=== PATIENT | male | born 1935 | race Caucasian/White ===

== ENCOUNTER 2023-08-04 13:37 | Outpatient (AMB) | payer OTHER, SELFPAY ==
--- NOTE | 2023-08-04 13:47 | MHC.OFFVIS ---
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: No Accompanied by: Spouse Allergies Penicillins [PENICILLINS] Allergy (Intermediate, Verified 08/04/23 13:54) RASH PENICILLIN Allergy (Unknown, Uncoded 08/04/23 13:54) Rash Medication List - Last Reconciled 08/04/23 by Clayton John MD acetaminophen ER (Tylenol Arthritis Pain) 650 mg PO Q12H ammonium lactate 12% 1 appl topical DAILY aspirin (Adult Aspirin Regimen) 81 mg PO DAILY carboxymethylcellulose sodium 0.5% 1 drp ophthalmic (eye) QID ferrous sulfate (Feosol) 325 mg PO DAILY latanoprost 0.005% 1 drp ophthalmic (eye) DAILY lisinopril 10 mg PO DAILY metoprolol tartrate 50 mg PO BID multivitamin (Multiple Vitamins tablet) 1 tab PO DAILY omeprazole 20 mg PO DAILY rosuvastatin 40 mg PO DAILY tamsulosin 0.4 mg PO BEDTIME HPI HPI Comments History of Present Illness Details Negar is here for consultation regarding coronary disease. History of CAD/PCI around 2001. Unclear anatomy. Any case, it seems that he has generally been stable all this while. No recurrent cardiac issues. [facility] Within limits of his activity, no clear-cut symptoms like angina or shortness of breath. Many comorbidities. [facility] Medical History (Updated 08/04/23 @ 14:20 by Clayton John MD) Right bundle branch block Peptic gastritis COPD (chronic obstructive pulmonary disease) TIA (transient ischemic attack) Benign prostatic hyperplasia Erectile dysfunction Hyperlipidemia, unspecified Essential hypertension BETINA (obstructive sleep apnea) Atherosclerotic cardiovascular disease Surgical History (Updated 08/04/23 @ 13:58 by Heather Mason) Hx of cardiac cath Family History (Updated 08/04/23 @ 13:59 by Heather Mason) Mother Stroke Father Glaucoma Social History (Updated 08/04/23 @ 13:59 by Heather Mason) Alcohol intake: never Patient Tobacco Use Status: Former Tobacco user Quit Date: 2001 Review of Systems Const Denies chills, Denies daytime sleepiness, Denies fatigue, Denies fever(s), Denies frequent falls, Denies night sweats, Denies snoring, Denies weakness, Denies weight gain and Denies weight loss Eyes Denies loss of vision ENT Denies dizziness and Denies hearing loss Card Denies chest pain, Denies chest pain with activity, Denies syncope, Denies rapid heart rate, Denies edema, Denies claudication, Denies leg edema, Denies lightheadedness, Denies palpitations, Denies dyspnea and Denies orthopnea Resp Denies cough, Denies excessive phlegm production, Denies dyspnea, Denies snoring and Denies wheezing GI Denies abdominal pain, Denies hematochezia, Denies change in bowel habits, Denies change in stool character, Denies heartburn, Denies nausea and Denies vomiting Denies hematuria, Denies dysuria and Denies urinary frequency Musc Denies arthralgias, Denies muscle weakness, Denies numbness and Denies tingling Skin/Breast Denies nail changes and Denies rash Neuro Denies Abnormal speech present, Denies dizziness, Denies syncope, Denies frequent falls, Denies loss of vision, Denies memory loss, Denies numbness, Denies tingling and Denies weakness Psych Denies depression and Denies memory loss Endo Denies fatigue and Denies palpitations Aller/Immun Denies wheezing Physical Exam Vital Signs: Last Vital Signs Pulse 64 08/04/23 13:53 BP 122/66 08/04/23 13:53 BMI result Body Mass Index 33.8 Const General: comfortable and no acute distress Orientation/consciousness: patient oriented x3 HEENT Other: Unremarkable Head: Yes normal to inspection Neck Neck: Yes normal visual inspection Chest Chest palpation & inspection: normal inspection of the chest Resp Auscultation: clear to auscultation bilaterally Cardio Palpation: normal PMI Heart sounds: S1 normal heart sound present, S2 normal heart sound present, no gallops, no murmurs and no rubs GI Palpation (GI): Soft to palpation Back/Spine/Pelvis Other: unremarkable Skin General skin exam: no rashes or lesions noted Neuro General: patient oriented x3 Speech: No Abnormal speech present Extrem General: Yes normal to inspection Psych Mental Status: mental status grossly normal Office Procedures EKG Details: EKG with sinus rhythm at 64/Min; right bundle-branch block pattern; PVC. 71499-[id number], Complete Assessment & Plan Assessment & Plan (1) Atherosclerotic cardiovascular disease: Code(s): I25.10 - Atherosclerotic heart disease of [place]choop[place] coronary artery without angina pectoris (2) Right bundle branch block: Code(s): I45.10 - Unspecified right bundle-branch block Plan Stable CAD, chronic right bundle-branch block. He can remain on aspirin and statins. LDL cholesterol is well controlled at 40 mg/dL. With regard to right bundle-branch block, yearly EKGs. We will also get an echocardiogram for cardiac function assessment. Orders: Orders CA echo transthoracic complete Today I25.10 - Atherosclerotic heart disease of [place]choopda coronary artery without angina pectoris Coding Level of Care Code New Pt Level 3 (94973) Diagnoses Atherosclerotic cardiovascular disease I25.10 Right bundle branch block I45.10 CPT Codes EKG - CPT: 22750-[id number], Complete ([id number])
[2023-08-04 13:53] VITALS: BP 122/66; PULSE 64; BMI 33.8
== END 2023-08-04 14:18 | disposition home or self-care (01) ==
PROVIDERS: PCP Physician Assistant; Referring Provider Physician Assistant; Visit Provider Internal Medicine
DX: I25.10 Atherosclerotic heart disease of native coronary artery without angina pectoris (principal); I45.10 Unspecified right bundle-branch block
CPT/HCPCS: 93010; 99203

== ENCOUNTER → 2023-08-04 13:37 | Outpatient (BNVA) | payer OTHER, SELFPAY | PROVIDERS: PCP Physician Assistant; Visit Provider Internal Medicine | DX: I25.10 Atherosclerotic heart disease of native coronary artery without angina pectoris (principal); I45.10 Unspecified right bundle-branch block | CPT/HCPCS: 93005; 99202 ==

== ENCOUNTER → 2023-08-27 09:38 | Outpatient (REF) | payer OTHER, SELFPAY ==
--- NOTE | 2023-08-27 09:43 | CA_ITS ---
Transthoracic Echocardiogram Patient (Last, First, Middle): Negar Knight, Gender: Male Date of : 1935 Age: 88 Procedure Date: 08/27/2023 Procedure Type: Transthoracic Echocardiogram Location: OP Height: 167.64 cm Weight: 92.99 kg BSA: 2.02 m2 Heart Rate: 50 bpm BP: 148 / [address] Judge: PÉREZ Referring MD: Clayton John MD Operating Room Specialist: Ken Saleem MD Symptoms: I25.10 - Atherosclerotic heart disease of yuhaaviatam coronary artery without... Study Quality: Fair w/Contrast ECG Rhythm: Bradycardia with PVCs Conclusions: - 1. Technically limited study despite use of contrast agent 2. Normal LV ejection fraction of 65-70% with impaired relaxation filling pattern 3. Early mild aortic stenosis 4. Upper limits of normal ascending aortic size 5. Normal RV systolic pressure Findings Procedure Information Contrast agent, definity, is being given per protocol without apparent complications. Left Ventricle Normal left ventricular size, thickness, and systolic function. The visually estimated ejection fraction is between 65-70%. Spectral Doppler is indicative of an impaired relaxation filling pattern. E/E prime ratio is between 8 and 15 consistent with indeterminate filling pressures. Right Ventricle The right ventricle was not well visualized. Atria The left atrium was not well visualized. Interatrial shunt cannot be excluded. The right atrium was not well visualized. Aortic Valve The aortic valve was not well visualized. There is mild calcification of the aortic valve. There is mild aortic valve stenosis. The peak aortic velocity is 1.74 m/s with a calculated peak gradient of 12 mmHg. The mean gradient is 6 mmHg. The aortic valve area is 2.11 cm2. There is no aortic valve regurgitation. Mitral Valve The mitral valve was not well visualized. There is no mitral valve regurgitation. There is no mitral valve stenosis. Pulmonic Valve The pulmonic valve was not well visualized. Tricuspid Valve Likely normal tricuspid valve structure and function. There is trace tricuspid valve regurgitation. The right ventricular systolic pressure is normal. Normal right atrial pressure. There is no evidence of pulmonary hypertension. Great Vessels The aorta was not well visualized. The pulmonary artery was not well visualized. Venous The inferior vena cava is normal in size and collapses greater than 50% with inspiration. Pericardium/Pleural The pericardium was not well visualized. Prior Study Comparison no previous study in the last 5 years for comparison Measurements 2D Linear Measurements IVSd: 1.08 0.6-0.9/0.6-1.0 cm LVIDd: 4.50 3.9-5.3/4.2-5.9 cm LVIDd Index: 2.23 2.4-3.2/2.2-3.1 cm/m2 LVIDs: 3.15 2.0-3.6 cm LVPWd: 1.14 0.7-1.1 cm LA Diam: 3.20 2.7-3.8/3.0-4.0 cm LAIDs Index: 1.58 1.5-2.3 cm/m2 LV Mass: 220.83 67-162/88-224 g LV Mass Index: 109.32 43-95/49-115 g/m2 LVOT Diam: 2.10 3.0+(-)1.3 cm 2D Systolic Function EF 4C: 66.30 >55% EF 2C: 74.50 >55% EF BiP: 70.60 >55% Mitral Valve MV Pk E: 0.88 MV PK A: 0.87 MV Decel Time: 255.00 E/A: 1.00 E'Lateral: 8.38 E'Medial: 4.68 E/E' Med: 18.90 E/E' Lat: 10.50 PHT: 75.00 MVA PHT: 2.93 Decel [place]: 3.46 Aortic Valve AoV Pk Neal: 1.74 AoV Mn Neal: 1.18 AoV VTI: 0.38 AoV Pk Grad: 12.00 Aov Mn Grad: 6.00 CULLEN Cont.VTI: 2.11 LVOT LVOT Pk Neal: 1.06 LVOT Mn Neal: 0.72 LVOT VTI: 0.23 LVOT Pk Grad: 4.00 LVOT Mn Grad: 2.00 LVOT Diam: 2.10 LVOT Area: 3.46 Diastolic Function MV Pk E: 0.88 MV Pk A: 0.87 E/A: 1.00 E'Medial: 4.68 E/E' Med: 18.90 E' Laterial: 8.38 E/E' Lat: 10.50 Right Ventricle TAPSE (mm): 22.90 TVS' Neal: 12.10 Tricuspid Valve TR Pk Neal: 1.50 TR Pk Grad: 9.00 RA Press: 15.00 RVSP: 24.00 Great Vessels Aorta Sinus of Valsalva: 4.00 2.0-3.5 cm Ao Asc: 3.50 2.1-3.4 cm Pulmonary Valve PV Pk Neal: 0.77 Peak PV Grad: 2.00 Updated in Other Vendor System with Status of Final Ken Saleem MD electronically signed on 08/27/2023 4:50:48 PM with status of Final
== END ==
LOC: HO.CARD 09:38
PROVIDERS: PCP Physician Assistant; Visit Provider Internal Medicine
DX: I25.10 Atherosclerotic heart disease of native coronary artery without angina pectoris (principal)
CPT/HCPCS: 93306; Q9957

== ENCOUNTER → 2023-08-27 09:43 | Outpatient (BNV) | payer OTHER, SELFPAY | PROVIDERS: PCP Physician Assistant; Visit Provider Internal Medicine Cardiovascular Disease | DX: I35.0 Nonrheumatic aortic (valve) stenosis (principal); I25.10 Atherosclerotic heart disease of native coronary artery without angina pectoris | CPT/HCPCS: 93306 ==

== ENCOUNTER 2024-05-16 13:58 | Outpatient (AMB) | payer OTHER, SELFPAY ==
--- OUTSIDE RECORDS SUMMARY | 2024-05-16 14:03 | XMS_ITS | Encounter Summary ---
Author Name [facility] [place] [facility] [place] Address [address] [place] [address] Care Team Providers Care Line Lead Name Role Phone KIARA ESPARZA Primary Care Provider Unavail able Insurance Providers: All historical and current Section Date Range: From patient's date of to the date document was created. This section includes the names of all active insurance providers for the patient. Insurance Provider Type of Coverage Plan Name Start of Policy Coverage End of Policy Coverage Group Number Member ID Insurance Provider's Telephone Number Policy Colbert's Name Patient's Relationship to Policy Colbert [facility] (WNR) MEDICARE ADVANTAGE [facility] (WNR) Jun 01, 2017 [id number] Krishan TATE PATIENT [facility] (WNR) MEDICARE ADVANTAGE [facility] (WNR) Jun 01, 2017 [id number] [phone] Krishan TATE PATIENT [facility] (WNR) MEDICARE ADVANTAGE [facility] (WNR) Jun 01, 2017 [id number] Krishan TATE PATIENT Selected Encounter This section includes the information on record at [place] for the Encounter. Date/Time Encounter Type Encounter Description Reason Pro vider Source Jun 11, 2023 12:45 PM Outpatient Encounter PM&RS PHYSICIAN IHE Encounter Template Text not used by [place] Plan of Treatment: Future Appointments (+ 6 months) and Future Tests (+/- 45 days) The Plan of Treatment section includes future care activities for the patient from all [place] treatmentfacilities. This section includes future appointments and future orders which are active, pending or scheduled. Future Appointments This section includes appointments that were scheduled to occur 6 months from the date of the Encounter, up to a maximum of 20 appointments. The data comes from all [place] treatment facilities. Appointment Date/Time Appointment Type Appointme nt Facility Name Jun 18, 2023 02:00 PM [facility]UL[facility]INE [facility] [place] [facility] Jul 09, 2023 10:30 AM AMBULATORY - REHAB MEDICIN [facility] [place] [facility] Jul 30, 2023 02:00 PM AMBULATORY - MEDICINE [facility] [place] [facility] Jul 30, 2023 02:15 PM AMBULATORY - MEDICINE [facility] [place] [facility] Jul 30, 2023 02:30 PM AMBULATORY - MEDICINE [facility] [place] [facility] Aug 04, 2023 02:00 PM AMBULATORY - MEDICINE [place] [facility] [place] [facility] Aug 07, 2023 09:30 AM AMBULATORY - MEDICINE [place] [facility] [place] [facility] Aug 17, 2023 11:30 AM AMBULATORY - MEDICINE [facility] [place] [facility] Aug 26, 2023 01:00 PM AMBULATORY - MEDICINE [facility] [place] [facility] Sep 28, 2023 10:30 AM AMBULATORY - MEDICINE [facility] [place] [facility] Nov 02, 2023 11:30 AM AMBULATORY - MEDICINE [place] [facility] [place] [facility] Lab Results: +/- 30 days of the encounter This section includes the Chemistry and Hematology Lab Results on record with [place] for the patient. Radiology Reports and Pathology Reports are provided separately, in subsequent sections. Lab Results This section contains the Chemistry/Hematology Results that were resulted 30 days before or 30 daysafter the date of the Encounter. Date/Time Source Result Type Result - Unit Interpretation Reference Range Comment Jun 02, 2023 03:30 PM [facility] HEMOGLOBIN A1C PANEL Specimen Type: BLOOD Comment: Values obtained from A1C measurements can vary. For atypical A1C assays, a reported value of 7.0 could actually be between 6.72 and 7.28 if measured by a reference method. A reported value of 9.0 could actually be between 8.73 and 9.27. Ref: http://www.ngs p.org/CAPdata. asp Ordering Provider: SOLOMON ESPARZA F Report Released Date/Time: Mar 02, 2023 10:38 AM Reporting Lab: [address] [address] Performing Lab: [address] [address] HEMOGLOBIN A1C 5.2 4.0-5.6 Jun 02, 2023 03:30 PM [facility] LIVER FUNCTION Specimen Type: SERUM No comment entered. Ordering Provider: SOLOMON ESPARZA F Report Released Date/Time: Mar 02, 2023 10:38 AM Reporting Lab: [address] [address] Performing Lab: [address] [address] PROTEIN,TOTAL 6.6 g/dL 6.0-8.3 ALBUMIN 4.0 g/dL 3.5-5.0 ALKALINE PHOSPHATASE 44 U/L 40-150 AST 17 U/L 5-34 ALT 17 U/L BILIRUBIN, TOTAL 0.3 mg/dL 0.2-1.2 Jun 02, 2023 03:30 PM [facility] BASIC METABOLIC PANEL (fasting) Specimen Type: SERUM No comment entered. Ordering Provider: SOLOMON ESPARZA F Report Released Date/Time: Mar 02, 2023 10:38 AM Reporting Lab: [address] [address] Performing Lab: [address] [place] [address] UREA NITROGEN 14 mg/dL 7-25 GLUCOSE 114 mg/dL H 65-100 SODIUM 140 mmol/L 135-145 POTASSIUM 4.3 mmol/L 3.5-5.0 CHLORIDE 109 mmol/L 100-110 CO2 24 meq/L 20-30 CREATININE, Serum 0.81 mg/dL 0.50-1.40 eGFR(CKD-EPI 2020) 85 mL/min >60 Jun 02, 2023 03:30 PM [facility] LIPID PANEL FASTING Specimen Type: SERUM No comment entered. Ordering Provider: SOLOMON ESPARZA Report Released Date/Time: Mar 02, 2023 10:38 AM Reporting Lab: [address] [address] Performing Lab: [address] [address] CHOLESTEROL 120 mg/dL TRIGLYCERIDE 504 mg/dL H 0-150 LDL calculated Reflex to dLD L mg/dL 0-129 CHOL/HDL 4.1 HDL CHOLESTEROL 29 mg/dL L 40-60 LDL DIRECT 48 mg/dL Social History: Smoking Status (Most current) and Tobacco Use (All prior to encounter date) This section includes the most current, and the historical, smoking and tobacco- related health factors from the [place] facility where the Encounter took place. Current Smoking Status This section includes the most current smoking, or tobacco-related health factor, from the [place] facility where the Encounter took place. Date/Time Current Smoking Status Comment [facility] Oct 31, 2022 11:30 AM VA-TOBACCO FORMER USER [facility] Tobacco Use History This section includes a history of the smoking, or tobacco-related health factors, that were collected on or before the date of the Encounter. The data comes from the [place] facility where the Encounter took place. Date/Time Smoking Status/Tobac co Use Comment [facility] Oct 31, 2022 11:30 AM VA-TOBACCO QUIT 15 YRS OR MORE [facility] Sep 17, 2021 03:00 PM VA-TOBACCO FORMER USER [facility] Sep 17, 2021 03:00 PM VA-TOBACCO QUIT 15 YRS OR MORE [facility] [place] [facility] Aug 15, 2020 10:00 AM VA-TOBACCO FORMER USER [place] [facility] [place] [facility] Aug 15, 2020 10:00 AM VA-TOBACCO QUIT 15 YRS OR MORE [place] [facility] [place] [facility] May 12, 2019 03:07 PM VA-TOBACCO FORMER USER [place] [facility] [place] [facility] May 12, 2019 03:07 PM VA-TOBACCO QUIT 15 YRS OR MORE [place] [facility] [place] [facility] May 31, 2018 01:08 PM VA-TOBACCO FORMER USER [place] [facility] [place] [facility] May 31, 2018 01:08 PM VA-TOBACCO QUIT 15 YRS OR MORE [facility] [place] [facility] Feb 16, 2017 01:33 PM QUIT TOBACCO USE > 7 YEARS AGO quit 16 years ago [place] [facility] [place] [facility] Nov 13, 2015 03:48 PM QUIT TOBACCO USE > 7 YEARS AGO . [facility] [place] [facility] May 12, 2013 12:49 PM QUIT TOBACCO USE > 7 YEARS AGO quit 2001 [facility] Advance Directives: All historical and current Section Date Range: From patient's date of to the date document was created. This section includes ALL of a patient's completed or amended [place] Advance and Rescinded Directives. The entries below indicate that a directive exists for the patient, but an actual copy is not included with this document. The data comes from all [place] facilities. Date Advance Directives Provider Source Nov 03, 2022 ADVANCE DIRECTIVE LENORA CARCAMO [facility] [place] [facility] Aug 16, 2020 ADVANCE DIRECTIVE EDMUND MORGAN [facility] Encounter Notes: All associated encounter notes This section contains the clinical notes associated to the Encounter. Date/Time Encounter Note(s) Provider Source Jun 11, 2023 12:51 PM LETTERS: LOCAL TITLE: PATIENT LETTER (B) STANDARD TITLE: LETTERS DATE OF NOTE: JUN 11, 2023@12:51 ENTRY DATE: JUN 11, 2023@12:51:05 AUTHOR: ANA MARIA ESPINO COSIGNER: URGENCY: STATUS: COMPLETED [facility] Toll Free Number [facility] scheduling can be reached at ext. [phone] [facility]- ext. [phone] [facility]- ext. [phone] [facility]- ext. [phone] JUN 11, 2023 CHAR TATE [address] [place], [place] [address] Dear CHAR TATE Thank you for choosing the Department of [facility] ([place]) [facility] as your primary choice for health care. As a partner in your health care, we are contacting you in writing since we have been unsuccessful in our attempts to reach you to date. We want to assure you we are doing everything possible to schedule Veterans for their [place] medical care appointments. Our records indicate you are due for an appointment in MED REHAB . If you would like to be seen, please contact [facility] at ext. [phone] to schedule an appointment. Thank you for your service to our nation, and we look forward to hearing from you soon. Sincerely, [facility] [address] [facility] [address] [place] [address] [place] [address] [facility] [address] [facility] [address] [place] [address] [place] [address] ext. [phone] [facility] [address] [facility] [address] [place] [address] [place] [address] ext. [phone] ANA MARIA ESPINO [place] [facility] [place] [facility] Jun 11, 2023 12:45 PM ADMINISTRATIVE NOT E: LOCAL TITLE: ADMINISTRATIVE RECALL NOTE STANDARD TITLE: ADMINISTRATIVE NOTE DATE OF NOTE: JUN 11, 2023@12:45 ENTRY DATE: JUN 11, 2023@12:49:54 AUTHOR: ANA MARIA ESPINO EXP COSIGNER: URGENCY: STATUS: COMPLETED RTC orders: Unable to contact patient: Attempts to contact: 1st attempt: Left voicemail 2nd attempt: Letter mailed 3rd attempt: 4th attempt: Disposition on Jun PID 06/22/2023 /[email or web address]/ ANA MARIA ESPINO ADVANCED VASCULAR RADIOLOGIST Signed: 06/11/2023 12:51 ANA MARIA ESPINO [facility]
--- OUTSIDE RECORDS SUMMARY | 2024-05-16 14:03 | XMS_ITS | Encounter Summary ---
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 Name Role Phone LUIS F CASH Primary Care Provider Unavail able Insurance Providers: [...] Colbert's Name Patient's Relationship to Policy Colbert BCBS [facility] (WNR) MEDICARE ADVANTAGE [facility] (WNR) Jun 01, 2017 [id number] Krishan TATE PATIENT [employer]BS [facility] (WNR) MEDICARE ADVANTAGE [facility] (WNR) Jun 01, 2017 [id number] [phone] Krishan TATE PATIENT [employer]BS [facility] (WNR) MEDICARE ADVANTAGE [facility] (WNR) Jun 01, 2017 [id number] Krishan TATE PATIENT Selected Encounter This section includes the information on record at [place] for the Encounter. Date/Time Encounter Type Encounter Description Reason Pro vider Source May 17, 2023 05:42 PM Outpatient Encounter ADMIN PAT ACTIVTIES (MASNONCT) I[facility] Encounter Template Text not used by [place] Plan of Treatment: Future Appointments (+ 6 months) and Future Tests (+/- 45 days) The Plan of Treatment section includes future care activities for the patient from all [place] treatmentfacilities. This section includes future appointments and future orders which are active, pending or scheduled. Future Appointments This section includes appointments that were scheduled to occur 6 months from the date of the Encounter, up to a maximum of 20 appointments. The data comes from all [place] treatment facilities. Appointment Date/Time Appointment Type Appointme nt Facility Name Jun 02, 2023 02:30 PM [facility]ULATORY [facility] MEDICINE [facility] [place] [facility] Jun 09, 2023 09:30 AM AMBULATORY - MEDICINE [facility] [place] [facility] Jun 18, 2023 02:00 PM AMBULATORY - MEDICINE [facility] [place] [facility] Jul 09, 2023 10:30 AM AMBULATORY - REHAB MEDICIN E [facility] [place] [facility] Jul 30, 2023 02:00 PM AM[facility]ULATORY [facility] MEDICINE [facility] [place] [facility] Jul 30, 2023 02:15 PM AM[facility]ULATORY - MEDICINE [facility] [place] [facility] Jul 30, 2023 02:30 PM [facility]ULATORY [facility] MEDICINE [facility] [place] [facility] Aug 04, 2023 02:00 PM AMBULATORY - MEDICINE [facility] [place] [facility] Aug 07, 2023 09:30 AM AM[facility]ULATORY - MEDICINE [facility] [place] [facility] Aug 17, 2023 11:30 AM AMBULATORY - MEDICINE [facility] [place] [facility] Aug 26, 2023 01:00 PM AMBULATORY - MEDICINE [facility] [place] [facility] Sep 28, 2023 10:30 AM AMBULATORY - MEDICINE [facility] [place] [facility] Nov 02, 2023 11:30 AM AMBULATORY - MEDICINE [facility] [place] [facility] Lab Results: +/- 30 days of the encounter This section includes the Chemistry and Hematology Lab Results on record with [place] for the patient. Radiology Reports and Pathology Reports are provided separately, in subsequent sections. Lab Results This section contains the Chemistry/Hematology Results that were resulted 30 days before or 30 daysafter the date of the Encounter. Date/Time Source Result Type Result - Unit Interpretation Reference Range Comment Jun 02, 2023 03:30 PM [facility] HEMOGLOBIN A1C PANEL Specimen Type: BLOOD Comment: Values obtained from A1C measurements can vary. For atypical A1C assays, a reported value of 7.0 could actually be between 6.72 and 7.28 if measured by a reference method. A reported value of 9.0 could actually be between 8.73 and 9.27. Ref: http://www.ngs p.org/CAPdata. asp Ordering Provider: SOLOMON CASH Report Released Date/Time: Mar 02, 2023 10:38 AM Reporting Lab: [address] [address] Performing Lab: [address] [address] HEMOGLOBIN A1C 5.2 4.0-5.6 Jun 02, 2023 03:30 PM [facility] LIVER FUNCTION Specimen Type: SERUM No comment entered. Ordering Provider: SOLOMON CASH Report Released Date/Time: Mar 02, 2023 10:38 AM Reporting Lab: [address] [address] Performing Lab: [address] [address] PROTEIN,TOTAL 6.6 g/dL 6.0-8.3 ALBUMIN 4.0 g/dL 3.5-5.0 ALKALINE PHOSPHATASE 44 U/L 40-150 AST 17 U/L 5-34 ALT 17 U/L BILIRUBIN, TOTAL 0.3 mg/dL 0.2-1.2 Jun 02, 2023 03:30 PM [facility] LIPID PANEL FASTING Specimen Type: SERUM No comment entered. Ordering Provider: VANWAGNER,WILL NEREIDA F Report Released Date/Time: Mar 02, 2023 10:38 AM Reporting Lab: [facility] [address] [address] Performing Lab: [address] [address] CHOLESTEROL 120 mg/dL TRIGLYCERIDE 504 mg/dL H 0-150 LDL calculated Reflex to dLD L mg/dL 0-129 CHOL/HDL 4.1 HDL CHOLESTEROL 29 mg/dL L 40-60 LDL DIRECT 48 mg/dL Jun 02, 2023 03:30 PM [facility] BASIC METABOLIC PANEL (fasting) Specimen Type: SERUM No comment entered. Ordering Provider: SOLOMON CASH F Report Released Date/Time: Mar 02, 2023 10:38 AM Reporting Lab: [facility] [address] [address] Performing Lab: [address] [address] UREA NITROGEN 14 mg/dL 7-25 GLUCOSE 114 mg/dL H 65-100 SODIUM 140 mmol/L 135-145 POTASSIUM 4.3 mmol/L 3.5-5.0 CHLORIDE 109 mmol/L 100-110 CO2 24 meq/L 20-30 CREATININE, Serum 0.81 mg/dL 0.50-1.40 eGFR(CKD-EPI 2020) 85 mL/min >60 Social History: Smoking Status (Most current) and Tobacco Use (All prior to encounter date) This section includes the most current, and the historical, smoking and tobacco- related health factors from the [place] facility where the Encounter took place. Current Smoking Status This section includes the most current smoking, or tobacco-related health factor, from the [place] facility where the Encounter took place. Date/Time Current Smoking Status Comment [facility] Oct 31, 2022 11:30 AM VA-TOBACCO FORMER USER [facility] Tobacco Use History This section includes a history of the smoking, or tobacco-related health factors, that were collected on or before the date of the Encounter. The data comes from the [place] facility where the Encounter took place. Date/Time Smoking Status/Tobac co Use Comment [facility] Oct 31, 2022 11:30 AM [place]-TOBACCO QUIT 15 YRS OR MORE [facility] [place] [facility] Sep 17, 2021 03:00 PM VA-TOBACCO FORMER USER [facility] [place] [facility] Sep 17, 2021 03:00 PM VA-TOBACCO QUIT 15 YRS OR MORE [facility] [place] [facility] Aug 15, 2020 10:00 AM VA-TOBACCO FORMER USER [facility] [place] [facility] Aug 15, 2020 10:00 AM VA-TOBACCO QUIT 15 YRS OR MORE [facility] [place] [facility] May 12, 2019 03:07 PM VA-TOBACCO FORMER USER [facility] [place] [facility] May 12, 2019 03:07 PM VA-TOBACCO QUIT 15 YRS OR MORE [facility] [place] [facility] May 31, 2018 01:08 PM VA-TOBACCO FORMER USER [facility] [place] [facility] May 31, 2018 01:08 PM VA-TOBACCO QUIT 15 YRS OR MORE [facility] [place] [facility] Feb 16, 2017 01:33 PM QUIT TOBACCO USE > 7 YEARS AGO quit 16 years ago [facility] [place] [facility] Nov 13, 2015 03:48 PM QUIT TOBACCO USE > 7 YEARS AGO . [facility] [place] [facility] May 12, 2013 12:49 PM QUIT TOBACCO USE > 7 YEARS AGO quit 2002 [facility] Advance Directives: All historical and current Section Date Range: From patient's date of to the date document was created. This section includes ALL of a patient's completed or amended [place] Advance and Rescinded Directives. The entries below indicate that a directive exists for the patient, but an actual copy is not included with this document. The data comes from all [place] facilities. Date Advance Directives Provider Source Nov 03, 2022 ADVANCE DIRECTIVE LENORA CARCAMO [facility] [place] [facility] Aug 16, 2020 ADVANCE DIRECTIVE EDMUND MORGAN [place] [facility] Encounter Notes: All associated encounter notes This section contains the clinical notes associated to the Encounter. Date/Time Encounter Note(s) Provider Source May 17, 2023 05:42 PM PHARMACY NOTE: LOCAL TITLE: V1 PHARMACY CUSTOMER CARE MEDICATION RENEWAL STANDARD TITLE: PHARMACY NOTE DATE OF NOTE: MAY 17, 2023@17:42 ENTRY DATE: MAY 17, 2023@17:42:08 AUTHOR: MARYBETH CHEN EXP COSIGNER: URGENCY: STATUS: COMPLETED Date: May Division: [facility] referred by Pharmacy Call Center for medication renewal: Non-controlled/maintenance medication Medications requested: [id number] CARBOXYMETHYLCELLULOSE NA 0.5% OPH SOLN Defer to primary care provider To be mailed . Please review and renew if appropriate. *This note was generated by [facility] Pharm[facility] Customer Care. If you have any questions or need assistance, do not contact this author. Please refer all questions to your local, on-site pharmacy departments. /elizabeth/ MARYBETH CHEN CPhT Paramedic Rn, [place]Pharm[facility] Customer Care Signed: 05/17/2023 17:42 Receipt Acknowledged By: 05/18/2023 08:40 /es/ JANES DALLAS RN REGISTERED NURSE 05/17/2023 17:54 /elizabeth/ Luis F Cash PA-C STAFF PHYSICIAN CATHODE BUILDER [facility]
--- OUTSIDE RECORDS SUMMARY | 2024-05-16 14:03 | XMS_ITS ---
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 Name Role Phone KIARA CASH Primary Care Provider Unavail able Insurance [...] Colbert's Name Patient's Relationship to Policy Colbert [facility] (WNR) MEDICARE ADVANTAGE [facility] (WNR) Jun 01, 2017 [id number] Krishan TATE PATIENT [facility] (WNR) MEDICARE ADVANTAGE [facility] (WNR) Jun 01, 2017 [id number] Krishan TATE PATIENT [facility] (WNR) MEDICARE ADVANTAGE [facility] (WNR) Jun 01, 2017 [id number] Krishan TATE PATIENT Selected Encounter This section includes the information on record at [place] for the Encounter. Date/Time Encounter Type Encounter Description Reason Provider Source Jun 02, 2023 02:30 PM OFFICE O/P EST LOW 20 MIN PRIMARY CARE/MEDICINE ICD-10-CM I11.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 STEVE CASH IH Encounter Template Text not used by [place] Assessments - Encounter Diagnoses This section includes the primary and secondary diagnoses documented for the Encounter. Date/Time Primary/Secondary Diagnosis Diagnosis Name Provider Source Jun 02, 2023 03:00 PM PRIMARY Hypertensive heart disease without heart failure STEVE CASH [place] [facility] [place] [facility] Jun 02, 2023 03:00 PM SECONDARY Encounter for immunization NATANAEL HOUSTON [place] [facility] [place] [facility] Jun 02, 2023 03:00 PM SECONDARY Primary generalized (osteo)arthritis STEVE CASH [place] [facility] [place] [facility] Jun 02, 2023 03:00 PM SECONDARY Sleep apnea, unspecified [facility]E CASH [facility] [place] [facility] Plan of Treatment: Future Appointments (+ 6 months) and Future Tests (+/- 45 days) The Plan of Treatment section includes future care activities for the patient from all [place] [facility]. This section includes future appointments and future orders which are active, pending or scheduled. Future Appointments This section includes appointments that were scheduled to occur 6 months from the date of the Encounter, up to a maximum of 20 appointments. The data comes from all [place] treatment facilities. Appointment Date/Time Appointment Type Appointme nt Facility Name Jun 09, 2023 09:30 AM AMBULATORY - MEDICINE [place] [facility] [place] [facility] Jun 18, 2023 02:00 PM AMBULATORY - MEDICINE [place] [facility] [place] [facility] Jul 09, 2023 10:30 AM AMBULATORY - REHAB MEDICIN [facility] [place] [facility] Jul 30, 2023 02:00 PM AMBULATORY - MEDICINE [place] [facility] [place] [facility] Jul 30, 2023 02:15 PM AMBULATORY - MEDICINE [place] [facility] [place] [facility] Jul 30, 2023 02:30 PM AMBULATORY - MEDICINE [place] [facility] [place] [facility] Aug 04, 2023 02:00 PM AMBULATORY - MEDICINE [place] [facility] [place] [facility] Aug 07, 2023 09:30 AM AMBULATORY - MEDICINE [place] [facility] [place] [facility] Aug 17, 2023 11:30 AM AMBULATORY - MEDICINE [place] [facility] [place] [facility] Aug 26, 2023 01:00 PM AMBULATORY - MEDICINE [place] [facility] [place] [facility] Sep 28, 2023 10:30 AM AMBULATORY - MEDICINE [place] [facility] [place] [facility] Nov 02, 2023 11:30 AM [facility] Lab Results: +/- 30 days of the encounter This section includes the Chemistry and Hematology Lab Results on record with [place] for the patient. Radiology Reports and Pathology Reports are provided separately, in subsequent sections. Lab Results This section contains the Chemistry/Hematology Results that were resulted 30 days before or 30 daysafter the date of the Encounter. Date/Time Source Result Type Result - Unit Interpretation Reference Range Comment Jun 02, 2023 03:30 PM [facility] HEMOGLOBIN A1C PANEL Specimen Type: BLOOD Comment: [...] Mar 02, 2023 10:38 AM Reporting Lab: [facility] [address] [facility] [address] Performing Lab: [facility] [address] [address] HEMOGLOBIN A1C 5.2 4.0-5.6 Jun 02, 2023 03:30 PM [facility] BASIC METABOLIC PANEL (fasting) Specimen Type: SERUM No comment entered. Ordering Provider: SOLOMON CASH F Report Released Date/Time: Mar 02, 2023 10:38 AM Reporting Lab: [facility] [address] [address] Performing Lab: [address] [address] UREA NITROGEN 14 mg/dL 7-25 GLUCOSE 114 mg/dL H 65-100 SODIUM 140 mmol/L 135-145 POTASSIUM 4.3 mmol/L 3.5-5.0 CHLORIDE 109 mmol/L 100-110 CO2 24 meq/L 20-30 CREATININE, Serum 0.81 mg/dL 0.50-1.40 eGFR(CKD-EPI 2020) 85 mL/min >60 Jun 02, 2023 03:30 PM [facility] LIVER FUNCTION Specimen Type: SERUM No comment entered. Ordering Provider: SOLOMON CASH F Report Released Date/Time: Mar 02, 2023 10:38 AM Reporting Lab: [address] [address] Performing Lab: [address] [address] PROTEIN,TOTAL 6.6 g/dL 6.0-8.3 ALBUMIN 4.0 g/dL 3.5-5.0 ALKALINE PHOSPHATASE 44 U/L 40-150 AST 17 U/L 5-34 ALT 17 U/L BILIRUBIN, TOTAL 0.3 mg/dL 0.2-1.2 Jun 02, 2023 03:30 PM [facility] LIPID PANEL FASTING Specimen Type: SERUM No comment entered. Ordering Provider: SOLOMON CASH F Report Released Date/Time: Mar 02, 2023 10:38 AM Reporting Lab: [address] [address] Performing Lab: [address] [address] CHOLESTEROL 120 mg/dL TRIGLYCERIDE 504 mg/dL H 0-150 LDL calculated Reflex to dLD L mg/dL 0-129 CHOL/HDL 4.1 HDL CHOLESTEROL 29 mg/dL L 40-60 LDL DIRECT 48 mg/dL Vital Signs: All taken on the encounter date This section contains inpatient and outpatient Vital Signs collected on the date of the Encounter. Date/Time Temperature Pulse Blood Pressure Respiratory Rate SP02 Pain Height Weight Body Mass Index Source Jun 02, 2023 02:24 PM 97.6 F 65 /min 140/70 mm[Hg] 16 /min 98 % 0 215 lb 38 [facility] [place] [facility] Immunizations: All administered on the encounter date This section contains immunizations associated to the Encounter. Immunization Series Date Issued Reaction Comments TDAP Jun 02, 2023 Social History: Smoking Status (Most current) and Tobacco Use (All prior to encounter date) This section includes the most current, and the historical, smoking and tobacco- related health factors from the [place] facility where the Encounter took place. Current Smoking Status This section includes the most current smoking, or tobacco-related health factor, from the [place] facility where the Encounter took place. Date/Time Current Smoking Status Comment [facility] Oct 31, 2022 11:30 AM VA-TOBACCO FORMER USER [place] [facility] [place] [facility] Tobacco Use History This section includes a history of the smoking, or tobacco-related health factors, that were collected on or before the date of the Encounter. The data comes from the [place] facility where the Encounter took place. Date/Time Smoking Status/Tobac co Use Comment Facility Oct 31, 2022 11:30 AM VA-TOBACCO QUIT 15 YRS OR MORE [facility] [place] [facility] Sep 17, 2021 03:00 PM VA-TOBACCO FORMER USER [facility] [place] [facility] Sep 17, 2021 03:00 PM VA-TOBACCO QUIT 15 YRS OR MORE [facility] [place] [facility] Aug 15, 2020 10:00 AM VA-TOBACCO FORMER USER [facility] [place] [facility] Aug 15, 2020 10:00 AM VA-TOBACCO QUIT 15 YRS OR MORE [facility] [place] [facility] May 12, 2019 03:07 PM VA-TOBACCO FORMER USER [facility] [place] [facility] May 12, 2019 03:07 PM VA-TOBACCO QUIT 15 YRS OR MORE [facility] [place] [facility] May 31, 2018 01:08 PM VA-TOBACCO FORMER USER [facility] [place] [facility] May 31, 2018 01:08 PM VA-TOBACCO QUIT 15 YRS OR MORE [facility] Feb 16, 2017 01:33 PM QUIT TOBACCO USE > 7 YEARS AGO quit 16 years ago [facility] Nov 13, 2015 03:48 PM QUIT TOBACCO USE > 7 YEARS AGO . [facility] May 12, 2013 12:49 PM QUIT TOBACCO USE > 7 YEARS AGO quit 2001 [facility] Advance Directives: All historical and current Section Date Range: From patient's date of to the date document was created. This section includes ALL of a patient's completed or amended [place] Advance and Rescinded Directives. The entries below indicate that a directive exists for the patient, but an actual copy is not included with this document. The data comes from all [place] facilities. Date Advance Directives Provider Source Nov 03, 2022 ADVANCE DIRECTIVE CARLOS ALBERTOLENORA [facility] Aug 16, 2020 ADVANCE DIRECTIVE EDMUND MORGAN [facility] Encounter Notes: All associated encounter notes This section contains the clinical notes associated to the Encounter. Date/Time Encounter Note(s) Provider Source Jun 04, 2023 04:30 PM ADDENDUM: LOCAL TITLE: Addendum STANDARD TITLE: ADDENDUM DATE OF NOTE: JUN 04, 2023@16:30:52 ENTRY DATE: JUN 04, 2023@16:30:53 AUTHOR: ALFA YOO COSIGNER: URGENCY: STATUS: COMPLETED Spoke with pt about lipid labs and would like to make an apt to discuss with CPP AMSA please schedule the following CWM/NO/PHARM PACT 3 TEL 06/09/23 @4567 X 30 MINS thank you! /shakir YOO PHARMD,BCPS CLINICAL PHARMACY PRACTITIONER Signed: 06/04/2023 16:32 Receipt Acknowledged By: 06/08/2023 10:57 /elizabeth/ SENTHIL BARBA ELIER --- Original Document --- 06/02/23 WILLOW NOTE: CC/HPI/A/P: 87 year old MALE here in follow-up for; With Anaya wearing a mask I have a cold' she reports a negative covid test last week. THey are at [facility] and are sure he got covid there this fall, will send docs. Review of systems: Patient reports no changes from [place] [place] [facility], in meds or any admissions. Active problems - Computerized Problem List is the source for the followin. Hematuria (SCT 36998539) 2. Inflamed Seborrheic Keratosis (SCT 31776607) 3. Glaucoma 4. Chronic gastric ulcer 5. Obesity 6. Primary generalized osteoarthritis 7. Obstructive sleep apnea syndrome 8. Coronary arteriosclerosis 9. Benign essential hypertension (SNOMED CT 4560337) 10. HYPERLIPIDEMIA 11. 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 BPH W/O URINARY OBSTRUCT SERVICE CONNECTED % - NONE FOUND VA and Non VA meds were reconciled with the patient who left with a corrected copy. See medication page for details. Active and Recently Outpatient Medications (excluding Supplies): Active Outpatient Medications Status 1) AMMONIUM LACTATE 12% LOTION APPLY MODERATE AMOUNT ACTIVE TOPICALLY ONCE DAILY FOR DRY IRRITATED SKIN 2) CARBOXYMETHYLCELLULOSE NA 0.5% OPH SOLN INSTILL 1 ACTIVE DROP INTO EACH EYE TWICE DAILY NEEDED FOR DRYNESS 3) DICLOFENAC NA 1% TOP GEL APPLY 2 GRAMS TOPICALLY FOUR ACTIVE TIMES A DAY FOR OSTEOARTHRITIS - USE DOSING CARD PROVIDED IN BOX APPLY TO HANDS 4) FERROUS SULFATE 325MG TAB TAKE ONE TABLET BY MOUTH ACTIVE ONCE DAILY TO SUPPLEMENT IRON 5) FLUTICASONE PROP 50MCG 120D NASAL INHL INSTILL 1 ACTIVE SPRAY INTO EACH NOSTRIL TWICE DAILY FOR NASAL IRRITATION/INFLAMMATION 6) HYLAN G-F20 48MG/6ML INJ SYRINGE 6ML INJECT 48MG/6ML HOLD INTRA-ARTICULAR NEEDED DIRECTED BY PROVIDER 7) LATANOPROST 0.005% OPH SOLN INSTILL 1 DROP INTO EACH ACTIVE EYE AT BEDTIME FOR INCREASED PRESSURE IN THE EYE 8) LISINOPRIL 10MG TAB TAKE ONE TABLET BY MOUTH ONCE ACTIVE DAILY TO CONTROL BLOOD PRESSURE 9) LUBRICATING (PF) OPH OINT APPLY THIN RIBBON INTO EACH ACTIVE EYE AT BEDTIME 10) METOPROLOL TARTRATE 50MG TAB TAKE ONE TABLET BY MOUTH ACTIVE TWICE DAILY FOR BLOOD PRESSURE/HEART 11) OMEPRAZOLE 20MG EC CAP TAKE ONE CAPSULE BY MOUTH ACTIVE EVERY MORNING 30 MINUTES BEFORE BREAKFAST 12) ROSUVASTATIN CA 40MG TAB TAKE ONE TABLET BY MOUTH ACTIVE ONCE DAILY FOR CHOLESTEROL 13) TAMSULOSIN HCL 0.4MG CAP TAKE ONE CAPSULE BY MOUTH ACTIVE ONCE DAILY 14) TIMOLOL MALEATE 0.5% OPH SOLN INSTILL 1 DROP INTO ACTIVE EACH EYE EVERY MORNING Active Non-VA Medications Status 1) Non-VA ACETAMINOPHEN 325MG TAB 650MG BY MOUTH TWICE ACTIVE DAILY 2) Non-VA ASPIRIN 81MG EC TAB 81MG BY MOUTH DAILY ACTIVE 3) Non-VA MULTIVITAMIN/MINERALS CAP/TAB 1 TABLET BY ACTIVE MOUTH EVERY MORNING 17 Total Medications 97.6 F [36.4 C] (06/02/2023 14:24) 65 (06/02/2023 14:24) 16 (06/02/2023 14:24) 140/70 (06/02/2023 14:24) 0 (06/02/2023 14:24) 63 in [160.0 cm] (03/02/2023 10:05) 215 lb [97.52 kg] (06/02/2023 14:24) BMI: 38.2 Neuro: Alert and oriented times three, grossly nonfocal, nasolabial folds intact. /es/ Kiara Cash PA-C STAFF PHYSICIAN AMERICAN STUDIES PROFESSOR Signed: 06/02/2023 15:00 06/04/2023 ADDENDUM STATUS: COMPLETED Please call, review lipids and meds, remind them to bring covid documenation to 1/18 podiatry visit, which may be a good time for F2f with you. I added lab order in 2 months as well. /elizabeth/ Kiara Cash PA-C STAFF PHYSICIAN AMERICAN STUDIES PROFESSOR Signed: 06/04/2023 12:29 Receipt Acknowledged By: 06/04/2023 16:30 /shakir YOO PHARMD, BCPS CLINICAL PHARMACY PRACTITIONER ALFA YOO [place] [facility] [facility] Jun 04, 2023 12:27 PM ADDENDUM: LOCAL TITLE: Addendum STANDARD TITLE: ADDENDUM DATE OF NOTE: JUN 04, 2023@12:27:57 ENTRY DATE: JUN 04, 2023@12:27:58 AUTHOR: KIARA CASH EXP COSIGNER: URGENCY: STATUS: COMPLETED Please call, review lipids and meds, remind them to bring covid documenation to 1/18 podiatry visit, which may be a good time for F2f with you. I added lab order in 2 months as well. /elizabeth/ Kiara Cash PA-C STAFF PHYSICIAN AMERICAN STUDIES PROFESSOR Signed: 06/04/2023 12:29 Receipt Acknowledged By: 06/04/2023 16:30 /elizabeth/ ALFA YOO PHARMD, BCPS CLINICAL PHARMACY PRACTITIONER --- Original Document --- 06/02/23 WILLOW NOTE: CC/HPI/A/P: 87 year old MALE here in follow-up for; With Anaya wearing a mask I have a cold' she reports a negative covid test last week. THey are at [facility] and are sure he got covid there this fall, will send docs. Review of systems: Patient reports no changes from [facility], in meds or any admissions. Active problems - Computerized Problem List is the source for the followin. Hematuria ([facility] [id number]) 2. Inflamed Seborrheic Keratosis ([facility] 34054375) 3. Glaucoma 4. Chronic gastric ulcer 5. Obesity 6. Primary generalized osteoarthritis 7. Obstructive sleep apnea syndrome 8. Coronary arteriosclerosis 9. Benign essential hypertension (SNOMED CT 3041549) 10. HYPERLIPIDEMIA 11. 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 BPH W/O URINARY OBSTRUCT SERVICE CONNECTED % - NONE FOUND VA and Non VA meds were reconciled with the patient who left with a corrected copy. See medication page for details. Active and Recently Outpatient Medications (excluding Supplies): Active Outpatient Medications Status 1) AMMONIUM LACTATE 12% LOTION APPLY MODERATE AMOUNT ACTIVE TOPICALLY ONCE DAILY FOR DRY IRRITATED SKIN 2) CARBOXYMETHYLCELLULOSE NA 0.5% OPH SOLN INSTILL 1 ACTIVE DROP INTO EACH EYE TWICE DAILY NEEDED FOR DRYNESS 3) DICLOFENAC NA 1% TOP GEL APPLY 2 GRAMS TOPICALLY FOUR ACTIVE TIMES A DAY FOR OSTEOARTHRITIS - USE DOSING CARD PROVIDED IN BOX APPLY TO HANDS 4) FERROUS SULFATE 325MG TAB TAKE ONE TABLET BY MOUTH ACTIVE ONCE DAILY TO SUPPLEMENT IRON 5) FLUTICASONE PROP 50MCG 120D NASAL INHL INSTILL 1 ACTIVE SPRAY INTO EACH NOSTRIL TWICE DAILY FOR NASAL IRRITATION/INFLAMMATION 6) HYLAN G-F20 48MG/6ML INJ SYRINGE 6ML INJECT 48MG/6ML HOLD INTRA-ARTICULAR NEEDED DIRECTED BY PROVIDER 7) LATANOPROST 0.005% OPH SOLN INSTILL 1 DROP INTO EACH ACTIVE EYE AT BEDTIME FOR INCREASED PRESSURE IN THE EYE 8) LISINOPRIL 10MG TAB TAKE ONE TABLET BY MOUTH ONCE ACTIVE DAILY TO CONTROL BLOOD PRESSURE 9) LUBRICATING (PF) OPH OINT APPLY THIN RIBBON INTO EACH ACTIVE EYE AT BEDTIME 10) METOPROLOL TARTRATE 50MG TAB TAKE ONE TABLET BY MOUTH ACTIVE TWICE DAILY FOR BLOOD PRESSURE/HEART 11) OMEPRAZOLE 20MG EC CAP TAKE ONE CAPSULE BY MOUTH ACTIVE EVERY MORNING 30 MINUTES BEFORE BREAKFAST 12) ROSUVASTATIN CA 40MG TAB TAKE ONE TABLET BY MOUTH ACTIVE ONCE DAILY FOR CHOLESTEROL 13) TAMSULOSIN HCL 0.4MG CAP TAKE ONE CAPSULE BY MOUTH ACTIVE ONCE DAILY 14) TIMOLOL MALEATE 0.5% OPH SOLN INSTILL 1 DROP INTO ACTIVE EACH EYE EVERY MORNING Active Non-VA Medications Status 1) Non-VA ACETAMINOPHEN 325MG TAB 650MG BY MOUTH TWICE ACTIVE DAILY 2) Non-VA ASPIRIN 81MG EC TAB 81MG BY MOUTH DAILY ACTIVE 3) Non-VA MULTIVITAMIN/MINERALS CAP/TAB 1 TABLET BY ACTIVE MOUTH EVERY MORNING 17 Total Medications 97.6 F [36.4 C] (06/02/2023 14:24) 65 (06/02/2023 14:24) 16 (06/02/2023 14:24) 140/70 (06/02/2023 14:24) 0 (06/02/2023 14:24) 63 in [160.0 cm] (03/02/2023 10:05) 215 lb [97.52 kg] (06/02/2023 14:24) BMI: 38.2 Neuro: Alert and oriented times three, grossly nonfocal, nasolabial folds intact. /elizabeth/ Kiara Cash PA-C STAFF PHYSICIAN AMERICAN STUDIES PROFESSOR Signed: 06/02/2023 15:00 06/04/2023 ADDENDUM STATUS: UNSIGNED You may not VIEW this UNSIGNED Addendum. KIARA CASH [place] [facility] [place] [facility] Jun 02, 2023 03:14 PM PREVENTIVE MEDICINE NURSING NOTE: LOCAL TITLE: CLINICAL REMINDERS/NURSING STANDARD TITLE: PREVENTIVE MEDICINE NURSING NOTE DATE OF NOTE: JUN 02, 2023@15:14 ENTRY DATE: JUN 02, 2023@15:14:38 AUTHOR: GATITO HOUSTON EXP COSIGNER: URGENCY: STATUS: COMPLETED Td / Tdap Immunization: Administered: TDAP Date Administered: Jun 02, 2023 14:30 Series: [employer] Team Leader: Adenyo Lot: [id number] Exp Date: Jun 30, 2025 [facility]: [phone] Admin Route/Site: INTRAMUSCULAR/LEFT DELTOID Dosage: 0.5mL Vaccine Information Statement(s): TDAP (TETANUS, DIPHTHERIA, PERTUSSIS) VACCINE VIS Jan 04, 2021 ([place]AY) Order By: Policy Administered By: Gatito [place] Vaccine Information Sheet (VIS) was given to the patient/caregiver, education regarding adverse reactions was discussed, as well as barriers to learning, if any, were acknowledged. /elizabeth/ GATITO HOUSTON LPN GATITO HOUSTON UNDER BASTER Signed: 06/02/2023 15:16 LEON HOUSTON [place] [facility] [place] [facility] Jun 02, 2023 02:58 PM PHYSICIAN AMERICAN STUDIES PROFESSOR NOTE: LOCAL TITLE: PA NOTE STANDARD TITLE: PHYSICIAN AMERICAN STUDIES PROFESSOR NOTE DATE OF NOTE: JUN 02, 2023@14:58 ENTRY DATE: JUN 02, 2023@14:58:44 AUTHOR: KIARA CASH COSIGNER: URGENCY: STATUS: COMPLETED WILLOW NOTE Has ADDENDA CC/HPI/A/P: 87 year old MALE here in follow-up for; With Anaya wearing a mask I have a cold' she reports a negative covid test last week. THey are at [facility] and are sure he got covid there this fall, will send docs. Review of systems: Patient reports no changes from [facility], in meds or any admissions. Active problems - Computerized Problem List is the source for the followin. Hematuria (SCT [id number]) 2. Inflamed Seborrheic Keratosis (SCT 58868994) 3. Glaucoma 4. Chronic gastric ulcer 5. Obesity 6. Primary generalized osteoarthritis 7. Obstructive sleep apnea syndrome 8. Coronary arteriosclerosis 9. Benign essential hypertension (SNOMED CT 9275264) 10. HYPERLIPIDEMIA 11. 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 BPH W/O URINARY OBSTRUCT SERVICE CONNECTED % - NONE FOUND VA and Non VA meds were reconciled with the patient who left with a corrected copy. See medication page for details. Active and Recently Outpatient Medications (excluding Supplies): Active Outpatient Medications Status 1) AMMONIUM LACTATE 12% LOTION APPLY MODERATE AMOUNT ACTIVE TOPICALLY ONCE DAILY FOR DRY IRRITATED SKIN 2) CARBOXYMETHYLCELLULOSE NA 0.5% OPH SOLN INSTILL 1 ACTIVE DROP INTO EACH EYE TWICE DAILY NEEDED FOR DRYNESS 3) DICLOFENAC NA 1% TOP GEL APPLY 2 GRAMS TOPICALLY FOUR ACTIVE TIMES A DAY FOR OSTEOARTHRITIS - USE DOSING CARD PROVIDED IN BOX APPLY TO HANDS 4) FERROUS SULFATE 325MG TAB TAKE ONE TABLET BY MOUTH ACTIVE ONCE DAILY TO SUPPLEMENT IRON 5) FLUTICASONE PROP 50MCG 120D NASAL INHL INSTILL 1 ACTIVE SPRAY INTO EACH NOSTRIL TWICE DAILY FOR NASAL IRRITATION/INFLAMMATION 6) HYLAN G-F20 48MG/6ML INJ SYRINGE 6ML INJECT 48MG/6ML HOLD INTRA-ARTICULAR NEEDED DIRECTED BY PROVIDER 7) LATANOPROST 0.005% OPH SOLN INSTILL 1 DROP INTO EACH ACTIVE EYE AT BEDTIME FOR INCREASED PRESSURE IN THE EYE 8) LISINOPRIL 10MG TAB TAKE ONE TABLET BY MOUTH ONCE ACTIVE DAILY TO CONTROL BLOOD PRESSURE 9) LUBRICATING (PF) OPH OINT APPLY THIN RIBBON INTO EACH ACTIVE EYE AT BEDTIME 10) METOPROLOL TARTRATE 50MG TAB TAKE ONE TABLET BY MOUTH ACTIVE TWICE DAILY FOR BLOOD PRESSURE/HEART 11) OMEPRAZOLE 20MG EC CAP TAKE ONE CAPSULE BY MOUTH ACTIVE EVERY MORNING 30 MINUTES BEFORE BREAKFAST 12) ROSUVASTATIN CA 40MG TAB TAKE ONE TABLET BY MOUTH ACTIVE ONCE DAILY FOR CHOLESTEROL 13) TAMSULOSIN HCL 0.4MG CAP TAKE ONE CAPSULE BY MOUTH ACTIVE ONCE DAILY 14) TIMOLOL MALEATE 0.5% OPH SOLN INSTILL 1 DROP INTO ACTIVE EACH EYE EVERY MORNING Active Non-VA Medications Status 1) Non-VA ACETAMINOPHEN 325MG TAB 650MG BY MOUTH TWICE ACTIVE DAILY 2) Non-VA ASPIRIN 81MG EC TAB 81MG BY MOUTH DAILY ACTIVE 3) Non-VA MULTIVITAMIN/MINERALS CAP/TAB 1 TABLET BY ACTIVE MOUTH EVERY MORNING 17 Total Medications 97.6 F [36.4 C] (06/02/2023 14:24) 65 (06/02/2023 14:24) 16 (06/02/2023 14:24) 140/70 (06/02/2023 14:24) 0 (06/02/2023 14:24) 63 in [160.0 cm] (03/02/2023 10:05) 215 lb [97.52 kg] (06/02/2023 14:24) BMI: 38.2 Neuro: Alert and oriented times three, grossly nonfocal, nasolabial folds intact. /elizabeth/ Kiara Cash PA-C STAFF PHYSICIAN AMERICAN STUDIES PROFESSOR Signed: 06/02/2023 15:00 06/04/2023 ADDENDUM STATUS: COMPLETED Please call, review lipids and meds, remind them to bring covid documenation to 06/18 podiatry visit, which may be a good time for F2f with you. I added lab order in 2 months as well. /elizabeth/ Kiara Cash PA-C STAFF PHYSICIAN AMERICAN STUDIES PROFESSOR Signed: 06/04/2023 12:29 Receipt Acknowledged By: 06/04/2023 16:30 /shakir YOO PHARMD,JM CLINICAL PHARMACY PRACTITIONER 06/04/2023 ADDENDUM STATUS: COMPLETED Spoke with pt about lipid labs and would like to make an apt to discuss with CPP AMSA please schedule the following CWM/NO/PHARM PACT 3 TEL 06/09/23 @0130 X 30 MINS thank you! /shakir YOO PHARMD,JM CLINICAL PHARMACY PRACTITIONER Signed: 06/04/2023 16:32 Receipt Acknowledged By: * AWAITING SIGNATURE * [facility]
--- OUTSIDE RECORDS SUMMARY | 2024-05-16 14:03 | XMS_ITS | Continuity of Care Document ---
Author Name [facility] Organization [facility] Care Team Providers Care Trade Mark Attorney Name Role Phone [facility] Unavailable Unavailable Problems Combined list of problems from Department of Defense and Veterans Affairs facilities. It does not include entries that were removed or entered in error. 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 Condition [facility] Glaucoma Active Condition [facility] Hematuria (SCT 45310819) Active Condition [facility] HYPERLIPIDEMIA Active Condition [facility] IMPOTENCE, ORGANIC ORIGN Active Condition [facility] Inflamed Seborrheic Keratosis (SCT 21337510) Active Condition [facility] Obesity Active Condition [facility] Obstructive sleep apnea syndrome Active Condition [facility] Primary generalized osteoarthritis Active Condition [facility] Diagnosis: ICD-10-CM I25.10 Athscl heart disease of [place] coronary artery w/o ang pctrs Active Diagnosis [facility] Diagnosis: ICD-10-CM I11.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 Active Diagnosis [facility] Diagnosis: ICD-10-CM G47.30 Sleep apnea, unspecified Active Diagnosis [facility] Diagnosis: ICD-10-CM Z46.0 Encounter for fit/adjst of spectacles and contact lenses Active Diagnosis [facility] Diagnosis: ICD-10-CM M47.816 Spondylosis w/o myelopathy or radiculopathy, lumbar region Active Diagnosis [facility] Diagnosis: ICD-10-CM 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 Diagnosis [facility] Diagnosis: ICD-10-CM K59.00 Constipation, unspecified Active Diagnosis [facility] Diagnosis: ICD-10-CM R19.4 Change in bowel habit Active Diagnosis [facility] Diagnosis: ICD-10-CM 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 Diagnosis [facility] Diagnosis: ICD-10-CM E78.2 Mixed hyperlipidemia Active Diagnosis [facility] Diagnosis: ICD-10-CM M15.0 Primary generalized (osteo)arthritis Active Diagnosis [facility] Diagnosis: ICD-10-CM 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, right eye, severe stage Active Diagnosis [facility] Diagnosis: ICD-10-CM H40.1123 Primary open-angle glaucoma, left eye, severe stage Active Diagnosis [facility] Diagnosis: ICD-10-CM G56.01 Carpal tunnel syndrome, right upper limb Active Diagnosis [facility] Diagnosis: ICD-10-CM E78.5 Hyperlipidemia, unspecified Active Diagnosis [facility] Diagnosis: ICD-10-CM 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 Active Diagnosis [facility] 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 Medication Details Route Status Patient Instructions Prescription Expires Prescription Number Last Dispense Date Ordering Provider Order Date Order Qty Source ACETAMINOPH EN TAB TAKE 1300 BY MOUTH EVERY MORNING AND TAKE 650MG BY MOUTH EVERY EVENING ORAL ACTIVE JESSENIA YOO 2023 [facility] AMMONIUM LACTATE 12% LOTION APPLY MODERATE AMOUNT TOPICALL Y ONCE DAILY FOR DRY IRRITATE D SKIN TOPICA L ACTIVE 01/25/2025 [id number] 4 KIARA ESPARZA 2023 240 [facility] AMMONIUM LACTATE 12% LOTION APPLY MODERATE AMOUNT TOPICALL Y ONCE DAILY FOR DRY IRRITATE D SKIN TOPICA L DISCONT INUED 11/04/2023 [id number] WILLIAN LUNA 2022 240 [facility] ASPIRIN 81MG TAB,EC TAKE ONE TABLET BY MOUTH DAILY ORAL ACTIVE KIARA ESPARZA 2012 [facility] CAPSAICIN 0.025% CREAM,TOP APPLY A THIN LAYER TOPICALL Y TWICE DAILY NEEDED FOR LOCALIZE D PAIN FOR KNEES TOPICA L ACTIVE 01/25/2025 [id number] 4 KIARA ESPARZA 2023 60 [facility] CAPSAICIN 0.025% CREAM,TOP APPLY A THIN LAYER TOPICALL Y TWICE DAILY NEEDED FOR KNEES TOPICA L DISCONT INUED (EDIT) 11/02/2024 [id number] 4 RA LEONILA BERTRAND 2023 60 [facility] CARBOXYMETH YLCELLULOSE NA 0.5% SOLN,OPH INSTILL 1 DROP INTO EACH EYE FOUR TIMES DAILY NEEDED FOR DRYNESS OPHTHA LMIC ACTIVE 06/02/2024 [id number] KIARA ESPARZA 2023 45 [facility] CARBOXYMETH YLCELLULOSE NA 0.5% SOLN,OPH INSTILL 1 DROP INTO EACH EYE TWICE DAILY NEEDED FOR DRYNESS OPHTHA LMIC DISCONT INUED (EDIT) 05/17/2024 [id number] 3 KIARA ESPARZA 2022 15 [facility] DICLOFENAC NA 1% GEL,TOP APPLY 2 GRAMS TOPICALL Y FOUR TIMES A DAY FOR OSTEOART HRITIS - USE DOSING CARD PROVIDED IN BOX APPLY TO HANDS CRISTINE Kerry 01/23/2024 [id number] 4 GAIL HARPER 2022 100 [facility] EYELID CLEANSER,EY E SCRUB PAD USE 1 PAD TOPICALL Y ONCE DAILY BLEPHARI TIS CRISTINE L ACTIVE 02/16/2025 [id number] 4 Davide FREGOSO 2023 90 [facility] FERROUS SO4 325MG TAB TAKE ONE TABLET BY MOUTH ONCE DAILY TO SUPPLEME NT IRON ORAL DISCONT INUED BY PROVIDE R 11/26/2024 [id number] 4 KIARA ESPARZA 2023 100 [facility] FERROUS SO4 325MG TAB TAKE ONE TABLET BY MOUTH ONCE DAILY TO SUPPLEME NT IRON ORAL DISCONT INUED 10/10/2023 [id number] 4 KIARA ESPARZA 2022 100 [facility] FLUTICASONE PROPIONATE 50MCG/SPRAY SOLN,NASAL, 16GM INSTILL 1 SPRAY INTO EACH NOSTRIL TWICE DAILY FOR NASAL IRRITATI ON/INFLA MMATION NASAL DISCONT INUED 03/02/2024 [id number] 3 KIARA ESPARZA 2022 1 [facility] GUAIFENESIN 600MG TAB,SA TAKE ONE TABLET BY MOUTH TWICE DAILY NEEDED FOR COUGH FOLLOW DOSE WITH FULL GLASS OF WATER ORAL DISCONT INUED 03/02/2024 [id number] 3 KIARA ESPARZA 2022 60 [facility] GUAIFENESIN 600MG TAB,SA TAKE ONE TABLET BY MOUTH TWICE DAILY NEEDED FOR COUGH FOLLOW DOSE WITH FULL GLASS OF WATER ORAL 04/25/2023 [id number] PAULETTE CHOWDHURY 2022 60 [facility] HYLAN G-F20 48MG/6ML INJ,SYRINGE ,6ML INJECT 48MG/6ML INTRA-AR TICULAR NEEDED FOR OSTEOART HRITIS OF THE KNEE DIRECTED BY PROVIDER INTRA- ARTICU LAR ACTIVE 02/02/2025 [id number] SEPTEMBERALONDRA P 2023 2 [facility] HYLAN G-F20 48MG/6ML INJ,SYRINGE ,6ML INJECT 48MG/6ML INTRA-AR TICULAR NEEDED DIRECTED BY PROVIDER INTRA- ARTICU LAR 01/16/2024 [id number] 4 SEPTEMBER,ALONDRA VOSS P 2023 2 [facility] HYPROMELLOS E 0.3% GEL,OPH APPLY 1 TO 2 DROPS INTO EACH EYE AT BEDTIME FOR DRY EYE OPHTHA LMIC ACTIVE 02/16/2025 [id number] 4 Davide FREGOSO 2023 40 [facility] LACTULOSE 10GM/15ML SOLN,ORAL TAKE 30 ML (2 TABLESPO ONS) BY MOUTH TWICE DAILY NEEDED FOR CONSTIPA TION ORAL ACTIVE 06/20/2024 [id number] 4 PAULETTE CHOWDHURY 2023 473 [facility] LATANOPROST 0.005% SOLN,OPH INSTILL 1 DROP INTO EACH EYE AT BEDTIME FOR INCREASE D PRESSURE IN THE EYE OPHTHA LMIC ACTIVE 02/16/2025 [id number] 4 Davide FREGOSO 2023 7.5 [facility] LATANOPROST 0.005% SOLN,OPH INSTILL 1 DROP INTO EACH EYE AT BEDTIME FOR INCREASE D PRESSURE IN THE EYE OPHTHA LMIC DISCONT INUED 06/02/2023 [id number] 3 Davide FREGOSO ICHELE 2022 12.5 [facility] LATANOPROST 0.005% SOLN,OPH INSTILL 1 DROP INTO EACH EYE AT BEDTIME FOR INCREASE D PRESSURE IN THE EYE OPHTHA LMIC 10/28/2023 [id number] 4 Davide FREGOSO ICHELE 2023 12.5 [facility] LIDOCAINE 5% PATCH APPLY 1 PATCH TOPICALL Y ONCE DAILY (LEAVE PATCH ON FOR 12 HOURS THEN LEAVE OFF FOR 12 HOURS) CRISTINE L ACTIVE 04/08/2025 [id number] 4 SHAY HARPEREL Kerry 2023 90 [facility] LISINOPRIL 10MG TAB TAKE ONE TABLET BY MOUTH ONCE DAILY TO CONTROL BLOOD PRESSURE ORAL ACTIVE 04/01/2025 [id number] 4 IKARA ESPARZA 2023 90 [facility] LISINOPRIL 10MG TAB TAKE ONE TABLET BY MOUTH ONCE DAILY TO CONTROL BLOOD PRESSURE ORAL DISCONT INUED 03/02/2024 [id number] 4 KIARA ESPARZA 2022 90 [facility] METOPROLOL TARTRATE 50MG TAB TAKE ONE TABLET BY MOUTH TWICE DAILY FOR BLOOD PRESSURE /HEART ORAL ACTIVE 01/25/2025 [id number] 4 KIARA ESPARZA 2023 180 [facility] METOPROLOL TARTRATE 50MG TAB TAKE ONE TABLET BY MOUTH TWICE DAILY FOR BLOOD PRESSURE /HEART ORAL DISCONT INUED 02/01/2024 [id number] 4 KIARA ESPARZA 2022 180 [facility] MINERAL OIL,LIGHT/P ETROLATUM (PF) OINT,OPH APPLY THIN RIBBON INTO EACH EYE AT BEDTIME OPHTHA LMIC 03/04/2024 [id number] 4 KIARA ESPARZA 2022 2 [facility] MULTIVITAMI NS W/MINERALS TAB TAKE ONE TABLET BY MOUTH EVERY MORNING ORAL ACTIVE KIARA ESPARZA 2012 [facility] OMEPRAZOLE 20MG CAP,EC TAKE ONE CAPSULE BY MOUTH EVERY MORNING 30 MINUTES BEFORE BREAKFAS T ORAL ACTIVE 09/28/2024 [id number] 4 KIARA ESPARZA 2023 90 [facility] OMEPRAZOLE 20MG CAP,EC TAKE ONE CAPSULE BY MOUTH EVERY MORNING 30 MINUTES BEFORE BREAKFAS T ORAL DISCONT INUED 10/30/2023 [id number] 4 KIARA ESPARZA 2022 90 [facility] POLYETHYLEN E GLYCOL 3350 PWDR,ORAL TAKE 17 GRAMS(FI LL CAP TO 17GM LINE) BY MOUTH ONCE DAILY FOR CONSTIPA TION [MIX WITH 4 TO 8OZ. OF BEVERAGE ] ORAL ACTIVE 05/10/2025 [id number] 4 KIARA ESPARZA 2023 510 [facility] POLYETHYLEN E GLYCOL 3350 PWDR,ORAL TAKE 17 GRAMS(FI LL CAP TO 17GM LINE) BY MOUTH ONCE DAILY FOR CONSTIPA TION [MIX WITH 4 TO 8OZ. OF BEVERAGE ] ORAL DISCONT INUED 04/21/2024 [id number] PAULETTE CHOWDHURY 2023 510 [facility] ROSUVASTATI N CA 40MG TAB TAKE ONE TABLET BY MOUTH ONCE DAILY FOR CHOLESTE ROL ORAL ACTIVE 09/28/2024 [id number] 4 KIARA ESPARZA 2023 90 [facility] ROSUVASTATI N CA 40MG TAB TAKE ONE TABLET BY MOUTH ONCE DAILY FOR CHOLESTE ROL ORAL DISCONT INUED 10/30/2023 [id number] KIARA ESPARZA 2022 90 [facility] TAMSULOSIN HCL 0.4MG CAP TAKE ONE CAPSULE BY MOUTH ONCE DAILY FOR ENLARGED PROSTATE ORAL ACTIVE 04/22/2025 [id number] 4 KIARA ESPARZA 2023 90 [facility] TAMSULOSIN HCL 0.4MG CAP TAKE ONE CAPSULE BY MOUTH ONCE DAILY FOR ENLARGED PROSTATE ORAL DISCONT INUED 06/02/2024 [id number] 4 KIARA ESPARZA 2023 90 [facility] TAMSULOSIN HCL 0.4MG CAP TAKE ONE CAPSULE BY MOUTH ONCE DAILY ORAL DISCONT INUED (EDIT) 03/05/2024 [id number] 3 KIARA ESPARZA 2022 30 [facility] TIMOLOL MALEATE 0.5% SOLN,OPH INSTILL 1 DROP INTO EACH EYE EVERY MORNING OPHTHA LMIC DISCONT INUED 04/29/2023 [id number] 3 Davide FREGOSO SALLIECLIVE 2021 15 [facility] TIMOLOL MALEATE 0.5% SOLN,OPH INSTILL 1 DROP INTO EACH EYE EVERY MORNING OPHTHA LMIC 03/04/2024 [id number] 4 Davide FREGOSO ICHCLIVE 2022 15 [facility] Allergies, Adverse Reactions, Alerts Combined list of allergies from Department of Defense and Veterans Affairs facilities. It does not include entries that were removed or entered in error. Substance Category Reaction Severity Reaction type Status Date Reported Comments Source CORTISONE Propensity to adverse reactions to drug (finding) Raised intraocular pressure active 9 [facility] NAPROXEN Propensity to adverse reactions to drug (finding) Gastric ulcer active 9 [facility] PENICILLIN Propensity to adverse reactions to drug (finding) Itching active 3 [facility] Immunizations Combined list of available immunizations from the Department of Defense and Veterans Affairs facilities. Immunization Series Date Given Administered By Site Reaction Lot Number CVX Code Drug Graphic Artist Status Comments Source COVID-19 (MODERNA), MRNA, LNP-S, PF, 50 MCG/0.5 ML (AGES 12+ YEARS) 6 [facility]23 [facility] INFLUENZA, UNSPECIFIED FORMULATION 2023 88 complet ed [facility] TDAP 2023 N[place]EL HOUSTON E LEFT DELTO ID [id number] 115 [facility] ed [facility] INFLUENZA, HIGH-DOSE, QUADRIVALENT 2022 EFFIE CHEN ER M LEFT DELTO ID [id number] 197 complet ed [facility] RSV, BIVALENT, PROTEIN SUBUNIT RSVPREF, DILUENT RECONSTITUTED , 0.5 ML, PF 2022 EFFIE CHEN ER M RIGHT DELTO ID [id number] 305 complet ed [id number] [facility] COVID-19 (MODERNA), MRNA, LNP-S, BIVALENT BOOSTER, PF, 50 MCG/0.5 ML OR 25MCG/0.25 ML DOSE 1 2022 ALLEN RUIZ LEFT DELTO ID [id number] 229 complet ed [facility] INFLUENZA, UNSPECIFIED FORMULATION 2021 88 complet ed [facility] COVID-19 (MODERNA), MRNA, LNP-S, PF, 100 MCG/0.5ML DOSE OR 50 MCG/0.25ML DOSE 3 2021 207 complet ed [facility] COVID-19 (MODERNA), MRNA, LNP-S, PF, 100 MCG OR 50 MCG DOSE 3 2020 207 complet ed MOD; [id number]; 2 [facility] INFLUENZA VACCINE, QUADRIVALENT, ADJUVANTED 2020 205 complet ed [facility] COVID-19 (MODERNA), MRNA, LNP-S, PF, 100 MCG/0.5 ML DOSE 2 2020 207 complet ed MOD; [id number]; 1 [facility] COVID-19 (MODERNA), MRNA, LNP-S, PF, 100 MCG/0.5 ML DOSE 1 2020 207 complet ed MOD; [id number]; 1 [facility] INFLUENZA, HIGH-DOSE, QUADRIVALENT 2019 197 complet ed [facility] ZOSTER RECOMBINANT 2 2018 187 complet ed [facility] INFLUENZA, HIGH DOSE SEASONAL 2018 135 complet ed [facility] Administe red by: JOEL PETERSEN (LRY=[phone]). Partner 6 Lot#: [id number] Mfr: Sanofi Pasteur; Dosage: 0.5 [facility] INFLUENZA, SEASONAL, INJECTABLE 2018 141 complet ed [email or web address] ZOSTER RECOMBINANT 2018 187 complet ed Partner: [facility]. Administe red by: JOEL PETERSEN (CCO=[phone]). Partner 6 Lot#: [id number] Mfr: Xeebelline; Dosage: 1 [facility] INFLUENZA, SEASONAL, INJECTABLE 2017 141 complet ed [facility] FLU,3 YRS (HISTORICAL) 2016 88 complet ed Site: Left Deltoid [facility] FLU,3 YRS (HISTORICAL) 2015 88 complet ed [facility] PNEUMOCOCCAL CONJUGATE PCV 13 2014 133 complet ed [facility] DTAP, UNSPECIFIED FORMULATION 2013 107 complet ed Site: Right Deltoid [facility] PNEUMOCOCCAL POLYSACCHARID E [id number] 2013 33 complet ed [facility] PNEUMOCOCCAL, UNSPECIFIED FORMULATION 2013 109 complet ed [facility] FLU,3 YRS (HISTORICAL) 2012 88 complet ed [facility] FLU,3 YRS (HISTORICAL) 2011 88 complet ed Site: Left Deltoid [facility] FLU,3 YRS (HISTORICAL) 2011 88 complet ed Administe red by Gera Arzate RN [facility] ZOSTER (SHINGLES) (HISTORICAL) 2011 121 complet ed [facility] ZOSTER (HISTORICAL) 2011 121 complet ed [facility] Results Combined list of recent chemistry, hematology and other laboratory results from Department of Defense and Veterans Affairs, ranging from 15 months to all on record, depending upon the facility. Order Name Results Value Reference Range Date Interpretation Specimen Comments Source HEMOGLOBI N A1C PANEL HEMOGLOBIN A1C/HEMOGLO BIN.TOTAL IN BLOOD BY HPLC 5.6 4.0 - 5.6 05/02 Specimen Type: BLOOD Comment: Values obtained from A1C measurement s can vary. For atypical A1C assays, a reported value of 7.0 could actually be between 6.72 and 7.28 if measured by a reference method. A reported value of 9.0 could actually be between 8.73 and 9.27. Ref: [email or web address]://[email or web address] ngsp.org/[place] Pdata.asp Ordering Provider: Promise ESPARZA Report Released Date/Time: Apr 27, 2024 11:20 AM Reporting Lab: [facility] [place] [facility] [address] [facility] [address] Performing Lab: [facility] [place] [facility] [address] [facility] [address] [facility] [facility] LIVER FUNCTION PROTEIN [MASS/VOLUM E] IN SERUM OR PLASMA 6.2 g/dL 6.0 - 8.3 05/02 Specimen Type: SERUM Comment: Hemolysis present analysis cannot be performed. Hemolysis present may falsly elevate Potassium Total and Direct Bili, Iron, AST, %Fe. Ordering Provider: Promise ESPARZA Report Released Date/Time: Apr 27, 2024 11:20 AM Reporting Lab: [facility] [address] [facility] [address] Performing Lab: [facility] [address] [facility] LIVER FUNCTION ALBUMIN [MASS/VOLUM E] IN SERUM OR PLASMA 3.8 g/dL 3.5 - 5.0 05/02 Specimen Type: SERUM Comment: Hemolysis present analysis cannot be performed. Hemolysis present may falsly elevate Potassium Total and Direct Bili, Iron, AST, %Fe. Ordering Provider: Promise ESPARZA Report Released Date/Time: Apr 27, 2024 11:20 AM Reporting Lab: [facility]N [address] [address] Performing Lab: [facility]USN [address] [address] [facility] LIVER FUNCTION ALKALINE PHOSPHATASE [ENZYMATIC ACTIVITY/VO LUME] IN SERUM OR PLASMA 35 U/L 40 - 150 05/02 L Specimen Type: SERUM Comment: Hemolysis present analysis cannot be performed. Hemolysis present may falsly elevate Potassium Total and Direct Bili, Iron, AST, %Fe. Ordering Provider: Promise ESPARZA Report Released Date/Time: Apr 27, 2024 11:20 AM Reporting Lab: [facility] [address] Performing Lab: [facility]N [facility] [address] [facility]N [facility] LIVER FUNCTION ASPARTATE AMINOTRANSF ERASE [ENZYMATIC ACTIVITY/VO LUME] IN SERUM OR PLASMA 22 U/L 5 - 34 05/02 Specimen Type: SERUM Comment: Hemolysis present analysis cannot be performed. Hemolysis present may falsly elevate Potassium Total and Direct Bili, Iron, AST, %Fe. Ordering Provider: Promise ESPARZA Report Released Date/Time: Apr 27, 2024 11:20 AM Reporting Lab: [facility] [place] [facility] [address] [facility] [address] Performing Lab: [place] [facility]ITAL[facility]ETS [address] [address] [facility]N [facility] LIVER FUNCTION ALANINE AMINOTRANSF ERASE [ENZYMATIC ACTIVITY/VO LUME] IN SERUM OR PLASMA 12 U/L 05/02 Specimen Type: SERUM Comment: Hemolysis present analysis cannot be performed. Hemolysis present may falsly elevate Potassium Total and Direct Bili, Iron, AST, %Fe. Ordering Provider: Promise ESPARZA Report Released Date/Time: Apr 27, 2024 11:20 AM Reporting Lab: [facility] [address] Performing Lab: [facility]N [facility] [address] [facility]RL [facility] LIVER FUNCTION BILIRUBIN.T OTAL [MASS/VOLUM E] IN SERUM OR PLASMA commen tmg/dL 0.2 - 1.2 05/02 Specimen Type: SERUM Comment: Hemolysis present analysis cannot be performed. Hemolysis present may falsly elevate Potassium Total and Direct Bili, Iron, AST, %Fe. Ordering Provider: Promise ESPARZA Report Released Date/Time: Apr 27, 2024 11:20 AM Reporting Lab: [facility] TRN [address] [address] Performing Lab: [facility] [address] [facility] BASIC METABOLIC PANEL (fasting) UREA NITROGEN [MASS/VOLUM E] IN SERUM OR PLASMA 24 mg/dL 7 - 25 05/02 Specimen Type: SERUM Comment: Hemolysis present analysis cannot be performed. Hemolysis present may falsly elevate Potassium Total and Direct Bili, Iron, AST, %Fe. Ordering Provider: Promise ESPARZA Report Released Date/Time: Apr 27, 2024 11:20 AM Reporting Lab: [facility] [address] Performing Lab: [facility] [address] [facility] [address] [facility] BASIC METABOLIC PANEL (fasting) GLUCOSE [MASS/VOLUM E] IN SERUM OR PLASMA 93 mg/dL 65 - 100 05/02 Specimen Type: SERUM Comment: Hemolysis present analysis cannot be performed. Hemolysis present may falsly elevate Potassium Total and Direct Bili, Iron, AST, %Fe. Ordering Provider: Promise ESPARZA Report Released Date/Time: Apr 27, 2024 11:20 AM Reporting Lab: [facility] [address] [facility] [address] Performing Lab: [facility] [address] [address] [facility] BASIC METABOLIC PANEL (fasting) SODIUM [MOLES/VOLU ME] IN SERUM OR PLASMA 140 mmol/L 135 - 145 05/02 Specimen Type: SERUM Comment: Hemolysis present analysis cannot be performed. Hemolysis present may falsly elevate Potassium Total and Direct Bili, Iron, AST, %Fe. Ordering Provider: Promise ESPARZA Report Released Date/Time: Apr 27, 2024 11:20 AM Reporting Lab: [facility] [address] [facility] [id number] Performing Lab: [facility] [address] [address] [facility] BASIC METABOLIC PANEL (fasting) POTASSIUM [MOLES/VOLU ME] IN SERUM OR PLASMA 5.1 mmol/L 3.5 - 5.0 05/02 H Specimen Type: SERUM Comment: Hemolysis present analysis cannot be performed. Hemolysis present may falsly elevate Potassium Total and Direct Bili, Iron, AST, %Fe. Ordering Provider: Promise ESPARZA Report Released Date/Time: Apr 27, 2024 11:20 AM Reporting Lab: [facility] [address] [facility] [address] Performing Lab: [id number] [address] [facility] BASIC METABOLIC PANEL (fasting) CHLORIDE [MOLES/VOLU ME] IN SERUM OR PLASMA 112 mmol/L 100 - 110 05/02 H Specimen Type: SERUM Comment: Hemolysis present analysis cannot be performed. Hemolysis present may falsly elevate Potassium Total and Direct Bili, Iron, AST, %Fe. Ordering Provider: Promise ESPARZA Report Released Date/Time: Apr 27, 2024 11:20 AM Reporting Lab: [address] [address] Performing Lab: [address] [address] [facility] BASIC METABOLIC PANEL (fasting) CARBON DIOXIDE, TOTAL [MOLES/VOLU ME] IN SERUM OR PLASMA 19 meq/L 20 - 30 05/02 L Specimen Type: SERUM Comment: Hemolysis present analysis cannot be performed. Hemolysis present may falsly elevate Potassium Total and Direct Bili, Iron, AST, %Fe. Ordering Provider: Promise ESPARZA Report Released Date/Time: Apr 27, 2024 11:20 AM Reporting Lab: [address] [address] Performing Lab: [address] [address] [facility] BASIC METABOLIC PANEL (fasting) CREATININE [MASS/VOLUM E] IN SERUM OR PLASMA 0.87 mg/dL 0.50 - 1.40 05/02 Specimen Type: SERUM Comment: Hemolysis present analysis cannot be performed. Hemolysis present may falsly elevate Potassium Total and Direct Bili, Iron, AST, %Fe. Ordering Provider: Promise ESPARZA Report Released Date/Time: Apr 27, 2024 11:20 AM Reporting Lab: [address] [address] Performing Lab: [address] [address] [facility] BASIC METABOLIC PANEL (fasting) GLOMERULAR FILTRATION RATE/1.73 SQ M.PREDICTED [VOLUME RATE/AREA] IN SERUM, PLASMA OR BLOOD BY CREATININE- BASED FORMULA (CKD-EPI 2020) 84 mL/min 60 05/02 Specimen Type: SERUM Comment: Hemolysis present analysis cannot be performed. Hemolysis present may falsly elevate Potassium Total and Direct Bili, Iron, AST, %Fe. Ordering Provider: Promise ESPARZA Report Released Date/Time: Apr 27, 2024 11:20 AM Reporting [facility]: [facility] [address] [facility] [address] Performing [facility]: [facility] [address] [address] [facility] LIPID PANEL FASTING CHOLESTEROL [MASS/VOLUM E] IN SERUM OR PLASMA 85 mg/dL 05/02 Specimen Type: SERUM Comment: Hemolysis present analysis cannot be performed. Hemolysis present may falsly elevate Potassium Total and Direct Bili, Iron, AST, %Fe. Ordering Provider: Promise ESPARZA Report Released Date/Time: Apr 27, 2024 11:20 AM Reporting Lab: [facility] [address] [facility] [address] Performing [facility]: [facility] [address] [address] [facility] LIPID PANEL FASTING TRIGLYCERID E [MASS/VOLUM E] IN SERUM OR PLASMA 130 mg/dL 0 - 150 05/02 Specimen Type: SERUM Comment: Hemolysis present analysis cannot be performed. Hemolysis present may falsly elevate Potassium Total and Direct Bili, Iron, AST, %Fe. Ordering Provider: Promise ESPARZA Report Released Date/Time: Apr 27, 2024 11:20 AM Reporting Lab: [facility] [address] [facility] [address] Performing Lab: [address] [address] [facility] LIPID PANEL FASTING CHOLESTEROL IN LDL [MASS/VOLUM E] IN SERUM OR PLASMA BY CALCULATION 29 mg/dL 0 - 129 05/02 Specimen Type: SERUM Comment: Hemolysis present analysis cannot be performed. Hemolysis present may falsly elevate Potassium Total and Direct Bili, Iron, AST, %Fe. Ordering Provider: Promise ESPARZA Report Released Date/Time: Apr 27, 2024 11:20 AM Reporting Lab: [facility] [address] [facility] [address] Performing Lab: [facility] [address] [facility] [address] [facility] LIPID PANEL FASTING CHOLESTEROL .TOTAL/CHOL ESTEROL IN HDL [MASS RATIO] IN SERUM OR PLASMA 2.8 05/02 Specimen Type: SERUM Comment: Hemolysis present analysis cannot be performed. Hemolysis present may falsly elevate Potassium Total and Direct Bili, Iron, AST, %Fe. Ordering Provider: Promise ESPARZA Report Released Date/Time: Apr 27, 2024 11:20 AM Reporting Lab: [facility] [address] [facility] [address] Performing Lab: [facility] [address] [facility] [address] [facility] LIPID PANEL FASTING CHOLESTEROL IN HDL [MASS/VOLUM E] IN SERUM OR PLASMA 30 mg/dL 40 - 60 05/02 L Specimen Type: SERUM Comment: Hemolysis present analysis cannot be performed. Hemolysis present may falsly elevate Potassium Total and Direct Bili, Iron, AST, %Fe. Ordering Provider: Promise ESPARZA Report Released Date/Time: Apr 27, 2024 11:20 AM Reporting Lab: [facility] [address] [facility] [address] Performing Lab: [facility] [address] [facility] [address] [facility] VITAMIN D (25-OH) 25-HYDROXYV ITAMIN D3 [MASS/VOLUM E] IN SERUM OR PLASMA 40 ng/mL 20 - 50 01/17 Specimen Type: SERUM No comment entered. Ordering Provider: Promise ESPARZA Report Released Date/Time: Sep 28, 2023 11:20 AM Reporting Lab: [facility] [facility] [address] [facility] [address] Performing Lab: [facility] [place] [facility] [address] [facility] [address] [facility] LIPID PANEL FASTING CHOLESTEROL [MASS/VOLUM E] IN SERUM OR PLASMA 107 mg/dL 01/17 Specimen Type: SERUM No comment entered. Ordering Provider: Promise ESPARZA Report Released Date/Time: Sep 28, 2023 11:20 AM Reporting Lab: [facility] [place] [facility] [address] [facility] [address] Performing Lab: [facility] [place] [facility] [address] [facility] [address] [facility] LIPID PANEL FASTING TRIGLYCERID E [MASS/VOLUM E] IN SERUM OR PLASMA 225 mg/dL 0 - 150 01/17 H Specimen Type: SERUM No comment entered. Ordering Provider: Promise ESPARZA Report Released Date/Time: Sep 28, 2023 11:20 AM Reporting Lab: [facility] [place] [facility] [address] [facility] [address] Performing Lab: [facility] [place] [facility] [address] [facility] [address] [facility] LIPID PANEL FASTING CHOLESTEROL IN LDL [MASS/VOLUM E] IN SERUM OR PLASMA BY CALCULATION 33 mg/dL 0 - 129 01/17 Specimen Type: SERUM No comment entered. Ordering Provider: Promise ESPARZA Report Released Date/Time: Sep 28, 2023 11:20 AM Reporting Lab: [facility] [place] [facility] [address] [facility] [address] Performing Lab: [facility] [place] [facility] [address] [facility] [address] [facility] LIPID PANEL FASTING CHOLESTEROL .TOTAL/CHOL ESTEROL IN HDL [MASS RATIO] IN SERUM OR PLASMA 3.7 01/17 Specimen Type: SERUM No comment entered. Ordering Provider: Promise ESPARZA Report Released Date/Time: Sep 28, 2023 11:20 AM Reporting Lab: [facility] [place] [facility] [address] [facility] [address] Performing Lab: [facility] [address] [facility] [address] [facility] [facility] LIPID PANEL FASTING CHOLESTEROL IN HDL [MASS/VOLUM E] IN SERUM OR PLASMA 29 mg/dL 40 - 60 01/17 L Specimen Type: SERUM No comment entered. Ordering Provider: Promise ESPARZA Report Released Date/Time: Sep 28, 2023 11:20 AM Reporting Lab: [facility] [address] Performing Lab: [facility] [place] [facility] [address] [facility] [address] [facility] BASIC METABOLIC PANEL (fasting) UREA NITROGEN [MASS/VOLUM E] IN SERUM OR PLASMA 17 mg/dL 7 - 25 01/17 Specimen Type: SERUM No comment entered. Ordering Provider: Promise ESPARZA Report Released Date/Time: Sep 28, 2023 11:20 AM Reporting Lab: [facility] [place] [facility] [address] [facility] [address] Performing Lab: [facility] [place] [facility] [address] [facility] [address] [facility] [place] [facility] BASIC METABOLIC PANEL (fasting) GLUCOSE [MASS/VOLUM E] IN SERUM OR PLASMA 93 mg/dL 65 - 100 01/17 Specimen Type: SERUM No comment entered. Ordering Provider: Promise ESPAZRA Report Released Date/Time: Sep 28, 2023 11:20 AM Reporting Lab: [facility] [place] [facility] [address] [facility] [address] Performing Lab: [facility] [place] [facility] [address] [facility] [address] [facility] [place] [facility] BASIC METABOLIC PANEL (fasting) SODIUM [MOLES/VOLU ME] IN SERUM OR PLASMA 141 mmol/L 135 - 145 01/17 Specimen Type: SERUM No comment entered. Ordering Provider: Promise ESPARZA Report Released Date/Time: Sep 28, 2023 11:20 AM Reporting Lab: [facility] [place] [facility] [address] [facility] [address] Performing Lab: [facility] [place] [facility] [address] [facility] [address] [facility] [place] [facility] BASIC METABOLIC PANEL (fasting) POTASSIUM [MOLES/VOLU ME] IN SERUM OR PLASMA 4.7 mmol/L 3.5 - 5.0 01/17 Specimen Type: SERUM No comment entered. Ordering Provider: Promise ESPARZA Report Released Date/Time: Sep 28, 2023 11:20 AM Reporting Lab: [facility] [place] [facility] [address] [facility] [address] Performing Lab: [facility] [place] [facility] [address] [facility] [address] [facility] [place] [facility] BASIC METABOLIC PANEL (fasting) CHLORIDE [MOLES/VOLU ME] IN SERUM OR PLASMA 109 mmol/L 100 - 110 01/17 Specimen Type: SERUM No comment entered. Ordering Provider: Promise ESPARZA Report Released Date/Time: Sep 28, 2023 11:20 AM Reporting Lab: [facility] [place] [facility] [address] [facility] [address] Performing Lab: [facility] [place] [facility] [address] [facility] [address] [facility] [place] [facility] BASIC METABOLIC PANEL (fasting) CARBON DIOXIDE, TOTAL [MOLES/VOLU ME] IN SERUM OR PLASMA 25 meq/L 20 - 30 01/17 Specimen Type: SERUM No comment entered. Ordering Provider: Promise ESPARZA Report Released Date/Time: Sep 28, 2023 11:20 AM Reporting Lab: [facility] [place] [facility] [address] [facility] [address] Performing Lab: [facility] [place] [facility] [address] [facility] [address] [facility] [place] [facility] BASIC METABOLIC PANEL (fasting) CREATININE [MASS/VOLUM E] IN SERUM OR PLASMA 0.86 mg/dL 0.50 - 1.40 01/17 Specimen Type: SERUM No comment entered. Ordering Provider: Promise ESPARZA Report Released Date/Time: Sep 28, 2023 11:20 AM Reporting Lab: [facility] [place] [facility] [address] [facility] [address] Performing Lab: [facility] [place] [facility] [address] [facility] [address] [facility] [place] [facility] BASIC METABOLIC PANEL (fasting) GLOMERULAR FILTRATION RATE/1.73 SQ M.PREDICTED [VOLUME RATE/AREA] IN SERUM, PLASMA OR BLOOD BY CREATININE- BASED FORMULA (CKD-EPI 2020) 84 mL/min 60 01/17 Specimen Type: SERUM No comment entered. Ordering Provider: Promise ESPARZA Report Released Date/Time: Sep 28, 2023 11:20 AM Reporting Lab: [facility] [place] [facility] [address] [facility] [address] Performing Lab: [facility] [place] [facility] [address] [facility] [address] [facility] [place] [facility] LIVER FUNCTION PROTEIN [MASS/VOLUM E] IN SERUM OR PLASMA 6.1 g/dL 6.0 - 8.3 01/17 Specimen Type: SERUM No comment entered. Ordering Provider: Promise ESPARZA Report Released Date/Time: Sep 28, 2023 11:20 AM Reporting Lab: [facility] [place] [facility] [address] [facility] [address] Performing Lab: [facility] [place] [facility] [address] [facility] [address] [facility] [place] [facility] LIVER FUNCTION ALBUMIN [MASS/VOLUM E] IN SERUM OR PLASMA 3.9 g/dL 3.5 - 5.0 01/17 Specimen Type: SERUM No comment entered. Ordering Provider: Promise ESPARZA Report Released Date/Time: Sep 28, 2023 11:20 AM Reporting Lab: [facility] [place] [facility] [address] [facility] [address] Performing Lab: [facility] [place] [facility] [address] [facility] [address] [facility] LIVER FUNCTION ALKALINE PHOSPHATASE [ENZYMATIC ACTIVITY/VO LUME] IN SERUM OR PLASMA 44 U/L 40 - 150 01/17 Specimen Type: SERUM No comment entered. Ordering Provider: Promise ESPARZA Report Released Date/Time: Sep 28, 2023 11:20 AM Reporting Lab: [facility] [place] [address] [address] Performing Lab: [facility] [place] [facility] [address] [facility] [address] [facility] [facility] LIVER FUNCTION ASPARTATE AMINOTRANSF ERASE [ENZYMATIC ACTIVITY/VO LUME] IN SERUM OR PLASMA 14 U/L 5 - 34 01/17 Specimen Type: SERUM No comment entered. Ordering Provider: Promise ESPARZA Report Released Date/Time: Sep 28, 2023 11:20 AM Reporting Lab: [facility] [place] [facility] [address] [facility] [address] Performing Lab: [facility] [place] [facility] [address] [facility] [address] [facility] [facility] LIVER FUNCTION ALANINE AMINOTRANSF ERASE [ENZYMATIC ACTIVITY/VO LUME] IN SERUM OR PLASMA 14 U/L 01/17 Specimen Type: SERUM No comment entered. Ordering Provider: Promise ESPARZA Report Released Date/Time: Sep 28, 2023 11:20 AM Reporting Lab: [facility] [place] [facility] [address] [facility] [address] Performing Lab: [facility] [place] [facility] [address] [facility] [address] [facility] [place] [facility] LIVER FUNCTION BILIRUBIN.T OTAL [MASS/VOLUM E] IN SERUM OR PLASMA 0.4 mg/dL 0.2 - 1.2 01/17 Specimen Type: SERUM No comment entered. Ordering Provider: Promise ESPARZA Report Released Date/Time: Sep 28, 2023 11:20 AM Reporting Lab: [facility] [place] [facility] [address] [facility] [address] Performing Lab: [facility] [place] [address] [address] [facility] [place] [facility] HEMOGLOBI N A1C PANEL HEMOGLOBIN A1C/HEMOGLO BIN.TOTAL IN BLOOD BY HPLC 5.5 4.0 - 5.6 09/20 Specimen Type: BLOOD Comment: Values obtained from A1C measurement s can vary. For atypical A1C assays, a reported value of 7.0 could actually be between 6.72 and 7.28 if measured by a reference method. A reported value of 9.0 could actually be between 8.73 and 9.27. Ref: [email or web address]://[email or web address] ngsp.org/[place] Pdata.asp Ordering Provider: Promise ESPARZA Report Released Date/Time: Jun 02, 2023 02:59 PM Reporting Lab: [facility] [place] [address] [address] Performing Lab: [facility] [place] [address] [address] [facility] LIPID PANEL FASTING CHOLESTEROL [MASS/VOLUM E] IN SERUM OR PLASMA 109 mg/dL 09/20 Specimen Type: SERUM No comment entered. Ordering Provider: Promise ESPARZA Report Released Date/Time: Jun 02, 2023 02:59 PM Reporting Lab: [facility] [place] [facility] [address] [facility] [address] Performing Lab: [facility] [place] [address] [address] [facility] LIPID PANEL FASTING TRIGLYCERID E [MASS/VOLUM E] IN SERUM OR PLASMA 202 mg/dL 0 - 150 09/20 H Specimen Type: SERUM No comment entered. Ordering Provider: Promise ESPARZA Report Released Date/Time: Jun 02, 2023 02:59 PM Reporting Lab: [facility] [address] [facility] [address] Performing Lab: [facility] [address] [facility] [address] [facility] LIPID PANEL FASTING CHOLESTEROL IN LDL [MASS/VOLUM E] IN SERUM OR PLASMA BY CALCULATION 36 mg/dL 0 - 129 09/20 Specimen Type: SERUM No comment entered. Ordering Provider: Promise ESPARZA Report Released Date/Time: Jun 02, 2023 02:59 PM Reporting Lab: [facility] [address] Performing Lab: [facility] [address] [facility] LIPID PANEL FASTING CHOLESTEROL .TOTAL/CHOL ESTEROL IN HDL [MASS RATIO] IN SERUM OR PLASMA 3.3 09/20 Specimen Type: SERUM No comment entered. Ordering Provider: Promise ESPARZA Report Released Date/Time: Jun 02, 2023 02:59 PM Reporting Lab: [facility] [place] [address] [address] Performing Lab: [place] [facility] [address] [address] [facility] LIPID PANEL FASTING CHOLESTEROL IN HDL [MASS/VOLUM E] IN SERUM OR PLASMA 33 mg/dL 40 - 60 09/20 L Specimen Type: SERUM No comment entered. Ordering Provider: Promise ESPARZA Report Released Date/Time: Jun 02, 2023 02:59 PM Reporting Lab: [facility] [address] Performing Lab: [facility] [address] [facility] [address] [facility] Vital Signs Combined list of inpatient and outpatient Vital Signs from Department of Defense and Veterans Affairs, ranging from 12 months to all on record, depending upon the facility. Vital Sign Value Date Comments Source SYSTOLIC BLOOD PRESSURE 128 05/09/20 24 10:20:19 [facility] DIASTOLIC BLOOD PRESSURE 62 024 10:20:19 [facility] PULSE OXIMETRY 98 05/09/2024 10:20:19 [facility] WEIGHT 204.9 05/09/2024 10:20:19 [facility] BMI 33kg/m2 05/09/2024 10:20:19 [facility] PAIN 5 05/09/2024 10:20:19 [facility] HEIGHT 66 05/09/2024 10:20:19 [facility] PULSE 56 05/09/2024 10:20:19 [facility] RESPIRATION 16 05/09/2024 10:20:19 [facility] SYSTOLIC BLOOD PRESSURE 130 04/07/20 24 08:06:33 [facility] DIASTOLIC BLOOD PRESSURE 60 024 08:06:33 [facility] PULSE OXIMETRY 95 04/07/2024 08:06:33 [facility] PAIN 3 04/07/2024 08:06:33 [facility] PULSE 60 04/07/2024 08:06:33 [facility] RESPIRATION 18 04/07/2024 08:06:33 [facility] SYSTOLIC BLOOD PRESSURE 159 03/22/20 24 10:28:33 [facility] DIASTOLIC BLOOD PRESSURE 66 024 10:28:33 [facility] PULSE OXIMETRY 94 03/22/2024 10:28:33 [facility] PAIN 1 03/22/2024 10:28:33 [facility] TEMPERATURE 97.6 03/22/2024 10:28:33 [facility] PULSE 58 03/22/2024 10:28:33 [facility] RESPIRATION 18 03/22/2024 10:28:33 [facility] SYSTOLIC BLOOD PRESSURE 132 02/05/20 10:51:24 [facility] DIASTOLIC BLOOD PRESSURE 78 024 10:51:24 [facility] PULSE OXIMETRY 95 02/05/2024 10:51:24 [facility] WEIGHT 212.2 02/05/2024 10:51:24 [facility] BMI 38kg/m2 02/05/2024 10:51:24 [facility] PAIN 5 02/05/2024 10:51:24 [facility] TEMPERATURE 97 02/05/2024 10:51:24 [facility] PULSE 68 02/05/2024 10:51:24 [facility] RESPIRATION 18 02/05/2024 10:51:24 [facility] SYSTOLIC BLOOD PRESSURE 146 01/25/20 24 10:28:06 [facility] DIASTOLIC BLOOD PRESSURE 70 024 10:28:06 [facility] PULSE OXIMETRY 93 01/25/2024 10:28:06 [facility] WEIGHT 219 01/25/2024 10:28:06 [facility] BMI 39kg/m2 01/25/2024 10:28:06 [facility] PAIN 6 01/25/2024 10:28:06 [facility] TEMPERATURE 97.7 01/25/2024 10:28:06 [facility] PULSE 57 01/25/2024 10:28:06 [facility] RESPIRATION 16 01/25/2024 10:28:06 [facility] Encounters Combined list of: 1) Encounters from Department of Veterans Affairs facilities going back up to thelast 18 months. 2) Encounters from the Department of Defense facilities going back up to 280 months. 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, bilater al upper limbs<b r/> LEELEE STEINBERG LIE E 11/21 [facility] En[facility] [id number] 11/21 [facility] En[facility] [id number] 11/21 [facility] [id number] 11/27 [facility] En[facility] [id number] 11/28 [facility] OFFICE O/P NEW LOW 30-44 MIN [id number] Diagnos is: ICD-10- CM 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 , 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<br/ > GALLITOAUSTENKIARA TEE 12/03 [facility] En[facility] [id number] 12/03 [facility] [id number] 12/03 [facility] [id number] 12/18 [facility] EYE EXAM ESTABLISH PATIENT [id number] Diagnos is: ICD-10- CM 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<br/ > ABIMBOLA FREGOSO 12/18 [facility] En[facility] [id number] 12/19 [facility] FIT SPECTACLES MULTIFOCAL [id number] Diagnos is: ICD-10- CM Z46.0 Encount er for fit/adj st of spectac les and contact lenses< br/> MOLLY CAMACHO A 12/19 [facility] En[facility] [id number] 12/24 [facility] OFFICE O/P EST SF 10-19 MIN [id number] Diagnos is: ICD-10- CM 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
ZAID FLORES 02/04 [facility] Outpatient Encounter [id number] 02/06 [facility] OFFICE O/P EST MOD 30-39 MIN [id number] Diagnos is: ICD-10- CM M15.0 Primary general ized (osteo) arthrit is
AFTAB TEMPLE P 02/06 [facility] REPAIR & ADJUST SPECTACLES [id number] Diagnos is: ICD-10- CM Z46.0 Encount er for fit/adj st of spectac les and contact lenses< br/> ISELA DELEON 02/23 [facility] Out[facility] Encounter [id number] 02/27 [facility] Out[facility] Encounter [id number] 02/27 [facility] OFFICE O/P EST LOW 20-29 MIN [id number] Diagnos is: ICD-10- CM I11.9 Hyperte nsive heart disease without heart failure
KIARA ESPARZA 03/02 [facility] Out[facility] Encounter [id number] 03/03 [facility] Out[facility] Encounter [id number] 03/03 [facility] Out[facility] Encounter [id number] 03/04 [facility] Out[facility] Encounter [id number] 03/06 [facility] Out[facility] Encounter [id number] 03/16 [facility] COLLJ & INTERPJ DATA EA 30 D [id number] Diagnos is: ICD-10- CM G47.30 Sleep apnea, unspeci fied
TAJ ROBBINS 03/16 [facility] Out[facility] Encounter [id number] 03/26 [facility] Out[facility] Encounter [id number] 03/26 [facility] DEBRIDE NAIL 6 OR MORE [id number] Diagnos is: ICD-10- CM L60.3 Nail dystrop hy
ZAID FLORES YAEL 04/09 [facility] Out[facility] Encounter [id number] 05/11 [facility] Outpatient Encounter [id number] 05/17 [facility] OFFICE O/P EST LOW 20 MIN [id number] Diagnos is: ICD-10- CM I11.9 Hyperte nsive heart disease without heart failure
KIARA ESPARZA 06/02 [facility] HC PRO PHONE CALL 21-30 MIN [id number] Diagnos is: ICD-10- CM E78.5 Hyperli pidemia , unspeci fied
ALFA YOO A 06/09 [facility] Outpatient Encounter [id number] 06/11 [facility] DEBRIDE NAIL 6 OR MORE [id number] Diagnos is: ICD-10- CM L60.3 Nail dystrop hy
ZAID FLORES YAEL 06/18 [facility] OFFICE O/P EST LOW 20 MIN [id number] Diagnos is: ICD-10- CM G56.01 Carpal tunnel syndrom e, right upper limb
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, left eye, severe stage<b r/> [place] JAZMYNE [facility] INTRM OPH EXAM EST PATIENT [id number] Diagnos is: ICD-10- CM H40.111 3 Primary open-an gle glaucom a, right eye, severe stage<b r/> [place] JAZMYNE [facility] Outpatient Encounter [id number] [facility] Outpatient Encounter [id number] 08/03 [facility] Outpatient [facility]counter [id number] 08/06 [facility] OFFICE O/P EST MOD 30 MIN [id number] Diagnos is: ICD-10- CM M15.0 Primary general ized (osteo) arthrit is
AFTAB TEMPLE LY P 08/06 [facility] MTMS BY PHARM EST 15 MIN [id number] Diagnos is: ICD-10- CM E78.2 Mixed hyperli pidemia
GDSTASKENNETHALFA A 08/16 [facility] TRIM NAIL(S) [id number] Diagnos is: ICD-10- CM L60.3 Nail dystrop hy
ZAID FLORES YAEL 08/25 [facility] OFFICE O/P EST LOW 20 MIN [id number] Diagnos is: ICD-10- CM I11.9 Hyperte nsive heart disease without heart failure
KIARA ESPARZA 09/27 [facility] Out[facility] Encounter [id number] Kerry DALLAS 09/28 [facility] Outpatient Encounter [id number] 10/06 [facility] Outpatient Encounter [id number] 10/22 [facility] TRIM NAIL(S) [id number] [id number] Diagnos is: ICD-10- CM L60.3 Nail dystrop hy
ZAID FLORES YAEL 11/01 [facility] Outpatient Encounter [id number] 11/25 [facility] Outpatient Encounter [id number] 12/09 [facility] Outpatient [facility]counter [id number] 12/09 [facility] Outpatient [facility]counter [id number] 12/09 [facility] Outpatient Encounter [id number] 12/20 [facility] Outpatient Encounter [id number] 12/21 [facility] Outpatient Encounter [id number] 01/05 [facility] TRIM NAIL(S) [id number] Diagnos is: ICD-10- CM L60.3 Nail dystrop hy
ZAID FLORES YAEL 01/11 [facility] OFFICE O/P EST LOW 20 MIN [id number] Diagnos is: ICD-10- CM G47.30 Sleep apnea, unspeci fied
KIARA ESPARZA 01/24 [facility] Outpatient Encounter [id number] 02/04 [facility] Outpatient Encounter [id number] 02/04 [facility] INTRM OPH EXAM EST PATIENT [id number] Diagnos is: ICD-10- CM L71.8 Other rosacea
ABIMBOLA FREGOSO 02/15 [facility] Out[facility] Encounter [id number] 02/15 [facility] Outpatient Encounter [id number] 02/24 [facility] Outpatient Encounter [id number] 02/24 [facility] Outpatient Encounter [id number] 03/07 [facility] Outpatient Encounter [id number]/21 [facility] NURSING ASSESSMENT /EVALUATN [id number] Diagnos is: ICD-10- CM R19.4 Change in bowel habit<b r/> Kerry DALLAS 03/22 [facility] OFFICE O/P EST LOW 20 MIN [id number] Diagnos is: ICD-10- CM K59.00 Constip ation, unspeci fied
JIE CHOWDHURY 03/22 [facility] TRIM NAIL(S) [id number] Diagnos is: ICD-10- CM L60.3 Nail dystrop hy
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, lumbar region< br/> Krishan HARPER 04/07 [facility] Outpatient Encounter [id number] 04/07 [facility] RPR&REFITG SPECT XCP APHAKIA [id number] Diagnos is: ICD-10- CM Z46.0 Encount er for fit/adj st of spectac les and contact lenses< br/> Charlie JOSÉ 04/20 [facility] Outpatient Encounter [id number] 04/20 [facility] Outpatient Encounter [id number] 04/21 [facility] Outpatient Encounter [id number] 05/06 [facility] COLLJ & INTERPJ DATA EA 30 D [id number] Diagnos is: ICD-10- CM G47.30 Sleep apnea, unspeci fied
TAJ ROBBINS 05/06 [facility] HC PRO PHONE CALL 11-20 MIN [id number] Diagnos is: ICD-10- CM I25.10 Athscl heart disease of [place] coronar y artery w/o ang pctrs<b r/> KATHIE LONG 05/09 [facility] OFFICE O/P EST LOW 20 MIN [id number] Diagnos is: ICD-10- CM I11.9 Hyperte nsive heart disease without heart failure
KIARA ESPARZA 05/09 [facility] Social History Combined list of available smoking, tobacco, and other social history from Department of Defense and Veterans Affairs facilities. Social History Type Response Date Comment Source Tobacco smoking status GAIS VA-[facility]BACCO FORMER USER 12/21/2023 [facility] History of tobacco use VA-TOBACCO QUIT 15 YRS OR MORE 12/21/2023 [facility] History of tobacco use VA-TOBACCO FORMER USER 10/31/2022 [facility] History of tobacco use VA-TOBACCO FORMER USER 09/17/2021 [facility] History of tobacco use [place] FOR[facility] History of tobacco use [place]-[facility]ACCO FORMER USER 05/12/2019 [facility] History of tobacco use [place] FORMER USER 05/31/2018 [facility] History of tobacco use QUIT TOBACCO USE > 7 YEARS AGO 02/16/2017 quit 16 years [facility] History of tobacco use QUIT TOBACCO USE > 7 YEARS AGO 11/13/2015 . [facility] History of tobacco use QUIT TOBACCO USE > 7 YEARS AGO 05/12/2013 quit 2002 [facility] Plan of Care List of future care activities from [facility] facilities. Additional future care activities may be listed in the Assessment and Plan section. Date/Time Care Activity Care Activity Detail Facili ty 05/16/2024 AMBULATORY - MEDIC[facility] [place] [facility] 06/03/2024 AMBULATORY - MEDICINE AMBULATORY - [facility]IC[facility] [place] [facility] 06/16/2024 AMBULATORY - MEDICINE AMBULATORY - MEDIC[facility] [place] [facility] 06/22/2024 AMBULATORY - MEDICINE AM[facility] [place] [facility] [place] [facility] 08[facility]05/2024 AMBULATORY - MED[facility] [place] [facility] 08[facility]19/2024 AMBULATORY - MEDICINE AMBULATORY - [facility]IC[facility] [place] [facility] 09[facility]13/2024 AMBULATORY - MEDIC[facility] [place] [facility] 09[facility]13/2024 AMBULATORY - MEDICINE AMBULATORY - MEDICI [facility] [place] [facility] 05/09/2024 Consult Order [facility] ARDIOLOGY Cons Bilingual Teacher Assistant's Choice [facility] Advance Directives List of completed, amended, or rescinded Advance Directives on record at [facility] facilities. An actual copy of the Directive is not included. Date Advance Directive Provider Source 11/03/2022 ADVANCE DIRECTIVE [facility] 08/16/2020 ADVANCE DIRECT[facility]D [facility]
--- OUTSIDE RECORDS SUMMARY | 2024-05-16 14:03 | XMS_ITS | Encounter Summary ---
Author Name [facility] Organization [facility] Address [address] [place] [address] Care Team Providers Care Communications Administrator Name Role Phone KIARA ESPARZA Primary Care [...] Colbert's Name Patient's Relationship to Policy Colbert KYLIE [facility] (WNR) MEDICARE ADVANTAGE [facility] (WNR) Jun 01, 2017 [id number] [phone] Krishan TATE PATIENT [facility] (WNR) MEDICARE ADVANTAGE [facility] (WNR) Jun 01, 2017 [id number] Krishan TATE PATIENT [facility] (WNR) MEDICARE ADVANTAGE [facility] (WNR) Jun 01, 2017 [id number] Krishan TATE PATIENT Selected Encounter This section includes the information on record at ID for the Encounter. Date/Time Encounter Type Encounter Description Reason Provider Source Jun 09, 2023 09:30 AM PRO PHONE CALL 21-30 MIN TELEPHONE PRIMARY CARE ICD-10-CM E78.5 Hyperlipidemia, unspecified GDULA,ALFA A IHE Encounter Template Text not used by ID Assessments - Encounter Diagnoses This section includes the primary and secondary diagnoses documented for the Encounter. Date/Time Primary/Secondary Diagnosis Diagnosis Name Provider Source Jun 09, 2023 09:30 AM PRIMARY Hyperlipidemia, unspecified GDULA,ALFA A [facility] [place] [facility] Plan of Treatment: Future Appointments (+ 6 months) and Future Tests (+/- 45 days) The Plan of Treatment section includes future care activities for the patient from all ID treatmentfacilities. This section includes future appointments and future orders which are active, pending or scheduled. Future Appointments This section includes appointments that were scheduled to occur 6 months from the date of the Encounter, up to a maximum of 20 appointments. The data comes from all ID treatment facilities. Appointment Date/Time Appointment Type Appointme nt Facility Name Jun 18, 2023 02:00 PM AMBULATORY - MEDICINE ID [facility] [place] [facility] Jul 09, 2023 10:30 AM AMBULATORY - REHAB MEDICIN E [facility] [place] [facility] Jul 30, 2023 02:00 PM AMBULATORY - MEDICINE ID [facility] [place] [facility] Jul 30, 2023 02:15 PM AMBULATORY - MEDICINE ID [facility] [place] [facility] Jul 30, 2023 02:30 PM AMBULATORY - MEDICINE ID [facility] [place] [facility] Aug 04, 2023 02:00 PM AMBULATORY - MEDICINE ID [facility] [place] [facility] Aug 07, 2023 09:30 AM AMBULATORY - MEDICINE ID [facility] [place] [facility] Aug 17, 2023 11:30 AM AMBULATORY - MEDICINE ID [facility] [place] [facility] Aug 26, 2023 01:00 PM AMBULATORY - MEDICINE ID [facility] [place] [facility] Sep 28, 2023 10:30 AM AMBULATORY - MEDICINE ID [facility] [place] [facility] Nov 02, 2023 11:30 AM AMBULATORY - MEDICINE [facility] Lab Results: +/- 30 days of the encounter This section includes the Chemistry and Hematology Lab Results on record with ID for the patient. Radiology Reports and Pathology Reports are provided separately, in subsequent sections. Lab Results This section contains the Chemistry/Hematology Results that were resulted 30 days before or 30 daysafter the date of the Encounter. Date/Time Source Result Type Result - Unit Interpretation Reference Range Comment Jun 02, 2023 03:30 PM [facility] HEMOGLOBIN A1C PANEL Specimen Type: BLOOD Comment: Values obtained from A1C measurements can vary. For atypical A1C assays, a reported value of 7.0 could actually be between 6.72 and 7.28 if measured by a reference method. A reported value of 9.0 could actually be between 8.73 and 9.27. Ref: http://www.ngs p.org/CAPdata. asp Ordering Provider: SOLOMON ESPARZA Report Released Date/Time: Mar 02, 2023 10:38 AM Reporting Lab: [facility] [address] [address] Performing Lab: [address] [address] HEMOGLOBIN A1C 5.2 4.0-5.6 Jun 02, 2023 03:30 PM [facility] BASIC METABOLIC PANEL (fasting) Specimen Type: SERUM No comment entered. Ordering Provider: SOLOMON ESPARZA Report Released Date/Time: Mar 02, 2023 10:38 AM Reporting Lab: [facility] [address] [facility] [address] Performing Lab: [address] [address] UREA NITROGEN 14 mg/dL 7-25 GLUCOSE 114 mg/dL H 65-100 SODIUM 140 mmol/L 135-145 POTASSIUM 4.3 mmol/L 3.5-5.0 CHLORIDE 109 mmol/L 100-110 CO2 24 meq/L 20-30 CREATININE, Serum 0.81 mg/dL 0.50-1.40 eGFR(CKD-EPI 2020) 85 mL/min >60 Jun 02, 2023 03:30 PM [facility] LIVER FUNCTION Specimen Type: SERUM No comment entered. Ordering Provider: SOLOMON ESPARZA F Report Released Date/Time: Mar 02, 2023 10:38 AM Reporting Lab: [address] [address] Performing Lab: [address] [address] PROTEIN,TOTAL 6.6 g/dL 6.0-8.3 ALBUMIN 4.0 g/dL 3.5-5.0 ALKALINE PHOSPHATASE 44 U/L 40-150 AST 17 U/L 5-34 ALT 17 U/L BILIRUBIN, TOTAL 0.3 mg/dL 0.2-1.2 Jun 02, 2023 03:30 PM [facility] LIPID PANEL FASTING Specimen Type: SERUM No comment entered. Ordering Provider: SOLOMON ESPARZA F Report Released Date/Time: Mar 02, 2023 10:38 AM Reporting Lab: [address] [address] Performing Lab: [address] [address] CHOLESTEROL 120 mg/dL TRIGLYCERIDE 504 mg/dL H 0-150 LDL calculated Reflex to dLD L mg/dL 0-129 CHOL/HDL 4.1 HDL CHOLESTEROL 29 mg/dL L 40-60 LDL DIRECT 48 mg/dL Social History: Smoking Status (Most current) and Tobacco Use (All prior to encounter date) This section includes the most current, and the historical, smoking and tobacco- related health factors from the ID facility where the Encounter took place. Current Smoking Status This section includes the most current smoking, or tobacco-related health factor, from the ID facility where the Encounter took place. Date/Time Current Smoking Status Comment Facil ity Oct 31, 2022 11:30 AM VA-TOBACCO FORMER USER [facility] Tobacco Use History This section includes a history of the smoking, or tobacco-related health factors, that were collected on or before the date of the Encounter. The data comes from the ID facility where the Encounter took place. Date/Time Smoking Status/Tobac co Use Comment Facility Oct 31, 2022 11:30 AM VA-TOBACCO QUIT 15 YRS OR MORE [facility] [place] [facility] Sep 17, 2021 03:00 PM VA-TOBACCO FORMER USER [facility] [place] [facility] Sep 17, 2021 03:00 PM VA-TOBACCO QUIT 15 YRS OR MORE [facility] [place] [facility] Aug 15, 2020 10:00 AM VA-TOBACCO FORMER USER [facility] [place] [facility] Aug 15, 2020 10:00 AM VA-TOBACCO QUIT 15 YRS OR MORE [facility] [place] [facility] May 12, 2019 03:07 PM VA-TOBACCO FORMER USER [facility] [place] [facility] May 12, 2019 03:07 PM VA-TOBACCO QUIT 15 YRS OR MORE [facility] [place] [facility] May 31, 2018 01:08 PM VA-TOBACCO FORMER USER [facility] [place] [facility] May 31, 2018 01:08 PM VA-TOBACCO QUIT 15 YRS OR MORE [facility] [place] [facility] Feb 16, 2017 01:33 PM QUIT TOBACCO USE > 7 YEARS AGO quit 16 years ago [facility] [place] [facility] Nov 13, 2015 03:48 PM QUIT TOBACCO USE > 7 YEARS AGO . [facility] [place] [facility] May 12, 2013 12:49 PM QUIT TOBACCO USE > 7 YEARS AGO quit 2001 [facility] [place] [facility] Advance Directives: All historical and current Section Date Range: From patient's date of to the date document was created. This section includes ALL of a patient's completed or amended ID Advance and Rescinded Directives. The entries below indicate that a directive exists for the patient, but an actual copy is not included with this document. The data comes from all [facility]. Date Advance Directives Provider Source Nov 03, 2022 ADVANCE DIRECTIVE LENORA CARCAMO ID [facility] [place] [facility] Aug 16, 2020 ADVANCE DIRECTIVE EDMUND MORGAN [facility] [place] [facility] Encounter Notes: All associated encounter notes This section contains the clinical notes associated to the Encounter. Date/Time Encounter Note(s) Provider Source Jun 10, 2023 10:15 AM ADDENDUM: LOCAL TITLE: Addendum STANDARD TITLE: ADDENDUM DATE OF NOTE: JUN 10, 2023@10:15:05 ENTRY DATE: JUN 10, 2023@10:15:06 AUTHOR: ALFA YOO COSIGNER: URGENCY: STATUS: COMPLETED Will ask AMSA to please schedule patient for: [x ] CWM/NO/PHARM/PACT 3 TEL RTC order placed. Appointment Length: _30__ minutes. 08/11/23 @0930 tele Thank you! /elizabeth/ ALFA YOO PHARMD,BCPS CLINICAL PHARMACY PRACTITIONER Signed: 06/10/2023 10:15 Receipt Acknowledged By: 06/11/2023 09:20 /elizabeth/ SENTHIL BARBA ELIER --- Original Document --- 06/09/23 TELEPHONE NOTE/PHARMACY: CHAR TATE, 87 yo WHITE MALE, presents for telephone initial visit for hyperlipidemia management. Today, pt and present for telephone visit. Pt reports took 20 yrs to get it below 300 in regards to his triglyceride level. shares that pts mother had glaucoma and mini strokes, and father had glaucoma. Pt does not know if they had high triglycerides. Pt notes that we was losing weight in the summer time but once fall hit his weight went in the other direction. He notes that he eats differently in the summer vs fall and winter. He notes that he has been eating ice cream prior to labs being drawn and wonders if that could be attributing to increased tg level. Pt also notes he likes sweets and that his holiday season goes from after Day until after New Years. Current hyperlipidemia medications: - Rosuvastatin 40 mg daily Medication Adherence: - very consistent Diet Patterns: patient eats on avg. 2x/day: B: 1 toast, coffee L: sandwich with, lettuce, tomato, amezcua with canola oil , deli ham, tuna D: salads 2x/week, meat/veg/starch Snacks: ice cream, candy Drinks: coffee (2 cups), Alcohol: 1/2 beer every 2-3 weeks Tobacco: none Exercise: goes to pool, walks Allergies/ADR: PENICILLIN, NAPROXEN, CORTISONE Active and Recently Outpatient Medications (including Supplies): Active Outpatient Medications Status ========= 1) AMMONIUM LACTATE 12% LOTION APPLY MODERATE AMOUNT ACTIVE X TOPICALLY ONCE DAILY FOR DRY IRRITATED SKIN 2) CARBOXYMETHYLCELLULOSE NA 0.5% OPH SOLN INSTILL 1 ACTIVE X DROP INTO EACH EYE FOUR TIMES DAILY NEEDED FOR DRYNESS 3) DICLOFENAC NA 1% TOP GEL APPLY 2 GRAMS TOPICALLY FOUR ACTIVE TIMES A DAY FOR OSTEOARTHRITIS - USE DOSING CARD PROVIDED IN BOX APPLY TO HANDS 4) FERROUS SULFATE 325MG TAB TAKE ONE TABLET BY MOUTH ACTIVE X ONCE DAILY TO SUPPLEMENT IRON 5) HYLAN G-F20 48MG/6ML INJ SYRINGE 6ML INJECT 48MG/6ML HOLD INTRA-ARTICULAR NEEDED DIRECTED BY PROVIDER 6) LISINOPRIL 10MG TAB TAKE ONE TABLET BY MOUTH ONCE ACTIVE X DAILY TO CONTROL BLOOD PRESSURE 7) LUBRICATING (PF) OPH OINT APPLY THIN RIBBON INTO EACH ACTIVE X EYE AT BEDTIME 8) METOPROLOL TARTRATE 50MG TAB TAKE ONE TABLET BY MOUTH ACTIVE X TWICE DAILY FOR BLOOD PRESSURE/HEART 9) OMEPRAZOLE 20MG EC CAP TAKE ONE CAPSULE BY MOUTH ACTIVE X EVERY MORNING 30 MINUTES BEFORE BREAKFAST 10) ROSUVASTATIN CA 40MG TAB TAKE ONE TABLET BY MOUTH ACTIVE X ONCE DAILY FOR CHOLESTEROL 11) TAMSULOSIN HCL 0.4MG CAP TAKE ONE CAPSULE BY MOUTH ACTIVE X ONCE DAILY FOR ENLARGED PROSTATE 12) TIMOLOL MALEATE 0.5% OPH SOLN INSTILL 1 DROP INTO ACTIVE X EACH EYE EVERY MORNING Inactive Outpatient Medications Status ========= 1) CARBOXYMETHYLCELLULOSE NA 0.5% OPH SOLN INSTILL 1 DISCONTINUED DROP INTO EACH EYE TWICE DAILY NEEDED FOR (EDIT) DRYNESS 2) CARBOXYMETHYLCELLULOSE NA 0.5% OPH SOLN INSTILL 1 DROP INTO EACH EYE TWICE DAILY NEEDED FOR DRYNESS 3) FLUTICASONE PROP 50MCG 120D NASAL INHL INSTILL 1 DISCONTINUED SPRAY INTO EACH NOSTRIL TWICE DAILY FOR NASAL IRRITATION/INFLAMMATION 4) GUAIFENESIN 600MG SA TAB TAKE ONE TABLET BY MOUTH TWICE DAILY NEEDED FOR COUGH FOLLOW DOSE WITH FULL GLASS OF WATER 5) GUAIFENESIN 600MG SA TAB TAKE ONE TABLET BY MOUTH DISCONTINUED TWICE DAILY NEEDED FOR COUGH FOLLOW DOSE WITH FULL GLASS OF WATER 6) HYDROCHLOROTHIAZIDE 25MG TAB TAKE ONE TABLET BY MOUTH DISCONTINUED EVERY MORNING TO PREVENT FLUID/CONTROL BLOOD PRESSURE 7) LATANOPROST 0.005% OPH SOLN INSTILL 1 DROP INTO EACH X EYE AT BEDTIME FOR INCREASED PRESSURE IN THE EYE 8) LATANOPROST 0.005% OPH SOLN INSTILL 1 DROP INTO EACH DISCONTINUED EYE AT BEDTIME FOR INCREASED PRESSURE IN THE EYE 9) LISINOPRIL 10MG TAB TAKE ONE TABLET BY MOUTH ONCE DISCONTINUED DAILY TO CONTROL BLOOD PRESSURE 10) TAMSULOSIN HCL 0.4MG CAP TAKE ONE CAPSULE BY MOUTH DISCONTINUED ONCE DAILY (EDIT) 11) TAMSULOSIN HCL 0.4MG CAP TAKE ONE CAPSULE BY MOUTH DISCONTINUED ONCE DAILY 12) TIMOLOL MALEATE 0.5% OPH SOLN INSTILL 1 DROP INTO DISCONTINUED EACH EYE EVERY MORNING Active Non-VA Medications Status ========= 1) Non-VA ACETAMINOPHEN 325MG TAB 650MG BY MOUTH TWICE ACTIVE DAILY 2) Non-VA ASPIRIN 81MG EC TAB 81MG BY MOUTH DAILY ACTIVE X 3) Non-VA MULTIVITAMIN/MINERALS CAP/TAB 1 TABLET BY ACTIVE X MOUTH EVERY MORNING 27 Total Medications Labs: CHEM 7 TREND LAB CUMULATIVE SELECTED Collection DT Spec GLUCOSE BUN CREATIN Sodium K+/Pot CL CO2 06/02/2023 15:30 SERUM 114 H 14 0.81 140 4.3 109 24 03/02/2023 09:38 SERUM 98 14 0.81 140 4.7 107 25 10/23/2022 08:11 SERUM 101 H 13 0.80 142 4.8 108 23 06/27/2022 09:07 SERUM 104 H 17 0.83 139 4.6 105 27 06/19/2022 08:59 SERUM 103 H 17 0.83 140 4.6 107 26 LAB CUMULATIVE SELECTED 2 No selection items chosen for this component. CHEM 7 Results Collection DT Spec Sodium K+/Pot CL CO2 GLUCOSE BUN 06/02/2023 15:30 SERUM 140 4.3 109 24 114 H 14 03/02/2023 09:38 SERUM 140 4.7 107 25 98 14 10/23/2022 08:11 SERUM 142 4.8 108 23 101 H 13 06/27/2022 09:07 SERUM 139 4.6 105 27 104 H 17 06/19/2022 08:59 SERUM 140 4.6 107 26 103 H 17 02/07/2022 10:28 SERUM 140 4.7 107 24 92 18 06/27/2021 09:45 SERUM 139 4.5 105 23 99 18 03/18/2021 09:31 SERUM 142 4.7 107 26 94 13 12/17/2020 13:46 SERUM 140 4.5 106 26 94 19 08/03/2020 09:48 SERUM 141 4.6 107 25 99 19 02/02/2020 08:46 SERUM 141 4.9 106 25 101 H 16 11/04/2019 08:51 SERUM 140 4.7 107 24 95 15 08/05/2019 08:46 SERUM 141 4.5 107 26 108 H 19 04/15/2019 08:51 SERUM 141 4.7 111 H 23 101 H 17 02/17/2019 10:03 SERUM 143 4.8 109 25 71 16 08/31/2018 10:24 SERUM 143 4.7 110 25 122 H 25 eGFR CKD-EPI 202006/02/23 15:30 85 SERUM LIVER PANEL TREND Collection DT Spec AST ALT T BILI ALK JEANINE T. PROT ALBUMIN 06/02/2023 15:30 SERUM 17 17 0.3 44 6.6 4.0 03/02/2023 09:38 SERUM 15 18 0.3 55 6.6 3.9 10/23/2022 08:11 SERUM 16 16 0.3 56 6.7 3.9 06/27/2022 09:08 SERUM 17 20 0.5 50 6.6 4.2 06/19/2022 08:59 SERUM 19 20 0.4 50 6.7 4.1 HEMOGLOBIN A1C TREND Collection DT Spec HGBA1c 06/02/2023 15:30 BLOOD 5.2 03/02/2023 09:38 BLOOD 5.4 03/18/2021 09:31 BLOOD 5.3 12/24/2018 09:17 BLOOD 5.6 LIPID PANEL TREND Collection DT Spec CHOL HDL CHO/HDL LDL-d LDL-c TRIG 06/02/2023 15:30 SERUM 120 29 L 4.1 48 Reflex to dLDL 504 H 03/02/2023 09:38 SERUM 96 29 L 3.3 29 192 H 10/23/2022 08:11 SERUM 102 25 L 4.1 20 287 H 06/19/2022 08:59 SERUM 129 33 L 3.9 44 259 H 02/07/2022 10:28 SERUM 127 31 L 4.1 46 251 H Vitals: Ht: 63 in [160.0 cm] (03/02/2023 10:05) Wt: 215 lb [97.52 kg] (06/02/2023 14:24) BMI: BMI: 38.2 BP: 140/70 (06/02/2023 14:24) HR: 65 (06/02/2023 14:24) Assessment: CARDIOVASCULAR: Goal BP = <130/80 mmHg or <140/90 -Current BP is140/70 (06/02/2023 14:24) -Lipids: TG elevated 05/2023 -ASA:81 mg daily Plan: - Medication management - CONTINUE: Rosuvastatin 40 mg daily - Fish oil was a consideration, but in reviewing potential adr of bleeding pt and seemed more inclined to work on diet/lifestyle. - Pt and reported pt had hematuria in the past and he bleeds quite a bit when he cuts himself shaving. - Pt will do a FASTING lipid panel in 2 months to see if any improvement has occurred. - If no improvement occurs, can consider adding fibrate or at the very least e ezetimibe. - Healthy dietary and lifestyle modifications encouraged - Reviewed dietary choices in great length - Repeat lipid panel: 2 months EDUCATION -A shared decision-making approach was used in the development of this plan, involving the [place], clinician, and any caregivers present. The was provided the opportunity express questions or concerns, and the plan was adjusted as needed to address these concerns. -Reviewed with [place] any new medications, changes to the medication list, education, and plan from today's visit. Patient (and/or caregiver) verbalized understanding of the plan, including possible known risks and benefits, and had no additional questions. RTC:08/11/23 @0930 tele Time Spent:45 mins PBM PharmKrishan Pharmacotherapy Rem V12: PHARMACIST INTERVENTIONS: LIPID MANAGEMENT Medication monitoring, no dosage change required, continue to monitor and assess Medication reconciliation (changes to active VA and non-VA medication lists to reconcile differences) Changes to medication lists made Update dose, frequency, duration and/or dosage form of medication /elizabeth/ ALFA YOO PHARMD,BCPS CLINICAL PHARMACY PRACTITIONER Signed: 06/10/2023 10:15 ALFA YOO [facility] [place] [facility] Jun 09, 2023 09:30 AM PHARMACY TELEPHONE ENCOUNTER NOTE: LOCAL TITLE: TELEPHONE NOTE/PHARMACY STANDARD TITLE: PHARMACY TELEPHONE ENCOUNTER NOTE DATE OF NOTE: JUN 09, 2023@09:30 ENTRY DATE: JUN 09, 2023@09:30:53 AUTHOR: ALFA YOO EXP COSIGNER: URGENCY: STATUS: COMPLETED TELEPHONE NOTE/PHARMACY Has ADDENDA CHAR TATE, 87 yo WHITE MALE, presents for telephone initial visit for hyperlipidemia management. Today, pt and present for telephone visit. Pt reports took 20 yrs to get it below 300 in regards to his triglyceride level. shares that pts mother had glaucoma and mini strokes, and father had glaucoma. Pt does not know if they had high triglycerides. Pt notes that we was losing weight in the summer time but once fall hit his weight went in the other direction. He notes that he eats differently in the summer vs fall and winter. He notes that he has been eating ice cream prior to labs being drawn and wonders if that could be attributing to increased tg level. Pt also notes he likes sweets and that his holiday season goes from after Day until after New Years. Current hyperlipidemia medications: - Rosuvastatin 40 mg daily Medication Adherence: - very consistent Diet Patterns: patient eats on avg. 2x/day: B: 1 toast, coffee L: sandwich with, lettuce, tomato, amezcua with canola oil , deli ham, tuna D: salads 2x/week, meat/veg/starch Snacks: ice cream, candy Drinks: coffee (2 cups), Alcohol: 1/2 beer every 2-3 weeks Tobacco: none Exercise: goes to pool, walks Allergies/ADR: PENICILLIN, NAPROXEN, CORTISONE Active and Recently Outpatient Medications (including Supplies): Active Outpatient Medications Status ========= 1) AMMONIUM LACTATE 12% LOTION APPLY MODERATE AMOUNT ACTIVE X TOPICALLY ONCE DAILY FOR DRY IRRITATED SKIN 2) CARBOXYMETHYLCELLULOSE NA 0.5% OPH SOLN INSTILL 1 ACTIVE X DROP INTO EACH EYE FOUR TIMES DAILY NEEDED FOR DRYNESS 3) DICLOFENAC NA 1% TOP GEL APPLY 2 GRAMS TOPICALLY FOUR ACTIVE TIMES A DAY FOR OSTEOARTHRITIS - USE DOSING CARD PROVIDED IN BOX APPLY TO HANDS 4) FERROUS SULFATE 325MG TAB TAKE ONE TABLET BY MOUTH ACTIVE X ONCE DAILY TO SUPPLEMENT IRON 5) HYLAN G-F20 48MG/6ML INJ SYRINGE 6ML INJECT 48MG/6ML HOLD INTRA-ARTICULAR NEEDED DIRECTED BY PROVIDER 6) LISINOPRIL 10MG TAB TAKE ONE TABLET BY MOUTH ONCE ACTIVE X DAILY TO CONTROL BLOOD PRESSURE 7) LUBRICATING (PF) OPH OINT APPLY THIN RIBBON INTO EACH ACTIVE X EYE AT BEDTIME 8) METOPROLOL TARTRATE 50MG TAB TAKE ONE TABLET BY MOUTH ACTIVE X TWICE DAILY FOR BLOOD PRESSURE/HEART 9) OMEPRAZOLE 20MG EC CAP TAKE ONE CAPSULE BY MOUTH ACTIVE X EVERY MORNING 30 MINUTES BEFORE BREAKFAST 10) ROSUVASTATIN CA 40MG TAB TAKE ONE TABLET BY MOUTH ACTIVE X ONCE DAILY FOR CHOLESTEROL 11) TAMSULOSIN HCL 0.4MG CAP TAKE ONE CAPSULE BY MOUTH ACTIVE X ONCE DAILY FOR ENLARGED PROSTATE 12) TIMOLOL MALEATE 0.5% OPH SOLN INSTILL 1 DROP INTO ACTIVE X EACH EYE EVERY MORNING Inactive Outpatient Medications Status ========= 1) CARBOXYMETHYLCELLULOSE NA 0.5% OPH SOLN INSTILL 1 DISCONTINUED DROP INTO EACH EYE TWICE DAILY NEEDED FOR (EDIT) DRYNESS 2) CARBOXYMETHYLCELLULOSE NA 0.5% OPH SOLN INSTILL 1 DROP INTO EACH EYE TWICE DAILY NEEDED FOR DRYNESS 3) FLUTICASONE PROP 50MCG 120D NASAL INHL INSTILL 1 DISCONTINUED SPRAY INTO EACH NOSTRIL TWICE DAILY FOR NASAL IRRITATION/INFLAMMATION 4) GUAIFENESIN 600MG SA TAB TAKE ONE TABLET BY MOUTH TWICE DAILY NEEDED FOR COUGH FOLLOW DOSE WITH FULL GLASS OF WATER 5) GUAIFENESIN 600MG SA TAB TAKE ONE TABLET BY MOUTH DISCONTINUED TWICE DAILY NEEDED FOR COUGH FOLLOW DOSE WITH FULL GLASS OF WATER 6) HYDROCHLOROTHIAZIDE 25MG TAB TAKE ONE TABLET BY MOUTH DISCONTINUED EVERY MORNING TO PREVENT FLUID/CONTROL BLOOD PRESSURE 7) LATANOPROST 0.005% OPH SOLN INSTILL 1 DROP INTO EACH X EYE AT BEDTIME FOR INCREASED PRESSURE IN THE EYE 8) LATANOPROST 0.005% OPH SOLN INSTILL 1 DROP INTO EACH DISCONTINUED EYE AT BEDTIME FOR INCREASED PRESSURE IN THE EYE 9) LISINOPRIL 10MG TAB TAKE ONE TABLET BY MOUTH ONCE DISCONTINUED DAILY TO CONTROL BLOOD PRESSURE 10) TAMSULOSIN HCL 0.4MG CAP TAKE ONE CAPSULE BY MOUTH DISCONTINUED ONCE DAILY (EDIT) 11) TAMSULOSIN HCL 0.4MG CAP TAKE ONE CAPSULE BY MOUTH DISCONTINUED ONCE DAILY 12) TIMOLOL MALEATE 0.5% OPH SOLN INSTILL 1 DROP INTO DISCONTINUED EACH EYE EVERY MORNING Active Non-VA Medications Status ========= 1) Non-VA ACETAMINOPHEN 325MG TAB 650MG BY MOUTH TWICE ACTIVE DAILY 2) Non-VA ASPIRIN 81MG EC TAB 81MG BY MOUTH DAILY ACTIVE X 3) Non-VA MULTIVITAMIN/MINERALS CAP/TAB 1 TABLET BY ACTIVE X MOUTH EVERY MORNING 27 Total Medications Labs: CHEM 7 TREND LAB CUMULATIVE SELECTED Collection DT Spec GLUCOSE BUN CREATIN Sodium K+/Pot CL CO2 06/02/2023 15:30 SERUM 114 H 14 0.81 140 4.3 109 24 03/02/2023 09:38 SERUM 98 14 0.81 140 4.7 107 25 10/23/2022 08:11 SERUM 101 H 13 0.80 142 4.8 108 23 06/27/2022 09:07 SERUM 104 H 17 0.83 139 4.6 105 27 06/19/2022 08:59 SERUM 103 H 17 0.83 140 4.6 107 26 LAB CUMULATIVE SELECTED 2 No selection items chosen for this component. CHEM 7 Results Collection DT Spec Sodium K+/Pot CL CO2 GLUCOSE BUN 06/02/2023 15:30 SERUM 140 4.3 109 24 114 H 14 03/02/2023 09:38 SERUM 140 4.7 107 25 98 14 10/23/2022 08:11 SERUM 142 4.8 108 23 101 H 13 06/27/2022 09:07 SERUM 139 4.6 105 27 104 H 17 06/19/2022 08:59 SERUM 140 4.6 107 26 103 H 17 02/07/2022 10:28 SERUM 140 4.7 107 24 92 18 06/27/2021 09:45 SERUM 139 4.5 105 23 99 18 03/18/2021 09:31 SERUM 142 4.7 107 26 94 13 12/17/2020 13:46 SERUM 140 4.5 106 26 94 19 08/03/2020 09:48 SERUM 141 4.6 107 25 99 19 02/02/2020 08:46 SERUM 141 4.9 106 25 101 H 16 11/04/2019 08:51 SERUM 140 4.7 107 24 95 15 08/05/2019 08:46 SERUM 141 4.5 107 26 108 H 19 04/15/2019 08:51 SERUM 141 4.7 111 H 23 101 H 17 02/17/2019 10:03 SERUM 143 4.8 109 25 71 16 08/31/2018 10:24 SERUM 143 4.7 110 25 122 H 25 eGFR CKD-EPI 202006/02/23 15:30 85 SERUM LIVER PANEL TREND Collection DT Spec AST ALT T BILI ALK JEANINE T. PROT ALBUMIN 06/02/2023 15:30 SERUM 17 17 0.3 44 6.6 4.0 03/02/2023 09:38 SERUM 15 18 0.3 55 6.6 3.9 10/23/2022 08:11 SERUM 16 16 0.3 56 6.7 3.9 06/27/2022 09:08 SERUM 17 20 0.5 50 6.6 4.2 06/19/2022 08:59 SERUM 19 20 0.4 50 6.7 4.1 HEMOGLOBIN A1C TREND Collection DT Spec HGBA1c 06/02/2023 15:30 BLOOD 5.2 03/02/2023 09:38 BLOOD 5.4 03/18/2021 09:31 BLOOD 5.3 12/24/2018 09:17 BLOOD 5.6 LIPID PANEL TREND Collection DT Spec CHOL HDL CHO/HDL LDL-d LDL-c TRIG 06/02/2023 15:30 SERUM 120 29 L 4.1 48 Reflex to dLDL 504 H 03/02/2023 09:38 SERUM 96 29 L 3.3 29 192 H 10/23/2022 08:11 SERUM 102 25 L 4.1 20 287 H 06/19/2022 08:59 SERUM 129 33 L 3.9 44 259 H 02/07/2022 10:28 SERUM 127 31 L 4.1 46 251 H Vitals: Ht: 63 in [160.0 cm] (03/02/2023 10:05) Wt: 215 lb [97.52 kg] (06/02/2023 14:24) BMI: BMI: 38.2 BP: 140/70 (06/02/2023 14:24) HR: 65 (06/02/2023 14:24) Assessment: CARDIOVASCULAR: Goal BP = <130/80 mmHg or <140/90 -Current BP is140/70 (06/02/2023 14:24) -Lipids: TG elevated 05/2023 -ASA:81 mg daily Plan: - Medication management - CONTINUE: Rosuvastatin 40 mg daily - Fish oil was a consideration, but in reviewing potential adr of bleeding pt and seemed more inclined to work on diet/lifestyle. - Pt and reported pt had hematuria in the past and he bleeds quite a bit when he cuts himself shaving. - Pt will do a FASTING lipid panel in 2 months to see if any improvement has occurred. - If no improvement occurs, can consider adding fibrate or at the very least e ezetimibe. - Healthy dietary and lifestyle modifications encouraged - Reviewed dietary choices in great length - Repeat lipid panel: 2 months EDUCATION -A shared decision-making approach was used in the development of this plan, involving the [place], clinician, and any caregivers present. The was provided the opportunity express questions or concerns, and the plan was adjusted as needed to address these concerns. -Reviewed with any new medications, changes to the medication list, education, and plan from today's visit. Patient (and/or caregiver) verbalized understanding of the plan, including possible known risks and benefits, and had no additional questions. RTC:08/11/23 @0930 tele Time Spent:45 mins PBM PharmD Pharmacotherapy Rem V12: PHARMACIST INTERVENTIONS: LIPID MANAGEMENT Medication monitoring, no dosage change required, continue to monitor and assess Medication reconciliation (changes to active VA and non-VA medication lists to reconcile differences) Changes to medication lists made Update dose, frequency, duration and/or dosage form of medication /elizabeth/ ALFA YOO PHARMD, BCPS CLINICAL PHARMACY PRACTITIONER Signed: 06/10/2023 10:15 06/10/2023 ADDENDUM STATUS: COMPLETED Will ask [facility] to please schedule patient for: [x ] CWM/NO/PHARM/PACT 3 TEL RTC order placed. Appointment Length: _30__ minutes. 08/11/23 @0930 tele Thank you! /shakir YOO PHARMD,JM CLINICAL PHARMACY PRACTITIONER Signed: 06/10/2023 10:15 Receipt Acknowledged By: * AWAITING SIGNATURE * SENTHIL BARBA JODI A [facility]
--- OUTSIDE RECORDS SUMMARY | 2024-05-16 14:04 | XMS_ITS | Encounter Summary ---
Author Name [facility] [place] [facility] [place] [facility] [place] Address [address] [place] [address] Care Team Providers Care Fundraising Consultant Name Role Phone KIARA ESPARZA Primary Care [...] Colbert's Name Patient's Relationship to Policy Colbert [facility] (WNR) MEDICARE ADVANTAGE [facility] (WNR) Jun 01, 2017 [id number] Krishan TATE PATIENT [facility] (WNR) MEDICARE ADVANTAGE [facility] (WNR) Jun 01, 2017 [id number] [phone] Krishan TATE PATIENT [facility] (WNR) MEDICARE ADVANTAGE [facility] (WNR) Jun 01, 2017 [id number] Krishan TATE PATIENT Selected Encounter This section includes the information on record at [place] for the Encounter. Date/Time Encounter Type Encounter Description Reason Provider Source Jun 18, 2023 02:00 PM [facility]BR[facility] NAIL 6 OR MORE PODIATRY ICD-10-CM L60.3 Nail dystrophy DONAVAN FLORES Avis Encounter Template Text not used by [place] Assessments - Encounter Diagnoses This section includes the primary and secondary diagnoses documented for the Encounter. Date/Time Primary/Secondary Diagnosis Diagnosis Name Provider Source Jun 18, 2023 02:38 PM PRIMARY Nail dystrophy DONAVAN FLORES [place] [facility] [place] [facility] Plan of Treatment: Future Appointments (+ 6 months) and Future Tests (+/- 45 days) The Plan of Treatment section includes future care activities for the patient from all [place] treatmentfacilities. This section includes future appointments and future orders which are active, pending or scheduled. Future Appointments This section includes appointments that were scheduled to occur 6 months from the date of the Encounter, up to a maximum of 20 appointments. The data comes from all [place] treatment facilities. Appointment Date/Time Appointment Type Appointme nt Facility Name Jul 09, 2023 10:30 AM AMBULATORY - REHAB MEDICIN E [facility] [place] [facility] Jul 30, 2023 02:00 PM AMBULATORY - MEDICINE [place] [facility] [place] [facility] Jul 30, 2023 02:15 PM AMBULATORY - MEDICINE [place] [facility] [place] [facility] Jul 30, 2023 02:30 PM AM[place]ULATORY - MEDICINE [place] [facility] [place] [facility] Aug 04, 2023 02:00 PM AMBULATORY - MEDICINE [place] [facility] [place] [facility] Aug 07, 2023 09:30 AM AMBULATORY - MEDICINE [place] [facility] [place] [facility] Aug 17, 2023 11:30 AM AMBULATORY - MEDICINE [place] [facility] [place] [facility] Aug 26, 2023 01:00 PM AMBULATORY - MEDICINE [place] [facility] [place] [facility] Sep 28, 2023 10:30 AM AMBULATORY - MEDICINE [place] [facility] [place] [facility] Nov 02, 2023 11:30 AM AMBULATORY - MEDICINE [place] [facility] [place] [facility] Lab Results: +/- 30 days of the encounter This section includes the Chemistry and Hematology Lab Results on record with [place] for the patient. Radiology Reports and Pathology Reports are provided separately, in subsequent sections. Lab Results This section contains the Chemistry/Hematology Results that were resulted 30 days before or 30 daysafter the date of the Encounter. Date/Time Source Result Type Result - Unit Interpretation Reference Range Comment Jun 02, 2023 03:30 PM [facility] HEMOGLOBIN A1C PANEL Specimen Type: BLOOD [...] Mar 02, 2023 10:38 AM Reporting Lab: [address] [id number] Performing Lab: [address] [address] HEMOGLOBIN A1C 5.2 4.0-5.6 Jun 02, 2023 03:30 PM [facility] BASIC METABOLIC PANEL (fasting) Specimen Type: SERUM No comment entered. Ordering Provider: SOLOMON ESPARZA F Report Released Date/Time: Mar 02, 2023 10:38 AM Reporting Lab: [address] [address] Performing Lab: [address] [address] UREA NITROGEN 14 mg/dL 7-25 GLUCOSE 114 mg/dL H 65-100 SODIUM 140 mmol/L 135-145 POTASSIUM 4.3 mmol/L 3.5-5.0 CHLORIDE 109 mmol/L 100-110 CO2 24 meq/L 20-30 CREATININE, Serum 0.81 mg/dL 0.50-1.40 eGFR(CKD-EPI 2020) 85 mL/min >60 Jun 02, 2023 03:30 PM [facility] LIVER FUNCTION Specimen Type: SERUM No comment entered. Ordering Provider: SOLOMON ESPARZA F Report Released Date/Time: Mar 02, 2023 10:38 AM Reporting Lab: [facility] [address] [facility] [address] Performing Lab: [address] [address] PROTEIN,TOTAL 6.6 g/dL 6.0-8.3 ALBUMIN 4.0 g/dL 3.5-5.0 ALKALINE PHOSPHATASE 44 U/L 40-150 AST 17 U/L 5-34 ALT 17 U/L BILIRUBIN, TOTAL 0.3 mg/dL 0.2-1.2 Jun 02, 2023 03:30 PM [facility] LIPID PANEL FASTING Specimen Type: SERUM No comment entered. Ordering Provider: SOLOMON ESPARZA F Report Released Date/Time: Mar 02, 2023 10:38 AM Reporting Lab: [address] [phone] Performing Lab: [address] [address] CHOLESTEROL 120 mg/dL TRIGLYCERIDE 504 mg/dL H 0-150 LDL calculated Reflex to dLD L mg/dL 0-129 CHOL/HDL 4.1 HDL CHOLESTEROL 29 mg/dL L 40-60 LDL DIRECT 48 mg/dL Social History: Smoking Status (Most current) and Tobacco Use (All prior to encounter date) This section includes the most current, and the historical, smoking and tobacco- related health factors from the [place] facility where the Encounter took place. Current Smoking Status This section includes the most current smoking, or tobacco-related health factor, from the [place] facility where the Encounter took place. Date/Time Current Smoking Status Comment [facility] Oct 31, 2022 11:30 AM VA-TOBACCO FORMER USER [facility] Tobacco Use History This section includes a history of the smoking, or tobacco-related health factors, that were collected on or before the date of the Encounter. The data comes from the [place] facility where the Encounter took place. Date/Time Smoking Status/Tobac co Use Comment [facility] Oct 31, 2022 11:30 AM VA-TOBACCO QUIT 15 YRS OR MORE [facility] [place] [facility] Sep 17, 2021 03:00 PM VA-TOBACCO FORMER USER [place] [facility] [place] [facility] Sep 17, 2021 03:00 PM VA-TOBACCO QUIT 15 YRS OR MORE [facility] [place] [facility] Aug 15, 2020 10:00 AM VA-TOBACCO FORMER USER [facility] [place] [facility] Aug 15, 2020 10:00 AM VA-TOBACCO QUIT 15 YRS OR MORE [place] [facility] [place] [facility] May 12, 2019 03:07 PM VA-TOBACCO FORMER USER [place] [facility] [place] [facility] May 12, 2019 03:07 PM VA-TOBACCO QUIT 15 YRS OR MORE [place] [facility] [place] [facility] May 31, 2018 01:08 PM VA-TOBACCO FORMER USER [place] [facility] [place] [facility] May 31, 2018 01:08 PM VA-TOBACCO QUIT 15 YRS OR MORE [place] [facility] [place] [facility] Feb 16, 2017 01:33 PM QUIT TOBACCO USE > 7 YEARS AGO quit 16 years ago [place] [facility] [place] [facility] Nov 13, 2015 03:48 PM QUIT TOBACCO USE > 7 YEARS AGO . [place] [facility] [place] [facility] May 12, 2013 12:49 PM QUIT TOBACCO USE > 7 YEARS AGO quit 2002 [place] [facility] Advance Directives: All historical and current Section Date Range: From patient's date of to the date document was created. This section includes ALL of a patient's completed or amended [place] Advance and Rescinded Directives. The entries below indicate that a directive exists for the patient, but an actual copy is not included with this document. The data comes from all [place] facilities. Date Advance Directives Provider Source Nov 03, 2022 ADVANCE DIRECTIVE LENORA CARCAMO [place] [facility] [place] [facility] Aug 16, 2020 ADVANCE DIRECTIVE EDMUND MORGAN [place] [facility] [place] [facility] Encounter Notes: All associated encounter notes This section contains the clinical notes associated to the Encounter. Date/Time Encounter Note(s) Provider Source Jun 18, 2023 02:35 PM NURSING OUTPATIENT NOTE: LOCAL TITLE: NURSING/SPECIALTY CLINIC NOTE STANDARD TITLE: NURSING OUTPATIENT NOTE DATE OF NOTE: JUN 18, 2023@14:35 ENTRY DATE: JUN 18, 2023@14:35:29 AUTHOR: DONAVAN FLORES COSIGNER: URGENCY: STATUS: COMPLETED Mobile [facility] for [facility] care. has a history of Thick nails and is unable to trim his/her own nails. Ambulates: [X]self [ ]wheelchair can transfer [ ]wheelchair cannot transfer [x ]without assistance [ ]with assistance of Bilateral: Pedal pulses: Right Foot: Dorsalis Pedis - palpable [x ] non-palpable[ ] Posterior Tibial - palpable[x ] non-palpable[ ] Left Foot: Dorsalis Pedis - palpable [x ] non-palpable [ ] Posterior Tibial - palpable [x ] non-palpable[ ] Pedal sensation: Right Foot: [x ] Intact [ ] Absent out of 10 sites Left Foot: [x ] Intact [ ] Absent out of 10 sites Skin Temperature: [x ] Warm to warm, proximal to distal [ ] Warm to cool/cold, proximal to distal Pedal skin: [x ] Intact [ x] Dry [ ] Cracked [ ] Discolored Webspaces: [x ] Intact [x ] Clean [ ] Soiled [ ] Macerated [x ] Dry Nails: [x ] Thickened [x ] Elongated [x ] Dystrophic [ ] Discolored [ ] Fungal [ ] Incurvated [ ] Subungual debri Hyperkeratosis [ ] Yes, Locations: [x ] No Open lesions/wounds: [ ] Yes, Locations: [x ] No Amputations: [ ] Yes, Locations: [x ] No Edema present: ( ) Yes ( x ) NO Podiatric Problem List: [ ] Diabetes mellitus [ ] Peripheral vascular disease [ ] Neuropathy [ ] Onychomycosis [x ] Dystrophic toenails [ ] Hyperkeratosis/calluses [x ] Xerosis/dry skin [ ] Other: Treatment: [x ] Nails x 10 debrided in length and thickness without incident [ ] Hyperkeratotic lesions were grinded down with eletric burr grinder and debrided without incidence. [x ]Patient education educated about proper foot and encouraged to check feet daily for injuries and wounds [ ] Instructed to moisturize feet daily but not in-between toes . Patient is to RTC in 2 months. /elizabeth/ DONAVAN FLORES LPN LICENSED PRACTICAL NURSE Signed: 06/18/2023 14:39 Receipt Acknowledged By: 06/18/2023 17:28 /elizabeth/ KAREN HOUSE DPM PODIATRY ATTENDING DONAVAN FLORES [facility]
--- OUTSIDE RECORDS SUMMARY | 2024-05-16 14:04 | XMS_ITS | Encounter Summary ---
Author Name [facility] [place] [facility] [place] [facility] [facility] [place] Address [address] [place] [address] Care Team Providers Care Silk Printer Name Role Phone KIARA ESPARZA Primary Care [...] Name Patient's Relationship to Policy Colbert KYLIE [facility] (WNR) MEDICARE ADVANTAGE [facility] (WNR) Jun 01, 2017 [id number] Krishan TATE PATIENT [facility] (WNR) MEDICARE ADVANTAGE [facility] (WNR) Jun 01, 2017 [id number] Krishan TATE PATIENT [facility] (WNR) MEDICARE ADVANTAGE [facility] (WNR) Jun 01, 2017 [id number] Krishan TATE PATIENT Selected Encounter This section includes the information on record at [place] for the Encounter. Date/Time Encounter Type Encounter Description Reason Provider Source Jul 30, 2023 02:30 PM INTRM OPH EXAM EST PATIENT OPTOMETRY ICD-10-CM 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, right eye, severe stage RICARDO FREGOSO Avis E Encounter Template Text not used by [facility] Assessments - Encounter Diagnoses This section includes the primary and secondary diagnoses documented for the Encounter. Date/Time Primary/Secondary Diagnosis Diagnosis Name Provider Source Jul 31, 2023 04:13 PM PRIMARY Primary open-angle glaucoma, right eye, severe stage RICARDO FREGOSO [facility] [place] [facility] Jul 31, 2023 04:13 PM SECONDARY Dry eye syndrome of bilateral lacrimal glands ZENOBIARICARDO [facility] [place] Jul 31, 2023 04:13 PM SECONDARY Other rosacea RICARDO FREGOSO [facility] Jul 31, 2023 04:13 PM SECONDARY Presence of intraocular lens ZENOBIARICARDO [facility] [place] Jul 31, 2023 04:13 PM SECONDARY Primary open-angle glaucoma, left eye, severe stage RICARDO FREGOSO [facility] [place] Jul 31, 2023 04:13 PM SECONDARY Rosacea conjunctivitis, bilateral RICARDO FREGOSO Avis [place] [facility] [place] [facility] Plan of Treatment: Future Appointments (+ 6 months) and Future Tests (+/- 45 days) The Plan of Treatment section includes future care activities for the patient from [facility] [place] [facility] This section includes future appointments and future orders which are active, pending or scheduled. Future Appointments This section includes appointments that were scheduled to occur 6 months from the date of the Encounter, up to a maximum of 20 appointments. The data comes from all [place] treatment facilities. Appointment Date/Time Appointment Type Appointme nt Facility Name Aug 04, 2023 02:00 PM AMBULATORY - MEDICINE [facility] [place] [facility] Aug 07, 2023 09:30 AM AMBULATORY - MEDICINE [facility] [place] Aug 17, 2023 11:30 AM AMBULATORY - MEDICINE [facility] [place] Aug 26, 2023 01:00 PM AMBULATORY - MEDICINE [facility] [place] Sep 28, 2023 10:30 AM AMBULATORY - MEDICINE [facility] [place] Nov 02, 2023 11:30 AM AMBULATORY - MEDICINE [facility] [place] [facility] Dec 22, 2023 11:10 AM AMBULATORY - MEDICINE [facility] [place] Jan 06, 2024 10:40 AM AMBULATORY - MEDICINE [facility] [place] Jan 12, 2024 02:30 PM AMBULATORY - MEDICINE [facility] [place] Jan 25, 2024 10:30 AM AMBULATORY - MEDICINE [facility] Lab Results: +/- 30 days of the encounter This section includes the Chemistry and Hematology Lab Results on record with VA for the patient. Radiology Reports and Pathology Reports are provided separately, in subsequent sections. Lab Results This section contains the Chemistry/Hematology Results that were resulted 30 days before or 30 daysafter the date of the Encounter. Date/Time Source Result Type Result - Unit Interpretation Reference Range Comment Aug 07, 2023 08:13 AM [facility] VITAMIN D (25-OH) Specimen Type: SERUM No comment entered. Ordering Provider: BRITTNEY ESPARZA Report Released Date/Time: Jul 30, 2023 03:58 PM Reporting Lab: [facility] [address] Performing Lab: [facility]TRN [facility]USETS [address] [address] VITAMIN D (25-OH) 44 ng/mL 20-50 Aug 07, 2023 08:12 AM [facility] LIPID PANEL FASTING Specimen Type: SERUM No comment entered. Ordering Provider: BRITTNEY ESPARZA Report Released Date/Time: Jun 04, 2023 12:30 PM Reporting Lab: [facility]TRN [facility] [address] [facility] [address] Performing Lab: [facility]ENTERUSE[address] [address] CHOLESTEROL 120 mg/dL TRIGLYCERIDE 189 mg/dL H 0-150 LDL calculated 45 mg/dL 0-129 CHOL/HDL 3.2 HDL CHOLESTEROL 37 mg/dL L 40-60 Aug 07, 2023 08:12 AM [facility] LIVER FUNCTION Specimen Type: SERUM No comment entered. Ordering Provider: BRITTNEY ESPARZA Report Released Date/Time: Jun 04, 2023 12:30 PM Reporting Lab: [address] [address] Performing Lab: [address] [address] PROTEIN,TOTAL 6.5 g/dL 6.0-8.3 ALBUMIN 4.0 g/dL 3.5-5.0 ALKALINE PHOSPHATASE 49 U/L 40-150 AST 16 U/L 5-34 ALT 20 U/L BILIRUBIN, TOTAL 0.4 mg/dL 0.2-1.2 Aug 07, 2023 08:12 AM [facility] BASIC METABOLIC PANEL (fasting) Specimen Type: SERUM No comment entered. Ordering Provider: BRITTNEY ESPARZA Report Released Date/Time: Jun 04, 2023 12:30 PM Reporting Lab: [address] [address] Performing Lab: [address] [address] UREA NITROGEN 15 mg/dL 7-25 GLUCOSE 106 mg/dL H 65-100 SODIUM 140 mmol/L 135-145 POTASSIUM 4.5 mmol/L 3.5-5.0 CHLORIDE 107 mmol/L 100-110 CO2 26 meq/L 20-30 CREATININE, Serum 0.82 mg/dL 0.50-1.40 eGFR(CKD-EPI 2020) 85 mL/min >60 Aug 07, 2023 08:12 AM [facility] VITAMIN B-1 (THIAMINE)-(QU) Specimen Type: PLASMA Comment: Vitamin supplementation within 24 hours prior to blood draw may affect the accuracy of the results. This test was developed and its analytical performance characteristics have been determined by [facility] [place] [place]. It has not been cleared or approved by the U.S. Food and Drug Administration. This assay has been validated pursuant to the CLIA regulations and is used for clinical purposes. Test Performed by [facility], [facility], [address] [place] [address] Dami Potts M.D., Ph.D., Director of Laboratories , CLIA [id number] TEST PERFORMED AT: , Ordering Provider: BRITTNEY ESPARZA Report Released Date/Time: Jul 30, 2023 03:58 PM Reporting Lab: [address] [address] Performing Lab: [facility] [address] [address] VITAMIN B-1 (THIAMINE)-(Q U) 29 nmol/L 8-30 Aug 07, 2023 08:12 AM [facility] FOLATE Specimen Type: SERUM No comment entered. Ordering Provider: BRITTNEY ESPARZA Report Released Date/Time: Jul 30, 2023 03:58 PM Reporting Lab: [facility] [address] [facility] [address] Performing Lab: [facility] [address] [facility] [address] FOLATE 14.70 ng/mL >5.2 Aug 07, 2023 08:12 AM [facility] TSH Specimen Type: SERUM No comment entered. Ordering Provider: BRITTNEY ESPARZA Report Released Date/Time: Jul 30, 2023 03:58 PM Reporting Lab: [facility] [address] [facility] [address] Performing Lab: [facility] [address] [facility] [address] TSH 2.25 u[IU]/mL 0.35-5.00 Aug 07, 2023 08:12 AM [facility] VITAMIN B12 Specimen Type: SERUM No comment entered. Ordering Provider: BRITTNEY ESPARZA Report Released Date/Time: Jul 30, 2023 03:58 PM Reporting Lab: [facility] [address] [facility] [address] Performing Lab: [address] [address] VITAMIN B12 552 pg/mL 200-900 Aug 07, 2023 08:12 AM [facility] IRON & TIBC PANEL Specimen Type: SERUM No comment entered. Ordering Provider: BRITTNEY ESPARZA Report Released Date/Time: Jul 30, 2023 03:58 PM Reporting Lab: [address] [address] Performing Lab: [address] [address] TIBC 408 ug/dL 204-475 IRON 59 ug/dL 40-160 Transferrin Saturation 14.5 L 20.0-50.0 Aug 07, 2023 08:12 AM [facility] CBC AND DIFF (AUTO) Specimen Type: BLOOD No comment entered. Ordering Provider: BRITTNEY ESPARZA Report Released Date/Time: Jul 30, 2023 03:58 PM Reporting Lab: [facility] [address] [facility] [address] Performing Lab: [address] [address] WBC 5.36 10*3/uL 4.50-11.00 RBC 4.97 10*6/uL 4.23-5.66 HGB 14.7 g/dL 12.8-17 HCT 44.9 39.2-50.4 MCV 90.3 fL 82-99 MCHC 32.7 g/dL 30.8-35.1 PLT 273 10*3/uL 140-360 RDW-CV 13.0 12.0-16.0 Divide, Abs 0.59 10*3/uL 0.30-1.10 MCH 29.6 pg 26.2-32.6 Neut % 70.0 43.7-75.8 Lymph % 14.9 14.0-42.3 Divide % 11.0 5.1-13.7 Eos % 3.2 0.4-6.8 Baso % 0.7 0.1-2.0 Neut, Abs 3.75 10*3/uL 2.20-7.60 Lymph, Abs 0.80 10*3/uL L 1.00-3.20 Eos, Abs 0.17 10*3/uL 0.03-0.44 Baso, Abs 0.04 10*3/uL 0.01-0.13 Immature Gran % 0.2 0.0-0.7 Immature Gran, Abs 0.01 10*3/uL 0.00-0.06 Social History: Smoking Status (Most current) and Tobacco Use (All prior to encounter date) This section includes the most current, and the historical, smoking and tobacco- related health factors from the [place] facility where the Encounter took place. Current Smoking Status This section includes the most current smoking, or tobacco-related health factor, from the [place] facility where the Encounter took place. Date/Time Current Smoking Status Comment [facility] Oct 31, 2022 11:30 AM VA-TOBACCO FORMER USER [place] [facility] [place] [facility] Tobacco Use History This section includes a history of the smoking, or tobacco-related health factors, that were collected on or before the date of the Encounter. The data comes from the [place] facility where the Encounter took place. Date/Time Smoking Status/Tobac co Use Comment [facility] Oct 31, 2022 11:30 AM VA-TOBACCO QUIT 15 YRS OR MORE [place] [facility] [place] [facility] Sep 17, 2021 03:00 PM VA-TOBACCO FORMER USER [facility] [place] [facility] Sep 17, 2021 03:00 PM VA-TOBACCO QUIT 15 YRS OR MORE [facility] [place] [facility] Aug 15, 2020 10:00 AM VA-TOBACCO FORMER USER [facility] [place] [facility] Aug 15, 2020 10:00 AM VA-TOBACCO QUIT 15 YRS OR MORE [facility] [place] [facility] May 12, 2019 03:07 PM VA-TOBACCO FORMER USER [place] [facility] [place] [facility] May 12, 2019 03:07 PM VA-TOBACCO QUIT 15 YRS OR MORE [facility] May 31, 2018 01:08 PM VA-TOBACCO FORMER USER [place] [facility] May 31, 2018 01:08 PM VA-TOBACCO QUIT 15 YRS OR MORE [place] CNT [facility] Feb 16, 2017 01:33 PM QUIT TOBACCO USE > 7 YEARS AGO [facility] [address] [facility] Nov 13, 2015 03:48 PM QUIT TOBACCO USE > 7 YEARS AGO . [facility] May 12, 2013 12:49 PM QUIT TOBACCO USE > 7 YEARS AGO quit 2001 [facility] Advance Directives: All historical and current Section Date Range: From patient's date of to the date document was created. This section includes ALL of a patient's completed or amended [place] Advance and Rescinded Directives. The entries below indicate that a directive exists for the patient, but an actual copy is not included with this document. The data comes from all [place] facilities. Date Advance Directives Provider Source Nov 03, 2022 ADVANCE DIRECTIVE [facility]EN[facility]A CARCAMO [facility] Aug 16, [address] [facility] [facility] Encounter Notes: All associated encounter notes This section contains the clinical notes associated to the Encounter. Date/Time Encounter Note(s) Provider Source Jul 30, 2023 08:13 AM OPTOMETRY NOTE: LOCAL TITLE: OPTOMETRY NOTE STANDARD TITLE: OPTOMETRY NOTE DATE OF NOTE: JUL 30, 2023@08:13 ENTRY DATE: JUL 30, 2023@08:13:29 AUTHOR: MELODY KING CHR EXP COSIGNER: URGENCY: STATUS: COMPLETED OPTOMETRY NOTE Has ADDENDA Active problems - Computerized Problem List is the source for the followin. Hematuria (SCT 20181154) 2. Inflamed Seborrheic Keratosis (SCT 19876819) 3. Glaucoma 4. Chronic gastric ulcer 5. Obesity 6. Primary generalized osteoarthritis 7. Obstructive sleep apnea syndrome 8. Coronary arteriosclerosis 9. Benign essential hypertension (SNOMED CT 9122981) 10. HYPERLIPIDEMIA 11. 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 BPH W/O URINARY OBSTRUCT Active Outpatient Medications (including Supplies): Active Outpatient Medications Status 1) AMMONIUM LACTATE 12% LOTION APPLY MODERATE AMOUNT ACTIVE TOPICALLY ONCE DAILY FOR DRY IRRITATED SKIN 2) CARBOXYMETHYLCELLULOSE NA 0.5% OPH SOLN INSTILL 1 ACTIVE DROP INTO EACH EYE FOUR TIMES DAILY NEEDED FOR DRYNESS 3) DICLOFENAC NA 1% TOP GEL APPLY 2 GRAMS TOPICALLY FOUR ACTIVE TIMES A DAY FOR OSTEOARTHRITIS - USE DOSING CARD PROVIDED IN BOX APPLY TO HANDS 4) FERROUS SULFATE 325MG TAB TAKE ONE TABLET BY MOUTH ACTIVE ONCE DAILY TO SUPPLEMENT IRON 5) HYLAN G-F20 48MG/6ML INJ SYRINGE 6ML INJECT 48MG/6ML ACTIVE INTRA-ARTICULAR NEEDED DIRECTED BY PROVIDER 6) LISINOPRIL 10MG TAB TAKE ONE TABLET BY MOUTH ONCE ACTIVE DAILY TO CONTROL BLOOD PRESSURE 7) LUBRICATING (PF) OPH OINT APPLY THIN RIBBON INTO EACH ACTIVE EYE AT BEDTIME 8) METOPROLOL TARTRATE 50MG TAB TAKE ONE TABLET BY MOUTH ACTIVE TWICE DAILY FOR BLOOD PRESSURE/HEART 9) OMEPRAZOLE 20MG EC CAP TAKE ONE CAPSULE BY MOUTH ACTIVE EVERY MORNING 30 MINUTES BEFORE BREAKFAST 10) ROSUVASTATIN CA 40MG TAB TAKE ONE TABLET BY MOUTH ACTIVE ONCE DAILY FOR CHOLESTEROL 11) TAMSULOSIN HCL 0.4MG CAP TAKE ONE CAPSULE BY MOUTH ACTIVE ONCE DAILY FOR ENLARGED PROSTATE 12) TIMOLOL MALEATE 0.5% OPH SOLN INSTILL 1 DROP INTO ACTIVE EACH EYE EVERY MORNING Active Non-VA Medications Status 1) Non-VA ACETAMINOPHEN TAB 1300 BY MOUTH EVERY MORNING ACTIVE AND 650MG BY MOUTH EVERY EVENING 2) Non-VA ASPIRIN 81MG EC TAB 81MG BY MOUTH DAILY ACTIVE 3) Non-VA MULTIVITAMIN/MINERALS CAP/TAB 1 TABLET BY ACTIVE MOUTH EVERY MORNING 15 Total Medications Allergies: PENICILLIN, NAPROXEN, CORTISONE All medications including those prescribed by outside VA's, community providers, and all OTC meds were reviewed and reconciled with patient to the best of their abilities. This 88 year old MALE is seen today for IOP check, [employer] Attending Provider Note: Date of Last Exam: November 2022 Location: [facility] Chief Complaint: Patient states vision is doing well, stable. Reports good compliance with glaucoma medication and using as directed. Also continues lubricating gtts and ointment as well. Using Gómez mask 3-4x week which makes the eyes feel good. HISTORY AND REVIEW OF SYSTEMS: -Facial and ocular rosacea -Bilateral severe stage open-angle glaucoma -Scant macular drusen right eye -Bilateral pseudophakia (-) Pain: (-) ELIZALDE: (-) Diplopia: (-) Flashes: (-) Floaters: (-) Amaurosis Fugax/Tia's: (-) Eye Injury: (+) Eye Surgery: PC IOL OU w/ trabeculectomy, bilateral upper lid blepharoplasties (-) TBI (-) FOHx: (-) Smoker/Length of Time: DIABEIC: No NEW ALLERGIES TO REPORT: No EYE MEDICATION(S): Latanoprost 1 GTT OU QHS Timoptic 0.5% 1 GTT OU daily Lubricating ointment QHS OU Lubricating drops TID-QID OU Gómez Mask 3-4x week CURRENT RX WITH BCVA: OD:+1.25-1.25 x010 20/25 OS:+3.00-1.50 x105 20/30 Add:+2.50 20/25- DVA: ( )SC (x)CC ( )Phoropter ( )CL OD: 20/20-2 OS: 20/30-2 MANIFEST REFRACTION(MRx): Defer PUPILS: Appear ERRL(-)APD EOMS: Appear Full OU CVF: Appear FTFC OU INTRAOCULAR PRESSURE (IOP) METHOD: Goldmann Time: 2:33PM OD: 09 OS: 09 ANTERIOR CHAMBER (AC): Penlight or slit lamp (if available) exam appears unremarkable. Pupils are dilated. Dilation and driving precautions reviewed with patient and patient expresses understanding. Medication: 1% Tropicamide, 2.5% Phenylephrine OU Time: 2:38PM Visual Imaging Performed Today: Yes Additional Comments: /elizabeth/ Melody [facility] [employer] Signed: 07/30/2023 14:40 07/30/2023 ADDENDUM STATUS: COMPLETED Active problems - Computerized Problem List is the source for the followin. Hematuria (SCT 84081420) 2. Inflamed Seborrheic Keratosis (SCT 89483913) 3. Glaucoma 4. Chronic gastric ulcer 5. Obesity 6. Primary generalized osteoarthritis 7. Obstructive sleep apnea syndrome 8. Coronary arteriosclerosis 9. Benign essential hypertension (SNOMED CT 3565936) 10. HYPERLIPIDEMIA 11. 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 BPH W/O URINARY OBSTRUCT Active Outpatient Medications (including Supplies): Active Outpatient Medications Status 1) AMMONIUM LACTATE 12% LOTION APPLY MODERATE AMOUNT ACTIVE TOPICALLY ONCE DAILY FOR DRY IRRITATED SKIN 2) CARBOXYMETHYLCELLULOSE NA 0.5% OPH SOLN INSTILL 1 ACTIVE DROP INTO EACH EYE FOUR TIMES DAILY NEEDED FOR DRYNESS 3) DICLOFENAC NA 1% TOP GEL APPLY 2 GRAMS TOPICALLY FOUR ACTIVE TIMES A DAY FOR OSTEOARTHRITIS - USE DOSING CARD PROVIDED IN BOX APPLY TO HANDS 4) FERROUS SULFATE 325MG TAB TAKE ONE TABLET BY MOUTH ACTIVE ONCE DAILY TO SUPPLEMENT IRON 5) HYLAN G-F20 48MG/6ML INJ SYRINGE 6ML INJECT 48MG/6ML ACTIVE INTRA-ARTICULAR NEEDED DIRECTED BY PROVIDER 6) LISINOPRIL 10MG TAB TAKE ONE TABLET BY MOUTH ONCE ACTIVE DAILY TO CONTROL BLOOD PRESSURE 7) LUBRICATING (PF) OPH OINT APPLY THIN RIBBON INTO EACH ACTIVE EYE AT BEDTIME 8) METOPROLOL TARTRATE 50MG TAB TAKE ONE TABLET BY MOUTH ACTIVE TWICE DAILY FOR BLOOD PRESSURE/HEART 9) OMEPRAZOLE 20MG EC CAP TAKE ONE CAPSULE BY MOUTH ACTIVE EVERY MORNING 30 MINUTES BEFORE BREAKFAST 10) ROSUVASTATIN CA 40MG TAB TAKE ONE TABLET BY MOUTH ACTIVE ONCE DAILY FOR CHOLESTEROL 11) TAMSULOSIN HCL 0.4MG CAP TAKE ONE CAPSULE BY MOUTH ACTIVE ONCE DAILY FOR ENLARGED PROSTATE 12) TIMOLOL MALEATE 0.5% OPH SOLN INSTILL 1 DROP INTO ACTIVE EACH EYE EVERY MORNING Pending Outpatient Medications Status 1) LATANOPROST 0.005% OPH SOLN INSTILL 1 DROP INTO EACH PENDING EYE AT BEDTIME Active Non-VA Medications Status 1) Non-VA ACETAMINOPHEN TAB 1300 BY MOUTH EVERY MORNING ACTIVE AND 650MG BY MOUTH EVERY EVENING 2) Non-VA ASPIRIN 81MG EC TAB 81MG BY MOUTH DAILY ACTIVE 3) Non-VA MULTIVITAMIN/MINERALS CAP/TAB 1 TABLET BY ACTIVE MOUTH EVERY MORNING 16 Total Medications Allergies: PENICILLIN, NAPROXEN, CORTISONE All medications including those prescribed by outside VA's, community providers, and all OTC meds were reviewed and reconciled with patient to the best of their abilities. This 88 year old MALE is seen today for follow-up care. Medical, eye, personal, and social history are all reviewed and is contributory to today's visit for bilateral severe stage open-angle glaucoma left greater than right eye as well as bilateral pseudophakia. His last eye examination was here on December 18, 2022. He reports good compliance and persistency with use of his glaucoma medications which consists of latanoprost at bedtime and Timoptic 0.5% daily. He also utilizes warm compresses with a Gómez mask and lid scrubs daily as well as use of lubricating drops during the day and gel ointment at bedtime. (-) Pain: (-) ELIZALDE: (-) Diplopia: (-) Flashes: (-) Floaters: (-) Amaurosis Fugax/Tia's: (-) Eye Injury: (+) Eye Surgery: Bilateral pseudophakia and trabeculectomy Bilateral upper lid blepharoplasty (-) TBI: Chief Complaint: He presents today for follow-up not voicing any interval visual or ocular changes since his last exam. +++++++++++++++++++++++++++++++ +++++++++++++++++++++++++++++++ ++++++++++++++++++ +++++++++++++++++++++++++++++++ +++++++++++++++++++++++++++++++ +++++++++++++ Patient history, chief complaint, visual acuity, entrance testing and tonometry all performed by area intelligence technician and reviewed now by attending provider. Dilation drops instilled by area intelligence technician after angle assessment with dilation warning given and verbal consent obtained. +++++++++++++++++++++++++++++++ +++++++++++++++++++++++++++++++ ++++++++++++++++++ +++++++++++++++++++++++++++++++ +++++++++++++++++++++++++++++++ ++++++++++++++++++ Pachymetry: Previously measured 563 ??m right eye 579 ??m left eye Pretreatment IOP and T-max unknown each eye Rosacea facies Anterior segment: Lids: Dermatochalasis With ptosis with meibomian gland dysfunction all 4 lids as well as 2+ lower lid bags Conj: Trace chronic injection each eye flat Superior bleb with pigment right eye cystic avascular bleb left eye Cornea: Trace SPK with instantaneous tear break-up time each eye AC: 3+ quiet each eye Iris: Normal each eye Lens: PCIOL each eye Vit: Clear each eye Fundus exam: Dilated:xxx Non dilated: C/D: Glaucomatous cupping with disc pallor with superior greater than inferior rim loss each eye Macula: Normal right eye trace RPE mottling with scant fine drusen left eye but no evidence of subretinal fluid, subretinal blood, exudate or thickening either eye A/V: 1/3 each eye Vessels: Somewhat attenuated each eye Periphery: No holes, tears, detachments each eye Impression: Bilateral severe stage open-angle glaucoma status post combined cataract surgery with trabeculectomy and stable intraocular pressure at target of 10 mm or less on latanoprost at bedtime and Timoptic 0.5% daily each eye. Visual field testing repeated today with questionable mild progression right eye and stable field left eye. Bilateral pseudophakia looks perfect. No change in glasses indicated at present. Facial and ocular rosacea exacerbating dry eye disease but under good control with use of warm compresses and lid scrubs as well as lubricating drops and lubricating ointment. Continue Gómez mask daily with lid scrubs with frequent use of lubricating drops during the day and gel drops at bedtime. Plan: Patient education as noted above reviewed exam findings now. Continue latanoprost at bedtime each eye which is renewed now for mail out and Timoptic 0.5% daily each eye. He understands his eye pressures under excellent control and overall visual malik look relatively stable with questionable mild early progression right eye but stable field left eye. Even with well- controlled eye pressure with advanced disease patient still can experience progressive field loss. He indicates he understands. Glaucoma: Patient was educated regarding glaucoma/glaucoma suspect as well as the natural history of this diagnosis including prognosis. Stress importance of compliance and persistency with glaucoma medication when prescribed, timely follow up as well as the role of ancillary testing. Exclusion criteria for ancillary testing include significantly reduced acuity, mental status changes affecting the patient's ability to attend to the test or other physical limitations that would prohibit the patient's ability to participate in testing. Education: Glaucoma: Patient was educated regarding glaucoma/glaucoma suspect as well as the natural history of this diagnosis including prognosis. Stress importance of compliance and persistency with glaucoma medication when prescribed, timely follow up as well as the role of ancillary testing. Exclusion criteria for ancillary testing include significantly reduced acuity, mental status changes affecting the patient's ability to attend to the test or other physical limitations that would prohibit the patient's ability to participate in testing. Return to Clinic: 6 months for comprehensive exam with dilation or sooner if need be. Ophthalmic medication reconciliation: Latanoprost at bedtime each eye Timoptic 0.5% daily each eye Lubricating drops every 3 hours while awake Lubricating gel ointment at bedtime Medication Reconciliation: Outpatient: Has the patient been taking medications as documented in the EMLR? YES: The patient has been taking medications as documented in the EMLR. Essential Medication List for Review used to complete this medication reconciliation. INCLUDED IN THIS LIST: Alphabetical list of active outpatient prescriptions dispensed from this [place] (local) and dispensed from another [place] or [facility] facility (remote) as well as inpatient orders (local, pending and active), local clinic medications, locally documented non-VA medications, and local prescriptions that have or been discontinued in the past 90 days. - All changes in medications, including all non-VA/Herbal/OTC medications were entered into CPRS. - If there were any medications the patient should no longer take, they were discontinued. - The patient/caregiver was instructed to update this list, discard old lists, and take this list to the next appointment, whether with a VA or non-VA provider. Medication List: JLV Link Data on this list may not be complete. Please check JLV. Allergies/ADRs (Tool #5) FACILITY ALLERGY/ADR -------- No Remote Allergy/ADR Data available for this patient [place] [facility] [place] [facility] [place] [facility] [place] [facility] Med. Reconciliation (Tool #1) INCLUDED IN THIS LIST: Alphabetical list of active outpatient prescriptions dispensed from this MA (local) and dispensed from another MA or [facility] facility (remote) as well as inpatient orders (local pending and active), local clinic medications, locally documented non-VA medications, and local prescriptions that have or been discontinued in the past 90 days. Non-VA Meds Last Documented On: Jun 10, 2023 NOTE The display of VA prescriptions dispensed from another MA or [facility] facility (remote) is limited to active outpatient prescription entries matched to National Drug File at the originating site and may not include some items such as investigational drugs, compounds, etc. NOT INCLUDED IN THIS LIST: Medications self-entered by the patient into personal health records (i.e. [facility]) are NOT included in this list. Non-VA medications documented outside this MA, remote inpatient orders (regardless of status) and remote clinic medications are NOT included in this list. The patient and provider must always discuss medications the patient is taking, regardless of where the medication was dispensed or obtained. Non-VA ACETAMINOPHEN TAB TAKE 1300 BY MOUTH EVERY MORNING AND TAKE 650MG BY MOUTH EVERY EVENING Non-VA medication recommended by VA provider. OUTPT AMMONIUM LACTATE 12% LOTION (Status = Active) APPLY MODERATE AMOUNT TOPICALLY ONCE DAILY FOR DRY IRRITATED SKIN Rx# [id number] Last Released: 07/24/23 Qty/Days Supply: Rx Expiration Date: 11/04/23 Refills Remainin Indication: FOR DRY SKIN Non-VA ASPIRIN 81MG EC TAB TAKE ONE TABLET BY MOUTH DAILY OUTPT CARBOXYMETHYLCELLULOSE NA 0.5% OPH SOLN (Status = Discontinued) INSTILL 1 DROP INTO EACH EYE TWICE DAILY NEEDED FOR DRYNESS Rx# [id number] Last Released: 05/20/23 Qty/Days Supply: Rx Expiration Date: 05/17/24 Refills Remainin OUTPT CARBOXYMETHYLCELLULOSE NA 0.5% OPH SOLN (Status = Active) INSTILL 1 DROP INTO EACH EYE FOUR TIMES DAILY NEEDED FOR DRYNESS Rx# [id number] Last Released: 06/09/23 Qty/Days Supply: Rx Expiration Date: 06/02/24 Refills Remainin Indication: FOR DRY EYE OUTPT DICLOFENAC NA 1% TOP GEL (Status = Active) APPLY 2 GRAMS TOPICALLY FOUR TIMES A DAY FOR OSTEOARTHRITIS - USE DOSING CARD PROVIDED IN BOX APPLY TO HANDS Rx# [id number] Last Released: 01/27/23 Qty/Days Supply: Rx Expiration Date: 01/23/24 Refills Remainin Indication: FOR OSTEOARTHRITIS OUTPT FERROUS SULFATE 325MG TAB (Status = Active) TAKE ONE TABLET BY MOUTH ONCE DAILY TO SUPPLEMENT IRON Rx# [id number] Last Released: 07/13/23 Qty/Days Supply: Rx Expiration Date: 10/10/23 Refills Remainin OUTPT FLUTICASONE PROP 50MCG 120D NASAL INHL (Status = Discontinued) INSTILL 1 SPRAY INTO EACH NOSTRIL TWICE DAILY FOR NASAL IRRITATION/INFLAMMATION Rx# [id number] Last Released: 03/02/23 Qty/Days Supply: 06/30 Rx Expiration Date: 03/02/24 Refills Remainin OUTPT HYLAN G-F20 48MG/6ML INJ SYRINGE 6ML (Status = Active) INJECT 48MG/6ML INTRA-ARTICULAR NEEDED DIRECTED BY PROVIDER Rx# [id number] Last Released: 07/23/23 Qty/Days Supply: Rx Expiration Date: 01/16/24 Refills Remainin OUTPT LATANOPROST 0.005% OPH SOLN (Status = Discontinued) INSTILL 1 DROP INTO EACH EYE AT BEDTIME FOR INCREASED PRESSURE IN THE EYE Rx# [id number] Last Released: 03/09/23 Qty/Days Supply: Rx Expiration Date: 06/02/23 Refills Remainin Indication: FOR INCREASED PRESSURE IN THE EYE OUTPT LATANOPROST 0.005% OPH SOLN (Status = Active/Suspended) INSTILL 1 DROP INTO EACH EYE AT BEDTIME FOR INCREASED PRESSURE IN THE EYE Rx# [id number] Last Released: Qt/Days Supply: Rx Expiration Date: 10/28/23 Refills Remainin Indication: FOR INCREASED PRESSURE IN THE EYE OUTPT LISINOPRIL 10MG TAB (Status = Active) TAKE ONE TABLET BY MOUTH ONCE DAILY TO CONTROL BLOOD PRESSURE Rx# [id number] Last Released: 06/23/23 Qty/Days Supply: Rx Expiration Date: 03/02/24 Refills Remainin OUTPT LUBRICATING (PF) OPH OINT (Status = Active) APPLY THIN RIBBON INTO EACH EYE AT BEDTIME Rx# [id number] Last Released: 07/21/23 Qty/Days Supply: Rx Expiration Date: 03/04/24 Refills Remainin OUTPT METOPROLOL TARTRATE 50MG TAB (Status = Active/Suspended) TAKE ONE TABLET BY MOUTH TWICE DAILY FOR BLOOD PRESSURE/HEART Rx# [id number] Last Released: 05/05/23 Qty/Days Supply: Rx Expiration Date: 02/01/24 Refills Remainin Non-VA MULTIVITAMIN/MINERALS CAP/TAB TAKE ONE TABLET BY MOUTH EVERY MORNING OUTPT OMEPRAZOLE 20MG EC CAP (Status = Active/Suspended) TAKE ONE CAPSULE BY MOUTH EVERY MORNING 30 MINUTES BEFORE BREAKFAST Rx# [id number] Last Released: 05/05/23 Qty/Days Supply: Rx Expiration Date: 10/30/23 Refills Remainin OUTPT ROSUVASTATIN CA 40MG TAB (Status = Active) TAKE ONE TABLET BY MOUTH ONCE DAILY FOR CHOLESTEROL Rx# [id number] Last Released: 07/13/23 Qty/Days Supply: Rx Expiration Date: 10/30/23 Refills Remainin Indication: FOR HIGH CHOLESTEROL OUTPT TAMSULOSIN HCL 0.4MG CAP (Status = Discontinued) TAKE ONE CAPSULE BY MOUTH ONCE DAILY Rx# [id number] Last Released: 05/14/23 Qty/Days Supply: Rx Expiration Date: 03/05/24 Refills Remainin OUTPT TAMSULOSIN HCL 0.4MG CAP (Status = Active) TAKE ONE CAPSULE BY MOUTH ONCE DAILY FOR ENLARGED PROSTATE Rx# [id number] Last Released: 06/09/23 Qty/Days Supply: Rx Expiration Date: 06/02/24 Refills Remainin Indication: FOR ENLARGED PROSTATE OUTPT TIMOLOL MALEATE 0.5% OPH SOLN (Status = Active) INSTILL 1 DROP INTO EACH EYE EVERY MORNING Rx# [id number] Last Released: 05/14/23 Qty/Days Supply: Rx Expiration Date: 03/04/24 Refills Remainin SUPPLIES PHARMACY TERMS AND POSSIBLE PATIENT ACTIONS INPT = MA inpatient order IV = MA intravenous medication OUTPT = [place] outpatient prescription PHARMACY POSSIBLE PATIENT TERMS EXPLANATION ACTIONS -------- - ACTIVE A prescription that can be If you have refills, filled at the local [place] pharmacy. you may request a refill of this prescription from your [place] pharmacy. CLINIC A medication you received during If you have questions a visit to a [place] clinic or about this medication emergency department. contact your [place] healthcare team. DISCONTINUED A prescription your provider has Contact your [place] stopped. It is no longer healthcare team if you available to be sent to you or need more of this picked up at the [place] pharmacy medication. window. A prescription which is too old Contact your VA to fill. This does not refer to healthcare team if you the expiration date of the need more of this medication in the container. medication. NON-VA A medication that came from If this medication someplace other than a VA information is pharmacy. This may be a incorrect or out of prescription from either the VA date, please tell your or non VA providers that was VA healthcare team. filled outside the VA. Or, it may be an jmle-wed-wcisnwj (OTC), herbal, dietary supplements or sample medication. ON HOLD An active prescription that will Contact your VA not be filled until pharmacy pharmacy when you need resolves the issue. more of this medication. PARKED An active prescription that will Contact your VA not be filled until the patient pharmacy when you need requests it. this medication. PENDING This prescription order has been If you have been sent to the pharmacy for review instructed to start and is not ready yet. this medication now, contact your VA pharmacy. SUSPENDED An active prescription that is Contact your VA not scheduled to be filled yet. pharmacy if you need You should receive it before this medication now. you run out. ==== Declines printed copy of medication list now. /elizabeth/ Gerard Fregoso OD CHIEF OF OPTOMETRY Signed: 07/31/2023 16:14 MELODY KING [place] [facility]
--- OUTSIDE RECORDS SUMMARY | 2024-05-16 14:04 | XMS_ITS | Encounter Summary ---
Author Name [facility] [place] [facility] [facility] [place] Address [address] [place] [address] Care Team Providers Care Director Occupational Name Role Phone KIARA ESPARZA Primary Care [...] Colbert's Name Patient's Relationship to Policy Colbert [facility] (WNR) MEDICARE [facility] (WNR) Jun 01, 2017 [id number] [phone] Krishan TATE PATIENT [facility] (WNR) [facility]ICARE [facility] (WNR) Jun 01, 2017 [id number] [phone] Krishan TATE PATIENT [facility] (WNR) [facility] (WNR) Jun 01, 2017 [id number] Krishan TATE PATIENT Selected Encounter This section includes the information on record at [place] for the Encounter. Date/Time Encounter Type Encounter Description Reason Pro vider Source Jul 09, 2023 10:46 AM Outpatient Encounter EVENT (HISTORICAL) IHE Encounter Template Text not used by [place] Plan of Treatment: Future Appointments (+ 6 months) and Future Tests (+/- 45 days) The Plan of Treatment section includes future care activities for the patient from all [place] treatmentfacilities. This section includes future appointments and future orders which are active, pending or scheduled. Future Appointments This section includes appointments that were scheduled to occur 6 months from the date of the Encounter, up to a maximum of 20 appointments. The data comes from all [place] treatment facilities. Appointment Date/Time Appointment Type Appointme nt Facility Name Jul 30, 2023 02:00 PM AMBULATORY - MEDICINE [place] [facility] [place] [facility] Jul 30, 2023 02:15 PM AMBULATORY - MEDICINE [place] [facility] [place] [facility] Jul 30, 2023 02:30 PM AMBULATORY - MEDICINE [place] [facility] [place] [facility] Aug 04, 2023 02:00 PM AMBULATORY - MEDICINE [place] [facility] [place] [facility] Aug 07, 2023 09:30 AM AMBULATORY - MEDICINE [place] [facility] [place] [facility] Aug 17, 2023 11:30 AM AMBULATORY - MEDICINE [place] [facility] [place] [facility] Aug 26, 2023 01:00 PM AMBULATORY - MEDICINE [place] [facility] [place] [facility] Sep 28, 2023 10:30 AM AMBULATORY - MEDICINE [place] [facility] [place] [facility] Nov 02, 2023 11:30 AM AMBULATORY - MEDICINE [place] [facility] [place] [facility] Dec 22, 2023 11:10 AM AMBULATORY - MEDICINE [place] [facility] [place] [facility] Jan 06, 2024 10:40 AM AMBULATORY - MEDICINE [place] [facility] [place] [facility] Lab Results: +/- 30 days of the encounter This section includes the Chemistry and Hematology Lab Results on record with [place] for the patient. Radiology Reports and Pathology Reports are provided separately, in subsequent sections. Lab Results This section contains the Chemistry/Hematology Results that were resulted 30 days before or 30 daysafter the date of the Encounter. Date/Time Source Result Type Result - Unit Interpretation Reference Range Comment Aug 07, 2023 08:13 AM [facility] VITAMIN D (25-OH) Specimen Type: SERUM No comment entered. Ordering Provider: BRITTNEY ESPARZA Report Released Date/Time: Jul 30, 2023 03:58 PM Reporting Lab: [address] [address] Performing Lab: [facility] [address] VITAMIN D (25-OH) 44 ng/mL 20-50 Aug 07, 2023 08:12 AM [facility] LIPID PANEL FASTING Specimen Type: SERUM No comment entered. Ordering Provider: BRITTNEY ESPARZA Report Released Date/Time: Jun 04, 2023 12:30 PM Reporting Lab: [facility] [address] Performing Lab: [facility] [address] CHOLESTEROL 120 mg/dL TRIGLYCERIDE 189 mg/dL H 0-150 LDL calculated 45 mg/dL 0-129 CHOL/HDL 3.2 HDL CHOLESTEROL 37 mg/dL L 40-60 Aug 07, 2023 08:12 AM [facility] LIVER FUNCTION Specimen Type: SERUM No comment entered. Ordering Provider: BRITTNEY ESPARZA Report Released Date/Time: Jun 04, 2023 12:30 PM Reporting Lab: [facility] [address] [address] Performing Lab: [address] [address] PROTEIN,TOTAL 6.5 g/dL 6.0-8.3 ALBUMIN 4.0 g/dL 3.5-5.0 ALKALINE PHOSPHATASE 49 U/L 40-150 AST 16 U/L 5-34 ALT 20 U/L BILIRUBIN, TOTAL 0.4 mg/dL 0.2-1.2 Aug 07, 2023 08:12 AM [facility] BASIC METABOLIC PANEL (fasting) Specimen Type: SERUM No comment entered. Ordering Provider: BRITTNEY ESPARZA Report Released Date/Time: Jun 04, 2023 12:30 PM Reporting Lab: [facility] [address] [address] Performing Lab: [facility] [address] [address] UREA NITROGEN 15 mg/dL 7-25 GLUCOSE 106 mg/dL H 65-100 SODIUM 140 mmol/L 135-145 POTASSIUM 4.5 mmol/L 3.5-5.0 CHLORIDE 107 mmol/L 100-110 CO2 26 meq/L 20-30 CREATININE, Serum 0.82 mg/dL 0.50-1.40 eGFR(CKD-EPI 2020) 85 mL/min >60 Aug 07, 2023 08:12 AM [facility] VITAMIN B-1 (THIAMINE)-(QU) Specimen Type: PLASMA Comment: Vitamin supplementation within 24 hours prior to blood draw may affect the accuracy of the results. This test was developed and its analytical performance characteristics have been determined by [facility] [place], [place]. It has not been cleared or approved by the U.S. Food and Drug Administration. This assay has been validated pursuant to the CLIA regulations and is used for clinical purposes. Test Performed by [facility], [facility], [address] [place] [address] Dami Potts M.D., Ph.D., Director of Laboratories , CLIA [id number] TEST PERFORMED AT: , Ordering Provider: BRITTNEY ESPARZA Report Released Date/Time: Jul 30, 2023 03:58 PM Reporting Lab: [address] [address] Performing Lab: [place] [id number] [address] VITAMIN B-1 (THIAMINE)-(Q U) 29 nmol/L 8-30 Aug 07, 2023 08:12 AM [facility] FOLATE Specimen Type: SERUM No comment entered. Ordering Provider: BRITTNEY ESPARZA Report Released Date/Time: Jul 30, 2023 03:58 PM Reporting Lab: [facility]ITALRTAN[facility] AL[facility]AMATRN [facility]ITAL[facility] [address] [address] Performing Lab: [place] [facility] [place] [facility] [address] [address] FOLATE 14.70 ng/mL >5.2 Aug 07, 2023 08:12 AM [facility]ITALRL [facility] TSH Specimen Type: SERUM No comment entered. Ordering Provider: BRITTNEY ESPARZA Report Released Date/Time: Jul 30, 2023 03:58 PM Reporting Lab: [facility]OSPITALRHARTSELLE MEDICAL CENTERN [facility]USE[address] [address] Performing Lab: [facility]ITALRHARTSELLE [facility] CENTERN [facility] [address] TSH 2.25 u[IU]/mL 0.35-5.00 Aug 07, 2023 08:12 AM [facility] VITAMIN B12 Specimen Type: SERUM No comment entered. Ordering Provider: BRITTNEY ESPARZA Report Released Date/Time: Jul 30, 2023 03:58 PM Reporting Lab: [facility]ITALRTAN[facility] AL[facility]AMATRN [facility]ITALUSETS [address] [address] Performing Lab: [facility]OSPITALRHARTSELLE MEDICAL CENTERN [facility]USE[address] [address] VITAMIN B12 552 pg/mL 200-900 Aug 07, 2023 08:12 AM [facility] IRON & TIBC PANEL Specimen Type: SERUM No comment entered. Ordering Provider: BRITTNEY ESPARZA Report Released Date/Time: Jul 30, 2023 03:58 PM Reporting Lab: [facility]ITALRTAN[facility] AL[facility]AMATRN [facility]PITALUSETS [address] [address] Performing Lab: [facility]ITALRTANNER [facility] AL[facility]AMATRN [facility]ITALUSETS [address] [address] TIBC 408 ug/dL 204-475 IRON 59 ug/dL 40-160 Transferrin Saturation 14.5 L 20.0-50.0 Aug 07, 2023 08:12 AM [facility] CBC AND DIFF (AUTO) Specimen Type: BLOOD No comment entered. Ordering Provider: BRITTNEY ESPARZA Report Released Date/Time: Jul 30, 2023 03:58 PM Reporting Lab: [facility] [address] [address] Performing Lab: [facility] [address] [address] WBC 5.36 10*3/uL 4.50-11.00 RBC 4.97 10*6/uL 4.23-5.66 HGB 14.7 g/dL 12.8-17 HCT 44.9 39.2-50.4 MCV 90.3 fL 82-99 MCHC 32.7 g/dL 30.8-35.1 PLT 273 10*3/uL 140-360 RDW-CV 13.0 12.0-16.0 Henderson, Abs 0.59 10*3/uL 0.30-1.10 MCH 29.6 pg 26.2-32.6 Neut % 70.0 43.7-75.8 Lymph % 14.9 14.0-42.3 Henderson % 11.0 5.1-13.7 Eos % 3.2 0.4-6.8 Baso % 0.7 0.1-2.0 Neut, Abs 3.75 10*3/uL 2.20-7.60 Lymph, Abs 0.80 10*3/uL L 1.00-3.20 Eos, Abs 0.17 10*3/uL 0.03-0.44 Baso, Abs 0.04 10*3/uL 0.01-0.13 Immature Gran % 0.2 0.0-0.7 Immature Gran, Abs 0.01 10*3/uL 0.00-0.06 Vital Signs: All taken on the encounter date This section contains inpatient and outpatient Vital Signs collected on the date of the Encounter. Date/Time Temperature Pulse Blood Pressure Respiratory Rate SP02 Pain Height Weight Body Mass Index Source Jul 09, 2023 10:33 AM 150/90 2 [facility] Social History: Smoking Status (Most current) and Tobacco Use (All prior to encounter date) This section includes the most current, and the historical, smoking and tobacco- related health factors from the [place] facility where the Encounter took place. Current Smoking Status This section includes the most current smoking, or tobacco-related health factor, from the [place] facility where the Encounter took place. Date/Time Current Smoking Status Comment Jagruti it Oct 31, 2022 11:30 AM VA-TOBACCO FORMER USER [place] [facility] [place] [facility] Tobacco Use History This section includes a history of the smoking, or tobacco-related health factors, that were collected on or before the date of the Encounter. The data comes from the [place] facility where the Encounter took place. Date/Time Smoking Status/Tobac co Use Comment Facility Oct 31, 2022 11:30 AM VA-TOBACCO QUIT 15 YRS OR MORE [place] [facility] [place] [facility] Sep 17, 2021 03:00 PM VA-TOBACCO FORMER USER [place] [facility] [place] [facility] Sep 17, 2021 03:00 PM VA-TOBACCO QUIT 15 YRS OR MORE [facility] [place] [facility] Aug 15, 2020 10:00 AM VA-TOBACCO FORMER USER [place] [facility] [place] [facility] Aug 15, 2020 10:00 AM VA-TOBACCO QUIT 15 YRS OR MORE [place] [facility] [place] [facility] May 12, 2019 03:07 PM VA-TOBACCO FORMER USER [place] [facility] [place] [facility] May 12, 2019 03:07 PM VA-TOBACCO QUIT 15 YRS OR MORE [place] [facility] [place] [facility] May 31, 2018 01:08 PM VA-TOBACCO FORMER USER [facility] [place] [facility] May 31, 2018 01:08 PM VA-TOBACCO QUIT 15 YRS OR MORE [facility] [place] [facility] Feb 16, 2017 01:33 PM QUIT TOBACCO USE > 7 YEARS AGO quit 16 years ago [facility] [place] [facility] Nov 13, 2015 03:48 PM QUIT TOBACCO USE > 7 YEARS AGO . [facility] [place] [facility] May 12, 2013 12:49 PM QUIT TOBACCO USE > 7 YEARS AGO quit 2001 [place] [facility] [place] [facility] Advance Directives: All historical and current Section Date Range: From patient's date of to the date document was created. This section includes ALL of a patient's completed or amended [place] Advance and Rescinded Directives. The entries below indicate that a directive exists for the patient, but an actual copy is not included with this document. The data comes from all [place] facilities. Date Advance Directives Provider Source Nov 03, 2022 ADVANCE DIRECTIVE LENORA CARCAM[facility] Aug 16, 2020 ADVANCE DIRECTIVE EDMUND MORGAN [facility]
--- OUTSIDE RECORDS SUMMARY | 2024-05-16 14:04 | XMS_ITS | Encounter Summary ---
Author Name [facility] [place] [facility] [place] Address [address] [place] [address] Care Team Providers Care Machine Feeder Raw Stock Name Role Phone KIARA ESPARZA Primary Care [...] [facility] (WNR) MEDICARE ADVANTAGE [facility] (WNR) Jun 01, 2017 [id number] Krishan TATE PATIENT [facility] (WNR) MEDICARE ADVANTAGE [facility] (WNR) Jun 01, 2017 [id number] Krishan TATE PATIENT [facility] (WNR) MEDICARE ADVANTAGE [facility] (WNR) Jun 01, 2017 [id number] Krishan TATE PATIENT Selected Encounter This section includes the information on record at [place] for the Encounter. Date/Time Encounter Type Encounter Description Reason Provider Source Aug 07, 2023 09:30 AM OFFICE O/P EST MOD 30 MIN RHEUMATOLOGY/ARTH RITIS ICD-10-CM M15.0 Primary generalized (osteo)arthritis IHE Encounter Template Text not used by [place] Assessments - Encounter Diagnoses This section includes the primary and secondary diagnoses documented for the Encounter. Date/Time Primary/Secondary Diagnosis Diagnosis Name Provider Source Aug 21, 2023 07:15 AM PRIMARY Primary generalized (osteo)arthritis JOSE LUIS Tesfaye [facility] [place] [facility] Aug 21, 2023 07:15 AM SECONDARY Morbid (severe) obesity due to excess calories LY P [facility] [place] [facility] Plan of Treatment: Future Appointments (+ 6 months) and Future Tests (+/- 45 days) The Plan of Treatment section includes future care activities for the patient from all [place] [facility]. This section includes future appointments and future orders which are active, pending or scheduled. Future Appointments This section includes appointments that were scheduled to occur 6 months from the date of the Encounter, up to a maximum of 20 appointments. The data comes from all [place] treatment facilities. Appointment Date/Time Appointment Type Appointme nt Facility Name Aug 17, 2023 11:30 AM AMBULATORY - MEDICINE [place] [facility] [place] [facility] Aug 26, 2023 01:00 PM AMBULATORY - MEDICINE [facility] [place] [facility] Sep 28, 2023 10:30 AM AMBULATORY - MEDICINE [facility] [place] [facility] Nov 02, 2023 11:30 AM AMBULATORY - MEDICINE [facility] [place] [facility] Dec 22, 2023 11:10 AM AMBULATORY - MEDICINE [facility] [place] [facility] Jan 06, 2024 10:40 AM AMBULATORY - MEDICINE [facility] [place] [facility] Jan 12, 2024 02:30 PM AMBULATORY - MEDICINE [facility] [place] [facility] Jan 25, 2024 10:30 AM AMBULATORY - MEDICINE [facility] [place] [facility] Feb 05, 2024 11:00 AM [facility] Lab Results: +/- 30 days of the encounter This section includes the Chemistry and Hematology Lab Results on record with [place] for the patient. Radiology Reports and Pathology Reports are provided separately, in subsequent sections. Lab Results This section contains the Chemistry/Hematology Results that were resulted 30 days before or 30 daysafter the date of the Encounter. Date/Time Source Result Type Result - Unit Interpretation Reference Range Comment Aug 07, 2023 08:13 AM [facility] VITAMIN D (25-OH) Specimen Type: SERUM No comment entered. Ordering Provider: BRITTNEY ESPARZA Report Released Date/Time: Jul 30, 2023 03:58 PM Reporting Lab: [address] [address] Performing Lab: [address] [address] VITAMIN D (25-OH) 44 ng/mL 20-50 Aug 07, 2023 08:12 AM [facility] LIPID PANEL FASTING Specimen Type: SERUM No comment entered. Ordering Provider: BRITTNEY ESPARZA Report Released Date/Time: Jun 04, 2023 12:30 PM Reporting Lab: [facility] [address] Performing Lab: [facility] [address] CHOLESTEROL 120 mg/dL TRIGLYCERIDE 189 mg/dL H 0-150 LDL calculated 45 mg/dL 0-129 CHOL/HDL 3.2 HDL CHOLESTEROL 37 mg/dL L 40-60 Aug 07, 2023 08:12 AM [facility] LIVER FUNCTION Specimen Type: SERUM No comment entered. Ordering Provider: BRITTNEY ESPARZA Report Released Date/Time: Jun 04, 2023 12:30 PM Reporting Lab: [facility] [address] Performing Lab: [address] [address] PROTEIN,TOTAL 6.5 g/dL 6.0-8.3 ALBUMIN 4.0 g/dL 3.5-5.0 ALKALINE PHOSPHATASE 49 U/L 40-150 AST 16 U/L 5-34 ALT 20 U/L BILIRUBIN, TOTAL 0.4 mg/dL 0.2-1.2 Aug 07, 2023 08:12 AM [facility] BASIC METABOLIC PANEL (fasting) Specimen Type: SERUM No comment entered. Ordering Provider: BRITTNEY ESPARZA Report Released Date/Time: Jun 04, 2023 12:30 PM Reporting Lab: [address] [address] Performing Lab: [address] [address] UREA NITROGEN 15 mg/dL 7-25 GLUCOSE 106 mg/dL H 65-100 SODIUM 140 mmol/L 135-145 POTASSIUM 4.5 mmol/L 3.5-5.0 CHLORIDE 107 mmol/L 100-110 CO2 26 meq/L 20-30 CREATININE, Serum 0.82 mg/dL 0.50-1.40 eGFR(CKD-EPI 2020) 85 mL/min >60 Aug 07, 2023 08:12 AM [facility] VITAMIN B-1 (THIAMINE)-(QU) Specimen Type: PLASMA Comment: Vitamin supplementation within 24 hours prior to blood draw may affect the accuracy of the results. This test was developed and its analytical performance characteristics have been determined by [employer] ([facility], [place]. It has not been cleared or approved by the U.S. Food and Drug Administration. This assay has been validated pursuant to the CLIA regulations and is used for clinical purposes. Test Performed by [facility], [employer] [facility], [address] [place] [address] Dami Potts M.D., Ph.D., Director of Laboratories , CLIA [id number] TEST PERFORMED AT: , Ordering Provider: BRITTNEY ESPARZA Report Released Date/Time: Jul 30, 2023 03:58 PM Reporting Lab: [address] [address] Performing Lab: [facility] [place] [facility] [address] [address] VITAMIN B-1 (THIAMINE)-(Q U) 29 nmol/L 8-30 Aug 07, 2023 08:12 AM [facility] FOLATE Specimen Type: SERUM No comment entered. Ordering Provider: BRITTNEY ESPARZA Report Released Date/Time: Jul 30, 2023 03:58 PM Reporting Lab: [facility] [place] [facility] [address] [facility] [address] Performing Lab: [facility] [address] [facility] [address] FOLATE 14.70 ng/mL >5.2 Aug 07, 2023 08:12 AM [facility] TSH Specimen Type: SERUM No comment entered. Ordering Provider: BRITTNEY ESPARZA Report Released Date/Time: Jul 30, 2023 03:58 PM Reporting Lab: [facility] [place] [facility] [address] [facility] [address] Performing Lab: [facility] [place] [facility] [address] [facility] [address] TSH 2.25 u[IU]/mL 0.35-5.00 Aug 07, 2023 08:12 AM [facility] VITAMIN B12 Specimen Type: SERUM No comment entered. Ordering Provider: BRITTNEY ESPARZA Report Released Date/Time: Jul 30, 2023 03:58 PM Reporting Lab: [facility] [place] [facility] [address] [facility] [address] Performing Lab: [facility] [address] [facility] [address] VITAMIN B12 552 pg/mL 200-900 Aug 07, 2023 08:12 AM [facility] IRON & TIBC PANEL Specimen Type: SERUM No comment entered. Ordering Provider: BRITTNEY ESPARZA Report Released Date/Time: Jul 30, 2023 03:58 PM Reporting Lab: [facility] [place] [facility] [address] [facility] [address] Performing Lab: [facility] [address] [facility] [address] TIBC 408 ug/dL 204-475 IRON 59 ug/dL 40-160 Transferrin Saturation 14.5 L 20.0-50.0 Aug 07, 2023 08:12 AM [facility] CBC AND DIFF (AUTO) Specimen Type: BLOOD No comment entered. Ordering Provider: BRITTNEY ESPARZA Report Released Date/Time: Jul 30, 2023 03:58 PM Reporting Lab: [facility] [address] [facility] [address] Performing Lab: [facility] [address] [facility] [address] WBC 5.36 10*3/uL 4.50-11.00 RBC 4.97 10*6/uL 4.23-5.66 HGB 14.7 g/dL 12.8-17 HCT 44.9 39.2-50.4 MCV 90.3 fL 82-99 MCHC 32.7 g/dL 30.8-35.1 PLT 273 10*3/uL 140-360 RDW-CV 13.0 12.0-16.0 [place], Abs 0.59 10*3/uL 0.30-1.10 MCH 29.6 pg 26.2-32.6 Neut % 70.0 43.7-75.8 Lymph % 14.9 14.0-42.3 [place] % 11.0 5.1-13.7 Eos % 3.2 0.4-6.8 [...] Pain Height Weight Body Mass Index Source Aug 07, 2023 09:43 AM 142/76 [facility] [place] [facility] Aug 07, 2023 08:54 AM 97.2 54 181/74 16 95 4 210 37 [facility] [place] [facility] Social History: Smoking Status (Most current) and Tobacco Use (All prior to encounter date) This section includes the most current, and the historical, smoking and tobacco- related health factors from the [place] facility where the Encounter took place. Current Smoking Status This section includes the most current smoking, or tobacco-related health factor, from the [place] facility where the Encounter took place. Date/Time Current Smoking Status Comment [facility] Oct 31, 2022 11:30 AM VA-TOBACCO FORMER USER [facility] [place] [facility] Tobacco Use History This section includes a history of the smoking, or tobacco-related health factors, that were collected on or before the date of the Encounter. The data comes from the [place] facility where the Encounter took place. Date/Time Smoking Status/Tobac co Use Comment [facility] Oct 31, 2022 11:30 AM VA-TOBACCO QUIT 15 YRS OR MORE [facility] [place] [facility] Sep 17, 2021 03:00 PM VA-TOBACCO FORMER USER [facility] [place] [facility] Sep 17, 2021 03:00 PM VA-TOBACCO QUIT 15 YRS OR MORE [facility] [place] [facility] Aug 15, 2020 10:00 AM VA-TOBACCO FORMER USER [facility] [place] [facility] Aug 15, 2020 10:00 AM VA-TOBACCO QUIT 15 YRS OR MORE [facility] [place] [facility] May 12, 2019 03:07 PM VA-TOBACCO FORMER USER [facility] [place] [facility] May 12, 2019 03:07 PM VA-TOBACCO QUIT 15 YRS OR MORE [facility] [place] [facility] May 31, 2018 01:08 PM VA-TOBACCO FORMER USER [facility] [place] [facility] May 31, 2018 01:08 PM VA-TOBACCO QUIT 15 YRS OR MORE [facility] [place] [facility] Feb 16, 2017 01:33 PM QUIT TOBACCO USE > 7 YEARS AGO quit 16 years ago [facility] Nov 13, 2015 03:48 PM QUIT TOBACCO USE > 7 YEARS AGO . [facility] May 12, 2013 12:49 PM QUIT TOBACCO USE > 7 YEARS AGO quit 2001 [facility] Advance Directives: All historical and current Section Date Range: From patient's date of to the date document was created. This section includes ALL of a patient's completed or amended [place] Advance and Rescinded Directives. The entries below indicate that a directive exists for the patient, but an actual copy is not included with this document. The data comes from all [place] facilities. Date Advance Directives Provider Source Nov 03, 2022 ADVANCE DIRECTIVE LENORA CARCAMO [facility] Aug 16, 2020 ADVANCE DIRECTIVE EDMUND MORGAN [facility] Encounter Notes: All associated encounter notes This section contains the clinical notes associated to the Encounter. Date/Time Encounter Note(s) Provider Source Aug 07, 2023 07:06 AM RHEUMATOLOGY NOTE: LOCAL TITLE: RHEUMATOLOGY PROGRESS NOTE STANDARD TITLE: RHEUMATOLOGY NOTE DATE OF NOTE: AUG 07, 2023@07:06 ENTRY DATE: AUG 07, 2023@07:06:36 AUTHOR: [facility] EXP COSIGNER: URGENCY: STATUS: COMPLETED Rheumatology Follow-Up CC: follow up OA knees HPI: Mcdermitt with OA of the knees here to repeat bilateral knee viscosupplementation. s/p conservative therapy and CSI bilateral knees 03/16, 03/03/17 (very helpful) and 03/09/18 (not helpful after 1-2 days). s/p trial of synvisc bilateral knees 09/14/18 (very helpful). He has continued to receive this every 6 months with improvement in knee pain and function. Here to repeat. +knee pain for several years, no specific trauma. +knee pain with activity-- especially up stairs or downhill, He does do the PT exercises, and walks once weekly. Aspercreme helps; acetaminophen arthritis strength 1 at bedtime, and one naproxen in the am--these help. He was unable to take fish oil due to GI side effects. Had upper and lower GIs to assess anemia--found to have UGI ulcers, likely due to naprosyn--now on omeprazole and iron, and feeling well. 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 Hematuria ([facility] 04853156) 2. Inflamed Seborrheic Keratosis ([facility] [id number]) 3. Glaucoma 4. Chronic gastric ulcer 5. Obesity 6. Primary generalized osteoarthritis 7. Obstructive sleep apnea syndrome 8. Coronary arteriosclerosis 9. Benign essential hypertension (SNOMED CT 2774015) 10. HYPERLIPIDEMIA 11. 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 BPH W/O URINARY OBSTRUCT Meds:Active Outpatient Medications (including Supplies): AMMONIUM LACTATE 12% LOTION APPLY MODERATE AMOUNT ACTIVE TOPICALLY ONCE DAILY FOR DRY IRRITATED SKIN CARBOXYMETHYLCELLULOSE NA 0.5% OPH SOLN INSTILL 1 DROP ACTIVE INTO EACH EYE FOUR TIMES DAILY NEEDED FOR DRYNESS DICLOFENAC NA 1% TOP GEL APPLY 2 GRAMS TOPICALLY FOUR ACTIVE TIMES A DAY FOR OSTEOARTHRITIS - USE DOSING CARD PROVIDED IN BOX APPLY TO HANDS FERROUS SULFATE 325MG TAB TAKE ONE TABLET BY MOUTH ONCE ACTIVE DAILY TO SUPPLEMENT IRON HYLAN G-F20 48MG/6ML INJ SYRINGE 6ML INJECT 48MG/6ML ACTIVE INTRA-ARTICULAR NEEDED DIRECTED BY PROVIDER LATANOPROST 0.005% OPH SOLN INSTILL 1 DROP INTO EACH EYE ACTIVE AT BEDTIME FOR INCREASED PRESSURE IN THE EYE LISINOPRIL 10MG TAB TAKE ONE TABLET BY MOUTH ONCE DAILY TO ACTIVE CONTROL BLOOD PRESSURE LUBRICATING (PF) OPH OINT APPLY THIN RIBBON INTO EACH EYE ACTIVE AT BEDTIME METOPROLOL TARTRATE 50MG TAB TAKE ONE TABLET BY MOUTH ACTIVE TWICE DAILY FOR BLOOD PRESSURE/HEART OMEPRAZOLE 20MG EC CAP TAKE ONE CAPSULE BY MOUTH EVERY ACTIVE MORNING 30 MINUTES BEFORE BREAKFAST ROSUVASTATIN CA 40MG TAB TAKE ONE TABLET BY MOUTH ONCE ACTIVE DAILY FOR CHOLESTEROL TAMSULOSIN HCL 0.4MG CAP TAKE ONE CAPSULE BY MOUTH ONCE ACTIVE DAILY FOR ENLARGED PROSTATE TIMOLOL MALEATE 0.5% OPH SOLN INSTILL 1 DROP INTO EACH EYE ACTIVE EVERY MORNING Non-VA ACETAMINOPHEN TAB 1300 BY MOUTH EVERY MORNING AND ACTIVE 650MG BY MOUTH EVERY EVENING Non-VA ASPIRIN 81MG EC TAB 81MG BY MOUTH DAILY ACTIVE Non-VA MULTIVITAMIN/MINERALS CAP/TAB 1 TABLET BY MOUTH ACTIVE EVERY MORNING PEx:97.6 F [36.4 C] (06/02/2023 14:24)150/90 (07/09/2023 10:33)65 (06/02/2023 14:24) Blood Pressure: 142/76 (08/07/2023 09:43) Pain: 4 (08/07/2023 08:54) Patient Height: 63 in [160.0 cm] (03/02/2023 10:05) Patient Weight: 210 lb [95.25 kg] (08/07/2023 08:54) Pulse: 54 (08/07/2023 08:54) Respiration: 16 (08/07/2023 08:54) Temperature: 97.2 F [36.2 C] (08/07/2023 08:54) is pleasant and appropriate; gait is broad-based due to body habitus, and there is a varus deformity of the knees bilaterally; there is nontender bony enlargement of the knees, without effusion or synovitis. forefeet are nontender to squeeze Data: All available test results were reviewed with the A/P: All instructions were explained for the , who expressed understanding and agreement. 1. Osteoarthritis causing knee pain--rec: weight loss and regular low impact exercise, PT exercises, acetaminophen sustained release (arthritis strength) daily, alternating with naproxen)), and aspercreme or other topicals to the local area CSI bilateral knees 03/16, 03/17 was very helpful; 03/09/18 only helped for a day or two--s/p a trial of synvisc one for bilateral knees 09/14/18 and subsequently q 6 months with good effect. Here for repeat synvisc one PROCEDURE NOTE: JOINT INJECTIONS RHEUMATOLOGY PROCEDURE PREFORMED: bilateral knee synvisc one DIAGNOSIS: OA bilateral knees 1) MEDICATION RECONCILIATION REMINDER DONE Yes (to include medications being used during invasive procedure) 2) INFORMED CONSENT: Obtained verbally, and through IMED.Yes The patient voiced an understanding and desire to proceed with the procedure. 3) VITAL SIGNS DOCUMENTED PRE-PROCEDURE, PAIN ASSESSMENT Yes: Temperature:97.2 F [36.2 C] (08/07/2023 08:54) Blood Pressure:142/76 (08/07/2023 09:43) Pulse:54 (08/07/2023 08:54) Respiration:16 (08/07/2023 08:54) Pain:4 (08/07/2023 08:54) PRE-PROCEDURE PAIN ASSESSMENT: Location: bilat knees Pain is acute No Pain is chronic Yes Check all that apply, the pain is: Comes and Goes, Dull Ache Alleviating factors include:Prior Tx 4) Time-Out and Mcdermitt Identification: TIME:Jul@08:55 PROVIDER NAME:september STAFF NAME:hurst IDENTIFICATION CONFIRMED BY ASSISTING STAFF MEMBER (X) stating full name CHAR TATE (X) Mcdermitt stating full SS# [id number] Mcdermitt stating Jul The risks (including pain, bleeding and infection, as well as occasional inefficacy) and the benefits (including improved pain and function) were discussed, and the requests the injection. Bilateral medial knee areas were prepped with chlorhexidine gluconate, and anesthetized with topical ethyl chloride and lidocaine 2% plain, 2 cc each side. Bilateral medial knee joints were injected with synvisc one 48 mg/6 ml (right Lot No [id number], exp. date 2025-12-29; left Lot No [id number], exp. date 2025-12-29) The tolerated the procedure well, and had good initial pain relief Aftercare explained: The Mcdermitt knows the area may still hurt for the next few days, and that is treated with ice and acetaminophen prn. The bandaid may be removed this afternoon. For worsened warmth, pain or erythema of the injected area, or for fevers, call clinic or seek urgent care for assistance. POST-PROCEDURE PAIN ASSEMENT COMPLETED Yes: Pain 1-10:2 Other: DISCHARGE INSTRUCTIONS OUTPATIENT NOTE PRINTED Yes Return to clinic: 24 week(s) for follow-up. 2. Other medical problems are per the PCM 3. FOllow up in 6 months or as needed Medication Reconciliation: Outpatient: Has the patient been taking medications as documented in the EMLR? YES: The patient has been taking medications as documented in the EMLR. Essential Medication List for Review used to complete this medication reconciliation. INCLUDED IN THIS LIST: Alphabetical list of active outpatient prescriptions dispensed from this [place] (local) and dispensed from another [place] or DoD facility (remote) as well as inpatient orders [...] whether with a VA or non-VA provider. Sexual Orientation: The patient thinks of their sexual orientation as: Straight or Heterosexual /elizabeth/ Mercy Temple MD INTERNAL MEDICINE and RHEUMATOLOGY Signed: 08/21/2023 07:15 [facility]
--- OUTSIDE RECORDS SUMMARY | 2024-05-16 14:04 | XMS_ITS ---
Author Name [facility] [place] [facility] [place] Address [address] [place] [address] Care Team Providers Care Well Blower Name Role Phone KIARA ESPARZA Primary Care [...] Name Patient's Relationship to Policy Colbert [facility] (WNR) MEDICARE ADVANTAGE [facility] (WNR) Jun 01, 2017 [id number] [phone] Krishan TATE PATIENT [facility] (WNR) MEDICARE ADVANTAGE [facility] (WNR) Jun 01, 2017 [id number] Krishan TATE PATIENT [facility] (WNR) MEDICARE ADVANTAGE [facility] (WNR) Jun 01, 2017 [id number] [phone] Krishan TATE PATIENT Selected Encounter This section includes the information on record at [place] for the Encounter. Date/Time Encounter Type Encounter Description Reason Provider Source Jul 30, 2023 02:15 PM FUNDUS PHOTOGRAPHY W/I&R OPTOMETRY ICD-10-CM H40.1123 Primary open-angle glaucoma, left eye, severe stage ZENOBIARICARDO E E Encounter Template Text not used by [facility] Assessments - Encounter Diagnoses This section includes the primary and secondary diagnoses documented for the Encounter. Date/Time Primary/Secondary Diagnosis Diagnosis Name Provider Source Jul 31, 2023 04:22 PM PRIMARY Primary open-angle glaucoma, left eye, severe stage RICARDO FREGOSO E [place] [facility] [place] [facility] Jul 31, 2023 04:22 PM SECONDARY Primary open-angle glaucoma, right eye, severe stage ZENOBIA,RICARDO E [place] [facility] [place] [facility] Plan of Treatment: Future Appointments (+ 6 months) and Future Tests (+/- 45 days) The Plan of Treatment section includes future care activities for the [facility] [place] [facility] This section includes future appointments and future orders which are active, pending or scheduled. Future Appointments This section includes appointments that were scheduled to occur 6 months from the date of the Encounter, up to a maximum of 20 appointments. The data comes from all [place] treatment facilities. Appointment Date/Time Appointment Type Appointme nt Facility Name Aug 04, 2023 02:00 PM AMBULATORY - MEDICINE [place] [facility] [place] [facility] Aug 07, 2023 09:30 AM AMBULATORY - MEDICINE [place] [facility] [place] [facility] Aug 17, 2023 11:30 AM AMBULATORY - MEDICINE [place] [facility] Aug 26, 2023 01:00 PM AMBULATORY - MEDICINE [place] [facility] Sep 28, 2023 10:30 AM AMBULATORY - MEDICINE [place] [facility] Nov 02, 2023 11:30 AM AMBULATORY - MEDICINE [place] [facility] [place] [facility] Dec 22, 2023 11:10 AM AMBULATORY - MEDICINE [place] [facility] Jan 06, 2024 10:40 AM AMBULATORY - MEDICINE [place] [facility] Jan 12, 2024 02:30 PM [facility] Jan 25, 2024 10:30 AM AMBULATORY - [facility]IC[facility] Lab Results: +/- 30 days [...] Range Comment Aug 07, 2023 08:13 [facility] VITAMIN D (25-[place]) Specimen Type: SERUM No comment entered. Ordering Provider: BRITTNEY ESPARZA Report Released Date/Time: Jul 30, 2023 03:58 PM Reporting [facility] [address] [address] Performing Lab: [facility] [address] VITAMIN D (25-OH) 44 ng/mL 20-50 Aug 07, 2023 08:12 AM [facility] LIPID PANEL FASTING Specimen Type: SERUM No comment entered. Ordering Provider: BRITTNEY ESPARZA Report Released Date/Time: Jun 04, 2023 12:30 PM Reporting Lab: [facility] [address] [address] Performing Lab: [facility] [address] CHOLESTEROL 120 mg/dL TRIGLYCERIDE 189 mg/dL H 0-150 LDL calculated 45 mg/dL 0-129 CHOL/HDL 3.2 HDL CHOLESTEROL 37 mg/dL L 40-60 Aug 07, 2023 08:12 AM [facility] LIVER FUNCTION Specimen Type: SERUM No comment entered. Ordering Provider: BRITTNEY ESPARZA Report Released Date/Time: Jun 04, 2023 12:30 PM Reporting Lab: [facility] [address] [address] Performing Lab: [facility] [address] [facility] [address] PROTEIN,TOTAL 6.5 g/dL 6.0-8.3 ALBUMIN 4.0 g/dL 3.5-5.0 ALKALINE PHOSPHATASE 49 U/L 40-150 AST 16 U/L 5-34 ALT 20 U/L BILIRUBIN, TOTAL 0.4 mg/dL 0.2-1.2 Aug 07, 2023 08:12 AM [facility] BASIC METABOLIC PANEL (fasting) Specimen Type: SERUM No comment entered. Ordering Provider: BRITTNEY ESPARZA Report Released Date/Time: Jun 04, 2023 12:30 PM Reporting Lab: [facility] [address] [facility] [address] Performing Lab: [address] [address] UREA NITROGEN 15 mg/dL 7-25 GLUCOSE 106 mg/dL H 65-100 SODIUM 140 mmol/L 135-145 POTASSIUM 4.5 mmol/L 3.5-5.0 CHLORIDE 107 mmol/L 100-110 CO2 26 meq/L 20-30 CREATININE, Serum 0.82 mg/dL 0.50-1.40 eGFR(CKD-EPI 2020) 85 mL/min >60 Aug 07, 2023 08:12 AM [facility] VITAMIN B-1 (THIAMINE)-(QU) Specimen Type: PLASMA Comment: Vitamin supplementation within 24 hours prior to blood draw may affect the accuracy of the results. This test was developed and its analytical performance characteristics have been determined by [employer] [place], [place]. It has not been cleared or approved by the U.S. Food and Drug Administration. This assay has been validated pursuant to the CLIA regulations and is used for clinical purposes. Test Performed by [employer], [employer] [place], [address] [place] [address] Dami Potts M.D., Ph.D., Director of Laboratories , CLIA [id number] TEST PERFORMED AT: , Ordering Provider: BRITTNEY ESPARZA Report Released Date/Time: Jul 30, 2023 03:58 PM Reporting Lab: [facility] [place] [facility] [address] [facility] [address] Performing Lab: [facility] [place] [facility] [address] [address] VITAMIN B-1 (THIAMINE)-(Q U) 29 nmol/L 8-30 Aug 07, 2023 08:12 AM [facility] FOLATE Specimen Type: SERUM No comment entered. Ordering Provider: BRITTNEY ESPARZA Report Released Date/Time: Jul 30, 2023 03:58 PM Reporting Lab: [facility] [address] [facility] [address] Performing Lab: [facility] [address] [facility] [address] FOLATE 14.70 ng/mL >5.2 Aug 07, 2023 08:12 AM [facility] TSH Specimen Type: SERUM No comment entered. Ordering Provider: BRITTNEY ESPARZA Report Released Date/Time: Jul 30, 2023 03:58 PM Reporting Lab: [facility]TRN [facility] [address] [facility] [address] Performing Lab: [facility]N [facility] [address] [facility] [address] TSH 2.25 u[IU]/mL 0.35-5.00 Aug 07, 2023 08:12 AM [facility] VITAMIN B12 Specimen Type: SERUM No comment entered. Ordering Provider: BRITTNEY ESPARZA Report Released Date/Time: Jul 30, 2023 03:58 PM Reporting Lab: [facility]TR[facility] [address] [facility] [address] Performing Lab: [facility]N [facility] [address] [facility] [address] VITAMIN B12 552 pg/mL 200-900 Aug 07, 2023 08:12 AM [facility] IRON & TIBC PANEL Specimen Type: SERUM No comment entered. Ordering Provider: BRITTNEY ESPAZRA Report Released Date/Time: Jul 30, 2023 03:58 PM Reporting Lab: [facility] [address] [facility] [address] Performing Lab: [address] [address] TIBC 408 ug/dL 204-475 IRON 59 ug/dL 40-160 Transferrin Saturation 14.5 L 20.0-50.0 Aug 07, 2023 08:12 AM [facility] CBC AND DIFF (AUTO) Specimen Type: BLOOD No comment entered. Ordering Provider: BRITTNEY ESPARZA Report Released Date/Time: Jul 30, 2023 03:58 PM Reporting Lab: [address] [address] Performing Lab: [address] [address] WBC 5.36 10*3/uL 4.50-11.00 RBC 4.97 10*6/uL 4.23-5.66 HGB 14.7 g/dL 12.8-17 HCT 44.9 39.2-50.4 MCV 90.3 fL 82-99 MCHC 32.7 g/dL 30.8-35.1 PLT 273 10*3/uL 140-360 RDW-CV 13.0 12.0-16.0 [place], Abs 0.59 10*3/uL 0.30-1.10 MCH 29.6 pg 26.2-32.6 Neut % 70.0 43.7-75.8 Lymph % 14.9 14.0-42.3 [place] % 11.0 5.1-13.7 Eos % 3.2 0.4-6.8 [...] and tobacco- related health factors from the [place] facility where the Encounter took place. Current Smoking Status This section includes the most current smoking, or tobacco-related health factor, from the [place] facility where the Encounter took place. Date/Time Current Smoking Status Comment [facility] it Oct 31, 2022 11:30 AM VA-TOBACCO FORMER USER [place] [facility] [facility] Tobacco Use History This section includes a history of the smoking, or tobacco-related health factors, that were collected on or before the date of the Encounter. The data comes from the [place] facility where the Encounter took place. Date/Time Smoking Status/Tobac co Use Comment [facility] Oct 31, 2022 11:30 AM VA-TOBACCO QUIT 15 YRS OR MORE [place] [facility] Sep 17, 2021 03:00 PM VA-TOBACCO FORMER USER [facility] [place] [facility] Sep 17, 2021 03:00 PM VA-TOBACCO QUIT 15 YRS OR MORE [facility] [facility] Aug 15, 2020 10:00 AM VA-TOBACCO FORMER USER [place] [facility] Aug 15, 2020 10:00 AM VA-TOBACCO QUIT 15 YRS OR MORE [place] [facility] May 12, 2019 03:07 PM VA-TOBACCO FORMER USER [facility] [place] [facility] May 12, 2019 03:07 PM VA-TOBACCO QUIT 15 YRS OR MORE [facility] [place] [facility] May 31, 2018 01:08 PM VA-TOBACCO FORMER USER [facility] [place] [facility] May 31, 2018 01:08 PM VA-TOBACCO QUIT 15 YRS OR MORE [facility] [facility] Feb 16, 2017 01:33 PM QUIT TOBACCO USE > 7 YEARS AGO quit 16 years ago [facility] [place] [facility] Nov 13, 2015 03:48 PM QUIT TOBACCO USE > 7 YEARS AGO . [facility] [place] [facility] May 12, 2013 12:49 PM QUIT TOBACCO USE > 7 YEARS AGO quit 2001 [facility] Advance Directives: All historical and current Section Date Range: From patient's date of to the date document was created. This section includes ALL of a patient's completed or amended [place] Advance and Rescinded Directives. The entries below indicate that a directive exists for the patient, but an actual copy is not included with this document. The data comes from all [place] facilities. Date Advance Directives Provider Source Nov 03, 2022 ADVANCE DIRECTIVE CHARLIEArmandoLENORA BRAVO [facility] Aug 16, 2020 ADVANCE DIRECTIVE EDMUND MORGAN [facility] Encounter Notes: All associated encounter notes This section contains the clinical notes associated to the Encounter. Date/Time Encounter Note(s) Provider Source Jul 02, 2023 02:25 PM OPTOMETRY CONSULT: LOCAL TITLE: CONSULT REPORT/OPTOMETRY FUNDUS PHOTO STANDARD TITLE: OPTOMETRY CONSULT DATE OF NOTE: JUL 02, 2023@14:25 ENTRY DATE: JUL 31, 2023@16:19:47 AUTHOR: GERARD FREGOSO EXP COSIGNER: URGENCY: STATUS: COMPLETED Review fundus photos taken of patient with bilateral severe stage open-angle glaucoma Fundus photo left eye shows pallor with marked glaucomatous cupping and superior rim loss consistent with inferior field defect. Fundus photo right eye shows pallor with superior greater than inferior notching consistent with visual field testing., Glaucomatous disc damage with marked cupping and pallor left greater than right eye consistent with physical exam and visual field testing.. Continue current treatment and keep scheduled follow-up as indicated /elizabeth/ Gerard Fregoso OD CHIEF OF OPTOMETRY Signed: 07/31/2023 16:22 GERARD FREGOSO [facility]
--- OUTSIDE RECORDS SUMMARY | 2024-05-16 14:04 | XMS_ITS | Encounter Summary ---
Author Name [facility] Organization [facility] Address [address] [place] [address] Care Team Providers Care Third Mate Name Role Phone KIARA ESPARZA Primary Care [...] Colbert's Name Patient's Relationship to Policy Colbert [facility] (WNR) MEDICARE ADVANTAGE [facility] (WNR) Jun 01, 2017 [id number] Krishan TATE PATIENT [facility] (WNR) MEDICARE ADVANTAGE [facility] (WNR) Jun 01, 2017 [id number] [phone] Krishan TATE PATIENT [facility] (WNR) MEDICARE ADVANTAGE [facility] (WNR) Jun 01, 2017 [id number] Krishan TATE PATIENT Selected Encounter This section includes the information on record at ID for the Encounter. Date/Time Encounter Type Encounter Description Reason Provider Source Jul 30, 2023 02:00 PM EXTENDED VISUAL FIELD XM OPTOMETRY ICD-10-CM H40.1123 Primary open-angle glaucoma, left eye, severe stage ZENOBIARICARDO IHE Encounter Template Text not used by [facility] Assessments - Encounter Diagnoses This section includes the primary and secondary diagnoses documented for the Encounter. Date/Time Primary/Secondary Diagnosis Diagnosis Name Provider Source Jul 31, 2023 04:18 PM PRIMARY Primary open-angle glaucoma, left eye, severe stage RICARDO FREGOSO [facility] [place] [facility] Jul 31, 2023 04:18 PM SECONDARY Primary open-angle glaucoma, right eye, severe stage RICARDO FREGOSO [facility] [place] [facility] Plan of Treatment: Future Appointments [...] - MEDICINE ID C [facility] [place] [facility] Aug 07, 2023 09:30 AM AMBULATORY - MEDICINE ID C [facility] [facility] Aug 17, 2023 11:30 AM AMBULATORY - MEDICINE ID C [facility] [facility] Aug 26, 2023 01:00 PM AMBULATORY - MEDICINE ID C [facility] [place] [facility] Sep 28, 2023 10:30 AM AMBULATORY - MEDICINE ID C [facility] [place] [facility] Nov 02, 2023 11:30 AM AMBULATORY - MEDICINE ID C [facility] [facility] Dec 22, 2023 11:10 AM AMBULATORY - MEDICINE ID C [facility] [place] [facility] Jan 06, 2024 10:40 AM AMBULATORY - MEDICINE ID C [facility] [place] [facility] Jan 12, 2024 02:30 PM AMBULATORY - MEDICINE ID C [facility] [place] [facility] Jan 25, 2024 10:30 AM AMBULATORY - MEDICINE ID [facility] Lab Results: +/- 30 days [...] Range Comment Aug 07, 2023 08:13 AM [facility] VITAMIN D (25-OH) Specimen Type: SERUM No comment entered. Ordering Provider: BRITTNEY ESPARZA Report Released Date/Time: Jul 30, 2023 03:58 PM Reporting Lab: [facility] [address] Performing Lab: [facility] [address] VITAMIN D (25-OH) 44 ng/mL 20-50 Aug 07, 2023 08:12 AM [facility] LIPID PANEL FASTING Specimen Type: SERUM No comment entered. Ordering Provider: BRITTNEY ESPARZA Report Released Date/Time: Jun 04, 2023 12:30 PM Reporting Lab: [facility] [address] Performing Lab: [facility] [address] [address] CHOLESTEROL 120 mg/dL TRIGLYCERIDE 189 mg/dL H 0-150 LDL calculated 45 mg/dL 0-129 CHOL/HDL 3.2 HDL CHOLESTEROL 37 mg/dL L 40-60 Aug 07, 2023 08:12 AM [facility] LIVER FUNCTION Specimen Type: SERUM No comment entered. Ordering Provider: BRITTNEY ESPARZA Report Released Date/Time: Jun 04, 2023 12:30 PM Reporting Lab: [facility] [address] [address] Performing Lab: [facility] [address] [facility] [address] PROTEIN,TOTAL 6.5 g/dL 6.0-8.3 ALBUMIN 4.0 g/dL 3.5-5.0 ALKALINE PHOSPHATASE 49 U/L 40-150 AST 16 U/L 5-34 ALT 20 U/L BILIRUBIN, TOTAL 0.4 mg/dL 0.2-1.2 Aug 07, 2023 08:12 AM [facility] BASIC METABOLIC PANEL (fasting) Specimen Type: SERUM No comment entered. Ordering Provider: BRITTNEY ESPARZA Report Released Date/Time: Jun 04, 2023 12:30 PM Reporting Lab: [address] [address] Performing Lab: [address] [address] UREA NITROGEN 15 mg/dL 7-25 GLUCOSE 106 mg/dL H 65-100 SODIUM 140 mmol/L 135-145 POTASSIUM 4.5 mmol/L 3.5-5.0 CHLORIDE 107 mmol/L 100-110 CO2 26 meq/L 20-30 CREATININE, Serum 0.82 mg/dL 0.50-1.40 eGFR(CKD-EPI 2020) 85 mL/min >60 Aug 07, 2023 08:12 AM [facility] VITAMIN B-1 (THIAMINE)-(QU) Specimen Type: PLASMA Comment: Vitamin supplementation within 24 hours prior to blood draw may affect the accuracy of the results. This test was developed and its analytical performance characteristics have been determined by [employer] It has not been cleared or approved by the U.S. Food and Drug Administration. This assay has been validated pursuant to the CLIA regulations and is used for clinical purposes. Test Performed by [facility], [employer] [facility], [address] [place] [address] Dami Potts M.D., Ph.D., Director of Laboratories , CLIA [id number] TEST PERFORMED AT: , Ordering Provider: BRITTNEY ESPARZA Report Released Date/Time: Jul 30, 2023 03:58 PM Reporting Lab: [facility] [place] [facility] [address] [facility] [address] Performing Lab: ID [facility] [place] [facility] [address] [address] VITAMIN B-1 (THIAMINE)-(Q U) 29 nmol/L 8-30 Aug 07, 2023 08:12 AM [facility] FOLATE Specimen Type: SERUM No comment entered. Ordering Provider: BRITTNEY ESPARZA Report Released Date/Time: Jul 30, 2023 03:58 PM Reporting Lab: [facility] [place] [facility] [address] [facility] [address] Performing Lab: [facility] [place] [place] [facility] [address] [facility] [address] FOLATE 14.70 ng/mL >5.2 Aug 07, 2023 08:12 AM [facility] TSH Specimen Type: SERUM No comment entered. Ordering Provider: BRITTNEY ESPARZA Report Released Date/Time: Jul 30, 2023 03:58 PM Reporting Lab: [facility] [place] [place] [facility] [address] [facility] [address] Performing Lab: [facility] [place] [facility] [address] [facility] [address] TSH 2.25 u[IU]/mL 0.35-5.00 Aug 07, 2023 08:12 AM [facility] VITAMIN B12 Specimen Type: SERUM No comment entered. Ordering Provider: BRITTNEY ESPARZA Report Released Date/Time: Jul 30, 2023 03:58 PM Reporting Lab: [facility] [place] [place] [facility] [address] [facility] [address] Performing Lab: [place] [facility] [place] [facility] [address] [facility] [address] VITAMIN B12 552 pg/mL 200-900 Aug 07, 2023 08:12 AM [facility] IRON & TIBC PANEL Specimen Type: SERUM No comment entered. Ordering Provider: BRITTNEY ESPARZA Report Released Date/Time: Jul 30, 2023 03:58 PM Reporting Lab: [facility] [address] [facility] [address] Performing Lab: [facility] [address] [facility] [address] TIBC 408 ug/dL 204-475 IRON 59 ug/dL 40-160 Transferrin Saturation 14.5 L 20.0-50.0 Aug 07, 2023 08:12 AM [facility] CBC AND DIFF (AUTO) Specimen Type: BLOOD No comment entered. Ordering Provider: BRITTNEY ESPARZA Report Released Date/Time: Jul 30, 2023 03:58 PM Reporting Lab: [facility] [address] [facility] [facility] [address] Performing Lab: [address] [address] WBC 5.36 10*3/uL 4.50-11.00 RBC 4.97 10*6/uL 4.23-5.66 HGB 14.7 g/dL 12.8-17 HCT 44.9 39.2-50.4 MCV 90.3 fL 82-99 MCHC 32.7 g/dL 30.8-35.1 PLT 273 10*3/uL 140-360 RDW-CV 13.0 12.0-16.0 Barbour, Abs 0.59 10*3/uL 0.30-1.10 MCH 29.6 pg 26.2-32.6 Neut % 70.0 43.7-75.8 Lymph % 14.9 14.0-42.3 Barbour % 11.0 5.1-13.7 Eos % 3.2 0.4-6.8 [...] took place. Date/Time Current Smoking Status Comment [facility] Oct 31, 2022 11:30 AM VA-TOBACCO FORMER USER ID [facility] [facility] Tobacco Use History This section includes a history of the smoking, or tobacco-related health factors, that were collected on or before the date of the Encounter. The data comes from the ID facility where the Encounter took place. Date/Time Smoking Status/Tobac co Use Comment [facility] Oct 31, 2022 11:30 AM VA-TOBACCO QUIT 15 YRS OR MORE ID [facility] [facility] Sep 17, 2021 03:00 PM VA-TOBACCO FORMER USER ID [facility] [facility] Sep 17, 2021 03:00 PM VA-TOBACCO QUIT 15 YRS OR MORE ID [facility] [place] [facility] Aug 15, 2020 10:00 AM VA-TOBACCO FORMER USER ID [facility] [facility] Aug 15, 2020 10:00 AM VA-TOBACCO QUIT 15 YRS OR MORE ID [facility] [place] [facility] May 12, 2019 03:07 PM VA-TOBACCO FORMER USER ID [facility] [facility] May 12, 2019 03:07 PM VA-TOBACCO QUIT 15 YRS OR MORE ID [facility] [facility] May 31, 2018 01:08 PM VA-TOBACCO FORMER USER ID [facility] [facility] May 31, 2018 01:08 PM VA-TOBACCO QUIT 15 YRS OR MORE ID [facility] [facility] Feb 16, 2017 01:33 PM QUIT TOBACCO USE > 7 YEARS AGO quit 16 years ago ID [facility] [place] [facility] Nov 13, 2015 03:48 PM QUIT TOBACCO USE > 7 YEARS AGO . ID [facility] [facility] May 12, 2013 12:49 PM QUIT TOBACCO USE > 7 YEARS AGO quit 2001 [facility] Advance Directives: All historical and current Section Date Range: From patient's date of to the date document was created. This section includes ALL of a patient's completed or amended ID Advance and Rescinded Directives. The entries below indicate that a directive exists for the patient, but an actual copy is not included with this document. The data comes from all ID facilities. Date Advance Directives Provider Source Nov 03, 2022 ADVANCE DIRECTIVE LENORA CARCAMO [facility] Aug 16, 2020 ADVANCE DIRECTIVE EDMUND MORGAN [facility] Encounter Notes: All associated encounter notes This section contains the clinical notes associated to the Encounter. Date/Time Encounter Note(s) Provider Source Jul 30, 2023 02:15 PM OPTOMETRY CONSULT: LOCAL TITLE: CONSULT REPORT/OPTOMETRY VISUAL FIELD STANDARD TITLE: OPTOMETRY CONSULT DATE OF NOTE: JUL 30, 2023@14:15 ENTRY DATE: JUL 31, 2023@16:15:21 AUTHOR: FRANCISCO FREGOSO EXP COSIGNER: URGENCY: STATUS: COMPLETED Subjective: Review visual field testing of patient with bilateral severe stage open-angle glaucoma status post combined cataract surgery with trabeculectomy each eye. Objective: 102 visual field right eye shows high fixation losses as well as false negative errors with marginal reliability indices. Global reduction in sensitivity with dense inferior nasal step to fixation with early superior nasal depression as well. Visual field left eye shows high fixation losses with high false negative greater than false positive errors for marginal reliability. Global reduction in sensitivity with dense to absolute inferior nasal step to fixation with breakthrough to a dense inferior arcuate defect. Assessment: Marginal reliability each eye with glaucomatous loss left greater than right eye as previously noted. Plan: Continue current treatment and keep scheduled follow-up. /elizabeth/ Francisco Fregoso OD CHIEF OF OPTOMETRY Signed: 07/31/2023 16:18 FRANCISCO FREGOSO [facility]
--- OUTSIDE RECORDS SUMMARY | 2024-05-16 14:04 | XMS_ITS ---
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 Name Role Phone LUIS F CASH [...] Name Patient's Relationship to Policy Colbert KYLIE [facility] (WNR) MEDICARE ADVANTAGE [facility] (WNR) Jun 01, 2017 [id number] [phone] Kirshan TATE PATIENT [facility] (WNR) MEDICARE ADVANTAGE [facility] (WNR) Jun 01, 2017 [id number] Krishan TATE PATIENT [facility] (WNR) MEDICARE ADVANTAGE [facility] (WNR) Jun 01, 2017 [id number] Krishan TATE PATIENT Selected Encounter This section includes the information on record at NE for the Encounter. Date/Time Encounter Type Encounter Description Reason Pro vider Source Jul 30, 2023 03:17 PM Outpatient Encounter PRIMARY CARE/MEDICINE IHE Encounter Template Text not used by NE Plan of Treatment: Future Appointments (+ 6 months) and Future Tests (+/- 45 days) The Plan of Treatment section includes future care activities for the patient from all [place] treatmentfacilities. This section includes future appointments and future orders which are active, pending or scheduled. Future Appointments This section includes appointments that were scheduled to occur 6 months from the date of the Encounter, up to a maximum of 20 appointments. The data comes from all [place] treatment facilities. Appointment Date/Time Appointment Type Appointme nt Facility Name Aug 04, 2023 02:00 PM AMBULATORY - MEDICINE [place] [facility] [place] [facility] Aug 07, 2023 09:30 AM AMBULATORY - MEDICINE [place] [facility] [place] [facility] Aug 17, 2023 11:30 AM AMBULATORY - MEDICINE [place] [facility] [place] [facility] Aug 26, 2023 01:00 PM AMBULATORY - MEDICINE [place] [facility] [place] [facility] Sep 28, 2023 10:30 AM AMBULATORY - MEDICINE [place] [facility] [place] [facility] Nov 02, 2023 11:30 AM AMBULATORY - MEDICINE [place] [facility] [place] [facility] Dec 22, 2023 11:10 AM AMBULATORY - MEDICINE [place] [facility] [place] [facility] Jan 06, 2024 10:40 AM AMBULATORY - MEDICINE [place] [facility] [place] [facility] Jan 12, 2024 02:30 PM AMBULATORY - MEDICINE [place] [facility] [place] [facility] Jan 25, 2024 10:30 AM AMBULATORY - MEDICINE [place] [facility] [place] [facility] Lab Results: +/- 30 days of the encounter This section includes the Chemistry and Hematology Lab Results on record with NE for the patient. Radiology Reports and Pathology Reports are provided separately, in subsequent sections. Lab Results This section contains the Chemistry/Hematology Results that were resulted 30 days before or 30 daysafter the date of the Encounter. Date/Time Source Result Type Result - Unit Interpretation Reference Range Comment Aug 07, 2023 08:13 AM [facility] VITAMIN D (25-OH) Specimen Type: SERUM No comment entered. Ordering Provider: BRITTNEY CASH Report Released Date/Time: Jul 30, 2023 03:58 PM Reporting Lab: [address] [address] Performing Lab: [address] [address] VITAMIN D (25-OH) 44 ng/mL 20-50 Aug 07, 2023 08:12 AM [facility] LIPID PANEL FASTING Specimen Type: SERUM No comment entered. Ordering Provider: BRITTNEY CASH Report Released Date/Time: Jun 04, 2023 12:30 PM Reporting Lab: [address] [address] Performing Lab: [address] [address] CHOLESTEROL 120 mg/dL TRIGLYCERIDE 189 mg/dL H 0-150 LDL calculated 45 mg/dL 0-129 CHOL/HDL 3.2 HDL CHOLESTEROL 37 mg/dL L 40-60 Aug 07, 2023 08:12 AM [facility] LIVER FUNCTION Specimen Type: SERUM No comment entered. Ordering Provider: BRITTNEY CASH Report Released Date/Time: Jun 04, 2023 12:30 PM Reporting Lab: [address] [address] Performing Lab: [address] [address] PROTEIN,TOTAL 6.5 g/dL 6.0-8.3 ALBUMIN 4.0 g/dL 3.5-5.0 ALKALINE PHOSPHATASE 49 U/L 40-150 AST 16 U/L 5-34 ALT 20 U/L BILIRUBIN, TOTAL 0.4 mg/dL 0.2-1.2 Aug 07, 2023 08:12 AM [facility] BASIC METABOLIC PANEL (fasting) Specimen Type: SERUM No comment entered. Ordering Provider: BRITTNEY CASH Report Released Date/Time: Jun 04, 2023 12:30 PM Reporting Lab: [facility] [address] [facility] [address] Performing Lab: [facility] [address] [facility] [address] UREA NITROGEN 15 mg/dL 7-25 GLUCOSE 106 mg/dL H 65-100 SODIUM 140 mmol/L 135-145 POTASSIUM 4.5 mmol/L 3.5-5.0 CHLORIDE 107 mmol/L 100-110 CO2 26 meq/L 20-30 CREATININE, Serum 0.82 mg/dL 0.50-1.40 eGFR(CKD-EPI 2020) 85 mL/min >60 Aug 07, 2023 08:12 AM [facility] VITAMIN B-1 (THIAMINE)-(QU) Specimen Type: PLASMA Comment: Vitamin supplementation within 24 hours prior to blood draw may affect the accuracy of the results. This test was developed and its analytical performance characteristics have been determined by [email or web address] [place], [place]. It has not been cleared or approved by the U.S. Food and Drug Administration. This assay has been validated pursuant to the CLIA regulations and is used for clinical purposes. Test Performed by [facility], [email or web address], [address] [place] [address] Dami Potts M.D., Ph.D., Director of Laboratories , CLIA [id number] TEST PERFORMED AT: , Ordering Provider: BRITTNEY CASH Report Released Date/Time: Jul 30, 2023 03:58 PM Reporting Lab: [facility] [address] [facility] [address] Performing Lab: [place] [id number] [address] VITAMIN B-1 (THIAMINE)-(Q U) 29 nmol/L 8-30 Aug 07, 2023 08:12 AM [facility] FOLATE Specimen Type: SERUM No comment entered. Ordering Provider: BRITTNEY CASH Report Released Date/Time: Jul 30, 2023 03:58 PM Reporting Lab: [facility] [place] [facility] [address] [facility] [address] Performing Lab: [facility] [place] [facility] [address] [facility] [address] FOLATE 14.70 ng/mL >5.2 Aug 07, 2023 08:12 AM [facility] [place] [facility] TSH Specimen Type: SERUM No comment entered. Ordering Provider: BRITTNEY CASH Report Released Date/Time: Jul 30, 2023 03:58 PM Reporting Lab: [place] [facility] [place] [facility] [address] [facility] [address] Performing Lab: [place] [facility] [place] [facility] [address] [facility] [address] TSH 2.25 u[IU]/mL 0.35-5.00 Aug 07, 2023 08:12 [facility] VITAMIN B12 Specimen Type: SERUM No comment entered. Ordering Provider: BRITTNEY CASH Report Released Date/Time: Jul 30, 2023 03:58 PM Reporting Lab: [facility] [place] [facility] [address] [facility] [address] Performing Lab: [place] [facility] [place] [facility] [address] [facility] [address] VITAMIN B12 552 pg/mL 200-900 Aug 07, 2023 08:12 [facility] IRON & TIBC PANEL Specimen Type: SERUM No comment entered. Ordering Provider: BRITTNEY CASH Report Released Date/Time: Jul 30, 2023 03:58 PM Reporting Lab: [place] [facility] [place] [facility] [address] [facility] [address] Performing Lab: [place] [facility] [place] [facility] [address] [facility] [address] TIBC 408 ug/dL 204-475 IRON 59 ug/dL 40-160 Transferrin Saturation 14.5 L 20.0-50.0 Aug 07, 2023 08:12 AM [facility] CBC AND DIFF (AUTO) Specimen Type: BLOOD No comment entered. Ordering Provider: BRITTNEY CASH Report Released Date/Time: Jul 30, 2023 03:58 PM Reporting Lab: [facility] [address] [facility] [address] Performing Lab: [facility] [address] [facility] [address] WBC 5.36 10*3/uL 4.50-11.00 RBC 4.97 10*6/uL 4.23-5.66 HGB 14.7 g/dL 12.8-17 HCT 44.9 39.2-50.4 MCV 90.3 fL 82-99 MCHC 32.7 g/dL 30.8-35.1 PLT 273 10*3/uL 140-360 RDW-CV 13.0 12.0-16.0 [place], Abs 0.59 10*3/uL 0.30-1.10 MCH 29.6 pg 26.2-32.6 Neut % 70.0 43.7-75.8 Lymph % 14.9 14.0-42.3 [place] % 11.0 5.1-13.7 Eos % 3.2 0.4-6.8 [...] and tobacco- related health factors from the NE facility where the Encounter took place. Current Smoking Status This section includes the most current smoking, or tobacco-related health factor, from the NE facility where the Encounter took place. Date/Time Current Smoking Status Comment Facil ity Oct 31, 2022 11:30 AM VA-TOBACCO FORMER USER [facility] Tobacco Use History This section includes a history of the smoking, or tobacco-related health factors, that were collected on or before the date of the Encounter. The data comes from the NE facility where the Encounter took place. Date/Time Smoking Status/Tobac co Use Comment Facility Oct 31, 2022 11:30 AM VA-TOBACCO QUIT 15 YRS OR MORE [place] [facility] [place] [facility] Sep 17, 2021 03:00 PM VA-TOBACCO FORMER USER [place] [facility] [place] [facility] Sep 17, 2021 03:00 PM VA-TOBACCO QUIT 15 YRS OR MORE [place] [facility] [place] [facility] Aug 15, 2020 10:00 AM VA-TOBACCO FORMER USER [place] [facility] [place] [facility] Aug 15, 2020 10:00 AM VA-TOBACCO QUIT 15 YRS OR MORE [place] [facility] [place] [facility] May 12, 2019 03:07 PM VA-TOBACCO FORMER USER [place] [facility] [place] [facility] May 12, 2019 03:07 PM VA-TOBACCO QUIT 15 YRS OR MORE [place] [facility] [place] [facility] May 31, 2018 01:08 PM VA-TOBACCO FORMER USER [place] [facility] [place] [facility] May 31, 2018 01:08 PM VA-TOBACCO QUIT 15 YRS OR MORE [place] [facility] [place] [facility] Feb 16, 2017 01:33 PM QUIT TOBACCO USE > 7 YEARS AGO quit 16 years ago [facility] [place] [facility] Nov 13, 2015 03:48 PM QUIT TOBACCO USE > 7 YEARS AGO . [facility] [place] [facility] May 12, 2013 12:49 PM QUIT TOBACCO USE > 7 YEARS AGO quit 2001 [facility] Advance Directives: All historical and current Section Date Range: From patient's date of to the date document was created. This section includes ALL of a patient's completed or amended NE Advance and Rescinded Directives. The entries below indicate that a directive exists for the patient, but an actual copy is not included with this document. The data comes from all [place] facilities. Date Advance Directives Provider Source Nov 03, 2022 ADVANCE DIRECTIVE LENORA CARCAMO [facility] [place] [facility] Aug 16, 2020 ADVANCE DIRECTIVE EDMUND MORGAN [facility] Encounter Notes: All associated encounter notes This section contains the clinical notes associated to the Encounter. Date/Time Encounter Note(s) Provider Source Jul 30, 2023 03:17 PM NURSING NOTE: LOCAL TITLE: NURSING NOTE STANDARD TITLE: NURSING NOTE DATE OF NOTE: JUL 30, 2023@15:17 ENTRY DATE: JUL 30, 2023@15:18:22 AUTHOR: JANES DALLAS EXP COSIGNER: URGENCY: STATUS: COMPLETED patient stopped by to asked who prescribed his Vit D and Multi Vitamin. is unsure of proper doses. Advised him that his PCP likely asked him to buy OTC for cost savings d/t copay here. Last Vit D within reference range in March. PCP appt with labs September 27. Would like to add Vit D level to this and any other micronutrients that may be helpful to determine if he is taking supplements at correct dosages. Will discuss more with PCP at appt. Understood and agreed to plan. /elizabeth/ JANES DALLAS RN REGISTERED NURSE Signed: 07/30/2023 15:35 Receipt Acknowledged By: 07/30/2023 15:58 /elizabeth/ Luis F Cash PA-C STAFF PHYSICIAN SINGLE PASS SOIL STABILIZER OPERATOR JANES DALLAS [facility]
--- OUTSIDE RECORDS SUMMARY | 2024-05-16 14:04 | XMS_ITS ---
Author Name [facility] [place] [facility] [place] Address [address] [place] [address] Care Team Providers Care Supplier Quality Name Role Phone KIARA ESPARZA Primary Care [...] Name Patient's Relationship to Policy Colbert [facility] (WNR) MEDICARE ADVANTAGE [facility] (WNR) Jun 01, 2017 [id number] Krishan TATE PATIENT [facility] [place]) MEDICARE ADVANTAGE [facility] (WNR) Jun 01, 2017 [id number] Krishan TATE PATIENT [facility] ([place]NR) MEDICARE ADVANTAGE [facility] (WNR) Jun 01, 2017 [id number] Krishan TATE PATIENT Selected Encounter This section includes the information on record at [place] for the Encounter. Date/Time Encounter Type Encounter Description Reason Provider Source Jul 09, 2023 10:30 AM OFFICE O/P EST LOW 20 MIN PM&RS PHYSICIAN ICD-10-CM G56.01 Carpal tunnel syndrome, right upper limb KARLOS HARPER Avis Encounter Template Text not used by [place] Assessments - Encounter Diagnoses This section includes the primary and secondary diagnoses documented for the Encounter. Date/Time Primary/Secondary Diagnosis Diagnosis Name Provider Source Jul 09, 2023 11:01 AM PRIMARY Carpal tunnel syndrome, right upper limb JOHNNIE HARPER [place] [facility] [place] [facility] Jul 09, 2023 11:01 AM SECONDARY Other specified arthritis, left wrist JOHNNIE HARPER [place] [facility] [place] [facility] Jul 09, 2023 11:01 AM SECONDARY Other specified arthritis, right wrist JOHNNIE HARPER [place] [facility] [place] [facility] Plan of Treatment: Future Appointments (+ 6 months) and Future Tests (+/- 45 days) The Plan of Treatment section includes future care activities for the patient [facility] [place] [facility] This section includes future appointments and future orders which are active, pending or scheduled. Future Appointments This section includes appointments that were scheduled to occur 6 months from the date of the Encounter, up to a maximum of 20 appointments. The data comes from all [place] treatment facilities. Appointment Date/Time Appointment Type Appointme nt Facility Name Jul 30, 2023 02:00 PM AM[place]ULATORY [place]ICINE [place] [facility] [place] [facility] Jul 30, 2023 02:15 PM AM[place]ULATORY [place] [facility] [place] [facility] Jul 30, 2023 02:30 PM AM[place]ULATORY [place]ICINE [place] [facility] [place] [facility] Aug 04, 2023 02:00 PM AM[place]ULATORY [place] [facility] [facility] Aug 07, 2023 09:30 AM AMBULATORY [place]ICINE [place] [facility] [place] [facility] Aug 17, 2023 11:30 AM AMBULATORY [place]ICINE [place] [facility] [place] [facility] Aug 26, 2023 01:00 PM AMBULATORY [place]ICINE [place] [facility] [place] [facility] Sep 28, 2023 10:30 AM AMBULATORY [place]ICINE [place] [facility] [place] [facility] Nov 02, 2023 11:30 AM AMBULATORY [place]ICINE [place] [facility] [place] [facility] Dec 22, 2023 11:10 AM AMBULATORY [place]ICINE [place] [facility] [facility] Jan 06, 2024 10:40 AM AMBULATORY [place]ICINE [place] [facility] [place] [facility] Lab Results: +/- 30 days of the encounter This section includes the Chemistry and Hematology Lab Results on record with [place] for the patient. Radiology Reports and Pathology Reports are provided separately, in subsequent sections. Lab Results This section contains the Chemistry/Hematology Results that were resulted 30 days before or 30 daysafter the date of the Encounter. Date/Time Source Result Type Result - Unit Interpretation Reference Range Comment Aug 07, 2023 08:13 AM [facility] VITAMIN D (25-OH) Specimen Type: SERUM No comment entered. Ordering Provider: BRITTNEY ESPARZA Report Released Date/Time: Jul 30, 2023 03:58 PM Reporting Lab: [facility] [place] [facility] [address] [facility] [phone] Performing Lab: [facility] [address] [facility] [address] VITAMIN D (25-OH) 44 ng/mL 20-50 Aug 07, 2023 08:12 AM [facility] LIPID PANEL FASTING Specimen Type: SERUM No comment entered. Ordering Provider: BRITTNEY ESPARZA Report Released Date/Time: Jun 04, 2023 12:30 PM Reporting Lab: [facility] [place] [facility] [address] [facility] [address] Performing Lab: [facility] [address] [facility] [address] CHOLESTEROL 120 mg/dL TRIGLYCERIDE 189 mg/dL H 0-150 LDL calculated 45 mg/dL 0-129 CHOL/HDL 3.2 HDL CHOLESTEROL 37 mg/dL L 40-60 Aug 07, 2023 08:12 AM [facility] LIVER FUNCTION Specimen Type: SERUM No comment entered. Ordering Provider: BRITTNEY ESPARZA Report Released Date/Time: Jun 04, 2023 12:30 PM Reporting Lab: [facility] [address] [facility] [address] Performing Lab: [address] [address] PROTEIN,TOTAL 6.5 g/dL 6.0-8.3 ALBUMIN 4.0 g/dL 3.5-5.0 ALKALINE PHOSPHATASE 49 U/L 40-150 AST 16 U/L 5-34 ALT 20 U/L BILIRUBIN, TOTAL 0.4 mg/dL 0.2-1.2 Aug 07, 2023 08:12 AM [facility] BASIC METABOLIC PANEL (fasting) Specimen Type: SERUM No comment entered. Ordering Provider: BRITTNEY ESPARZA Report Released Date/Time: Jun 04, 2023 12:30 PM Reporting Lab: [address] [address] Performing Lab: [address] [address] UREA NITROGEN 15 mg/dL 7-25 GLUCOSE 106 mg/dL H 65-100 SODIUM 140 mmol/L 135-145 POTASSIUM 4.5 mmol/L 3.5-5.0 CHLORIDE 107 mmol/L 100-110 CO2 26 meq/L 20-30 CREATININE, Serum 0.82 mg/dL 0.50-1.40 eGFR(CKD-EPI 2020) 85 mL/min >60 Aug 07, 2023 08:12 AM [facility] VITAMIN B-1 (THIAMINE)-(QU) Specimen Type: PLASMA Comment: Vitamin supplementation within 24 hours prior to blood draw may affect the accuracy of the results. This test was developed and its analytical performance characteristics have been determined by [place]. It has not been cleared or approved by the U.S. Food and Drug Administration. This assay has been validated pursuant to the CLIA regulations and is used for clinical purposes. Test Performed by [facility], [employer] [facility], [address] [place] [address] Dami Potts M.D., Ph.D., Director of Laboratories , [place] [id number] TEST PERFORMED AT: , Ordering Provider: BRITTNEY ESPARZA Report Released Date/Time: Jul 30, 2023 03:58 PM Reporting Lab: [facility] [place] [facility] [address] [facility] [address] Performing Lab: [facility] [address] [address] VITAMIN B-1 (THIAMINE)-(Q U) 29 nmol/L 8-30 Aug 07, 2023 08:12 AM [facility] FOLATE Specimen Type: SERUM No comment entered. Ordering Provider: BRITTNEY ESPARZA Report Released Date/Time: Jul 30, 2023 03:58 PM Reporting Lab: [facility] [address] [facility] [address] Performing Lab: [facility] [address] [address] FOLATE 14.70 ng/mL >5.2 Aug 07, 2023 08:12 AM [facility] TSH Specimen Type: SERUM No comment entered. Ordering Provider: BRITTNEY ESPARZA Report Released Date/Time: Jul 30, 2023 03:58 PM Reporting Lab: [facility] [address] [facility] [address] Performing Lab: [facility] [address] [facility] [facility] [address] TSH 2.25 u[IU]/mL 0.35-5.00 Aug 07, 2023 08:12 AM [facility] IRON & TIBC PANEL Specimen Type: SERUM No comment entered. Ordering Provider: BRITTNEY ESPARZA Report Released Date/Time: Jul 30, 2023 03:58 PM Reporting Lab: [facility] [address] [facility] [address] Performing Lab: [facility]TR[facility] [address] [facility] [address] TIBC 408 ug/dL 204-475 IRON 59 ug/dL 40-160 Transferrin Saturation 14.5 L 20.0-50.0 Aug 07, 2023 08:12 AM [facility] VITAMIN B12 Specimen Type: SERUM No comment entered. Ordering Provider: BRITTNEY ESPARZA Report Released Date/Time: Jul 30, 2023 03:58 PM Reporting Lab: [address] [address] Performing Lab: [address] [address] VITAMIN B12 552 pg/mL 200-900 Aug 07, 2023 08:12 AM [facility] CBC AND DIFF (AUTO) Specimen Type: BLOOD No comment entered. Ordering Provider: BRITTNEY ESPARZA Report Released Date/Time: Jul 30, 2023 03:58 PM Reporting Lab: [address] [address] Performing Lab: [address] [address] WBC 5.36 10*3/uL 4.50-11.00 RBC 4.97 10*6/uL 4.23-5.66 HGB 14.7 g/dL 12.8-17 HCT 44.9 39.2-50.4 MCV 90.3 fL 82-99 MCHC 32.7 g/dL 30.8-35.1 PLT 273 10*3/uL 140-360 RDW-CV 13.0 12.0-16.0 Kidder, Abs 0.59 10*3/uL 0.30-1.10 MCH 29.6 pg 26.2-32.6 Neut % 70.0 43.7-75.8 Lymph % 14.9 14.0-42.3 Kidder % 11.0 5.1-13.7 Eos % 3.2 0.4-6.8 [...] Jul 09, 2023 10:33 AM 150/90 2 [place] [facility] Social History: Smoking Status (Most current) and Tobacco Use (All prior to encounter date) This section includes the most current, and the historical, smoking and tobacco- related health factors from the [place] facility where the Encounter took place. Current Smoking Status This section includes the most current smoking, or tobacco-related health factor, from the [place] facility where the Encounter took place. Date/Time Current Smoking Status Comment [facility] Oct 31, 2022 11:30 AM VA-TOBACCO FORMER USER [place] [facility] [facility] Tobacco Use History This section includes a history of the smoking, or tobacco-related health factors, that were collected on or before the date of the Encounter. The data comes from the [place] facility where the Encounter took place. Date/Time Smoking Status/Tobac co Use Comment [facility] Oct 31, 2022 11:30 AM VA-TOBACCO QUIT 15 YRS OR MORE [place] [facility] [facility] Sep 17, 2021 03:00 PM VA-TOBACCO FORMER USER [place] [facility] [place] [facility] Sep 17, 2021 03:00 PM VA-TOBACCO QUIT 15 YRS OR MORE [facility] [place] [facility] Aug 15, 2020 10:00 AM VA-TOBACCO FORMER USER [place] [facility] [place] [facility] Aug 15, 2020 10:00 AM VA-TOBACCO QUIT 15 YRS OR MORE [facility] [place] [facility] May 12, 2019 03:07 PM VA-TOBACCO FORMER USER [place] [facility] [facility] May 12, 2019 03:07 PM VA-TOBACCO QUIT 15 YRS OR MORE [place] [facility] [place] [facility] May 31, 2018 01:08 PM VA-TOBACCO FOR[facility]ER [facility] May 31, 2018 01:08 PM VA-TOBACCO QUIT 15 YRS OR MORE [facility] Feb 16, 2017 01:33 PM QUIT TOBACCO USE > 7 YEARS AGO quit 16 years ago [facility] Nov 13, 2015 03:48 PM QUIT TOBACCO USE > 7 YEARS AGO . [facility] May 12, 2013 12:49 PM QUIT TOBACCO USE > 7 YEARS AGO quit 2001 [facility] Advance Directives: All historical and current Section Date Range: From patient's date of to the date document was created. This section includes ALL of a patient's completed or amended [place] Advance and Rescinded Directives. The entries below indicate that a directive exists for the patient, but an actual copy is not included with this document. The data comes from all [place] facilities. Date Advance Directives Provider Source Nov 03, 2022 ADVANCE DIRECTIVE LENORA CARCAMO [facility] Aug 16, 2020 ADVANCE DIRECTIVE EDMUND MORGAN [facility] Encounter Notes: All associated encounter notes This section contains the clinical notes associated to the Encounter. Date/Time Encounter Note(s) Provider Source Jul 09, 2023 10:51 AM PHYSICAL MEDICINE REHAB NOTE: LOCAL TITLE: PM&R BACK/JOINT PROCEDURE NOTE STANDARD TITLE: PHYSICAL MEDICINE REHAB NOTE DATE OF NOTE: JUL 09, 2023@10:51 ENTRY DATE: JUL 09, 2023@10:51:22 AUTHOR: KARLOS HARPER EXP COSIGNER: URGENCY: STATUS: COMPLETED PROCEDURE: Right carpal tunnel injection with cortisone. INDICATION: Carpal tunnel syndrome. INFORMED CONSENT: Obtained verbally, and through IMED. Ramseur presents today for assessment of right hand. The thumbs continue to feel better after the CMC injection. He is not experiencing a great deal of pain with hand gripping. He does have some aching periodically in the thenar region and the fingers feel stiff to him. He gets some discomfort in the palmar surface of the second and third flexor tendon sheath. His exam shows no tenderness in the snuffbox. He has some mild thickening flexor tendon of the third but not a distinct nodule. He has no demonstrable triggering. He has a positive Tinel's over the right wrist. There is some restriction in flexion extension of the right wrist. Range of motion is 10 degrees of extension with 20 degrees of flexion. Some mild thickening of the DIP joints noted without contracture. The procedure as well as potential risks and benefits of a carpal tunnel injection were discussed with patient, including potential for infection, soreness at the site of injection, nerve damage, hematoma, adverse reaction to cortisone, temporary increase in blood sugar (if applicable), and failure for the medication to be effective. Patient agreed to proceed. TIME OUT NOTE TIME:Jul@10:35 Ramseur correctly stated: [x ]Full name: CHAR TATE [x]Last 4 of #: [id number] [x ]: Jul PROVIDER NAME: Karlos Harper PA-c STAFF NAME: Clemencia Rosenberg RN Lot #:[id number] Exp:Mar 2025 Patient was seated with the right wrist in supination and slight hyperextension. Appropriate landmarks (palmaris longus and distal palmar crease) were palpated and marked. After cleaning the area with ChloroPrep x 3, the carpal tunnel space was accessed by entering the skin at 1cm proximal and 1cm ulnar to the intersection of the palmaris longus and distal palmar crease, using a 25G 5/8 needle with attached syringe. The needle tip was angled at 30 degrees distally and radially, advancing to 1cm. After negative aspiration for heme, a solution consisting of 1.5mL total of 1% lidocaine and 40mg of methylprednisolone was injected without any difficulties or resistance. The needle was withdrawn and light compression was applied with a 2x2 gauze. A band-aid was applied. No complications. No blood loss. Patient reported increased numnbess of the middle and ring fingers 5 minutes post injection. The patient tolerated the procedure well without any immediate adverse side effects. Patient was instructed on the use of ice prn post injection pain/swelling. The patient was discharged home with instructions to monitor for any adverse reactions/side effects, including increase in blood sugar, and to contact me with any issues/questions regarding the injection. Pre-procedure pain level: 10 Post-procedure pain level: 06/10 Assessment and plan: 87-year-old with mild stiffness and dysesthetic symptoms in the volar surface of the right hand due to carpal tunnel syndrome. 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 No injection necessary for the CMC at this point. Carpal tunnel injection provided today. We will follow-up in 4 months to determine need for further treatment options. Medication Reconciliation: Outpatient: Has the patient been taking medications as documented in the EMLR? YES: The patient has been taking medications as documented in the EMLR. Essential Medication List for Review used to complete this medication reconciliation. INCLUDED IN THIS LIST: Alphabetical list of active outpatient prescriptions dispensed from this [place] (local) and dispensed from another [place] or [place] facility (remote) as well as [...] whether with a VA or non-VA provider. /elizabeth/ KARLOS CAINMera Signed: 07/09/2023 11:03 KARLOS HARPER [place] [facility] [facility]
--- OUTSIDE RECORDS SUMMARY | 2024-05-16 14:04 | XMS_ITS | Encounter Summary ---
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 (WNR) MEDICARE ADVANTAGE [facility] (WNR) Jun 01, 2017 [id number] [phone] Krishan TATE PATIENT [facility] (WNR) MEDICARE ADVANTAGE [facility] (WNR) Jun 01, 2017 [id number] Krishan TATE PATIENT [facility] (WNR) MEDICARE ADVANTAGE [facility] (WNR) Jun 01, 2017 [id number] Krishan TATE PATIENT Selected Encounter This section includes the information on record at ID for the Encounter. Date/Time Encounter Type Encounter Description Reason Pro vider Source Aug 07, 2023 09:21 AM Outpatient Encounter EVENT (HISTORICAL) IHE Encounter Template Text not used by ID Plan of Treatment: Future Appointments (+ 6 [...] - MEDICINE [place] [facility] [place] [facility] Aug 26, 2023 01:00 PM AMBULATORY - MEDICINE ID [facility] [place] [facility] Sep 28, 2023 10:30 AM AMBULATORY - MEDICINE ID [facility] [place] [facility] Nov 02, 2023 11:30 AM AMBULATORY - MEDICINE ID [facility] [place] [facility] Dec 22, 2023 11:10 AM AMBULATORY - MEDICINE [place] [facility] [place] [facility] Jan 06, 2024 10:40 AM AMBULATORY - MEDICINE ID [facility] [place] [facility] Jan 12, 2024 02:30 PM AMBULATORY - MEDICINE ID [facility] [place] [facility] Jan 25, 2024 10:30 AM AMBULATORY - MEDICINE ID [facility] [place] [facility] Feb 05, 2024 11:00 AM AMBULATORY - MEDICINE ID [facility] [place] [facility] Lab Results: +/- 30 days [...] Range Comment Aug 07, 2023 08:13 AM ID [facility] [place] [facility] VITAMIN D (25-OH) Specimen Type: SERUM No comment entered. Ordering Provider: BRITTNEY ESPARZA Report Released Date/Time: Jul 30, 2023 03:58 PM Reporting Lab: [address] [address] Performing Lab: [address] [address] VITAMIN D (25-OH) 44 ng/mL 20-50 Aug 07, 2023 08:12 AM [facility] LIPID PANEL FASTING Specimen Type: SERUM No comment entered. Ordering Provider: BRITTNEY ESPARZA Report Released Date/Time: Jun 04, 2023 12:30 PM Reporting Lab: [address] [address] Performing Lab: [address] [address] CHOLESTEROL 120 mg/dL TRIGLYCERIDE 189 mg/dL H 0-150 LDL calculated 45 mg/dL 0-129 CHOL/HDL 3.2 HDL CHOLESTEROL 37 mg/dL L 40-60 Aug 07, 2023 08:12 AM [facility] LIVER FUNCTION Specimen Type: SERUM No comment entered. Ordering Provider: BRITTNEY ESPARZA Report Released Date/Time: Jun 04, 2023 12:30 PM Reporting Lab: [address] [address] Performing Lab: [address] [address] PROTEIN,TOTAL 6.5 g/dL 6.0-8.3 ALBUMIN 4.0 g/dL 3.5-5.0 ALKALINE PHOSPHATASE 49 U/L 40-150 AST 16 U/L 5-34 ALT 20 U/L BILIRUBIN, TOTAL 0.4 mg/dL 0.2-1.2 Aug 07, 2023 08:12 AM [facility] BASIC METABOLIC PANEL (fasting) Specimen Type: SERUM No comment entered. Ordering Provider: BRITTNEY ESPARZA Report Released Date/Time: Jun 04, 2023 12:30 PM Reporting Lab: [address] [place] [address] Performing Lab: [facility] [address] [facility] [address] UREA NITROGEN 15 mg/dL 7-25 GLUCOSE 106 mg/dL H 65-100 SODIUM 140 mmol/L 135-145 POTASSIUM 4.5 mmol/L 3.5-5.0 CHLORIDE 107 mmol/L 100-110 CO2 26 meq/L 20-30 CREATININE, Serum 0.82 mg/dL 0.50-1.40 eGFR(CKD-EPI 2020) 85 mL/min >60 Aug 07, 2023 08:12 AM [facility] VITAMIN B-1 (THIAMINE)-(QU) Specimen Type: PLASMA Comment: Vitamin supplementation within 24 hours prior to blood draw may affect the accuracy of the results. This test was developed and its analytical performance characteristics have been determined by [employer] [place], [place]. It has not been cleared or approved by the U.S. Food and Drug Administration. This assay has been validated pursuant to the CLIA regulations and is used for clinical purposes. Test Performed by [facility], [employer], [address] [place] [address] Dami Potts M.D., Ph.D., Director of Laboratories , CLIA [id number] TEST PERFORMED AT: , Ordering Provider: BRITTNEY ESPARZA Report Released Date/Time: Jul 30, 2023 03:58 PM Reporting Lab: [address] [address] Performing Lab: [facility] [address] [address] VITAMIN B-1 (THIAMINE)-(Q U) 29 nmol/L 8-Aug 07, 2023 08:12 AM [facility] FOLATE Specimen Type: SERUM No comment entered. Ordering Provider: BRITTNEY ESPARZA Report Released Date/Time: Jul 30, 2023 03:58 PM Reporting Lab: [address] [address] Performing Lab: [facility] [address] [facility] [address] FOLATE 14.70 ng/mL >5.2 Aug 07, 2023 08:12 AM [facility] TSH Specimen Type: SERUM No comment entered. Ordering Provider: BRITTNEY ESPARZA Report Released Date/Time: Jul 30, 2023 03:58 PM Reporting Lab: [facility] [place] [facility] [address] [facility] [address] Performing Lab: [facility]N [facility] [address] [facility] [address] TSH 2.25 u[IU]/mL 0.35-5.00 Aug 07, 2023 08:12 AM [facility] VITAMIN B12 Specimen Type: SERUM No comment entered. Ordering Provider: BRITTNEY ESPARZA Report Released Date/Time: Jul 30, 2023 03:58 PM Reporting Lab: [facility] [address] [facility] [address] Performing Lab: [facility] [address] [facility] [address] VITAMIN B12 552 pg/mL 200-900 Aug 07, 2023 08:12 AM [facility]N [facility] IRON & TIBC PANEL Specimen Type: SERUM No comment entered. Ordering Provider: BRITTNEY ESPARZA Report Released Date/Time: Jul 30, 2023 03:58 PM Reporting Lab: [facility] [address] [facility] [address] Performing Lab: [facility]ITALRGREENE [facility] HOSPITALTRN [facility]PITALUSETS [address] [address] TIBC 408 ug/dL 204-475 IRON 59 ug/dL 40-160 Transferrin Saturation 14.5 L 20.0-50.0 Aug 07, 2023 08:12 AM [facility]ITAL[facility] CBC AND DIFF (AUTO) Specimen Type: BLOOD No comment entered. Ordering Provider: BRITTNEY ESPARZA Report Released Date/Time: Jul 30, 2023 03:58 PM Reporting Lab: [facility] [address] [facility] [address] Performing Lab: [facility] HOSPITALArmando [facility]DS[facility] [address] [facility] [address] WBC 5.36 10*3/uL 4.50-11.00 RBC 4.97 10*6/uL 4.23-5.66 HGB 14.7 g/dL 12.8-17 HCT 44.9 39.2-50.4 MCV 90.3 fL 82-99 MCHC 32.7 g/dL 30.8-35.1 PLT 273 10*3/uL 140-360 RDW-CV 13.0 12.0-16.0 Sac, Abs 0.59 10*3/uL 0.30-1.10 MCH 29.6 pg 26.2-32.6 Neut % 70.0 43.7-75.8 Lymph % 14.9 14.0-42.3 Sac % 11.0 5.1-13.7 Eos % 3.2 0.4-6.8 [...] Source Aug 07, 2023 09:43 AM 142/76 [facility]N [facility] Aug 07, 2023 08:54 AM 97.2 54 181/74 16 95 4 210 37 [facility] Social History: Smoking Status (Most current) [...] took place. Date/Time Current Smoking Status Comment [facility] it Oct 31, 2022 11:30 AM VA-TOBACCO FORMER USER [place] [facility] [place] [facility] Tobacco Use History This section includes a history of the smoking, or tobacco-related health factors, that were collected on or before the date of the Encounter. The data comes from the ID facility where the Encounter took place. Date/Time Smoking Status/Tobac co Use Comment Facility Oct 31, 2022 11:30 AM VA-TOBACCO QUIT 15 YRS OR MORE ID [facility] [place] [facility] Sep 17, 2021 03:00 PM VA-TOBACCO FORMER USER ID [facility] [place] [facility] Sep 17, 2021 03:00 PM VA-TOBACCO QUIT 15 YRS OR MORE ID [facility] [place] [facility] Aug 15, 2020 10:00 AM VA-TOBACCO FORMER USER ID [facility] [place] [facility] Aug 15, 2020 10:00 AM VA-TOBACCO QUIT 15 YRS OR MORE ID [facility] [place] [facility] May 12, 2019 03:07 PM VA-TOBACCO FORMER USER ID [facility] [place] [facility] May 12, 2019 03:07 PM VA-TOBACCO QUIT 15 YRS OR MORE ID [facility] [place] [facility] May 31, 2018 01:08 PM VA-TOBACCO FORMER USER ID [facility] [place] [facility] May 31, 2018 01:08 PM VA-TOBACCO QUIT 15 YRS OR MORE ID [facility] [place] [facility] Feb 16, 2017 01:33 PM QUIT TOBACCO USE > 7 YEARS AGO quit 16 years ago ID [facility] [place] [facility] Nov 13, 2015 03:48 PM QUIT TOBACCO USE > 7 YEARS AGO . ID [facility] [place] [facility] May 12, 2013 12:49 PM QUIT TOBACCO USE > 7 YEARS AGO quit 2001 [place] [facility] [place] [facility] Advance Directives: All historical and current Section Date Range: From patient's date of to the date document was created. This section includes ALL of a patient's completed or amended [place] Advance and Rescinded Directives. The entries below indicate that a directive exists for the patient, but an actual copy is not included with this document. The data comes from all ID facilities. Date Advance Directives Provider Source Nov 03, 2022 ADVANCE DIRECTIVE LENORA CARCAMO [facility] Aug 16, 2020 ADVANCE DIRECTIVE EDMUND MORGAN [facility]
--- OUTSIDE RECORDS SUMMARY | 2024-05-16 14:05 | XMS_ITS ---
Author Name [facility] [place] Organization [facility] [place] Address [address] [place] [address] Care Team Providers Care Clinical Documentation Developer Name Role Phone KIARA ESPARZA Primary Care [...] Colbert's Name Patient's Relationship to Policy Colbert [facility] (WNR) MEDICARE ADVANTAGE [facility] (WNR) Jun 01, 2017 [id number] [phone] Krishan TATE PATIENT [facility] (WNR) MEDICARE ADVANTAGE [facility] (WNR) Jun 01, 2017 [id number] [phone] Krishan TATE PATIENT [facility] (WNR) MEDICARE ADVANTAGE [facility] (WNR) Jun 01, 2017 [id number] Krishan TATE PATIENT Selected Encounter This section includes the information on record at [place] for the Encounter. Date/Time Encounter Type Encounter Description Reason Pro vider Source October 07, 2023 12:00 AM Outpatient Encounter EVENT (HISTORICAL) IHE Encounter Template Text not used by [place] Plan of Treatment: Future Appointments (+ 6 months) and Future Tests (+/- 45 days) The Plan of Treatment section includes future care activities for the patient from all [place] treatmentfacilities. This section includes future appointments and future orders which are active, pending or scheduled. Future Appointments This section includes appointments that were scheduled to occur 6 months from the date of the Encounter, up to a maximum of 20 appointments. The data comes from all [place] treatment facilities. Appointment Date/Time Appointment Type Appointme nt Facility Name Nov 02, 2023 11:30 AM AMBULATORY - MEDICINE [place] [place] [facility] Dec 22, 2023 11:10 AM AMBULATORY - MEDICINE [place] [place] [facility] Jan 06, 2024 10:40 AM AMBULATORY - MEDICINE [place] [place] [facility] Jan 12, 2024 02:30 PM AMBULATORY - MEDICINE [place] [place] [facility] Jan 25, 2024 10:30 AM AMBULATORY - MEDICINE [place] [facility] [place] [facility] Feb 05, 2024 11:00 AM AMBULATORY - MEDICINE [place] [facility] Feb 16, 2024 11:30 AM AMBULATORY - MEDICINE [place] [place] [facility] Mar 22, 2024 10:30 AM AMBULATORY - MEDICINE [place] [facility] [place] [facility] Mar 22, 2024 10:31 AM AMBULATORY - MEDICINE [place] [facility] [place] [facility] Mar 24, 2024 02:30 PM AMBULATORY - MEDICINE [place] [facility] [place] [facility] Mar 29, 2024 10:30 AM AMBULATORY - NONE [place] [facility] [place] [facility] Apr 07, 2024 08:00 AM AMBULATORY - MEDICINE [place] [facility] [place] [facility] Active, Pending, and Scheduled Orders This section includes a listing of several types of active, pending, and scheduled orders, including clinic medications orders, diagnostic test orders, procedure orders and consult orders; where the start date of the order is 45 days before the date of the Encounter or 45 days after the date of theEncounter. The data comes from all [place] treatment facilities. Test Date/Time Test Type Test Details Facility Name October 28, 2023 12:00 AM Laboratory - Chemi stry Order VITAMIN D (25-OH) BLOOD (SST-SERUM) SP [facility] Lab Results: +/- 30 days of the encounter This section includes the Chemistry and Hematology Lab Results on record with [place] for the patient. Radiology Reports and Pathology Reports are provided separately, in subsequent sections. Lab Results This section contains the Chemistry/Hematology Results that were resulted 30 days before or 30 daysafter the date of the Encounter. Date/Time Source Result Type Result - Unit Interpretation Reference Range Comment Sep 21, 2023 08:48 AM [facility] HEMOGLOBIN A1C PANEL Specimen Type: BLOOD Comment: Values obtained from A1C measurements can vary. For atypical A1C assays, a reported value of 7.0 could actually be between 6.72 and 7.28 if measured by a reference method. A reported value of 9.0 could actually be between 8.73 and 9.27. Ref: http://www.ngs p.org/CAPdata. asp Ordering Provider: SOLOMON ESPARZA Report Released Date/Time: Jun 02, 2023 02:59 PM Reporting Lab: [facility] [address] [facility] [address] Performing Lab: [address] [address] HEMOGLOBIN A1C 5.5 4.0-5.6 Sep 21, 2023 08:48 AM [facility] BASIC METABOLIC PANEL (fasting) Specimen Type: SERUM No comment entered. Ordering Provider: SOLOMON ESPARZA Report Released Date/Time: Jun 02, 2023 02:59 PM Reporting Lab: [address] [address] Performing Lab: [address] [address] UREA NITROGEN 14 mg/dL 7-25 GLUCOSE 105 mg/dL H 65-100 SODIUM 139 mmol/L 135-145 POTASSIUM 4.6 mmol/L 3.5-5.0 CHLORIDE 105 mmol/L 100-110 CO2 26 meq/L 20-30 CREATININE, Serum 0.91 mg/dL 0.50-1.40 eGFR(CKD-EPI 2020) 82 mL/min >60 Sep 21, 2023 08:48 AM [facility] LIVER FUNCTION Specimen Type: SERUM No comment entered. Ordering Provider: SOLOMON ESPARZA F Report Released Date/Time: Jun 02, 2023 02:59 PM Reporting Lab: [facility] [address] [facility] [address] Performing Lab: [address] [address] PROTEIN,TOTAL 6.7 g/dL 6.0-8.3 ALBUMIN 4.1 g/dL 3.5-5.0 ALKALINE PHOSPHATASE 47 U/L 40-150 AST 16 U/L 5-34 ALT 20 U/L BILIRUBIN, TOTAL 0.5 mg/dL 0.2-1.2 Sep 21, 2023 08:48 AM [facility] LIPID PANEL FASTING Specimen Type: SERUM No comment entered. Ordering Provider: SOLOMON ESPARZA Report Released Date/Time: Jun 02, 2023 02:59 PM Reporting Lab: [facility] [address] [facility] [address] Performing Lab: [address] [address] CHOLESTEROL 109 mg/dL TRIGLYCERIDE 202 mg/dL H 0-150 LDL calculated 36 mg/dL 0-129 CHOL/HDL 3.3 HDL CHOLESTEROL 33 mg/dL L 40-60 Social History: Smoking Status (Most current) and Tobacco Use (All prior to encounter date) This section includes the most current, and the historical, smoking and tobacco- related health factors from the [place] facility where the Encounter took place. Current Smoking Status This section includes the most current smoking, or tobacco-related health factor, from the [place] facility where the Encounter took place. Date/Time Current Smoking Status Comment Facil nilda Oct 31, 2022 11:30 AM [facility] Tobacco Use History This section includes a history of the smoking, or tobacco-related health factors, that were collected on or before the date of the Encounter. The data comes from the [place] facility where the Encounter took place. Date/Time Smoking Status/Tobac co Use Comment Facility Oct 31, 2022 11:30 AM VA-TOBACCO QUIT 15 YRS OR MORE [place] [facility] [place] [facility] Sep 17, 2021 03:00 PM VA-TOBACCO FORMER USER [place] [facility] [facility] Sep 17, 2021 03:00 PM VA-TOBACCO QUIT 15 YRS OR MORE [place] [facility] [place] [facility] Aug 15, 2020 10:00 AM VA-TOBACCO FORMER USER [place] [facility] [facility] Aug 15, 2020 10:00 AM VA-TOBACCO QUIT 15 YRS OR MORE [place] [facility] [facility] May 12, 2019 03:07 PM VA-TOBACCO FORMER USER [place] [facility] [place] [facility] May 12, 2019 03:07 PM VA-TOBACCO QUIT 15 YRS OR MORE [place] [facility] [facility] May 31, 2018 01:08 PM VA-TOBACCO FORMER USER [place] [facility] [facility] May 31, 2018 01:08 PM VA-TOBACCO QUIT 15 YRS OR MORE [place] [facility] [facility] Feb 16, 2017 01:33 PM QUIT TOBACCO USE > 7 YEARS AGO quit 16 years ago [place] [facility] [place] [facility] Nov 13, 2015 03:48 PM QUIT TOBACCO USE > 7 YEARS AGO . [place] [facility] [place] [facility] May 12, 2013 12:49 PM QUIT TOBACCO USE > 7 YEARS AGO quit 2001 [place] [facility] [place] [facility] Advance Directives: All historical and current Section Date Range: From patient's date of to the date document was created. This section includes ALL of a patient's completed or amended [place] Advance and Rescinded Directives. The entries below indicate that a directive exists for the patient, but an actual copy is not included with this document. The data comes from all [place] facilities. Date Advance Directives Provider Source Nov 03, 2022 ADVANCE DIRECTIVE LENORA CARCAMO [facility] Aug 16, 2020 ADVANCE DIRECTIVE ROBERTEDMUND BRASHER [facility] Encounter Notes: All associated encounter notes This section contains the clinical notes associated to the Encounter. Date/Time Encounter Note(s) Provider Source October 07, 2023 12:00 AM NONVA NOTE: LOCAL TITLE: NON-VA OUTPATIENT NOTES STANDARD TITLE: NONVA NOTE DATE OF NOTE: OCTOBER 07, 2023 ENTRY DATE: OCTOBER 07, 2023@10:49:49 AUTHOR: RL LAINEZ EXP COSIGNER: URGENCY: STATUS: COMPLETED VistA Imaging - Scanned Document SCANNED DOCUMENT SIGNATURE NOT REQUIRED Electronically Filed: 10/07/2023 by: RL JULIO [facility]
--- OUTSIDE RECORDS SUMMARY | 2024-05-16 14:05 | XMS_ITS | Encounter Summary ---
Author Name [facility] [facility] [place] Address [address] [place] [address] Care Team Providers Care Solar Sales Representative Name Role Phone KIARA ESPARZA Primary Care [...] Colbert's Name Patient's Relationship to Policy Colbert [facility] (WNR) MEDICARE ADVANTAGE [facility] (WNR) Jun 01, 2017 [id number] [phone] [facility] (WNR) MEDICARE ADVANTAGE [facility] (WNR) Jun 01, 2017 [id number] Krishan TATE PATIENT [facility] (WNR) MEDICARE ADVANTAGE [facility] (WNR) Jun 01, 2017 [id number] Krishan TATE PATIENT Selected Encounter This section includes the information on record at [place] for the Encounter. Date/Time Encounter Type Encounter Description Reason Provider Source Aug 26, 2023 01:00 PM TRIM NAIL(S) PODIATRY ICD-10-CM L60.3 Nail dystrophy DONAVAN FLORES [facility] Encounter Template Text not used by [place] Assessments - Encounter Diagnoses This section includes the primary and secondary diagnoses documented for the Encounter. Date/Time Primary/Secondary Diagnosis Diagnosis Name Provider Source Aug 26, 2023 01:25 PM PRIMARY Nail dystrophy [facility] [place] [facility] Plan of Treatment: Future Appointments (+ 6 months) and Future Tests (+/- 45 days) The Plan of Treatment section includes future care activities for the patient from all [place] treatmentfacilities. This section includes future appointments and future orders which are active, pending or scheduled. Future Appointments This section includes appointments that were scheduled to occur 6 months from the date of the Encounter, up to a maximum of 20 appointments. The data comes from all [place] treatment facilities. Appointment Date/Time Appointment Type Appointme nt Facility Name Sep 28, 2023 10:30 AM AMBULATORY - MEDICINE [place] [facility] [place] [facility] Nov 02, 2023 11:30 AM AMBULATORY - MEDICINE [place] [facility] [place] [facility] Dec 22, 2023 11:10 AM AMBULATORY - MEDICINE [place] [facility] [place] [facility] Jan 06, 2024 10:40 AM AMBULATORY - MEDICINE [place] [facility] [place] [facility] Jan 12, 2024 02:30 PM AMBULATORY - MEDICINE [place] [facility] [place] [facility] Jan 25, 2024 10:30 AM AMBULATORY - MEDICINE [place] [facility] [place] [facility] Feb 05, 2024 11:00 AM AMBULATORY - MEDICINE [place] [facility] [place] [facility] Feb 16, 2024 11:30 AM AMBULATORY - MEDICINE [place] [facility] [place] [facility] Lab Results: +/- 30 days of the encounter This section includes the Chemistry and Hematology Lab Results on record with [place] for the patient. Radiology Reports and Pathology Reports are provided separately, in subsequent sections. Lab Results This section contains the Chemistry/Hematology Results that were resulted 30 days before or 30 daysafter the date of the Encounter. Date/Time Source Result Type Result - Unit Interpretation Reference Range Comment Sep 21, 2023 08:48 AM [facility] HEMOGLOBIN A1C PANEL Specimen Type: BLOOD Comment: Values obtained from A1C measurements can vary. For atypical A1C assays, a reported value of 7.0 could actually be between 6.72 and 7.28 if measured by a reference method. A reported value of 9.0 could actually be between 8.73 and 9.27. Ref: [email or web address] [email or web address] Ordering Provider: BRITTNEY ESPARZA Report Released Date/Time: Jun 02, 2023 02:59 PM Reporting Lab: [address] [address] Performing Lab: [address] [address] HEMOGLOBIN A1C 5.5 4.0-5.6 Sep 21, 2023 08:48 AM [facility] LIPID PANEL FASTING Specimen Type: SERUM No comment entered. Ordering Provider: BRITTNEY ESPARZA Report Released Date/Time: Jun 02, 2023 02:59 PM Reporting Lab: [address] [address] Performing Lab: [address] [address] CHOLESTEROL 109 mg/dL TRIGLYCERIDE 202 mg/dL H 0-150 LDL calculated 36 mg/dL 0-129 CHOL/HDL 3.3 HDL CHOLESTEROL 33 mg/dL L 40-60 Sep 21, 2023 08:48 AM [facility] LIVER FUNCTION Specimen Type: SERUM No comment entered. Ordering Provider: BRITTNEY ESPARZA Report Released Date/Time: Jun 02, 2023 02:59 PM Reporting Lab: [address] [address] Performing Lab: [address] [address] PROTEIN,TOTAL 6.7 g/dL 6.0-8.3 ALBUMIN 4.1 g/dL 3.5-5.0 ALKALINE PHOSPHATASE 47 U/L 40-150 AST 16 U/L 5-34 ALT 20 U/L BILIRUBIN, TOTAL 0.5 mg/dL 0.2-1.2 Sep 21, 2023 08:48 AM [facility] BASIC METABOLIC PANEL (fasting) Specimen Type: SERUM No comment entered. Ordering Provider: BRITTNEY ESPARZA Report Released Date/Time: Jun 02, 2023 02:59 PM Reporting Lab: [facility] [address] [facility] [address] Performing Lab: [address] [address] UREA NITROGEN 14 mg/dL 7-25 GLUCOSE 105 mg/dL H 65-100 SODIUM 139 mmol/L 135-145 POTASSIUM 4.6 mmol/L 3.5-5.0 CHLORIDE 105 mmol/L 100-110 CO2 26 meq/L 20-30 CREATININE, Serum 0.91 mg/dL 0.50-1.40 eGFR(CKD-EPI 2020) 82 mL/min >60 Aug 07, 2023 08:13 AM [facility] VITAMIN D (25-OH) Specimen Type: SERUM No comment entered. Ordering Provider: BRITTNEY ESPARZA Report Released Date/Time: Jul 30, 2023 03:58 PM Reporting Lab: [address] [address] Performing Lab: [address] [address] VITAMIN D (25-OH) 44 ng/mL 20-50 Aug 07, 2023 08:12 AM [facility] LIPID PANEL FASTING Specimen Type: SERUM No comment entered. Ordering Provider: BRITTNEY ESPARZA Report Released Date/Time: Jun 04, 2023 12:30 PM Reporting Lab: [facility] [address] [facility] [address] Performing Lab: [address] [address] CHOLESTEROL 120 mg/dL TRIGLYCERIDE 189 mg/dL H 0-150 LDL calculated 45 mg/dL 0-129 CHOL/HDL 3.2 HDL CHOLESTEROL 37 mg/dL L 40-60 Aug 07, 2023 08:12 AM [facility] LIVER FUNCTION Specimen Type: SERUM No comment entered. Ordering Provider: BRITTNEY ESPARZA Report Released Date/Time: Jun 04, 2023 12:30 PM Reporting Lab: [address] [address] Performing Lab: [address] [address] PROTEIN,TOTAL 6.5 g/dL 6.0-8.3 ALBUMIN 4.0 g/dL 3.5-5.0 ALKALINE PHOSPHATASE 49 U/L 40-150 AST 16 U/L 5-34 ALT 20 U/L BILIRUBIN, TOTAL 0.4 mg/dL 0.2-1.2 Aug 07, 2023 08:12 AM [facility] BASIC METABOLIC PANEL (fasting) Specimen Type: SERUM No comment entered. Ordering Provider: BRITTNEY ESPARZA Report Released Date/Time: Jun 04, 2023 12:30 PM Reporting Lab: [address] [address] Performing Lab: [address] [address] UREA NITROGEN 15 mg/dL 7-25 GLUCOSE 106 mg/dL H 65-100 SODIUM 140 mmol/L 135-145 POTASSIUM 4.5 mmol/L 3.5-5.0 CHLORIDE 107 mmol/L 100-110 CO2 26 meq/L 20-30 CREATININE, Serum 0.82 mg/dL 0.50-1.40 eGFR(CKD-EPI 2020) 85 mL/min >60 Aug 07, 2023 08:12 AM [facility] VITAMIN B-1 (THIAMINE)-(QU) Specimen Type: PLASMA Comment: Vitamin supplementation within 24 hours prior to blood draw may affect the accuracy of the results. This test was developed and its analytical performance characteristics have been determined by [employer] [place], [place]. It has not been cleared or approved by the U.S. Food and Drug Administration. This assay has been validated pursuant to the CLIA regulations and is used for clinical purposes. Test Performed by [facility], [facility], [address] [place] [address] Dami Potts M.D., Ph.D., Director of Laboratories , CLIA [id number] TEST PERFORMED AT: , Ordering Provider: BRITTNEY ESPARZA Report Released Date/Time: Jul 30, 2023 03:58 PM Reporting Lab: [facility] [address] Performing Lab: [facility] [address] [address] VITAMIN B-1 (THIAMINE)-(Q U) 29 nmol/L 8-30 Aug 07, 2023 08:12 AM [facility] FOLATE Specimen Type: SERUM No comment entered. Ordering Provider: BRITTNEY ESPARZA Report Released Date/Time: Jul 30, 2023 03:58 PM Reporting Lab: [facility] [address] [facility] [address] Performing Lab: [facility] [address] [facility] [address] FOLATE 14.70 ng/mL >5.2 Aug 07, 2023 08:12 AM [facility] TSH Specimen Type: SERUM No comment entered. Ordering Provider: BRITTNEY ESPARZA Report Released Date/Time: Jul 30, 2023 03:58 PM Reporting Lab: [facility] [address] [facility] [address] Performing Lab: [facility] [address] [facility] [address] TSH 2.25 u[IU]/mL 0.35-5.00 Aug 07, 2023 08:12 AM [facility] VITAMIN B12 Specimen Type: SERUM No comment entered. Ordering Provider: BRITTNEY ESPARZA Report Released Date/Time: Jul 30, 2023 03:58 PM Reporting Lab: [address] [address] Performing Lab: [address] [address] VITAMIN B12 552 pg/mL 200-900 Aug 07, 2023 08:12 AM [facility] IRON & TIBC PANEL Specimen Type: SERUM No comment entered. Ordering Provider: BRITTNEY ESPARZA Report Released Date/Time: Jul 30, 2023 03:58 PM Reporting Lab: [address] [address] Performing Lab: [address] [address] TIBC 408 ug/dL 204-475 IRON 59 ug/dL 40-160 Transferrin Saturation 14.5 L 20.0-50.0 Aug 07, 2023 08:12 AM [facility] CBC AND DIFF (AUTO) Specimen Type: BLOOD No comment entered. Ordering Provider: BRITTNEY ESPARZA Report Released Date/Time: Jul 30, 2023 03:58 PM Reporting Lab: [address] [address] Performing Lab: [address] [address] WBC 5.36 10*3/uL 4.50-11.00 RBC 4.97 10*6/uL 4.23-5.66 HGB 14.7 g/dL 12.8-17 HCT 44.9 39.2-50.4 MCV 90.3 fL 82-99 MCHC 32.7 g/dL 30.8-35.1 PLT 273 10*3/uL 140-360 RDW-CV 13.0 12.0-16.0 [place], Abs 0.59 10*3/uL 0.30-1.10 MCH 29.6 pg 26.2-32.6 Neut % 70.0 43.7-75.8 Lymph % 14.9 14.0-42.3 [place] % 11.0 5.1-13.7 Eos % 3.2 0.4-6.8 [...] and tobacco- related health factors from the [place] facility where the Encounter took place. Current Smoking Status This section includes the most current smoking, or tobacco-related health factor, from the [place] facility where the Encounter took place. Date/Time Current Smoking Status Comment [facility] Oct 31, 2022 11:30 AM VA-TOBACCO FORMER USER [place] [facility] [place] [facility] Tobacco Use History This section includes a history of the smoking, or tobacco-related health factors, that were collected on or before the date of the Encounter. The data comes from the [place] facility where the Encounter took place. Date/Time Smoking Status/Tobac co Use Comment [facility] Oct 31, 2022 11:30 AM VA-TOBACCO QUIT 15 YRS OR MORE DE [facility] [place] [facility] Sep 17, 2021 03:00 PM VA-TOBACCO FORMER USER [place] [facility] [place] [facility] Sep 17, 2021 03:00 PM VA-TOBACCO QUIT 15 YRS OR MORE [facility] [place] [facility] Aug 15, 2020 10:00 AM VA-TOBACCO FORMER USER [facility] [place] [facility] Aug 15, 2020 10:00 AM VA-TOBACCO QUIT 15 YRS OR MORE [facility] [place] [facility] May 12, 2019 03:07 PM VA-TOBACCO FORMER USER [facility] [place] [facility] May 12, 2019 03:07 PM VA-TOBACCO QUIT 15 YRS OR MORE [place] [facility] [place] [facility] May 31, 2018 01:08 PM VA-TOBACCO FORMER USER [facility] May 31, 2018 01:08 PM VA-TOBACCO QUIT 15 YRS OR MORE [facility] Feb 16, 2017 01:33 PM QUIT TOBACCO USE > 7 YEARS AGO quit 16 years ago [facility] Nov 13, 2015 03:48 PM QUIT TOBACCO USE > 7 YEARS AGO . [facility] May 12, 2013 12:49 PM QUIT TOBACCO USE > 7 YEARS AGO quit 2001 [facility] Advance Directives: All historical and current Section Date Range: From patient's date of to the date document was created. This section includes ALL of a patient's completed or amended [place] Advance and Rescinded Directives. The entries below indicate that a directive exists for the patient, but an actual copy is not included with this document. The data comes from all [place] facilities. Date Advance Directives Provider Source Nov 03, 2022 ADVANCE DIRECTIVE LENORA CARCAMO [facility] Aug 16, 2020 ADVANCE DIRECTIVE EDMUND MORGAN [facility] Encounter Notes: All associated encounter notes This section contains the clinical notes associated to the Encounter. Date/Time Encounter Note(s) Provider Source Aug 26, 2023 01:22 PM NURSING OUTPATIENT NOTE: LOCAL TITLE: NURSING/SPECIALTY CLINIC NOTE STANDARD TITLE: NURSING OUTPATIENT NOTE DATE OF NOTE: AUG 26, 2023@13:22 ENTRY DATE: AUG 26, 2023@13:22:59 AUTHOR: DONAVAN FLORES EXP COSIGNER: URGENCY: STATUS: COMPLETED [place] [facility] continued [...] to distal Pedal skin: [x ] Intact [x ] Dry [ ] Cracked [ ] Discolored [...] ] Peripheral vascular disease [ ] Neuropathy [x ] Onychomycosis [x ] Dystrophic toenails [ ] Hyperkeratosis/calluses [x ] Xerosis/dry skin [ ] Other: Treatment: [x ] Nails x 10 debrided in length and thickness without incident [ ] Hyperkeratotic lesions were grinded down with eletric pulp grinder and debrided without incidence. [x ]Patient education educated about proper foot and encouraged to check feet daily for injuries and wounds [x ] Instructed to moisturize feet daily but not in-between toes Patient is to RTC in 2 months. /elizabeth/ DONAVAN FLORES LPN LICENSED PRACTICAL NURSE Signed: 08/26/2023 13:26 Receipt Acknowledged By: 08/26/2023 17:54 /elizabeth/ KAREN HOUSE DPM PODIATRY ATTENDING [facility] FL[facility]ES [facility]
--- OUTSIDE RECORDS SUMMARY | 2024-05-16 14:05 | XMS_ITS | Encounter Summary ---
Author Name [place] Address [address] [place] [address] Care Team Providers Care Global Sales Manager Name Role Phone LUIS F CASH Primary [...] Name Patient's Relationship to Policy Colbert BCBS [facility] (WNR) MEDICARE ADVANTAGE [facility] (WNR) Jun 01, 2017 [id number] [phone] Krishan TATE PATIENT BCBS [facility] (WNR) MEDICARE ADVANTAGE [facility] (WNR) Jun 01, 2017 [id number] Krishan TATE PATIENT BCBS [facility] (WNR) MEDICARE ADVANTAGE [facility] (WNR) Jun 01, 2017 [id number] [phone] Krishan TATE PATIENT Selected Encounter This section includes the information on record at CT for the Encounter. Date/Time Encounter Type Encounter Description Reason Pro vider Source Nov 26, 2023 08:45 AM Outpatient Encounter ADMIN PAT ACTIVTIES (MASNONCT) IHE Encounter Template Text not used by CT Plan of Treatment: Future Appointments (+ 6 months) and Future Tests (+/- 45 days) The Plan of Treatment section includes future care activities for the patient from all CT treatmentfacilities. This section includes future appointments and future orders which are active, pending or scheduled. Future Appointments This section includes appointments that were scheduled to occur 6 months from the date of the Encounter, up to a maximum of 20 appointments. The data comes from all CT treatment facilities. Appointment Date/Time Appointment Type Appointme nt Facility Name Dec 22, 2023 11:10 AM AMBULATORY - MEDICINE [place] [facility] [place] [facility] Jan 06, 2024 10:40 AM AMBULATORY - MEDICINE [place] [facility] [place] [facility] Jan 12, 2024 02:30 PM AMBULATORY - MEDICINE [place] [facility] [place] [facility] Jan 25, 2024 10:30 AM AMBULATORY - MEDICINE [place] [facility] [place] [facility] Feb 05, 2024 11:00 AM AMBULATORY - MEDICINE [place] [facility] [place] [facility] Feb 16, 2024 11:30 AM AMBULATORY - MEDICINE [place] [facility] [place] [facility] Mar 22, 2024 10:30 AM AMBULATORY - MEDICINE [place] [facility] [place] [facility] Mar 22, 2024 10:31 AM AMBULATORY - MEDICINE [place] [facility] [place] [facility] Mar 24, 2024 02:30 PM AMBULATORY - MEDICINE [place] [facility] [place] [facility] Mar 29, 2024 10:30 AM AMBULATORY - NONE [facility] [place] [facility] Apr 07, 2024 08:00 AM AMBULATORY - MEDICINE [place] [facility] [place] [facility] Apr 20, 2024 10:40 AM AMBULATORY - MEDICINE [place] [facility] [place] [facility] May 09, 2024 10:30 AM AMBULATORY - MEDICINE [place] [facility] [place] [facility] May 16, 2024 02:15 PM AMBULATORY - MEDICINE [place] [facility] [place] [facility] Active, Pending, and Scheduled Orders This section includes a listing of several types of active, pending, and scheduled orders, including clinic medications orders, diagnostic test orders, procedure orders and consult orders; where the start date of the order is 45 days before the date of the Encounter or 45 days after the date of theEncounter. The data comes from all CT treatment facilities. Test Date/Time Test Type Test Details Facility Name October 28, 2023 12:00 AM Laboratory - Chemi stry Order VITAMIN D (25-OH) BLOOD (SST-SERUM) SP [facility] Social History: Smoking Status (Most current) and Tobacco Use (All prior to encounter date) This section includes the most current, and the historical, smoking and tobacco- related health factors from the CT facility where the Encounter took place. Current Smoking Status This section includes the most current smoking, or tobacco-related health factor, from the [place] facility where the Encounter took place. Date/Time Current Smoking Status Comment [facility] it Oct 31, 2022 11:30 AM VA-TOBACCO FORMER USER [facility] Tobacco Use History This section includes a history of the smoking, or tobacco-related health factors, that were collected on or before the date of the Encounter. The data comes from the [place] facility where the Encounter took place. Date/Time Smoking Status/Tobac co Use Comment Facility Oct 31, 2022 11:30 AM VA-TOBACCO QUIT [address] [facility] [place] [facility] Sep 17, 2021 03:00 PM VA-TOBACCO FORMER USER CT [facility] [place] [facility] Sep 17, 2021 03:00 PM VA-TOBACCO QUIT [address] [facility] [place] [facility] Aug 15, 2020 10:00 AM VA-TOBACCO FORMER USER CT [facility] [place] [facility] Aug 15, 2020 10:00 AM VA-TOBACCO QUIT [address] [facility] [place] [facility] May 12, 2019 03:07 PM VA-TOBACCO FORMER USER CT [facility] [place] [facility] May 12, 2019 03:07 PM VA-TOBACCO QUIT [address] [facility] [place] [facility] May 31, 2018 01:08 PM [facility]ACCO [facility] May 31, 2018 01:08 PM VA-TOBACCO QUIT 15 YRS OR MORE [facility] Feb 16, 2017 01:33 PM QUIT TOBACCO USE > 7 YEARS AGO quit 16 years ago [facility] Nov 13, 2015 03:48 PM QUIT TOBACCO USE > 7 YEARS AGO . [facility] May 12, 2013 12:49 PM QUIT TOBACCO USE > 7 YEARS AGO quit 2001 [facility] Advance Directives: All historical and current Section Date Range: From patient's date of to the date document was created. This section includes ALL of a patient's completed or amended CT Advance and Rescinded Directives. The entries below indicate that a directive exists for the patient, but an actual copy is not included with this document. The data comes from all CT facilities. Date Advance Directives Provider Source Nov 03, 2022 ADVANCE DIRECTIVE LENORA CARCAMO [facility] Aug 16, 2020 ADVANCE DIRECTIVE EDMUND MORGAN [facility] Encounter Notes: All associated encounter notes This section contains the clinical notes associated to the Encounter. Date/Time Encounter Note(s) Provider Source Nov 26, 2023 08:45 AM PHARMACY NOTE: LOCAL TITLE: PHARMACY CUSTOMER CARE MEDICATION RENEWAL STANDARD TITLE: PHARMACY NOTE DATE OF NOTE: NOV 26, 2023@08:45 ENTRY DATE: NOV 26, 2023@08:45:54 AUTHOR: WINTER JESSICA EXP COSIGNER: URGENCY: STATUS: COMPLETED Date: Oct Division: [facility] Pt referred by Pharmacy Call Center for medication renewal: Non-controlled/maintenan ce medication Medications requested: [id number] FERROUS SULFATE 325MG TAB Defer to primary care provider To be mailed . Please review and renew if appropriate. *This note was generated by [facility] Pharmacy Customer Care. If you have any questions or need assistance, do not contact this author. Please refer all questions to your local, on-site pharmacy departments. /elizabeth/ WINTER JESSICA Cpht [employer] Can Collector, [place]/Pharmacy Customer Care Signed: 11/26/2023 08:46 Receipt Acknowledged By: 11/26/2023 11:29 /es/ JANES DALLAS, KIAH REGISTERED NURSE 11/26/2023 11:28 /es/ Luis F Cash PA-C STAFF PHYSICIAN DRUMS TEACHER WINTER JESSICA CNTL [facility]
--- OUTSIDE RECORDS SUMMARY | 2024-05-16 14:05 | XMS_ITS | Encounter Summary ---
Author Name [facility] [place] Address [address] [place] [address] Care Team Providers Care Compound Filler Name Role Phone KIARA ESPARZA Primary Care [...] Colbert's Name Patient's Relationship to Policy Colbert [facility] (WNR) MEDICARE ADVANTAGE [facility] (WNR) Jun 01, 2017 [id number] [phone] Krishan TATE PATIENT [facility] (WNR) MEDICARE ADVANTAGE [facility] (WNR) Jun 01, 2017 [id number] Krishan TATE PATIENT [facility] (WNR) MEDICARE ADVANTAGE [facility] (WNR) Jun 01, 2017 [id number] [phone] Krishan TATE PATIENT Selected Encounter This section includes the information on record at [place] for the Encounter. Date/Time Encounter Type Encounter Description Reason Pro vider Source Dec 10, 2023 10:30 AM Outpatient Encounter PM&RS PHYSICIAN IHE Encounter Template Text not used by [place] Plan of Treatment: Future Appointments (+ 6 months) and Future Tests (+/- 45 days) The Plan of Treatment section includes future care activities for the patient from all [place] treatmentfacilities. This section includes future appointments and future orders which are active, pending or scheduled. Future Appointments This section includes appointments that were scheduled to occur 6 months from the date of the Encounter, up to a maximum of 20 appointments. The data comes from all [place] treatment facilities. Appointment Date/Time Appointment Type Appointme nt Facility Name Dec 22, 2023 11:10 AM AMBULATORY - MEDICINE [facility] [place] [facility] Jan 06, 2024 10:40 AM AMBULATORY - MEDICINE [facility] [place] [facility] Jan 12, 2024 02:30 PM AMBULATORY - MEDICINE [facility] [place] [facility] Jan 25, 2024 10:30 AM AMBULATORY - MEDICINE [facility] [place] [facility] Feb 05, 2024 11:00 AM AMBULATORY - MEDICINE [facility] [place] [facility] Feb 16, 2024 11:30 AM AMBULATORY - MEDICINE [facility] [place] [facility] Mar 22, 2024 10:30 AM AMBULATORY - MEDICINE [facility] [place] [facility] Mar 22, 2024 10:31 AM AMBULATORY - MEDICINE [facility] [place] [facility] Mar 24, 2024 02:30 PM AMBULATORY - MEDICINE [facility] [place] [facility] Mar 29, 2024 10:30 AM AMBULATORY - NONE [facility] [place] [facility] Apr 07, 2024 08:00 AM AMBULATORY - MEDICINE [facility] [place] [facility] Apr 20, 2024 10:40 AM AMBULATORY - MEDICINE [facility] [place] [facility] May 09, 2024 10:30 AM AMBULATORY - MEDICINE [facility] [place] [facility] May 16, 2024 02:15 PM AMBULATORY - MEDICINE [facility] [place] [facility] Jun 03, 2024 03:00 PM AMBULATORY - MEDICINE [facility] Active, Pending, and Scheduled Orders This section includes a listing of several types of active, pending, and scheduled orders, including clinic medications orders, diagnostic test orders, procedure orders and consult orders; where the start date of the order is 45 days before the date of the Encounter or 45 days after the date of theEncounter. The data comes from all [place] treatment facilities. Test Date/Time Test Type Test Details Facility Name October 28, 2023 12:00 AM Laboratory - Chemi stry Order VITAMIN D (25-OH) BLOOD (SST-SERUM) [facility] Social History: Smoking Status (Most current) and Tobacco Use (All prior to encounter date) This section includes the most current, and the historical, smoking and tobacco- related health factors from the [place] facility where the Encounter took place. Current Smoking Status This section includes the most current smoking, or tobacco-related health factor, from the [place] facility where the Encounter took place. Date/Time Current Smoking Status Comment Facil it Oct 31, 2022 11:30 AM VA-TOBACCO [facility] Tobacco Use History This section includes a history of the smoking, or tobacco-related health factors, that were collected on or before the date of the Encounter. The data comes from the [place] facility where the Encounter took place. Date/Time Smoking Status/Tobac co Use Comment Facility Oct 31, 2022 11:30 AM VA-TOBACCO QUIT 15 YRS OR MORE [place] [facility] [place] [facility] Sep 17, 2021 03:00 PM VA-TOBACCO FORMER USER [place] [facility] [place] [facility] Sep 17, 2021 03:00 PM VA-TOBACCO QUIT 15 YRS OR MORE [place] [facility] [place] [facility] Aug 15, 2020 10:00 AM VA-TOBACCO FORMER USER [place] [facility] [place] [facility] Aug 15, 2020 10:00 AM VA-TOBACCO QUIT 15 YRS OR MORE [place] [facility] [place] [facility] May 12, 2019 03:07 PM VA-TOBACCO FORMER USER [place] [facility] [place] [facility] May 12, 2019 03:07 PM VA-TOBACCO QUIT 15 YRS OR MORE [facility] May 31, 2018 01:08 PM VA-TOBACCO FORMER USER [place] [facility] May 31, 2018 01:08 PM VA-TOBACCO QUIT 15 YRS OR MORE [place] [facility] Feb 16, 2017 01:33 PM QUIT TOBACCO USE > 7 YEARS AGO quit [facility] ago [facility] Nov 13, 2015 03:48 PM QUIT TOBACCO USE > 7 YEARS AGO . [place] [facility] May 12, 2013 12:49 PM QUIT TOBACCO USE > 7 YEARS AGO quit 2001 [facility] Advance Directives: All historical and current Section Date Range: From patient's date of to the date document was created. This section includes ALL of a patient's completed or amended [place] Advance and Rescinded Directives. The entries below indicate that a directive exists for the patient, but an actual copy is not included with this document. The data comes from all [place] facilities. Date Advance Directives Provider Source Nov 03, 2022 ADVANCE DIRECTIVE LENORA CARCAMO [facility] Aug 16, 2020 ADVANCE DIRECTIVE EDMUND MORGAN [facility] Encounter Notes: All associated encounter notes This section contains the clinical notes associated to the Encounter. Date/Time Encounter Note(s) Provider Source Dec 09, 2023 09:23 AM TELEPHONE ENCOUNTE R NOTE: LOCAL TITLE: TELEPHONE NOTE/SPECIALTY CLINIC STANDARD TITLE: TELEPHONE ENCOUNTER NOTE DATE OF NOTE: DEC 09, 2023@09:23 ENTRY DATE: DEC 09, 2023@09:24:01 AUTHOR: LEELEE OLIVERA EXP COSIGNER: URGENCY: STATUS: COMPLETED TELEPHONE NOTE/SPECIALTY CLINIC Has ADDENDA called to cancel appointment for hand injection. is questioning whether he needs this or not, since he has not been experiencing any issues. Please call Amonate to discuss. Ok to leave detailed message. /elizabeth/ LEELEE OLIVERA LEAD SWAGE TENDER Signed: 12/09/2023 09:25 Receipt Acknowledged By: 12/09/2023 10:02 /elizabeth/ Clemencia Rosenberg RN Med Rehab 12/26/2023 07:33 /es/ GAIL HARPER [facility] 12/09/2023 ADDENDUM STATUS: COMPLETED Vet informed appt not needed if he is not having issues or pain, he was intructed to call if needed in the future. /elizabeth/ Clemencia oRsenberg RN Med Rehab Signed: 12/09/2023 10:02 LEELEE OLIVERA [facility]
--- OUTSIDE RECORDS SUMMARY | 2024-05-16 14:05 | XMS_ITS | Encounter Summary ---
Author Name [facility] [place] [facility] [place] Address [address] [place] [address] Care Team Providers Care Control Systems Developer Name Role Phone KIARA ESPARZA Primary [...] Name Patient's Relationship to Policy Colbert [facility] (WNR) MEDICARE ADVANTAGE [facility] (WNR) Jun 01, 2017 [id number] Krishan TATE PATIENT [employer] [facility] (WNR) MEDICARE ADVANTAGE [facility] (WNR) Jun 01, 2017 [id number] Krishan TATE PATIENT [employer] [facility] (WNR) MEDICARE ADVANTAGE [facility] (WNR) Jun 01, 2017 [id number] Krishan TATE PATIENT Selected Encounter This section includes the information on record at [place] for the Encounter. Date/Time Encounter Type Encounter Description Reason Pro vider Source October 23, 2023 10:05 AM Outpatient Encounter ADMIN PAT ACTIVTIES (MASNONCT) IHE Encounter Template Text not used by [place] Plan of Treatment: Future Appointments (+ 6 months) and Future Tests (+/- 45 days) The Plan of Treatment section includes future care activities for the patient from all [place] treatmentfacilities. This section includes future appointments and future orders which are active, pending or scheduled. Future Appointments This section includes appointments that were scheduled to occur 6 months from the date of the Encounter, up to a maximum of 20 appointments. The data comes from all [place] treatment facilities. Appointment Date/Time Appointment Type Appointme nt Facility Name Nov 02, 2023 11:30 AM AMBULATORY - MEDICINE [facility] [place] [facility] Dec 22, 2023 11:10 AM AMBULATORY - MEDICINE [facility] [place] [facility] Jan 06, 2024 10:40 AM AMBULATORY - MEDICINE [facility] [place] [facility] Jan 12, 2024 02:30 PM AMBULATORY - MEDICINE [facility] [place] [facility] Jan 25, 2024 10:30 AM AMBULATORY - MEDICINE [facility] [place] [facility] Feb 05, 2024 11:00 AM AMBULATORY - MEDICINE [facility] [place] [facility] Feb 16, 2024 11:30 AM AMBULATORY - MEDICINE [facility] [place] [facility] Mar 22, 2024 10:30 AM AMBULATORY - MEDICINE [facility] [place] [facility] Mar 22, 2024 10:31 AM AMBULATORY - MEDICINE [facility] [place] [facility] Mar 24, 2024 02:30 PM AMBULATORY - MEDICINE [facility] [place] [facility] Mar 29, 2024 10:30 AM AMBULATORY - NONE [facility] [place] [facility] Apr 07, 2024 08:00 AM AMBULATORY - MEDICINE [facility] [place] [facility] Apr 20, 2024 10:40 AM AMBULATORY - MEDICINE [facility] [place] [facility] Active, Pending, and Scheduled Orders This section includes a listing of several types of active, pending, and scheduled orders, including clinic medications orders, diagnostic test orders, procedure orders and consult orders; where the start date of the order is 45 days before the date of the Encounter or 45 days after the date of theEncounter. The data comes from all [place] treatment facilities. Test Date/Time Test Type Test Details Facility Name October 28, 2023 12:00 AM Laboratory - Chemi stry Order VITAMIN D (25-OH) BLOOD (SST-SERUM) [facility] Social History: Smoking Status (Most current) and Tobacco Use (All prior to encounter date) This section includes the most current, and the historical, smoking and tobacco- related health factors from the [place] facility where the Encounter took place. Current Smoking Status This section includes the most current smoking, or tobacco-related health factor, from the [place] facility where the Encounter took place. Date/Time Current Smoking Status Comment [facility] Oct 31, 2022 11:30 AM VA-TOBACCO [facility] Tobacco Use History This section includes a history of the smoking, or tobacco-related health factors, that were collected on or before the date of the Encounter. The data comes from the [place] facility where the Encounter took place. Date/Time Smoking Status/Tobac co Use Comment [facility] Oct 31, 2022 11:30 AM VA-TOBACCO QUIT 15 YRS OR MORE [place] [facility] [place] [facility] Sep 17, 2021 03:00 PM VA-TOBACCO FORMER USER [place] [facility] [place] [place] [facility] Sep 17, 2021 03:00 PM VA-TOBACCO QUIT 15 YRS OR MORE [place] [facility] [place] [facility] Aug 15, 2020 10:00 AM VA-TOBACCO FORMER USER [place] [facility] [place] [facility] Aug 15, 2020 10:00 AM VA-TOBACCO QUIT 15 YRS OR MORE [place] [facility] [place] [facility] May 12, 2019 03:07 PM VA-TOBACCO FORMER USER [place] [facility] [place] [facility] May 12, 2019 03:07 PM VA-TOBACCO QUIT 15 YRS OR MORE [place] [facility] [place] [facility] May 31, 2018 01:08 PM VA-TOBACCO FORMER USER [place] [facility] [place] [facility] May 31, 2018 01:08 PM VA-TOBACCO QUIT 15 YRS OR MORE [facility] Feb 16, 2017 01:33 PM QUIT TOBACCO USE > 7 YEARS AGO quit 16 years ago [facility] Nov 13, 2015 03:48 PM QUIT TOBACCO USE > 7 YEARS AGO . [facility] May 12, 2013 12:49 PM QUIT TOBACCO USE > 7 YEARS AGO quit 2001 [facility] Advance Directives: All historical and current Section Date Range: From patient's date of to the date document was created. This section includes ALL of a patient's completed or amended [place] Advance and Rescinded Directives. The entries below indicate that a directive exists for the patient, but an actual copy is not included with this document. The data comes from all [place] facilities. Date Advance Directives Provider Source Nov 03, 2022 ADVANCE DIRECTIVE LENORA CARCAMO [facility] Aug 16, 2020 ADVANCE DIRECTIVE EDMUND MORGAN [facility] Encounter Notes: All associated encounter notes This section contains the clinical notes associated to the Encounter. Date/Time Encounter Note(s) Provider Source October 27, 2023 10:27 AM ADDENDUM: LOCAL TITLE: Addendum STANDARD TITLE: ADDENDUM DATE OF NOTE: OCTOBER 27, 2023@10:27:56 ENTRY DATE: OCTOBER 27, 2023@10:27:57 AUTHOR: JANES DALLAS EXP COSIGNER: URGENCY: STATUS: COMPLETED stated the lidocaines patches are for his knees when he is traveling mostly. Uses one on each knee once a day PRN. Requesting renewal. /elizabeth/ JANES DALLAS RN REGISTERED NURSE Signed: 10/27/2023 10:29 Receipt Acknowledged By: 11/02/2023 13:20 /elizabeth/ PALLAVI BERTRAND NP NURSE PRACTITIONER for KIARA COLENAY === --- Original Document --- 10/23/23 CCC: SCHEDULING ADMINISTRATION: Patient Demographics Patient Name: CHAR TATE Patient Primary Phone: [phone] Patient Primary Address: [place] [address] Patient : 1935 Patient Age: 88 Caller/Recipient Relation to Patient: Self Administrative Administrative Note Reason: Other Administrative Note Comments: PT is requesting Rx Lidocaine patches 5%. Please call PT /es/ BROOKS nova Signed: 10/23/2023 10:05 Receipt Acknowledged By: 10/27/2023 07:57 /elizabeth/ JANES DALLAS RN REGISTERED NURSE 10/28/2023 12:30 /elizabeth/ GATITO HOUSTON LPN 10/26/2023 13:28 /elizabeth/ PALLAVI BERTRAND NP NURSE PRACTITIONER for KIARA ESPARZA 10/26/2023 ADDENDUM STATUS: COMPLETED Vet had Lidocaine patches 5% in 2019 and 2022, please find out site of pain and if pain is new or chronic/has used lidoacaine for this pain in the past. Thanks /elizabeth/ PALLAVI BERTRAND NP NURSE PRACTITIONER Signed: 10/26/2023 13:29 Receipt Acknowledged By: 10/27/2023 10:27 /elizabeth/ JANES DALLAS RN REGISTERED NURSE 10/27/2023 ADDENDUM STATUS: COMPLETED Unable to reach [place], called listed number x3. Left message to call back. /elizabeth/ JANES DALLAS RN REGISTERED NURSE Signed: 10/27/2023 09:11 11/02/2023 ADDENDUM STATUS: UNSIGNED You may not VIEW this UNSIGNED Addendum. JANES DALLAS [facility] [place] [facility] October 26, 2023 01:28 PM ADDENDUM: LOCAL TITLE: Addendum STANDARD TITLE: ADDENDUM DATE OF NOTE: OCTOBER 26, 2023@13:28:34 ENTRY DATE: OCTOBER 26, 2023@13:28:35 AUTHOR: PALLAVI BERTRAND COSIGNER: URGENCY: STATUS: COMPLETED Vet had Lidocaine patches 5% in 2019 and 2022, please find out site of pain and if pain is new or chronic/has used lidoacaine for this pain in the past. Thanks /elizabeth/ PALLAVI BERTRAND NP NURSE PRACTITIONER Signed: 10/26/2023 13:29 Receipt Acknowledged By: 10/27/2023 10:27 /shakir DALLAS RN REGISTERED NURSE === --- Original Document --- 10/23/23 CCC: SCHEDULING ADMINISTRATION: Patient Demographics Patient Name: CHAR TAET Patient Primary Phone: [phone] Patient Primary Address: [address] [place] [id number] Patient : 1935 Patient Age: 88 Caller/Recipient Relation to Patient: Self Administrative Administrative Note Reason: Other Administrative Note Comments: PT is requesting Rx Lidocaine patches 5%. Please call PT /elizabeth/ BROOKS nova Signed: 10/23/2023 10:05 Receipt Acknowledged By: 10/27/2023 07:57 /elizabeth/ JANES DALLAS RN REGISTERED NURSE * AWAITING SIGNATURE * GATITO HOUSTON 10/26/2023 13:28 /shakir BERTRAND NP NURSE PRACTITIONER for KIARA ESPARZA 10/27/2023 ADDENDUM STATUS: COMPLETED Unable to reach , called listed number [phone]. Left message to call back. /shakir DALLAS RN REGISTERED NURSE Signed: 10/27/2023 09:11 10/27/2023 ADDENDUM STATUS: UNSIGNED You may not VIEW this UNSIGNED Addendum. PALLAVI BERTRAND [facility] [place] [facility] October 23, 2023 10:05 AM ADMINISTRATIVE NOTE: LOCAL TITLE: CCC: SCHEDULING ADMINISTRATION STANDARD TITLE: ADMINISTRATIVE NOTE DATE OF NOTE: OCTOBER 23, 2023@10:05:11 ENTRY DATE: OCTOBER 23, 2023@10:05:12 AUTHOR: BROOKS CAMACHO EXP COSIGNER: URGENCY: STATUS: COMPLETED CCC: SCHEDULING ADMINISTRATION Has ADDENDA Patient Demographics Patient Name: CHAR TATE Patient Primary Phone: [phone] Patient Primary Address: [address] [place] [address] Patient : 1935 Patient Age: 88 Caller/Recipient Relation to Patient: Self Administrative Administrative Note Reason: Other Administrative Note Comments: PT is requesting Rx Lidocaine patches 5%. Please call PT /es/ BROOKS CAMACHO amsa Signed: 10/23/2023 10:05 Receipt Acknowledged By: 10/27/2023 07:57 /elizabeth/ JANES DALLAS RN REGISTERED NURSE 10/28/2023 12:30 /elizabeth/ GATITO HOUSTON LPN 10/26/2023 13:28 /elizabeth/ PALLAVI BERTRAND NP NURSE PRACTITIONER for KIARA Chapman ISAIAS 10/26/2023 ADDENDUM STATUS: COMPLETED Vet had Lidocaine patches 5% in 2019 and 2022, please find out site of pain and if pain is new or chronic/has used lidoacaine for this pain in the past. Thanks /elizabeth/ PALLAVI BERTRAND NP NURSE PRACTITIONER Signed: 10/26/2023 13:29 Receipt Acknowledged By: 10/27/2023 10:27 /elizabeth/ JANES DALLAS RN REGISTERED NURSE 10/27/2023 ADDENDUM STATUS: COMPLETED Unable to reach , called listed number x3. Left message to call back. /shakir DALLAS RN REGISTERED NURSE Signed: 10/27/2023 09:11 10/27/2023 ADDENDUM STATUS: COMPLETED stated the lidocaines patches are for his knees when he is traveling mostly. Uses one on each knee once a day PRN. Requesting renewal. /shakir DALLAS RN REGISTERED NURSE Signed: 10/27/2023 10:29 Receipt Acknowledged By: 11/02/2023 13:20 /shakir BERTRAND NP NURSE PRACTITIONER for KIARA Chapman ISAIAS 11/02/2023 ADDENDUM STATUS: COMPLETED Called [place], adv discussed with CPP, given age and cardiac history, better to trail capascin cream. Vet is in agreement. /elizabeth/ PALLAVI BERTRAND NP NURSE PRACTITIONER Signed: 11/02/2023 13:27 BROOKS CAMACHO [facility]
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
--- OUTSIDE RECORDS SUMMARY | 2024-05-16 14:05 | XMS_ITS | Encounter Summary ---
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 Name Role Phone KIARA ESPARZA Primary Care [...] Colbert's Name Patient's Relationship to Policy Colbert [facility] (WNR) MEDICARE ADVANTAGE [facility] (WNR) Jun 01, 2017 [id number] [phone] Krishan TATE PATIENT [facility] (WNR) MEDICARE ADVANTAGE [facility] (WNR) Jun 01, 2017 [id number] Krishan TATE PATIENT [facility] (WNR) MEDICARE ADVANTAGE [facility] (WNR) Jun 01, 2017 [id number] [phone] Krishan TATE PATIENT Selected Encounter This section includes the information on record at [place] for the Encounter. Date/Time Encounter Type Encounter Description Reason Pro vider Source Dec 10, 2023 08:30 AM Outpatient Encounter PM&RS PHYSICIAN IHE Encounter [...] - MEDICINE [facility] [place] [facility] Jan 06, 2024 10:40 AM AMBULATORY - MEDICINE [facility] [place] [facility] Jan 12, 2024 02:30 PM AMBULATORY - MEDICINE [facility] [place] [facility] Jan 25, 2024 10:30 AM AMBULATORY - MEDICINE [facility] [place] [facility] Feb 05, 2024 11:00 AM AMBULATORY - MEDICINE [facility] [place] [facility] Feb 16, 2024 11:30 AM AMBULATORY - MEDICINE [facility] [place] [facility] Mar 22, 2024 10:30 AM AMBULATORY - MEDICINE [facility] [place] [facility] Mar 22, 2024 10:31 AM AMBULATORY - MEDICINE [facility] [place] [facility] Mar 24, 2024 02:30 PM AMBULATORY - MEDICINE [facility] [place] [facility] Mar 29, 2024 10:30 AM AMBULATORY - NONE [facility] [place] [facility] Apr 07, 2024 08:00 AM AMBULATORY - MEDICINE [facility] [place] [facility] Apr 20, 2024 10:40 AM AMBULATORY - MEDICINE [facility] [place] [facility] May 09, 2024 10:30 AM AMBULATORY - MEDICINE [facility] [place] [facility] May 16, 2024 02:15 PM AMBULATORY - MEDICINE [facility] [place] [facility] Jun 03, 2024 03:00 PM AMBULATORY - MEDICINE [facility] Active, Pending, and Scheduled Orders This [...] Order VITAMIN D (25-OH) BLOOD (SST-SERUM) [facility] Social History: Smoking Status (Most current) [...] 31, 2022 11:30 AM [facility]AC[facility] Tobacco Use History This section includes a history of the smoking, or tobacco-related health factors, that were collected on or before the date of the Encounter. The data comes from the [place] facility where the Encounter took place. Date/Time Smoking Status/Tobac co Use Comment Facility Oct 31, 2022 11:30 AM VA-TOBACCO QUIT [address] [facility] [place] [facility] Sep 17, 2021 03:00 PM VA-TOBACCO FORMER USER CT [facility] [place] [facility] Sep 17, 2021 03:00 PM VA-TOBACCO QUIT [address] [facility] [place] [facility] Aug 15, 2020 10:00 AM VA-TOBACCO FORMER USER CT [facility] [place] [facility] Aug 15, 2020 10:00 AM VA-TOBACCO QUIT [address] [facility] [place] [facility] May 12, 2019 03:07 PM VA-TOBACCO FORMER USER CT [facility] [place] [facility] May 12, 2019 03:07 PM VA-TOBACCO QUIT [address] [facility] [place] [facility] May 31, 2018 01:08 PM VA-TOBACCO FORMER USER CT [facility] [place] [facility] May 31, 2018 01:08 PM VA-TOBACCO QUIT [address] [facility] [place] [facility] Feb 16, 2017 01:33 PM QUIT TOBACCO USE > 7 YEARS AGO quit [address] [facility] [place] [facility] Nov 13, 2015 03:48 PM QUIT TOBACCO USE > 7 [address] [facility] [place] [facility] May 12, 2013 12:49 PM QUIT TOBACCO USE > 7 YEARS AGO quit [facility] Advance Directives: All historical and current Section [...] ADVANCE DIRECTIVE LENORA CARCAMO [facility] Aug 16, [address] [facility] Encounter Notes: All associated encounter notes This section contains the clinical notes associated to the Encounter. Date/Time Encounter Note(s) Provider Source Dec 10, 2023 08:30 AM ADMINISTRATIVE NOT E: LOCAL TITLE: ADMINISTRATIVE NOTE STANDARD TITLE: ADMINISTRATIVE NOTE DATE OF NOTE: DEC 10, 2023@08:30 ENTRY DATE: DEC 10, 2023@08:30:14 AUTHOR: ANA MARIA ESPINO EXP COSIGNER: URGENCY: STATUS: COMPLETED RTC 11/07/2023 dispositioned cx by pt. No longer necessary. 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
--- OUTSIDE RECORDS SUMMARY | 2024-05-16 14:05 | XMS_ITS | Encounter Summary ---
Author Name Department of Vetera ns Affairs (MD) Organization Department of Vetera Affairs (MD) Address [address] [place] [address] Care Team Providers Care Pt Sitter Name Role Phone KIARA ESPARZA Primary Care [...] Colbert's Name Patient's Relationship to Policy Colbert [facility] (WNR) MEDICARE ADVANTAGE [facility] (WNR) Jun 01, 2017 [id number] [phone] Krishan TATE PATIENT [facility] (WNR) MEDICARE ADVANTAGE [facility] (WNR) Jun 01, 2017 [id number] [phone] Krishan TATE PATIENT [facility] (WNR) MEDICARE ADVANTAGE [facility] (WNR) Jun 01, 2017 [id number] Krishan TATE PATIENT Selected Encounter This section includes the information on record at MD for the Encounter. Date/Time Encounter Type Encounter Description Reason Provider Source Sep 29, 2023 08:57 AM Outpatient Encounter PRIMARY CARE/MEDICINE JANES DALLAS Avis Encounter Template Text not used by MD Plan of Treatment: Future Appointments (+ 6 months) and Future Tests (+/- 45 days) The Plan of Treatment section includes future care activities for the patient from all MD treatmentfacilities. This section includes future appointments and future orders which are active, pending or scheduled. Future Appointments This section includes appointments that were scheduled to occur 6 months from the date of the Encounter, up to a maximum of 20 appointments. The data comes from all MD treatment facilities. Appointment Date/Time Appointment Type Appointme nt Facility Name Nov 02, 2023 11:30 AM AMBULATORY - MEDICINE [facility] [facility] Dec 22, 2023 11:10 AM AMBULATORY - MEDICINE [facility] [place] [facility] Jan 06, 2024 10:40 AM AMBULATORY - MEDICINE [facility] [place] [facility] Jan 12, 2024 02:30 PM AMBULATORY - MEDICINE [facility] [place] [facility] Jan 25, 2024 10:30 AM AMBULATORY - MEDICINE [facility] [place] [facility] Feb 05, 2024 11:00 AM AMBULATORY - MEDICINE [facility] [place] [facility] Feb 16, 2024 11:30 AM AMBULATORY - MEDICINE [facility] [place] [facility] Mar 22, 2024 10:30 AM AMBULATORY - MEDICINE [facility] [place] [facility] Mar 22, 2024 10:31 AM AMBULATORY - MEDICINE [facility] [place] [facility] Mar 24, 2024 02:30 PM AMBULATORY - MEDICINE [facility] [place] [facility] Mar 29, 2024 10:30 AM AMBULATORY - NONE [facility] [facility] Active, Pending, and Scheduled Orders This section includes a listing of several types of active, pending, and scheduled orders, including clinic medications orders, diagnostic test orders, procedure orders and consult orders; where the start date of the order is 45 days before the date of the Encounter or 45 days after the date of theEncounter. The data comes from all MD treatment facilities. Test Date/Time Test Type Test Details Facility Name October 28, 2023 12:00 AM Laboratory - Chemi roxi Order VITAMIN D (25-OH) BLOOD (SST-SERUM) [facility] Lab Results: +/- 30 days of the encounter This section includes the Chemistry and Hematology Lab Results on record with MD for the patient. Radiology Reports and Pathology Reports are provided separately, in subsequent sections. Lab Results This section contains the Chemistry/Hematology Results that were resulted 30 days before or 30 daysafter the date of the Encounter. Date/Time Source Result Type Result - Unit Interpretation Reference Range Comment Sep 21, 2023 08:48 AM [facility] HEMOGLOBIN A1C PANEL Specimen Type: BLOOD [...] Jun 02, 2023 02:59 PM Reporting Lab: [address] [address] Performing Lab: [address] [address] HEMOGLOBIN A1C 5.5 4.0-5.6 Sep 21, 2023 08:48 AM [facility] BASIC METABOLIC PANEL (fasting) Specimen Type: SERUM No comment entered. Ordering Provider: SOLOMON ESPARZA F Report Released Date/Time: Jun 02, 2023 02:59 PM Reporting Lab: [address] [address] Performing Lab: [address] [address] UREA NITROGEN 14 mg/dL 7-25 GLUCOSE 105 mg/dL H 65-100 SODIUM 139 mmol/L 135-145 POTASSIUM 4.6 mmol/L 3.5-5.0 CHLORIDE 105 mmol/L 100-110 CO2 26 meq/L 20-30 CREATININE, Serum 0.91 mg/dL 0.50-1.40 eGFR(CKD-EPI 2020) 82 mL/min >60 Sep 21, 2023 08:48 AM [facility] LIPID PANEL FASTING Specimen Type: SERUM No comment entered. Ordering Provider: SOLOMON ESPARZA F Report Released Date/Time: Jun 02, 2023 02:59 PM Reporting Lab: [facility] [address] [facility] [address] Performing Lab: [address] [address] CHOLESTEROL 109 mg/dL TRIGLYCERIDE 202 mg/dL H 0-150 LDL calculated 36 mg/dL 0-129 CHOL/HDL 3.3 HDL CHOLESTEROL 33 mg/dL L 40-60 Sep 21, 2023 08:48 AM [facility] LIVER FUNCTION Specimen Type: SERUM No comment entered. Ordering Provider: SOLOMON ESPARZA F Report Released Date/Time: Jun 02, 2023 02:59 PM Reporting Lab: [facility] [address] [facility] [address] Performing Lab: [address] [address] PROTEIN,TOTAL 6.7 g/dL 6.0-8.3 ALBUMIN 4.1 g/dL 3.5-5.0 ALKALINE PHOSPHATASE 47 U/L 40-150 AST 16 U/L 5-34 ALT 20 U/L BILIRUBIN, TOTAL 0.5 mg/dL 0.2-1.2 Social History: Smoking Status (Most current) and Tobacco Use (All prior to encounter date) This section includes the most current, and the historical, smoking and tobacco- related health factors from the MD facility where the Encounter took place. Current Smoking Status This section includes the most current smoking, or tobacco-related health factor, from the MD facility where the Encounter took place. Date/Time Current Smoking Status Comment Facil nilda Oct 31, 2022 11:30 AM VA-TOBACCO QUIT 15 YRS OR MORE [facility] Tobacco Use History This section includes a history of the smoking, or tobacco-related health factors, that were collected on or before the date of the Encounter. The data comes from the MD facility where the Encounter took place. Date/Time Smoking Status/Tobac co Use Comment Facility Oct 31, 2022 11:30 AM VA-TOBACCO QUIT 15 YRS OR MORE [place] [facility] [place] [facility] Sep 17, 2021 03:00 PM VA-TOBACCO FORMER USER MD [facility] [place] [facility] Sep 17, 2021 03:00 PM VA-TOBACCO QUIT 15 YRS OR MORE [place] [facility] [place] [facility] Aug 15, 2020 10:00 AM VA-TOBACCO FORMER USER MD [facility] [place] [facility] Aug 15, 2020 10:00 AM VA-TOBACCO QUIT 15 YRS OR MORE [place] [facility] [place] [facility] May 12, 2019 03:07 PM VA-TOBACCO FORMER USER MD [facility] [place] [facility] May 12, 2019 03:07 PM VA-TOBACCO QUIT 15 YRS OR MORE [place] [facility] [place] [facility] May 31, 2018 01:08 PM VA-TOBACCO FORMER USER MD [facility] [place] [facility] May 31, 2018 01:08 PM VA-TOBACCO QUIT 15 YRS OR MORE [place] [facility] [place] [facility] Feb 16, 2017 01:33 PM QUIT TOBACCO USE > 7 YEARS AGO quit 16 years ago MD [facility] [place] [facility] Nov 13, 2015 03:48 PM QUIT TOBACCO USE > 7 YEARS AGO . [place] [facility] [place] [facility] May 12, 2013 12:49 PM QUIT TOBACCO USE > 7 YEARS AGO quit 2001 [facility] Advance Directives: All historical and current Section Date Range: From patient's date of to the date document was created. This section includes ALL of a patient's completed or amended MD Advance and Rescinded Directives. The entries below indicate that a directive exists for the patient, but an actual copy is not included with this document. The data comes from all [facility]. Date Advance Directives Provider Source Nov 03, 2022 ADVANCE DIRECTIVE LENORA CARCAMO [facility] Aug 16, 2020 ADVANCE DIRECTIVE [facility]D [facility] Encounter Notes: All associated encounter notes This section contains the clinical notes associated to the Encounter. Date/Time Encounter Note(s) Provider Source Sep 29, 2023 08:57 AM PRIMARY CARE [facility] E MESSAGING: LOCAL TITLE: PRIMARY CARE SECURE MESSAGING STANDARD TITLE: PRIMARY CARE SECURE MESSAGING DATE OF NOTE: SEP 29, 2023@08:57 ENTRY DATE: SEP 29, 2023@09:57:31 AUTHOR: JANES DALLAS EXP COSIGNER: URGENCY: STATUS: COMPLETED ------Original Message --------- Sent: 09/28/2023 05:22 PM ET From: CHAR TATE To: Promise ESPARZA_PRIMARY CARE_[facility] Subject: General:NO NEED TO MAIL HANDICAP FORM When we came back home right after seeing you today, it was in the mail. We are all set thank you. /elizabeth/ JANES DALLAS, RN REGISTERED NURSE Signed: 09/29/2023 09:57 JANES DALLAS [facility]
--- OUTSIDE RECORDS SUMMARY | 2024-05-16 14:05 | XMS_ITS ---
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 Role Phone KIARA ESPARZA Primary Care [...] Patient's Relationship to Policy Colbert KYLIE [facility] (WNR) MEDICARE ADVANTAGE [facility] (WNR) Jun 01, 2017 [id number] Krishan TATE PATIENT [facility] (WNR) MEDICARE ADVANTAGE [facility] (WNR) Jun 01, 2017 [id number] Krishan TATE PATIENT [facility] (WNR) MEDICARE ADVANTAGE [facility] (WNR) Jun 01, 2017 [id number] Krishan TATE PATIENT Selected Encounter This section includes the information on record at OR for the Encounter. Date/Time Encounter Type Encounter Description Reason Pro vider Source Aug 04, 2023 12:00 PM Outpatient Encounter COMMUNITY CARE CONSULT IHE Encounter Template Text not used by OR Plan of Treatment: Future Appointments (+ 6 months) and Future Tests (+/- 45 days) The Plan of Treatment section includes future care activities for the patient from all OR treatmentfacilities. This section includes future appointments and future orders which are active, pending or scheduled. Future Appointments This section includes appointments that were scheduled to occur 6 months from the date of the Encounter, up to a maximum of 20 appointments. The data comes from all OR treatment facilities. Appointment Date/Time Appointment Type Appointme nt Facility Name Aug 07, 2023 09:30 AM AMBULATORY - MEDICINE [place] [facility] [place] [facility] Aug 17, 2023 11:30 AM AMBULATORY - MEDICINE [place] [facility] [place] [facility] Aug 26, 2023 01:00 PM AMBULATORY - MEDICINE [place] [facility] [place] [facility] Sep 28, 2023 10:30 AM AMBULATORY - MEDICINE [place] [facility] [place] [facility] Nov 02, 2023 11:30 AM AMBULATORY - MEDICINE [place] [facility] [place] [facility] Dec 22, 2023 11:10 AM AMBULATORY - MEDICINE [place] [facility] [place] [facility] Jan 06, 2024 10:40 AM AMBULATORY - MEDICINE [place] [facility] [place] [facility] Jan 12, 2024 02:30 PM AMBULATORY - MEDICINE [place] [facility] [place] [facility] Jan 25, 2024 10:30 AM AMBULATORY - MEDICINE [place] [facility] [place] [facility] Lab Results: +/- 30 days of the encounter This section includes the Chemistry and Hematology Lab Results on record with OR for the patient. Radiology Reports and Pathology Reports are provided separately, in subsequent sections. Lab Results This section contains the Chemistry/Hematology Results that were resulted 30 days before or 30 daysafter the date of the Encounter. Date/Time Source Result Type Result - Unit Interpretation Reference Range Comment Aug 07, 2023 08:13 AM [place] [facility] [place] [facility] VITAMIN D (25-OH) Specimen Type: SERUM No comment entered. Ordering Provider: BRITTNEY ESPARZA Report Released Date/Time: Jul 30, 2023 03:58 PM Reporting Lab: [address] [address] Performing Lab: [address] [address] VITAMIN D (25-OH) 44 ng/mL 20-50 Aug 07, 2023 08:12 AM [facility] LIVER FUNCTION Specimen Type: SERUM No comment entered. Ordering Provider: BRITTNEY ESPARZA Report Released Date/Time: Jun 04, 2023 12:30 PM Reporting Lab: [address] [address] Performing Lab: [address] [address] PROTEIN,TOTAL 6.5 g/dL 6.0-8.3 ALBUMIN 4.0 g/dL 3.5-5.0 ALKALINE PHOSPHATASE 49 U/L 40-150 AST 16 U/L 5-34 ALT 20 U/L BILIRUBIN, TOTAL 0.4 mg/dL 0.2-1.2 Aug 07, 2023 08:12 AM [facility] LIPID PANEL FASTING Specimen Type: SERUM No comment entered. Ordering Provider: BRITTNEY ESPARZA Report Released Date/Time: Jun 04, 2023 12:30 PM Reporting Lab: [address] [address] Performing Lab: [address] [address] CHOLESTEROL 120 mg/dL TRIGLYCERIDE 189 mg/dL H 0-150 LDL calculated 45 mg/dL 0-129 CHOL/HDL 3.2 HDL CHOLESTEROL 37 mg/dL L 40-60 Aug 07, 2023 08:12 AM [facility] BASIC METABOLIC PANEL (fasting) Specimen Type: SERUM No comment entered. Ordering Provider: BRITTNEY ESPARZA Report Released Date/Time: Jun 04, 2023 12:30 PM Reporting Lab: [address] [place] [address] Performing Lab: [facility] [address] [facility] [address] UREA NITROGEN 15 mg/dL 7-25 GLUCOSE 106 mg/dL H 65-100 SODIUM 140 mmol/L 135-145 POTASSIUM 4.5 mmol/L 3.5-5.0 CHLORIDE 107 mmol/L 100-110 CO2 26 meq/L 20-30 CREATININE, Serum 0.82 mg/dL 0.50-1.40 eGFR(CKD-EPI 2020) 85 mL/min >60 Aug 07, 2023 08:12 AM [facility] VITAMIN B-1 (THIAMINE)-(QU) Specimen Type: PLASMA Comment: Vitamin supplementation within 24 hours prior to blood draw may affect the accuracy of the results. This test was developed and its analytical performance characteristics have been determined by [employer] [place], [place]. It has not been cleared or approved by the U.S. Food and Drug Administration. This assay has been validated pursuant to the CLIA regulations and is used for clinical purposes. Test Performed by [facility], [facility] [place] [place], [address] [place] [address] Dami Potts M.D., Ph.D., Director of Laboratories , CLIA [id number] TEST PERFORMED AT: , Ordering Provider: BRITTNEY ESPARZA Report Released Date/Time: Jul 30, 2023 03:58 PM Reporting Lab: [address] [address] Performing Lab: [facility] [address] [address] VITAMIN B-1 (THIAMINE)-(Q U) 29 nmol/L 8-30 Aug 07, 2023 08:12 AM [facility] FOLATE Specimen Type: SERUM No comment entered. Ordering Provider: BRITTNEY ESPARZA Report Released Date/Time: Jul 30, 2023 03:58 PM Reporting Lab: [address] [address] Performing Lab: [facility] [place] [facility] [address] [facility] [address] FOLATE 14.70 ng/mL >5.2 Aug 07, 2023 08:12 AM [facility] TSH Specimen Type: SERUM No comment entered. Ordering Provider: BRITTNEY ESPARZA Report Released Date/Time: Jul 30, 2023 03:58 PM Reporting Lab: [facility] [place] [address] [address] Performing Lab: [facility] [address] [address] TSH 2.25 u[IU]/mL 0.35-5.00 Aug 07, 2023 08:12 AM [facility] VITAMIN B12 Specimen Type: SERUM No comment entered. Ordering Provider: BRITTNEY ESPARZA Report Released Date/Time: Jul 30, 2023 03:58 PM Reporting Lab: [facility] [address] [address] Performing Lab: [facility] [address] [address] VITAMIN B12 552 pg/mL 200-900 Aug 07, 2023 08:12 AM [facility] IRON & TIBC PANEL Specimen Type: SERUM No comment entered. Ordering Provider: BRITTNEY ESPARZA Report Released Date/Time: Jul 30, 2023 03:58 PM Reporting Lab: [facility] [address] [address] Performing Lab: [facility] [address] [address] TIBC 408 ug/dL 204-475 IRON 59 ug/dL 40-160 Transferrin Saturation 14.5 L 20.0-50.0 Aug 07, 2023 08:12 AM [facility] CBC AND DIFF (AUTO) Specimen Type: BLOOD No comment entered. Ordering Provider: BRITTNEY ESPARZA Report Released Date/Time: Jul 30, 2023 03:58 PM Reporting Lab: [facility] [address] [facility] [address] Performing Lab: [facility] [address] [facility] [address] WBC 5.36 10*3/uL 4.50-11.00 RBC 4.97 10*6/uL 4.23-5.66 HGB 14.7 g/dL 12.8-17 HCT 44.9 39.2-50.4 MCV 90.3 fL 82-99 MCHC 32.7 g/dL 30.8-35.1 PLT 273 10*3/uL 140-360 RDW-CV 13.0 12.0-16.0 Hayes, Abs 0.59 10*3/uL 0.30-1.10 MCH 29.6 pg 26.2-32.6 Neut % 70.0 43.7-75.8 Lymph % 14.9 14.0-42.3 Hayes % 11.0 5.1-13.7 Eos % 3.2 0.4-6.8 [...] and tobacco- related health factors from the OR facility where the Encounter took place. Current Smoking Status This section includes the most current smoking, or tobacco-related health factor, from the OR facility where the Encounter took place. Date/Time Current Smoking Status Comment Facil ity Oct 31, 2022 11:30 AM VA-TOBACCO FORMER USER [facility] Tobacco Use History This section includes a history of the smoking, or tobacco-related health factors, that were collected on or before the date of the Encounter. The data comes from the OR facility where the Encounter took place. Date/Time Smoking Status/Tobac co Use Comment Facility Oct 31, 2022 11:30 AM VA-TOBACCO QUIT 15 YRS OR MORE [place] [facility] [place] [facility] Sep 17, 2021 03:00 PM VA-TOBACCO FORMER USER [place] [facility] [place] [facility] Sep 17, 2021 03:00 PM VA-TOBACCO QUIT 15 YRS OR MORE [place] [facility] [place] [facility] Aug 15, 2020 10:00 AM VA-TOBACCO FORMER USER [place] [facility] [place] [facility] Aug 15, 2020 10:00 AM VA-TOBACCO QUIT 15 YRS OR MORE [place] [facility] [place] [facility] May 12, 2019 03:07 PM VA-TOBACCO FORMER USER [place] [facility] [place] [facility] May 12, 2019 03:07 PM VA-TOBACCO QUIT 15 YRS OR MORE [place] [facility] [place] [facility] May 31, 2018 01:08 PM VA-TOBACCO FORMER USER [place] [facility] [place] [facility] May 31, 2018 01:08 PM VA-TOBACCO QUIT 15 YRS OR MORE [place] [facility] [place] [facility] Feb 16, 2017 01:33 PM QUIT TOBACCO USE > 7 YEARS AGO quit 16 years ago [place] [facility] [place] [facility] Nov 13, 2015 03:48 PM QUIT TOBACCO USE > 7 YEARS AGO . [place] [facility] [place] [facility] May 12, 2013 12:49 PM QUIT TOBACCO USE > 7 YEARS AGO quit 2001 [place] [facility] [place] [facility] Advance Directives: All historical and current Section Date Range: From patient's date of to the date document was created. This section includes ALL of a patient's completed or amended [place] Advance and Rescinded Directives. The entries below indicate that a directive exists for the patient, but an actual copy is not included with this document. The data comes from all [place] facilities. Date Advance Directives Provider Source Nov 03, 2022 ADVANCE DIRECTIVE LENORA CARCAMO [facility] [place] [facility] Aug 16, 2020 ADVANCE DIRECTIVE EDMUND MORGAN [place] [facility] [place] [facility] Encounter Notes: All associated encounter notes This section contains the clinical notes associated to the Encounter. Date/Time Encounter Note(s) Provider Source Aug 04, 2023 12:00 PM NONVA CONSULT: LOCAL TITLE: COMMUNITY CARE-CONSULT RESULT NOTE STANDARD TITLE: NONVA CONSULT DATE OF NOTE: AUG 04, 2023@12:00 ENTRY DATE: SEPTEMBER 30, 2023@06:53:37 AUTHOR: LEELEE YOUSIF EXP COSIGNER: URGENCY: STATUS: COMPLETED VistA Imaging - Scanned Document SCANNED DOCUMENT SIGNATURE NOT REQUIRED Electronically Filed: 09/30/2023 by: LEELEE STILES [facility]
--- OUTSIDE RECORDS SUMMARY | 2024-05-16 14:05 | XMS_ITS | Encounter Summary ---
Author Name [facility] [facility] Address [address] [place] [address] Care Team Providers Care Primary Care Coordinator Name Role Phone KIARA ESPARZA Primary Care [...] Colbert's Name Patient's Relationship to Policy Colbert [facility] (WNR) MEDICARE ADVANTAGE [facility] (WNR) Jun 01, 2017 [id number] [phone] Krishan TATE PATIENT [facility] (WNR) MEDICARE ADVANTAGE [facility] (WNR) Jun 01, 2017 [id number] Krishan TATE PATIENT [facility] (WNR) MEDICARE ADVANTAGE [facility] (WNR) Jun 01, 2017 [id number] [phone] Krishan TATE PATIENT Selected Encounter This section includes the information on record at [place] for the Encounter. Date/Time Encounter Type Encounter Description Reason Provider Source Nov 02, 2023 11:30 AM TRIM NAIL(S) PODIATRY ICD-10-CM L60.3 Nail dystrophy DONAVAN FLORES Avis Encounter Template Text not used by [place] Assessments - Encounter Diagnoses This section includes the primary and secondary diagnoses documented for the Encounter. Date/Time Primary/Secondary Diagnosis Diagnosis Name Provider Source Nov 02, 2023 12:45 PM PRIMARY Nail dystrophy DONAVAN FLORES [place] [facility] [place] [facility] Plan of Treatment: Future Appointments (+ 6 months) and Future Tests (+/- 45 days) The Plan of Treatment section includes future care activities for the patient from all [place] treatmentfacilities. This section includes future appointments and future orders which are active, pending or scheduled. Future Appointments This section includes appointments that were scheduled to occur 6 months from the date of the Encounter, up to a maximum of 20 appointments. The data comes from all [place] treatment facilities. Appointment Date/Time Appointment Type Appointme nt Facility Name Dec 22, 2023 11:10 AM [facility]UL[facility]ICINE [facility] [place] [facility] Jan 06, 2024 10:40 AM [facility] [place] [facility] Jan 12, 2024 02:30 PM [facility] MEDICINE [facility] [place] [facility] Jan 25, 2024 10:30 AM [facility]ORY [facility] MEDICINE [facility] [place] [facility] Feb 05, 2024 11:00 AM AM[facility]ULATORY [facility] MEDICINE [facility] [place] [facility] Feb 16, 2024 11:30 AM [facility]ICINE [facility] [place] [facility] Mar 22, 2024 10:30 AM AM[facility]ICINE [facility] [place] [facility] Mar 22, 2024 10:31 AM AM[facility]UL[facility]ORY [facility] MEDICINE [facility] [place] [facility] Mar 24, 2024 02:30 PM [facility]ORY [facility]ICINE [facility] [place] [facility] Mar 29, 2024 10:30 AM AMBUL[place]ORY - NONE [place] [facility] [place] [facility] Apr 07, 2024 08:00 AM [facility]ICINE [facility] [place] [facility] Apr 20, 2024 10:40 AM [facility] [place] [facility] Active, Pending, and Scheduled Orders This section includes a listing of several types of active, pending, and scheduled orders, including clinic medications orders, diagnostic test orders, procedure orders and consult orders; where the start date of the order is 45 days before the date of the Encounter or 45 days after the date of theEncounter. The data comes from all [place] treatment facilities. Test Date/Time Test Type Test Details Facility Name October 28, 2023 12:00 AM Laboratory - Chemi stry Order VITAMIN D (25-OH) BLOOD (SST-SERUM) [facility] Social History: Smoking Status (Most current) and Tobacco Use (All prior to encounter date) This section includes the most current, and the historical, smoking and tobacco- related health factors from the [place] facility where the Encounter took place. Current Smoking Status This section includes the most current smoking, or tobacco-related health factor, from the [place] facility where the Encounter took place. Date/Time Current Smoking Status Comment [facility] it Oct 31, 2022 11:30 AM VA-TOBACCO FOR[facility]ER [facility] Tobacco Use History This section includes a history of the smoking, or tobacco-related health factors, that were collected on or before the date of the Encounter. The data comes from the [place] facility where the Encounter took place. Date/Time Smoking Status/Tobac co Use Comment Facility Oct 31, 2022 11:30 AM VA-TOBACCO QUIT 15 YRS OR MORE [place] [facility] [place] [facility] Sep 17, 2021 03:00 PM VA-TOBACCO FORMER USER [place] [facility] [place] [facility] Sep 17, 2021 03:00 PM VA-TOBACCO QUIT 15 YRS OR MORE [place] [facility] [place] [facility] Aug 15, 2020 10:00 AM VA-TOBACCO FORMER USER [place] [facility] [place] [facility] Aug 15, 2020 10:00 AM VA-TOBACCO QUIT 15 YRS OR MORE [place] [facility] [place] [facility] May 12, 2019 03:07 PM VA-TOBACCO FORMER USER [place] [facility] [place] [facility] May 12, 2019 03:07 PM VA-TOBACCO QUIT 15 YRS OR MORE [facility] May 31, 2018 01:08 PM VA-TOBACCO [facility]ER [facility] May 31, 2018 01:08 PM VA-TOBACCO QUIT 15 YRS OR MORE [facility] Feb 16, 2017 01:33 PM QUIT TOBACCO USE > 7 YEARS AGO quit 16 years ago [facility] Nov 13, 2015 03:48 PM QUIT TOBACCO USE > 7 YEARS AGO . [facility] May 12, 2013 12:49 PM QUIT TOBACCO USE > 7 YEARS AGO quit 2001 [facility] Advance Directives: All historical and current Section Date Range: From patient's date of to the date document was created. This section includes ALL of a patient's completed or amended [place] Advance and Rescinded Directives. The entries below indicate that a directive exists for the patient, but an actual copy is not included with this document. The data comes from all [place] facilities. Date Advance Directives Provider Source Nov 03, 2022 ADVANCE DIRECTIVE CARLOS AL[facility]ORA [facility] Aug 16, 2020 ADVANCE DIRECTIVE EDMUND MORGAN [facility] Encounter Notes: All associated encounter notes This section contains the clinical notes associated to the Encounter. Date/Time Encounter Note(s) Provider Source Nov 02, 2023 12:58 PM PREVENTIVE MEDICIN E NURSING NOTE: LOCAL TITLE: CLINICAL REMINDERS/NURSING STANDARD TITLE: PREVENTIVE MEDICINE NURSING NOTE DATE OF NOTE: NOV 02, 2023@12:58 ENTRY DATE: NOV 02, 2023@12:58:26 AUTHOR: DONAVAN FLORES EXP COSIGNER: URGENCY: STATUS: COMPLETED Suicide Screen: C-SSRS Screening [place] Suicide Severity Rating Scale (C-SSRS) screener 1. Over the past month, have you wished you were or wished you could go to sleep and not wake up? No 2. Over the past month, have you had any actual thoughts of killing yourself? No 3. Over the past month, have you been thinking about how you might do this? Response not required due to responses to other questions. 4. Over the past month, have you had these thoughts and had some intention of acting on them? Response not required due to responses to other questions. 5. Over the past month, have you started to work out or worked out the details of how to kill yourself? Response not required due to responses to other questions. 6. If yes, at any time in the past month did you intend to carry out this plan? Response not required due to responses to other questions. 7. In your lifetime, have you ever done anything, started to do anything, or prepared to do anything to end your life (for example, collected pills, obtained a gun, gave away valuables, went to the roof but didn't jump)? No 8. If YES, was this within the past 3 months? Response not required due to responses to other questions. /elizabeth/ DONAVAN FLORES LPN LICENSED PRACTICAL NURSE Signed: 11/02/2023 12:59 DONAVAN FLORES [place] [facility] [place] [facility] Nov 02, 2023 12:01 PM NURSING OUTPATIENT NOTE: LOCAL TITLE: NURSING/SPECIALTY CLINIC NOTE STANDARD TITLE: NURSING OUTPATIENT NOTE DATE OF NOTE: NOV 02, 2023@12:01 ENTRY DATE: NOV 02, 2023@12:01:25 AUTHOR: DONAVAN FLORES EXP COSIGNER: URGENCY: STATUS: COMPLETED seen [facility] for continued foot care. [place] has a history of Thick nails and is unable to trim his/her own nails. Ambulates: [X]self [ ]wheelchair can transfer [ ]wheelchair cannot transfer [ x]without assistance [ ]with assistance of Bilateral: Pedal pulses: Right Foot: Dorsalis Pedis - palpable [ x] non-palpable[ ] Posterior Tibial - palpable[ x] non-palpable[ ] Left Foot: Dorsalis Pedis - [...] Clean [ ] Soiled [ ] Macerated [ x] Dry Nails: [ x] Thickened [x ] Elongated [x ] Dystrophic [ ] Discolored [ ] Fungal [ ] Incurvated [ ] Subungual debri Hyperkeratosis [ ] Yes, Locations: [x ] No Open lesions/wounds: [ ] Yes, Locations: [x ] No Amputations: [ ] Yes, Locations: [ x] No Edema present: ( x ) Yes ( ) NO Podiatric Problem List: [ ] Diabetes mellitus [ ] Peripheral vascular disease [ ] Neuropathy [ ] Onychomycosis [x ] Dystrophic toenails [ ] Hyperkeratosis/calluses [x ] Xerosis/dry skin [ ] Other: Treatment: [x ] Nails x 10 debrided in length and thickness without incident [ ] Hyperkeratotic lesions were grinded down with eletric thread grinder tool and debrided without incidence. [x ]Patient education educated about proper foot and encouraged to check feet daily for injuries and wounds [ ] Instructed to moisturize feet daily but not in-between toes x Patient is to RTC in 2 months. /elizabeth/ DONAVAN FLORES LPN LICENSED PRACTICAL NURSE Signed: 11/02/2023 12:45 Receipt Acknowledged By: 11/03/2023 15:20 /elizabeth/ KAREN HOUSE DPM PODIATRY ATTENDING DONAVAN FLORES [facility]
--- OUTSIDE RECORDS SUMMARY | 2024-05-16 14:05 | XMS_ITS ---
Author Name [facility] [place] [facility] [place] Address [address] [place] [address] Care Team Providers Care Cut To Length Operator Name Role Phone LUIS F CASH Primary [...] Colbert's Name Patient's Relationship to Policy Colbert BS [facility] (WNR) MEDICARE ADVANTAGE [facility] (WNR) Jun 01, 2017 [id number] Krishan TATE PATIENT [facility] (WNR) MEDICARE ADVANTAGE [facility] (WNR) Jun 01, 2017 [id number] Krishan TATE PATIENT [facility] (WNR) MEDICARE ADVANTAGE [facility] (WNR) Jun 01, 2017 [id number] Krishan TATE PATIENT Selected Encounter This section includes the information on record at [place] for the Encounter. Date/Time Encounter Type Encounter Description Reason Provider Source Aug 17, 2023 11:30 AM MTMS BY DEVYN LOVING 15 MIN TELEPHONE PRIMARY CARE ICD-10-CM E78.2 Mixed hyperlipidemia ALFA YOO E Encounter Template Text not used by [place] Assessments - Encounter Diagnoses This section includes the primary and secondary diagnoses documented for the Encounter. Date/Time Primary/Secondary Diagnosis Diagnosis Name Provider Source Aug 17, 2023 11:30 AM PRIMARY Mixed hyperlipidemia ALFA YOO [place] [facility] [place] [facility] Plan of Treatment: Future Appointments (+ 6 months) and Future Tests (+/- 45 days) The Plan of Treatment section includes future care activities for the patient [facility] [place] [facility] This section includes future appointments and future orders which are active, pending or scheduled. Future Appointments This section includes appointments that were scheduled to occur 6 months from the date of the Encounter, up to a maximum of 20 appointments. The data comes from all [place] treatment facilities. Appointment Date/Time Appointment Type Appointme nt Facility Name Aug 26, 2023 01:00 PM [place]UL[place]ORY [place]ICINE [place] [facility] [place] [facility] Sep 28, 2023 10:30 AM [place] [facility] [place] [facility] Nov 02, 2023 11:30 AM [place] [facility] [place] [facility] Dec 22, 2023 11:10 AM [place] [facility] [place] [facility] Jan 06, 2024 10:40 AM [place] [facility] [place] [facility] Jan 12, 2024 02:30 PM [place] [facility] [place] [facility] Jan 25, 2024 10:30 AM [place] [facility] [place] [facility] Feb 05, 2024 11:00 AM [place] [facility] [place] [facility] Feb 16, 2024 11:30 AM [place] [facility] [place] [facility] Lab Results: +/- 30 days of the encounter This section includes the Chemistry and Hematology Lab Results on record with [place] for the patient. Radiology Reports and Pathology Reports are provided separately, in subsequent sections. Lab Results This section contains the Chemistry/Hematology Results that were resulted 30 days before or 30 daysafter the date of the Encounter. Date/Time Source Result Type Result - Unit Interpretation Reference Range Comment Aug 07, 2023 08:13 AM [facility] VITAMIN D (25-OH) Specimen Type: SERUM No comment entered. Ordering Provider: BRITTNEY CASH Report Released Date/Time: Jul 30, 2023 03:58 PM Reporting Lab: [address] [address] Performing Lab: [address] [address] VITAMIN D (25-OH) 44 ng/mL 20-50 Aug 07, 2023 08:12 AM [facility] LIPID PANEL FASTING Specimen Type: SERUM No comment entered. Ordering Provider: BRITTNEY CASH Report Released Date/Time: Jun 04, 2023 12:30 PM Reporting Lab: [address] [address] Performing Lab: [address] [address] CHOLESTEROL 120 mg/dL TRIGLYCERIDE 189 mg/dL H 0-150 LDL calculated 45 mg/dL 0-129 CHOL/HDL 3.2 HDL CHOLESTEROL 37 mg/dL L 40-60 Aug 07, 2023 08:12 AM [facility] LIVER FUNCTION Specimen Type: SERUM No comment entered. Ordering Provider: BRITTNEY CASH Report Released Date/Time: Jun 04, 2023 12:30 PM Reporting Lab: [facility] [address] [facility] [address] Performing Lab: [address] [address] PROTEIN,TOTAL 6.5 g/dL 6.0-8.3 ALBUMIN 4.0 g/dL 3.5-5.0 ALKALINE PHOSPHATASE 49 U/L 40-150 AST 16 U/L 5-34 ALT 20 U/L BILIRUBIN, TOTAL 0.4 mg/dL 0.2-1.2 Aug 07, 2023 08:12 AM [facility] BASIC METABOLIC PANEL (fasting) Specimen Type: SERUM No comment entered. Ordering Provider: BRITTNEY CASH Report Released Date/Time: Jun 04, 2023 12:30 PM Reporting Lab: [facility] [address] [facility] [address] Performing Lab: [facility] [address] [facility] [address] UREA NITROGEN 15 mg/dL 7-25 GLUCOSE 106 mg/dL H 65-100 SODIUM 140 mmol/L 135-145 POTASSIUM 4.5 mmol/L 3.5-5.0 CHLORIDE 107 mmol/L 100-110 CO2 26 meq/L 20-30 CREATININE, Serum 0.82 mg/dL 0.50-1.40 eGFR(CKD-EPI 2020) 85 mL/min >60 Aug 07, 2023 08:12 AM [facility] VITAMIN B-1 (THIAMINE)-(QU) Specimen Type: PLASMA Comment: Vitamin supplementation within 24 hours prior to blood draw may affect the accuracy of the results. This test was developed and its analytical performance characteristics have been determined by [facility] [place] [place]. It has not been cleared or approved by the U.S. Food and Drug Administration. This assay has been validated pursuant to the CLIA regulations and is used for clinical purposes. Test Performed by [facility], [facility], [address] [place] [address] Dami Potts M.D., Ph.D., Director of Laboratories , CLIA [id number] TEST PERFORMED AT: , Ordering Provider: BRITTNEY CASH Report Released Date/Time: Jul 30, 2023 03:58 PM Reporting Lab: [facility] [address] [facility] [address] Performing Lab: [address] [address] VITAMIN B-1 (THIAMINE)-(Q U) 29 nmol/L 8-30 Aug 07, 2023 08:12 AM [facility] FOLATE Specimen Type: SERUM No comment entered. Ordering Provider: BRITTNEY CASH Report Released Date/Time: Jul 30, 2023 03:58 PM Reporting Lab: [facility] [place] [facility] [address] [facility] [address] Performing Lab: [place] [facility] [facility] [place] [facility] [address] [facility] [address] FOLATE 14.70 ng/mL >5.2 Aug 07, 2023 08:12 AM [facility] TSH Specimen Type: SERUM No comment entered. Ordering Provider: BRITTNEY CASH Report Released Date/Time: Jul 30, 2023 03:58 PM Reporting [facility] [address] [facility] [address] Performing Lab: [facility] [address] [address] TSH 2.25 u[IU]/mL 0.35-5.00 Aug 07, 2023 08:12 AM [facility] VITAMIN B12 Specimen Type: SERUM No comment entered. Ordering Provider: BRITTNEY CASH Report Released Date/Time: Jul 30, 2023 03:58 PM Reporting Lab[facility] [address] [facility] [address] Performing Lab: [place] [facility] [address] [address] VITAMIN B12 552 pg/mL 200-900 Aug 07, 2023 08:12 AM [facility] IRON & TIBC PANEL Specimen Type: SERUM No comment entered. Ordering Provider: BRITTNEY CASH Report Released Date/Time: Jul 30, 2023 03:58 PM Reporting Lab: [place] [facility] [facility] [address] [facility] [address] Performing Lab: [place] [address] [address] TIBC 408 ug/dL 204-475 IRON 59 ug/dL 40-160 Transferrin Saturation 14.5 L 20.0-50.0 Aug 07, 2023 08:12 AM [facility] CBC AND DIFF (AUTO) Specimen Type: BLOOD No comment entered. Ordering Provider: BRITTNEY CASH Report Released Date/Time: Jul 30, 2023 03:58 PM Reporting Lab: [facility] [address] [facility] [address] Performing Lab: [facility] [address] [facility] [address] WBC 5.36 10*3/uL 4.50-11.00 RBC 4.97 10*6/uL 4.23-5.66 HGB 14.7 g/dL 12.8-17 HCT 44.9 39.2-50.4 MCV 90.3 fL 82-99 MCHC 32.7 g/dL 30.8-35.1 PLT 273 10*3/uL 140-360 RDW-CV 13.0 12.0-16.0 [place], Abs 0.59 10*3/uL 0.30-1.10 MCH 29.6 pg 26.2-32.6 Neut % 70.0 43.7-75.8 Lymph % 14.9 14.0-42.3 [place] % 11.0 5.1-13.7 Eos % 3.2 0.4-6.8 [...] and tobacco- related health factors from the [place] facility where the Encounter took place. Current Smoking Status This section includes the most current smoking, or tobacco-related health factor, from the [place] facility where the Encounter took place. Date/Time Current Smoking Status Comment [facility] it Oct 31, 2022 11:30 AM VA-TOBACCO FORMER USER [place] [facility] [place] [facility] Tobacco Use History This section includes a history of the smoking, or tobacco-related health factors, that were collected on or before the date of the Encounter. The data comes from the [place] facility where the Encounter took place. Date/Time Smoking Status/Tobac co Use Comment Facility Oct 31, 2022 11:30 AM VA-TOBACCO QUIT 15 YRS OR MORE [place] [facility] [place] [facility] Sep 17, 2021 03:00 PM VA-TOBACCO FORMER USER [place] [facility] [place] [facility] Sep 17, 2021 03:00 PM VA-TOBACCO QUIT 15 YRS OR MORE [place] [facility] [place] [facility] Aug 15, 2020 10:00 AM VA-TOBACCO FORMER USER [place] [facility] [place] [facility] Aug 15, 2020 10:00 AM VA-TOBACCO QUIT 15 YRS OR MORE [place] [facility] [place] [facility] May 12, 2019 03:07 PM VA-TOBACCO FORMER USER [place] [facility] [place] [facility] May 12, 2019 03:07 PM VA-TOBACCO QUIT 15 YRS OR MORE [place] [facility] [place] [facility] May 31, 2018 01:08 PM VA-TOBACCO FORMER USER [place] [facility] [place] [facility] May 31, 2018 01:08 PM VA-TOBACCO QUIT 15 YRS OR MORE [place] [facility] [place] [facility] Feb 16, 2017 01:33 PM QUIT TOBACCO USE > 7 YEARS AGO quit 16 years ago [place] [facility] [place] [facility] Nov 13, 2015 03:48 PM QUIT TOBACCO USE > 7 YEARS AGO . [place] [facility] [place] [facility] May 12, 2013 12:49 PM QUIT TOBACCO USE > 7 YEARS AGO quit 2001 [place] [facility] [place] [facility] Advance Directives: All historical and current Section Date Range: From patient's date of to the date document was created. This section includes ALL of a patient's completed or amended [place] Advance and Rescinded Directives. The entries below indicate that a directive exists for the patient, but an actual copy is not included with this document. The data comes from all [place] facilities. Date Advance Directives Provider Source Nov 03, 2022 ADVANCE DIRECTIVE LENORA CARCAMO [place] [facility] Aug 16, 2020 ADVANCE DIRECTIVE EDMUND MORGAN [place] [facility] Encounter Notes: All associated encounter notes This section contains the clinical notes associated to the Encounter. Date/Time Encounter Note(s) Provider Source Aug 17, 2023 04:12 PM ADDENDUM: LOCAL TITLE: Addendum STANDARD TITLE: ADDENDUM DATE OF NOTE: AUG 17, 2023@16:12:03 ENTRY DATE: AUG 17, 2023@16:12:04 AUTHOR: ALFA YOO EXP COSIGNER: URGENCY: STATUS: COMPLETED ---- LIPID PANEL ---- SERUM Aug 06 Jun 02 Mar 02 Reference 2023 2023 2022 08:12 15:30 09:38 Units Ranges CHOL 120 120 96 mg/dL <7 - 199 TRIG 189 H 504 H 192 H mg/dL 0 - 150 HDL 37 L 29 L 29 L mg/dL 40 - 60 LDL-d 48 mg/dL <10 - 120 LDL 45 Reflex to dLDL 29 mg/dL 0 - 129 TG improved with diet/moderate weightloss. Pt to see PCP 08/2023. Lab drawn on 08/07/23 seems complete. CPP told him primary office would call if other labs are needed prior to visit. Please check BP x 2- seems he may have white coat syndrome? may also need a BP med adjustment /elizabeth/ ALFA YOO, PHARMD,BCPS CLINICAL PHARMACY PRACTITIONER Signed: 08/17/2023 16:15 Receipt Acknowledged By: 08/19/2023 09:35 /es/ GATITO HOUSTON LPN 08/18/2023 16:32 /es/ Luis F Cash PA-C STAFF PHYSICIAN HELICOPTER SPECIALIST --- Original Document --- 08/17/23 TELEPHONE NOTE/PHARMACY: CHAR TATE, 88 yo WHITE MALE, presents for telephone follow visit for hyperlipidemia management. Pt was last spoken with on 06/09/23 in which no medication changes were made, pt to work on LSMs. Today, pt reports he is doing well. He states he has tried losing some weight in the past few months- lost a few lbs. He has cut back on ice cream and treats. He states his social life revolves around food which makes dieting challenging. He had fasting labs this time around vs non fasting previously. He notes his SBP at home is in 120's, sometimes higher. May have white coat syndrome? Current hyperlipidemia medications: - Rosuvastatin 40 mg [...] DROP INTO ACTIVE EACH EYE EVERY MORNING Inactive Outpatient Medications [...] DOSE WITH FULL GLASS OF WATER 6) LATANOPROST 0.005% OPH SOLN INSTILL 1 DROP INTO EACH DISCONTINUED EYE AT BEDTIME FOR INCREASED PRESSURE IN THE EYE 7) TAMSULOSIN HCL 0.4MG CAP TAKE ONE CAPSULE BY MOUTH DISCONTINUED ONCE DAILY (EDIT) 8) TAMSULOSIN HCL 0.4MG CAP TAKE ONE CAPSULE BY MOUTH DISCONTINUED ONCE DAILY 9) TIMOLOL MALEATE 0.5% OPH SOLN INSTILL 1 DROP INTO DISCONTINUED EACH EYE EVERY MORNING Active Non-VA Medications Status ========= 1) Non-VA ACETAMINOPHEN TAB 1300 BY MOUTH EVERY MORNING ACTIVE AND 650MG BY MOUTH EVERY EVENING 2) Non-VA ASPIRIN 81MG EC TAB 81MG BY MOUTH DAILY ACTIVE 3) Non-VA MULTIVITAMIN/MINERALS CAP/TAB 1 TABLET BY ACTIVE MOUTH EVERY MORNING 25 Total Medications Labs: CHEM 7 TREND LAB CUMULATIVE SELECTED Collection DT Spec GLUCOSE BUN CREATIN Sodium K+/Pot CL CO2 08/07/2023 08:12 SERUM 106 H 15 0.82 140 4.5 107 26 06/02/2023 15:30 SERUM 114 H 14 0.81 140 4.3 109 24 03/02/2023 09:38 SERUM 98 14 0.81 140 4.7 107 25 10/23/2022 08:11 SERUM 101 H 13 0.80 142 4.8 108 23 06/27/2022 09:07 SERUM 104 H 17 0.83 139 4.6 105 27 LAB CUMULATIVE SELECTED 2 No selection items chosen for this component. CHEM 7 Results Collection DT Spec Sodium K+/Pot CL CO2 GLUCOSE BUN 08/07/2023 08:12 SERUM 140 4.5 107 26 106 H 15 06/02/2023 15:30 SERUM 140 4.3 109 24 [...] 110 25 122 H 25 eGFR CKD-EPI 202008/07/23 08:12 85 SERUM LIVER PANEL TREND Collection DT Spec AST ALT T BILI ALK JEANINE T. PROT ALBUMIN 08/07/2023 08:12 SERUM 16 20 0.4 49 6.5 4.0 06/02/2023 15:30 SERUM 17 17 0.3 44 6.6 4.0 03/02/2023 09:38 SERUM 15 18 0.3 55 6.6 3.9 10/23/2022 08:11 SERUM 16 16 0.3 56 6.7 3.9 06/27/2022 09:08 SERUM 17 20 0.5 50 6.6 4.2 HEMOGLOBIN A1C TREND Collection DT Spec HGBA1c 06/02/2023 15:30 BLOOD 5.2 03/02/2023 09:38 BLOOD 5.4 03/18/2021 09:31 BLOOD 5.3 12/24/2018 09:17 BLOOD 5.6 LIPID PANEL TREND Collection DT Spec CHOL HDL CHO/HDL LDL-d LDL-c TRIG 08/07/2023 08:12 SERUM 120 37 L 3.2 45 189 H 06/02/2023 15:30 SERUM 120 29 L 4.1 48 Reflex to dLDL 504 H 03/02/2023 09:38 SERUM 96 29 L 3.3 29 192 H 10/23/2022 08:11 SERUM 102 25 L 4.1 20 287 H 06/19/2022 08:59 SERUM 129 33 L 3.9 44 259 H Vitals: Ht: 63 in [160.0 cm] (03/02/2023 10:05) Wt: 210 lb [95.25 kg] (08/07/2023 08:54) BMI: BMI: 37.3 BP: 142/76 (08/07/2023 09:43) HR: 54 (08/07/2023 08:54) Assessment: CARDIOVASCULAR: Goal BP = <130/80 mmHg -Current BP is140/70 (06/02/2023 14:24) -Lipids: TG elevated 05/2023 -ASA:81 mg daily Plan: - Medication management - CONTINUE: Rosuvastatin 40 mg daily - Recommend pt to do fasting labs in future as his TG otherwise are falsely elevated. - Congratualted pt on reducing tg - Healthy dietary and lifestyle modifications encouraged - Reviewed dietary choices in great length - Repeat lipid panel: tbd by PCP EDUCATION -A shared decision-making approach was used in the development of this plan, involving the [place], clinician, and any caregivers present. The [place] was provided the opportunity express questions or concerns, and the plan was adjusted as needed to address these concerns. -Reviewed with any new medications, changes to the medication list, education, and plan from today's visit. Patient (and/or caregiver) verbalized understanding of the plan, including possible known risks and benefits, and had no additional questions. RTC:prn Time Spent:17 mins PBM PharmD Pharmacotherapy Rem V12: PHARMACIST INTERVENTIONS: LIPID MANAGEMENT Medication monitoring, no dosage change required, continue to monitor and assess /elizabeth/ ALFA YOO PHARMD,BCPS CLINICAL PHARMACY PRACTITIONER Signed: 08/17/2023 16:11 ALFA YOO [place] [facility] [place] [facility] Aug 17, 2023 10:51 AM PHARMACY TELEPHONE ENCOUNTER NOTE: LOCAL TITLE: TELEPHONE NOTE/PHARMACY STANDARD TITLE: PHARMACY TELEPHONE ENCOUNTER NOTE DATE OF NOTE: AUG 17, 2023@10:51 ENTRY DATE: AUG 17, 2023@10:51:20 AUTHOR: ALFA YOO EXP COSIGNER: URGENCY: STATUS: COMPLETED TELEPHONE NOTE/PHARMACY Has ADDENDA CHAR TATE, 88 yo WHITE MALE, presents for telephone follow visit for hyperlipidemia management. Pt was last spoken with on 06/09/23 in which no medication changes were made, pt to work on LSMs. Today, pt reports he is doing well. He states he has tried losing some weight in the past few months- lost a few lbs. He has cut back on ice cream and treats. He states his social life revolves around food which makes dieting challenging. He had fasting labs this time around vs non fasting previously. He notes his SBP at home is in 120's, sometimes higher. May have white coat syndrome? Current hyperlipidemia medications: - Rosuvastatin 40 mg [...] DROP INTO ACTIVE EACH EYE EVERY MORNING Inactive Outpatient Medications [...] DOSE WITH FULL GLASS OF WATER 6) LATANOPROST 0.005% OPH SOLN INSTILL 1 DROP INTO EACH DISCONTINUED EYE AT BEDTIME FOR INCREASED PRESSURE IN THE EYE 7) TAMSULOSIN HCL 0.4MG CAP TAKE ONE CAPSULE BY MOUTH DISCONTINUED ONCE DAILY (EDIT) 8) TAMSULOSIN HCL 0.4MG CAP TAKE ONE CAPSULE BY MOUTH DISCONTINUED ONCE DAILY 9) TIMOLOL MALEATE 0.5% OPH SOLN INSTILL 1 DROP INTO DISCONTINUED EACH EYE EVERY MORNING Active Non-VA Medications Status ========= 1) Non-VA ACETAMINOPHEN TAB 1300 BY MOUTH EVERY MORNING ACTIVE AND 650MG BY MOUTH EVERY EVENING 2) Non-VA ASPIRIN 81MG EC TAB 81MG BY MOUTH DAILY ACTIVE 3) Non-VA MULTIVITAMIN/MINERALS CAP/TAB 1 TABLET BY ACTIVE MOUTH EVERY MORNING 25 Total Medications Labs: CHEM 7 TREND LAB CUMULATIVE SELECTED Collection DT Spec GLUCOSE BUN CREATIN Sodium K+/Pot CL CO2 08/07/2023 08:12 SERUM 106 H 15 0.82 140 4.5 107 26 06/02/2023 15:30 SERUM 114 H 14 0.81 140 4.3 109 24 03/02/2023 09:38 SERUM 98 14 0.81 140 4.7 107 25 10/23/2022 08:11 SERUM 101 H 13 0.80 142 4.8 108 23 06/27/2022 09:07 SERUM 104 H 17 0.83 139 4.6 105 27 LAB CUMULATIVE SELECTED 2 No selection items chosen for this component. CHEM 7 Results Collection DT Spec Sodium K+/Pot CL CO2 GLUCOSE BUN 08/07/2023 08:12 SERUM 140 4.5 107 26 106 H 15 06/02/2023 15:30 SERUM 140 4.3 109 24 [...] 110 25 122 H 25 eGFR CKD-EPI 202008/07/23 08:12 85 SERUM LIVER PANEL TREND Collection DT Spec AST ALT T BILI ALK JEANINE T. PROT ALBUMIN 08/07/2023 08:12 SERUM 16 20 0.4 49 6.5 4.0 06/02/2023 15:30 SERUM 17 17 0.3 44 6.6 4.0 03/02/2023 09:38 SERUM 15 18 0.3 55 6.6 3.9 10/23/2022 08:11 SERUM 16 16 0.3 56 6.7 3.9 06/27/2022 09:08 SERUM 17 20 0.5 50 6.6 4.2 HEMOGLOBIN A1C TREND Collection DT Spec HGBA1c 06/02/2023 15:30 BLOOD 5.2 03/02/2023 09:38 BLOOD 5.4 03/18/2021 09:31 BLOOD 5.3 12/24/2018 09:17 BLOOD 5.6 LIPID PANEL TREND Collection DT Spec CHOL HDL CHO/HDL LDL-d LDL-c TRIG 08/07/2023 08:12 SERUM 120 37 L 3.2 45 189 H 06/02/2023 15:30 SERUM 120 29 L 4.1 48 Reflex to dLDL 504 H 03/02/2023 09:38 SERUM 96 29 L 3.3 29 192 H 10/23/2022 08:11 SERUM 102 25 L 4.1 20 287 H 06/19/2022 08:59 SERUM 129 33 L 3.9 44 259 H Vitals: Ht: 63 in [160.0 cm] (03/02/2023 10:05) Wt: 210 lb [95.25 kg] (08/07/2023 08:54) BMI: BMI: 37.3 BP: 142/76 (08/07/2023 09:43) HR: 54 (08/07/2023 08:54) Assessment: CARDIOVASCULAR: Goal BP = <130/80 mmHg -Current BP is140/70 (06/02/2023 14:24) -Lipids: TG elevated 05/2023 -ASA:81 mg daily Plan: - Medication management - CONTINUE: Rosuvastatin 40 mg daily - Recommend pt to do fasting labs in future as his TG otherwise are falsely elevated. - Congratualted pt on reducing tg - Healthy dietary and lifestyle modifications encouraged - Reviewed dietary choices in great length - Repeat lipid panel: tbd by PCP EDUCATION -A shared decision-making approach was used in the development of this plan, involving the [place], clinician, and any caregivers present. The was provided the opportunity express questions or concerns, and the plan was adjusted as needed to address these concerns. -Reviewed with any new medications, changes to the medication list, education, and plan from today's visit. Patient (and/or caregiver) verbalized understanding of the plan, including possible known risks and benefits, and had no additional questions. RTC:prn Time Spent:17 mins PBM PharmD Pharmacotherapy Rem V12: PHARMACIST INTERVENTIONS: LIPID MANAGEMENT Medication monitoring, no dosage change required, continue to monitor and assess /elizabeth/ ALFA YOO PHARMD,BCPS CLINICAL PHARMACY PRACTITIONER Signed: 08/17/2023 16:11 08/17/2023 ADDENDUM STATUS: COMPLETED ---- LIPID PANEL ---- SERUM Aug 06 Jun 02 Mar 02 Reference 2023 2023 2022 08:12 15:30 09:38 Units Ranges CHOL 120 120 96 mg/dL <7 - 199 TRIG 189 H 504 H 192 H mg/dL 0 - 150 HDL 37 L 29 L 29 L mg/dL 40 - 60 LDL-d 48 mg/dL <10 - 120 LDL 45 Reflex to dLDL 29 mg/dL 0 - 129 TG improved with diet/moderate weightloss. Pt to see PCP 08/2023. Lab drawn on 08/07/23 seems complete. CPP told him primary office would call if other labs are needed prior to visit. Please check BP x 2- seems he may have white coat syndrome? may also need a BP med adjustment /es/ ALFA YOO, PHARMD,[facility] CLINICAL PHARMACY PRACTITIONER Signed: 08/17/2023 16:15 Receipt Acknowledged By: * AWAITING SIGNATURE * GATITO HOUSTON * AWAITING SIGNATURE * LUIS F CASH JODI A [facility]
--- OUTSIDE RECORDS SUMMARY | 2024-05-16 14:06 | XMS_ITS | Encounter Summary ---
Author Name [facility] [facility] [place] Organization [facility] [place] Address [address] [place] [address] Care Team Providers Care Accounting Advisory Services Manager Name Role Phone KIARA ESPARZA Primary Care [...] Name Patient's Relationship to Policy Colbert KYLIE [facility] (WNR) MEDICARE ADVANTAGE [facility] (WNR) Jun 01, 2017 [id number] [phone] Krishan TATE PATIENT [facility] (WNR) MEDICARE ADVANTAGE [facility] (WNR) Jun 01, 2017 [id number] Krishan TATE PATIENT [facility] (WNR) MEDICARE ADVANTAGE [facility] (WNR) Jun 01, 2017 [id number] Krishan TATE PATIENT Selected Encounter This section includes the information on record at NH for the Encounter. Date/Time Encounter Type Encounter Description Reason Pro vider Source Jan 06, 2024 12:00 AM Outpatient Encounter COMMUNITY CARE CONSULT IHE Encounter Template Text not used by NH Plan of Treatment: Future Appointments (+ 6 months) and Future Tests (+/- 45 days) The Plan of Treatment section includes future care activities for the patient from all NH treatmentfacilities. This section includes future appointments and future orders which are active, pending or scheduled. Future Appointments This section includes appointments that were scheduled to occur 6 months from the date of the Encounter, up to a maximum of 20 appointments. The data comes from all NH treatment facilities. Appointment Date/Time Appointment Type Appointme nt Facility Name Jan 12, 2024 02:30 PM AMBULATORY - [...] [facility] [place] [facility] Apr 07, 2024 08:00 AM AMBULATORY - MEDICINE [facility] [place] [facility] Apr 20, 2024 10:40 AM AMBULATORY - MEDICINE [facility] [place] [facility] May 09, 2024 10:30 AM AMBULATORY - MEDICINE [facility] [place] [facility] May 16, 2024 02:15 PM AMBULATORY - MEDICINE [facility] [place] [facility] Jun 03, 2024 03:00 PM AMBULATORY - MEDICINE [facility] [place] [facility] Jun 16, 2024 02:30 PM AMBULATORY - MEDICINE [facility] [place] [facility] Jun 22, 2024 10:50 AM [facility] Lab Results: +/- 30 days of the encounter This section includes the Chemistry and Hematology Lab Results on record with NH for the patient. Radiology Reports and Pathology Reports are provided separately, in subsequent sections. Lab Results This section contains the Chemistry/Hematology Results that were resulted 30 days before or 30 daysafter the date of the Encounter. Date/Time Source Result Type Result - Unit Interpretation Reference Range Comment Jan 18, 2024 09:04 AM [facility] VITAMIN D (25-OH) Specimen Type: SERUM No comment entered. Ordering Provider: STEVE ESPARZA Report Released Date/Time: Sep 28, 2023 11:20 AM Reporting Lab: [address] [address] Performing Lab: [address] [address] VITAMIN D (25-OH) 40 ng/mL 20-50 Jan 18, 2024 09:04 AM [facility] LIPID PANEL FASTING Specimen Type: SERUM No comment entered. Ordering Provider: STEVE ESPARZA Report Released Date/Time: Sep 28, 2023 11:20 AM Reporting Lab: [facility] [address] [facility] [address] Performing Lab: [address] [address] CHOLESTEROL 107 mg/dL TRIGLYCERIDE 225 mg/dL H 0-150 LDL calculated 33 mg/dL 0-129 CHOL/HDL 3.7 HDL CHOLESTEROL 29 mg/dL L 40-60 Jan 18, 2024 09:04 AM [facility] BASIC METABOLIC PANEL (fasting) Specimen Type: SERUM No comment entered. Ordering Provider: STEVE ESPARZA Report Released Date/Time: Sep 28, 2023 11:20 AM Reporting Lab: [address] [address] Performing Lab: [address] [address] UREA NITROGEN 17 mg/dL 7-25 GLUCOSE 93 mg/dL 65-100 SODIUM 141 mmol/L 135-145 POTASSIUM 4.7 mmol/L 3.5-5.0 CHLORIDE 109 mmol/L 100-110 CO2 25 meq/L 20-30 CREATININE, Serum 0.86 mg/dL 0.50-1.40 eGFR(CKD-EPI 2020) 84 mL/min >60 Jan 18, 2024 09:04 AM [facility] LIVER FUNCTION Specimen Type: SERUM No comment entered. Ordering Provider: STEVE ESPARZA Report Released Date/Time: Sep 28, 2023 11:20 AM Reporting Lab: [address] [address] Performing Lab: [address] [address] PROTEIN,TOTAL 6.1 g/dL 6.0-8.3 ALBUMIN 3.9 g/dL 3.5-5.0 ALKALINE PHOSPHATASE 44 U/L 40-150 AST 14 U/L 5-34 ALT 14 U/L BILIRUBIN, TOTAL 0.4 mg/dL 0.2-1.2 Social History: Smoking Status (Most current) and Tobacco Use (All prior to encounter date) This section includes the most current, and the historical, smoking and tobacco- related health factors from the NH facility where the Encounter took place. Current Smoking Status This section includes the most current smoking, or tobacco-related health factor, from the NH facility where the Encounter took place. Date/Time Current Smoking Status Comment [facility] Dec 21, 2023 11:40 AM NH-TOBACCO QUIT 15 YRS OR MORE [facility] Tobacco Use History This section includes a history of the smoking, or tobacco-related health factors, that were collected on or before the date of the Encounter. The data comes from the NH facility where the Encounter took place. Date/Time Smoking Status/Tobac co Use Comment Facility Dec 21, 2023 11:40 AM NH-TOBACCO QUIT 15 YRS OR MORE [facility] Oct 31, 2022 11:30 AM VA-TOBACCO FORMER USER [facility] Oct 31, 2022 11:30 AM VA-TOBACCO QUIT 15 YRS OR MORE [facility] [place] [facility] Sep 17, 2021 03:00 PM VA-TOBACCO FORMER USER [facility] [place] [facility] Sep 17, 2021 03:00 PM VA-TOBACCO QUIT 15 YRS OR MORE [facility] [place] [facility] Aug 15, 2020 10:00 AM VA-TOBACCO FORMER USER [facility] [place] [facility] Aug 15, 2020 10:00 AM VA-TOBACCO QUIT 15 YRS OR MORE [facility] [place] [facility] May 12, 2019 03:07 PM VA-TOBACCO FORMER USER [facility] [place] [facility] May 12, 2019 03:07 PM VA-TOBACCO QUIT 15 YRS OR MORE [facility] [place] [facility] May 31, 2018 01:08 PM VA-TOBACCO FORMER USER [facility] [place] [facility] May 31, 2018 01:08 PM VA-TOBACCO QUIT 15 YRS OR MORE [facility] [place] [facility] Feb 16, 2017 01:33 PM QUIT TOBACCO USE > 7 YEARS AGO quit 16 years ago [facility] [place] [facility] Nov 13, 2015 03:48 PM QUIT TOBACCO USE > 7 YEARS AGO . [facility] [place] [facility] May 12, 2013 12:49 PM QUIT TOBACCO USE > 7 YEARS AGO quit 2002 [facility] [place] [facility] Advance Directives: All historical and current Section Date Range: From patient's date of to the date document was created. This section includes ALL of a patient's completed or amended NH Advance and Rescinded Directives. The entries below indicate that a directive exists for the patient, but an actual copy is not included with this document. The data comes from all NH facilities. Date Advance Directives Provider Source Nov 03, 2022 ADVANCE DIRECTIVE LENORA CARCAMO [facility] [place] [facility] Aug 16, 2020 ADVANCE DIRECTIVE EDMUND MORGAN [place] [facility] [place] [facility] Encounter Notes: All associated encounter notes This section contains the clinical notes associated to the Encounter. Date/Time Encounter Note(s) Provider Source Jan 06, 2024 12:00 AM NONVA CONSULT: LOCAL TITLE: COMMUNITY CARE-CONSULT RESULT NOTE STANDARD TITLE: NONVA CONSULT DATE OF NOTE: JAN 06, 2024 ENTRY DATE: JAN 22, 2024@14:09:45 AUTHOR: VERNA LARRY MA EXP COSIGNER: URGENCY: STATUS: COMPLETED VistA Imaging - Scanned Document SCANNED DOCUMENT SIGNATURE NOT REQUIRED Electronically Filed: 01/22/2024 by: VERNA LARRY DEMONSTRATOR KNITTING VERNA LARRY [facility]
--- OUTSIDE RECORDS SUMMARY | 2024-05-16 14:06 | XMS_ITS | Encounter Summary ---
Author Name [place] Address [address] [place] [address] Care Team Providers Care Blast Furnace Operator Name Role Phone KIARA CASH Primary Care [...] Name Patient's Relationship to Policy Colbert BCKYLIE [facility] (WNR) MEDICARE ADVANTAGE [facility] (WNR) Jun 01, 2017 [id number] [phone] Krishan TATE PATIENT [facility] (WNR) MEDICARE ADVANTAGE [facility] (WNR) Jun 01, 2017 [id number] Krishan TATE PATIENT [facility] (WNR) MEDICARE ADVANTAGE [facility] (WNR) Jun 01, 2017 [id number] [phone] Krishan TATE PATIENT Selected Encounter This section includes the information on record at [place] for the Encounter. Date/Time Encounter Type Encounter Description Reason Provider Source Jan 25, 2024 10:30 AM OFFICE O/P EST LOW 20 MIN PRIMARY CARE/MEDICINE ICD-10-CM G47.30 Sleep apnea, unspecified GALLITOWAGNER,WILL NEREIDA F IHE Encounter Template Text not used by [place] Assessments - Encounter Diagnoses This section includes the primary and secondary diagnoses documented for the Encounter. 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 This section includes future appointments and future orders which are active, pending or scheduled. Future Appointments This section includes appointments that were scheduled to occur 6 months from the date of the Encounter, up to a maximum of 20 appointments. The data comes from all [place] treatment facilities. Appointment Date/Time Appointment Type Appointme nt Facility Name Feb 05, 2024 11:00 AM AMBULATORY - MEDICINE [place] [facility] [place] [facility] Feb 16, 2024 11:30 AM AMBULATORY - MEDICINE [place] [facility] [place] [facility] Mar 22, 2024 10:30 AM AMBULATORY - MEDICINE [facility] [place] [facility] Mar 22, 2024 10:31 AM AMBULATORY - MEDICINE [facility] [place] [facility] Mar 24, 2024 02:30 PM AMBULATORY - MEDICINE [facility] [place] [facility] Mar 29, 2024 10:30 AM AMBULATORY - NONE [facility] [place] [facility] Apr 07, 2024 08:00 AM AMBULATORY - MEDICINE [place] [facility] [place] [facility] Apr 20, 2024 10:40 AM AMBULATORY - MEDICINE [facility] [place] [facility] May 09, 2024 10:30 AM AMBULATORY - MEDICINE [place] [facility] [place] [facility] May 16, 2024 02:15 PM AMBULATORY - MEDICINE [place] [facility] [place] [facility] Jun 03, 2024 03:00 PM [facility] Jun 16, 2024 02:30 PM [facility] Jun 22, 2024 10:50 AM [facility] Lab Results: +/- 30 days of the encounter This section includes the Chemistry and Hematology Lab Results on record with [place] for the patient. Radiology Reports and Pathology Reports are provided separately, in subsequent sections. Lab Results This section contains the Chemistry/Hematology Results that were resulted 30 days before or 30 daysafter the date of the Encounter. Date/Time Source Result Type Result - Unit Interpretation Reference Range Comment Jan 18, 2024 09:04 AM [facility] VITAMIN D (25-OH) Specimen Type: SERUM No comment entered. Ordering Provider: STEVE CASH Report Released Date/Time: Sep 28, 2023 11:20 AM Reporting Lab: [facility] [address] [facility] [address] Performing Lab: [address] [address] VITAMIN D (25-OH) 40 ng/mL 20-50 Jan 18, 2024 09:04 AM [facility] BASIC METABOLIC PANEL (fasting) Specimen Type: SERUM No comment entered. Ordering Provider: STEVE CASH Report Released Date/Time: Sep 28, 2023 11:20 AM Reporting Lab: [facility] [address] [facility] [address] Performing Lab: [address] [address] UREA NITROGEN 17 mg/dL 7-25 GLUCOSE 93 mg/dL 65-100 SODIUM 141 mmol/L 135-145 POTASSIUM 4.7 mmol/L 3.5-5.0 CHLORIDE 109 mmol/L 100-110 CO2 25 meq/L 20-30 CREATININE, Serum 0.86 mg/dL 0.50-1.40 eGFR(CKD-EPI 2020) 84 mL/min >60 Jan 18, 2024 09:04 AM [facility] LIPID PANEL FASTING Specimen Type: SERUM No comment entered. Ordering Provider: STEVE CASH Report Released Date/Time: Sep 28, 2023 11:20 AM Reporting Lab: [address] [address] Performing Lab: [address] [address] CHOLESTEROL 107 mg/dL TRIGLYCERIDE 225 mg/dL H 0-150 LDL calculated 33 mg/dL 0-129 CHOL/HDL 3.7 HDL CHOLESTEROL 29 mg/dL L 40-60 Jan 18, 2024 09:04 AM [facility] LIVER FUNCTION Specimen Type: SERUM No comment entered. Ordering Provider: STEVE CASH Report Released Date/Time: Sep 28, 2023 11:20 AM Reporting Lab: [facility] [address] [facility] [address] Performing Lab: [address] [address] PROTEIN,TOTAL 6.1 g/dL 6.0-8.3 ALBUMIN 3.9 g/dL 3.5-5.0 ALKALINE PHOSPHATASE 44 U/L 40-150 AST 14 U/L 5-34 ALT 14 U/L BILIRUBIN, TOTAL 0.4 mg/dL 0.2-1.2 Vital Signs: All taken on the encounter date This section contains inpatient and outpatient Vital Signs collected on the date of the Encounter. Date/Time Temperature Pulse Blood Pressure Respiratory Rate SP02 Pain Height Weight Body Mass Index Source Jan 25, 2024 10:28 AM 97.7 57 146/70 16 93 6 219 39 [facility] Social History: Smoking Status (Most [...] took place. Date/Time Current Smoking Status Comment [facility] Dec 21, 2023 11:40 AM VA-TOBACCO QUIT 15 YRS OR MORE [place] [facility] [place] [facility] Tobacco Use History This section includes a history of the smoking, or tobacco-related health factors, that were collected on or before the date of the Encounter. The data comes from the [place] facility where the Encounter took place. Date/Time Smoking Status/Tobac co Use Comment [facility] Dec 21, 2023 11:40 AM VA-TOBACCO QUIT 15 YRS OR MORE [facility] [place] [facility] Oct 31, 2022 11:30 AM VA-TOBACCO FORMER USER [facility] [place] [facility] Oct 31, 2022 11:30 AM VA-TOBACCO QUIT 15 YRS OR MORE [place] [facility] [place] [facility] Sep 17, 2021 03:00 PM VA-TOBACCO FORMER USER [facility] [place] [facility] Sep 17, 2021 03:00 PM VA-TOBACCO QUIT 15 YRS OR MORE [place] [facility] [place] [facility] Aug 15, 2020 10:00 AM VA-TOBACCO FORMER USER [place] [facility] [place] [facility] Aug 15, 2020 10:00 AM VA-TOBACCO QUIT 15 YRS OR MORE [place] [facility] [place] [facility] May 12, 2019 03:07 PM VA-TOBACCO FORMER USER [facility] [place] [facility] May 12, 2019 03:07 PM VA-TOBACCO QUIT 15 YRS OR MORE [place] [facility] [place] [facility] May 31, 2018 01:08 PM VA-TOBACCO FORMER USER [facility] [place] [facility] May 31, 2018 01:08 PM VA-TOBACCO QUIT 15 YRS OR MORE [facility] [place] [facility] Feb 16, 2017 01:33 PM QUIT TOBACCO USE > 7 YEARS AGO quit 16 years ago [facility] [place] [facility] Nov 13, 2015 03:48 PM QUIT TOBACCO USE > 7 YEARS AGO . [facility] [place] [facility] May 12, 2013 12:49 PM QUIT TOBACCO USE > 7 YEARS AGO quit 2001 [place] [facility] [place] [facility] Advance Directives: All historical and current [...] Nov 03, 2022 ADVANCE DIRECTIVE LENORA CARCAMO [place] [facility] Aug 16, 2020 ADVANCE DIRECTIVE EDMUND MORGAN [place] [facility] Encounter Notes: All associated encounter notes This section contains the clinical notes associated to the Encounter. Date/Time Encounter Note(s) Provider Source Jan 25, 2024 11:03 AM PHYSICIAN TAXONOMIST NOTE: LOCAL TITLE: PA NOTE STANDARD TITLE: PHYSICIAN TAXONOMIST NOTE DATE OF NOTE: JAN 25, 2024@11:03 ENTRY DATE: JAN 25, 2024@11:03:43 AUTHOR: KIARA CASH COSIGNER: URGENCY: STATUS: COMPLETED PA NOTE Has ADDENDA CC/HPI/A/P: 88 year old MALE here in follow-up for; hematuria, pending urology f/u 01/05/2025. htn, near goal, we revisit cough, I ask him to hold ACEI, monitor BP and report on cough. damien, using cpap. Review of systems: Patient reports no changes from [facility], in meds or any admissions. Active problems - Computerized Problem List is the source for the followin. Hematuria (SCT 59970259) 2. Inflamed Seborrheic Keratosis (SCT 88479953) 3. Glaucoma 4. Chronic gastric ulcer 5. Obesity 6. Primary generalized osteoarthritis 7. Obstructive sleep apnea syndrome 8. Coronary arteriosclerosis 9. Benign essential hypertension (SNOMED CT 1626441) 10. 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 BPH W/O URINARY OBSTRUCT SERVICE CONNECTED % - NONE FOUND VA and Non VA meds were reconciled with the patient who left with a corrected copy. See medication page for details. Active and Recently Outpatient Medications (excluding Supplies): Active Outpatient Medications Status 1) CAPSAICIN 0.025% CREAM APPLY A THIN LAYER TOPICALLY ACTIVE TWICE DAILY NEEDED FOR KNEES 2) CARBOXYMETHYLCELLULOSE NA 0.5% OPH SOLN INSTILL 1 ACTIVE DROP INTO EACH EYE FOUR TIMES DAILY NEEDED FOR DRYNESS 3) FERROUS SULFATE 325MG TAB TAKE ONE TABLET BY MOUTH ACTIVE ONCE DAILY TO SUPPLEMENT IRON 4) LISINOPRIL 10MG TAB TAKE ONE TABLET BY MOUTH ONCE ACTIVE DAILY TO CONTROL BLOOD PRESSURE 5) LUBRICATING (PF) OPH OINT APPLY THIN RIBBON INTO EACH ACTIVE EYE AT BEDTIME 6) METOPROLOL TARTRATE 50MG TAB TAKE ONE TABLET BY MOUTH ACTIVE TWICE DAILY FOR BLOOD PRESSURE/HEART 7) OMEPRAZOLE 20MG EC CAP TAKE ONE CAPSULE BY MOUTH ACTIVE (S) EVERY MORNING 30 MINUTES BEFORE BREAKFAST 8) ROSUVASTATIN CA 40MG TAB TAKE ONE TABLET BY MOUTH ACTIVE ONCE DAILY FOR CHOLESTEROL 9) TAMSULOSIN HCL 0.4MG CAP TAKE ONE CAPSULE BY MOUTH ACTIVE ONCE DAILY FOR ENLARGED PROSTATE 10) TIMOLOL MALEATE 0.5% OPH SOLN INSTILL 1 DROP INTO ACTIVE EACH EYE EVERY MORNING Inactive Outpatient Medications Status 1) DICLOFENAC NA 1% TOP GEL APPLY 2 GRAMS TOPICALLY FOUR TIMES A DAY FOR OSTEOARTHRITIS - USE DOSING CARD PROVIDED IN BOX APPLY TO HANDS 2) HYLAN G-F20 48MG/6ML INJ SYRINGE 6ML INJECT 48MG/6ML INTRA-ARTICULAR NEEDED DIRECTED BY PROVIDER Active Non-VA Medications Status 1) Non-VA ACETAMINOPHEN TAB 1300 BY MOUTH EVERY MORNING ACTIVE 2) Non-VA ASPIRIN 81MG EC TAB 81MG BY MOUTH DAILY ACTIVE 3) Non-VA MULTIVITAMIN/MINERALS CAP/TAB 1 TABLET BY ACTIVE MOUTH EVERY MORNING 15 Total Medications 97.7 F [36.5 C] (01/25/2024 10:28) 57 (01/25/2024 10:28) 16 (01/25/2024 10:28) 146/70 (01/25/2024 10:28) 6 (01/25/2024 10:28) 63 in [160.0 cm] (03/02/2023 10:05) 219 lb [99.34 kg] (01/25/2024 10:28) BMI: 38.9 Neuro: Alert and oriented times three, grossly nonfocal, nasolabial folds intact. Recent labs reviewed with patient today:yes Advance Directive Screen AD: Patient has an Advance Directive on file at this [facility]. No updates are needed at this time. The patient received education about Advance Directives and written notification of his/her rights. /shakir Cash PA-C STAFF PHYSICIAN TAXONOMIST Signed: 01/25/2024 11:22 01/25/2024 ADDENDUM STATUS: COMPLETED cva and plmdo f/u neurology note frm 12/22/2023 is reviewed, no sig changes, they plan f/u 06/22/2024. /shakir Cash PA-C STAFF PHYSICIAN TAXONOMIST Signed: 01/25/2024 16:16 KIARA CASH [place] [facility]
--- OUTSIDE RECORDS SUMMARY | 2024-05-16 14:06 | XMS_ITS | Encounter Summary ---
Author Name [facility] [place] [facility] [place] Organization [facility] [place] Address [address] [place] [address] Care Team Providers Care Tannery Gummer Name Role Phone KIARA ESPARZA Primary Care [...] Colbert's Name Patient's Relationship to Policy Colbert [facility] (WNR) MEDICARE [facility] (WNR) Jun 01, 2017 [id number] [phone] Krishan TATE PATIENT [facility] (WNR) MEDICARE [facility] (WNR) Jun 01, 2017 [id number] [phone] Krishan TATE PATIENT [facility] (WNR) MEDICARE ADVANTAGE [facility] (WNR) Jun 01, 2017 [id number] Krishan TATE PATIENT Selected Encounter This section includes the information on record at [place] for the Encounter. Date/Time Encounter Type Encounter Description Reason Pro vider Source Dec 10, 2023 03:14 PM Outpatient Encounter OPTOMETRY IHE Encounter Template Text not used by [place] Plan of Treatment: Future Appointments (+ 6 [...] - MEDICINE [place] [facility] [facility] Jan 06, 2024 10:40 AM AMBULATORY - MEDICINE [place] [facility] [place] [facility] Jan 12, 2024 02:30 PM AMBULATORY - MEDICINE [place] [facility] [place] [facility] Jan 25, 2024 10:30 AM AMBULATORY - MEDICINE [place] [facility] [place] [facility] Feb 05, 2024 11:00 AM AMBULATORY - MEDICINE [place] [facility] [place] [facility] Feb 16, 2024 11:30 AM AMBULATORY - MEDICINE [facility] [place] [facility] Mar 22, 2024 10:30 AM AMBULATORY - MEDICINE [place] [facility] [place] [facility] Mar 22, 2024 10:31 AM AMBULATORY - MEDICINE [facility] [place] [facility] Mar 24, 2024 02:30 PM AMBULATORY - MEDICINE [facility] [place] [facility] Mar 29, 2024 10:30 AM AMBULATORY - NONE [facility] [place] [facility] Apr 07, 2024 08:00 AM AMBULATORY - MEDICINE [facility] [place] [facility] Apr 20, 2024 10:40 AM AMBULATORY - MEDICINE [facility] [place] [facility] May 09, 2024 10:30 AM AMBULATORY - MEDICINE [facility] [place] [facility] May 16, 2024 02:15 PM AMBULATORY - MEDICINE [facility] [place] [facility] Jun 03, 2024 03:00 PM [facility] [place] [facility] Active, Pending, and Scheduled Orders This section includes a listing of several types of active, pending, and scheduled orders, including clinic medications orders, diagnostic test orders, procedure orders and consult orders; where the start date of the order is 45 days before the date of the Encounter or 45 days after the date of theEncounter. The data comes from all [place] treatment facilities. Test Date/Time Test Type Test Details Facility Name October 28, 2023 12:00 AM Laboratory - Chemi stry Order VITAMIN D (25-[place]) BLOOD (SST-SERUM) SP [facility] Social History: Smoking Status (Most current) [...] 31, 2022 11:30 AM VA-TOBACCO FOR[facility] USER [place] [facility] Tobacco Use History This section includes a history of the smoking, or tobacco-related health factors, that were collected on or before the date of the Encounter. The data comes from the [place] facility where the Encounter took place. Date/Time Smoking Status/Tobac co Use Comment Facility Oct 31, 2022 11:30 AM VA-TOBACCO QUIT 15 YRS OR MORE [place] [facility] [place] [facility] Sep 17, 2021 03:00 PM VA-TOBACCO FORMER USER [place] [facility] [place] [facility] Sep 17, 2021 03:00 PM VA-TOBACCO QUIT 15 YRS OR MORE [place] [facility] [place] [facility] Aug 15, 2020 10:00 AM VA-TOBACCO FORMER USER [place] [facility] [place] [facility] Aug 15, 2020 10:00 AM VA-TOBACCO QUIT 15 YRS OR MORE [place] [facility] [facility] May 12, 2019 03:07 PM VA-TOBACCO FORMER USER [place] [facility] [place] [facility] May 12, 2019 03:07 PM VA-TOBACCO QUIT 15 YRS OR MORE [facility] May 31, 2018 01:08 PM VA-TOBACCO FORMER USER [place] [facility] [facility] May 31, 2018 01:08 PM VA-TOBACCO QUIT 15 YRS OR MORE [place] [facility] Feb 16, 2017 01:33 PM QUIT TOBACCO USE > 7 YEARS AGO quit 16 years ago [facility] Nov 13, 2015 03:48 PM QUIT TOBACCO USE > 7 YEARS AGO . [place] [facility] May 12, 2013 12:49 PM QUIT TOBACCO USE > 7 YEARS AGO quit 2001 [facility] Advance Directives: All historical and current [...] ADVANCE DIRECTIVE LENORA CARCAMO [facility] Aug 16, 2020 ADVANCE DIRECTIVE EDMUND MORGAN [facility] Encounter Notes: All associated encounter notes This section contains the clinical notes associated to the Encounter. Date/Time Encounter Note(s) Provider Source Dec 10, 2023 03:14 PM TELEPHONE ENCOUNTE R NOTE: LOCAL TITLE: TELEPHONE NOTE/SPECIALTY CLINIC STANDARD TITLE: TELEPHONE ENCOUNTER NOTE DATE OF NOTE: DEC 10, 2023@15:14 ENTRY DATE: DEC 10, 2023@15:14:48 AUTHOR: ADE BALBUENA EXP COSIGNER: URGENCY: STATUS: COMPLETED Called and left message on voicemail. Patients appointment with optometry on 02/18/2024 Needs to be rescheduled with a PID of 02/14/2024 Letter mailed [phone] Ext: [phone] /elizabeth/ ADE BALBUENA ADVANCED PCB DESIGN ENGINEER Signed: 12/10/2023 15:15 ADE BALBUENA [facility]
--- OUTSIDE RECORDS SUMMARY | 2024-05-16 14:06 | XMS_ITS | Encounter Summary ---
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 Role Phone KIARA ESPARZA Primary Care [...] Colbert's Name Patient's Relationship to Policy Colbert [facility] (WNR) MEDICARE ADVANTAGE [facility] (WNR) Jun 01, 2017 [id number] Krishan TATE PATIENT [facility] (WNR) MEDICARE ADVANTAGE [facility] (WNR) Jun 01, 2017 [id number] [phone] Krishan TATE PATIENT [facility] (WNR) MEDICARE ADVANTAGE [facility] (WNR) Jun 01, 2017 [id number] [phone] Krishan TATE PATIENT Selected Encounter This section includes the information on record at [place] for the Encounter. Date/Time Encounter Type Encounter Description Reason Pro vider Source Feb 05, 2024 10:57 AM Outpatient Encounter EVENT (HISTORICAL) IHE Encounter Template Text not used by [place] Plan of Treatment: Future Appointments (+ 6 months) and Future Tests (+/- 45 days) The Plan of Treatment section includes future care activities for the patient from all [place] treatmentfacilities. This section includes future appointments and future orders which are active, pending or scheduled. Future Appointments This section includes appointments that were scheduled to occur 6 months from the date of the Encounter, up to a maximum of 20 appointments. The data comes from all [place] treatment facilities. Appointment Date/Time Appointment Type Appointme nt Facility Name Feb 16, 2024 11:30 AM AMBULATORY - MEDICINE [facility] [place] [facility] Mar 22, 2024 10:30 AM AMBULATORY - MEDICINE [facility] [place] [facility] Mar 22, 2024 10:31 AM AMBULATORY - MEDICINE [place] [facility] [place] [facility] Mar 24, 2024 02:30 PM AMBULATORY - MEDICINE [facility] [place] [facility] Mar 29, 2024 10:30 AM AMBULATORY - NONE [place] [facility] [place] [facility] Apr 07, 2024 08:00 AM AMBULATORY - MEDICINE [facility] [place] [facility] Apr 20, 2024 10:40 AM AMBULATORY - MEDICINE [place] [facility] [place] [facility] May 09, 2024 10:30 AM AMBULATORY - MEDICINE [place] [facility] [place] [facility] May 16, 2024 02:15 PM AMBULATORY - MEDICINE [place] [facility] [place] [facility] Jun 03, 2024 03:00 PM AMBULATORY - MEDICINE [place] [facility] [place] [facility] Jun 16, 2024 02:30 PM AMBULATORY - MEDICINE [place] [facility] [place] [facility] Jun 22, 2024 10:50 AM AMBULATORY - MEDICINE [place] [facility] [place] [facility] Lab Results: +/- 30 days of the encounter This section includes the Chemistry and Hematology Lab Results on record with [place] for the patient. Radiology Reports and Pathology Reports are provided separately, in subsequent sections. Lab Results This section contains the Chemistry/Hematology Results that were resulted 30 days before or 30 daysafter the date of the Encounter. Date/Time Source Result Type Result - Unit Interpretation Reference Range Comment Jan 18, 2024 09:04 AM [facility] VITAMIN D (25-[place]) Specimen Type: SERUM No comment entered. Ordering Provider: STEVE ESPARZA Report Released Date/Time: Sep 28, 2023 11:20 AM Reporting Lab: [facility] [address] [facility] [address] Performing Lab: [facility] [address] VITAMIN D (25-[place]) 40 ng/mL 20-50 Jan 18, 2024 09:04 AM [facility] LIPID PANEL FASTING Specimen Type: SERUM No comment entered. Ordering Provider: STEVE ESPARZA Report Released Date/Time: Sep 28, 2023 11:20 AM Reporting Lab: [address] [address] Performing Lab: [address] [address] CHOLESTEROL 107 mg/dL TRIGLYCERIDE 225 mg/dL H 0-150 LDL calculated 33 mg/dL 0-129 CHOL/HDL 3.7 HDL CHOLESTEROL 29 mg/dL L 40-60 Jan 18, 2024 09:04 AM [facility] BASIC METABOLIC PANEL (fasting) Specimen Type: SERUM No comment entered. Ordering Provider: STEVE ESPARZA Report Released Date/Time: Sep 28, 2023 11:20 AM Reporting Lab: [address] [address] [facility]forming [facility]: [facility] [address] UREA NITROGEN 17 mg/dL 7-25 GLUCOSE 93 mg/dL 65-100 SODIUM 141 mmol/L 135-145 POTASSIUM 4.7 mmol/L 3.5-5.0 CHLORIDE 109 mmol/L 100-110 CO2 25 meq/L 20-30 CREATININE, Serum 0.86 mg/dL 0.50-1.40 eGFR(CKD-EPI 2020) 84 mL/min >60 Jan 18, 2024 09:04 AM [facility] LIVER FUNCTION Specimen Type: SERUM No comment entered. Ordering Provider: STEVE ESPARZA Report Released Date/Time: Sep 28, 2023 11:20 AM Reporting Lab: [facility] [address] [facility] [address] Performing Lab: [facility] [address] [facility] [address] PROTEIN,TOTAL 6.1 g/dL 6.0-8.3 ALBUMIN 3.9 g/dL 3.5-5.0 ALKALINE PHOSPHATASE 44 U/L 40-150 AST 14 U/L 5-34 ALT 14 U/L BILIRUBIN, TOTAL 0.4 mg/dL 0.2-1.2 Vital Signs: All taken on the encounter date This section contains inpatient and outpatient Vital Signs collected on the date of the Encounter. Date/Time Temperature Pulse Blood Pressure Respiratory Rate SP02 Pain Height Weight Body Mass Index Source Feb 05, 2024 10:51 AM 97 68 132/78 18 95 5 212.2 38 [facility] Social History: Smoking Status (Most current) and Tobacco Use (All prior to encounter date) This section includes the most current, and the historical, smoking and tobacco- related health factors from the [place] facility where the Encounter took place. Current Smoking Status This section includes the most current smoking, or tobacco-related health factor, from the [place] facility where the Encounter took place. Date/Time Current Smoking Status Comment [facility] Dec 21, 2023 11:40 AM VA-TOBACCO FORMER USER [facility] Tobacco Use History This section includes a history of the smoking, or tobacco-related health factors, that were collected on or before the date of the Encounter. The data comes from the [place] facility where the Encounter took place. Date/Time Smoking Status/Tobac co Use Comment Facility Dec 21, 2023 11:40 AM VA-TOBACCO QUIT 15 YRS OR MORE [facility] Oct 31, 2022 11:30 AM VA-TOBACCO FORMER USER [facility] Oct 31, 2022 11:30 AM VA-TOBACCO QUIT 15 YRS OR MORE [place] [facility] [place] [facility] Sep 17, 2021 03:00 PM VA-TOBACCO FORMER USER [place] [facility] [facility] Sep 17, 2021 03:00 PM VA-TOBACCO QUIT 15 YRS OR MORE [place] [facility] [place] [facility] Aug 15, 2020 10:00 AM VA-TOBACCO FORMER USER [place] [facility] [facility] Aug 15, 2020 10:00 AM VA-TOBACCO QUIT 15 YRS OR MORE [place] [facility] [place] [facility] May 12, 2019 03:07 PM VA-TOBACCO FORMER USER [place] [facility] [facility] May 12, 2019 03:07 PM VA-TOBACCO QUIT 15 YRS OR MORE [place] [facility] [facility] May 31, 2018 01:08 PM VA-TOBACCO FORMER USER [place] [facility] [place] [facility] May 31, 2018 01:08 PM VA-TOBACCO QUIT 15 YRS OR MORE [place] [facility] [place] [facility] Feb 16, 2017 01:33 PM QUIT TOBACCO USE > 7 YEARS AGO quit 16 years ago [place] [facility] [place] [facility] Nov 13, 2015 03:48 PM QUIT TOBACCO USE > 7 YEARS AGO . [place] [facility] [place] [facility] May 12, 2013 12:49 PM QUIT TOBACCO USE > 7 YEARS AGO quit 2002 [place] [facility] [place] [facility] Advance Directives: All historical and current Section Date Range: From patient's date of to the date document was created. This section includes ALL of a patient's completed or amended [place] Advance and Rescinded Directives. The entries below indicate that a directive exists for the patient, but an actual copy is not included with this document. The data comes from all [place] facilities. Date Advance Directives Provider Source Nov 03, 2022 ADVANCE DIRECTIVE LENORA CARCAMO [place] [facility] [place] [facility] Aug 16, 2020 ADVANCE DIRECTIVE EDMUND MORGAN [place] [facility]
--- OUTSIDE RECORDS SUMMARY | 2024-05-16 14:06 | XMS_ITS ---
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 Role Phone KIARA ESPARZA Primary [...] Colbert's Name Patient's Relationship to Policy Colbert [facility] (WNR) MEDICARE ADVANTAGE [facility] (WNR) Jun 01, 2017 [id number] [phone] Krishan TATE PATIENT [facility] (WNR) MEDICARE ADVANTAGE [facility] (WNR) Jun 01, 2017 [id number] [phone] Krishan TATE PATIENT [facility] (WNR) MEDICARE ADVANTAGE [facility] (WNR) Jun 01, 2017 [id number] Krishan TATE PATIENT Selected Encounter This section includes the information on record at [place] for the Encounter. Date/Time Encounter Type Encounter Description Reason Pro vider Source Dec 21, 2023 11:40 AM Outpatient Encounter PRIMARY CARE/MEDICINE IHE Encounter Template Text not used by [place] Plan of Treatment: Future Appointments (+ 6 months) and Future Tests (+/- 45 days) The Plan of Treatment section includes future care activities for the patient from all [place] treatmentfacilities. This section includes future appointments and future orders which are active, pending or scheduled. Future Appointments This section includes appointments that were scheduled to occur 6 months from the date of the Encounter, up to a maximum of 20 appointments. The data comes from all [place] treatment facilities. Appointment Date/Time Appointment Type Appointme nt Facility Name Dec 22, 2023 11:10 AM AM[facility]ULATORY [facility] MEDICINE [facility] [place] [facility] Jan 06, 2024 10:40 AM AMBULATORY - MEDICINE [facility] [place] [facility] [place] Jan 12, 2024 02:30 PM AMBULATORY - MEDICINE [facility] [place] [facility] [place] Jan 25, 2024 10:30 AM AMBULATORY - MEDICINE [facility] [place] [facility] [place] Feb 05, 2024 11:00 AM AMBULATORY - MEDICINE [facility] [place] [facility] [place] Feb 16, 2024 11:30 AM AMBULATORY - MEDICINE [facility] [place] [facility] [place] Mar 22, 2024 10:30 AM AMBULATORY - MEDICINE [facility] [place] [facility] [place] Mar 22, 2024 10:31 AM AMBULATORY - MEDICINE [facility] [place] [facility] [place] Mar 24, 2024 02:30 PM AMBULATORY - MEDICINE [facility] [place] [facility] [place] Mar 29, 2024 10:30 AM AMBULATORY - NONE [facility] [place] [facility] [place] Apr 07, 2024 08:00 AM AMBULATORY - MEDICINE [facility] [place] [facility] [place] Apr 20, 2024 10:40 AM AMBULATORY - MEDICINE [facility] [place] [facility] [place] May 09, 2024 10:30 AM AMBULATORY - MEDICINE [facility] [place] [facility] [place] May 16, 2024 02:15 PM AMBULATORY - MEDICINE [facility] [place] [facility] [place] Jun 03, 2024 03:00 PM AMBULATORY - MEDICINE [place] [facility] [place] [facility] [place] Jun 16, 2024 02:30 PM AMBULATORY - MEDICINE [place] [facility] [place] [facility] [place] Jun 22, 2024 10:50 AM [facility] [place] [facility] [place] [facility] [place] Lab Results: +/- 30 days of the encounter This section includes the Chemistry and Hematology Lab Results on record with [place] for the patient. Radiology Reports and Pathology Reports are provided separately, in subsequent sections. Lab Results This section contains the Chemistry/Hematology Results that were resulted 30 days before or 30 daysafter the date of the Encounter. Date/Time Source Result Type Result - Unit Interpretation Reference Range Comment Jan 18, 2024 09:04 AM [facility] LIPID PANEL FASTING Specimen Type: SERUM No comment entered. Ordering Provider: STEVE ESPARZA Report Released Date/Time: Sep 28, 2023 11:20 AM Reporting [facility] [address] [facility] [address] Performing Lab: [facility] [address] [facility] [address] CHOLESTEROL 107 mg/dL TRIGLYCERIDE 225 mg/dL H 0-150 LDL calculated 33 mg/dL 0-129 CHOL/HDL 3.7 HDL CHOLESTEROL 29 mg/dL L 40-60 Jan 18, 2024 09:04 AM [facility] VITAMIN D (25-OH) Specimen Type: SERUM No comment entered. Ordering Provider: STEVE ESPARZA Report Released Date/Time: Sep 28, 2023 11:20 AM Reporting Lab: [facility] [place] [facility] [address] [facility] [address] Performing [facility]: [facility] [address] [address] VITAMIN D (25-OH) 40 ng/mL 20-50 Jan 18, 2024 09:04 AM [facility] BASIC METABOLIC PANEL (fasting) Specimen Type: SERUM No comment entered. Ordering Provider: STEVE ESPARZA Report Released Date/Time: Sep 28, 2023 11:20 AM Reporting Lab: [facility] [address] [facility] [address] Performing Lab: [address] [address] UREA NITROGEN 17 mg/dL 7-25 GLUCOSE 93 mg/dL 65-100 SODIUM 141 mmol/L 135-145 POTASSIUM 4.7 mmol/L 3.5-5.0 CHLORIDE 109 mmol/L 100-110 CO2 25 meq/L 20-30 CREATININE, Serum 0.86 mg/dL 0.50-1.40 eGFR(CKD-EPI 2020) 84 mL/min >60 Jan 18, 2024 09:04 AM [facility] LIVER FUNCTION Specimen Type: SERUM No comment entered. Ordering Provider: STEVE ESPARZA Report Released Date/Time: Sep 28, 2023 11:20 AM Reporting Lab: [address] [address] Performing Lab: [address] [address] PROTEIN,TOTAL 6.1 g/dL 6.0-8.3 ALBUMIN 3.9 g/dL 3.5-5.0 ALKALINE PHOSPHATASE 44 U/L 40-150 AST 14 U/L 5-34 ALT 14 U/L BILIRUBIN, TOTAL 0.4 mg/dL 0.2-1.2 Social History: Smoking Status (Most current) and Tobacco Use (All prior to encounter date) This section includes the most current, and the historical, smoking and tobacco- related health factors from the [place] facility where the Encounter took place. Current Smoking Status This section includes the most current smoking, or tobacco-related health factor, from the [place] facility where the Encounter took place. Date/Time Current Smoking Status Comment [facility] it Dec 21, 2023 11:40 AM [place]-TOBACCO QUIT 15 YRS OR MORE [facility] Tobacco Use History This section includes a history of the smoking, or tobacco-related health factors, that were collected on or before the date of the Encounter. The data comes from the [place] facility where the Encounter took place. Date/Time Smoking Status/Tobac co Use Comment Facility Dec 21, 2023 11:40 AM VA-TOBACCO QUIT 15 YRS OR MORE [place] [facility] [place] [place] [facility] [place] Oct 31, 2022 11:30 AM VA-TOBACCO FORMER USER [place] [facility] [facility] [place] Oct 31, 2022 11:30 AM VA-TOBACCO QUIT 15 YRS OR MORE [place] [facility] [place] [facility] [place] Sep 17, 2021 03:00 PM VA-TOBACCO FORMER USER [place] [facility] [place] [facility] Sep 17, 2021 03:00 PM VA-TOBACCO QUIT 15 YRS OR MORE [place] [facility] [place] [facility] [place] Aug 15, 2020 10:00 AM VA-TOBACCO FORMER USER [place] [facility] [facility] [place] Aug 15, 2020 10:00 AM VA-TOBACCO QUIT 15 YRS OR MORE [place] [facility] [place] [facility] [place] May 12, 2019 03:07 PM VA-TOBACCO FORMER USER [place] [facility] [place] [facility] May 12, 2019 03:07 PM VA-TOBACCO QUIT 15 YRS OR MORE [place] [facility] [place] [facility] May 31, 2018 01:08 PM VA-TOBACCO FORMER USER [place] [facility] [place] [facility] May 31, 2018 01:08 PM VA-TOBACCO QUIT 15 YRS OR MORE [place] [facility] [place] [facility] Feb 16, 2017 01:33 PM QUIT TOBACCO USE > 7 YEARS AGO quit 16 years ago [place] [facility] [place] [facility] Nov 13, 2015 03:48 PM QUIT TOBACCO USE > 7 YEARS AGO . [place] [facility] [place] [facility] May 12, 2013 12:49 PM QUIT TOBACCO USE > 7 YEARS AGO quit 2001 [place] [facility] [place] [facility] Advance Directives: All historical and current Section Date Range: From patient's date of to the date document was created. This section includes ALL of a patient's completed or amended [place] Advance and Rescinded Directives. The entries below indicate that a directive exists for the patient, but an actual copy is not included with this document. The data comes from all [place] facilities. Date Advance Directives Provider Source Nov 03, 2022 ADVANCE DIRECTIVE LENORA CARCAMO [facility] [place] [facility] Aug 16, 2020 ADVANCE DIRECTIVE EDMUND MORGAN [place] [facility] [place] [facility] Encounter Notes: All associated encounter notes This section contains the clinical notes associated to the Encounter. Date/Time Encounter Note(s) Provider Source Dec 21, 2023 11:40 AM PREVENTIVE MEDICIN E NURSING NOTE: LOCAL TITLE: CLINICAL REMINDERS/NURSING STANDARD TITLE: PREVENTIVE MEDICINE NURSING NOTE DATE OF NOTE: DEC 21, 2023@11:40 ENTRY DATE: DEC 21, 2023@11:40:57 AUTHOR: GATITO HOUSTON: URGENCY: STATUS: COMPLETED Homelessness/Food Insecurity Screen: In the past 2 months, have you been living in stable housing that you own, rent, or stay in as part of a household? Yes - Living in stable housing. Are you worried or concerned that in the next 2 months you may NOT have stable housing that you own, rent, or stay in as part of a household? No - Not worried about housing near future [facility] reports the following: Within the past 12 months, you worried whether your food would run out before you got money to buy more. Never true Within the past 12 months, the food you bought just didn't last and you didn't have money to get more. Never true Depression Screening: Perform PHQ-2 A PHQ-2 screen was performed. The score was 0 which is a negative screen for depression. Over the past two weeks, how often have you been bothered by the following problems? 1. Little interest or pleasure in doing things Not at all 2. Feeling down, depressed, or hopeless Not at all Tobacco Use Screening: The patient is a former tobacco user. The patient quit fifteen or more years ago. Alcohol Use Screen (AUDIT-C): Alcohol Screen: SCREEN FOR ALCOHOL (AUDIT-C) An alcohol screening test (AUDIT-C) was negative (score=1). 1. How often did you have a drink containing alcohol in the past year? Consider a drink to be a 12 ounce can or bottle of regular beer, 8 ounces of malt liquor, a 5 ounce glass of table wine, or a 1.5 ounce shot of liquor (like scotch, gin, or vodka). Monthly or less 2. How many drinks containing alcohol did you have on a typical day when you were drinking in the past year? Zero drinks 3. How often did you have six or more drinks on one occasion in the past year? Never /es/ GATITO HOUSTON LPN Signed: 12/21/2023 11:42 GATITO HOUSTON [facility]
--- OUTSIDE RECORDS SUMMARY | 2024-05-16 14:06 | XMS_ITS ---
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 Role Phone KIARA ESPARZA Primary Care [...] Name Patient's Relationship to Policy Colbert KYLIE [facility] (WNR) MEDICARE [facility] (WNR) Jun 01, 2017 [id number] [phone] Krishan TATE PATIENT [facility] (WNR) MEDICARE [facility] (WNR) Jun 01, 2017 [id number] Krishan TATE PATIENT [facility] (WNR) MEDICARE ADVANTAGE [facility] (WNR) Jun 01, 2017 [id number] Krishan TATE PATIENT Selected Encounter This section includes the information on record at [place] for the Encounter. Date/Time Encounter Type Encounter Description Reason Pro vider Source Feb 05, 2024 11:00 AM Outpatient Encounter RHEUMATOLOGY/ARTHRITI S IHE Encounter Template Text not used by [...] - MEDICINE [facility] [place] [facility] Mar 22, 2024 10:30 AM AMBULATORY - MEDICINE [place] [facility] [place] [facility] Mar 22, 2024 10:31 AM AMBULATORY - MEDICINE [place] [facility] [place] [facility] Mar 24, 2024 02:30 PM AMBULATORY - MEDICINE [place] [facility] [place] [facility] Mar 29, 2024 10:30 AM AMBULATORY - NONE [place] [facility] [place] [place] [facility] Apr 07, 2024 08:00 AM AMBULATORY - MEDICINE [place] [facility] [place] [facility] Apr 20, 2024 10:40 AM AMBULATORY - MEDICINE [place] [facility] [place] [facility] May 09, 2024 10:30 AM AMBULATORY - MEDICINE [place] [facility] [place] [facility] May 16, 2024 02:15 PM AMBULATORY - MEDICINE [place] [facility] [place] [facility] Jun 03, 2024 03:00 PM AMBULATORY - MEDICINE [place] [facility] [place] [facility] Jun 16, 2024 02:30 PM AMBULATORY - MEDICINE [place] [facility] [place] [facility] Jun 22, 2024 10:50 AM AMBULATORY - MEDICINE [place] [facility] [place] [facility] Lab Results: +/- 30 days of [...] Range Comment Jan 18, 2024 09:04 AM [facility] VITAMIN D (25-OH) Specimen Type: SERUM No comment entered. Ordering Provider: STEVE ESPARZA Report Released Date/Time: Sep 28, 2023 11:20 AM Reporting Lab: [address] [address] Performing Lab: [address] [address] VITAMIN D (25-OH) 40 ng/mL 20-50 Jan 18, 2024 09:04 AM [facility] LIPID PANEL FASTING Specimen Type: SERUM No comment entered. Ordering Provider: STEVE ESPARZA Report Released Date/Time: Sep 28, 2023 11:20 AM Reporting Lab: [address] [address] Performing Lab: [address] [address] CHOLESTEROL 107 mg/dL TRIGLYCERIDE 225 mg/dL H 0-150 LDL calculated 33 mg/dL 0-129 CHOL/HDL 3.7 HDL CHOLESTEROL 29 mg/dL L 40-60 Jan 18, 2024 09:04 AM [facility] BASIC METABOLIC PANEL (fasting) Specimen Type: SERUM No comment entered. Ordering Provider: STEVE ESPARZA Report Released Date/Time: Sep 28, 2023 11:20 AM Reporting Lab: [address] [address] Performing Lab: [address] [address] UREA NITROGEN 17 mg/dL 7-25 GLUCOSE 93 mg/dL 65-100 SODIUM 141 mmol/L 135-145 POTASSIUM 4.7 mmol/L 3.5-5.0 CHLORIDE 109 mmol/L 100-110 CO2 25 meq/L 20-30 CREATININE, Serum 0.86 mg/dL 0.50-1.40 eGFR(CKD-EPI 2020) 84 mL/min >60 Jan 18, 2024 09:04 AM [facility] LIVER FUNCTION Specimen Type: SERUM No comment entered. Ordering Provider: STEVE ESPARZA Report Released Date/Time: Sep 28, 2023 11:20 AM Reporting Lab: [facility] [address] [facility] [address] Performing Lab: [facility] [address] [facility] [address] PROTEIN,TOTAL 6.1 g/dL 6.0-8.3 ALBUMIN 3.9 g/dL [...] 68 132/78 18 95 5 212.2 38 [facility] Social History: Smoking Status (Most current) [...] took place. Date/Time Current Smoking Status Comment [facility] Dec 21, 2023 11:40 AM VA-TOBACCO FORMER USER [facility] Tobacco Use History This section includes a history of the smoking, or tobacco-related health factors, that were collected on or before the date of the Encounter. The data comes from the [place] facility where the Encounter took place. Date/Time Smoking Status/Tobac co Use Comment Facility Dec 21, 2023 11:40 AM VA-TOBACCO QUIT 15 YRS OR MORE [facility] Oct 31, 2022 11:30 AM VA-TOBACCO FORMER USER [facility] Oct 31, 2022 11:30 AM VA-TOBACCO QUIT 15 YRS OR MORE [place] [facility] [place] [facility] Sep 17, 2021 03:00 PM VA-TOBACCO FORMER USER [place] [facility] [place] [facility] Sep 17, 2021 03:00 PM VA-TOBACCO QUIT 15 YRS OR MORE [place] [facility] [place] [facility] Aug 15, 2020 10:00 AM VA-TOBACCO FORMER USER [place] [facility] [place] [facility] Aug 15, 2020 10:00 AM VA-TOBACCO QUIT 15 YRS OR MORE [place] [facility] [facility] May 12, 2019 03:07 PM VA-TOBACCO FORMER USER [place] [facility] [facility] May 12, 2019 03:07 PM VA-TOBACCO QUIT 15 YRS OR MORE [place] [facility] [facility] May 31, 2018 01:08 PM VA-TOBACCO FORMER USER [place] [facility] [facility] May 31, 2018 01:08 PM VA-TOBACCO QUIT 15 YRS OR MORE [place] [facility] [place] [facility] Feb 16, 2017 01:33 PM QUIT TOBACCO USE > 7 YEARS AGO quit 16 years ago [place] [facility] [place] [facility] Nov 13, 2015 03:48 PM QUIT TOBACCO USE > 7 YEARS AGO . [place] [facility] [facility] May 12, 2013 12:49 PM QUIT TOBACCO USE > 7 YEARS AGO quit 2002 [place] [facility] [place] [facility] Advance Directives: All historical and [...] LENORA CARCAMO [place] [facility] Aug 16[facility] 2020 ADVANCE DIRECTIVE EDMUND MORGAN [place] [facility]
--- OUTSIDE RECORDS SUMMARY | 2024-05-16 14:06 | XMS_ITS | Encounter Summary ---
Author Name [facility] [place] Address [address] [place] [address] Care Team Providers Care Firer [employer]el [employer]ocomotive Name Role Phone KIARA ESPARZA Primary Care [...] Colbert [facility] (WNR) MEDICARE ADVANTAGE [facility] (WNR) Jun 01, 2017 [id number] [phone] Krishan TATE PATIENT [facility] (WNR) MEDICARE ADVANTAGE [facility] (WNR) Jun 01, 2017 [id number] Krishan TATE PATIENT [facility] (WNR) MEDICARE ADVANTAGE [facility] (WNR) Jun 01, 2017 [id number] [phone] Krishan TATE PATIENT Selected Encounter This section includes the information on record at [place] for the Encounter. Date/Time Encounter Type Encounter Description Reason Provider Source Jan 12, 2024 02:30 PM TRIM NAIL(S) PODIATRY ICD-10-CM L60.3 Nail dystrophy DONAVAN FLORES Avis Encounter Template Text not used by [place] Assessments - Encounter Diagnoses This section includes the primary and secondary diagnoses documented for the Encounter. Date/Time Primary/Secondary Diagnosis Diagnosis Name Provider Source Jan 12, 2024 02:54 PM PRIMARY Nail dystrophy DONAVAN FLORES [facility] [place] [facility] Plan of Treatment: Future Appointments (+ 6 months) and Future Tests (+/- 45 days) The Plan of Treatment section includes future care activities for the patient from all [place] treatmentfacilities. This section includes future appointments and future orders which are active, pending or scheduled. Future Appointments This section includes appointments that were scheduled to occur 6 months from the date of the Encounter, up to a maximum of 20 appointments. The data comes from all [place] treatment facilities. Appointment Date/Time Appointment Type Appointme nt Facility Name Jan 25, 2024 10:30 AM AMBULATORY - MEDICINE [facility] [place] [facility] Feb 05, 2024 11:00 AM AMBULATORY - MEDICINE [facility] [place] [facility] Feb 16, 2024 11:30 AM AMBULATORY - MEDICINE [facility] [place] [facility] Mar 22, 2024 10:30 AM AMBULATORY - MEDICINE [facility] [place] [facility] Mar 22, 2024 10:31 AM AMBULATORY - MEDICINE [facility] [place] [facility] Mar 24, 2024 02:30 PM AMBULATORY - MEDICINE [facility] [place] [facility] Mar 29, 2024 10:30 AM AMBULATORY - NONE [facility] [place] [facility] Apr 07, 2024 08:00 AM AMBULATORY - MEDICINE [facility] [place] [facility] Apr 20, 2024 10:40 AM AMBULATORY - MEDICINE [facility] [place] [facility] May 09, 2024 10:30 AM AMBULATORY - MEDICINE [facility] [place] [facility] May 16, 2024 02:15 PM AMBULATORY - MEDICINE [facility] [place] [facility] Jun 03, 2024 03:00 PM AMBULATORY - MEDICINE [facility] [place] [facility] Jun 16, 2024 02:30 PM AMBULATORY - MEDICINE [facility] [place] [facility] Jun 22, 2024 10:50 AM [facility] Lab Results: +/- 30 days of the encounter This section includes the Chemistry and Hematology Lab Results on record with [place] for the patient. Radiology Reports and Pathology Reports are provided separately, in subsequent sections. Lab Results This section contains the Chemistry/Hematology Results that were resulted 30 days before or 30 daysafter the date of the Encounter. Date/Time Source Result Type Result - Unit Interpretation Reference Range Comment Jan 18, 2024 09:04 AM [facility] VITAMIN D (25-OH) Specimen Type: SERUM No comment entered. Ordering Provider: STEVE ESPARZA Report Released Date/Time: Sep 28, 2023 11:20 AM Reporting Lab: [facility] [address] [address] Performing Lab: [facility] [address] [id number] VITAMIN D (25-OH) 40 ng/mL 20-50 Jan 18, 2024 09:04 AM [facility] LIPID PANEL FASTING Specimen Type: SERUM No comment entered. Ordering Provider: STEVE ESPARZA Report Released Date/Time: Sep 28, 2023 11:20 AM Reporting Lab[facility] [address] [id number] Performing [facility] [address] [address] CHOLESTEROL 107 mg/dL TRIGLYCERIDE 225 mg/dL H 0-150 LDL calculated 33 mg/dL 0-129 CHOL/HDL 3.7 HDL CHOLESTEROL 29 mg/dL L 40-60 Jan 18, 2024 09:04 AM [facility] BASIC METABOLIC PANEL (fasting) Specimen Type: SERUM No comment entered. Ordering Provider: STEVE ESPARZA Report Released Date/Time: Sep 28, 2023 11:20 AM Reporting Lab: [address] [address] Performing Lab: [address] [address] UREA NITROGEN 17 mg/dL 7-25 GLUCOSE 93 mg/dL 65-100 SODIUM 141 mmol/L 135-145 POTASSIUM 4.7 mmol/L 3.5-5.0 CHLORIDE 109 mmol/L 100-110 CO2 25 meq/L 20-30 CREATININE, Serum 0.86 mg/dL 0.50-1.40 eGFR(CKD-EPI 2020) 84 mL/min >60 Jan 18, 2024 09:04 AM [facility] LIVER FUNCTION Specimen Type: SERUM No comment entered. Ordering Provider: STEVE ESPARZA Report Released Date/Time: Sep 28, 2023 11:20 AM Reporting Lab: [address] [address] Performing Lab: [address] [address] PROTEIN,TOTAL 6.1 g/dL 6.0-8.3 ALBUMIN 3.9 g/dL 3.5-5.0 ALKALINE PHOSPHATASE 44 U/L 40-150 AST 14 U/L 5-34 ALT 14 U/L BILIRUBIN, TOTAL 0.4 mg/dL 0.2-1.2 Social History: Smoking Status (Most current) and Tobacco Use (All prior to encounter date) This section includes the most current, and the historical, smoking and tobacco- related health factors from the [place] facility where the Encounter took place. Current Smoking Status This section includes the most current smoking, or tobacco-related health factor, from the [place] facility where the Encounter took place. Date/Time Current Smoking Status Comment [facility] it Dec 21, 2023 11:40 AM AR-TOBACCO QUIT 15 YRS OR MORE [facility] Tobacco Use History This section includes a history of the smoking, or tobacco-related health factors, that were collected on or before the date of the Encounter. The data comes from the [place] facility where the Encounter took place. Date/Time Smoking Status/Tobac co Use Comment Facility Dec 21, 2023 11:40 AM VA-TOBACCO QUIT 15 YRS OR MORE [facility] [place] [facility] Oct 31, 2022 11:30 AM VA-TOBACCO FORMER USER [facility] [place] [facility] Oct 31, 2022 11:30 AM VA-TOBACCO QUIT 15 YRS OR MORE [facility] [place] [facility] Sep 17, 2021 03:00 PM VA-TOBACCO FORMER USER [facility] [place] [facility] Sep 17, 2021 03:00 PM VA-TOBACCO QUIT 15 YRS OR MORE [facility] [place] [facility] Aug 15, 2020 10:00 AM VA-TOBACCO FORMER USER [facility] [place] [facility] Aug 15, 2020 10:00 AM VA-TOBACCO QUIT 15 YRS OR MORE [facility] [place] [facility] May 12, 2019 03:07 PM VA-TOBACCO FORMER USER [facility] [place] [facility] May 12, 2019 03:07 PM VA-TOBACCO QUIT 15 YRS OR MORE [facility] [place] [facility] May 31, 2018 01:08 PM VA-TOBACCO FORMER USER [facility] [place] [facility] May 31, 2018 01:08 PM VA-TOBACCO QUIT 15 YRS OR MORE [facility] [place] [facility] Feb 16, 2017 01:33 PM QUIT TOBACCO USE > 7 YEARS AGO quit 16 years ago [facility] [place] [facility] Nov 13, 2015 03:48 PM QUIT TOBACCO USE > 7 YEARS AGO . [facility] [place] [facility] May 12, 2013 12:49 PM QUIT TOBACCO USE > 7 YEARS AGO quit 2001 [facility] [place] [facility] Advance Directives: All historical and current Section Date Range: From patient's date of to the date document was created. This section includes ALL of a patient's completed or amended [place] Advance and Rescinded Directives. The entries below indicate that a directive exists for the patient, but an actual copy is not included with this document. The data comes from all [place] facilities. Date Advance Directives Provider Source Nov 03, 2022 ADVANCE DIRECTIVE LENORA CARCAMO [facility] [place] [facility] Aug 16, 2020 ADVANCE DIRECTIVE EDDIEEDMUND L [facility] Encounter Notes: All associated encounter notes This section contains the clinical notes associated to the Encounter. Date/Time Encounter Note(s) Provider Source Jan 12, 2024 02:52 PM NURSING OUTPATIENT NOTE: LOCAL TITLE: NURSING/SPECIALTY CLINIC NOTE STANDARD TITLE: NURSING OUTPATIENT NOTE DATE OF NOTE: JAN 12, 2024@14:52 ENTRY DATE: JAN 12, 2024@14:52:51 AUTHOR: DONAVAN FLORES COSIGNER: URGENCY: STATUS: COMPLETED seen [facility] for continued foot care. [facility] has a history of Thick nails and [...] Absent out of 10 sites Left Foot: [ ] Intact [ ] Absent out of [...] Subungual debri Hyperkeratosis [ ] Yes, Locations: [ x] No Open lesions/wounds: [ ] Yes, Locations: [ x] No Amputations: [ ] Yes, Locations: [x [...] Hyperkeratotic lesions were grinded down with eletric cork grinder and debrided without incidence. [x ]Patient education educated about proper foot care and encouraged to check feet daily for injuries and wounds [x ] Instructed to moisturize feet daily but not in-between toes Patient is to RTC in 2 months. /elizabeth/ DONAVAN FLORES LPN LICENSED PRACTICAL NURSE Signed: 01/12/2024 14:55 Receipt Acknowledged By: 01/12/2024 16:58 /es/ [facility] DPM PODIATRY ATTENDING DONAVAN FLORES [facility]
--- OUTSIDE RECORDS SUMMARY | 2024-05-16 14:07 | XMS_ITS | Encounter Summary ---
Author Name [facility] [facility] [place] [facility] [place] Address [address] [place] [address] Care Team Providers Care Lubrication Equipment Servicer Name Role Phone KIARA ESPARZA Primary Care [...] Policy Colbert's Name Patient's Relationship to Policy Oclbert KYLIE [facility] ([place]) MEDICARE ADVANTAGE [facility] ([place]NR) Jun 01, 2017 [id number] [phone] Krishan TATE PATIENT [facility] ([place]NR) MEDICARE ADVANTAGE [facility] ([place]NR) Jun 01, 2017 [id number] Krishan TATE PATIENT [facility] ([place]) MEDICARE ADVANTAGE [facility] ([place]) Jun 01, 2017 [id number] Krishan TATE PATIENT Selected Encounter This section includes the information on record at [place] for the Encounter. Date/Time Encounter Type Encounter Description Reason Provider Source Feb 16, 2024 11:30 AM INTRM OPH EXAM EST PATIENT OPTOMETRY ICD-10-CM L71.8 Other rosacea RICARDO FREGOSO Avis Encounter Template Text not used by [place] Assessments - Encounter Diagnoses This section includes the primary and secondary diagnoses documented for the Encounter. Date/Time Primary/Secondary Diagnosis Diagnosis Name Provider Source Feb 17, 2024 10:38 AM PRIMARY Other rosacea RICARDO FREGOSO Avis [facility] [place] [facility] Feb 17, 2024 10:38 AM SECONDARY Dry eye syndrome of bilateral lacrimal glands ZENOBIARICARDO [facility] [place] [facility] Feb 17, 2024 10:38 AM SECONDARY Presence of intraocular lens ZENOBIARICARDO [facility] [place] [facility] Feb 17, 2024 10:38 AM SECONDARY Primary open-angle glaucoma, left eye, severe stage ZENOBIARICARDO BOWSER [facility] [place] [facility] Feb 17, 2024 10:38 AM SECONDARY Primary open-angle glaucoma, right eye, severe stage ZENOBIARICARDO [facility] [place] [facility] Feb 17, 2024 10:38 AM SECONDARY Rhinophyma ZENOBAIRICARDO E [facility] [place] [facility] Plan of Treatment: Future Appointments (+ 6 months) and Future Tests (+/- 45 days) The Plan of Treatment section includes future care activities for the patient from all [place] treatmentfacilities. This section includes future appointments and future orders which are active, pending or scheduled. Future Appointments This section includes appointments that were scheduled to occur 6 months from the date of the Encounter, up to a maximum of 20 appointments. The data comes from all [place] treatment facilities. Appointment Date/Time Appointment Type Appointme nt Facility Name Mar 22, 2024 10:30 AM AMBULATORY - MEDICINE [facility] [place] [facility] Mar 22, 2024 10:31 AM AMBULATORY - [facility]ICINE [facility] [place] [facility] Mar 24, 2024 02:30 PM AMBULATORY - MEDICINE [facility] [place] [facility] Mar 29, 2024 10:30 AM AMBULATORY - NONE [facility] [place] [facility] Apr 07, 2024 08:00 AM AMBULATORY - [facility]ICINE [facility] [place] [facility] Apr 20, 2024 10:40 AM AMBULATORY - [facility]ICINE [facility] [place] [facility] May 09, 2024 10:30 AM AMBULATORY - MEDICINE [facility] [place] [facility] May 16, 2024 02:15 PM AMBULATORY - MEDICINE [facility] [place] [facility] Jun 03, 2024 03:00 PM AMBULATORY - [facility]ICINE [facility] [place] [facility] Jun 16, 2024 02:30 PM AMBULATORY [place] [facility]ICINE [facility] [place] [facility] Jun 22, 2024 10:50 AM AMBULATORY - [facility]ICINE [facility] [place] [facility] Aug 05, 2024 11:00 AM [facility] - [facility] Active, Pending, and Scheduled Orders This section includes a listing of several types of active, pending, and scheduled orders, including clinic medications orders, diagnostic test orders, procedure orders and consult orders; where the start date of the order is 45 days before the date of the Encounter or 45 days after the date of theEncounter. The data comes from all [place] treatment facilities. Test Date/Time Test Type Test Details Facility Name Mar 31, 2024 08:02 AM Consult Order COMMUNITY CARE-NEUROLOGY Cons Decorative Cutting Machine Tender's Choice [facility] Lab Results: +/- 30 days of the encounter This section includes the Chemistry and Hematology Lab Results on record with [place] for the patient. Radiology Reports and Pathology Reports are provided separately, in subsequent sections. Lab Results This section contains the Chemistry/Hematology Results that were resulted 30 days before or 30 daysafter the date of the Encounter. Date/Time Source Result Type Result - Unit Interpretation Reference Range Comment Jan 18, 2024 09:04 AM [facility] VITAMIN D (25-OH) Specimen Type: SERUM No comment entered. Ordering Provider: STEVE ESPARZA Report Released Date/Time: Sep 28, 2023 11:20 AM Reporting [facility] [address] [address] Performing Lab: [facility] [address] [facility] [address] VITAMIN D (25-OH) 40 ng/mL 20-50 Jan 18, 2024 09:04 AM [facility] LIPID PANEL FASTING Specimen Type: SERUM No comment entered. Ordering Provider: STEVE ESPARZA Report Released Date/Time: Sep 28, 2023 11:20 AM Reporting [facility] [address] [facility] [address] Performing [facility]: [facility] [address] [facility] [address] CHOLESTEROL 107 mg/dL TRIGLYCERIDE 225 mg/dL H 0-150 LDL calculated 33 mg/dL 0-129 CHOL/HDL 3.7 HDL CHOLESTEROL 29 mg/dL L 40-60 Jan 18, 2024 09:04 AM [facility] BASIC METABOLIC PANEL (fasting) Specimen Type: SERUM No comment entered. Ordering Provider: STEVE ESPARZA Report Released Date/Time: Sep 28, 2023 11:20 AM Reporting Lab: [facility] [address] [facility] [address] Performing Lab: [facility] [address] [facility] [address] UREA NITROGEN 17 mg/dL 7-25 GLUCOSE 93 mg/dL 65-100 SODIUM 141 mmol/L 135-145 POTASSIUM 4.7 mmol/L 3.5-5.0 CHLORIDE 109 mmol/L 100-110 CO2 25 meq/L 20-30 CREATININE, Serum 0.86 mg/dL 0.50-1.40 eGFR(CKD-EPI 2020) 84 mL/min >60 Jan 18, 2024 09:04 AM [facility] LIVER FUNCTION Specimen Type: SERUM No comment entered. Ordering Provider: STEVE ESPARZA Report Released Date/Time: Sep 28, 2023 11:20 AM Reporting Lab: [address] [address] Performing Lab: [facility] [address] [address] PROTEIN,TOTAL 6.1 g/dL 6.0-8.3 ALBUMIN 3.9 g/dL 3.5-5.0 ALKALINE PHOSPHATASE 44 U/L 40-150 AST 14 U/L 5-34 ALT 14 U/L BILIRUBIN, TOTAL 0.4 mg/dL 0.2-1.2 Social History: Smoking Status (Most current) and Tobacco Use (All prior to encounter date) This section includes the most current, and the historical, smoking and tobacco- related health factors from the [place] facility where the Encounter took place. Current Smoking Status This section includes the most current smoking, or tobacco-related health factor, from the [place] facility where the Encounter took place. Date/Time Current Smoking Status Comment [facility] Dec 21, 2023 11:40 AM VA-TOBACCO QUIT 15 YRS OR MORE [facility] [place] [facility] Tobacco Use History This section includes a history of the smoking, or tobacco-related health factors, that were collected on or before the date of the Encounter. The data comes from the [place] facility where the Encounter took place. Date/Time Smoking Status/Tobac co Use Comment [facility] Dec 21, 2023 11:40 AM VA-TOBACCO QUIT 15 YRS OR MORE [facility] [place] [facility] Oct 31, 2022 11:30 AM VA-TOBACCO FORMER USER [facility] [place] [facility] Oct 31, 2022 11:30 AM VA-TOBACCO QUIT 15 YRS OR MORE [facility] [place] [facility] Sep 17, 2021 03:00 PM VA-TOBACCO FORMER USER [facility] [place] [facility] Sep 17, 2021 03:00 PM VA-TOBACCO QUIT 15 YRS OR MORE [facility] [place] [facility] Aug 15, 2020 10:00 AM VA-TOBACCO FORMER USER [facility] [place] [facility] Aug 15, 2020 10:00 AM VA-TOBACCO QUIT 15 YRS OR MORE [facility] [place] [facility] May 12, 2019 03:07 PM VA-TOBACCO FORMER USER [facility] [place] [facility] May 12, 2019 03:07 PM VA-TOBACCO QUIT 15 YRS OR MORE [facility] [place] [facility] May 31, 2018 01:08 PM [facility]-TOBACCO [facility] May 31, 2018 01:08 PM VA-TOBACCO QUIT 15 YRS OR MORE [facility] Feb 16, 2017 01:33 PM QUIT TOBACCO USE > 7 YEARS AGO quit 16 [facility] ago [facility] Nov 13, 2015 03:48 PM QUIT TOBACCO USE > 7 YEARS AGO . [facility] May 12, 2013 12:49 PM QUIT TOBACCO USE > 7 YEARS AGO quit 2001 [facility] Advance Directives: All historical and current Section Date Range: From patient's date of to the date document was created. This section includes ALL of a patient's completed or amended [place] Advance and Rescinded Directives. The entries below indicate that a directive exists for the patient, but an actual copy is not included with this document. The data comes from all [place] facilities. Date Advance Directives Provider Source Nov 03, 2022 ADVANCE DIRECTIVE LENORA CARCAMO [facility] Aug 16, 2020 ADVANCE DIRECTIVE EDMUND MORGAN [facility] Encounter Notes: All associated encounter notes This section contains the clinical notes associated to the Encounter. Date/Time Encounter Note(s) Provider Source Feb 16, 2024 11:31 AM OPTOMETRY NOTE: LOCAL TITLE: OPTOMETRY NOTE STANDARD TITLE: OPTOMETRY NOTE DATE OF NOTE: FEB 16, 2024@11:31 ENTRY DATE: FEB 16, 2024@11:31:45 AUTHOR: GERARD FREGOSO EXP COSIGNER: URGENCY: STATUS: COMPLETED Active problems - Computerized Problem List is the source for the followin. Hematuria (SCT 08926797) 2. Inflamed Seborrheic Keratosis (SCT 93905111) 3. Glaucoma 4. Chronic gastric ulcer 5. Obesity 6. Primary generalized osteoarthritis 7. Obstructive sleep apnea syndrome 8. Coronary arteriosclerosis 9. Benign essential hypertension (SNOMED CT 6548871) 10. 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 BPH W/O URINARY OBSTRUCT Active Outpatient Medications (including Supplies): Active Outpatient Medications Status 1) AMMONIUM LACTATE 12% LOTION APPLY MODERATE AMOUNT ACTIVE TOPICALLY ONCE DAILY FOR DRY IRRITATED SKIN 2) CAPSAICIN 0.025% CREAM APPLY A THIN LAYER TOPICALLY ACTIVE TWICE DAILY NEEDED FOR LOCALIZED PAIN FOR KNEES 3) CARBOXYMETHYLCELLULOSE NA 0.5% OPH SOLN INSTILL 1 ACTIVE DROP INTO EACH EYE FOUR TIMES DAILY NEEDED FOR DRYNESS 4) FERROUS SULFATE 325MG TAB TAKE ONE TABLET BY MOUTH ACTIVE ONCE DAILY TO SUPPLEMENT IRON 5) HYLAN G-F20 48MG/6ML INJ SYRINGE 6ML INJECT 48MG/6ML ACTIVE INTRA-ARTICULAR NEEDED FOR OSTEOARTHRITIS OF THE KNEE DIRECTED BY PROVIDER 6) LISINOPRIL 10MG TAB [...] (S) EVERY MORNING 30 MINUTES BEFORE BREAKFAST 10) ROSUVASTATIN CA 40MG TAB TAKE ONE TABLET BY MOUTH ACTIVE (S) ONCE DAILY FOR CHOLESTEROL 11) TAMSULOSIN HCL [...] old MALE is seen today for follow-up care Medical, eye, personal, and social history are all reviewed and is contributory to today's visit for 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 In addition to bilateral cataract surgery is also undergone bilateral trabeculectomy's in the past. His last exam here with visual imaging was on July 30, 2023. His current ocular regimen consists of latanoprost at bedtime and timolol daily each eye as well as lubricating drops during the day and lubricating ointment at bedtime. Chief Complaint: May need refills on lubricating drops and timolol Vision: With 20/40+ right eye with eccentric view 20/30+/-5 left eye Without Correction Pupils, EOMS, confrontation malik are all done and show round somewhat miotic minimally reactive pupils with full extraocular motility. 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 Conj: Mild chronic injection each eye elevated, avascular blebs superior each eye Cornea: Clear centrally with reduced TBUT and trace SPK each eye AC: Deep and quiet each eye Iris: Normal each eye Lens: PCIOL each eye Vit: Clear each eye Fundus exam: Dilated: Non dilated:xxx C/D: Marked cupping and disc pallor each eye no splinter hemorrhage superior rim loss each eye consistent with an inferior field defects Macula: Limited view but grossly normal each eye A/V: 1/3 each eye Vessels: Normal each eye Periphery: Not assessed each eye Impression: 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 Renew lubricating drops now for mail out. Stressed importance of consistency with use of frequent lubrication along with lid wipes daily and Gómez mask for facial and ocular rosacea with bilateral dry eye disease. Bilateral pseudophakia looks perfect. Bilateral severe stage open-angle glaucoma with stable intraocular pressure at low teens on current glaucoma regimen of latanoprost at bedtime and timolol daily each eye after bilateral trabeculectomy's. Continue glaucoma medications as indicated and plan for follow-up in 6 months for comprehensive exam with dilation with repeat field testing and disc photos done. Return sooner if need be. Plan: Patient education as noted above reviewed exam findings now. Renew lubricating drops and timolol for mail out. Stressed importance of consistency with use of lubricating drops during the day, lubricating ointment at bedtime, lid wipes daily as well as Gómez mask daily. Return in 6 months for comprehensive examination with dilation as well as visual field testing and disc photos then. Return sooner if need be. Education: Glaucoma: Patient was educated regarding glaucoma/glaucoma [...] ability to participate in testing. Return to Clinic 6 months for exam with imaging. Ophthalmic medication reconciliation: Latanoprost at bedtime each eye Timolol 0.5% daily each eye Lubricating drops 3-4 times a day each eye Lubricating gel at bedtime each eye Medication Reconciliation: Outpatient: Has the patient been taking medications as documented in the EMLR? YES: The patient has been taking medications as documented in the EMLR. Essential Medication List for Review used to complete this medication reconciliation. INCLUDED IN THIS LIST: Alphabetical list of active outpatient prescriptions [facility] from this [facility] (local) and dispensed from another [place] or [facility] facility (remote) as well as inpatient orders [...] whether with a VA or non-VA provider. JLV Link Data on this list may not be complete. Please check JLV. Allergies/ADRs (Tool #5) FACILITY ALLERGY/ADR -------- No Remote Allergy/ADR Data available for this patient [facility] [facility] [place] [facility] [place] [facility] [place] [facility] PENICILLIN Med Recon NoGlossary (Tool #1) INCLUDED IN THIS LIST: Alphabetical list of active outpatient prescriptions dispensed from this [facility] (local) and dispensed from another [place] or [facility] facility (remote) as well as inpatient orders (local pending and active), local clinic medications, locally documented non-VA medications, and local prescriptions that have or been discontinued in the past 90 days. Non-VA Meds Last Documented On: Jun 10, 2023 NOTE The display of VA prescriptions dispensed from another [place] or [facility] facility (remote) is limited to active outpatient prescription entries matched to National Drug File at the originating site and may not include some items such as investigational drugs, compounds, etc. NOT INCLUDED IN THIS LIST: Medications self-entered by the patient into personal health records (i.e. [employer] vascular solution) are NOT included in this list. Non-VA medications documented outside this [place], remote inpatient orders (regardless of status) and [...] ONCE DAILY FOR DRY IRRITATED SKIN Rx# [id number] Last Released: 01/28/24 Qty/Days Supply: 240/ Rx Expiration Date: 01/25/25 Refills Remainin Indication: FOR DRY SKIN Non-VA ASPIRIN 81MG EC TAB TAKE ONE TABLET BY MOUTH DAILY OUTPT CAPSAICIN 0.025% CREAM (Status = Discontinued) APPLY A THIN LAYER TOPICALLY TWICE DAILY NEEDED FOR KNEES Rx# [id number] Last Released: 01/25/24 Qty/Days Supply: 60/30 Rx Expiration Date: 11/02/24 Refills Remainin Indication: FOR LOCALIZED PAIN OUTPT CAPSAICIN 0.025% CREAM (Status = Active) APPLY A THIN LAYER TOPICALLY TWICE DAILY NEEDED FOR LOCALIZED PAIN FOR KNEES Rx# [id number] Last Released: 02/16/24 Qty/Days Supply: 6030 Rx Expiration Date: 01/25/25 Refills Remainin Indication: FOR LOCALIZED PAIN OUTPT CARBOXYMETHYLCELLULOSE NA 0.5% OPH SOLN (Status = Active) INSTILL 1 DROP INTO EACH EYE FOUR TIMES DAILY NEEDED FOR DRYNESS Rx# [id number] Last Released: 12/07/23 Qty/Days Supply: 45 Rx Expiration Date: 06/02/24 Refills Remainin Indication: FOR DRY EYE OUTPT DICLOFENAC NA 1% TOP GEL (Status = ) APPLY 2 GRAMS TOPICALLY FOUR TIMES A DAY FOR OSTEOARTHRITIS - USE DOSING CARD PROVIDED IN BOX APPLY TO HANDS Rx# [id number] Last Released: 01/21/24 Qty/Days Supply: 100/30 Rx Expiration Date: 01/23/24 Refills Remainin Indication: FOR OSTEOARTHRITIS OUTPT EYELID CLEANSER,EYE SCRUB PAD (Status = Active) USE 1 PAD TOPICALLY ONCE DAILY BLEPHARITIS Rx# [id number] Last Released: Qty/Days Supply: 90 Rx Expiration Date: 02/16/25 Refills Remainin Indication: BLEPHARITIS OUTPT FERROUS SULFATE 325MG TAB (Status = Active) TAKE ONE TABLET BY MOUTH ONCE DAILY TO SUPPLEMENT IRON Rx# [id number] Last Released: 11/28/23 Qty/Days Supply: 100/ Rx Expiration Date: 11/26/24 Refills Remainin OUTPT HYLAN G-F20 48MG/6ML INJ SYRINGE 6ML (Status = ) INJECT 48MG/6ML INTRA-ARTICULAR NEEDED DIRECTED BY PROVIDER Rx# [id number] Last Released: 07/17/23 Qty/Days Supply: Rx Expiration Date: 01/16/24 Refills Remainin OUTPT HYLAN G-F20 48MG/6ML INJ SYRINGE 6ML (Status = Active) INJECT 48MG/6ML INTRA-ARTICULAR NEEDED FOR OSTEOARTHRITIS OF THE KNEE DIRECTED BY PROVIDER Rx# [id number] Last Released: 02/02/24 Qty/Days Supply: Rx Expiration Date: 02/02/25 Refills Remainin Indication: FOR OSTEOARTHRITIS OF THE KNEE OUTPT HYPROMELLOSE 0.3% OPH GEL (Status = Active) APPLY 1 TO 2 DROPS INTO EACH EYE AT BEDTIME FOR DRY EYE Rx# [id number] Last Released: Qt/Days Supply: 40 Rx Expiration Date: 02/16/25 Refills Remainin Indication: FOR DRY EYE OUTPT LATANOPROST 0.005% OPH SOLN (Status = Active) INSTILL 1 DROP INTO EACH EYE AT BEDTIME FOR INCREASED PRESSURE IN THE EYE Rx# [id number] Last Released: Qt/Days Supply: 7. Rx Expiration Date: 02/16/25 Refills Remainin Indication: FOR INCREASED PRESSURE IN THE EYE OUTPT LISINOPRIL 10MG TAB (Status = Active) TAKE ONE TABLET BY MOUTH ONCE DAILY TO CONTROL BLOOD PRESSURE Rx# [id number] Last Released: 01/01/24 Qty/Days Supply: Rx Expiration Date: 03/02/24 Refills Remainin OUTPT LUBRICATING (PF) OPH OINT (Status = Active) APPLY THIN RIBBON INTO EACH EYE AT BEDTIME Rx# [id number] Last Released: 12/31/23 Qty/Days Supply: Rx Expiration Date: 03/04/24 Refills Remainin OUTPT METOPROLOL TARTRATE 50MG TAB (Status = Discontinued) TAKE ONE TABLET BY MOUTH TWICE DAILY FOR BLOOD PRESSURE/HEART Rx# [id number] Last Released: 11/10/23 Qty/Days Supply: Rx Expiration Date: 02/01/24 Refills Remainin OUTPT METOPROLOL TARTRATE 50MG TAB (Status = Active) TAKE ONE TABLET BY MOUTH TWICE DAILY FOR BLOOD PRESSURE/HEART Rx# [id number] Last Released: 01/27/24 Qty/Days Supply: Rx Expiration Date: 01/25/25 Refills Remainin Non-VA MULTIVITAMIN/MINERALS CAP/TAB TAKE ONE TABLET BY MOUTH EVERY MORNING OUTPT OMEPRAZOLE 20MG EC CAP (Status = Active/Suspended) TAKE ONE CAPSULE BY MOUTH EVERY MORNING 30 MINUTES BEFORE BREAKFAST Rx# [id number] Last Released: 01/27/24 Qty/Days Supply: Rx Expiration Date: 09/28/24 Refills Remainin OUTPT ROSUVASTATIN CA 40MG TAB (Status = Active/Suspended) TAKE ONE TABLET BY MOUTH ONCE DAILY FOR CHOLESTEROL Rx# [id number] Last Released: 01/25/24 Qty/Days Supply: Rx Expiration Date: 09/28/24 Refills Remainin Indication: FOR HIGH CHOLESTEROL OUTPT TAMSULOSIN HCL 0.4MG CAP (Status = Active) TAKE ONE CAPSULE BY MOUTH ONCE DAILY FOR ENLARGED PROSTATE Rx# [id number] Last Released: 12/07/23 Qty/Days Supply: Rx Expiration Date: 06/02/24 Refills Remainin Indication: FOR ENLARGED PROSTATE OUTPT TIMOLOL MALEATE 0.5% OPH SOLN (Status = Active) INSTILL 1 DROP INTO EACH EYE EVERY MORNING Rx# [id number] Last Released: 02/09/24 Qty/Days Supply: Rx Expiration Date: 03/04/24 Refills Remainin SUPPLIES Declines printed copy of medication list now. /elizabeth/ Gerard Fregoso OD CHIEF OF OPTOMETRY Signed: 02/17/2024 10:38 GERARD FREGOSO [facility] [place] [facility]
--- OUTSIDE RECORDS SUMMARY | 2024-05-16 14:07 | XMS_ITS ---
Author Name [facility] [place] [facility] [place] Address [address] [place] [address] Care Team Providers Care Sales Operations Lead Name Role Phone KIARA CASH Primary Care [...] Name Patient's Relationship to Policy Colbert [facility] (WNR) MEDICARE ADVANTAGE [facility] (WNR) Jun 01, 2017 [id number] Krishan TATE PATIENT [facility] (WNR) MEDICARE ADVANTAGE [facility] (WNR) Jun 01, 2017 [id number] [phone] Krishan TATE PATIENT [facility] (WNR) MEDICARE ADVANTAGE [facility] (WNR) Jun 01, 2017 [id number] Krishan TATE PATIENT Selected Encounter This section includes the information on record at [place] for the Encounter. Date/Time Encounter Type Encounter Description Reason Provider Source Mar 22, 2024 10:31 AM OFFICE O/P EST LOW 20 MIN PRIMARY CARE/MEDICINE ICD-10-CM K59.00 Constipation, unspecified LILIYA CHOWDHURY [facility] Encounter Template Text not used by [place] Assessments - Encounter Diagnoses This section includes the primary and secondary diagnoses documented for the Encounter. Date/Time Primary/Secondary Diagnosis Diagnosis Name Provider Source Mar 22, 2024 11:49 AM PRIMARY Constipation, unspecified LILIYA CHOWDHURY [place] [facility] [place] [facility] Plan of Treatment: Future Appointments (+ 6 months) and Future Tests (+/- 45 days) The Plan of Treatment section includes future care activities for the patient from all [place] treatmentfacilities. This section includes future appointments and future orders which are active, pending or scheduled. Future Appointments This section includes appointments that were scheduled to occur 6 months from the date of the Encounter, up to a maximum of 20 appointments. The data comes from all [place] treatment facilities. Appointment Date/Time Appointment Type Appointme nt Facility Name Mar 24, 2024 02:30 PM AMBULATORY - MEDICINE [place] [facility] [place] [facility] Mar 29, 2024 10:30 AM AMBULATORY - NONE [place] [facility] [place] [facility] Apr 07, 2024 08:00 AM AMBULATORY - MEDICINE [facility] [place] [facility] Apr 20, 2024 10:40 AM AMBULATORY - MEDICINE [place] [facility] [place] [facility] May 09, 2024 10:30 AM AMBULATORY - MEDICINE [facility] [place] [facility] May 16, 2024 02:15 PM AMBULATORY - MEDICINE [facility] [place] [facility] Jun 03, 2024 03:00 PM AMBULATORY - MEDICINE [facility] [place] [facility] Jun 16, 2024 02:30 PM AMBULATORY - MEDICINE [facility] [place] [facility] Jun 22, 2024 10:50 AM AMBULATORY - MEDICINE [facility] [place] [facility] Aug 05, 2024 11:00 AM AMBULATORY - MEDICINE [facility] [place] [facility] Aug 19, 2024 11:00 AM AMBULATORY - MEDICINE [facility] [place] [facility] Sep 13, 2024 11:00 AM AMBULATORY - MEDICINE [facility] [place] [facility] Sep 13, 2024 11:30 AM AMBULATORY - MEDICINE [facility] NTRL TRN [facility] Active, Pending, and Scheduled Orders This section includes a listing of several types of active, pending, and scheduled orders, including clinic medications orders, diagnostic test orders, procedure orders and consult orders; where the start date of the order is 45 days before the date of the Encounter or 45 days after the date of theEncounter. The data comes from all [place] treatment facilities. Test Date/Time Test Type Test Details Facility Name Mar 31, 2024 08:02 AM Consult Order COMMUNITY CARE-NEUROLOGY Cons Drain Technician's Choice [facility] Vital Signs: All taken on the encounter date This section contains inpatient and outpatient Vital Signs collected on the date of the Encounter. Date/Time Temperature Pulse Blood Pressure Respiratory Rate SP02 Pain Height Weight Body Mass Index Source Mar 22, 2024 10:28 AM 97.6 58 159/66 18 94 1 [facility] [place] Social History: Smoking Status (Most current) and Tobacco Use (All prior to encounter date) This section includes the most current, and the historical, smoking and tobacco- related health factors from the [place] facility where the Encounter took place. Current Smoking Status This section includes the most current smoking, or tobacco-related health factor, from the [place] facility where the Encounter took place. Date/Time Current Smoking Status Comment [facility] sohan Dec 21, 2023 11:40 AM VA-TOBACCO FORMER USER [facility] Tobacco Use History This section includes a history of the smoking, or tobacco-related health factors, that were collected on or before the date of the Encounter. The data comes from the [place] facility where the Encounter took place. Date/Time Smoking Status/Tobac co Use Comment Facility Dec 21, 2023 11:40 AM [place]-TOBACCO QUIT 15 YRS OR MORE [place] [facility] [place] [facility] Oct 31, 2022 11:30 AM VA-TOBACCO FORMER USER [facility] Oct 31, 2022 11:30 AM VA-TOBACCO QUIT 15 YRS OR MORE [facility] [place] [facility] Sep 17, 2021 03:00 PM VA-TOBACCO FORMER USER [place] [facility] [place] [facility] Sep 17, 2021 03:00 PM VA-TOBACCO QUIT 15 YRS OR MORE [place] [facility] [place] [facility] Aug 15, 2020 10:00 AM VA-TOBACCO FORMER USER [place] [facility] [place] [facility] Aug 15, 2020 10:00 AM VA-TOBACCO QUIT 15 YRS OR MORE [place] [facility] [place] [facility] May 12, 2019 03:07 PM VA-TOBACCO FORMER USER [place] [facility] [place] [facility] May 12, 2019 03:07 PM VA-TOBACCO QUIT 15 YRS OR MORE [place] [facility] [place] [facility] May 31, 2018 01:08 PM VA-TOBACCO FORMER USER [place] [facility] [place] [facility] May 31, 2018 01:08 PM VA-TOBACCO QUIT 15 YRS OR MORE [place] [facility] [place] [facility] Feb 16, 2017 01:33 PM QUIT TOBACCO USE > 7 YEARS AGO quit 16 years ago [place] [facility] [place] [facility] Nov 13, 2015 03:48 PM QUIT TOBACCO USE > 7 YEARS AGO . [place] [facility] [place] [facility] May 12, 2013 12:49 PM QUIT TOBACCO USE > 7 YEARS AGO quit 2001 [place] [facility] Advance Directives: All historical and current Section Date Range: From patient's date of to the date document was created. This section includes ALL of a patient's completed or amended [place] Advance and Rescinded Directives. The entries below indicate that a directive exists for the patient, but an actual copy is not included with this document. The data comes from all [place] facilities. Date Advance Directives Provider Source Nov 03, 2022 ADVANCE DIRECTIVE LENORA CARCAMO [facility] [place] [facility] Aug 16, 2020 ADVANCE DIRECTIVE EDMUND MORGAN [place] [facility] Radiology Reports: +/- 30 days of the encounter Radiology Reports For cases when an order for radiology services may have been completed prior to the date of the Encounter, the report list includes the Radiology Reports that were completed up to 30 days before dateof the Encounter. For cases when an order for radiology services may have been completed after the date of the Encounter, the report list also includes the Radiology Reports that were completed up to30 days after date of the Encounter. The data comes from all [place] treatment facilities. Date/Time Radiology Report Provider Source Mar 29, 2024 10:17 AM ABDOMINAL ULTRASOUND: CHAR TATE EDWAR [id number] -[id number] M Exm Date: MAR 29, 2024@10:17 Req Phys: KIARA CASH Loc: CWM/NO/SICK CALL PA (Req'g Loc Img Loc: ULTRASOUND Service: Unknown [place] [facility] [place] [address] (Case [id number] COMPLETE) ULTRASOUND ABDOMEN LIMITED (US Detailed) CPT:55385 Reason for Study: Liver Clinical History: There is some prominence of the hepatic shadow with a suggested hepatic granuloma on plain film today. Report Status: Verified Date Reported: MAR 29, 2024 Date Verified: MAR 29, 2024 General Operations Manager E-Sig: Report: ULTRASOUND ABDOMEN LIMITED [PRINTSET] HISTORY: Liver COMPARISON: 03/22/2024 abdomen x-ray TECHNIQUE: Ultrasound of the right upper abdomen was performed at the local [place] facility. 34 images were received by the [place] [facility] ([facility]P) for interpretation. FINDINGS: Liver: The suggested calcified granuloma on recent chest x-ray is not apparent on sonographic assessment. Size: Borderline enlarged. Length (right hepatic lobe): 18 cm. Echogenicity: Normal. Echotexture: Normal. Surface: Smooth. Lesions: 1 cm simple cyst right hepatic lobe along the gallbladder fossa. Main Portal Vein: Patent. Gallbladder: Distention: Normal/physiologic. Calculi: Present. Sludge: Absent. Wall Thickness: Normal. Pericholecystic Fluid: Absent. Sonographic Greco Sign: Negative. Bile Ducts: Intrahepatic: Normal caliber. Extrahepatic: Normal caliber. Common Bile Duct: 3.2 mm diameter. Pancreas: No ductal dilation in the visualized pancreatic head and body. The pancreatic tail is obscured by overlying bowel gas. Ascites: Absent. Impression: 1. The liver is borderline enlarged measuring up to approximately 18 cm. The suggested calcified granuloma on recent chest x-ray is not apparent on sonographic assessment. However, note that report from 03/24/2023 CT thorax describes calcified hepatic granuloma. 2. Cholelithiasis without findings to suggest acute cholecystitis. READING PHYSICIAN: Cintia Campbell M.D. -[id number] 03/29/2024 14:38 EDT [facility] [phone] (For Medical Practitioner Use Only) Attention Patients / Veterans: If you have questions or concerns about these test results, please contact your ordering provider or primary care team. Primary Diagnostic Code: NO ALERT REQUIRED Primary Interpreting Staff: RADIOLOGY,OUTSIDE SERVICE, Staff Physician / RADIOLOGY,OUTSIDE SERVICE [facility] Mar 22, 2024 10:50 AM ABDOMEN (2 VIEWS): CHAR TATE [facility] [id number] -[id number] M Ex Date: MAR 22, 2024@10:50 Req Phys: LILIYA CHOWDHURY Loc: CWM/NO/SICK CALL PA (Req'g Loc Img Loc: [facility]/BUILDING 1 Service: [place] [address] (Case [id number] COMPLETE) ABDOMEN (2 VIEWS) (RAD Detailed) CPT:26071 Reason for Study: constipation x 10 days Clinical History: Report Status: Verified Date Reported: MAR 22, 2024 Date Verified: MAR 22, 2024 General Operations Manager E-Sig: Report: ABDOMEN (2 VIEWS) Clinical History: Constipation x10 days Comparison: None. Findings: Multiple frontal views of the abdomen shows scattered gas within portions of the stomach, small and large bowel. Small bowel loops are nondilated. There is a scattered fecal material within a redundant colon. No discrete bowel wall thickening or pneumatosis is present. There is some prominence of the hepatic shadow with a suggested hepatic granuloma. There is a scoliotic deformity and degenerative changes within the spine. Multiple pelvic phleboliths are additionally noted. Impression: Nonobstructive bowel gas pattern with mildly prominent fecal burden. READING PHYSICIAN: Adrien Rod M.D. -[id number] 03/22/2024 11:23 EDT [facility] [phone] (For Medical Practitioner Use Only) Attention Patients / Veterans: If you have questions or concerns about these test results, please contact your ordering provider or primary care team. Primary Diagnostic Code: NO ALERT REQUIRED Primary Interpreting Staff: RADIOLOGY,OUTSIDE SERVICE, Staff Physician / RADIOLOGY,OUTSIDE SERVICE [facility] Encounter Notes: All associated encounter notes This section contains the clinical notes associated to the Encounter. Date/Time Encounter Note(s) Provider Source Mar 29, 2024 02:43 PM LETTERS: LOCAL TITLE: PATIENT LETTER (B) STANDARD TITLE: LETTERS DATE OF NOTE: MAR 29, 2024@14:43 ENTRY DATE: MAR 29, 2024@14:43:49 AUTHOR: KIARA CASH EXP COSIGNER: URGENCY: STATUS: COMPLETED The following letter was mailed to CHAR TATE on MAR 29, [address] [place], [place] [address] MAR 29, 2024 Dear Mr TATEBASHIRLACIE JESSI, : Jul Your recent ultrasound for liver was fine. See impression below: Impression: 1. The liver is borderline enlarged measuring up to approximately 18 cm. The suggested calcified granuloma on recent chest x-ray is not apparent on sonographic assessment. However, note that report from 03/24/2023 CT thorax describes calcified hepatic granuloma. 2. Cholelithiasis without findings to suggest acute cholecystitis. Below are your pending appointments at the [facility]: 04/29/2024 09:30 CWM/NO/MED REHAB 1 PA 05/09/2024 10:30 CWM/NO/PACT 3 06/16/2024 14:30 CWM/NO/PODIATRY/NAIL 08/19/2024 11:00 CWM/NO/RHEUMATOLOGY 09/13/2024 11:00 NHM/OPT/VISUAL IMAGING 09/13/2024 11:30 CWM/NO/OPTOMETRY/ZENOBIA If you have questions, please contact me through our Telephone Advice Program at: [phone] extension [phone] or [phone] extension [phone] (toll free in this region only). Sincerely, Kiara Cash PA-C [facility] [address] [place] [address] Ex KIARA CASH [facility] Mar 22, 2024 04:37 PM ADDENDUM: LOCAL TITLE: Addendum STANDARD TITLE: ADDENDUM DATE OF NOTE: MAR 22, 2024@16:37:49 ENTRY DATE: MAR 22, 2024@16:37:50 AUTHOR: KIARA CASH EXP COSIGNER: URGENCY: STATUS: COMPLETED Please inform him that i am ordering a liver US to f/u on 'shadow' seen on plain film. /elizabeth/ Kiara Cash PA-C STAFF PHYSICIAN MILL TENDER WASHING Signed: 03/22/2024 16:38 Receipt Acknowledged By: 03/24/2024 13:38 /elizabeth/ JANES DALLAS RN REGISTERED NURSE --- Original Document --- 03/22/24 WILLOW NOTE: SICK CALL VISIT HPI: 88-year-old male with below noted past medical history presents today for 10 days of constipation without relief using Colace. States that he stopped taking his iron tablets begin using the Colace but has had very little effect with very hard constipated small output for bowel movements. [place] does have gas and has been able to pass flatus. There is been no abdominal pain. No nausea or vomiting. No diarrhea or stooling around any mass effect of the constipated stool. He feels uncomfortable and is looking for assistance for improving his bowel movements. REVIEW OF SYSTEMS: A 12 point review of systems is negative except as noted in the HPI. Active Medical Problems: Active Problem Hematuria (SCT [id number]) R31.9 04/26/2021 KIARA CASH Inflamed Seborrheic Keratosis (SCT 05/13/2019 KIARA CASH Glaucoma R69. 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 KIARA CASH BPH W/O URINARY OBSTRUCT 600.00 05/12/2013 KIARA CASH Meds: Active Outpatient Medications (including Supplies): AMMONIUM LACTATE 12% LOTION APPLY MODERATE AMOUNT ACTIVE TOPICALLY ONCE DAILY FOR DRY IRRITATED SKIN CAPSAICIN 0.025% CREAM APPLY A THIN LAYER TOPICALLY TWICE ACTIVE DAILY NEEDED FOR LOCALIZED PAIN FOR KNEES CARBOXYMETHYLCELLULOSE NA 0.5% OPH SOLN INSTILL 1 DROP ACTIVE INTO EACH EYE FOUR TIMES DAILY NEEDED FOR DRYNESS EYELID CLEANSER,EYE SCRUB PAD USE 1 PAD TOPICALLY ONCE ACTIVE DAILY BLEPHARITIS FERROUS SULFATE 325MG TAB TAKE ONE TABLET BY MOUTH ONCE ACTIVE DAILY TO SUPPLEMENT IRON HYLAN G-F20 48MG/6ML INJ SYRINGE 6ML INJECT 48MG/6ML ACTIVE INTRA-ARTICULAR NEEDED FOR OSTEOARTHRITIS OF THE KNEE DIRECTED BY PROVIDER HYPROMELLOSE 0.3% OPH GEL APPLY 1 TO 2 DROPS INTO EACH EYE ACTIVE AT BEDTIME FOR DRY EYE LATANOPROST 0.005% OPH SOLN INSTILL 1 DROP INTO EACH EYE ACTIVE AT BEDTIME FOR INCREASED PRESSURE IN THE EYE METOPROLOL TARTRATE 50MG TAB TAKE ONE TABLET BY MOUTH ACTIVE TWICE DAILY FOR BLOOD PRESSURE/HEART OMEPRAZOLE 20MG EC CAP TAKE ONE CAPSULE BY MOUTH EVERY ACTIVE (S) MORNING 30 MINUTES BEFORE BREAKFAST ROSUVASTATIN CA 40MG TAB TAKE ONE TABLET BY MOUTH ONCE ACTIVE (S) DAILY FOR CHOLESTEROL TAMSULOSIN HCL 0.4MG CAP TAKE ONE CAPSULE BY MOUTH ONCE ACTIVE DAILY FOR ENLARGED PROSTATE Non-VA ACETAMINOPHEN TAB 1300 BY MOUTH EVERY MORNING AND ACTIVE 650MG BY MOUTH EVERY EVENING Non-VA ASPIRIN 81MG EC TAB 81MG BY MOUTH DAILY ACTIVE Non-VA MULTIVITAMIN/MINERALS CAP/TAB 1 TABLET BY MOUTH ACTIVE EVERY MORNING Allergies: PENICILLIN, NAPROXEN, CORTISONE Date Vital Measurement Qualifiers 03/22/2024 10:28 Temp F (C) 97.6 (36.4) Pulse 58 Respir 18 BP 159/66 Pain 1 POx (L/Min)(%) 94 At Rest FOCUSED EXAMINATION GEN: WD, NON-TOXIC, obese HEENT: NC/AT ABD: Soft, round, NTTP, no masses, no G/R/R Imaging: Findings: Multiple frontal views of the abdomen shows scattered gas within portions of the stomach, small and large bowel. Small bowel loops are nondilated. There is a scattered fecal material within a redundant colon. No discrete bowel wall thickening or pneumatosis is present. There is some prominence of the hepatic shadow with a suggested hepatic granuloma. There is a scoliotic deformity and degenerative changes within the spine. Multiple pelvic phleboliths are additionally noted. Impression: Nonobstructive bowel gas pattern with mildly prominent fecal burden. MDM: No clinical evidence of intra-abdominal pathology. Will alert PCP to hepatic shadow for follow-up. Will initiate lactulose 30 mL twice daily as needed. Once has had an adequate bowel movement he may discontinue the lactulose and begin MiraLAX daily. If he finds he needs to he may increase the MiraLAX to twice daily. [place] given list of foods such as spinach and prune juice to assist with improved fiber and motility. Red flags for ED evaluation discussed. Follow-up PCP as directed. RTC as needed. ASSESSMENT/PLAN Constipation As above [place] able to verbalize understanding of plan of care and agrees. >> MEDICATIONS Reviewed and reconciled with [place] /es/ LILIYA GONZALEZ MS,PAFredisC PHYSICIAN MILL TENDER WASHING Signed: 03/22/2024 11:50 Receipt Acknowledged By: 03/22/2024 12:57 /es/ JANES DALLAS, KIAH REGISTERED NURSE 03/22/2024 16:54 /elizabeth/ Kiara Cash PA-C STAFF PHYSICIAN MILL TENDER WASHING KIARA CASH [place] [facility] Mar 22, 2024 10:37 AM PHYSICIAN MILL TENDER WASHING NOTE: LOCAL TITLE: WILLOW NOTE STANDARD TITLE: PHYSICIAN MILL TENDER WASHING NOTE DATE OF NOTE: MAR 22, 2024@10:37 ENTRY DATE: MAR 22, 2024@10:37:06 AUTHOR: LILIYA CHOWDHURY EXP COSIGNER: URGENCY: STATUS: COMPLETED WILLOW NOTE Has ADDENDA SICK CALL VISIT HPI: 88-year-old male with below noted past medical history presents today for 10 days of constipation without relief using Colace. States that he stopped taking his iron tablets begin using the Colace but has had very little effect with very hard constipated small output for bowel movements. [place] does have gas and has been able to pass flatus. There is been no abdominal pain. No nausea or vomiting. No diarrhea or stooling around any mass effect of the constipated stool. He feels uncomfortable and is looking for assistance for improving his bowel movements. REVIEW OF SYSTEMS: A 12 point review of systems is negative except as noted in the HPI. Active Medical Problems: Active Problem Hematuria ([facility] [id number]) R31.9 04/26/2021 KIARA CASH Inflamed Seborrheic Keratosis (SCT 05/13/2019 KIARA CASH Glaucoma R69. 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 05/12/2013 KIARA CASH BPH W/O URINARY OBSTRUCT 600.00 05/12/2013 KIARA CASH Meds: Active Outpatient Medications (including Supplies): AMMONIUM LACTATE 12% LOTION APPLY MODERATE AMOUNT ACTIVE TOPICALLY ONCE DAILY FOR DRY IRRITATED SKIN CAPSAICIN 0.025% CREAM APPLY A THIN LAYER TOPICALLY TWICE ACTIVE DAILY NEEDED FOR LOCALIZED PAIN FOR KNEES CARBOXYMETHYLCELLULOSE NA 0.5% OPH SOLN INSTILL 1 DROP ACTIVE INTO EACH EYE FOUR TIMES DAILY NEEDED FOR DRYNESS EYELID CLEANSER,EYE SCRUB PAD USE 1 PAD TOPICALLY ONCE ACTIVE DAILY BLEPHARITIS FERROUS SULFATE 325MG TAB TAKE ONE TABLET BY MOUTH ONCE ACTIVE DAILY TO SUPPLEMENT IRON HYLAN G-F20 48MG/6ML INJ SYRINGE 6ML INJECT 48MG/6ML ACTIVE INTRA-ARTICULAR NEEDED FOR OSTEOARTHRITIS OF THE KNEE DIRECTED BY PROVIDER HYPROMELLOSE 0.3% OPH GEL APPLY 1 TO 2 DROPS INTO EACH EYE ACTIVE AT BEDTIME FOR DRY EYE LATANOPROST 0.005% OPH SOLN INSTILL 1 DROP INTO EACH EYE ACTIVE AT BEDTIME FOR INCREASED PRESSURE IN THE EYE METOPROLOL TARTRATE 50MG TAB TAKE ONE TABLET BY MOUTH ACTIVE TWICE DAILY FOR BLOOD PRESSURE/HEART OMEPRAZOLE 20MG EC CAP TAKE ONE CAPSULE BY MOUTH EVERY ACTIVE (S) MORNING 30 MINUTES BEFORE BREAKFAST ROSUVASTATIN CA 40MG TAB TAKE ONE TABLET BY MOUTH ONCE ACTIVE (S) DAILY FOR CHOLESTEROL TAMSULOSIN HCL 0.4MG CAP TAKE ONE CAPSULE BY MOUTH ONCE ACTIVE DAILY FOR ENLARGED PROSTATE Non-VA ACETAMINOPHEN TAB 1300 BY MOUTH EVERY MORNING AND ACTIVE 650MG BY MOUTH EVERY EVENING Non-VA ASPIRIN 81MG EC TAB 81MG BY MOUTH DAILY ACTIVE Non-VA MULTIVITAMIN/MINERALS CAP/TAB 1 TABLET BY MOUTH ACTIVE EVERY MORNING Allergies: PENICILLIN, NAPROXEN, CORTISONE Date Vital Measurement Qualifiers 03/22/2024 10:28 Temp F (C) 97.6 (36.4) Pulse 58 Respir 18 BP 159/66 Pain 1 POx (L/Min)(%) 94 At Rest FOCUSED EXAMINATION GEN: WD, NON-TOXIC, obese HEENT: NC/AT ABD: Soft, round, NTTP, no masses, no G/R/R Imaging: Findings: Multiple frontal views of the abdomen shows scattered gas within portions of the stomach, small and large bowel. Small bowel loops are nondilated. There is a scattered fecal material within a redundant colon. No discrete bowel wall thickening or pneumatosis is present. There is some prominence of the hepatic shadow with a suggested hepatic granuloma. There is a scoliotic deformity and degenerative changes within the spine. Multiple pelvic phleboliths are additionally noted. Impression: Nonobstructive bowel gas pattern with mildly prominent fecal burden. MDM: No clinical evidence of intra-abdominal pathology. Will alert PCP to hepatic shadow for follow-up. Will initiate lactulose 30 mL twice daily as needed. Once has had an adequate bowel movement he may discontinue the lactulose and begin MiraLAX daily. If he finds he needs to he may increase the MiraLAX to twice daily. given list of foods such as spinach and prune juice to assist with improved fiber and motility. Red flags for ED evaluation discussed. Follow-up PCP as directed. RTC as needed. ASSESSMENT/PLAN Constipation As above able to verbalize understanding of plan of care and agrees. >> MEDICATIONS Reviewed and reconciled with [place] /elizabeth/ LILIYA GONZALEZ MS,PAFredisC PHYSICIAN MILL TENDER WASHING Signed: 03/22/2024 11:50 Receipt Acknowledged By: 03/22/2024 12:57 /elizabeth/ JANES DALLAS RN REGISTERED NURSE 03/22/2024 16:54 /elizabeth/ Kiaar Cash PA-C STAFF PHYSICIAN MILL TENDER WASHING 03/22/2024 ADDENDUM STATUS: COMPLETED Please inform him that i am ordering a liver US to f/u on 'shadow' seen on plain film. /elizabeth/ Kiara Cash PA-C STAFF PHYSICIAN MILL TENDER WASHING Signed: 03/22/2024 16:38 Receipt Acknowledged By: 03/24/2024 13:38 /elizabeth/ JANES DALLAS RN REGISTERED NURSE 03/24/2024 ADDENDUM STATUS: COMPLETED Spoke to [place] and relayed message per provider. [place] understood and agreed to plan. /elizabeth/ JANES DALLAS RN REGISTERED NURSE Signed: 03/24/2024 13:40 LILIYA CHOWDHURY [facility]
--- OUTSIDE RECORDS SUMMARY | 2024-05-16 14:07 | XMS_ITS | Encounter Summary ---
Author Name [facility] [place] [facility] [place] Address [address] [place] [address] Care Team Providers Care Logistics Support Name Role Phone KIARA ESPARZA Primary Care [...] Colbert's Name Patient's Relationship to Policy Colbert [facility] (WNR) MEDICARE ADVANTAGE [facility] (WNR) Jun 01, 2017 [id number] Krishan TATE PATIENT [facility] (WNR) MEDICARE ADVANTAGE [facility] (WNR) Jun 01, 2017 [id number] Krishan TATE PATIENT [facility] (WNR) MEDICARE ADVANTAGE [facility] (WNR) Jun 01, 2017 [id number] Krishan TATE PATIENT Selected Encounter This section includes the information on record at [place] for the Encounter. Date/Time Encounter Type Encounter Description Reason Pro vider Source Dec 22, 2023 12:00 AM Outpatient Encounter EVENT (HISTORICAL) [...] Appointment Type Appointme nt Facility Name Jan 06, 2024 10:40 AM AMBULATORY [place] MEDICINE [facility] [place] [facility] Jan 12, 2024 02:30 PM AMBULATORY - MEDICINE [facility] [place] [facility] Jan 25, 2024 10:30 AM AMBULATORY - MEDICINE [facility] [place] [facility] Feb 05, 2024 11:00 AM AMBULATORY - MEDICINE [facility] [place] [facility] Feb 16, 2024 11:30 AM AMBULATORY - MEDICINE [facility] [place] [facility] Mar 22, 2024 10:30 AM AMBULATORY - MEDICINE [facility] [place] [facility] Mar 22, 2024 10:31 AM AMBULATORY - MEDICINE [facility] [place] [facility] Mar 24, 2024 02:30 PM AMBULATORY - MEDICINE [facility] [place] [facility] Mar 29, 2024 10:30 AM AMBULATORY - NONE [facility] [place] [facility] Apr 07, 2024 08:00 AM AMBULATORY - MEDICINE [facility] [place] [facility] Apr 20, 2024 10:40 AM AMBULATORY - MEDICINE [facility] [place] [facility] May 09, 2024 10:30 AM AMBULATORY - MEDICINE [facility] [place] [facility] May 16, 2024 02:15 PM AMBULATORY - MEDICINE [facility] [place] [facility] Jun 03, 2024 03:00 PM AMBULATORY - MEDICINE [facility] [place] [facility] Jun 16, 2024 02:30 PM [facility]UL[facility] [place] [facility] Jun 22, 2024 10:50 AM AMBULATORY - [facility] Lab Results: +/- 30 days of [...] Range Comment Jan 18, 2024 09:04 AM [facility] LIPID PANEL FASTING Specimen Type: SERUM No comment entered. Ordering Provider: STEVE ESPARZA Report Released Date/Time: Sep 28, 2023 11:20 AM Reporting Lab: [facility] [address] [address] Performing Lab: [facility] [address] CHOLESTEROL 107 mg/dL TRIGLYCERIDE 225 mg/dL H 0-150 LDL calculated 33 mg/dL 0-129 CHOL/HDL 3.7 HDL CHOLESTEROL 29 mg/dL L 40-60 Jan 18, 2024 09:04 AM [facility] VITAMIN D (25-OH) Specimen Type: SERUM No comment entered. Ordering Provider: STEVE ESPARZA Report Released Date/Time: Sep 28, 2023 11:20 AM Reporting Lab: [facility] [address] [facility] [address] Performing Lab: [facility] [address] [address] VITAMIN D (25-OH) 40 ng/mL 20-50 Jan 18, 2024 09:04 AM [facility] BASIC METABOLIC PANEL (fasting) Specimen Type: SERUM No comment entered. Ordering Provider: STEVE ESPARZA Report Released Date/Time: Sep 28, 2023 11:20 AM Reporting Lab: [facility] [address] Performing Lab: [facility] [address] [facility] [facility] [address] UREA NITROGEN 17 mg/dL 7-25 GLUCOSE 93 mg/dL 65-100 SODIUM 141 mmol/L 135-145 POTASSIUM 4.7 mmol/L 3.5-5.0 CHLORIDE 109 mmol/L 100-110 CO2 25 meq/L 20-30 CREATININE, Serum 0.86 mg/dL 0.50-1.40 eGFR(CKD-EPI 2020) 84 mL/min >60 Jan 18, 2024 09:04 AM [facility] LIVER FUNCTION Specimen Type: SERUM No comment entered. Ordering Provider: STEVE ESPARZA Report Released Date/Time: Sep 28, 2023 11:20 AM Reporting Lab: [facility] [address] [facility] [address] Performing Lab: [address] [address] PROTEIN,TOTAL 6.1 g/dL 6.0-8.3 ALBUMIN 3.9 g/dL [...] took place. Date/Time Current Smoking Status Comment [facility] it Dec 21, 2023 11:40 AM [place]-TOBACCO QUIT 15 YRS OR MORE [facility] Tobacco Use History This section includes a history of the smoking, or tobacco-related health factors, that were collected on or before the date of the Encounter. The data comes from the [place] facility where the Encounter took place. Date/Time Smoking Status/Tobac co Use Comment Facility Dec 21, 2023 11:40 AM [place]-TOBACCO QUIT 15 YRS OR MORE [facility] Oct 31, 2022 11:30 AM VA-TOBACCO FORMER USER [facility] [place] [facility] Oct 31, 2022 11:30 AM VA-TOBACCO QUIT 15 YRS OR MORE [facility] [place] [facility] Sep 17, 2021 03:00 PM VA-TOBACCO FORMER USER [facility] [place] [facility] Sep 17, 2021 03:00 PM VA-TOBACCO QUIT 15 YRS OR MORE [facility] [place] [facility] Aug 15, 2020 10:00 AM VA-TOBACCO FORMER USER [facility] [place] [facility] Aug 15, 2020 10:00 AM VA-TOBACCO QUIT 15 YRS OR MORE [facility] [place] [facility] May 12, 2019 03:07 PM VA-TOBACCO FORMER USER [facility] [place] [facility] May 12, 2019 03:07 PM VA-TOBACCO QUIT 15 YRS OR MORE [place] [facility] [place] [facility] May 31, 2018 01:08 PM VA-TOBACCO FORMER USER [place] [facility] [place] [facility] May 31, 2018 01:08 PM VA-TOBACCO QUIT 15 YRS OR MORE [place] [facility] [place] [facility] Feb 16, 2017 01:33 PM QUIT TOBACCO USE > 7 YEARS AGO quit 16 years ago [place] [facility] [place] [facility] Nov 13, 2015 03:48 PM QUIT TOBACCO USE > 7 YEARS AGO . [place] [facility] [place] [facility] May 12, 2013 12:49 PM QUIT TOBACCO USE > 7 YEARS AGO quit 2001 [place] [facility] [place] [facility] Advance Directives: All historical and [...] LENORA CARCAMO [place] [facility] [facility] [place] [facility] Aug 16, 2020 ADVANCE DIRECTIVE EDMUND MORGAN [place] [facility] [place] [facility] Encounter Notes: All associated encounter notes This section contains the clinical notes associated to the Encounter. Date/Time Encounter Note(s) Provider Source Dec 22, 2023 12:00 AM NONVA CONSULT: LOCAL TITLE: COMMUNITY CARE-CONSULT RESULT NOTE STANDARD TITLE: NONVA CONSULT DATE OF NOTE: DEC 22, 2023 ENTRY DATE: FEB 16, 2024@05:49:43 AUTHOR: LEELEE YOUSIF EXP COSIGNER: URGENCY: STATUS: COMPLETED VistA Imaging - Scanned Document SCANNED DOCUMENT SIGNATURE NOT REQUIRED Electronically Filed: 02/16/2024 by: LEELEE STILES [place] [facility]
--- OUTSIDE RECORDS SUMMARY | 2024-05-16 14:07 | XMS_ITS | Encounter Summary ---
Author Name [facility] [place] Address [address] [place] [address] Care Team Providers Care Personal Clothing Laundry Aide Name Role Phone KIARA ESPARZA Primary Care [...] Colbert's Name Patient's Relationship to Policy Colbert [facility] (WNR) MEDICARE [facility] (WNR) Jun 01, 2017 [id number] Krishan TATE PATIENT [facility] (WNR) MEDICARE [facility] (WNR) Jun 01, 2017 [id number] Krishan TATE PATIENT [facility] (WNR) MEDICARE ADVANTAGE [facility] (WNR) Jun 01, 2017 [id number] [phone] Krsihan TATE PATIENT Selected Encounter This section includes the information on record at [place] for the Encounter. Date/Time Encounter Type Encounter Description Reason Pro vider Source Feb 25, 2024 09:21 AM Outpatient Encounter OPTOMETRY IHE Encounter Template Text not used by [place] Plan of Treatment: Future Appointments (+ 6 months) and Future Tests (+/- 45 days) The Plan of Treatment section includes future care activities for the patient from all [place] treatmentfacilities. This section includes future appointments and [...] - MEDICINE [facility] [place] [facility] Mar 22, 2024 10:31 AM AMBULATORY - MEDICINE [facility] [place] [facility] Mar 24, 2024 02:30 PM AMBULATORY - MEDICINE [facility] [place] [facility] Mar 29, 2024 10:30 AM AMBULATORY - NONE [facility] [place] [facility] Apr 07, 2024 08:00 AM AMBULATORY - MEDICINE [facility] [place] [facility] Apr 20, 2024 10:40 AM AMBULATORY - MEDICINE [facility] [place] [facility] May 09, 2024 10:30 AM AMBULATORY - MEDICINE [facility] [place] [facility] May 16, 2024 02:15 PM AMBULATORY - MEDICINE [facility] [place] [facility] Jun 03, 2024 03:00 PM AMBULATORY - MEDICINE [facility] [place] [facility] Jun 16, 2024 02:30 PM AMBULATORY - MEDICINE [facility] [place] [facility] Jun 22, 2024 10:50 AM AMBULATORY - MEDICINE [facility] [place] [facility] Aug 05, 2024 11:00 AM AMBULATORY - MEDICINE [facility] [place] [facility] Aug 19, 2024 11:00 AM AMBULATORY - MEDICINE [place] [facility] [place] [facility] Active, Pending, and Scheduled Orders This section includes a listing of several types of active, pending, and scheduled orders, including clinic medications orders, diagnostic test orders, procedure orders and consult orders; where the start date of the order is 45 days before the date of the Encounter or 45 days after the date of theEncounter. The data comes from all [place] treatment facilities. Test Date/Time Test Type Test Details Facility Name Mar 31, 2024 08:02 AM Consult Order [facility] Cons Director Security Management's Choice [place] [facility] [facility] Social History: Smoking Status (Most current) and [...] took place. Date/Time Current Smoking Status Comment [facility] Dec 21, 2023 11:40 AM [facility]TO[facility]ACCO [facility] [place] [facility] Tobacco Use History This section includes a history of the smoking, or tobacco-related health factors, that were collected on or before the date of the Encounter. The data comes from the [place] facility where the Encounter took place. Date/Time Smoking Status/Tobac co Use Comment [facility] Dec 21, 2023 11:40 AM VA-TOBACCO QUIT 15 YRS OR MORE [place] [facility] [place] [facility] Oct 31, 2022 11:30 AM VA-TOBACCO FORMER USER [place] [facility] [place] [facility] Oct 31, 2022 11:30 AM VA-TOBACCO QUIT 15 YRS OR MORE [place] [facility] [place] [facility] Sep 17, 2021 03:00 PM VA-TOBACCO FORMER USER [place] [facility] [place] [facility] Sep 17, 2021 03:00 PM VA-TOBACCO QUIT 15 YRS OR MORE [place] [facility] [place] [facility] Aug 15, 2020 10:00 AM VA-TOBACCO FORMER USER [place] [facility] [place] [facility] Aug 15, 2020 10:00 AM VA-TOBACCO QUIT 15 YRS OR MORE [place] [facility] [place] [facility] May 12, 2019 03:07 PM VA-TOBACCO FORMER USER [place] [facility] [place] [facility] May 12, 2019 03:07 PM VA-TOBACCO QUIT 15 YRS OR MORE [facility] [place] [facility] May 31, 2018 01:08 PM [place] [facility]ER [place] [facility] May 31, 2018 01:08 PM [place]-TOBACCO QUIT 15 YRS OR MORE [place] [facility] Feb 16, 2017 01:33 PM QUIT TOBACCO USE > 7 YEARS AGO quit 16 years ago [facility] Nov 13, 2015 03:48 PM QUIT TOBACCO USE > 7 YEARS AGO . [place] [facility] May 12, 2013 12:49 PM QUIT TOBACCO USE > 7 YEARS AGO quit 2001 [facility] Advance Directives: All historical and [...] Nov 03, 2022 ADVANCE DIRECTIVE LENORA CARCAMO [facility] Aug 16, 2020 ADVANCE DIRECTIVE EDMUND MORGAN [facility] Radiology Reports: +/- 30 days of the [...] the Encounter. The data comes from all [place] treatment facilities. Date/Time Radiology Report Provider Source Mar 22, 2024 10:50 AM ABDOMEN (2 VIEWS): CHAR TATE [id number] -1935 M Exm Date: MAR 22, 2024@10:50 Req Phys: LILIYA CHOWDHURY Loc: CWM/NO/SICK CALL PA (Req'g Loc Img Loc: NHM/BUILDING 1 Service: Unknown [facility] [place] [address] (Case 98 COMPLETE) ABDOMEN (2 VIEWS) (RAD Detailed) CPT:42888 Reason for Study: constipation x 10 days Clinical History: Report Status: Verified Date Reported: MAR 22, 2024 Date Verified: MAR 22, 2024 Mint Machine Operator E-Sig: Report: ABDOMEN (2 VIEWS) Clinical History: [...] fecal burden. READING PHYSICIAN: Adrien Rod M.D. -[id number] 03/22/2024 11:23 EDT [facility] National Teleradiology Program [phone] (For Medical Practitioner Use Only) Attention Patients / Veterans: If you have questions or concerns about these test results, please contact your ordering provider or primary care team. Primary Diagnostic Code: NO ALERT REQUIRED Primary Interpreting Staff: RADIOLOGY,OUTSIDE SERVICE, Staff Physician / RADIOLOGY,OUTSIDE SERVICE [facility] Encounter Notes: All associated encounter notes This section contains the clinical notes associated to the Encounter. Date/Time Encounter Note(s) Provider Source Feb 25, 2024 08:19 PM ADDENDUM: LOCAL TITLE: Addendum STANDARD TITLE: ADDENDUM DATE OF NOTE: FEB 25, 2024@20:19:53 ENTRY DATE: FEB 25, 2024@20:19:55 AUTHOR: GERARD FREGOSO EXP COSIGNER: URGENCY: STATUS: COMPLETED Please let him know he can try the gel which I thought might be better and if he doesnot like it I can order the ointment instead. /elizabeth/ Gerard Fregoso OD CHIEF OF OPTOMETRY Signed: 02/25/2024 20:20 Receipt Acknowledged By: 02/26/2024 10:05 /es/ STEPHANIE JOSÉ OPTOMETRY TECH 02/29/2024 07:51 /elizabeth/ Melody King Optometry Health Hog Tender ====== --- Original Document --- 02/25/24 TELEPHONE NOTE/SPECIALTY CLINIC: [place] called stating he got his new eye medications. He called because he used to be using an ointment and this new one is a gel. [place] wants to know if he is supposed to finish the ointment he has and then change to the gel. Veterans phone number has been confirmed. /elizabeth/ KATIE STANTON TOWER HOIST OPERATOR Signed: 02/25/2024 09:23 Receipt Acknowledged By: 02/25/2024 20:19 /elizabeth/ Gerard Fregoso OD CHIEF OF OPTOMETRY 02/26/2024 ADDENDUM STATUS: COMPLETED I called and left a voicemail saying that the provider, Dr Fregoso, thought the gel may be better, and the patient can try it. If he doesnt like it, we can order the ungent. /es/ STEPHANIE JOSÉ OPTOMETRY TECH Signed: 02/26/2024 10:04 GERARD FREGOSO [facility] [place] [facility] Feb 25, 2024 09:21 AM TELEPHONE ENCOUNTE R NOTE: LOCAL TITLE: TELEPHONE NOTE/SPECIALTY CLINIC STANDARD TITLE: TELEPHONE ENCOUNTER NOTE DATE OF NOTE: FEB 25, 2024@09:21 ENTRY DATE: FEB 25, 2024@09:21:54 AUTHOR: KATIE STANTON EXP COSIGNER: URGENCY: STATUS: COMPLETED TELEPHONE NOTE/SPECIALTY CLINIC Has ADDENDA [place] called stating he got his new eye medications. He called because he used to be using an ointment and this new one is a gel. [place] wants to know if he is supposed to finish the ointment he has and then change to the gel. Veterans phone number has been confirmed. /elizabeth/ KATIE STANTON TOWER HOIST OPERATOR Signed: 02/25/2024 09:23 Receipt Acknowledged By: 02/25/2024 20:19 /elizabeth/ Gerard R Mayelin OD CHIEF OF OPTOMETRY 02/25/2024 ADDENDUM STATUS: COMPLETED Please let him know he can try the gel which I thought might be better and if he doesnot like it I can order the ointment instead. /elizabeth/ Gerard Fregoso OD CHIEF OF OPTOMETRY Signed: 02/25/2024 20:20 Receipt Acknowledged By: 02/26/2024 10:05 /elizabeth/ STEPHANIE JOSÉ OPTOMETRY TECH * AWAITING SIGNATURE * MELODY KING 02/26/2024 ADDENDUM STATUS: COMPLETED I called and left a voicemail saying that the provider, Dr Fregoso, thought the gel may be better, and the patient can try it. If he doesnt like it, we can order the ungent. /elizabeth/ STEPHANIE JOSÉ OPTOMETRY TECH Signed: 02/26/2024 10:04 KATIE STANTON [facility]
--- OUTSIDE RECORDS SUMMARY | 2024-05-16 14:07 | XMS_ITS | Encounter Summary ---
Author Name [facility] [place] Address [address] [place] [address] Care Team Providers Care Stock Associate Name Role Phone KIARA ESPARZA Primary Care [...] Name Patient's Relationship to Policy Colbert KYLIE [facility] (WNR) MEDICARE ADVANTAGE [facility] (WNR) Jun 01, 2017 [id number] Krishan TATE PATIENT [facility] (WNR) MEDICARE [facility] (WNR) Jun 01, 2017 [id number] Krishan TATE PATIENT [facility] (WNR) MEDICARE ADVANTAGE [facility] (WNR) Jun 01, 2017 [id number] Krishan TATE PATIENT Selected Encounter This section includes the information on record at [place] for the Encounter. Date/Time Encounter Type Encounter Description Reason Pro vider Source Mar 07, 2024 09:25 AM Outpatient Encounter TELEPHONE PRIMARY CARE IHE Encounter Template Text not used by [place] Plan of Treatment: Future Appointments (+ 6 months) and Future Tests (+/- 45 days) The Plan of Treatment section includes future care activities for the patient from all [place] treatmentfacilities. This section includes future appointments and future orders which are active, pending or scheduled. Future Appointments This section includes appointments that were scheduled to occur 6 months from the date of the Encounter, up to a maximum of 20 appointments. The data comes from all [place] treatment facilities. Appointment Date/Time Appointment Type Appointme nt Facility Name Mar 22, 2024 10:30 AM AMBULATORY - MEDICINE [facility] [place] [facility] Mar 22, 2024 10:31 AM AMBULATORY - MEDICINE [facility] [place] [facility] Mar 24, 2024 02:30 PM AMBULATORY - MEDICINE [facility] [place] [facility] Mar 29, 2024 10:30 AM AMBULATORY - NONE [facility] [place] [facility] Apr 07, 2024 08:00 AM AMBULATORY - MEDICINE [facility] [place] [facility] Apr 20, 2024 10:40 AM AMBULATORY - MEDICINE [facility] [place] [facility] May 09, 2024 10:30 AM AMBULATORY - MEDICINE [facility] [place] [facility] May 16, 2024 02:15 PM AMBULATORY - MEDICINE [facility] [place] [facility] Jun 03, 2024 03:00 PM AMBULATORY - MEDICINE [facility] [place] [facility] Jun 16, 2024 02:30 PM AMBULATORY - MEDICINE [facility] [place] [facility] Jun 22, 2024 10:50 AM AMBULATORY - MEDICINE [facility] [place] [facility] Aug 05, 2024 11:00 AM AMBULATORY - MEDICINE [facility] [place] [facility] Aug 19, 2024 11:00 AM AMBULATORY - MEDICINE [facility] [place] [facility] Active, Pending, and Scheduled Orders This section includes a listing of several types of active, pending, and scheduled orders, including clinic medications orders, diagnostic test orders, procedure orders and consult orders; where the start date of the order is 45 days before the date of the Encounter or 45 days after the date of theEncounter. The data comes from all [place] treatment facilities. Test Date/Time Test Type Test Details Facility Name Mar 31, 2024 08:02 AM Consult Order COMMUNITY CARE-NEUROLOGY Cons Power Systems Engineer's Choice [place] [facility] [place] [facility] Social History: Smoking Status (Most current) and Tobacco Use (All prior to encounter date) This section includes the most current, and the historical, smoking and tobacco- related health factors from the [place] facility where the Encounter took place. Current Smoking Status This section includes the most current smoking, or tobacco-related health factor, from the [place] facility where the Encounter took place. Date/Time Current Smoking Status Comment [facility] Dec 21, 2023 11:40 AM [facility] [place] [facility] Tobacco Use History This section includes a history of the smoking, or tobacco-related health factors, that were collected on or before the date of the Encounter. The data comes from the [place] facility where the Encounter took place. Date/Time Smoking Status/Tobac co Use Comment [facility] Dec 21, 2023 11:40 AM VA-TOBACCO QUIT 15 YRS OR MORE [place] [facility] [place] [facility] Oct 31, 2022 11:30 AM VA-TOBACCO FORMER USER [place] [facility] [place] [facility] Oct 31, 2022 11:30 AM VA-TOBACCO QUIT 15 YRS OR MORE [place] [facility] [place] [facility] Sep 17, 2021 03:00 PM VA-TOBACCO FORMER USER [place] [facility] [place] [facility] Sep 17, 2021 03:00 PM VA-TOBACCO QUIT 15 YRS OR MORE [place] [facility] [place] [facility] Aug 15, 2020 10:00 AM VA-TOBACCO FORMER USER [place] [facility] [place] [facility] Aug 15, 2020 10:00 AM VA-TOBACCO QUIT 15 YRS OR MORE [place] [facility] [place] [facility] May 12, 2019 03:07 PM VA-TOBACCO FORMER USER [place] [facility] [place] [facility] May 12, 2019 03:07 PM VA-TOBACCO QUIT 15 YRS OR MORE [facility] May 31, 2018 01:08 PM [facility] May 31, 2018 01:08 PM VA-TOBACCO QUIT 15 YRS OR MORE [facility] Feb 16, 2017 01:33 PM QUIT TOBACCO USE > 7 YEARS AGO quit 16 years ago [facility] Nov 13, 2015 03:48 PM QUIT TOBACCO USE > 7 YEARS AGO . [facility] May 12, 2013 12:49 PM QUIT TOBACCO USE > 7 YEARS AGO quit 2001 [facility] Advance Directives: All historical and current Section Date Range: From patient's date of to the date document was created. This section includes ALL of a patient's completed or amended [place] Advance and Rescinded Directives. The entries below indicate that a directive exists for the patient, but an actual copy is not included with this document. The data comes from all [place] facilities. Date Advance Directives Provider Source Nov 03, 2022 ADVANCE DIRECTIVE LENORA CARCAMO [facility] Aug 16, 2020 ADVANCE DIRECTIVE EDMUND MORGAN [facility] Radiology Reports: +/- 30 days of [...] the Encounter. The data comes from all [place] treatment facilities. Date/Time Radiology Report Provider Source Mar 29, 2024 10:17 AM ABDOMINAL ULTRASOUND: CHAR TATE [id number] -[id number] M Ex Date: MAR 29, 2024@10:17 Req Phys: KIARA ESPARZA Loc: CWM/NO/SICK CALL PA (Req'g Loc Img Loc: ULTRASOUND Service: Unknown [facility] [place] [address] (Case [id number] COMPLETE) ULTRASOUND ABDOMEN LIMITED (US Detailed) CPT:98574 Reason for Study: Liver Clinical History: There is some prominence of the hepatic shadow with a suggested hepatic granuloma on plain film today. Report Status: Verified Date Reported: MAR 29, 2024 Date Verified: MAR 29, 2024 Beet Topper E-Sig: Report: ULTRASOUND ABDOMEN LIMITED [PRINTSET] HISTORY: Liver COMPARISON: 03/22/2024 abdomen x-ray TECHNIQUE: Ultrasound of the right upper abdomen was performed at the local [place] facility. 34 images were received by the [place] National Teleradiology Program (NTP) for interpretation. FINDINGS: [...] acute cholecystitis. READING PHYSICIAN: Cintia Campbell M.D. -[phone] 03/29/2024 14:38 EDT [facility] [employer] Network[employer] Program [phone] (For Medical Practitioner Use Only) Attention Patients / Veterans: If you have questions or concerns about these test results, please contact your ordering provider or primary care team. Primary Diagnostic Code: NO ALERT REQUIRED Primary Interpreting Staff: RADIOLOGY,OUTSIDE SERVICE, Staff Physician / RADIOLOGY,OUTSIDE SERVICE [place] [facility] [place] [facility] Mar 22, 2024 10:50 AM ABDOMEN (2 VIEWS): CHAR TATE [id number] -[id number] M Exm Date: MAR 22, 2024@10:50 Req Phys: LILYIA CHOWDHURY Pat Loc: CWM/NO/SICK CALL PA (Req'g Loc Img Loc: NHM/BUILDING 1 Service: Unknown [facility] [place] [address] (Case [id number] COMPLETE) ABDOMEN (2 VIEWS) (RAD Detailed) CPT:53924 Reason for Study: constipation x 10 days Clinical History: Report Status: Verified Date Reported: MAR 22, 2024 Date Verified: MAR 22, 2024 Beet Topper E-Sig: Report: ABDOMEN (2 VIEWS) Clinical History: [...] fecal burden. READING PHYSICIAN: Adrien Rod M.D. -[id number] 03/22/2024 11:23 EDT [facility] National Teleradiology Program [phone] (For Medical Practitioner Use Only) Attention Patients / Veterans: If you have questions or concerns about these test results, please contact your ordering provider or primary care team. Primary Diagnostic Code: NO ALERT REQUIRED Primary Interpreting Staff: RADIOLOGY,OUTSIDE SERVICE, Staff Physician / RADIOLOGY,OUTSIDE SERVICE [facility] Encounter Notes: All associated encounter notes This section contains the clinical notes associated to the Encounter. Date/Time Encounter Note(s) Provider Source Mar 07, 2024 09:25 AM TELEPHONE ENCOUNTE R NOTE: LOCAL TITLE: TELEPHONE NOTE/SPECIALTY CLINIC STANDARD TITLE: TELEPHONE ENCOUNTER NOTE DATE OF NOTE: MAR 07, 2024@09:25 ENTRY DATE: MAR 07, 2024@09:25:08 AUTHOR: ADE [place] EXP COSIGNER: URGENCY: STATUS: COMPLETED needs air filters.Address correct /elizabeth/ ADE [facility] Signed: 03/07/2024 09:26 ADE [place] [facility]
--- OUTSIDE RECORDS SUMMARY | 2024-05-16 14:07 | XMS_ITS | Encounter Summary ---
Author Name [facility] [place] Address [address] [place] [address] Care Team Providers Care Health Educator Name Role Phone KIARA ESPARZA Primary Care [...] Colbert's Name Patient's Relationship to Policy Colbert [facility] (WNR) MEDICARE ADVANTAGE [facility] (WNR) Jun 01, 2017 [id number] Krishan TATE PATIENT [facility] (WNR) MEDICARE ADVANTAGE [facility] (WNR) Jun 01, 2017 [id number] Krishan TATE PATIENT [facility] (WNR) MEDICARE ADVANTAGE [facility] (WNR) Jun 01, 2017 [id number] [phone] Krishan TATE PATIENT Selected Encounter This section includes the information on record at [place] for the Encounter. Date/Time Encounter Type Encounter Description Reason Provider Source Mar 24, 2024 02:30 PM TRIM NAIL(S) PODIATRY ICD-10-CM L60.3 Nail dystrophy DONAVAN FLORES Avis Encounter Template Text not used by [place] Assessments - Encounter Diagnoses This section includes the primary and secondary diagnoses documented for the Encounter. Date/Time Primary/Secondary Diagnosis Diagnosis Name Provider Source Mar 24, 2024 03:07 PM PRIMARY Nail dystrophy DONAVAN FLORES [place] [facility] [place] [facility] Plan of Treatment: Future Appointments (+ 6 months) and Future Tests (+/- 45 days) The Plan of Treatment section includes future care activities for the patient from all [place] treatmentfacilities. This section includes future appointments and future orders which are active, pending or scheduled. Future Appointments This section includes appointments that were scheduled to occur 6 months from the date of the Encounter, up to a maximum of 20 appointments. The data comes from all [place] treatment facilities. Appointment Date/Time Appointment Type Appointme nt Facility Name Mar 29, 2024 10:30 AM AMBULATORY - NONE [place] [facility] [place] [facility] Apr 07, 2024 08:00 AM AMBULATORY - MEDICINE [facility] [place] [facility] Apr 20, 2024 10:40 AM AMBULATORY - MEDICINE [facility] [place] [facility] May 09, 2024 10:30 AM AMBULATORY - MEDICINE [place] [facility] [place] [facility] May 16, 2024 02:15 PM AMBULATORY - MEDICINE [facility] [place] [facility] Jun 03, 2024 03:00 PM AMBULATORY - MEDICINE [facility] [place] [facility] Jun 16, 2024 02:30 PM AMBULATORY - MEDICINE [facility] [place] [facility] Jun 22, 2024 10:50 AM AMBULATORY - MEDICINE [facility] [place] [facility] Aug 05, 2024 11:00 AM AMBULATORY - MEDICINE [facility] [place] [facility] Aug 19, 2024 11:00 AM AMBULATORY - MEDICINE [facility] [place] [facility] Sep 13, 2024 11:00 AM AMBULATORY - MEDICINE [facility] [place] [facility] Sep 13, 2024 11:30 AM AMBULATORY - [facility]ICINE [place] [facility] Active, Pending, and Scheduled Orders This section includes a listing of several types of active, pending, and scheduled orders, including clinic medications orders, diagnostic test orders, procedure orders and consult orders; where the start date of the order is 45 days before the date of the Encounter or 45 days after the date of theEncounter. The data comes from all [place] treatment facilities. Test Date/Time Test Type Test Details Facility Name Mar 31, 2024 08:02 AM Consult Order COMMUNITY CARE-NEUROLOGY Cons Associate Director Of Development's Choice [facility] Social History: Smoking Status (Most current) and Tobacco Use (All prior to encounter date) This section includes the most current, and the historical, smoking and tobacco- related health factors from the [place] facility where the Encounter took place. Current Smoking Status This section includes the most current smoking, or tobacco-related health factor, from the [place] facility where the Encounter took place. Date/Time Current Smoking Status Comment [facility] Dec 21, 2023 11:40 AM VA-TOBACCO QUIT 15 YRS OR MORE [facility] Tobacco Use History This section includes a history of the smoking, or tobacco-related health factors, that were collected on or before the date of the Encounter. The data comes from the [place] facility where the Encounter took place. Date/Time Smoking Status/Tobac co Use Comment Facility Dec 21, 2023 11:40 AM VA-TOBACCO QUIT 15 YRS OR MORE [place] [facility] [place] [facility] Oct 31, 2022 11:30 AM VA-TOBACCO FORMER USER [place] [facility] [place] [facility] Oct 31, 2022 11:30 AM VA-TOBACCO QUIT 15 YRS OR MORE [place] [facility] [place] [facility] Sep 17, 2021 03:00 PM VA-TOBACCO FORMER USER [place] [facility] [place] [facility] Sep 17, 2021 03:00 PM VA-TOBACCO QUIT 15 YRS OR MORE [place] [facility] [place] [facility] Aug 15, 2020 10:00 AM VA-TOBACCO FORMER USER [place] [facility] [place] [facility] Aug 15, 2020 10:00 AM VA-TOBACCO QUIT 15 YRS OR MORE [facility] [place] [facility] May 12, 2019 03:07 PM VA-TOBACCO FORMER USER [place] [facility] [place] [facility] May 12, 2019 03:07 PM VA-TOBACCO QUIT 15 YRS OR MORE [facility] May 31, 2018 01:08 PM VA-TOBACCO FORMER USER [place] [facility] May 31, 2018 01:08 PM VA-TOBACCO QUIT 15 YRS OR MORE [place] [facility] Feb 16, 2017 01:33 PM QUIT TOBACCO USE > 7 YEARS AGO quit 16 years ago [facility] Nov 13, 2015 03:48 PM QUIT TOBACCO USE > 7 YEARS AGO . [facility] May 12, 2013 12:49 PM QUIT TOBACCO USE > 7 YEARS AGO quit 2001 [facility] Advance Directives: All historical and current Section Date Range: From patient's date of to the date document was created. This section includes ALL of a patient's completed or amended [place] Advance and Rescinded Directives. The entries below indicate that a directive exists for the patient, but an actual copy is not included with this document. The data comes from all [place] facilities. Date Advance Directives Provider Source Nov 03, [address] [facility] Aug 16, 2020 ADVANCE DIRECTIVE EDMUND MORGAN [facility] Radiology Reports: +/- 30 days of [...] the Encounter. The data comes from all [place] treatment facilities. Date/Time Radiology Report Provider Source Mar 29, 2024 10:17 AM ABDOMINAL ULTRASOUND: CHAR TATE [id number] -1935 M Exm Date: MAR 29, 2024@10:17 Req Phys: KIARA ESPARZA Loc: CWM/NO/SICK CALL PA (Req'g Loc Img Loc: ULTRASOUND Service: [facility] [place] [facility] [place] [address] (Case 109 COMPLETE) ULTRASOUND ABDOMEN LIMITED (US Detailed) CPT:14630 Reason for Study: Liver Clinical History: There is some prominence of the hepatic shadow with a suggested hepatic granuloma on plain film today. Report Status: Verified Date Reported: MAR 29, 2024 Date Verified: MAR 29, 2024 Metal Smelter E-Sig: Report: ULTRASOUND ABDOMEN LIMITED [PRINTSET] HISTORY: Liver COMPARISON: 03/22/2024 abdomen x-ray TECHNIQUE: Ultrasound of the right upper abdomen was performed at the local [place] facility. 34 images were received by the [place] National Teleradiology Program (NTP) for interpretation. FINDINGS: [...] acute cholecystitis. READING PHYSICIAN: Cintia Campbell M.D. -[id number] 03/29/2024 14:38 EDT [facility] Cordiumradiology Program [phone] (For Medical Practitioner Use Only) Attention Patients / Veterans: If you have questions or concerns about these test results, please contact your ordering provider or primary care team. Primary Diagnostic Code: NO ALERT REQUIRED Primary Interpreting Staff: RADIOLOGY,OUTSIDE SERVICE, Staff Physician / RADIOLOGY,OUTSIDE SERVICE [facility] Mar 22, 2024 10:50 AM ABDOMEN (2 VIEWS): CHAR TATE [id number] -1935 M Exm Date: MAR 22, 2024@10:50 Req Phys: TRENTONLILIYA HILTON Pat Loc: CWM/NO/SICK CALL PA (Req'g Loc Img Loc: NHM/BUILDING 1 Service: [place] [address] (Case 98 COMPLETE) ABDOMEN (2 VIEWS) (RAD Detailed) CPT:44434 Reason for Study: constipation x 10 days Clinical History: Report Status: Verified Date Reported: MAR 22, 2024 Date Verified: MAR 22, 2024 Metal Smelter E-Sig: Report: ABDOMEN (2 VIEWS) Clinical History: [...] fecal burden. READING PHYSICIAN: Adrien Rod M.D. -[id number] 03/22/2024 11:23 EDT [facility] National Teleradiology Program [phone] (For Medical Practitioner Use Only) Attention Patients / Veterans: If you have questions or concerns about these test results, please contact your ordering provider or primary care team. Primary Diagnostic Code: NO ALERT REQUIRED Primary Interpreting Staff: RADIOLOGY,OUTSIDE SERVICE, Staff Physician / RADIOLOGY,OUTSIDE SERVICE [facility] Encounter Notes: All associated encounter notes This section contains the clinical notes associated to the Encounter. Date/Time Encounter Note(s) Provider Source Mar 24, 2024 03:05 PM NURSING OUTPATIENT NOTE: LOCAL TITLE: NURSING/SPECIALTY CLINIC NOTE STANDARD TITLE: NURSING OUTPATIENT NOTE DATE OF NOTE: MAR 24, 2024@15:05 ENTRY DATE: MAR 24, 2024@15:05:47 AUTHOR: DONAVAN FLORES EXP COSIGNER: URGENCY: STATUS: COMPLETED seen [facility] for continued foot care. [place] has a history of Thick nails and [...] distal Pedal skin: [x ] Intact [ ] Dry [ ] Cracked [ ] Discolored Webspaces: [x ] Intact [x ] Clean [ ] Soiled [ ] Macerated [ ] Dry Nails: [x ] Thickened [x ] Elongated [x ] Dystrophic [ ] Discolored [ ] Fungal [ ] Incurvated [ ] Subungual debri Hyperkeratosis [ ] Yes, Locations: [x ] No Open lesions/wounds: [ ] Yes, Locations: [x ] No Amputations: [ ] Yes, Locations: [x ] No Edema present: ( x ) Yes Trace edema bilatera ankles ( ) NO Podiatric Problem List: [ ] Diabetes mellitus [ ] Peripheral vascular disease [ ] Neuropathy [ ] Onychomycosis [x ] Dystrophic toenails [ ] Hyperkeratosis/calluses [ ] Xerosis/dry skin [ ] Other: Treatment: [x ] Nails x 10 debrided in length and thickness without incident [ ] Hyperkeratotic lesions were grinded down with eletric wood grinder operator and debrided without incidence. [x ]Patient education educated about proper foot care and encouraged to check feet daily for injuries and wounds [x ] Instructed to moisturize feet daily but not in-between toes Patient is to RTC in 2 months. /elizabeth/ DONAVAN MARK VICTIM WITNESS ADMINISTRATOR LICENSED PRACTICAL NURSE Signed: 03/24/2024 15:08 Receipt Acknowledged By: 03/24/2024 15:44 /es/ KAREN HOUSE DPM PODIATRY ATTENDING DONAVAN FLORESRKerry COATS [facility]
--- OUTSIDE RECORDS SUMMARY | 2024-05-16 14:07 | XMS_ITS ---
Author Name [facility] [place] Address [address] [place] [address] Care Team Providers Care Chemistry Physics Teacher Name Role Phone KIARA ESPARZA Primary Care [...] Name Patient's Relationship to Policy Colbert [facility] (WNR) MEDICARE ADVANTAGE [facility] (WNR) Jun 01, 2017 [id number] [phone] Krishan TATE PATIENT [facility] (WNR) MEDICARE ADVANTAGE [facility] (WNR) Jun 01, 2017 [id number] Krishan TATE PATIENT [facility]IC[facility] ADVANTAGE [facility] (WNR) Jun 01, 2017 [id number] [phone] Krishan TATE PATIENT Selected Encounter This section includes the information on record at [place] for the Encounter. Date/Time Encounter Type Encounter Description Reason Provider Source Mar 22, 2024 10:30 AM NURSING ASSESSMENT/EVALU ATN PRIMARY CARE/MEDICINE ICD-10-CM R19.4 Change in bowel habit JANES DALLAS [facility] Encounter Template Text not used by [place] Assessments - Encounter Diagnoses This section includes the primary and secondary diagnoses documented for the Encounter. Date/Time Primary/Secondary Diagnosis Diagnosis Name Provider Source Mar 22, 2024 10:36 AM PRIMARY Change in bowel habit TEDDY DALLAS [facility] [place] [facility] Mar 22, 2024 10:36 AM SECONDARY Constipation, unspecified TEDDY DALLAS [facility] [place] [facility] Plan of Treatment: Future Appointments (+ 6 months) and Future Tests (+/- 45 days) The Plan of Treatment section includes future care activities for the patient from all [place] treatmentfaselect specialty hospitalities. This section includes future appointments and future orders which are active, pending or scheduled. Future Appointments This section includes appointments that were scheduled to occur 6 months from the date of the Encounter, up to a maximum of 20 appointments. The data comes from all [place] treatment facilities. Appointment Date/Time Appointment Type Appointme nt Facility Name Mar 24, 2024 02:30 PM AMBULATORY - MEDICINE [facility] [place] [facility] Mar 29, 2024 10:30 AM AMBULATORY - NONE [facility] [place] [facility] Apr 07, 2024 08:00 AM AMBULATORY - MEDICINE [facility] [place] [facility] Apr 20, 2024 10:40 AM AMBULATORY - MEDICINE [facility] [place] [facility] May 09, 2024 10:30 AM AMBULATORY - MEDICINE [facility] [place] [facility] May 16, 2024 02:15 PM AMBULATORY - MEDICINE [facility] [place] [facility] Jun 03, 2024 03:00 PM AMBULATORY - MEDICINE [facility] [place] [facility] Jun 16, 2024 02:30 PM AMBULATORY - MEDICINE [facility] [place] [facility] Jun 22, 2024 10:50 AM AMBULATORY - MEDICINE [facility] [place] [facility] Aug 05, 2024 11:00 AM AMBULATORY - MEDICINE [facility] Aug 19, 2024 11:00 AM AMBULATORY - MEDICINE [facility] Sep 13, 2024 11:00 AM AMBULATORY - MEDICINE [facility] Sep 13, 2024 11:30 AM AMBULATORY - MEDICINE [facility] Active, Pending, and Scheduled Orders This section includes a listing of several types of active, pending, and scheduled orders, including clinic medications orders, diagnostic test orders, procedure orders and consult orders; where the start date of the order is 45 days before the date of the Encounter or 45 days after the date of theEncounter. The data comes from all [place] treatment facilities. Test Date/Time Test Type Test Details Facility Name Mar 31, 2024 08:02 AM Consult Order [facility]Y Cons Liquid Waste Treatment Plant Operator's Choice [facility] Vital Signs: All taken on the encounter date This section contains inpatient and outpatient Vital Signs collected on the date of the Encounter. Date/Time Temperature Pulse Blood Pressure Respiratory Rate SP02 Pain Height Weight Body Mass Index Source Mar 22, 2024 10:28 AM 97.6 58 159/66 18 94 1 [facility] Social History: Smoking Status (Most current) and Tobacco Use (All prior to encounter date) This section includes the most current, and the historical, smoking and tobacco- related health factors from the [place] facility where the Encounter took place. Current Smoking Status This section includes the most current smoking, or tobacco-related health factor, from the [place] facility where the Encounter took place. Date/Time Current Smoking Status Comment Facil it Dec 21, 2023 11:40 AM UT-TOBACCO QUIT 15 YRS OR MORE [facility] Tobacco Use History This section includes a history of the smoking, or tobacco-related health factors, that were collected on or before the date of the Encounter. The data comes from the [place] facility where the Encounter took place. Date/Time Smoking Status/Tobac co Use Comment Facility Dec 21, 2023 11:40 AM UT-TOBACCO QUIT 15 YRS OR MORE [facility] Oct 31, 2022 11:30 AM VA-TOBACCO FORMER USER [facility] [place] [facility] Oct 31, 2022 11:30 AM VA-TOBACCO QUIT 15 YRS OR MORE [facility] [place] [facility] Sep 17, 2021 03:00 PM VA-TOBACCO FORMER USER [facility] [place] [facility] Sep 17, 2021 03:00 PM VA-TOBACCO QUIT 15 YRS OR MORE [facility] [place] [facility] Aug 15, 2020 10:00 AM VA-TOBACCO FORMER USER [facility] [place] [facility] Aug 15, 2020 10:00 AM VA-TOBACCO QUIT 15 YRS OR MORE [facility] [place] [facility] May 12, 2019 03:07 PM VA-TOBACCO FORMER USER [facility] [place] [facility] May 12, 2019 03:07 PM VA-TOBACCO QUIT 15 YRS OR MORE [facility] [place] [facility] May 31, 2018 01:08 PM VA-TOBACCO FORMER USER [facility] [place] [facility] May 31, 2018 01:08 PM VA-TOBACCO QUIT 15 YRS OR MORE [facility] [place] [facility] Feb 16, 2017 01:33 PM QUIT TOBACCO USE > 7 YEARS AGO quit 16 years ago [facility] [place] [facility] Nov 13, 2015 03:48 PM QUIT TOBACCO USE > 7 YEARS AGO . [facility] [place] [facility] May 12, 2013 12:49 PM QUIT TOBACCO USE > 7 YEARS AGO quit 2001 [facility] [place] [facility] Advance Directives: All historical and current Section Date Range: From patient's date of to the date document was created. This section includes ALL of a patient's completed or amended [place] Advance and Rescinded Directives. The entries below indicate that a directive exists for the patient, but an actual copy is not included with this document. The data comes from all [place] facilities. Date Advance Directives Provider Source Nov 03, 2022 ADVANCE DIRECTIVE LENORA CARCAMO [facility] [place] [facility] Aug 16, 2020 ADVANCE DIRECTIVE EDMUND MORGAN [facility] Radiology Reports: +/- 30 days of the [...] the Encounter. The data comes from all [place] treatment facilities. Date/Time Radiology Report Provider Source Mar 29, 2024 10:17 AM ABDOMINAL ULTRASOUND: CHAR TATE EDWAR [id number] -[id number] M Exm Date: MAR 29, 2024@10:17 Req Phys: KIARA ESPARZA Loc: CWM/NO/SICK CALL PA (Req'g Loc Img Loc: ULTRASOUND Service: [place] [address] (Case [id number] COMPLETE) ULTRASOUND ABDOMEN LIMITED (US Detailed) CPT:65135 Reason for Study: Liver Clinical History: There is some prominence of the hepatic shadow with a suggested hepatic granuloma on plain film today. Report Status: Verified Date Reported: MAR 29, 2024 Date Verified: MAR 29, 2024 Drug Inspector E-Sig: Report: ULTRASOUND ABDOMEN LIMITED [PRINTSET] HISTORY: Liver COMPARISON: 03/22/2024 abdomen x-ray TECHNIQUE: Ultrasound of the right upper abdomen was [facility] the local [facility]. 34 images were received by the [facility] (NTP) for interpretation. FINDINGS: [...] acute cholecystitis. READING PHYSICIAN: Cintia Campbell M.D. -[id number] 03/29/2024 14:38 EDT [facility] NeuroSigmaradiology Program [phone] (For Medical Practitioner Use Only) Attention Patients / Veterans: If you have questions or concerns about these test results, please contact your ordering provider or primary care team. Primary Diagnostic Code: NO ALERT REQUIRED Primary Interpreting Staff: RADIOLOGY,OUTSIDE SERVICE, Staff Physician / RADIOLOGY,OUTSIDE SERVICE [facility] Mar 22, 2024 10:50 AM ABDOMEN (2 VIEWS): LEACHAR [facility] [id number] -[id number] M [facility] Date: MAR 22, 2024@10:50 Req Phys: LILIYA CHOWDHURY Pat Loc: CWM/NO/SICK CALL PA (Req'g Loc Img Loc: [facility]/BUILDING 1 Service: [place] [address] (Case [id number] COMPLETE) ABDOMEN (2 VIEWS) (RAD Detailed) CPT:71062 Reason for Study: constipation x 10 days Clinical History: Report Status: Verified Date Reported: MAR 22, 2024 Date Verified: MAR 22, 2024 Drug Inspector E-Sig: Report: ABDOMEN (2 VIEWS) Clinical History: [...] fecal burden. READING PHYSICIAN: Adrien Rod M.D. -[id number] 03/22/2024 11:23 EDT [facility] NeuroSigmaradiology Program [phone] (For Medical Practitioner Use Only) Attention Patients / Veterans: If you have questions or concerns about these test results, please contact your ordering provider or primary care team. Primary Diagnostic Code: NO ALERT REQUIRED Primary Interpreting Staff: RADIOLOGY,OUTSIDE SERVICE, Staff Physician / RADIOLOGY,OUTSIDE SERVICE [facility] Encounter Notes: All associated encounter notes This section contains the clinical notes associated to the Encounter. Date/Time Encounter Note(s) Provider Source Mar 22, 2024 10:31 AM PRIMARY CARE NOTE: LOCAL TITLE: WALK-IN NOTE PRIMARY CARE (T) STANDARD TITLE: PRIMARY CARE NOTE DATE OF NOTE: MAR 22, 2024@10:31 ENTRY DATE: MAR 22, 2024@10:31:34 AUTHOR: JANES DALLAS COSIGNER: URGENCY: STATUS: COMPLETED <====Click to Start Nurse Data: 88year old MALE reports to Primary Care clinic for Walk-In visit. Today Vet walks in to clinic with complaint of constipation for 10 days. [place] stopped his iron 7 days ago and started taking Colace/Dulcolax after no BM. I have been like clockwork every morning for 87 years . Reports some small results on Thursday and Thursday, 3 in soft BM and/or small round hard. No pain but uncomfortable. BP high in clinic which he says it always is when he comes here, BP at home last night 121/56. Last recorded Vital Signs are: Temperature:97.6 F [36.4 C] (03/22/2024 10:28) Pulse:58 (03/22/2024 10:28) Blood Pressure:159/66 (03/22/2024 10:28) Respiration:18 (03/22/2024 10:28) Pain:1 (03/22/2024 10:28) Vet reports current allergies are: Remote Allergy Data No Remote Allergy/ADR Data available for this patient Current Medications from Active Med list include: Active Outpatient Medications (including Supplies): Active Outpatient Medications Status 1) AMMONIUM LACTATE 12% LOTION APPLY MODERATE AMOUNT ACTIVE TOPICALLY ONCE DAILY FOR DRY IRRITATED SKIN 2) CAPSAICIN 0.025% CREAM APPLY A THIN LAYER TOPICALLY ACTIVE TWICE DAILY NEEDED FOR LOCALIZED PAIN FOR KNEES 3) CARBOXYMETHYLCELLULOSE NA 0.5% OPH SOLN INSTILL 1 ACTIVE DROP INTO EACH EYE FOUR TIMES DAILY NEEDED FOR DRYNESS 4) EYELID CLEANSER,EYE SCRUB PAD USE 1 PAD TOPICALLY ACTIVE ONCE DAILY BLEPHARITIS 5) FERROUS SULFATE 325MG TAB TAKE ONE TABLET BY MOUTH ACTIVE ONCE DAILY TO SUPPLEMENT IRON 6) HYLAN G-F20 48MG/6ML INJ SYRINGE 6ML INJECT 48MG/6ML ACTIVE INTRA-ARTICULAR NEEDED FOR OSTEOARTHRITIS OF THE KNEE DIRECTED BY PROVIDER 7) HYPROMELLOSE 0.3% OPH GEL APPLY 1 TO 2 DROPS INTO ACTIVE EACH EYE AT BEDTIME FOR DRY EYE 8) LATANOPROST 0.005% OPH SOLN INSTILL 1 DROP INTO EACH ACTIVE EYE AT BEDTIME FOR INCREASED PRESSURE IN THE EYE 9) METOPROLOL TARTRATE 50MG TAB TAKE ONE TABLET BY MOUTH ACTIVE TWICE DAILY FOR BLOOD PRESSURE/HEART 10) OMEPRAZOLE 20MG EC CAP TAKE ONE CAPSULE BY MOUTH ACTIVE (S) EVERY MORNING 30 MINUTES BEFORE BREAKFAST 11) ROSUVASTATIN CA 40MG TAB TAKE ONE TABLET BY MOUTH ACTIVE (S) ONCE DAILY FOR CHOLESTEROL 12) TAMSULOSIN HCL 0.4MG CAP TAKE ONE CAPSULE BY MOUTH ACTIVE ONCE DAILY FOR ENLARGED PROSTATE Active Non-VA Medications Status 1) Non-VA ACETAMINOPHEN TAB 1300 BY MOUTH EVERY MORNING ACTIVE AND 650MG BY MOUTH EVERY EVENING 2) Non-VA ASPIRIN 81MG EC TAB 81MG BY MOUTH DAILY ACTIVE 3) Non-VA MULTIVITAMIN/MINERALS CAP/TAB 1 TABLET BY ACTIVE MOUTH EVERY MORNING 15 Total Medications Action: Recommended sick call provider visit for evaluation. Reminders Influenza Immunization DUE NOW Medication Reconciliation DUE NOW COVID-19 Immunization DUE NOW RHS Screen DUE NOW (Optional) Whole Health Documentation DUE NOW Response: Understood and agreed to plan. /es/ JANES M FREEDMAN, RN REGISTERED NURSE Signed: 03/22/2024 10:36 JANES DALLAS [facility]
--- OUTSIDE RECORDS SUMMARY | 2024-05-16 14:07 | XMS_ITS | Encounter Summary ---
Author Name [facility] [place] Organization [place] Address [address] [place] [address] Care Team Providers Care Av[employer] Engineer Name Role Phone KIARA ESPARZA Primary Care [...] Colbert's Name Patient's Relationship to Policy Colbert [facility] (WNR) MEDICARE [facility] (WNR) Jun 01, 2017 [id number] [phone] 23 Krishan TATE PATIENT [facility] (WNR) MEDICARE [facility] (WNR) Jun 01, 2017 [id number] [phone] 23 Krishan TATE PATIENT [facility] (WNR) MEDICARE ADVANTAGE [facility] (WNR) Jun 01, 2017 [id number] [phone] 23 Krishan TATE PATIENT Selected Encounter This section includes the information on record at [place] for the Encounter. Date/Time Encounter Type Encounter Description Reason Pro vider Source Feb 16, 2024 12:35 PM Outpatient Encounter OPTOMETRY IHE Encounter Template Text not used by [place] Plan of Treatment: Future Appointments (+ 6 [...] - MEDICINE [facility] [place] [facility] Mar 22, 2024 10:31 AM AMBULATORY - MEDICINE [facility] [place] [facility] Mar 24, 2024 02:30 PM AMBULATORY - MEDICINE [facility] [place] [facility] Mar 29, 2024 10:30 AM AMBULATORY - NONE [facility] [place] [facility] Apr 07, 2024 08:00 AM AMBULATORY - MEDICINE [facility] [place] [facility] Apr 20, 2024 10:40 AM AMBULATORY - MEDICINE [facility] [place] [facility] May 09, 2024 10:30 AM AMBULATORY - MEDICINE [facility] [place] [facility] May 16, 2024 02:15 PM AMBULATORY - MEDICINE [facility] [place] [facility] Jun 03, 2024 03:00 PM AMBULATORY - MEDICINE [facility] [place] [facility] Jun 16, 2024 02:30 PM AMBULATORY - MEDICINE [facility] [place] [facility] Jun 22, 2024 10:50 AM AMBULATORY - MEDICINE [facility] [place] [facility] Aug 05, 2024 11:00 AM AMBULATORY - MEDICINE [facility] [facility] Active, Pending, and Scheduled Orders This section includes a listing of several types of active, pending, and scheduled orders, including clinic medications orders, diagnostic test orders, procedure orders and consult orders; where the start date of the order is 45 days before the date of the Encounter or 45 days after the date of theEncounter. The data comes from all [place] treatment facilities. Test Date/Time Test Type Test Details Facility Name Mar 31, 2024 08:02 AM Consult Order [facility]-NEUROLOGY Cons Cook Mayonnaise's Choice [facility] Lab Results: +/- 30 days of [...] AM Reporting Lab: [facility] [address] [address] Performing Lab: [facility] [address] [address] VITAMIN D (25-OH) 40 ng/mL 20-50 Jan 18, 2024 09:04 AM [facility] LIPID PANEL FASTING Specimen Type: SERUM No comment entered. Ordering Provider: STEVE ESPARZA Report Released Date/Time: Sep 28, 2023 11:20 AM Reporting Lab: [facility] [address] [address] Performing Lab: [facility] [address] [address] CHOLESTEROL 107 mg/dL TRIGLYCERIDE 225 mg/dL H 0-150 LDL calculated 33 mg/dL 0-129 CHOL/HDL 3.7 HDL CHOLESTEROL 29 mg/dL L 40-60 Jan 18, 2024 09:04 AM [facility] BASIC METABOLIC PANEL (fasting) Specimen Type: SERUM No comment entered. Ordering Provider: STEVE ESPARZA Report Released Date/Time: Sep 28, 2023 11:20 AM Reporting Lab: [facility] [address] [address] Performing Lab: [address] [address] UREA NITROGEN 17 mg/dL 7-25 GLUCOSE 93 mg/dL 65-100 SODIUM 141 mmol/L 135-145 POTASSIUM 4.7 mmol/L 3.5-5.0 CHLORIDE 109 mmol/L 100-110 CO2 25 meq/L 20-30 CREATININE, Serum 0.86 mg/dL 0.50-1.40 eGFR(CKD-EPI 2020) 84 mL/min >60 Jan 18, 2024 09:04 AM [facility] LIVER FUNCTION Specimen Type: SERUM No comment entered. Ordering Provider: STEVE ESPARAZ Report Released Date/Time: Sep 28, 2023 11:20 AM Reporting Lab: [address] [address] Performing Lab: [address] [address] PROTEIN,TOTAL 6.1 g/dL 6.0-8.3 ALBUMIN 3.9 g/dL [...] took place. Date/Time Current Smoking Status Comment [facility] Dec 21, 2023 11:40 [...] AM VA-TOBACCO QUIT 15 YRS OR MORE [facility] [place] [facility] Oct 31, 2022 11:30 AM VA-TOBACCO FORMER USER [facility] [place] [facility] Oct 31, 2022 11:30 AM VA-TOBACCO QUIT 15 YRS OR MORE [facility] [place] [facility] Sep 17, 2021 03:00 PM VA-TOBACCO FORMER USER [facility] [place] [facility] Sep 17, 2021 03:00 PM VA-TOBACCO QUIT 15 YRS OR MORE [facility] [place] [facility] Aug 15, 2020 10:00 AM VA-TOBACCO FORMER USER [facility] [place] [facility] Aug 15, 2020 10:00 AM VA-TOBACCO QUIT 15 YRS OR MORE [facility] [place] [facility] May 12, 2019 03:07 PM VA-TOBACCO FORMER USER [facility] [place] [facility] May 12, 2019 03:07 PM VA-TOBACCO QUIT 15 YRS OR MORE [facility] [place] [facility] May 31, 2018 01:08 PM VA-TOBACCO FORMER USER [facility] [place] [facility] May 31, 2018 01:08 PM VA-TOBACCO QUIT 15 YRS OR MORE [facility] [place] [facility] Feb 16, 2017 01:33 PM QUIT TOBACCO USE > 7 YEARS AGO quit 16 years ago [facility] [place] [facility] Nov 13, 2015 03:48 PM QUIT TOBACCO USE > 7 YEARS AGO . [facility] [place] [facility] May 12, 2013 12:49 PM QUIT TOBACCO USE > 7 YEARS AGO quit 2001 [facility] [place] [facility] Advance Directives: All historical and [...] Nov 03, 2022 ADVANCE DIRECTIVE LENORA CARCAMO [facility] [place] [facility] Aug 16, 2020 ADVANCE DIRECTIVE EDMUND MORGAN [facility] Encounter Notes: All associated encounter notes This section contains the clinical notes associated to the Encounter. Date/Time Encounter Note(s) Provider Source Feb 16, 2024 12:35 PM OPTOMETRY NOTE: LOCAL TITLE: OPTOMETRY NOTE STANDARD TITLE: OPTOMETRY NOTE DATE OF NOTE: FEB 16, 2024@12:35 ENTRY DATE: FEB 16, 2024@12:35:47 AUTHOR: SIDDHARTH GUO EXP COSIGNER: URGENCY: STATUS: COMPLETED Adjusted one pair today. /elizabeth/ SIDDHARTH GUO LINING VAMPER Signed: 02/16/2024 12:35 Receipt Acknowledged By: 02/16/2024 12:44 /elizabeth/ Lauren Albrecht LPN Licensed Practical Nurse SIDDHARTH GUO [facility]
--- OUTSIDE RECORDS SUMMARY | 2024-05-16 14:07 | XMS_ITS ---
Author Name [facility] [place] [facility] [place] Address [address] [place] [address] Care Team Providers Care Counter Supply Worker Name Role Phone KIARA ESPARZA Primary Care [...] Colbert's Name Patient's Relationship to Policy Colbert [facility] (WNR) MEDICARE ADVANTAGE [facility] (WNR) Jun 01, 2017 [id number] [phone] Krishan TATE PATIENT [facility] (WNR) MEDICARE ADVANTAGE [facility] (WNR) Jun 01, 2017 [id number] Krishan TATE PATIENT [facility] (WNR) MEDICARE ADVANTAGE [facility] (WNR) Jun 01, 2017 [id number] [phone] Krishan TATE PATIENT Selected Encounter This section includes the information on record at [place] for the Encounter. Date/Time Encounter Type Encounter Description Reason Pro vider Source Mar 21, 2024 10:10 AM Outpatient Encounter PM&RS PHYSICIAN IHE Encounter [...] - MEDICINE [place] [facility] [facility] Mar 22, 2024 10:31 AM AMBULATORY - MEDICINE [place] [facility] [place] [facility] Mar 24, 2024 02:30 PM AMBULATORY - MEDICINE [place] [facility] [place] [facility] Mar 29, 2024 10:30 AM AMBULATORY - NONE [place] [facility] [facility] Apr 07, 2024 08:00 AM AMBULATORY - MEDICINE [place] [facility] [place] [facility] Apr 20, 2024 10:40 AM AMBULATORY - MEDICINE [place] [facility] [place] [facility] May 09, 2024 10:30 AM AMBULATORY - MEDICINE [place] [facility] [place] [facility] May 16, 2024 02:15 PM AMBULATORY - MEDICINE [place] [facility] [place] [facility] Jun 03, 2024 03:00 PM AMBULATORY - MEDICINE [place] [facility] [place] [facility] Jun 16, 2024 02:30 PM AMBULATORY - MEDICINE [place] [facility] [place] [facility] Jun 22, 2024 10:50 AM AMBULATORY - MEDICINE [place] [facility] [place] [facility] Aug 05, 2024 11:00 AM AMBULATORY - MEDICINE [place] [facility] [place] [facility] Aug 19, 2024 11:00 AM AMBULATORY - MEDICINE [place] [facility] [place] [facility] Sep 13, 2024 11:00 AM AMBULATORY - MEDICINE [place] [facility] [place] [facility] Sep 13, 2024 11:30 AM [facility] [place] [facility] Active, Pending, and Scheduled Orders This section [...] 08:02 AM Consult Order COMMUNITY CARE-NEUROLOGY Cons [employer] [place] [facility] [facility] Social History: Smoking Status (Most current) and [...] took place. Date/Time Current Smoking Status Comment [facility] Dec 21, 2023 11:40 AM VA-TOBACCO QUIT 15 YRS OR MORE [place] [facility] Tobacco Use History This section includes a history of the smoking, or tobacco-related health factors, that were collected on or before the date of the Encounter. The data comes from the [place] facility where the Encounter took place. Date/Time Smoking Status/Tobac co Use Comment Facility Dec 21, 2023 11:40 AM VA-TOBACCO QUIT 15 YRS OR MORE [place] [facility] [facility] Oct 31, 2022 11:30 AM VA-TOBACCO FORMER USER [place] [facility] [place] [facility] Oct 31, 2022 11:30 AM VA-TOBACCO QUIT 15 YRS OR MORE [place] [facility] [facility] Sep 17, 2021 03:00 PM VA-TOBACCO FORMER USER [place] [facility] [facility] Sep 17, 2021 03:00 PM VA-TOBACCO QUIT 15 YRS OR MORE [place] [facility] [facility] Aug 15, 2020 10:00 AM VA-TOBACCO FORMER USER [place] [facility] [facility] Aug 15, 2020 10:00 AM VA-TOBACCO QUIT 15 YRS OR MORE [place] [facility] [facility] May 12, 2019 03:07 PM VA-TOBACCO FORMER USER [place] [facility] [facility] May 12, 2019 03:07 PM VA-TOBACCO QUIT 15 YRS OR [facility] May 31, 2018 01:08 PM VA-TOBACCO FORMER USER [place] [facility] May 31, 2018 01:08 PM VA-TOBACCO QUIT 15 YRS OR MORE [place] [facility] Feb 16, 2017 01:33 PM QUIT TOBACCO USE > 7 YEARS AGO quit 16 years ago [facility] Nov 13, 2015 03:48 PM QUIT TOBACCO USE > 7 YEARS AGO . [facility] May 12, 2013 12:49 PM QUIT TOBACCO USE > 7 YEARS AGO quit [facility] Advance Directives: All historical and current [...] Provider Source Nov 03, 2022 ADVANCE DIRECTIVE CARLSO ALBERTOLENORA [facility] Aug 16, 2020 ADVANCE DIRECTIVE EDMUND M[facility]GAN [facility] Radiology Reports: +/- 30 days of [...] 2024 10:17 AM ABDOMINAL ULTRASOUND: CHAR TATE [id number] -[id number] M Exm Date: MAR 29, 2024@10:17 Req Phys: KIARA ESPARZA Ari Anne Loc: CWM/NO/SICK CALL PA (Req'g Loc Img Loc: ULTRASOUND Service: Unknown [facility] SUZANNE [facility] [place] [address] (Case [id number] COMPLETE) ULTRASOUND ABDOMEN LIMITED (US Detailed) CPT:09043 Reason for Study: Liver Clinical History: There is some prominence of the hepatic shadow with a suggested hepatic granuloma on plain film today. Report Status: Verified Date Reported: MAR 29, 2024 Date Verified: MAR 29, 2024 Carrier Blower E-Sig: Report: ULTRASOUND ABDOMEN LIMITED [PRINTSET] HISTORY: [...] acute cholecystitis. READING PHYSICIAN: Cintia Campbell M.D. -[id number] 03/29/2024 14:38 EDT [facility] Electronic Compliance Solutionsradiology Program [phone] (For Medical Practitioner Use Only) Attention Patients / Veterans: If you have questions or concerns about these test results, please contact your ordering provider or primary care team. Primary Diagnostic Code: NO ALERT REQUIRED Primary Interpreting Staff: RADIOLOGY,OUTSIDE SERVICE, Staff Physician / RADIOLOGY,OUTSIDE SERVICE [facility] Mar 22, 2024 10:50 AM ABDOMEN (2 VIEWS): CHAR TATE [id number] -[id number] M Exm Date: MAR 22, 2024@10:50 Req Phys: LILIYA CHOWDHURY Pat Loc: CWM/NO/SICK CALL PA (Req'g Loc Img Loc: NHM/BUILDING 1 Service: [place] [address] (Case [id number] COMPLETE) ABDOMEN (2 VIEWS) (RAD Detailed) CPT:55260 Reason for Study: constipation x 10 days Clinical History: Report Status: Verified Date Reported: MAR 22, 2024 Date Verified: MAR 22, 2024 Carrier Blower E-Sig: Report: ABDOMEN (2 VIEWS) Clinical History: [...] fecal burden. READING PHYSICIAN: Adrien Rod M.D. -[id number] 03/22/2024 11:23 EDT [facility] National Teleradiology Program [phone] (For Medical Practitioner Use Only) Attention Patients / Veterans: If you have questions or concerns about these test results, please contact your ordering provider or primary care team. Primary Diagnostic Code: NO ALERT REQUIRED Primary Interpreting Staff: RADIOLOGY,OUTSIDE SERVICE, Staff Physician / RADIOLOGY,OUTSIDE SERVICE [facility] Encounter Notes: All associated encounter notes This section contains the clinical notes associated to the Encounter. Date/Time Encounter Note(s) Provider Source Mar 21, 2024 10:11 AM NURSING TELEPHONE ENCOUNTER NOTE: LOCAL TITLE: NURSING/OUTPATIENT TELEPHONE FOLLOW UP STANDARD TITLE: NURSING TELEPHONE ENCOUNTER NOTE DATE OF NOTE: MAR 21, 2024@10:11 ENTRY DATE: MAR 21, 2024@10:11:22 AUTHOR: CHLOÉ ROSENBERG EXP COSIGNER: URGENCY: STATUS: COMPLETED NURSING/OUTPATIENT TELEPHONE FOLLOW UP Has ADDENDA [place] left a message that he would like to see Karols for carpal tunnel injection again, can you please assist in scheduling, RTC entered. /shakir Rosenberg RN Med Rehab Signed: 03/21/2024 10:12 Receipt Acknowledged By: 03/21/2024 11:52 /shakir ESPINO ADVANCED PAINT POURER 03/21/2024 ADDENDUM STATUS: COMPLETED Called and scheduled for 04/29/2024 at 930am. /shakir ESPINO ADVANCED PAINT POURER Signed: 03/21/2024 11:54 CHLOÉ ROSENBERG [place] [facility]
--- OUTSIDE RECORDS SUMMARY | 2024-05-16 14:08 | XMS_ITS | Encounter Summary ---
Author Name [facility] [facility] [place] [facility] [place] Address [address] [place] [address] Care Team Providers Care News Video Editor Name Role Phone KIARA ESPARZA Primary Care [...] Colbert's Name Patient's Relationship to Policy Colbert [facility] (WNR) MEDICARE ADVANTAGE [facility] (WNR) Jun 01, 2017 [id number] Krishan TATE PATIENT [facility] (WNR) MEDICARE ADVANTAGE [facility] (WNR) Jun 01, 2017 [id number] Krishan TATE PATIENT [facility] (WNR) MEDICARE ADVANTAGE [facility] (WNR) Jun 01, 2017 [id number] [phone] Krishan TATE PATIENT Selected Encounter This section includes the information on record at [place] for the Encounter. Date/Time Encounter Type Encounter Description Reason Pro vider Source Mar 30, 2024 10:36 AM Outpatient Encounter PM&RS PHYSICIAN IHE Encounter Template Text not used by [place] Plan of Treatment: Future Appointments (+ 6 months) and Future Tests (+/- 45 days) The Plan of Treatment section includes future care activities for the patient from all [place] [facility] This section includes future appointments and future orders which are active, pending or scheduled. Future Appointments This section includes appointments that were scheduled to occur 6 months from the date of the Encounter, up to a maximum of 20 appointments. The data comes from all [place] treatment facilities. Appointment Date/Time Appointment Type Appointme nt Facility Name Apr 07, 2024 08:00 AM AMBULATORY - MEDICINE [place] [facility] Apr 20, 2024 10:40 AM AMBULATORY - MEDICINE [place] [facility] May 09, 2024 10:30 AM AMBULATORY - MEDICINE [place] [facility] May 16, 2024 02:15 PM AMBULATORY - MEDICINE [place] [facility] Jun 03, 2024 03:00 PM AMBULATORY - MEDICINE [place] [facility] Jun 16, 2024 02:30 PM AMBULATORY - MEDICINE [place] [facility] Jun 22, 2024 10:50 AM AMBULATORY - MEDICINE [place] [facility] Aug 05, 2024 11:00 AM AMBULATORY - MEDICINE [place] [facility] Aug 19, 2024 11:00 AM AMBULATORY - MEDICINE [place] [facility] Sep 13, 2024 11:00 AM AMBULATORY - MEDICINE [place] [facility] [facility] Sep 13, 2024 11:30 AM AMBULATORY - MEDICINE [place] [facility] [place] [facility] Active, Pending, and Scheduled Orders This section includes a listing of several types of active, pending, and scheduled orders, including clinic medications orders, diagnostic test orders, procedure orders and consult orders; where the start date of the order is 45 days before the date of the Encounter or 45 days after the date of theEncounter. The data comes from all [place] treatment facilities. Test Date/Time Test Type Test Details Facility Name Mar 31, 2024 08:02 AM Consult Order COMMUNITY CARE-NEUROLOGY Cons Mining Detail [employer] [place] [facility] [facility] May 09, 2024 11:19 AM Consult Order COMMUNITY CARE-CARDIOLOGY Cons Mining Detail [employer] [place] [facility] [facility] Social History: Smoking Status (Most current) and Tobacco Use (All prior to encounter date) This section includes the most current, and the historical, smoking and tobacco- related health factors from the [place] facility where the Encounter took place. Current Smoking Status This section includes the most current smoking, or tobacco-related health factor, from the [place] facility where the Encounter took place. Date/Time Current Smoking Status Comment [facility] Dec 21, 2023 11:40 AM VA-TOBACCO QUIT 15 YRS OR MORE [place] [facility] [facility] Tobacco Use History This section includes a history of the smoking, or tobacco-related health factors, that were collected on or before the date of the Encounter. The data comes from the [place] facility where the Encounter took place. Date/Time Smoking Status/Tobac co Use Comment [facility] Dec 21, 2023 11:40 AM VA-TOBACCO QUIT 15 YRS OR MORE [place] [facility] [place] [place] [facility] Oct 31, 2022 11:30 AM VA-TOBACCO FORMER USER [place] [facility] [place] [facility] Oct 31, 2022 11:30 AM VA-TOBACCO QUIT 15 YRS OR MORE [place] [facility] [place] [facility] Sep 17, 2021 03:00 PM VA-TOBACCO FORMER USER [place] [facility] [place] [facility] Sep 17, 2021 03:00 PM VA-TOBACCO QUIT 15 YRS OR MORE [place] [facility] [place] [facility] Aug 15, 2020 10:00 AM VA-TOBACCO FORMER USER [place] [facility] [place] [facility] Aug 15, 2020 10:00 AM VA-TOBACCO QUIT 15 YRS OR MORE [place] [facility] [place] [facility] May 12, 2019 03:07 PM VA-TOBACCO FORMER USER [place] [facility] [place] [facility] May 12, 2019 03:07 PM VA-TOBACCO QUIT 15 YRS OR MORE [place] [facility] [place] [facility] May 31, 2018 01:08 PM VA-TOBACCO FORMER USER [facility] May 31, 2018 01:08 PM VA-TOBACCO QUIT 15 YRS OR MORE [facility] Feb 16, 2017 01:33 PM QUIT TOBACCO USE > 7 YEARS AGO quit 16 years ago [facility] Nov 13, 2015 03:48 PM QUIT TOBACCO USE > 7 YEARS AGO . [facility] May 12, 2013 12:49 PM QUIT TOBACCO USE > 7 YEARS AGO quit 2001 [facility] Advance Directives: All historical and current Section Date Range: From patient's date of to the date document was created. This section includes ALL of a patient's completed or amended [place] Advance and Rescinded Directives. The entries below indicate that a directive exists for the patient, but an actual copy is not included with this document. The data comes from all [place] facilities. Date Advance Directives Provider Source Nov 03, 2022 ADVANCE DIRECTIVE LENORA CARCAMO [facility] Aug 16, 2020 ADVANCE DIRECTIVE EDMUND MORGAN [facility] Radiology Reports: +/- 30 days of the [...] the Encounter. The data comes from all [place] treatment facilities. Date/Time Radiology Report Provider Source Mar 29, 2024 10:17 AM ABDOMINAL ULTRASOUND: CHAR TATE [id number] -[id number] M Ex Date: MAR 29, 2024@10:17 Req Phys: KIARA ESPARZA Loc: CWM/NO/SICK CALL PA (Req'g Loc Img Loc: ULTRASOUND Service: [place] [address] (Case [id number] COMPLETE) ULTRASOUND ABDOMEN LIMITED (US Detailed) CPT:22279 Reason for Study: Liver Clinical History: There is some prominence of the hepatic shadow with a suggested hepatic granuloma on plain film today. Report Status: Verified Date Reported: MAR 29, 2024 Date Verified: MAR 29, 2024 Endodontics Dentist E-Sig: Report: ULTRASOUND ABDOMEN LIMITED [PRINTSET] HISTORY: Liver COMPARISON: 03/22/2024 abdomen x-ray TECHNIQUE: Ultrasound of the right upper abdomen was performed at the local [place] facility. 34 images were received by the [place] National Teleradiology Program (NTP) for interpretation. FINDINGS: [...] acute cholecystitis. READING PHYSICIAN: Cintia Campbell M.D. -[id number] 03/29/2024 14:38 EDT [facility] National Teleradiology Program [phone] (For Medical Practitioner Use Only) Attention Patients / Veterans: If you have questions or concerns about these test results, please contact your ordering provider or primary care team. Primary Diagnostic Code: NO ALERT REQUIRED Primary Interpreting Staff: RADIOLOGY,OUTSIDE SERVICE, Staff Physician / RADIOLOGY,OUTSIDE SERVICE [place] [facility] [place] [facility] Mar 22, 2024 10:50 AM ABDOMEN (2 VIEWS): CHAR TATE [facility] [id number] -[id number] M Exm Date: MAR 22, 2024@10:50 Req Phys: LILIYA CHOWDHURY Pat Loc: CWM/NO/SICK CALL PA (Req'g Loc Img Loc: NHM/BUILDING 1 Service: [place] [address] (Case 98 COMPLETE) ABDOMEN (2 VIEWS) (RAD Detailed) CPT:34420 Reason for Study: constipation x 10 days Clinical History: Report Status: Verified Date Reported: MAR 22, 2024 Date Verified: MAR 22, 2024 Endodontics Dentist E-Sig: Report: ABDOMEN (2 VIEWS) Clinical History: [...] fecal burden. READING PHYSICIAN: Adrien Rod M.D. -[id number] 03/22/2024 11:23 EDT [facility] National Teleradiology Program [phone] (For Medical Practitioner Use Only) Attention Patients / Veterans: If you have questions or concerns about these test results, please contact your ordering provider or primary care team. Primary Diagnostic Code: NO ALERT REQUIRED Primary Interpreting Staff: RADIOLOGY,OUTSIDE SERVICE, Staff Physician / RADIOLOGY,OUTSIDE SERVICE [facility] Encounter Notes: All associated encounter notes This section contains the clinical notes associated to the Encounter. Date/Time Encounter Note(s) Provider Source Mar 30, 2024 10:36 AM NURSING TELEPHONE ENCOUNTER NOTE: LOCAL TITLE: NURSING/OUTPATIENT TELEPHONE FOLLOW UP STANDARD TITLE: NURSING TELEPHONE ENCOUNTER NOTE DATE OF NOTE: MAR 30, 2024@10:36 ENTRY DATE: MAR 30, 2024@10:36:20 AUTHOR: CHLOÉ ROSENBERG EXP COSIGNER: URGENCY: STATUS: COMPLETED NURSING/OUTPATIENT TELEPHONE FOLLOW UP Has ADDENDA Received a message from that vet wants sooner appt. It looks like there may be a couple openings prior to his scheduled date of 04/27, for bilateral wrist pain, can you please call and offer him sooner appt if still open, thank you. /elizabeth/ Chloé Rosenberg RN Med Rehab Signed: 03/30/2024 10:37 Receipt Acknowledged By: 03/30/2024 11:22 /shakir ESPINO ADVANCED WARP CHANGER 03/30/2024 ADDENDUM STATUS: COMPLETED Called 04/29 - rs to 04/07 at 8am. All set. /shakir ESPINO ADVANCED WARP CHANGER Signed: 03/30/2024 11:23 CHLOÉ ROSENBERG [place] [facility]
--- OUTSIDE RECORDS SUMMARY | 2024-05-16 14:08 | XMS_ITS | Encounter Summary ---
Author Name [facility] [place] Organization [place] Address [address] [place] [address] Care Team Providers Care Library Customer Service Clerk Name Role Phone KIARA CASH Primary Care [...] Name Patient's Relationship to Policy Colbert [facility] (WNR) MEDICARE ADVANTAGE [facility] (WNR) Jun 01, 2017 [id number] [phone] Krishan TATE PATIENT [employer] [facility] (WNR) MEDICARE ADVANTAGE [facility] (WNR) Jun 01, 2017 [id number] Krishan TATE PATIENT [employer] [facility] (WNR) MEDICARE ADVANTAGE [facility] (WNR) Jun 01, 2017 [id number] Krishan TATE PATIENT Selected Encounter This section includes the information on record at [place] for the Encounter. Date/Time Encounter Type Encounter Description Reason Pro vider Source Mar 31, 2024 08:29 AM Outpatient Encounter ADMIN PAT ACTIVTIES (MASNONCT) [...] 07, 2024 08:00 AM AM[place]ULATORY [place]ICINE [place] [facility] [place] [facility] Apr 20, 2024 10:40 AM AMBULATORY [place]ICINE [place] [facility] [place] [facility] May 09, 2024 10:30 AM AMBULATORY [place]ICINE [place] [facility] [place] [facility] May 16, 2024 02:15 PM AMBULATORY - MEDICINE [place] [facility] [place] [facility] Jun 03, 2024 03:00 PM AMBULATORY - MEDICINE [place] [facility] [place] [facility] Jun 16, 2024 02:30 PM AMBULATORY [place] MEDICINE [place] [facility] [place] [facility] Jun 22, 2024 10:50 AM AMBULATORY [place] MEDICINE [place] [facility] [place] [facility] Aug 05, 2024 11:00 AM AMBULATORY - MEDICINE [place] [facility] [place] [facility] Aug 19, 2024 11:00 AM AMBULATORY - MEDICINE [place] [facility] [place] [facility] Sep 13, 2024 11:00 AM AMBULATORY - MEDICINE [place] [facility] [place] [facility] Sep 13, 2024 11:30 AM AM[place]ULATORY [place]ICINE [place] [facility] [place] [facility] Active, Pending, and Scheduled Orders This section includes a listing of several types of active, pending, and scheduled orders, including clinic medications orders, diagnostic test orders, procedure orders and consult orders; where the start date of the order is 45 days before the date of the Encounter or 45 days after the date of theEncounter. The data comes from all [place] treatment facilities. Test Date/Time Test Type Test Details Facility Name Mar 31, 2024 08:02 AM Consult Order COMMUNITY CARE-NEUROLOGY Cons Study Abroad Advisor's Choice [place] [facility] [place] [facility] May 09, 2024 11:19 AM Consult Order COMMUNITY CARE-CARDIOLOGY Cons Study Abroad Advisor's Choice [place] [facility] [place] [facility] Social History: Smoking Status (Most current) [...] took place. Date/Time Current Smoking Status Comment [facility] Dec 21, 2023 11:40 AM VA-TOBACCO QUIT 15 YRS OR MORE [place] [facility] [place] [facility] Tobacco Use History This section includes a history of the smoking, or tobacco-related health factors, that were collected on or before the date of the Encounter. The data comes from the [place] facility where the Encounter took place. Date/Time Smoking Status/Tobac co Use Comment [facility] Dec 21, 2023 11:40 AM VA-TOBACCO QUIT 15 YRS OR MORE [place] [facility] [place] [facility] Oct 31, 2022 11:30 AM VA-TOBACCO FORMER USER [facility] [place] [facility] Oct 31, 2022 11:30 AM VA-TOBACCO QUIT 15 YRS OR MORE [facility] [place] [facility] Sep 17, 2021 03:00 PM VA-TOBACCO FORMER USER [facility] [place] [facility] Sep 17, 2021 03:00 PM VA-TOBACCO QUIT 15 YRS OR MORE [facility] [place] [facility] Aug 15, 2020 10:00 AM VA-TOBACCO FORMER USER [facility] [place] [facility] Aug 15, 2020 10:00 AM VA-TOBACCO QUIT 15 YRS OR MORE [facility] [place] [facility] May 12, 2019 03:07 PM VA-TOBACCO FORMER USER [facility] [place] [facility] May 12, 2019 03:07 PM VA-TOBACCO QUIT 15 YRS OR MORE [facility] [place] [facility] May 31, 2018 01:08 PM [facility]ACCO [facility] May 31, 2018 01:08 PM VA-TOBACCO QUIT 15 YRS OR [facility] Feb 16, 2017 01:33 PM QUIT TOBACCO USE > 7 YEARS AGO [facility] Nov 13, 2015 03:48 PM QUIT TOBACCO USE > 7 YEARS AGO . [facility] May 12, 2013 12:49 PM QUIT [...] Nov 03, 2022 ADVANCE DIRECTIVE LENORA CARCAMO [facility] Aug 16, 2020 ADVANCE DIRECTIVE [...] the Encounter. The data comes from all [place] treatment facilities. Date/Time Radiology Report Provider Source Mar 29, 2024 10:17 AM ABDOMINAL ULTRASOUND: CHAR TATE [id number] -[id number] M Ex Date: MAR 29, 2024@10:17 Req Phys: KIARA CASH Loc: CWM/NO/SICK CALL PA (Req'g Loc Img Loc: ULTRASOUND [facility]: [facility] [place] [address] (Case [id number] COMPLETE) ULTRASOUND ABDOMEN LIMITED (US Detailed) CPT:80869 Reason for Study: Liver Clinical History: There is some prominence of the hepatic shadow with a suggested hepatic granuloma on plain film today. Report Status: Verified Date Reported: MAR 29, 2024 Date Verified: MAR 29, 2024 Patient Scheduler E-Sig: Report: ULTRASOUND ABDOMEN LIMITED [PRINTSET] HISTORY: Liver COMPARISON: 03/22/2024 abdomen x-ray TECHNIQUE: Ultrasound of the right upper abdomen was performed at the local [place] facility. 34 images were received by the [place] National Teleradiology Program (NTP) for interpretation. FINDINGS: [...] acute cholecystitis. READING PHYSICIAN: Cintia Campbell M.D. -[id number] 03/29/2024 14:38 EDT [facility] National RF Arraysradiology Program [phone] (For Medical Practitioner Use Only) Attention Patients / Veterans: If you have questions or concerns about these test results, please contact your ordering provider or primary care team. Primary Diagnostic Code: NO ALERT REQUIRED Primary Interpreting Staff: RADIOLOGY,OUTSIDE SERVICE, Staff Physician / RADIOLOGY,OUTSIDE SERVICE [place] [facility] [place] [facility] Mar 22, 2024 10:50 AM ABDOMEN (2 VIEWS): CHAR TATE EDWAR [id number] -1935 M Exm Date: MAR 22, 2024@10:50 Req Phys: LILIYA CHOWDHURY Pat Loc: CWM/NO/SICK CALL PA (Req'g Loc Img Loc: NHM/BUILDING 1 Service: Unknown [facility] [place] [address] (Case [id number] COMPLETE) ABDOMEN (2 VIEWS) (RAD Detailed) CPT:79832 Reason for Study: constipation x 10 days Clinical History: Report Status: Verified Date Reported: MAR 22, 2024 Date Verified: MAR 22, 2024 Patient Scheduler E-Sig: Report: ABDOMEN (2 VIEWS) Clinical History: [...] fecal burden. READING PHYSICIAN: Adrien Rod M.D. -[id number] 03/22/2024 11:23 EDT [facility] National Teleradiology Program [phone] (For Medical Practitioner Use Only) Attention Patients [...] Encounter. Date/Time Encounter Note(s) Provider Source Mar 31, 2024 08:29 AM PHARMACY NOTE: LOCAL TITLE: V1 PHARMACY CUSTOMER CARE MEDICATION RENEWAL STANDARD TITLE: PHARMACY NOTE DATE OF NOTE: MAR 31, 2024@08:29 ENTRY DATE: MAR 31, 2024@08:29:34 AUTHOR: WINTER JESSICA COSIGNER: URGENCY: STATUS: COMPLETED Date: Mar Division: [facility] referred by Pharmacy Call Center for medication renewal: Non-controlled/maintenan ce medication Medications requested: [id number] LISINOPRIL 10MG TAB Defer to primary care provider To be mailed . Please review and renew if appropriate. *This note was generated by [facility]/[place] Pharmacy Customer Care. If you have any questions or need assistance, do not contact this author. Please refer all questions to your local, on-site pharmacy departments. /elizabeth/ WINTER JESSICA [employer] Teacher, [place]/Pharmacy Customer Care Signed: 03/31/2024 08:29 Receipt Acknowledged By: 03/31/2024 12:54 /es/ JANES DALLAS, KIAH REGISTERED NURSE 03/31/2024 12:39 /elizabeth/ Kiara Cash PA-C STAFF PHYSICIAN FLATWORK WASHER WINTER JESSICA [place] [facility]
--- OUTSIDE RECORDS SUMMARY | 2024-05-16 14:08 | XMS_ITS | Encounter Summary ---
Author Name [facility] [place] Address [address] [place] [address] Care Team Providers Care Powerhouse Tender Name Role Phone KIARA CASH Primary Care [...] Name Patient's Relationship to Policy Colbert KYLIE [facility] (WNR) MEDICARE ADVANTAGE [facility] (WNR) Jun 01, 2017 [id number] Krishan TATE PATIENT [facility] (WNR) MEDICARE ADVANTAGE [facility] (WNR) Jun 01, 2017 [id number] [phone] Krishan TATE PATIENT [facility] (WNR) MEDICARE ADVANTAGE [facility] (WNR) Jun 01, 2017 [id number] Krishan TATE PATIENT Selected Encounter This section includes the information on record at [place] for the Encounter. Date/Time Encounter Type Encounter Description Reason Pro vider Source Mar 31, 2024 07:53 AM Outpatient Encounter COMMUNITY CARE CONSULT IHE Encounter Template Text not used by [place] Plan of Treatment: Future Appointments (+ 6 months) and Future Tests (+/- 45 days) The Plan of Treatment section includes future care activities for the [facility] [place] [facility] This section includes future appointments and future orders which are active, pending or scheduled. Future Appointments This section includes appointments that were scheduled to occur 6 months from the date of the Encounter, up to a maximum of 20 appointments. The data comes from all [facility]. Appointment Date/Time Appointment Type Appointme nt Facility Name Apr 07, 2024 08:00 AM AMBULATORY - MEDICINE [place] [facility] [place] [place] [facility] Apr 20, 2024 10:40 AM AMBULATORY - MEDICINE [place] [facility] [place] [facility] May 09, 2024 10:30 AM AMBULATORY - MEDICINE [place] [facility] [place] [facility] May 16, 2024 02:15 PM AMBULATORY - MEDICINE [place] [facility] [place] [facility] Jun 03, 2024 03:00 PM AMBULATORY - MEDICINE [place] [facility] [place] [facility] Jun 16, 2024 02:30 PM AMBULATORY - MEDICINE [place] [facility] [place] [facility] Jun 22, 2024 10:50 AM AMBULATORY - MEDICINE [place] [facility] [place] [facility] Aug 05, 2024 11:00 AM AMBULATORY - MEDICINE [place] [facility] [place] [facility] Aug 19, 2024 11:00 AM AMBULATORY - MEDICINE [place] [facility] [place] [facility] Sep 13, 2024 11:00 AM AMBULATORY - MEDICINE [place] [facility] [place] [facility] Sep 13, 2024 11:30 AM AMBULATORY - MEDICINE [place] [facility] [place] [facility] Active, Pending, [...] 08:02 AM Consult Order COMMUNITY CARE-NEUROLOGY Cons Hr Recruiter's Choice [place] [facility] [place] [facility] May 09, 2024 11:19 AM Consult Order COMMUNITY CARE-CARDIOLOGY Cons Hr Recruiter's Choice [place] [facility] [place] [facility] Social History: Smoking Status (Most current) [...] took place. Date/Time Current Smoking Status Comment [facility] Dec 21, 2023 11:40 AM VA-TOBACCO QUIT 15 YRS OR MORE [place] [facility] [place] [facility] Tobacco Use History This section includes a history of the smoking, or tobacco-related health factors, that were collected on or before the date of the Encounter. The data comes from the [place] facility where the Encounter took place. Date/Time Smoking Status/Tobac co Use Comment [facility] Dec 21, 2023 11:40 AM VA-TOBACCO QUIT 15 YRS OR MORE [facility] [place] [facility] Oct 31, 2022 11:30 AM VA-TOBACCO FORMER USER [facility] [place] [facility] Oct 31, 2022 11:30 AM VA-TOBACCO [...] [facility] [place] [facility] May 12, 2019 03:07 PM VA-TOBACCO FORMER USER [facility] [place] [facility] May 12, 2019 03:07 PM VA-TOBACCO QUIT 15 YRS OR MORE [facility] [place] [facility] May 31, 2018 01:08 PM VA-TOBACCO [facility] May 31, 2018 01:08 PM VA-TOBACCO QUIT 15 YRS OR MORE [facility] Feb 16, 2017 01:33 PM QUIT TOBACCO USE > 7 YEARS AGO quit 16 years ago [facility] Nov 13, 2015 03:48 PM QUIT TOBACCO USE > 7 YEARS AGO . [facility] May 12, 2013 12:49 PM QUIT TOBACCO USE > 7 YEARS AGO quit 2001 [facility] Advance Directives: All historical [...] Nov 03, 2022 ADVANCE DIRECTIVE LENORA CARCAMO [facility] Aug 16, 2020 ADVANCE DIRECTIVE EDMUND MORGAN [facility] Radiology Reports: +/- 30 days of [...] the Encounter. The data comes from all [place] treatment facilities. Date/Time Radiology Report Provider Source Mar 29, 2024 10:17 AM ABDOMINAL ULTRASOUND: CHAR TATE EDWAR [id number] -1935 M Ex Date: MAR 29, 2024@10:17 Req Phys: KIARA CASH Loc: CWM/NO/SICK CALL PA (Req'g Loc Img Loc: ULTRASOUND Service: [place] [address] (Case 109 COMPLETE) ULTRASOUND ABDOMEN LIMITED (US Detailed) CPT:49116 Reason for Study: Liver Clinical History: There is some prominence of the hepatic shadow with a suggested hepatic granuloma on plain film today. Report Status: Verified Date Reported: MAR 29, 2024 Date Verified: MAR 29, 2024 [employer] E-Sig: Report: ULTRASOUND ABDOMEN LIMITED [PRINTSET] HISTORY: Liver COMPARISON: 03/22/2024 abdomen x-ray TECHNIQUE: Ultrasound of the right upper abdomen was performed at the local [place] facility. 34 images were received by the [place] National Teleradiology Program (NTP) for interpretation. FINDINGS: [...] acute cholecystitis. READING PHYSICIAN: Cintia Campbell M.D. -[id number] 03/29/2024 14:38 EDT [facility] National Teleradiology Program [phone] (For Medical Practitioner Use Only) Attention Patients / Veterans: If you have questions or concerns about these test results, please contact your ordering provider or primary care team. Primary Diagnostic Code: NO ALERT REQUIRED Primary Interpreting Staff: RADIOLOGY,OUTSIDE SERVICE, Staff Physician / RADIOLOGY,OUTSIDE SERVICE [place] [facility] [place] [facility] Mar 22, 2024 10:50 AM ABDOMEN (2 VIEWS): CHAR TATE EDWAR [id number] -1935 M Exm Date: MAR 22, 2024@10:50 Req Phys: LILIYA CHOWDHURY Pat Loc: CWM/NO/SICK CALL PA (Req'g Loc Img Loc: [place]/BUILDING 1 Service: [place] [address] (Case 98 COMPLETE) ABDOMEN (2 VIEWS) (RAD Detailed) CPT:55568 Reason for Study: constipation x 10 days Clinical History: Report Status: Verified Date Reported: MAR 22, 2024 Date Verified: MAR 22, 2024 Vp Business Development E-Sig: Report: ABDOMEN (2 VIEWS) Clinical History: [...] fecal burden. READING PHYSICIAN: Adrien Rod M.D. -[id number] 03/22/2024 11:23 EDT [facility] National Teleradiology Program [phone] (For Medical Practitioner Use Only) Attention Patients / Veterans: If you have questions or concerns about these test results, please contact your ordering provider or primary care team. Primary Diagnostic Code: NO ALERT REQUIRED Primary Interpreting Staff: RADIOLOGY,OUTSIDE SERVICE, Staff Physician / RADIOLOGY,OUTSIDE SERVICE [facility] Encounter Notes: All associated encounter notes This section contains the clinical notes associated to the Encounter. Date/Time Encounter Note(s) Provider Source Mar 31, 2024 07:54 AM ADMINISTRATIVE NOTE: LOCAL TITLE: ADMINISTRATIVE NOTE STANDARD TITLE: ADMINISTRATIVE NOTE DATE OF NOTE: MAR 31, 2024@07:54 ENTRY DATE: MAR 31, 2024@07:54:13 AUTHOR: MAO FARAH COSIGNER: URGENCY: STATUS: COMPLETED [place] is seeking Continuation of Care for Neurology. [facility] - Neurology Dr. Yung [facility] [address] , [address] [place] [address] Group Last referral ends on 06/19/23 has appt on 06/22/23 @ 10:50am /elizabeth/ MAO FARAH CARE IN THE COMMUNITY RELATIONS Signed: 03/31/2024 07:55 Receipt Acknowledged By: 03/31/2024 08:19 /es/ JANES DALLAS, KIAH REGISTERED NURSE 03/31/2024 08:02 /es/ Kiara Cash PA-C STAFF PHYSICIAN PSYCHOLOGY TECH MAO FARAH [place] [facility]
--- OUTSIDE RECORDS SUMMARY | 2024-05-16 14:08 | XMS_ITS | Encounter Summary ---
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 Name Role Phone KIARA ESPARZA Primary [...] Name Patient's Relationship to Policy Colbert BCKYLIE [facility] (WNR) MEDICARE ADVANTAGE [facility] (WNR) Jun 01, 2017 [id number] Krishan TATE PATIENT [facility] (WNR) MEDICARE ADVANTAGE [facility] (WNR) Jun 01, 2017 [id number] [phone] Krishan TATE PATIENT [facility] (WNR) MEDICARE ADVANTAGE [facility] (WNR) Jun 01, 2017 [id number] Krishan TATE PATIENT Selected Encounter This section includes the information on record at [place] for the Encounter. Date/Time Encounter Type Encounter Description Reason Provider Source Apr 07, 2024 08:00 AM OFFICE O/P EST HI 40 MIN PM&RS PHYSICIAN ICD-10-CM M47.816 Spondylosis w/o myelopathy or radiculopathy, lumbar region JOHNNIE HARPER IHE Encounter Template Text not used by [place] Assessments - Encounter Diagnoses This section includes the primary and secondary diagnoses documented for the Encounter. Date/Time Primary/Secondary Diagnosis Diagnosis Name Provider Source Apr 07, 2024 09:02 AM PRIMARY Spondylosis w/o myelopathy or radiculopathy, lumbar region JOHNNIE HARPER [place] [facility] [place] [facility] Apr 07, 2024 09:02 AM SECONDARY Carpal tunnel syndrome, bilateral upper limbs JOHNNIE HARPER [place] [facility] [place] [facility] Plan of Treatment: Future Appointments (+ 6 months) and Future Tests (+/- 45 days) The Plan of Treatment section includes future care activities for the patient from all [place] treatmentfamar[facility] hospital. This section includes future appointments and future orders which are active, pending or scheduled. Future Appointments This section includes appointments that were scheduled to occur 6 months from the date of the Encounter, up to a maximum of 20 appointments. The data comes from all [place] treatment facilities. Appointment Date/Time Appointment Type Appointme nt Facility Name Apr 20, 2024 10:40 AM AM[place]UL[place]ORY [place] [facility] [place] [facility] May 09, 2024 10:30 AM [place] [facility] [facility] May 16, 2024 02:15 PM [place] [facility] [facility] Jun 03, 2024 03:00 PM [place] [facility] [facility] Jun 16, 2024 02:30 PM [place] [facility] [facility] Jun 22, 2024 10:50 AM [place] [facility] [facility] Aug 05, 2024 11:00 AM [place] [facility] [facility] Aug 19, 2024 11:00 AM [place] [facility] [facility] Sep 13, 2024 11:00 AM [place] [facility] Sep 13, 2024 11:30 AM AM[facility]ULATORY - MEDICINE [facility] Active, Pending, and Scheduled Orders This section includes a listing of several types of active, pending, and scheduled orders, including clinic medications orders, diagnostic test orders, procedure orders and consult orders; where the start date of the order is 45 days before the date of the Encounter or 45 days after the date of theEncounter. The data comes from all [place] treatment facilities. Test Date/Time Test Type Test Details Facility Name Mar 31, 2024 08:02 AM Consult Order [facility] Cons [facility] Reporter's Choice [facility] May 09, 2024 11:19 AM Consult Order [facility]-CARDIOLOGY [facility] Marine Reporter's Choice [facility] Lab Results: +/- 30 days [...] Result - Unit Interpretation Reference Range Comment May 02, 2024 09:24 AM [facility] HEMOGLOBIN A1C PANEL Specimen Type: BLOOD Comment: Values obtained from A1C measurements can vary. For atypical A1C assays, a reported value of 7.0 could actually be between 6.72 and 7.28 if measured by a reference method. A reported value of 9.0 could actually be between 8.73 and 9.27. Ref: http://www.ngs p.org/CAPdata. asp Ordering Provider: SOLOMON ESPARZA Report Released Date/Time: Apr 27, 2024 11:20 AM Reporting Lab: [facility] [address] [facility] [id number] Performing Lab: [address] [address] HEMOGLOBIN A1C 5.6 4.0-5.6 May 02, 2024 09:24 AM [facility] LIPID PANEL FASTING Specimen Type: SERUM Comment: Hemolysis present analysis cannot be performed. Hemolysis present may falsly elevate Potassium Total and Direct Bili, Iron, AST, %Fe. Ordering Provider: SOLOMON ESPARZA Report Released Date/Time: Apr 27, 2024 11:20 AM Reporting Lab: [facility] [address] [facility] [address] Performing Lab: [facility] [address] [facility] [address] CHOLESTEROL 85 mg/dL TRIGLYCERIDE 130 mg/dL 0-150 LDL calculated 29 mg/dL 0-129 CHOL/HDL 2.8 HDL CHOLESTEROL 30 mg/dL L 40-60 May 02, 2024 09:24 AM [facility] LIVER FUNCTION Specimen Type: SERUM Comment: Hemolysis present analysis cannot be performed. Hemolysis present may falsly elevate Potassium Total and Direct Bili, Iron, AST, %Fe. Ordering Provider: SOLOMON ESPARZA F Report Released Date/Time: Apr 27, 2024 11:20 AM Reporting Lab: [facility] [address] [address] Performing Lab: [address] [address] PROTEIN,TOTAL 6.2 g/dL 6.0-8.3 ALBUMIN 3.8 g/dL 3.5-5.0 ALKALINE PHOSPHATASE 35 U/L L 40-150 AST 22 U/L 5-34 ALT 12 U/L BILIRUBIN, TOTAL comment mg/dL 0.2-1.2 May 02, 2024 09:24 AM [facility] BASIC METABOLIC PANEL (fasting) Specimen Type: SERUM Comment: Hemolysis present analysis cannot be performed. Hemolysis present may falsly elevate Potassium Total and Direct Bili, Iron, AST, %Fe. Ordering Provider: SOLOMON ESPARZA Report Released Date/Time: Apr 27, 2024 11:20 AM Reporting Lab: [address] [address] Performing Lab: [address] [address] UREA NITROGEN 24 mg/dL 7-25 GLUCOSE 93 mg/dL 65-100 SODIUM 140 mmol/L 135-145 POTASSIUM 5.1 mmol/L H 3.5-5.0 CHLORIDE 112 mmol/L H 100-110 CO2 19 meq/L L 20-30 CREATININE, Serum 0.87 mg/dL 0.50-1.40 eGFR(CKD-EPI 2020) 84 mL/min >60 Vital Signs: All taken on the encounter date This section contains inpatient and outpatient Vital Signs collected on the date of the Encounter. Date/Time Temperature Pulse Blood Pressure Respiratory Rate SP02 Pain Height Weight Body Mass Index Source Apr 07, 2024 08:06 AM 60 130/60 18 95 3 [place] [facility] [facility] Social History: Smoking Status (Most current) and [...] Comment [facility] Dec 21, 2023 11:40 AM VA-TOBACCO FORMER USER [place] [facility] [place] [facility] Tobacco Use History This section includes a history of the smoking, or tobacco-related health factors, that were collected on or before the date of the Encounter. The data comes from the [place] facility where the Encounter took place. Date/Time Smoking Status/Tobac co Use Comment Facility Dec 21, 2023 11:40 AM VA-TOBACCO QUIT 15 YRS OR MORE [place] [facility] [place] [facility] Oct 31, 2022 11:30 AM VA-TOBACCO FORMER USER [place] [facility] [place] [facility] Oct 31, 2022 11:30 AM VA-TOBACCO QUIT 15 YRS OR MORE [place] [facility] [place] [facility] Sep 17, 2021 03:00 PM VA-TOBACCO FORMER USER [place] [facility] [facility] Sep 17, 2021 03:00 PM VA-TOBACCO QUIT 15 YRS OR MORE [place] [facility] [facility] Aug 15, 2020 10:00 AM VA-TOBACCO FORMER USER [place] [facility] [place] [facility] Aug 15, 2020 10:00 AM VA-TOBACCO QUIT 15 YRS OR MORE [place] [facility] [facility] May 12, 2019 03:07 PM VA-TOBACCO FORMER USER [place] [facility] [facility] May 12, 2019 03:07 PM VA-TOBACCO QUIT 15 YRS OR MORE [place] [facility] May 31, 2018 01:08 PM VA-TOBACCO FOR[place] USER [place] [facility] May 31, 2018 01:08 PM VA-TOBACCO QUIT 15 YRS OR MORE [place] [facility] [facility] Feb 16, 2017 01:33 PM QUIT TOBACCO USE > 7 YEARS AGO quit 16 years ago [place] [facility] Nov 13, 2015 03:48 PM QUIT TOBACCO USE > 7 YEARS AGO . [place] [facility] May 12, 2013 12:49 PM QUIT TOBACCO USE > 7 YEARS AGO quit 2001 [facility] Advance Directives: All historical and current Section [...] Nov 03, 2022 ADVANCE DIRECTIVE [facility] Aug 16, 2020 ADVANCE DIRECTIVE EDMUND MORGAN [facility] Radiology Reports: +/- 30 days of [...] the Encounter. The data comes from all [place] treatment facilities. Date/Time Radiology Report Provider Source Mar 29, 2024 10:17 AM ABDOMINAL ULTRASOUND: CHAR TATE EDWAR [id number] -1935 M Exm Date: MAR 29, 2024@10:17 Req Phys: KIARA ESPARZA Loc: CWM/NO/SICK CALL WILLOW Ramos'gwen Loc Img Loc: ULTRASOUND Service: Unknown [place] [facility] [facility] [place] [address] (Case [id number] COMPLETE) ULTRASOUND ABDOMEN LIMITED (US Detailed) CPT:47364 Reason for Study: Liver Clinical History: There is some prominence of the hepatic shadow with a suggested hepatic granuloma on plain film today. Report Status: Verified Date Reported: MAR 29, 2024 Date Verified: MAR 29, 2024 Director Of Acquisitions E-Sig: Report: ULTRASOUND ABDOMEN LIMITED [PRINTSET] HISTORY: Liver COMPARISON: 03/22/2024 abdomen x-ray TECHNIQUE: Ultrasound of the right upper abdomen was performed at the local [place] facility. 34 images were received by the [place] National Neulradiology Program (NTP) for interpretation. FINDINGS: Liver: The [...] acute cholecystitis. READING PHYSICIAN: Cintia Campbell M.D. -[phone] 03/29/2024 14:38 EDT [facility] [employer].comradiology Program [phone] (For Medical Practitioner Use Only) Attention Patients / Veterans: If you have questions or concerns about these test results, please contact your ordering provider or primary care team. Primary Diagnostic Code: NO ALERT REQUIRED Primary Interpreting Staff: RADIOLOGY,OUTSIDE SERVICE, Staff Physician / RADIOLOGY,OUTSIDE SERVICE [facility] Mar 22, 2024 10:50 AM ABDOMEN (2 VIEWS): CHAR TATE [id number] -[id number] M Exm Date: MAR 22, 2024@10:50 Req Phys: LILIYA CHOWDHURY Pat Loc: CWM/NO/SICK CALL PA (Req'g Loc Img Loc: NHM/BUILDING 1 Service: Unknown [facility] [place] [address] (Case 98 COMPLETE) ABDOMEN (2 VIEWS) (RAD Detailed) CPT:77704 Reason for Study: constipation x 10 days Clinical History: Report Status: Verified Date Reported: MAR 22, 2024 Date Verified: MAR 22, 2024 Director Of Acquisitions E-Sig: Report: ABDOMEN (2 VIEWS) Clinical History: [...] fecal burden. READING PHYSICIAN: Adrien Rod M.D. -[id number] 03/22/2024 11:23 EDT [facility] National Teleradiology Program [phone] (For Medical Practitioner Use Only) Attention Patients / Veterans: If you have questions or concerns about these test results, please contact your ordering provider or primary care team. Primary Diagnostic Code: NO ALERT REQUIRED Primary Interpreting Staff: RADIOLOGY,OUTSIDE SERVICE, Staff Physician / RADIOLOGY,OUTSIDE SERVICE [facility] Encounter Notes: All associated encounter notes This section contains the clinical notes associated to the Encounter. Date/Time Encounter Note(s) Provider Source Apr 07, 2024 08:53 AM PHYSICAL MEDICINE REHAB NOTE: LOCAL TITLE: PM&R BACK/JOINT PROCEDURE NOTE STANDARD TITLE: PHYSICAL MEDICINE REHAB NOTE DATE OF NOTE: APR 07, 2024@08:53 ENTRY DATE: APR 07, 2024@08:53:14 AUTHOR: KARLOS HARPER COSIGNER: URGENCY: STATUS: COMPLETED PROCEDURE: Bilateral carpal tunnel injection with cortisone. INDICATION: Carpal tunnel syndrome. INFORMED CONSENT: Obtained verbally, and through IMED. had excellent resolution of pain in the right wrist after carpal tunnel injection in July 2023. He has not had any recurrence until just recently. 3 weeks ago he began having numbness and tingling in the hands that was waking up at nighttime. He did not go back to his cock-up wrist splints although he has them at home. Historically occupational therapy has not proven to be terribly helpful for him. 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 He is not experiencing any problems with the de Quervain's currently. Numbness and tingling is in the median nerve innervated digits bilaterally. He has additional complaint today regarding the low back. 1 week ago they were entertaining spend more time being sedentary. Usually goes to the salt water pool and finds this to be therapeutic. He does have a history of back pain and sciatica but it has not been terribly active. 1 week ago he began to experience pain in the left low back region. He has a difficult time standing first thing in the morning. No pains radiating distally into the lower extremities. No problems with bowel or bladder function and no changes. No incontinence. No constipation currently. He did try applying heat and finds this to be helpful. He has also used the lidocaine patch but this was and he is not certain that this was helpful. Examination of the wrist demonstrates positive Tinel's positive median nerve compression test. There is some atrophy in the thenar region bilaterally. Some bossing of the CMC joint. He has no tenderness over the first dorsal compartment. Low back demonstrates tenderness in the left paralumbar facet region. Worsened with lateral flexion to the left and in extension. Negative Lasegue's maneuver. Reflexes symmetrical. He walks his with a slow reciprocal gait and somewhat of a shuffled gait but this is not new to him. The procedure as well as potential risks and benefits of a carpal tunnel injection were discussed with patient, including potential for infection, soreness at the site of injection, nerve damage, hematoma, adverse reaction to cortisone, temporary increase in blood sugar (if applicable), and failure for the medication to be effective. Patient agreed to proceed. TIME OUT NOTE TIME:Apr@08:30 correctly stated: [X]Full name: CHAR TATE [X]Last 4 of #: [id number] [X]: Jul PROVIDER NAME: Karlos Harper PA-c STAFF NAME: Clemencia Rosenberg RN Lot #: [id number] Exp: Jun 2025 Patient was seated with the left and then right wrist in supination and slight hyperextension. [...] of 1.5mL total of 1% lidocaine and 30mg of methylprednisolone was injected without any difficulties or resistance. The needle was withdrawn and light compression was applied with a 2x2 gauze. A band-aid was applied. Attention was then paid to the left paralumbar region. The skin was cleansed thoroughly with chlorhexidine x 3. Utilizing a 25-gauge 1-1/2 inch needle quadratus lumborum was injected in 3 separate locations with 2 cc of lidocaine and 2 cc of bupivacaine. Moderate anesthetic relief was appreciated. No complications. No blood loss. Patient reported [...] issues/questions regarding the injection. Pre-procedure pain level: 6/10 Post-procedure pain level: 3/10 Assessment and plan: #1 carpal tunnel bilateral. Bucklin was given injection today. He will contact us when symptoms should recur. 2. Spondylosis with muscular spasm. Trigger point injection provided today. Lidocaine patches refilled. Recommended restarting his exercise program in the pool. Consideration to Salonpas or capsaicin would be reasonable. We discussed physical therapy and he would like to see whether time in conjunction with returning to his exercise program is adequately helpful. Consideration to facet injections could be given in the future if symptoms do not improve. Medication Reconciliation: Outpatient: Has the patient been taking medications as documented in the EMLR? YES: The patient has been taking medications as documented in the EMLR. Essential Medication List for Review used to complete this medication reconciliation. INCLUDED IN THIS LIST: Alphabetical list of active outpatient prescriptions dispensed from this [place] (local) and dispensed from another [place] or [facility] facility (remote) as well as inpatient orders [...] list may not be complete. Please check [place] [employer] Allergies/ADRs (Tool #5) FACILITY ALLERGY/ADR -------- No Remote Allergy/ADR Data available for this patient [place] [facility] [place] [facility] CORTISONE [facility] [place] [facility] [place] [facility] PENICILLIN Med Recon NoGlossary (Tool #1) INCLUDED IN THIS LIST: Alphabetical list of active outpatient prescriptions dispensed from this [place] (local) and dispensed from another [place] or [facility] facility (remote) as well as inpatient orders (local pending and active), local clinic medications, locally documented non-VA medications, and local prescriptions that have or been discontinued in the past 90 days. Non-VA Meds Last Documented On: Jun 10, 2023 NOTE The display of VA prescriptions dispensed from another [place] or [facility] facility (remote) is limited to active outpatient prescription entries matched to National Drug File at the originating site and may not include some items such as investigational drugs, compounds, etc. NOT INCLUDED IN THIS LIST: Medications self-entered by the patient into personal health records (i.e. WikiYou) are NOT included in this list. Non-VA medications documented outside this [place], remote inpatient orders (regardless of status) and [...] ONCE DAILY FOR DRY IRRITATED SKIN Rx# [id number] Last Released: 01/28/24 Qty/Days Supply: 240/90 Rx Expiration Date: 01/25/25 Refills Remainin Indication: FOR DRY SKIN Non-VA ASPIRIN 81MG EC TAB TAKE ONE TABLET BY MOUTH DAILY OUTPT CAPSAICIN 0.025% CREAM (Status = Discontinued) APPLY A THIN LAYER TOPICALLY TWICE DAILY NEEDED FOR KNEES Rx# [id number] Last Released: 01/25/24 Qty/Days Supply: 60/30 Rx Expiration Date: 11/02/24 Refills Remainin Indication: FOR LOCALIZED PAIN OUTPT CAPSAICIN 0.025% CREAM (Status = Active) APPLY A THIN LAYER TOPICALLY TWICE DAILY NEEDED FOR LOCALIZED PAIN FOR KNEES Rx# [id number] Last Released: 02/16/24 Qty/Days Supply: 60/30 Rx Expiration Date: 01/25/25 Refills Remainin Indication: FOR LOCALIZED PAIN OUTPT CARBOXYMETHYLCELLULOSE NA 0.5% OPH SOLN (Status = Active) INSTILL 1 DROP INTO EACH EYE FOUR TIMES DAILY NEEDED FOR DRYNESS Rx# [id number] Last Released: 12/07/23 Qty/Days Supply: 45 Rx Expiration Date: 06/02/24 Refills Remainin Indication: FOR DRY EYE OUTPT DICLOFENAC NA 1% TOP GEL (Status = ) APPLY 2 GRAMS TOPICALLY FOUR TIMES A DAY FOR OSTEOARTHRITIS - USE DOSING CARD PROVIDED IN BOX APPLY TO HANDS Rx# [id number] Last Released: 01/21/24 Qty/Days Supply: 100/30 Rx Expiration Date: 01/23/24 Refills Remainin Indication: FOR OSTEOARTHRITIS OUTPT EYELID CLEANSER,EYE SCRUB PAD (Status = Active) USE 1 PAD TOPICALLY ONCE DAILY BLEPHARITIS Rx# [id number] Last Released: 02/19/24 Qty/Days Supply: Rx Expiration Date: 02/16/25 Refills Remainin Indication: BLEPHARITIS OUTPT FERROUS SULFATE 325MG TAB (Status = Active) TAKE ONE TABLET BY MOUTH ONCE DAILY TO SUPPLEMENT IRON Rx# [id number] Last Released: 11/28/23 Qty/Days Supply: 100 Rx Expiration Date: 11/26/24 Refills Remainin OUTPT HYLAN G-F20 48MG/6ML INJ SYRINGE 6ML (Status = ) INJECT 48MG/6ML INTRA-ARTICULAR NEEDED DIRECTED BY PROVIDER Rx# [id number] Last Released: 07/17/23 Qty/Days Supply: Rx Expiration Date: 01/16/24 Refills Remainin OUTPT HYLAN G-F20 48MG/6ML INJ SYRINGE 6ML (Status = Active) INJECT 48MG/6ML INTRA-ARTICULAR NEEDED FOR OSTEOARTHRITIS OF THE KNEE DIRECTED BY PROVIDER Rx# [id number] Last Released: 02/02/24 Qty/Days Supply: Rx Expiration Date: 02/02/25 Refills Remainin Indication: FOR OSTEOARTHRITIS OF THE KNEE OUTPT HYPROMELLOSE 0.3% OPH GEL (Status = Active) APPLY 1 TO 2 DROPS INTO EACH EYE AT BEDTIME FOR DRY EYE Rx# [id number] Last Released: 02/22/24 Qty/Days Supply: 40 Rx Expiration Date: 02/16/25 Refills Remainin Indication: FOR DRY EYE OUTPT LACTULOSE 10GM/15ML ORAL SOLN (Status = Active) TAKE 30 ML (2 TABLESPOONS) BY MOUTH TWICE DAILY NEEDED FOR CONSTIPATION Rx# [id number] Last Released: 03/22/24 Qty/Days Supply: Rx Expiration Date: 06/20/24 Refills Remainin Indication: FOR CONSTIPATION OUTPT LATANOPROST 0.005% OPH SOLN (Status = Active) INSTILL 1 DROP INTO EACH EYE AT BEDTIME FOR INCREASED PRESSURE IN THE EYE Rx# [id number] Last Released: 02/17/24 Qty/Days Supply: 7. Rx Expiration Date: 02/16/25 Refills Remainin Indication: FOR INCREASED PRESSURE IN THE EYE OUTPT LIDOCAINE 5% PATCH (Status = Pending) APPLY 1 PATCH TOPICALLY ONCE DAILY (LEAVE PATCH ON FOR 12 HOURS, THEN REMOVE PATCH) 12 hours on and leave off for 12 hours Login Date: 04/07/24 Qty/Days Supply: Refills Ordered: 3 OUTPT LISINOPRIL 10MG TAB (Status = Discontinued) TAKE ONE TABLET BY MOUTH ONCE DAILY TO CONTROL BLOOD PRESSURE Rx# [id number] Last Released: 01/01/24 Qty/Days Supply: Rx Expiration Date: 03/02/24 Refills Remainin OUTPT LISINOPRIL 10MG TAB (Status = Active) TAKE ONE TABLET BY MOUTH ONCE DAILY TO CONTROL BLOOD PRESSURE Rx# [id number] Last Released: 04/04/24 Qty/Days Supply: Rx Expiration Date: 04/01/25 Refills Remainin OUTPT LUBRICATING (PF) OPH OINT (Status = ) APPLY THIN RIBBON INTO EACH EYE AT BEDTIME Rx# [id number] Last Released: 12/31/23 Qty/Days Supply: Rx Expiration Date: 03/04/24 Refills Remainin OUTPT METOPROLOL TARTRATE 50MG TAB (Status = Discontinued) TAKE ONE TABLET BY MOUTH TWICE DAILY FOR BLOOD PRESSURE/HEART Rx# [id number] Last Released: 11/10/23 Qty/Days Supply: Rx Expiration Date: 02/01/24 Refills Remainin OUTPT METOPROLOL TARTRATE 50MG TAB (Status = Active) TAKE ONE TABLET BY MOUTH TWICE DAILY FOR BLOOD PRESSURE/HEART Rx# [id number] Last Released: 01/27/24 Qty/Days Supply: 180 Rx Expiration Date: 01/25/25 Refills Remainin Non-VA MULTIVITAMIN/MINERALS CAP/TAB TAKE ONE TABLET BY MOUTH EVERY MORNING OUTPT OMEPRAZOLE 20MG EC CAP (Status = Active) TAKE ONE CAPSULE BY MOUTH EVERY MORNING 30 MINUTES BEFORE BREAKFAST Rx# [id number] Last Released: 04/04/24 Qty/Days Supply: 90 Rx Expiration Date: 09/28/24 Refills Remainin OUTPT POLYETHYLENE GLYCOL 3350 ORAL PWDR (Status = Active) TAKE 17 GRAMS(FILL CAP TO 17GM LINE) BY MOUTH ONCE DAILY FOR CONSTIPATION [MIX WITH 4 TO 8OZ. OF BEVERAGE] Rx# [id number] Last Released: 03/22/24 Qty/Days Supply: Rx Expiration Date: 04/21/24 Refills Remainin Indication: FOR CONSTIPATION OUTPT ROSUVASTATIN CA 40MG TAB (Status = Active) TAKE ONE TABLET BY MOUTH ONCE DAILY FOR CHOLESTEROL Rx# [id number] Last Released: 04/04/24 Qty/Days Supply: Rx Expiration Date: 09/28/24 Refills Remainin Indication: FOR HIGH CHOLESTEROL OUTPT TAMSULOSIN HCL 0.4MG CAP (Status = Active) TAKE ONE CAPSULE BY MOUTH ONCE DAILY FOR ENLARGED PROSTATE Rx# [id number] Last Released: 02/29/24 Qty/Days Supply: Rx Expiration Date: 06/02/24 Refills Remainin Indication: FOR ENLARGED PROSTATE OUTPT TIMOLOL MALEATE 0.5% OPH SOLN (Status = ) INSTILL 1 DROP INTO EACH EYE EVERY MORNING Rx# [id number] Last Released: 02/09/24 Qty/Days Supply: Rx Expiration Date: 03/04/24 Refills Remainin SUPPLIES /elizabeth/ KARLOS HARPER [facility] Signed: 04/07/2024 09:03 KARLOS HARPER [facility]
--- OUTSIDE RECORDS SUMMARY | 2024-05-16 14:08 | XMS_ITS | Encounter Summary ---
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 Name Role Phone KIARA CASH Primary [...] Name Patient's Relationship to Policy Colbert BCBS [facility] (WNR) MEDICARE ADVANTAGE [facility] (WNR) Jun 01, 2017 [id number] Krishan TATE PATIENT BCBS [facility] (WNR) MEDICARE ADVANTAGE [facility] (WNR) Jun 01, 2017 [id number] Krishan TATE PATIENT BCBS [facility] (WNR) MEDICARE ADVANTAGE [facility] (WNR) Jun 01, 2017 [id number] Krishan TATE PATIENT Selected Encounter This section includes the information on record at [place] for the Encounter. Date/Time Encounter Type Encounter Description Reason Pro vider Source Apr 21, 2024 01:47 PM Outpatient Encounter ADMIN PAT ACTIVTIES (MASNONCT) [...] The data comes from all [place] treatment [facility]. Appointment Date/Time Appointment Type Appointme nt Facility Name May 09, 2024 10:30 AM AMBULATORY [place] MEDICINE [place] [facility] [place] [facility] May 16, 2024 02:15 PM AMBULATORY [place] MEDICINE [place] [facility] [place] [facility] Jun 03, 2024 03:00 PM AMBULATORY - MEDICINE [place] [facility] [place] [facility] Jun 16, 2024 02:30 PM AMBULATORY - MEDICINE [place] [facility] [place] [facility] Jun 22, 2024 10:50 AM AMBULATORY - MEDICINE [place] [facility] [place] [facility] Aug 05, 2024 11:00 AM AMBULATORY - MEDICINE [place] [facility] [place] [facility] Aug 19, 2024 11:00 AM AMBULATORY - MEDICINE [place] [facility] [place] [facility] Sep 13, 2024 11:00 AM AMBULATORY - MEDICINE [place] [facility] [place] [facility] Sep 13, 2024 11:30 AM AMBULATORY - MEDICINE [place] [facility] [place] [facility] Active, Pending, and Scheduled Orders This section includes a listing of several types of active, pending, and scheduled orders, including clinic medications orders, diagnostic test orders, procedure orders and consult orders; where the start date of the order is 45 days before the date of the Encounter or 45 days after the date of theEncounter. The data comes from all [facility]. Test Date/Time Test Type Test Details Facility Name Mar 31, 2024 08:02 AM Consult Order COMM[facility]ITY [facility]-NEUROLOGY Cons Edge St[facility] Choice [facility] May 09, 2024 11:19 AM Consult Order COMMUNITY [facility]ARD[facility]OLOG[facility] Cons Edge [facility] Lab Results: +/- 30 days of [...] Range Comment May 02, 2024 09:24 AM [facility] HEMOGLOBIN A1C PANEL Specimen Type: BLOOD Comment: Values obtained from A1C measurements can vary. For atypical A1C assays, a reported value of 7.0 could actually be between 6.72 and 7.28 if measured by a reference method. A reported value of 9.0 could actually be between 8.73 and 9.27. Ref: http://www.ngs p.org/CAPdata. asp Ordering Provider: SOLOMON CASH F Report Released Date/Time: Apr 27, 2024 11:20 AM Reporting Lab: [facility] [address] [address] Performing Lab: [address] [address] HEMOGLOBIN A1C 5.6 4.0-5.6 May 02, 2024 09:24 AM [facility] LIPID PANEL FASTING Specimen Type: SERUM Comment: Hemolysis present analysis cannot be performed. Hemolysis present may falsly elevate Potassium Total and Direct Bili, Iron, AST, %Fe. Ordering Provider: SOLOMON CASH F Report Released Date/Time: Apr 27, 2024 11:20 AM Reporting Lab: [facility] [address] [facility] [address] Performing Lab: [address] [address] CHOLESTEROL 85 mg/dL TRIGLYCERIDE 130 mg/dL 0-150 LDL calculated 29 mg/dL 0-129 CHOL/HDL 2.8 HDL CHOLESTEROL 30 mg/dL L 40-60 May 02, 2024 09:24 AM [facility] LIVER FUNCTION Specimen Type: SERUM Comment: Hemolysis present analysis cannot be performed. Hemolysis present may falsly elevate Potassium Total and Direct Bili, Iron, AST, %Fe. Ordering Provider: SOLOMON CASH Report Released Date/Time: Apr 27, 2024 11:20 AM Reporting Lab: [address] [address] Performing Lab: [address] [address] PROTEIN,TOTAL 6.2 g/dL 6.0-8.3 ALBUMIN 3.8 g/dL 3.5-5.0 ALKALINE PHOSPHATASE 35 U/L L 40-150 AST 22 U/L 5-34 ALT 12 U/L BILIRUBIN, TOTAL comment mg/dL 0.2-1.2 May 02, 2024 09:24 AM [facility] BASIC METABOLIC PANEL (fasting) Specimen Type: SERUM Comment: Hemolysis present analysis cannot be performed. Hemolysis present may falsly elevate Potassium Total and Direct Bili, Iron, AST, %Fe. Ordering Provider: SOLOMON CASH Report Released Date/Time: Apr 27, 2024 11:20 AM Reporting Lab: [address] [address] Performing Lab: [address] [address] UREA NITROGEN 24 mg/dL 7-25 GLUCOSE 93 mg/dL 65-100 SODIUM 140 mmol/L 135-145 POTASSIUM 5.1 mmol/L H 3.5-5.0 CHLORIDE 112 mmol/L H 100-110 CO2 19 meq/L L 20-30 CREATININE, Serum 0.87 mg/dL 0.50-1.40 eGFR(CKD-EPI 2020) 84 mL/min >60 Social History: Smoking Status (Most current) and Tobacco Use (All prior to encounter date) This section includes the most current, and the historical, smoking and tobacco- related health factors from the [facility] where the Encounter took place. Current Smoking Status This section includes the most current smoking, or tobacco-related health factor, from the [place] facility where the Encounter took place. Date/Time Current Smoking Status Comment [facility] Dec 21, 2023 11:40 AM VA-TOBACCO QUIT 15 YRS OR MORE [place] [facility] [place] [facility] Tobacco Use History This section includes a history of the smoking, or tobacco-related health factors, that were collected on or before the date of the Encounter. The data comes from the [place] facility where the Encounter took place. Date/Time Smoking Status/Tobac co Use Comment Facility Dec 21, 2023 11:40 AM VA-TOBACCO QUIT 15 YRS OR MORE [place] [facility] [place] [facility] Oct 31, 2022 11:30 AM VA-TOBACCO FORMER USER [facility] [place] [facility] Oct 31, 2022 11:30 AM VA-TOBACCO QUIT 15 YRS OR MORE [place] [facility] [place] [facility] Sep 17, 2021 03:00 PM VA-TOBACCO FORMER USER [place] [facility] [place] [facility] Sep 17, 2021 03:00 PM VA-TOBACCO QUIT 15 YRS OR MORE [place] [facility] [place] [facility] Aug 15, 2020 10:00 AM VA-TOBACCO FORMER USER [place] [facility] [place] [facility] Aug 15, 2020 10:00 AM VA-TOBACCO QUIT 15 YRS OR MORE [place] [facility] [place] [facility] May 12, 2019 03:07 PM VA-TOBACCO FORMER USER [place] [facility] [place] [facility] May 12, 2019 03:07 PM VA-TOBACCO QUIT 15 YRS OR MORE [place] [facility] [place] [facility] May 31, 2018 01:08 PM VA-TOBACCO FORMER USER [facility] [place] [facility] May 31, 2018 01:08 PM VA-TOBACCO QUIT 15 YRS OR MORE [facility] [place] [facility] Feb 16, 2017 01:33 PM QUIT TOBACCO USE > 7 YEARS AGO quit 16 years ago [place] [facility] [place] [facility] Nov 13, 2015 03:48 PM QUIT TOBACCO USE > 7 YEARS AGO . [facility] [place] [facility] May 12, 2013 12:49 PM QUIT TOBACCO USE > 7 YEARS AGO quit 2001 [place] [facility] [place] [facility] Advance Directives: All historical and current Section [...] Nov 03, 2022 ADVANCE DIRECTIVE LENORA CARCAMO [facility] Aug 16, 2020 ADVANCE DIRECTIVE EDMUND MORGAN [facility] Radiology Reports: +/- 30 days of [...] 2024 10:17 AM ABDOMINAL ULTRASOUND: CHAR TATE [id number] -1935 M Exm Date: MAR 29, 2024@10:17 Req Phys: KIARA CASH Loc: CWM/NO/SICK CALL PA (Req'g Loc Img Loc: ULTRASOUND Service: [place] [facility] [place] [facility] [address] (Case [id number] COMPLETE) ULTRASOUND ABDOMEN LIMITED (US Detailed) CPT:36402 Reason for Study: Liver Clinical History: There is some prominence of the hepatic shadow with a suggested hepatic granuloma on plain film today. Report Status: Verified Date Reported: MAR 29, 2024 Date Verified: MAR 29, 2024 Field Pipelines Supervisor E-Sig: Report: ULTRASOUND ABDOMEN LIMITED [PRINTSET] HISTORY: [...] acute cholecystitis. READING PHYSICIAN: Cintia Campbell M.D. -[id number] 03/29/2024 14:38 EDT [facility] [phone] (For Medical Practitioner Use Only) Attention Patients / Veterans: If you have questions or concerns about these test results, please contact your ordering provider or primary care team. Primary Diagnostic Code: NO ALERT REQUIRED Primary Interpreting Staff: RADIOLOGY,OUTSIDE SERVICE, Staff Physician / RADIOLOGY,OUTSIDE SERVICE [facility] Mar 22, 2024 10:50 AM ABDOMEN (2 VIEWS): [facility] [id number] -[address] [facility] Date: MAR 22, 2024@10:50 Req Phys: LILIYA CHOWDHURY Loc: CWM/NO/SICK CALL PA (Req'g Loc Img Loc: [facility]/BUILDING 1 Service: Unknown [facility] [place] [address] (Case [id number] COMPLETE) ABDOMEN (2 VIEWS) (RAD Detailed) CPT:79330 Reason for Study: constipation x 10 days Clinical History: Report Status: Verified Date Reported: MAR 22, 2024 Date Verified: MAR 22, 2024 Field Pipelines Supervisor E-Sig: Report: ABDOMEN (2 VIEWS) Clinical History: [...] fecal burden. READING PHYSICIAN: Adrien Rod M.D. -[id number] 03/22/2024 11:23 EDT [facility] [phone] (For Medical Practitioner Use Only) Attention Patients / Veterans: If you have questions or concerns about these test results, please contact your ordering provider or primary care team. Primary Diagnostic Code: NO ALERT REQUIRED Primary Interpreting Staff: RADIOLOGY,OUTSIDE SERVICE, Staff Physician / RADIOLOGY,OUTSIDE SERVICE [facility] Encounter Notes: All associated encounter notes This section contains the clinical notes associated to the Encounter. Date/Time Encounter Note(s) Provider Source Apr 21, 2024 02:14 PM ADDENDUM: LOCAL TITLE: Addendum STANDARD TITLE: ADDENDUM DATE OF NOTE: APR 21, 2024@14:14:27 ENTRY DATE: APR 21, 2024@14:14:28 AUTHOR: SABRINA RAY EXP COSIGNER: URGENCY: STATUS: COMPLETED CANCEL MESSAGE PT FOUND MED. /elizabeth/ SABRINA RAY Medical Physician Support Coordinator Signed: 04/21/2024 14:15 Receipt Acknowledged By: 04/21/2024 14:22 /es/ JANES DALLAS RN REGISTERED NURSE 04/21/2024 15:08 /es/ GATITO HOUSTON LPN --- Original Document --- 04/21/24 CCC: SCHEDULING ADMINISTRATION: Patient Demographics Patient Name: CHAR TATE Patient Primary Phone: [phone] Patient Primary Address: [place] [address] Patient : 1935 Patient Age: 88 Caller/Recipient Relation to Patient: Self Caller Name: CHAR TATE Administrative Administrative Note Reason: Medication Renewal [facility] Medications Refill/Renewal Request: Anaya , significant other with patient states, He is out of med Tamsulosin, wants to pick it up at the [facility] for tomorrow-Thursday04/22/2024, and to call the cell phone # on file to confirm med is at the window, (last fill of this medication was 02/28/2024 for 90 days, so not due until end of 05/2024), they are not sure why they don't have any more. IMPORTANT: This note was created by [facility] Clinical Contact Center staff. Please do not alert the staff member by adding them as a signer for future communications. Alerts are not monitored by this user. /elizabeth/ LIGIA MARINO [facility] Signed: 04/21/2024 13:47 Receipt Acknowledged By: 04/21/2024 14:22 /es/ JANES DALLAS, KIAH REGISTERED NURSE 04/21/2024 14:25 /eliazbeth/ Kiara Cash PA-C STAFF PHYSICIAN COMPOSING ROOM MACHINIST APPRENTICE SABRINA RAY [facility] [place] [facility] Apr 21, 2024 01:47 PM ADMINISTRATIVE NOT E: LOCAL TITLE: CCC: SCHEDULING ADMINISTRATION STANDARD TITLE: ADMINISTRATIVE NOTE DATE OF NOTE: APR 21, 2024@13:47:46 ENTRY DATE: APR 21, 2024@13:47:46 AUTHOR: LIGIA MARINO EXP COSIGNER: URGENCY: STATUS: COMPLETED CCC: SCHEDULING ADMINISTRATION Has ADDENDA Patient Demographics Patient Name: CHAR TATE Patient Primary Phone: [phone] Patient Primary Address: [place] [address] Patient : 1935 Patient Age: 88 Caller/Recipient Relation to Patient: Self Caller Name: CHAR TATE Administrative Administrative Note Reason: Medication Renewal [facility] Medications Refill/Renewal Request: Anaya , significant other with patient states, He is out of med Tamsulosin, wants to pick it up at the [facility] for tomorrow-Thursday04/22/2024, and to call the cell phone # on file to confirm med is at the window, (last fill of this medication was 02/28/2024 for 90 days, so not due until end of 05/2024), they are not sure why they don't have any more. IMPORTANT: This note was created by [facility] Clinical Contact Center staff. Please do not alert the staff member by adding them as a signer for future communications. Alerts are not monitored by this user. /elizabeth/ LIGIA MARINO [facility] Signed: 04/21/2024 13:47 Receipt Acknowledged By: 04/21/2024 14:22 /es/ JANES DALLAS, RN REGISTERED NURSE 04/21/2024 14:25 /es/ Kiara Cash PA-C STAFF PHYSICIAN COMPOSING ROOM MACHINIST APPRENTICE 04/21/2024 ADDENDUM STATUS: COMPLETED CANCEL MESSAGE PT FOUND MED. /es/ SABRINA RAY Medical Physician Support Coordinator Signed: 04/21/2024 14:15 Receipt Acknowledged By: 04/21/2024 14:22 /es/ JANES DALLAS, RN REGISTERED NURSE * AWAITING SIGNATURE * GATITO HOUSTON [facility]
--- OUTSIDE RECORDS SUMMARY | 2024-05-16 14:08 | XMS_ITS | Encounter Summary ---
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 (WNR) Jun 01, 2017 [id number] Krishan TATE PATIENT BCBS [facility] (WNR) MEDICARE ADVANTAGE [facility] (WNR) Jun 01, 2017 [id number] Krishan TATE PATIENT BCBS [facility] (WNR) MEDICARE ADVANTAGE [facility] (WNR) Jun 01, 2017 [id number] Krishan TATE PATIENT Selected Encounter This section includes the information on record at [place] for the Encounter. Date/Time Encounter Type Encounter Description Reason Provider Source May 06, 2024 11:58 AM COLLJ & INTERPJ DATA EA 30 D TELEPHONE/MEDICIN E ICD-10-CM G47.30 Sleep apnea, unspecified MEGHNA ROBBINS [facility] Encounter Template Text not used by [place] Assessments - Encounter Diagnoses This section includes the primary and secondary diagnoses documented for the Encounter. Date/Time Primary/Secondary Diagnosis Diagnosis Name Provider Source May 06, 2024 11:58 AM PRIMARY Sleep apnea, unspecified MEGHNA ROBBINS [facility] [place] [facility] Plan of Treatment: Future Appointments (+ 6 months) and Future Tests (+/- 45 days) The Plan of Treatment section includes future care activities for the patient from all [place] treatmentfacilities. This section includes future appointments and future orders which are active, pending or scheduled. Future Appointments This section includes appointments that were scheduled to occur 6 months from the date of the Encounter, up to a maximum of 20 appointments. The data comes from all [place] treatment facilities. Appointment Date/Time Appointment Type Appointme nt Facility Name May 09, 2024 10:30 AM AMBULATORY - MEDICINE [place] [facility] [place] [facility] May 16, 2024 02:15 PM AMBULATORY - MEDICINE [place] [facility] [place] [facility] Jun 03, 2024 03:00 PM AMBULATORY - MEDICINE [place] [facility] [place] [facility] Jun 16, 2024 02:30 PM AMBULATORY - MEDICINE [place] [facility] [place] [facility] Jun 22, 2024 10:50 AM AMBULATORY - MEDICINE [place] [facility] [place] [facility] Aug 05, 2024 11:00 AM AMBULATORY - MEDICINE [place] [facility] [place] [facility] Aug 19, 2024 11:00 AM AMBULATORY - MEDICINE [place] [facility] [place] [facility] Sep 13, 2024 11:00 AM AMBULATORY - MEDICINE [place] [facility] [place] [facility] Sep 13, 2024 11:30 AM AMBULATORY - MEDICINE [place] [facility] [place] [facility] Active, Pending, and Scheduled Orders This section includes a listing of several types of active, pending, and scheduled orders, including clinic medications orders, diagnostic test orders, procedure orders and consult orders; where the start date of the order is 45 days before the date of the Encounter or 45 days after the date of theEncounter. The data comes from all [place] treatment facilities. Test Date/Time Test Type Test Details Facility Name Mar 31, 2024 08:02 AM Consult [facility] Custodian Supervisor's Choice [facility] May 09, 2024 11:19 AM Consult [facility] Custodian Supervisor's Choice [facility] Lab Results: +/- 30 days of the encounter This section includes the Chemistry and Hematology Lab Results on record with [place] for the patient. Radiology Reports and Pathology Reports are provided separately, in subsequent sections. Lab Results This section contains the Chemistry/Hematology Results that were resulted 30 days before or 30 daysafter the date of the Encounter. Date/Time Source Result Type Result - Unit Interpretation Reference Range Comment May 02, 2024 09:24 AM [facility] HEMOGLOBIN A1C PANEL Specimen Type: BLOOD [...] Apr 27, 2024 11:20 AM Reporting Lab: [address] [address] Performing Lab: [address] [address] HEMOGLOBIN A1C 5.6 4.0-5.6 May 02, 2024 09:24 AM [facility] LIPID PANEL FASTING Specimen Type: SERUM Comment: Hemolysis present analysis cannot be performed. Hemolysis present may falsly elevate Potassium Total and Direct Bili, Iron, AST, %Fe. Ordering Provider: SOLOMON ESPARZA Report Released Date/Time: Apr 27, 2024 11:20 AM Reporting Lab: [address] [address] Performing Lab: [address] [address] CHOLESTEROL 85 mg/dL TRIGLYCERIDE 130 mg/dL 0-150 LDL calculated 29 mg/dL 0-129 CHOL/HDL 2.8 HDL CHOLESTEROL 30 mg/dL L 40-60 May 02, 2024 09:24 AM [facility] LIVER FUNCTION Specimen Type: SERUM Comment: Hemolysis present analysis cannot be performed. Hemolysis present may falsly elevate Potassium Total and Direct Bili, Iron, AST, %Fe. Ordering Provider: SOLOMON ESPARZA F Report Released Date/Time: Apr 27, 2024 11:20 AM Reporting Lab: [address] [address] Performing Lab: [address] [address] PROTEIN,TOTAL 6.2 g/dL 6.0-8.3 ALBUMIN 3.8 g/dL 3.5-5.0 ALKALINE PHOSPHATASE 35 U/L L 40-150 AST 22 U/L 5-34 ALT 12 U/L BILIRUBIN, TOTAL comment mg/dL 0.2-1.2 May 02, 2024 09:24 AM [facility] BASIC METABOLIC PANEL (fasting) Specimen Type: SERUM Comment: Hemolysis present analysis cannot be performed. Hemolysis present may falsly elevate Potassium Total and Direct Bili, Iron, AST, %Fe. Ordering Provider: SOLOMON ESPARZA F Report Released Date/Time: Apr 27, 2024 11:20 AM Reporting Lab: [address] [address] Performing Lab: [address] [address] UREA NITROGEN 24 mg/dL 7-25 GLUCOSE 93 [...] and tobacco- related health factors from the [place] facility where the Encounter took place. Current Smoking Status This section includes the most current smoking, or tobacco-related health factor, from the [place] facility where the Encounter took place. Date/Time Current Smoking Status Comment Facil it Dec 21, 2023 11:40 AM VA-TOBACCO QUIT 15 YRS OR MORE [place] [facility] [place] [facility] Tobacco Use History This section includes a history of the smoking, or tobacco-related health factors, that were collected on or before the date of the Encounter. The data comes from the [place] facility where the Encounter took place. Date/Time Smoking Status/Tobac co Use Comment [facility] Dec 21, 2023 11:40 AM VA-TOBACCO QUIT 15 YRS OR MORE [facility] [place] [facility] Oct 31, 2022 11:30 AM VA-TOBACCO FORMER USER [facility] [place] [facility] Oct 31, 2022 11:30 AM VA-TOBACCO QUIT 15 YRS OR MORE [facility] [place] [facility] Sep 17, 2021 03:00 PM VA-TOBACCO FORMER USER [facility] [place] [facility] Sep 17, 2021 03:00 PM VA-TOBACCO QUIT 15 YRS OR MORE [facility] [place] [facility] Aug 15, 2020 10:00 AM VA-TOBACCO FORMER USER [facility] [place] [facility] Aug 15, 2020 10:00 AM VA-TOBACCO QUIT 15 YRS OR MORE [facility] [place] [facility] May 12, 2019 03:07 PM VA-TOBACCO FORMER USER [facility] [place] [facility] May 12, 2019 03:07 PM VA-TOBACCO QUIT 15 YRS OR MORE [facility] [place] [facility] May 31, 2018 01:08 PM VA-TOBACCO FORMER USER [facility] [place] [facility] May 31, 2018 01:08 PM VA-TOBACCO QUIT 15 YRS OR MORE [facility] [place] [facility] Feb 16, 2017 01:33 PM QUIT TOBACCO USE > 7 YEARS AGO quit 16 years ago [facility] Nov 13, 2015 03:48 PM QUIT TOBACCO USE > 7 YEARS AGO . [facility] May 12, 2013 12:49 PM QUIT TOBACCO USE > 7 YEARS AGO quit 2001 [facility] Advance Directives: All historical and current Section Date Range: From patient's date of to the date document was created. This section includes ALL of a patient's completed or amended [place] Advance and Rescinded Directives. The entries below indicate that a directive exists for the patient, but an actual copy is not included with this document. The data comes from all [place] facilities. Date Advance Directives Provider Source Nov 03, 2022 ADVANCE DIRECTIVE LENORA CARCAMO [facility] Aug 16, 2020 ADVANCE DIRECTIVE ROBERTANSHUEDMUND L [facility] Encounter Notes: All associated encounter notes This section contains the clinical notes associated to the Encounter. Date/Time Encounter Note(s) Provider Source May 06, 2024 11:58 AM SLEEP MEDICINE NOT E: LOCAL TITLE: CPAP CLINIC NOTE STANDARD TITLE: SLEEP MEDICINE NOTE DATE OF NOTE: MAY 06, 2024@11:58 ENTRY DATE: MAY 06, 2024@11:59 AUTHOR: MEGHNA ROBBINS COSIGNER: URGENCY: STATUS: COMPLETED Patient diagnosed with sleep apnea data reviewed for Cpap renewal and supplies ordered from [facility]. He is using the Young FX with medium cushions. [facility] is out of hoses and tubs so will be ordered from [place]. [facility] called and is requesting the following CPAP supplies: filter, mask, tube, water tank [employer]PL[employer] Patient APAP compliance data reviewed via the [employer] program for the last 90 days. SETTINGS: Apap 11 - [id number] TOTAL DAYS USED 90 DAYS USED > 4hrs 88 AVG USAGE 7 hours AVG PRESSURE [id number] LEAK 22 AHI: 2 Central 0 These results indicate is compliant. Coleman's APAP Prescription will be renewed for 1 year. If pt has any questions or concerns regarding Apap, he/she can contact Respiratory at [phone] extension [phone]. /es/ MEGHNA ROBBINS CRT RESPIRATORY THERAPIST Signed: 05/06/2024 12:05 MEGHNA ROBBINS
--- OUTSIDE RECORDS SUMMARY | 2024-05-16 14:08 | XMS_ITS | Encounter Summary ---
Author Name [facility] [place] Organization [facility] [place] Address [address] [place] [address] Care Team Providers Care Bias Machine Operator Helper Name Role Phone KIARA ESPARZA Primary Care [...] Colbert's Name Patient's Relationship to Policy Colbert [facility] (WNR) MEDICARE [facility] (WNR) Jun 01, 2017 [id number] Krishan TATE PATIENT [facility] (WNR) MEDICARE [facility] (WNR) Jun 01, 2017 [id number] Krishan TATE PATIENT [facility] (WNR) MEDICARE [facility] (WNR) Jun 01, 2017 [id number] Krishan TATE PATIENT Selected Encounter This section includes the information on record at [place] for the Encounter. Date/Time Encounter Type Encounter Description Reason Pro vider Source May 06, 2024 11:09 AM Outpatient Encounter RESPIRATORY THERAPY IHE Encounter Template Text not used by ND Plan of Treatment: Future Appointments (+ 6 months) and Future Tests (+/- 45 days) The Plan of Treatment section includes future care activities for the patient from all [place] treatmentfacilities. This section includes future appointments and future orders which are active, pending or scheduled. Future Appointments This section includes appointments that were scheduled to occur 6 months from the date of the Encounter, up to a maximum of 20 appointments. The data comes from all [place] treatment [facility]. Appointment Date/Time Appointment Type Appointme nt Facility Name May 09, 2024 10:30 AM AMBULATORY - MEDICINE ND C [facility] [place] [facility] May 16, 2024 02:15 PM AMBULATORY - MEDICINE ND C [facility] [place] [facility] Jun 03, 2024 03:00 PM AMBULATORY - MEDICINE ND C [facility] [place] [facility] Jun 16, 2024 02:30 PM AMBULATORY - MEDICINE ND C N[facility] [place] [facility] Jun 22, 2024 10:50 AM AMBULATORY - MEDICINE ND C N[facility] [place] [facility] Aug 05, 2024 11:00 AM AMBULATORY - MEDICINE ND C N[facility]L [facility] [place] [facility] Aug 19, 2024 11:00 AM AMBULATORY - MEDICINE ND C [facility] [place] [facility] Sep 13, 2024 11:00 AM AMBULATORY - MEDICINE ND C N[facility] [place] [facility] Sep 13, 2024 11:30 AM AMBULATORY - MEDICINE ND C N[facility] [place] [facility] Active, Pending, and Scheduled Orders This section includes a listing of several types of active, pending, and scheduled orders, including clinic medications orders, diagnostic test orders, procedure orders and consult orders; where the start date of the order is 45 days before the date of the Encounter or 45 days after the date of theEncounter. The data comes from all [facility]. Test Date/Time Test Type Test Details Facility Name Mar 31, 2024 08:02 AM Consult Order [facility]ARE-NEUROLOGY Cons Senior Gamemaster's Choice ND [facility] [place] [facility] May 09, 2024 11:19 AM Consult Order [facility] Cons Senior Gamemaster's Choice [facility] Lab Results: +/- 30 days of the encounter This section includes the Chemistry and Hematology Lab Results on record with ND for the patient. Radiology Reports and Pathology Reports are provided separately, in subsequent sections. Lab Results This section contains the Chemistry/Hematology Results that were resulted 30 days before or 30 daysafter the date of the Encounter. Date/Time Source Result Type Result - Unit Interpretation Reference Range Comment May 02, 2024 09:24 AM [facility] HEMOGLOBIN A1C PANEL Specimen Type: BLOOD [...] Apr 27, 2024 11:20 AM Reporting Lab: [address] [address] Performing Lab: [address] [address] HEMOGLOBIN A1C 5.6 4.0-5.6 May 02, 2024 09:24 AM [facility] LIPID PANEL FASTING Specimen Type: SERUM Comment: Hemolysis present analysis cannot be performed. Hemolysis present may falsly elevate Potassium Total and Direct Bili, Iron, AST, %Fe. Ordering Provider: SOLOMON ESPARZA F Report Released Date/Time: Apr 27, 2024 11:20 AM Reporting Lab: [address] [address] Performing Lab: [address] [address] CHOLESTEROL 85 mg/dL TRIGLYCERIDE 130 mg/dL 0-150 LDL calculated 29 mg/dL 0-129 CHOL/HDL 2.8 HDL CHOLESTEROL 30 mg/dL L 40-60 May 02, 2024 09:24 AM [facility] LIVER FUNCTION Specimen Type: SERUM Comment: Hemolysis present analysis cannot be performed. Hemolysis present may falsly elevate Potassium Total and Direct Bili, Iron, AST, %Fe. Ordering Provider: SOLOMON ESPARZA F Report Released Date/Time: Apr 27, 2024 11:20 AM Reporting Lab: [facility] [address] [address] Performing Lab: [address] [address] PROTEIN,TOTAL 6.2 g/dL 6.0-8.3 ALBUMIN 3.8 g/dL 3.5-5.0 ALKALINE PHOSPHATASE 35 U/L L 40-150 AST 22 U/L 5-34 ALT 12 U/L BILIRUBIN, TOTAL comment mg/dL 0.2-1.2 May 02, 2024 09:24 AM [facility] BASIC METABOLIC PANEL (fasting) Specimen Type: SERUM Comment: Hemolysis present analysis cannot be performed. Hemolysis present may falsly elevate Potassium Total and Direct Bili, Iron, AST, %Fe. Ordering Provider: SOLOMON ESPARZA F Report Released Date/Time: Apr 27, 2024 11:20 AM Reporting Lab: [address] [address] Performing Lab: [address] [address] UREA NITROGEN 24 mg/dL 7-25 GLUCOSE 93 [...] and tobacco- related health factors from the [place] facility where the Encounter took place. Current Smoking Status This section includes the most current smoking, or tobacco-related health factor, from the ND facility where the Encounter took place. Date/Time Current Smoking Status Comment Facil ity Dec 21, 2023 11:40 AM VA-TOBACCO QUIT 15 YRS OR MORE ND CNT [facility] [place] [facility] Tobacco Use History This section includes a history of the smoking, or tobacco-related health factors, that were collected on or before the date of the Encounter. The data comes from the [place] facility where the Encounter took place. Date/Time Smoking Status/Tobac co Use Comment [facility] Dec 21, 2023 11:40 AM VA-TOBACCO QUIT 15 YRS OR MORE ND CN[facility]L [facility] [place] [facility] Oct 31, 2022 11:30 AM VA-TOBACCO FORMER USER [facility] [place] [facility] Oct 31, 2022 11:30 AM VA-TOBACCO QUIT 15 YRS OR MORE VA [facility] [place] [facility] Sep 17, 2021 03:00 PM VA-TOBACCO FORMER USER [facility] [place] [facility] Sep 17, 2021 03:00 PM VA-TOBACCO QUIT 15 YRS OR MORE ND CNTR[facility] [place] [facility] Aug 15, 2020 10:00 AM VA-TOBACCO FORMER USER ND CNTRL [facility] [place] [facility] Aug 15, 2020 10:00 AM VA-TOBACCO QUIT 15 YRS OR MORE ND CN[facility] [place] [facility] May 12, 2019 03:07 PM VA-TOBACCO FORMER USER VA [facility] [place] [facility] May 12, 2019 03:07 PM VA-TOBACCO QUIT 15 YRS OR MORE ND CNTR[facility] [place] [facility] May 31, 2018 01:08 PM VA-TOBACCO FORMER USER [facility] [place] [facility] May 31, 2018 01:08 PM VA-TOBACCO QUIT 15 YRS OR MORE ND [facility] [place] [facility] Feb 16, 2017 01:33 PM QUIT TOBACCO USE > 7 YEARS AGO quit 16 years ago ND [facility] [place] [facility] Nov 13, 2015 03:48 PM QUIT TOBACCO USE > 7 YEARS AGO . [facility] [place] [facility] May 12, 2013 12:49 PM QUIT TOBACCO USE > 7 YEARS AGO quit 2001 ND [facility] [place] [facility] Advance Directives: All historical and current Section Date Range: From patient's date of to the date document was created. This section includes ALL of a patient's completed or amended [place] Advance and Rescinded Directives. The entries below indicate that a directive exists for the patient, but an actual copy is not included with this document. The data comes from all [place] facilities. Date Advance Directives Provider Source Nov 03, 2022 ADVANCE DIRECTIVE LENORA CARCAMO ND CN TRL [facility] Aug 16, 2020 ADVANCE DIRECTIVE EDMUND MORGAN [facility] Encounter Notes: All associated encounter notes This section contains the clinical notes associated to the Encounter. Date/Time Encounter Note(s) Provider Source May 06, 2024 11:09 AM TELEPHONE ENCOUNTE R NOTE: LOCAL TITLE: TELEPHONE NOTE/SPECIALTY CLINIC STANDARD TITLE: TELEPHONE ENCOUNTER NOTE DATE OF NOTE: MAY 06, 2024@11:09 ENTRY DATE: MAY 06, 2024@11:09:46 AUTHOR: NATALI SMITH EXP COSIGNER: URGENCY: STATUS: COMPLETED [facility] called and is requesting the following CPAP supplies: filter, mask, tube, water tank Address and phone confirmed as correct. /elizabeth/ NATALI SMITH AWARD CLERK Signed: 05/06/2024 11:10 Receipt Acknowledged By: 05/09/2024 11:05 /elizabeth/ NOAH ALY,VALDO RESPIRATORY THERAPIST 05/09/2024 12:27 /elizabeth/ DANNY BRISENO RESPIRATORY THERAPIST 05/06/2024 11:58 /elizabeth/ MEGHNA ROBBINS CRT RESPIRATORY THERAPIST NATALI SMITH [facility]
--- OUTSIDE RECORDS SUMMARY | 2024-05-16 14:08 | XMS_ITS | Encounter Summary ---
Author Name [facility] of Vetera Affairs ([place]) Organization [facility] of [place] [facility] [place]) Address [address] [place] [address] Care Team Providers Care Forest Manager Name Role Phone KIARA SEPARZA Primary Care Provider Unavail able Insurance Providers: [...] Name Patient's Relationship to Policy Colbert [facility] (WNR) MEDICARE [facility] (WNR) Jun 01, 2017 [id number] Krishan TATE PATIENT [facility] (WNR) MEDICARE [facility] (WNR) Jun 01, 2017 [id number] [phone] Krishan TATE PATIENT [facility] (WNR) MEDICARE ADVANTAGE [facility] (WNR) Jun 01, 2017 [id number] Krishan TATE PATIENT Selected Encounter This section includes the information on record at MD for the Encounter. Date/Time Encounter Type Encounter Description Reason Pro vider Source Apr 20, 2024 10:44 AM Outpatient Encounter OPTOMETRY IHE Encounter Template Text not used by MD [...] The data comes from all MD treatment [facility]. Appointment Date/Time Appointment Type Appointme nt Facility Name May 09, 2024 10:30 AM AMBULATORY - MEDICINE MD C [facility] [place] [facility] May 16, 2024 02:15 PM AMBULATORY - MEDICINE MD C [facility] [place] [facility] Jun 03, 2024 03:00 PM AMBULATORY - MEDICINE MD C [facility] [place] [facility] Jun 16, 2024 02:30 PM AMBULATORY - MEDICINE MD C [facility] [place] [facility] Jun 22, 2024 10:50 AM AMBULATORY - MEDICINE MD C [facility] [place] [facility] Aug 05, 2024 11:00 AM AMBULATORY - MEDICINE MD C [facility] [place] [facility] Aug 19, 2024 11:00 AM AMBULATORY - MEDICINE MD C [facility] [place] [facility] Sep 13, 2024 11:00 AM AMBULATORY - MEDICINE MD C [facility] [place] [facility] Sep 13, 2024 11:30 AM AMBULATORY - MEDICINE MD C [facility] [place] [facility] Active, Pending, and Scheduled Orders This section includes a listing of several types of active, pending, and scheduled orders, including clinic medications orders, diagnostic test orders, procedure orders and consult orders; where the start date of the order is 45 days before the date of the Encounter or 45 days after the date of theEncounter. The data comes from all [facility]. Test Date/Time Test Type Test Details Facility Name Mar 31, 2024 08:02 AM Consult Order COMMUNITY CARE-NEUROLOGY Cons Entry Level Administrative Assistant's Choice MD [facility] [place] [facility] May 09, 2024 11:19 AM Consult [facility] Cons Entry Level Administrative Assistant's Choice [facility] Lab Results: +/- 30 days of [...] Range Comment May 02, 2024 09:24 AM [facility] HEMOGLOBIN A1C PANEL Specimen Type: BLOOD [...] Apr 27, 2024 11:20 AM Reporting Lab: [address] [address] Performing Lab: [address] [address] HEMOGLOBIN A1C 5.6 4.0-5.6 May 02, 2024 09:24 AM [facility] LIPID PANEL FASTING Specimen Type: SERUM Comment: Hemolysis present analysis cannot be performed. Hemolysis present may falsly elevate Potassium Total and Direct Bili, Iron, AST, %Fe. Ordering Provider: SOLOMON ESPARZA F Report Released Date/Time: Apr 27, 2024 11:20 AM Reporting Lab: [address] [address] Performing Lab: [address] [address] CHOLESTEROL 85 mg/dL TRIGLYCERIDE 130 mg/dL 0-150 LDL calculated 29 mg/dL 0-129 CHOL/HDL 2.8 HDL CHOLESTEROL 30 mg/dL L 40-60 May 02, 2024 09:24 AM [facility] LIVER FUNCTION Specimen Type: SERUM Comment: Hemolysis present analysis cannot be performed. Hemolysis present may falsly elevate Potassium Total and Direct Bili, Iron, AST, %Fe. Ordering Provider: SOLOMON ESPARZA F Report Released Date/Time: Apr 27, 2024 11:20 AM Reporting Lab: [facility] [address] [facility] [address] Performing Lab: [address] [address] PROTEIN,TOTAL 6.2 g/dL 6.0-8.3 ALBUMIN 3.8 g/dL 3.5-5.0 ALKALINE PHOSPHATASE 35 U/L L 40-150 AST 22 U/L 5-34 ALT 12 U/L BILIRUBIN, TOTAL comment mg/dL 0.2-1.2 May 02, 2024 09:24 AM [facility] BASIC METABOLIC PANEL (fasting) Specimen Type: SERUM Comment: Hemolysis present analysis cannot be performed. Hemolysis present may falsly elevate Potassium Total and Direct Bili, Iron, AST, %Fe. Ordering Provider: SOLOMON ESPARZA F Report Released Date/Time: Apr 27, 2024 11:20 AM Reporting Lab: [address] [address] Performing Lab: [address] [address] UREA NITROGEN 24 mg/dL 7-25 GLUCOSE 93 [...] ity Dec 21, 2023 11:40 AM VA-TOBACCO FORMER USER MD CNTRL [facility] [place] [facility] Tobacco Use History This section includes a history of the smoking, or tobacco-related health factors, that were collected on or before the date of the Encounter. The data comes from the MD facility where the Encounter took place. Date/Time Smoking Status/Tobac co Use Comment [facility] Dec 21, 2023 11:40 AM VA-TOBACCO QUIT 15 YRS OR MORE [facility] [place] [facility] Oct 31, 2022 11:30 AM VA-TOBACCO FORMER USER [facility] [place] [facility] Oct 31, 2022 11:30 AM VA-TOBACCO QUIT 15 YRS OR MORE VA [facility] [place] [facility] Sep 17, 2021 03:00 PM VA-TOBACCO FORMER USER [facility] [place] [facility] Sep 17, 2021 03:00 PM VA-TOBACCO QUIT 15 YRS OR MORE MD CNTRL [facility] [place] [facility] Aug 15, 2020 10:00 AM VA-TOBACCO FORMER USER MD CNTRL [facility] [place] [facility] Aug 15, 2020 10:00 AM VA-TOBACCO QUIT 15 YRS OR MORE MD CNTR[facility] [place] [facility] May 12, 2019 03:07 PM VA-TOBACCO FORMER USER MD CNTRL [facility] [place] [facility] May 12, 2019 03:07 PM VA-TOBACCO QUIT 15 YRS OR MORE MD [facility]TR[facility] [place] [facility] May 31, 2018 01:08 PM VA-TOBACCO FORMER USER [facility] [place] [facility] May 31, 2018 01:08 PM VA-TOBACCO QUIT 15 YRS OR MORE MD CNTRL [facility] [place] [facility] Feb 16, 2017 01:33 PM QUIT TOBACCO USE > 7 YEARS AGO quit 16 years ago MD [facility]TR[facility] [place] [facility] Nov 13, 2015 03:48 PM QUIT TOBACCO USE > 7 YEARS AGO . [facility] [place] [facility] May 12, 2013 12:49 PM QUIT TOBACCO USE > 7 YEARS AGO quit 2001 MD [facility]TR[facility] [place] [facility] Advance Directives: All historical and current Section Date Range: From patient's date of to the date document was created. This section includes ALL of a patient's completed or amended MD Advance and Rescinded Directives. The entries below indicate that a directive exists for the patient, but an actual copy is not included with this document. The data comes from all MD facilities. Date Advance Directives Provider Source Nov 03, 2022 ADVANCE DIRECTIVE LENORA CARCAMO [facility] Aug 16, 2020 ADVANCE DIRECTIVE EDMUND MORGAN [facility] Radiology Reports: +/- 30 days of [...] the Encounter. The data comes from all MD treatment facilities. Date/Time Radiology Report Provider Source Mar 29, 2024 10:17 AM ABDOMINAL ULTRASOUND: CHAR TATE [id number] -[id number] M Exm Date: MAR 29, 2024@10:17 Req Phys: KIARA ESPARZA Loc: CWM/NO/SICK CALL PA (Req'g Loc Img Loc: ULTRASOUND Service: [place] [address] (Case [id number] COMPLETE) ULTRASOUND ABDOMEN LIMITED (US Detailed) CPT:09605 Reason for Study: Liver Clinical History: There is some prominence of the hepatic shadow with a suggested hepatic granuloma on plain film today. Report Status: Verified Date Reported: MAR 29, 2024 Date Verified: MAR 29, 2024 Clinical Information Systems Director E-Sig: Report: ULTRASOUND ABDOMEN LIMITED [PRINTSET] HISTORY: Liver COMPARISON: 03/22/2024 abdomen x-ray TECHNIQUE: Ultrasound of the right upper abdomen was performed at the local MD facility. 34 images were received by the MD National Teleradiology Program (NTP) for interpretation. FINDINGS: [...] acute cholecystitis. READING PHYSICIAN: Cintia Campbell M.D. -[id number] 03/29/2024 14:38 EDT [facility] BPTradiology Program [phone] (For Medical Practitioner Use Only) Attention Patients / Veterans: If you have questions or concerns about these test results, please contact your ordering provider or primary care team. Primary Diagnostic Code: NO ALERT REQUIRED Primary Interpreting Staff: RADIOLOGY,OUTSIDE SERVICE, Staff Physician / RADIOLOGY,OUTSIDE SERVICE [facility] Mar 22, 2024 10:50 AM ABDOMEN (2 VIEWS): [facility] [id number] -[id number] M [facility] Date: MAR 22, 2024@10:50 Req Phys: LILIYA CHOWDHURY Loc: CWM/NO/SICK CALL PA (Req'g Loc Img Loc: [facility]BUILDING 1 Service: [place] [address] (Case [id number] COMPLETE) ABDOMEN (2 VIEWS) (RAD Detailed) CPT:63204 Reason for Study: constipation x 10 days Clinical History: Report Status: Verified Date Reported: MAR 22, 2024 Date Verified: MAR 22, 2024 Clinical Information Systems Director E-Sig: Report: ABDOMEN (2 VIEWS) Clinical History: [...] fecal burden. READING PHYSICIAN: Adrien Rod M.D. -[id number] 03/22/2024 11:23 EDT [facility] National Teleradiology Program [phone] (For Medical Practitioner Use Only) Attention Patients / Veterans: If you have questions or concerns about these test results, please contact your ordering provider or primary care team. Primary Diagnostic Code: NO ALERT REQUIRED Primary Interpreting Staff: RADIOLOGY,OUTSIDE SERVICE, Staff Physician / RADIOLOGY,OUTSIDE SERVICE [facility] Encounter Notes: All associated encounter notes This section contains the clinical notes associated to the Encounter. Date/Time Encounter Note(s) Provider Source Apr 20, 2024 10:44 AM OPTOMETRY NOTE: LOCAL TITLE: OPTOMETRY NOTE STANDARD TITLE: OPTOMETRY NOTE DATE OF NOTE: APR 20, 2024@10:44 ENTRY DATE: APR 20, 2024@10:44:55 AUTHOR: SIDDHARTH GUO EXP COSIGNER: URGENCY: STATUS: COMPLETED Repaired one pair today. Replaced missings screw and adjusted. Clear pair. Note that and like the Big Twist size 60 for next pair. /elizabeth/ SIDDHARTH GUO SUPPLY TECHNICIAN Signed: 04/20/2024 10:55 Receipt Acknowledged By: 04/20/2024 11:04 /elizabeth/ STEPHANIE JOSÉ OPTOMETRY TECH SIDDHARTH GUO [facility]
--- OUTSIDE RECORDS SUMMARY | 2024-05-16 14:08 | XMS_ITS | Encounter Summary ---
Author Name [facility] [facility] [place] [facility] [place] [facility] [place] Address [address] [place] [address] Care Team Providers Care Title I Teacher Name Role Phone KIARA ESPARZA Primary [...] Colbert's Name Patient's Relationship to Policy Colbert [facility] (WNR) MEDICARE ADVANTAGE [facility] (WNR) Jun 01, 2017 [id number] [phone] Krishan TATE PATIENT [facility] (WNR) MEDICARE ADVANTAGE [facility] (WNR) Jun 01, 2017 [id number] Krishan TATE PATIENT [facility] (WNR) MEDICARE ADVANTAGE [facility] (WNR) Jun 01, 2017 [id number] Krishan TATE PATIENT Selected Encounter This section includes the information on record at [place] for the Encounter. Date/Time Encounter Type Encounter Description Reason Pro vider Source Apr 07, 2024 08:14 AM Outpatient Encounter EVENT (HISTORICAL) IHE Encounter Template Text not used by [place] Plan of Treatment: Future Appointments (+ 6 months) and Future Tests (+/- 45 days) The Plan of Treatment section includes future care activities for the patient from all [place] treatmentfacilities. This section includes future appointments and future orders which are active, pending or scheduled. Future Appointments This section includes appointments that were scheduled to occur 6 months from the date of the Encounter, up to a maximum of 20 appointments. The data comes from all [facility]. Appointment Date/Time Appointment Type Appointme nt Facility Name Apr 20, 2024 10:40 AM AMBULATORY - MEDICINE [place] [facility] [place] [facility] May 09, 2024 10:30 AM AMBULATORY MEDICINE [place] [facility] [place] [facility] May 16, 2024 02:15 PM AMBULATORY - MEDICINE [place] [facility] [place] [facility] Jun 03, 2024 03:00 PM AMBULATORY - MEDICINE [place] [facility] [place] [facility] Jun 16, 2024 02:30 PM AMBULATORY MEDICINE [place] [facility] [place] [facility] Jun 22, 2024 10:50 AM AMBULATORY - MEDICINE [place] [facility] [place] [facility] Aug 05, 2024 11:00 AM AMBULATORY - MEDICINE [place] [facility] [place] [facility] Aug 19, 2024 11:00 AM AMBULATORY - MEDICINE [place] [facility] [place] [facility] Sep 13, 2024 11:00 AM AMBULATORY - MEDICINE [place] [facility] [place] [facility] Sep 13, 2024 11:30 AM AMBULATORY MEDICINE [place] [facility] [place] [facility] [...] of theEncounter. The data comes from all [facility]. Test Date/Time Test Type Test Details Facility Name Mar 31, 2024 08:02 AM Consult Order [facility]-NEUROLOGY Cons [employer] Detailer's Choice [facility] May 09, 2024 11:19 AM Consult Order [facility]-CARDIOLOGY Cons [employer] Detailer[facility] Choice [facility] Lab Results: +/- 30 days of the encounter This section includes the Chemistry and Hematology Lab Results on record with [place] for the patient. Radiology Reports and Pathology Reports are provided separately, in subsequent sections. Lab Results This section contains the Chemistry/Hematology Results that were resulted 30 days before or 30 daysafter the date of the Encounter. Date/Time Source Result Type Result - Unit Interpretation Reference Range Comment May 02, 2024 09:24 AM [facility] HEMOGLOBIN A1C PANEL Specimen Type: BLOOD [...] Apr 27, 2024 11:20 AM Reporting Lab: [address] [address] Performing Lab: [address] [address] HEMOGLOBIN A1C 5.6 4.0-5.6 May 02, 2024 09:24 AM [facility] LIPID PANEL FASTING Specimen Type: SERUM Comment: Hemolysis present analysis cannot be performed. Hemolysis present may falsly elevate Potassium Total and Direct Bili, Iron, AST, %Fe. Ordering Provider: SOLOMON ESPARZA F Report Released Date/Time: Apr 27, 2024 11:20 AM Reporting Lab: [address] [address] Performing Lab: [address] [address] CHOLESTEROL 85 mg/dL TRIGLYCERIDE 130 mg/dL 0-150 LDL calculated 29 mg/dL 0-129 CHOL/HDL 2.8 HDL CHOLESTEROL 30 mg/dL L 40-60 May 02, 2024 09:24 AM [facility] LIVER FUNCTION Specimen Type: SERUM Comment: Hemolysis present analysis cannot be performed. Hemolysis present may falsly elevate Potassium Total and Direct Bili, Iron, AST, %Fe. Ordering Provider: SOLOMON ESPARZA F Report Released Date/Time: Apr 27, 2024 11:20 AM Reporting Lab: [facility] [address] [facility] [address] Performing Lab: [address] [address] PROTEIN,TOTAL 6.2 g/dL 6.0-8.3 ALBUMIN 3.8 g/dL 3.5-5.0 ALKALINE PHOSPHATASE 35 U/L L 40-150 AST 22 U/L 5-34 ALT 12 U/L BILIRUBIN, TOTAL comment mg/dL 0.2-1.2 May 02, 2024 09:24 AM [facility] BASIC METABOLIC PANEL (fasting) Specimen Type: SERUM Comment: Hemolysis present analysis cannot be performed. Hemolysis present may falsly elevate Potassium Total and Direct Bili, Iron, AST, %Fe. Ordering Provider: SOLOMON ESPARZA Report Released Date/Time: Apr 27, 2024 11:20 AM Reporting Lab: [facility] [address] [facility] [address] Performing Lab: [address] [address] UREA NITROGEN 24 mg/dL 7-25 GLUCOSE 93 [...] 08:06 AM 60 130/60 18 95 3 [place] [facility] [place] [facility] Social History: Smoking Status (Most current) and Tobacco Use (All prior to encounter date) This section includes the most current, and the historical, smoking and tobacco- related health factors from the [place] facility where the Encounter took place. Current Smoking Status This section includes the most current smoking, or tobacco-related health factor, from the [place] facility where the Encounter took place. Date/Time Current Smoking Status Comment [facility] Dec 21, 2023 11:40 AM VA-TOBACCO FORMER USER [place] [facility] [place] [facility] Tobacco Use History This section includes a history of the smoking, or tobacco-related health factors, that were collected on or before the date of the Encounter. The data comes from the [place] facility where the Encounter took place. Date/Time Smoking Status/Tobac co Use Comment Facility Dec 21, 2023 11:40 AM VA-TOBACCO QUIT 15 YRS OR MORE [facility] [place] [facility] Oct 31, 2022 11:30 AM VA-TOBACCO FORMER USER [facility] [place] [facility] Oct 31, 2022 11:30 AM VA-TOBACCO QUIT 15 YRS OR MORE [facility] [place] [facility] Sep 17, 2021 03:00 PM VA-TOBACCO FORMER USER [facility] [place] [facility] Sep 17, 2021 03:00 PM VA-TOBACCO QUIT 15 YRS OR MORE [facility] [place] [facility] Aug 15, 2020 10:00 AM VA-TOBACCO FORMER USER [facility] [place] [facility] Aug 15, 2020 10:00 AM VA-TOBACCO QUIT 15 YRS OR MORE [facility] [place] [facility] May 12, 2019 03:07 PM VA-TOBACCO FORMER USER [facility] [place] [facility] May 12, 2019 03:07 PM VA-TOBACCO QUIT 15 YRS OR MORE [facility] [place] [facility] May 31, 2018 01:08 PM VA-TOBACCO FORMER USER [facility] [place] [facility] May 31, 2018 01:08 PM VA-TOBACCO QUIT 15 YRS OR MORE [facility] [place] [facility] Feb 16, 2017 01:33 PM QUIT TOBACCO USE > 7 YEARS AGO quit 16 years ago [facility] [place] [facility] Nov 13, 2015 03:48 PM QUIT TOBACCO USE > 7 YEARS AGO . [facility] May 12, 2013 12:49 PM QUIT TOBACCO USE > 7 YEARS AGO quit 2001 [facility] Advance Directives: All historical and current Section Date Range: From patient's date of to the date document was created. This section includes ALL of a patient's completed or amended [place] Advance and Rescinded Directives. The entries below indicate that a directive exists for the patient, but an actual copy is not included with this document. The data comes from all [place] facilities. Date Advance Directives Provider Source Nov 03, 2022 ADVANCE DIRECTIVE CARLOS [facility]A [facility] Aug 16, 2020 ADVANCE DIRECTIVE LEANDROANNETTAEDMUND Kerry [facility] Radiology Reports: +/- 30 days of [...] the Encounter. The data comes from all [place] treatment facilities. Date/Time Radiology Report Provider Source Mar 29, 2024 10:17 AM ABDOMINAL ULTRASOUND: CHAR TATE [id number] -[id number] M Ex Date: MAR 29, 2024@10:17 Req Phys: KIARA ESPARZA Loc: CWM/NO/SICK CALL [place] (Req'g Loc Img Loc: ULTRASOUND Service: Unknown [facility] [place] [address] (Case 109 COMPLETE) ULTRASOUND ABDOMEN LIMITED (US Detailed) CPT:16963 Reason for Study: Liver Clinical History: There is some prominence of the hepatic shadow with a suggested hepatic granuloma on plain film today. Report Status: Verified Date Reported: MAR 29, 2024 Date Verified: MAR 29, 2024 Data Control Clerk Supervisor E-Sig: Report: ULTRASOUND ABDOMEN LIMITED [PRINTSET] HISTORY: Liver COMPARISON: 03/22/2024 abdomen x-ray TECHNIQUE: Ultrasound of the right upper abdomen was performed at the local [place] facility. 34 images were received by the [place] National Teleradiology Program (NTP) for interpretation. FINDINGS: [...] acute cholecystitis. READING PHYSICIAN: Cintia Campbell M.D. -[id number] 03/29/2024 14:38 EDT [facility] National Teleradiology Program [phone] (For Medical Practitioner Use Only) Attention Patients / Veterans: If you have questions or concerns about these test results, please contact your ordering provider or primary care team. Primary Diagnostic Code: NO ALERT REQUIRED Primary Interpreting Staff: RADIOLOGY,OUTSIDE SERVICE, Staff Physician / RADIOLOGY,OUTSIDE SERVICE [facility] Mar 22, 2024 10:50 AM ABDOMEN (2 VIEWS): CHAR TATE [facility] [id number] -[id number] M Ex Date: MAR 22, 2024@10:50 Req Phys: LILIYA CHOWDHURY Loc: CWM/NO/SICK CALL [place] (Req'g Loc Img Loc: [facility]/BUILDING 1 Service: Unknown [facility] [place] [id number] (Case [id number] COMPLETE) ABDOMEN (2 VIEWS) (RAD Detailed) CPT:58744 Reason for Study: constipation x 10 days Clinical History: Report Status: Verified Date Reported: MAR 22, 2024 Date Verified: MAR 22, 2024 Data Control Clerk Supervisor E-Sig: Report: ABDOMEN (2 VIEWS) Clinical [...] fecal burden. READING PHYSICIAN: Adrien Rod M.D. -[id number] 03/22/2024 11:23 EDT [facility] National Teleradiology Program [phone] (For Medical Practitioner Use Only) Attention Patients / Veterans: If you have questions or concerns about these test results, please contact your ordering provider or primary care team. Primary Diagnostic Code: NO ALERT REQUIRED Primary Interpreting Staff: RADIOLOGY,OUTSIDE SERVICE, Staff Physician / RADIOLOGY,OUTSIDE SERVICE [facility]
--- OUTSIDE RECORDS SUMMARY | 2024-05-16 14:08 | XMS_ITS | Encounter Summary ---
Author Name [facility] [place] [facility] [place] Address [address] [place] [id number] Care Team Providers Care Slide Developer Name Role Phone KIARA ESPARZA Primary [...] Colbert's Name Patient's Relationship to Policy Colbert [facility] (WNR) MEDICARE [facility] (WNR) Jun 01, 2017 [id number] Krishan TATE PATIENT [facility] (WNR) MEDICARE ADVANTAGE [facility] (WNR) Jun 01, 2017 [id number] Krishan TATE PATIENT [facility] (WNR) MEDICARE [facility] (WNR) Jun 01, 2017 [id number] Krishan TATE PATIENT Selected Encounter This section includes the information on record at [place] for the Encounter. Date/Time Encounter Type Encounter Description Reason Provider Source Apr 20, 2024 10:40 AM RPR&REFITG SPECT XCP [facility]HAKIA OPTOMETRY ICD-10-CM Z46.0 Encounter for fit/adjst of spectacles and contact lenses STEPHANIE JOSÉ [facility] Encounter Template Text not used by [place] Assessments - Encounter Diagnoses This section includes the primary and secondary diagnoses documented for the Encounter. Date/Time Primary/Secondary Diagnosis Diagnosis Name Provider Source Apr 20, 2024 11:03 AM PRIMARY Encounter for fit/adjst of spectacles and contact lenses STEPHANIE JOSÉ [place] [facility] [place] [facility] Plan of Treatment: Future Appointments (+ 6 months) and Future Tests (+/- 45 days) The Plan of Treatment section includes future care activities for the patient from all [place] treatmentfacilities. This section includes future appointments and future orders which are active, pending or scheduled. Future Appointments This section includes appointments that were scheduled to occur 6 months from the date of the Encounter, up to a maximum of 20 appointments. The data comes from all [place] treatment facilities. Appointment Date/Time Appointment Type Appointme nt Facility Name May 09, 2024 10:30 AM AMBULATORY - MEDICINE [place] [facility] [place] [facility] May 16, 2024 02:15 PM AMBULATORY - MEDICINE [place] [facility] [place] [facility] Jun 03, 2024 03:00 PM AMBULATORY - MEDICINE [place] [facility] [place] [facility] Jun 16, 2024 02:30 PM AMBULATORY - MEDICINE [place] [facility] [place] [facility] Jun 22, 2024 10:50 AM AMBULATORY - MEDICINE [place] [facility] [place] [facility] Aug 05, 2024 11:00 AM AMBULATORY - MEDICINE [place] [facility] [place] [facility] Aug 19, 2024 11:00 AM AMBULATORY - MEDICINE [place] [facility] [place] [facility] Sep 13, 2024 11:00 AM AMBULATORY - MEDICINE [place] [facility] [place] [facility] Sep 13, 2024 11:30 AM AMBULATORY - MEDICINE [place] [facility] [place] [facility] Active, Pending, and Scheduled Orders This section includes a listing of several types of active, pending, and scheduled orders, including clinic medications orders, diagnostic test orders, procedure orders and consult orders; where the start date of the order is 45 days before the date of the Encounter or 45 days after the date of theEncounter. The data comes from all [place] treatment facilities. Test Date/Time Test Type Test Details Facility Name Mar 31, 2024 08:02 AM Consult [facility] Cons Profile Shaper Operator's Choice [facility] May 09, 2024 11:19 AM Consult [facility] Cons Profile Shaper Operator's Choice [facility] Lab Results: +/- 30 days of the encounter This section includes the Chemistry and Hematology Lab Results on record with [place] for the patient. Radiology Reports and Pathology [...] AM Reporting Lab: [facility] [address] [facility] [address] Performing Lab: [address] [address] HEMOGLOBIN A1C 5.6 4.0-5.6 May 02, 2024 09:24 AM [facility] LIPID PANEL FASTING Specimen Type: SERUM Comment: Hemolysis present analysis cannot be performed. Hemolysis present may falsly elevate Potassium Total and Direct Bili, Iron, AST, %Fe. Ordering Provider: SOLOMON ESPARZA F Report Released Date/Time: Apr 27, 2024 11:20 AM Reporting Lab: [facility] [address] [facility] [address] Performing Lab: [facility] [address] [facility] [address] CHOLESTEROL 85 mg/dL TRIGLYCERIDE 130 mg/dL 0-150 [...] AM Reporting Lab: [facility] [address] [facility] [address] Performing Lab: [address] [address] PROTEIN,TOTAL 6.2 g/dL 6.0-8.3 ALBUMIN 3.8 g/dL [...] AM Reporting Lab: [facility] [address] [facility] [address] Performing Lab: [address] [address] UREA NITROGEN 24 mg/dL 7-25 GLUCOSE 93 [...] and tobacco- related health factors from the [place] facility where the Encounter took place. Current Smoking Status This section includes the most current smoking, or tobacco-related health factor, from the [place] facility where the Encounter took place. Date/Time Current Smoking Status Comment Facil it Dec 21, 2023 11:40 AM VA-TOBACCO QUIT 15 YRS OR MORE [place] [facility] [place] [facility] Tobacco Use History This section includes a history of the smoking, or tobacco-related health factors, that were collected on or before the date of the Encounter. The data comes from the [place] facility where the Encounter took place. Date/Time Smoking Status/Tobac co Use Comment [facility] Dec 21, 2023 11:40 AM VA-TOBACCO QUIT 15 YRS OR MORE [facility] [place] [facility] Oct 31, 2022 11:30 AM VA-TOBACCO FORMER USER [facility] [place] [facility] Oct 31, 2022 11:30 AM VA-TOBACCO QUIT 15 YRS OR MORE [facility] [place] [facility] Sep 17, 2021 03:00 PM VA-TOBACCO FORMER USER [facility] [place] [facility] Sep 17, 2021 03:00 PM VA-TOBACCO QUIT 15 YRS OR MORE [facility] [place] [facility] Aug 15, 2020 10:00 AM VA-TOBACCO FORMER USER [facility] [place] [facility] Aug 15, 2020 10:00 AM VA-TOBACCO QUIT 15 YRS OR MORE [facility] [place] [facility] May 12, 2019 03:07 PM VA-TOBACCO FORMER USER [facility] [place] [facility] May 12, 2019 03:07 PM VA-TOBACCO QUIT 15 YRS OR MORE [facility] [place] [facility] May 31, 2018 01:08 PM VA-TOBACCO FORMER USER [facility] [place] [facility] May 31, 2018 01:08 PM VA-TOBACCO QUIT 15 YRS OR MORE [facility] [place] [facility] Feb 16, 2017 01:33 PM QUIT TOBACCO USE > 7 YEARS AGO [facility] Nov 13, 2015 03:48 PM QUIT TOBACCO USE > 7 YEARS AGO . [facility] May 12, 2013 12:49 PM QUIT TOBACCO USE > 7 YEARS AGO quit 2001 [facility] Advance Directives: All historical and current Section Date Range: From patient's date of to the date document was created. This section includes ALL of a patient's completed or amended [place] Advance and Rescinded Directives. The entries below indicate that a directive exists for the patient, but an actual copy is not included with this document. The data comes from all [place] facilities. Date Advance Directives Provider Source Nov 03, 2022 ADVANCE DIRECTIVE [facility] Aug 16, 2020 ADVANCE DIRECTIVE EDMUND MORGAN [facility] Radiology Reports: +/- 30 days of [...] the Encounter. The data comes from all [place] treatment facilities. Date/Time Radiology Report Provider Source Mar 29, 2024 10:17 AM ABDOMINAL ULTRASOUND: CHAR TATE [id number] -[id number] Ex Date: MAR 29, 2024@10:17 Req Phys: KIARA ESPARZA Loc: CWM/NO/SICK CALL [place] (Req'g Loc Img Loc: ULTRASOUND Service: Unknown [facility] [place] [address] (Case 109 COMPLETE) ULTRASOUND ABDOMEN LIMITED (US Detailed) CPT:72655 Reason for Study: Liver Clinical History: There is some prominence of the hepatic shadow with a suggested hepatic granuloma on plain film today. Report Status: Verified Date Reported: MAR 29, 2024 Date Verified: MAR 29, 2024 Microsoft Application Developer E-Sig: Report: ULTRASOUND ABDOMEN LIMITED [PRINTSET] HISTORY: Liver COMPARISON: 03/22/2024 abdomen x-ray TECHNIQUE: Ultrasound of the right upper abdomen was performed at the local [place] facility. 34 images were received by the [place] National Teleradiology Program (NTP) for interpretation. FINDINGS: [...] acute cholecystitis. READING PHYSICIAN: Cintia Campbell M.D. -[phone] 03/29/2024 14:38 EDT [facility] National Teleradiology Program [phone] (For Medical Practitioner Use Only) Attention Patients / Veterans: If you have questions or concerns about these test results, please contact your ordering provider or primary care team. Primary Diagnostic Code: NO ALERT REQUIRED Primary Interpreting Staff: RADIOLOGY,OUTSIDE SERVICE, Staff Physician / RADIOLOGY,OUTSIDE SERVICE [place] [facility] [place] [facility] Mar 22, 2024 10:50 AM ABDOMEN (2 VIEWS): CHAR TATE [id number] -[id number] M Ex Date: MAR 22, 2024@10:50 Req Phys: LILIYA CHOWDHURY Pat Loc: CWM/NO/SICK CALL [place] (Req'g Loc Img Loc: [place]ING 1 Service: Unknown [facility] [place] [address] (Case 98 COMPLETE) ABDOMEN (2 VIEWS) (RAD Detailed) CPT:60885 Reason for Study: constipation x 10 days Clinical History: Report Status: Verified Date Reported: MAR 22, 2024 Date Verified: MAR 22, 2024 Microsoft Application Developer E-Sig: Report: ABDOMEN (2 VIEWS) Clinical History: [...] fecal burden. READING PHYSICIAN: Adrien Rod M.D. -[id number] 03/22/2024 11:23 EDT [facility] National Teleradiology Program [phone] (For Medical Practitioner Use Only) Attention Patients / Veterans: If you have questions or concerns about these test results, please contact your ordering provider or primary care team. Primary Diagnostic Code: NO ALERT REQUIRED Primary Interpreting Staff: RADIOLOGY,OUTSIDE SERVICE, Staff Physician / RADIOLOGY,OUTSIDE SERVICE [facility] Encounter Notes: All associated encounter notes This section contains the clinical notes associated to the Encounter. Date/Time Encounter Note(s) Provider Source Apr 20, 2024 11:02 AM OPTOMETRY NOTE: LOCAL TITLE: OPTOMETRY NOTE STANDARD TITLE: OPTOMETRY NOTE DATE OF NOTE: APR 20, 2024@11:02 ENTRY DATE: APR 20, 2024@11:02:44 AUTHOR: STEPHANIE JOSÉ EXP COSIGNER: URGENCY: STATUS: COMPLETED PDS product engineering manager Repaired one pair today. Replaced missings screw and adjusted. Clear pair. Note that and like the Big Twist size 60 for next pair. /elizabeth/ STEPHANIE JOSÉ OPTOMETRY TECH Signed: 04/20/2024 11:03 STEPHANIE JOSÉ [facility]
--- OUTSIDE RECORDS SUMMARY | 2024-05-16 14:09 | XMS_ITS | Encounter Summary ---
Author Name [facility] [place] [facility] [place] Address [address] [place] [address] Care Team Providers Care Cover Making Machine Operator Name Role Phone KIARA ESPARZA Primary [...] Colbert's Name Patient's Relationship to Policy Colbert [facility] (WNR) MEDICARE ADVANTAGE [facility] (WNR) Jun 01, 2017 [id number] Krishan TATE PATIENT [facility] (WNR) MEDICARE ADVANTAGE [facility] (WNR) Jun 01, 2017 [id number] [phone] Krishan TATE PATIENT [facility] (WNR) MEDICARE ADVANTAGE [facility] (WNR) Jun 01, 2017 [id number] Krishan TATE PATIENT Selected Encounter This section includes the information on record at [place] for the Encounter. Date/Time Encounter Type Encounter Description Reason Pro vider Source Feb 25, 2024 12:00 AM Outpatient Encounter EVENT (HISTORICAL) IHE Encounter Template Text not used by [place] Plan of Treatment: Future Appointments (+ 6 months) and Future Tests (+/- 45 days) The Plan of Treatment section includes future care activities for the patient from all [place] treatmentfacilities. This section includes future appointments and future orders which are active, pending or scheduled. Future Appointments This section includes appointments that were scheduled to occur 6 months from the date of the Encounter, up to a maximum of 20 appointments. The data comes from all [place] treatment facilities. Appointment Date/Time Appointment Type Appointme nt Facility Name Mar 22, 2024 10:30 AM AMBULATORY [facility] MEDICINE [facility] [place] [facility] Mar 22, 2024 10:31 AM AMBULATORY [facility] MEDICINE [facility] [place] [facility] Mar 24, 2024 02:30 PM AMBULATORY - MEDICINE [facility] [place] [facility] Mar 29, 2024 10:30 AM AMBULATORY - NONE [facility] [place] [facility] Apr 07, 2024 08:00 AM AMBULATORY - MEDICINE [facility] [place] [facility] Apr 20, 2024 10:40 AM AMBULATORY - MEDICINE [facility] [place] [facility] May 09, 2024 10:30 AM AMBULATORY - MEDICINE [facility] [place] [facility] May 16, 2024 02:15 PM AMBULATORY - MEDICINE [facility] [place] [facility] Jun 03, 2024 03:00 PM AMBULATORY - MEDICINE [facility] [place] [facility] Jun 16, 2024 02:30 PM AMBULATORY - MEDICINE [facility] [place] [facility] Jun 22, 2024 10:50 AM AMBULATORY - MEDICINE [facility] [place] [facility] Aug 05, 2024 11:00 AM AMBULATORY - MEDICINE [facility] [place] [facility] Aug 19, 2024 11:00 AM AMBULATORY - MEDICINE [facility] [place] [facility] Active, Pending, and Scheduled Orders This section includes a listing of several types of active, pending, and scheduled orders, including clinic medications orders, diagnostic test orders, procedure orders and consult orders; where the start date of the order is 45 days before the date of the Encounter or 45 days after the date of theEncounter. The data comes from all [place] treatment facilities. Test Date/Time Test Type Test Details Facility Name Mar 31, 2024 08:02 AM Consult Order COMMUNITY CARE-NEUROLOGY Cons Bisque Finisher's Choice [facility] Immunizations: All administered on the encounter date This section contains immunizations associated to the Encounter. Immunization Series Date Issued Reaction Comments COVID-19 (MODERNA), MRNA, LNP-S, PF, 50 MCG/0.5 ML (AGES 12+ YEARS) 6 Feb 25, 2024 [facility] INFLUENZA, UNSPECIFIED FORMULATION Feb 25, 2024 [facility] Social History: Smoking Status (Most current) and Tobacco Use (All prior to encounter date) This section includes the most current, and the historical, smoking and tobacco- related health factors from the [place] facility where the Encounter took place. Current Smoking Status This section includes the most current smoking, or tobacco-related health factor, from the [place] facility where the Encounter took place. Date/Time Current Smoking Status Comment [facility] Dec 21, 2023 11:40 AM [place]-TOBACCO QUIT 15 YRS OR MORE [facility] Tobacco Use History This section includes a history of the smoking, or tobacco-related health factors, that were collected on or before the date of the Encounter. The data comes from the [place] facility where the Encounter took place. Date/Time Smoking Status/Tobac co Use Comment [facility] Dec 21, 2023 11:40 AM [place]-TOBACCO QUIT 15 YRS OR MORE [place] [facility] [place] [facility] Oct 31, 2022 11:30 AM VA-TOBACCO FORMER USER [place] [facility] [place] [facility] Oct 31, 2022 11:30 AM VA-TOBACCO QUIT 15 YRS OR MORE [place] [facility] [place] [facility] Sep 17, 2021 03:00 PM VA-TOBACCO FORMER USER [place] [facility] [place] [facility] Sep 17, 2021 03:00 PM VA-TOBACCO QUIT 15 YRS OR MORE [place] [facility] [place] [facility] Aug 15, 2020 10:00 AM VA-TOBACCO [facility] USER [place] [facility] Aug 15, 2020 10:00 AM VA-TOBACCO QUIT 15 YRS OR MORE [place] [facility] May 12, 2019 03:07 PM VA-TOBACCO FORMER USER [place] [facility] [place] [facility] May 12, 2019 03:07 PM VA-TOBACCO QUIT 15 YRS OR [facility] May 31, 2018 01:08 PM VA-TOBACCO FOR[place] USER [place] [facility] May 31, 2018 01:08 PM VA-TOBACCO QUIT 15 YRS OR MORE [place] [facility] Feb 16, 2017 01:33 PM QUIT TOBACCO USE > 7 YEARS AGO quit 16 years ago [facility] Nov 13, 2015 03:48 PM QUIT TOBACCO USE > 7 YEARS AGO . [facility] May 12, 2013 12:49 PM QUIT TOBACCO USE > 7 YEARS AGO quit 2001 [facility] Advance Directives: All historical and current Section Date Range: From patient's date of to the date document was created. This section includes ALL of a patient's completed or amended [place] Advance and Rescinded Directives. The entries below indicate that a directive exists for the patient, but an actual copy is not included with this document. The data comes from all [place] facilities. Date Advance Directives Provider Source Nov 03, 2022 ADVANCE DIRECTIVE [facility] Aug 16, 2020 ADVANCE DIRECTIVE EDMUND MORGAN [facility] Radiology Reports: +/- 30 days of [...] the Encounter. The data comes from all [place] treatment facilities. Date/Time Radiology Report Provider Source Mar 22, 2024 10:50 AM ABDOMEN (2 VIEWS): CHAR TATE [id number] -[id number] M Exm Date: MAR 22, 2024@10:50 Req Phys: LILIYA CHOWDHURY Pat Loc: CWM/NO/SICK CALL PA (Req'g Loc Img Loc: [facility]BUILD[facility] 1 Service: [place] [address] (Case [id number] COMPLETE) ABDOMEN (2 VIEWS) (RAD Detailed) CPT:77531 Reason for Study: constipation x 10 days Clinical History: Report Status: Verified Date Reported: MAR 22, 2024 Date Verified: MAR 22, 2024 Search Engine Optimization Manager E-Sig: Report: ABDOMEN (2 VIEWS) Clinical [...] fecal burden. READING PHYSICIAN: Adrien Rod M.D. -[id number] 03/22/2024 11:23 EDT [facility] National Teleradiology Program [phone] (For Medical Practitioner Use Only) Attention Patients / Veterans: If you have questions or concerns about these test results, please contact your ordering provider or primary care team. Primary Diagnostic Code: NO ALERT REQUIRED Primary Interpreting Staff: RADIOLOGY,OUTSIDE SERVICE, Staff Physician / RADIOLOGY,OUTSIDE SERVICE [facility]
--- OUTSIDE RECORDS SUMMARY | 2024-05-16 14:09 | XMS_ITS ---
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 Name Role Phone LUIS F CASH Primary [...] Name Patient's Relationship to Policy Colbert [facility] (WNR) MEDICARE ADVANTAGE [facility] (WNR) Jun 01, 2017 [id number] [phone] Krishan TATE PATIENT [facility] (WNR) MEDICARE ADVANTAGE [facility] (WNR) Jun 01, 2017 [id number] Krishan TATE PATIENT [facility] (WNR) MEDICARE ADVANTAGE [facility] (WNR) Jun 01, 2017 [id number] Krishan TATE PATIENT Selected Encounter This section includes the information on record at [place] for the Encounter. 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 Date/Time Primary/Secondary Diagnosis Diagnosis Name Provider Source May 09, 2024 11:19 AM PRIMARY Hypertensive heart disease without heart failure STEVE CASH [place] [facility] [place] [facility] Plan of Treatment: Future Appointments (+ 6 [...] Appointment Type Appointme nt Facility Name May 16, 2024 02:15 PM AMBULATORY - MEDICINE [place] [facility] [place] [facility] Jun 03, 2024 03:00 PM AMBULATORY - MEDICINE [place] [facility] [place] [facility] Jun 16, 2024 02:30 PM AMBULATORY - MEDICINE [place] [facility] [place] [facility] Jun 22, 2024 10:50 AM AMBULATORY - MEDICINE [place] [facility] [place] [facility] Aug 05, 2024 11:00 AM AMBULATORY - MEDICINE [place] [facility] [place] [facility] Aug 19, 2024 11:00 AM AMBULATORY - MEDICINE [place] [facility] [place] [facility] Sep 13, 2024 11:00 AM AMBULATORY - MEDICINE [place] [facility] [place] [facility] Sep 13, 2024 11:30 AM AMBULATORY - MEDICINE [place] [facility] [place] [facility] Active, Pending, and Scheduled Orders This section [...] 08:02 AM Consult Order COMMUNITY CARE-NEUROLOGY Cons Softball Winder's Choice [facility] May 09, 2024 11:19 AM Consult Order [facility]ITY [facility]-CARDIOLOGY Cons Softball Winder's Choice [facility] Lab Results: +/- 30 days [...] Range Comment May 02, 2024 09:24 AM [facility] HEMOGLOBIN A1C PANEL Specimen Type: [...] 27, 2024 11:20 AM Reporting Lab: [address] [address] Performing Lab: [address] [address] HEMOGLOBIN A1C 5.6 4.0-5.6 May 02, 2024 09:24 AM [facility] LIPID PANEL FASTING Specimen Type: SERUM Comment: Hemolysis present analysis cannot be performed. Hemolysis present may falsly elevate Potassium Total and Direct Bili, Iron, AST, %Fe. Ordering Provider: SOLOMON CAHS Report Released Date/Time: Apr 27, 2024 11:20 AM Reporting Lab: [address] [address] Performing Lab: [address] [address] CHOLESTEROL 85 mg/dL TRIGLYCERIDE 130 mg/dL 0-150 LDL calculated 29 mg/dL 0-129 CHOL/HDL 2.8 HDL CHOLESTEROL 30 mg/dL L 40-60 May 02, 2024 09:24 AM [facility] LIVER FUNCTION Specimen Type: SERUM Comment: Hemolysis present analysis cannot be performed. Hemolysis present may falsly elevate Potassium Total and Direct Bili, Iron, AST, %Fe. Ordering Provider: SOLOMON CASH F Report Released Date/Time: Apr 27, 2024 11:20 AM Reporting Lab: [address] [address] Performing Lab: [address] [address] PROTEIN,TOTAL 6.2 g/dL 6.0-8.3 ALBUMIN 3.8 g/dL 3.5-5.0 ALKALINE PHOSPHATASE 35 U/L L 40-150 AST 22 U/L 5-34 ALT 12 U/L BILIRUBIN, TOTAL comment mg/dL 0.2-1.2 May 02, 2024 09:24 AM [facility] BASIC METABOLIC PANEL (fasting) Specimen Type: SERUM Comment: Hemolysis present analysis cannot be performed. Hemolysis present may falsly elevate Potassium Total and Direct Bili, Iron, AST, %Fe. Ordering Provider: SOLOMON CASH F Report Released Date/Time: Apr 27, 2024 11:20 AM Reporting Lab: [address] [address] Performing Lab: [address] [address] UREA NITROGEN 24 mg/dL 7-25 GLUCOSE 93 [...] Pain Height Weight Body Mass Index Source May 09, 2024 10:20 AM 56 128/62 16 98 5 66 204.9 33 [place] [facility] [place] [facility] Social History: Smoking Status (Most current) [...] took place. Date/Time Current Smoking Status Comment [facility] Dec 21, 2023 11:40 AM VA-TOBACCO QUIT 15 YRS OR MORE [place] [facility] Tobacco Use History This section includes a history of the smoking, or tobacco-related health factors, that were collected on or before the date of the Encounter. The data comes from the [place] facility where the Encounter took place. Date/Time Smoking Status/Tobac co Use Comment Facility Dec 21, 2023 11:40 AM VA-TOBACCO QUIT 15 YRS OR MORE [facility] [place] [facility] Oct 31, 2022 11:30 AM VA-TOBACCO FORMER USER [facility] [place] [facility] Oct 31, 2022 11:30 AM VA-TOBACCO QUIT 15 YRS OR MORE [facility] [place] [facility] Sep 17, 2021 03:00 PM VA-TOBACCO FORMER USER [facility] [facility] Sep 17, 2021 03:00 PM VA-TOBACCO QUIT 15 YRS OR MORE [facility] [place] [facility] Aug 15, 2020 10:00 AM VA-TOBACCO FORMER USER [facility] [place] [facility] Aug 15, 2020 10:00 AM VA-TOBACCO QUIT 15 YRS OR MORE [facility] [place] [facility] May 12, 2019 03:07 PM VA-TOBACCO FORMER USER [facility] [place] [facility] May 12, 2019 03:07 PM VA-TOBACCO QUIT 15 YRS OR MORE [facility] [place] [facility] May 31, 2018 01:08 PM VA-TOBACCO FORMER USER [facility] [place] [facility] May 31, 2018 01:08 PM VA-TOBACCO QUIT 15 YRS OR MORE [facility] Feb 16, 2017 01:33 PM QUIT TOBACCO USE > 7 YEARS AGO quit 16 years ago [facility] Nov 13, 2015 03:48 PM QUIT TOBACCO USE > 7 YEARS AGO . [facility] May 12, 2013 12:49 PM QUIT TOBACCO USE > 7 YEARS AGO quit 2001 [facility] Advance Directives: All historical and [...] 03, 2022 ADVANCE DIRECTIVE LENORA CARCAMO [facility] Aug 16, 2020 ADVANCE DIRECTIVE EDMUND MORGAN [facility] Encounter Notes: All associated encounter notes This section contains the clinical notes associated to the Encounter. Date/Time Encounter Note(s) Provider Source May 09, 2024 11:15 AM PHYSICIAN AUTOMATIC LUMP MAKING MACHINE TENDER NOTE: LOCAL TITLE: PA NOTE STANDARD TITLE: PHYSICIAN AUTOMATIC LUMP MAKING MACHINE TENDER NOTE DATE OF NOTE: MAY 09, 2024@11:15 ENTRY DATE: MAY 09, 2024@11:15:11 AUTHOR: LUIS F CASH COSIGNER: URGENCY: STATUS: COMPLETED CC/HPI/A/P: 88 year old MALE here in follow-up for; cad, they report several months of increasing fatigue. He used to be able to walk a mile with one short rest. Now 1/4 mile is all he can walk. he reports chest tightness sometimes after sitting, not with exertion. Fatigue after washing dishes, no cp. I re enter [facility] consult and ask him to call them for an apt and discuss stress testing. He last saw them a year ago and is likely already booked for June. Constipation, stoppped iron, used some lactulose,then segued to Miralax as [place] had planned, not sat [facility] current BMs 'like pencils' but admits that he was like clockwork 'for 86 years' We discuss and renew miralax. Review of systems: Patient reports no changes from [facility], in meds or any admissions. Active problems - Computerized Problem List is the source for the followin. Hematuria (SCT 57193482) 2. Inflamed Seborrheic Keratosis (SCT 39922108) 3. Glaucoma 4. Chronic gastric ulcer 5. Obesity 6. Primary generalized osteoarthritis 7. Obstructive sleep apnea syndrome 8. Coronary arteriosclerosis 9. Benign essential hypertension (SNOMED CT 5679712) 10. 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 BPH W/O URINARY OBSTRUCT SERVICE CONNECTED % - NONE FOUND VA and Non VA meds were reconciled with the patient who left with a corrected copy. See medication page for details. Active and Recently Outpatient Medications (excluding Supplies): Active Outpatient Medications Status 1) AMMONIUM LACTATE 12% LOTION APPLY MODERATE AMOUNT TOPICALLY ACTIVE ONCE DAILY FOR DRY IRRITATED SKIN Indication: FOR DRY SKIN 2) CAPSAICIN 0.025% CREAM APPLY A THIN LAYER TOPICALLY TWICE ACTIVE DAILY NEEDED FOR KNEES Indication: FOR LOCALIZED PAIN 3) CARBOXYMETHYLCELLULOSE NA 0.5% OPH SOLN INSTILL 1 DROP INTO ACTIVE EACH EYE FOUR TIMES DAILY NEEDED FOR DRYNESS Indication: FOR DRY EYE 4) EYELID CLEANSER,EYE SCRUB PAD USE 1 PAD TOPICALLY ONCE DAILY ACTIVE Indication: BLEPHARITIS 5) FERROUS SULFATE 325MG TAB TAKE ONE TABLET BY MOUTH ONCE ACTIVE DAILY TO SUPPLEMENT IRON 6) HYLAN G-F20 48MG/6ML INJ SYRINGE 6ML INJECT 48MG/6ML ACTIVE INTRA-ARTICULAR NEEDED DIRECTED BY PROVIDER Indication: FOR OSTEOARTHRITIS OF THE KNEE 7) HYPROMELLOSE 0.3% OPH GEL APPLY 1 TO 2 DROPS INTO EACH EYE ACTIVE AT BEDTIME Indication: FOR DRY EYE 8) LACTULOSE 10GM/15ML ORAL SOLN TAKE 30 ML (2 TABLESPOONS) BY ACTIVE MOUTH TWICE DAILY NEEDED Indication: FOR CONSTIPATION 9) LATANOPROST 0.005% OPH SOLN INSTILL 1 DROP INTO EACH EYE AT ACTIVE BEDTIME Indication: FOR INCREASED PRESSURE IN THE EYE 10) LIDOCAINE 5% PATCH APPLY 1 PATCH TOPICALLY ONCE DAILY (LEAVE ACTIVE PATCH ON FOR 12 HOURS THEN LEAVE OFF FOR 12 HOURS) Indication: FOR NERVE PAIN 11) LISINOPRIL 10MG TAB TAKE ONE TABLET BY MOUTH ONCE DAILY TO ACTIVE CONTROL BLOOD PRESSURE 12) METOPROLOL TARTRATE 50MG TAB TAKE ONE TABLET BY MOUTH TWICE ACTIVE DAILY FOR BLOOD PRESSURE/HEART 13) OMEPRAZOLE 20MG EC CAP TAKE ONE CAPSULE BY MOUTH EVERY ACTIVE MORNING 30 MINUTES BEFORE BREAKFAST 14) ROSUVASTATIN CA 40MG TAB TAKE ONE TABLET BY MOUTH ONCE DAILY ACTIVE FOR CHOLESTEROL Indication: FOR HIGH CHOLESTEROL 15) TAMSULOSIN HCL 0.4MG CAP TAKE ONE CAPSULE BY MOUTH ONCE ACTIVE DAILY Indication: FOR ENLARGED PROSTATE Inactive Outpatient Medications Status 1) POLYETHYLENE GLYCOL 3350 ORAL PWDR TAKE 17 GRAMS(FILL CAP TO 17GM LINE) BY MOUTH ONCE DAILY [MIX WITH 4 TO 8OZ. OF BEVERAGE] Indication: FOR CONSTIPATION Active Non-VA Medications Status 1) Non-VA ACETAMINOPHEN TAB 1300 BY MOUTH EVERY MORNING AND ACTIVE 650MG BY MOUTH EVERY EVENING 2) Non-VA ASPIRIN 81MG EC TAB 81MG BY MOUTH DAILY ACTIVE 3) Non-VA MULTIVITAMIN/MINERALS CAP/TAB 1 TABLET BY MOUTH EVERY ACTIVE MORNING 19 Total Medications 97.6 F [36.4 C] (03/22/2024 10:28) 56 (05/09/2024 10:20) 16 (05/09/2024 10:20) 128/62 (05/09/2024 10:20) 5 (05/09/2024 10:20) 66 in [167.6 cm] (05/09/2024 10:20) 204.9 lb [92.94 kg] (05/09/2024 10:20) BMI: 33.1 Neuro: Alert and oriented times three, grossly nonfocal, nasolabial folds intact. Recent labs reviewed with patient today:yes /elizabeth/ Luis F Cash PA-C STAFF PHYSICIAN AUTOMATIC LUMP MAKING MACHINE TENDER Signed: 05/09/2024 11:19 [facility] F [facility]ASH [facility] May 09, 2024 10:29 AM PREVENTIVE MEDICINE NURSING NOTE: LOCAL TITLE: CLINICAL REMINDERS/NURSING STANDARD TITLE: PREVENTIVE MEDICINE NURSING NOTE DATE OF NOTE: MAY 09, 2024@10:29 ENTRY DATE: MAY 09, 2024@10:29:17 AUTHOR: REID CEDILLO EXP COSIGNER: URGENCY: STATUS: COMPLETED (Optional) Whole Health Documentation: What matters the most to you? What motivates you to be healthy? (MAP) Response: day to day living, quality of life Influenza Immunization: The patient has received the seasonal influenza vaccine for the current season at another location. Documented: INFLUENZA, UNSPECIFIED FORMULATION Historical Date Administered: Feb 25, 2024 Series: Complete Outside Location: Outside Healthcare Provider Information Source: FROM OTHER REGISTRY Comment: [facility] COVID-19 Immunization: Patient received a prior dose of the Moderna Monovalent vaccine. Documented: COVID-19 (MODERNA), MRNA, LNP-S, PF, 50 MCG/0.5 ML (AGES 12+ YEARS) Historical Date Administered: Feb 25, 2024 Series: Series 6 Outside Location: Outside Healthcare Provider Information Source: FROM OTHER REGISTRY Comment: [facility] /elizabeth/ REID CEDILLO LPN LPN Signed: 05/09/2024 10:35 REID CEDILLO [facility]
--- OUTSIDE RECORDS SUMMARY | 2024-05-16 14:09 | XMS_ITS | Encounter Summary ---
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 Name Role Phone KIARA CASH Primary Care [...] Name Patient's Relationship to Policy Colbert KYLIE [facility] (WNR) MEDICARE ADVANTAGE [facility] (WNR) Jun 01, 2017 [id number] Krishan TATE PATIENT [facility] (WNR) MEDICARE ADVANTAGE [facility] (WNR) Jun 01, 2017 [id number] Krishan TATE PATIENT [facility] (WNR) MEDICARE ADVANTAGE [facility] (WNR) Jun 01, 2017 [id number] Krishan TATE PATIENT Selected Encounter This section includes the information on record at [place] for the Encounter. Date/Time Encounter Type Encounter Description Reason Provider Source May 09, 2024 10:30 AM PRO PHONE CALL 11-20 MIN TELEPHONE/MEDICINE ICD-10-CM I25.10 Athscl heart disease of [place] coronary artery w/o KATHIE Mireles E Encounter Template Text not used by [place] Assessments - Encounter Diagnoses This section includes the primary and secondary diagnoses documented for the Encounter. 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 [facility]IE [facility] [place] [facility] Plan of Treatment: Future Appointments (+ [...] 16, 2024 02:15 PM AMBULATORY - MEDICINE [place] [facility] [place] [facility] Jun 03, 2024 03:00 PM AMBULATORY - MEDICINE [place] [facility] [facility] Jun 16, 2024 02:30 PM AMBULATORY - MEDICINE [place] [facility] [facility] Jun 22, 2024 10:50 AM AMBULATORY - MEDICINE [place] [facility] [facility] Aug 05, 2024 11:00 AM AMBULATORY - MEDICINE [place] [facility] [facility] Aug 19, 2024 11:00 AM AMBULATORY - MEDICINE [place] [facility] [facility] Sep 13, 2024 11:00 AM AMBULATORY - MEDICINE [place] [facility] [facility] Sep 13, 2024 11:30 AM AMBULATORY - MEDICINE [place] [facility] [facility] Active, Pending, and Scheduled Orders This section includes a listing of several types of active, pending, and scheduled orders, including clinic medications orders, diagnostic test orders, procedure orders and consult orders; where the start date of the order is 45 days before the date of the Encounter or 45 days after the date of theEncounter. The data comes from all [place] treatment facilities. Test Date/Time Test Type Test Details Facility Name Mar 31, 2024 08:02 AM [facility] Ethnic Origins Teacher's Choice [facility] May 09, 2024 11:19 AM Consult Order [facility] Ethnic Orig[employer] Teacher's Choice [facility] Lab Results: +/- 30 days of [...] Comment May 02, 2024 09:24 AM [facility] HEMOGLOBIN A1C PANEL Specimen Type: BLOOD [...] Apr 27, 2024 11:20 AM Reporting Lab: [address] [address] Performing Lab: [address] [address] HEMOGLOBIN A1C 5.6 4.0-5.6 May 02, 2024 09:24 AM [facility] LIPID PANEL FASTING Specimen Type: SERUM Comment: Hemolysis present analysis cannot be performed. Hemolysis present may falsly elevate Potassium Total and Direct Bili, Iron, AST, %Fe. Ordering Provider: SOLOMON CASH Report Released Date/Time: Apr 27, 2024 11:20 AM Reporting Lab: [address] [place] [address] Performing Lab: [address] [address] CHOLESTEROL 85 mg/dL TRIGLYCERIDE 130 mg/dL 0-150 LDL calculated 29 mg/dL 0-129 CHOL/HDL 2.8 HDL CHOLESTEROL 30 mg/dL L 40-60 May 02, 2024 09:24 AM [facility] LIVER FUNCTION Specimen Type: SERUM Comment: Hemolysis present analysis cannot be performed. Hemolysis present may falsly elevate Potassium Total and Direct Bili, Iron, AST, %Fe. Ordering Provider: SOLOMON CASH F Report Released Date/Time: Apr 27, 2024 11:20 AM Reporting Lab: [address] [address] Performing Lab: [address] [address] PROTEIN,TOTAL 6.2 g/dL 6.0-8.3 ALBUMIN 3.8 g/dL 3.5-5.0 ALKALINE PHOSPHATASE 35 U/L L 40-150 AST 22 U/L 5-34 ALT 12 U/L BILIRUBIN, TOTAL comment mg/dL 0.2-1.2 May 02, 2024 09:24 AM [facility] BASIC METABOLIC PANEL (fasting) Specimen Type: SERUM Comment: Hemolysis present analysis cannot be performed. Hemolysis present may falsly elevate Potassium Total and Direct Bili, Iron, AST, %Fe. Ordering Provider: SOLOMON CASH F Report Released Date/Time: Apr 27, 2024 11:20 AM Reporting Lab: [address] [address] Performing Lab: [address] [address] UREA NITROGEN 24 mg/dL 7-25 GLUCOSE 93 [...] 128/62 16 98 5 66 204.9 33 [place] [facility] [place] [facility] Social History: Smoking Status (Most [...] took place. Date/Time Current Smoking Status Comment [facility] Dec 21, 2023 11:40 AM VA-TOBACCO QUIT 15 YRS OR MORE [place] [facility] [facility] Tobacco Use History This section includes a history of the smoking, or tobacco-related health factors, that were collected on or before the date of the Encounter. The data comes from the [place] facility where the Encounter took place. Date/Time Smoking Status/Tobac co Use Comment Facility Dec 21, 2023 11:40 AM VA-TOBACCO QUIT 15 YRS OR MORE [facility] [place] [facility] Oct 31, 2022 11:30 AM VA-TOBACCO FORMER USER [facility] [place] [facility] Oct 31, 2022 11:30 AM VA-TOBACCO QUIT 15 YRS OR MORE [facility] [place] [facility] Sep 17, 2021 03:00 PM VA-TOBACCO FORMER USER [facility] [place] [facility] Sep 17, 2021 03:00 PM VA-TOBACCO QUIT 15 YRS OR MORE [facility] [place] [facility] Aug 15, 2020 10:00 AM VA-TOBACCO FORMER USER [facility] [place] [facility] Aug 15, 2020 10:00 AM VA-TOBACCO QUIT 15 YRS OR MORE [facility] [place] [place] [facility] May 12, 2019 03:07 PM VA-TOBACCO FORMER USER [facility] [place] [facility] May 12, 2019 03:07 PM VA-TOBACCO QUIT 15 YRS OR MORE [facility] [place] [facility] May 31, 2018 01:08 PM VA-TOBACCO FORMER USER [facility] May 31, 2018 01:08 PM VA-TOBACCO QUIT 15 YRS OR MORE [facility] Feb 16, 2017 01:33 PM QUIT TOBACCO USE > 7 YEARS AGO quit 16 years ago [facility] Nov 13, 2015 03:48 PM QUIT TOBACCO USE > 7 YEARS AGO . [facility] May 12, 2013 12:49 PM QUIT TOBACCO USE > 7 YEARS AGO quit 2001 [facility] Advance Directives: All historical and [...] Nov 03, 2022 ADVANCE DIRECTIVE LENORA CARCAMO [facility] Aug 16, 2020 ADVANCE DIRECTIVE EDMUND MORGAN [facility] Encounter Notes: All associated encounter notes This section contains the clinical notes associated to the Encounter. Date/Time Encounter Note(s) Provider Source May 09, 2024 12:41 PM NURSING TELEPHONE ENCOUNTER NOTE: LOCAL TITLE: TELEPHONE NOTE/REFERRAL COORDINATION INITIATIVE [facility] STANDARD TITLE: NURSING TELEPHONE ENCOUNTER NOTE DATE OF NOTE: MAY 09, 2024@12:41 ENTRY DATE: MAY 09, 2024@12:41:13 AUTHOR: KATHIE MERCADO COSIGNER: URGENCY: STATUS: COMPLETED [facility] Care Coordination 05.09.2024 Telephone triage [place] communicated we just got back from the doctor's office and then told us to call and request an appt for 1-2 days. reports the following symptoms for the past few months, worsening shortness of breath and chest pressure, triggers are running late, over exertion and walking. Alleviating factors are sitting for 5-10 minutes and practicing deep breathing exercises. [place] has requested to return to community provider. [place] spoke with [place] and and cautioned them if symptoms get worse to go to ER for evaluation- has agreed to call ambulance for transport to [facility] if needed. [place] had visit with PCP, notes in chart. Care coordination: [place] spoke with Do (medical practice assistant) is scheduled for 05.16.2024 at 1415. Do has agreed to monitor schedule for cancellations and will contact [place] is sooner visit becomes available. [place] has accepted date and time for visit. /elizabeth/ NITHIN Contreras, RN-BC Referral Coordination Initiative Nurse Signed: 05/09/2024 12:43 Receipt Acknowledged By: 05/12/2024 08:23 /es/ Kiara Cash PA-C STAFF PHYSICIAN GAS BLENDER KATHIE MERCADO [place] [facility] [place] [facility] May 09, 2024 11:51 AM LETTERS: LOCAL TITLE: PATIENT LETTER (T) STANDARD TITLE: LETTERS DATE OF NOTE: MAY 09, 2024@11:51 ENTRY DATE: MAY 09, 2024@11:51:59 AUTHOR: KATHIE MERCADO EXP COSIGNER: URGENCY: STATUS: COMPLETED [facility] Toll Free Number Primary Care Telephone Assistance can be reached at extension [phone] [facility] scheduling can be reached at extension [phone] [facility] scheduling can be reached at ext [phone] [facility] [address], [place], [address] Dear Henry, The Referral Coordination Team at [facility] has attempted to contact you on 05.09.2024 to discuss a Cardiology referral that was requested by your healthcare provider. We would appreciate hearing from you so that we can assist in coordinating this care. Please call NITHIN Virk,RN-BC at [phone] Ext [phone] at your earliest convenience. It's important that we process this request as soon as possible to make sure you receive the care your provider requested. Unfortunately if you do not hear from you by 05.23.2024 your healthcare provider will be informed and the request may be discontinued. We look forward to your call and thank you for the opportunity to serve you. Sincerely, Your Primary Care Team [facility] [address] [address] [place] [address] [phone] [facility] [address] [place] [address] [place] [address] [phone] [facility] [address] [facility],[address]st Floor [address] [place] [phone] [place] [address] KATHIE MERCADO [place] [facility] [place] [facility]
--- NOTE | 2024-05-16 14:17 | A.OFFVIS_ITS ---
Vital Signs 05/16/24 14:18 Height 5 ft 6 in Weight 200 lb 9.93 oz BMI 32.4 BP 128/62 Blood Pressure Location Lt brachial Position Sitting Pulse 68 Pulse Source Pulse Oximeter Intake Visit Reasons: [facility] scheduled/ increasing sob/ chest pressure Allergies Penicillins [PENICILLINS] Allergy (Intermediate, Verified 08/04/23 13:54) RASH PENICILLIN Allergy (Unknown, Uncoded 08/04/23 13:54) Rash Medication List - Last Reconciled 05/16/24 by Clayton John MD acetaminophen ER (Tylenol Arthritis Pain) 650 mg PO Q12H ammonium lactate 12% 1 appl topical DAILY aspirin (Adult Aspirin Regimen) 81 mg PO DAILY carboxymethylcellulose sodium 0.5% 1 drp ophthalmic (eye) QID latanoprost 0.005% 1 drp ophthalmic (eye) DAILY lisinopril 10 mg PO DAILY metoprolol tartrate 50 mg PO BID multivitamin (Multiple Vitamins tablet) 1 tab PO DAILY omeprazole 20 mg PO DAILY rosuvastatin 40 mg PO DAILY tamsulosin 0.4 mg PO BEDTIME HPI Comments Details: Negar returns for follow-up. He was seen in consultation July of this year. History of coronary disease and PCI around 2001. Unknown findings. It seems he was mostly stable without any issues and did not have any complaints last time. However, recently, noticing some shortness of breath with activity. He also gets some chest pressure type sensations. Not clear if it is all angina. There is also COPD in his problem list and hence etiology not clear. Many comorbidities. [facility] Medical History (Updated 08/04/23 @ 14:20 by Clayton John MD) Right bundle branch block Peptic gastritis COPD (chronic obstructive pulmonary disease) TIA (transient ischemic attack) Benign prostatic hyperplasia Erectile dysfunction Hyperlipidemia, unspecified Essential hypertension BETINA (obstructive sleep apnea) Atherosclerotic cardiovascular disease Surgical History (Updated 05/16/24 @ 14:27 by Yuko Person) Hx of cardiac cath Family History (Updated 08/04/23 @ 13:59 by Heather Mason) Mother Stroke Father Glaucoma Social History (Updated 08/04/23 @ 13:59 by Heather Mason) Alcohol intake: never Patient Tobacco Use Status: Former Tobacco user Review of Systems Const Denies weakness ENT Denies dizziness Card Reports chest pain, Denies chest pain with activity, Denies syncope, Denies rapid heart rate, Denies pedal edema, Denies edema, Denies leg edema, Denies lightheadedness, Denies palpitations, Reports dyspnea, Denies dyspnea on exertion and Denies orthopnea Resp Denies cough, Reports dyspnea and Denies dyspnea on exertion GI Denies hematochezia and Denies change in stool character Musc Denies abnormal gait, Denies muscle cramps, Denies muscle weakness, Denies numbness, Denies radiating pain into limb and Denies tingling Neuro Denies abnormal gait, Denies dizziness, Denies syncope, Denies numbness, Denies tingling and Denies weakness Endo Denies palpitations Physical Exam Vital Signs: Last Vital Signs Pulse 68 05/16/24 14:18 BP 128/62 05/16/24 14:18 BMI result Body Mass Index 32.4 Const General: comfortable and no acute distress Orientation/consciousness: patient oriented x3 HEENT Other: Unremarkable Head: Yes normal to inspection Neck Neck: Yes normal visual inspection Chest Chest palpation & inspection: normal inspection of the chest Resp Auscultation: clear to auscultation bilaterally Cardio Palpation: normal PMI Heart sounds: S1 normal heart sound present, S2 normal heart sound present, no gallops, no murmurs and no rubs GI Palpation (GI): Soft to palpation Back/Spine/Pelvis Other: unremarkable Skin General skin exam: no rashes or lesions noted Neuro General: patient oriented x3 Extrem General: Yes normal to inspection Psych Mental Status: mental status grossly normal Office Procedures EKG Details: EKG with sinus rhythm at 60/Min; sinus arrhythmia; right bundle-branch block pattern. [id number], Complete Assessment & Plan Assessment & Plan (1) Atherosclerotic cardiovascular disease: Code(s): I25.10 - Atherosclerotic heart disease of [place] coronary artery without angina pectoris Category: Medical (2) Right bundle branch block: Code(s): I45.10 - Unspecified right bundle-branch block Category: Medical Plan Remote history of coronary disease/PCI; many comorbidities; recent concerns of shortness of breath/chest pressure; cardiac vs COPD vs deconditioning vs multifactorial. We will obtain echocardiogram and pharmacological stress perfusion imaging study. Unlikely to exercise adequately on the treadmill. Otherwise, discussed with them that if any worsening of symptoms in the interim from now, till the testing is performed, he should contact 911 for immediate help. He understands this very well. We will also try to expedite testing as much able. For medications, he is already on aspirin/beta-blockers/statins. Nonspecific changes. Follow-up after the above. Emergency precautions discussed as above. Orders: Orders CA echo transthoracic complete Today I25.10 - Atherosclerotic heart disease of [place] coronary artery without angina pectoris CA lexiscan stress w ventura Today I20.9 - Angina pectoris, unspecified, I25.10 - Atherosclerotic heart disease of [place] coronary artery without angina pectoris NM cardiolite stress test Today I25.10 - Atherosclerotic heart disease of [place] coronary artery without angina pectoris, R07.2 - Precordial pain Coding Level of Care Code Est Pt Level 4 (72360) Diagnoses Atherosclerotic cardiovascular disease I25.10 Right bundle branch block I45.10 CPT Codes EKG - CPT: 38584-[id number], Complete ([id number])
[2024-05-16 14:18] VITALS: BP 128/62; PULSE 68; BMI 32.4
== END 2024-05-16 14:46 | disposition home or self-care (01) ==
PROVIDERS: PCP Physician Assistant; Visit Provider Internal Medicine
DX: I25.10 Atherosclerotic heart disease of native coronary artery without angina pectoris (principal); I45.10 Unspecified right bundle-branch block
CPT/HCPCS: 93010; 99214

== ENCOUNTER → 2024-05-16 13:58 | Outpatient (BNVA) | payer OTHER, SELFPAY | PROVIDERS: PCP Physician Assistant; Visit Provider Internal Medicine | DX: I25.10 Atherosclerotic heart disease of native coronary artery without angina pectoris (principal); I45.10 Unspecified right bundle-branch block; R07.2 Precordial pain | CPT/HCPCS: 93005; 99212 ==

== ENCOUNTER → 2024-05-20 10:44 | Outpatient (REF) | payer OTHER, SELFPAY ==
--- NOTE | 2024-05-20 10:47 | CA_ITS ---
Transthoracic Echocardiogram Patient (Last, First, Middle): Negar Knight, Gender: Male Date of : 1935 Age: 88 Procedure Date: 05/20/2024 Procedure Type: Transthoracic Echocardiogram Location: OP Height: 167.64 cm Weight: 88.91 kg BSA: 1.98 m2 Heart Rate: 62 bpm BP: 125 / 55 mmHg Ingot Supervisor: PÉREZ Referring MD: Clayton John MD Symptoms: I25.10 - Atherosclerotic heart disease of [place] coronary artery without... Study Quality: Adequate w contrast ECG Rhythm: Sinus Conclusions: - The left ventricular systolic function is normal. The calculated ejection fraction is 63% by biplane method. - Moderately increased right ventricular cavity size. - There is moderate calcification of the aortic valve. No significant stenosis. Findings Procedure Information Contrast agent, definity, is being given per protocol without apparent complications. Left Ventricle Normal left ventricular cavity size. There is moderately increased left ventricular wall thickness. The left ventricular systolic function is normal. The calculated ejection fraction is 63% by biplane method. There is no evidence of regional wall motion abnormalities. Possible grade 2 diastolic dysfunction. Right Ventricle Moderately increased right ventricular cavity size. There is normal right ventricular systolic function. Atria Both atria are normal in size. Aortic Valve There is moderate calcification of the aortic valve. There is no aortic valve regurgitation. No significant stenosis. Mitral Valve There is mild mitral annular calcification. There is trace mitral valve regurgitation. There is no mitral valve stenosis. Pulmonic Valve The pulmonic valve is likely normal. Tricuspid Valve Normal tricuspid valve structure. There is trace tricuspid valve regurgitation. There is no evidence of pulmonary hypertension. Great Vessels The asc aorta is normal in size. Venous The inferior vena cava is mildly dilated and collapses greater than 50% with inspiration. Pericardium/Pleural There is no evidence of pericardial effusion. Prior Study Comparison No significant change compared to prior study dated: 08/27/2023. Measurements 2D Linear Measurements IVSd: 1.29 0.6-0.9/0.6-1.0 cm LVIDd: 4.70 3.9-5.3/4.2-5.9 cm LVIDd Index: 2.37 2.4-3.2/2.2-3.1 cm/m2 LVIDs: 2.92 2.0-3.6 cm LVPWd: 1.35 0.7-1.1 cm LA Diam: 4.00 2.7-3.8/3.0-4.0 cm LAIDs Index: 2.02 1.5-2.3 cm/m2 LV Mass: 303.29 67-162/88-224 g LV Mass Index: 153.18 43-95/49-115 g/m2 LVOT Diam: 2.30 3.0+(-)1.3 cm 2D Systolic Function EF 4C: 69.70 >55% EF 2C: 58.90 >55% EF BiP: 63.10 >55% Mitral Valve MV Pk E: 1.29 MV PK A: 0.82 MV Decel Time: 205.00 E/A: 1.60 E'Lateral: 9.90 E'Medial: 6.74 E/E' Med: 19.10 E/E' Lat: 13.00 PHT: 60.00 MVA PHT: 3.67 Decel Gooding: 6.27 Aortic Valve AoV Pk Neal: 2.13 AoV Mn Neal: 1.46 AoV VTI: 0.49 AoV Pk Grad: 18.00 Aov Mn Grad: 10.00 CULLEN Cont.VTI: 2.51 LVOT LVOT Pk Neal: 1.43 LVOT Mn Neal: 0.85 LVOT VTI: 0.30 LVOT Pk Grad: 8.00 LVOT Mn Grad: 4.00 LVOT Diam: 2.30 LVOT Area: 4.15 Diastolic Function MV Pk E: 1.29 MV Pk A: 0.82 E/A: 1.60 E'Medial: 6.74 E/E' Med: 19.10 E' Laterial: 9.90 E/E' Lat: 13.00 Right Ventricle TAPSE (mm): 27.50 TVS' Neal: 13.50 Tricuspid Valve TR Pk Neal: 1.59 TR Pk Grad: 10.00 RA Press: 8.00 RVSP: 18.00 Great Vessels Aorta Sinus of Valsalva: 3.80 2.0-3.5 cm Ao Asc: 3.50 2.1-3.4 cm Pulmonary Valve PV Pk Neal: 1.33 Peak PV Grad: 7.00 Updated in Other Vendor System with Status of Final Clayton John MD electronically signed on 05/22/2024 10:32:33 AM with status of Final
--- OUTSIDE RECORDS SUMMARY | 2024-05-20 11:06 | XMS_ITS | Continuity of Care Document ---
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 [facility] Glaucoma Active Condition [facility] [facility] Hematuria (SCT [id number]) Active Condition [facility] HYPERLIPIDEMIA Active Condition [facility] IMPOTENCE, ORGANIC ORIGN Active Condition [facility] Inflamed Seborrheic Keratosis (SCT [id number]) Active Condition [facility] Obesity Active Condition [facility] Obstructive sleep apnea syndrome Active Condition [facility] Primary generalized osteoarthritis Active Condition [facility] 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 [...] EVERY EVENING ORAL ACTIVE JESSENIA YOO 2023 [facility] AMMONIUM LACTATE 12% LOTION APPLY MODERATE AMOUNT TOPICALL Y ONCE DAILY FOR DRY IRRITATE D SKIN TOPICA L ACTIVE 01/25/2025 [id number] 4 KIARA ESPARZA 2023 240 [facility] AMMONIUM LACTATE 12% LOTION APPLY MODERATE AMOUNT TOPICALL Y ONCE DAILY FOR DRY IRRITATE D SKIN TOPICA L DISCONT INUED 11/04/2023 [id number] WILLIAN LUNA 2022 240 [facility] [place] ASPIRIN 81MG TAB,EC TAKE ONE TABLET BY MOUTH DAILY ORAL ACTIVE KIARA ESPARZA 2012 [facility] CAPSAICIN 0.025% CREAM,TOP APPLY A THIN LAYER TOPICALL Y TWICE DAILY NEEDED FOR LOCALIZE D PAIN FOR KNEES TOPICA L ACTIVE 01/25/2025 [id number] 4 KIARA ESPARZA 2023 60 [facility] [place] CAPSAICIN 0.025% CREAM,TOP APPLY A THIN LAYER TOPICALL Y TWICE DAILY NEEDED FOR KNEES TOPICA L DISCONT INUED (EDIT) 11/02/2024 [id number] 4 RA LEONILA BERTRAND 2023 60 [facility] CARBOXYMETH YLCELLULOSE NA 0.5% SOLN,OPH INSTILL 1 DROP INTO EACH EYE FOUR TIMES DAILY NEEDED FOR DRYNESS OPHTHA LMIC ACTIVE 06/02/2024 [id number] 4 KIARA ESPARZA 2023 45 [facility] [place] CARBOXYMETH YLCELLULOSE NA 0.5% SOLN,OPH INSTILL 1 DROP INTO EACH EYE TWICE DAILY NEEDED FOR DRYNESS OPHTHA LMIC DISCONT INUED (EDIT) 05/17/2024 [id number] 3 KIARA ESPARZA 2022 15 [facility] [place] DICLOFENAC NA 1% GEL,TOP APPLY 2 GRAMS TOPICALL Y FOUR TIMES A DAY FOR OSTEOART HRITIS - USE DOSING CARD PROVIDED IN BOX APPLY TO HANDS CRISTINE Kerry 01/23/2024 [id number] 4 GAIL HARPER 2022 100 [facility] [place] EYELID CLEANSER,EY E SCRUB PAD USE 1 PAD TOPICALL Y ONCE DAILY BLEPHARI TIS CRISTINE L ACTIVE 02/16/2025 [id number] 4 Davide FREGOSO 2023 90 [facility] FERROUS SO4 325MG TAB TAKE ONE TABLET BY MOUTH ONCE DAILY TO SUPPLEME NT IRON ORAL DISCONT INUED BY PROVIDE R 11/26/2024 [id number] 4 KIARA ESPARZA 2023 100 [facility] FERROUS SO4 325MG TAB TAKE ONE TABLET BY MOUTH ONCE DAILY TO SUPPLEME NT IRON ORAL DISCONT INUED 10/10/2023 [id number] 4 KIARA ESPARZA 2022 100 [facility] FLUTICASONE PROPIONATE 50MCG/SPRAY SOLN,NASAL, 16GM INSTILL 1 SPRAY INTO EACH NOSTRIL TWICE DAILY FOR NASAL IRRITATI ON/INFLA MMATION NASAL DISCONT INUED 03/02/2024 [id number] 3 KIARA ESPARZA 2022 1 [facility] GUAIFENESIN 600MG TAB,SA TAKE ONE TABLET BY MOUTH TWICE DAILY NEEDED FOR COUGH FOLLOW DOSE WITH FULL GLASS OF WATER ORAL DISCONT INUED 03/02/2024 [id number] 3 KIARA ESPARZA 2022 60 [facility] GUAIFENESIN 600MG TAB,SA TAKE ONE TABLET BY MOUTH TWICE DAILY NEEDED FOR COUGH FOLLOW DOSE WITH FULL GLASS OF WATER ORAL 04/25/2023 [id number] 3 PAULETTE CHOWDHURY 2022 60 [facility] HYLAN G-F20 48MG/6ML INJ,SYRINGE ,6ML INJECT 48MG/6ML INTRA-AR TICULAR NEEDED FOR OSTEOART HRITIS OF THE KNEE DIRECTED BY PROVIDER INTRA- ARTICU LAR ACTIVE 02/02/2025 [id number] 4 SEPTEMBERALONDRA P 2023 2 [facility] HYLAN G-F20 48MG/6ML INJ,SYRINGE ,6ML INJECT 48MG/6ML INTRA-AR TICULAR NEEDED DIRECTED BY PROVIDER INTRA- ARTICU LAR 01/16/2024 [id number] 4 SEPTEMBER,ALONDRA VOSS P 2023 2 [facility] HYPROMELLOS E 0.3% GEL,OPH APPLY 1 TO 2 DROPS INTO EACH EYE AT BEDTIME FOR DRY EYE OPHTHA LMIC ACTIVE 02/16/2025 [id number] 4 Davide FREGOSO 2023 40 [facility] LACTULOSE 10GM/15ML SOLN,ORAL TAKE 30 ML (2 TABLESPO ONS) BY MOUTH TWICE DAILY NEEDED FOR CONSTIPA TION ORAL ACTIVE 06/20/2024 [id number] 4 PAULETTE CHOWDHURY 2023 473 [facility] LATANOPROST 0.005% SOLN,OPH INSTILL 1 DROP INTO EACH EYE AT BEDTIME FOR INCREASE D PRESSURE IN THE EYE OPHTHA LMIC ACTIVE 02/16/2025 [id number] 4 Davide FREGOSO 2023 7.5 [facility] LATANOPROST 0.005% SOLN,OPH INSTILL 1 DROP INTO EACH EYE AT BEDTIME FOR INCREASE D PRESSURE IN THE EYE OPHTHA LMIC DISCONT INUED 06/02/2023 [id number] 3 Davide FREGOSO ICHELE 2022 12.5 [facility] LATANOPROST 0.005% SOLN,OPH INSTILL 1 DROP INTO EACH EYE AT BEDTIME FOR INCREASE D PRESSURE IN THE EYE OPHTHA LMIC 10/28/2023 [id number] 4 Davide FREGOSO ICHELE 2023 12.5 [facility] LIDOCAINE 5% PATCH APPLY 1 PATCH TOPICALL Y ONCE DAILY (LEAVE PATCH ON FOR 12 HOURS THEN LEAVE OFF FOR 12 HOURS) CRISTINE L ACTIVE 04/08/2025 [id number] 4 SHAY HARPEREL Kerry 2023 90 [facility] LISINOPRIL 10MG TAB TAKE ONE TABLET BY MOUTH ONCE DAILY TO CONTROL BLOOD PRESSURE ORAL ACTIVE 04/01/2025 [id number] 4 KIARA ESPARZA 2023 90 [facility] LISINOPRIL 10MG TAB TAKE ONE TABLET BY MOUTH ONCE DAILY TO CONTROL BLOOD PRESSURE ORAL DISCONT INUED 03/02/2024 [id number] 4 KIARA ESPARZA 2022 90 [facility] METOPROLOL TARTRATE 50MG TAB TAKE ONE TABLET BY MOUTH TWICE DAILY FOR BLOOD PRESSURE /HEART ORAL ACTIVE 01/25/2025 [id number] 4 KIARA ESPARZA 2023 180 [facility] [place] METOPROLOL TARTRATE 50MG TAB TAKE ONE TABLET BY MOUTH TWICE DAILY FOR BLOOD PRESSURE /HEART ORAL DISCONT INUED 02/01/2024 [id number] 4 KIARA ESPARZA 2022 180 [facility] MINERAL OIL,LIGHT/P ETROLATUM (PF) OINT,OPH APPLY THIN RIBBON INTO EACH EYE AT BEDTIME OPHTHA LMIC 03/04/2024 [id number] 4 KIARA ESPARZA [address] [facility] MULTIVITAMI NS W/MINERALS TAB TAKE ONE TABLET BY MOUTH EVERY MORNING ORAL ACTIVE KIARA ESPARZA 2012 [facility] OMEPRAZOLE 20MG CAP,EC TAKE ONE CAPSULE BY MOUTH EVERY MORNING 30 MINUTES BEFORE BREAKFAS T ORAL ACTIVE 09/28/2024 [id number] 4 KIARA ESPARZA [address] [facility] OMEPRAZOLE 20MG CAP,EC TAKE ONE CAPSULE BY MOUTH EVERY MORNING 30 MINUTES BEFORE BREAKFAS T ORAL DISCONT INUED 10/30/2023 [id number] 4 KIARA ESPARZA 2022 90 [facility] POLYETHYLEN E GLYCOL 3350 PWDR,ORAL TAKE 17 GRAMS(FI LL CAP TO 17GM LINE) BY MOUTH ONCE DAILY FOR CONSTIPA TION [MIX WITH 4 TO 8OZ. OF [place] ] ORAL ACTIVE 05/10/2025 [id number] 4 KIARA ESPARZA [address] [facility] [place] POLYETHYLEN E GLYCOL 3350 PWDR,ORAL TAKE 17 GRAMS(FI LL CAP TO 17GM LINE) BY MOUTH ONCE DAILY FOR CONSTIPA TION [MIX WITH 4 TO 8OZ. OF [place] ] ORAL DISCONT INUED 04/21/2024 [id number] 4 PAULETTE CHOWDHURY 2023 510 [facility] [place] ROSUVASTATI N CA 40MG TAB TAKE ONE TABLET BY MOUTH ONCE DAILY FOR CHOLESTE ROL ORAL ACTIVE 09/28/2024 [id number] 4 KIARA ESPARZA 2023 90 [facility] [place] ROSUVASTATI N CA 40MG TAB TAKE ONE TABLET BY MOUTH ONCE DAILY FOR CHOLESTE ROL ORAL DISCONT INUED 10/30/2023 [id number] 4 KIARA ESPARZA 2022 90 [facility] [place] TAMSULOSIN HCL 0.4MG CAP TAKE ONE CAPSULE BY MOUTH ONCE DAILY FOR ENLARGED PROSTATE ORAL ACTIVE 04/22/2025 [id number] 4 IKARA ESPARZA 2023 90 [facility] [place] TAMSULOSIN HCL 0.4MG CAP TAKE ONE CAPSULE BY MOUTH ONCE DAILY FOR ENLARGED PROSTATE ORAL DISCONT INUED 06/02/2024 [id number] KIARA ESPARZA 2023 90 [facility] TAMSULOSIN HCL 0.4MG CAP TAKE ONE CAPSULE BY MOUTH ONCE DAILY ORAL DISCONT INUED (EDIT) 03/05/2024 [id number] KIARA ESPARZA 2022 30 [facility] TIMOLOL MALEATE 0.5% SOLN,OPH INSTILL 1 DROP INTO EACH EYE EVERY MORNING OPHTHA LMIC DISCONT INUED 04/29/2023 [id number] 3 Davide FREGOSO SALLIECLIVE 2021 15 [facility] TIMOLOL MALEATE 0.5% SOLN,OPH INSTILL 1 DROP INTO EACH EYE EVERY MORNING OPHTHA LMIC 03/04/2024 [id number] 4 Davide FREGOSO ICHCLIVE 2022 15 [facility] [place] Allergies, Adverse Reactions, Alerts Combined list of allergies from Department of Defense and Veterans Affairs facilities. It does not include entries that were removed or entered in error. Substance Category Reaction Severity Reaction type Status Date Reported Comments Source CORTISONE Propensity to adverse reactions to drug (finding) Raised intraocular pressure active 9 [facility] NAPROXEN Propensity to adverse reactions to drug (finding) Gastric ulcer active 9 [facility] PENICILLIN Propensity to adverse reactions to drug (finding) Itching active 3 [facility] Immunizations Combined list of available immunizations from the Department of Defense and Veterans Affairs facilities. Immunization Series Date Given Administered By Site Reaction Lot Number CVX Code Drug Certified Personal Chef Status Comments Source COVID-19 (MODERNA), MRNA, LNP-S, PF, 50 MCG/0.5 ML (AGES 12+ YEARS) 6 [facility] INFLUENZA, UNSPECIFIED FORMULATION 2023 88 [facility] TDAP 2023 NATANAEL HOUSTON E LEFT DELTO ID [id number] 115 complet [facility] INFLUENZA, HIGH-DOSE, QUADRIVALENT 2022 EFFIE CHEN ER M LEFT DELTO ID [id number] 197 complet ed [facility] RSV, BIVALENT, PROTEIN SUBUNIT RSVPREF, DILUENT RECONSTITUTED , 0.5 ML, PF 2022 EFFIE CHEN ER M RIGHT DELTO ID [id number] 305 complet ed [id number] [facility] COVID-19 (MODERNA), MRNA, LNP-S, BIVALENT BOOSTER, PF, 50 MCG/0.5 ML OR 25MCG/0.25 ML DOSE 1 2022 ALLEN RUIZ LEFT DELTO ID [id number] 229 complet ed [facility] INFLUENZA, UNSPECIFIED FORMULATION 2021 88 complet ed [facility] COVID-19 (MODERNA), MRNA, LNP-S, PF, 100 MCG/0.5ML DOSE OR 50 MCG/0.25ML DOSE 3 2021 207 complet ed [facility] COVID-19 (MODERNA), MRNA, LNP-S, PF, 100 MCG OR 50 MCG DOSE 3 2020 207 complet ed MOD; [id number]; 2 [facility] INFLUENZA VACCINE, QUADRIVALENT, ADJUVANTED 2020 205 complet ed [facility] COVID-19 (MODERNA), MRNA, LNP-S, PF, 100 MCG/0.5 ML DOSE 2 2020 207 complet ed MOD; [id number]; 1 [facility] COVID-19 (MODERNA), MRNA, LNP-S, PF, 100 MCG/0.5 ML DOSE 1 2020 207 complet ed MOD; [id number]; 1 [facility] INFLUENZA, HIGH-DOSE, QUADRIVALENT 2019 197 complet ed [facility] ZOSTER RECOMBINANT 2 2018 187 complet ed [facility] INFLUENZA, HIGH DOSE SEASONAL 2018 135 complet ed Partner: [facility]. Administe red by: JOEL PETERSEN (JFY=[id number]). Partner 6 Lot#: [id number] Mfr: [employer]; Dosage: 0.5 [facility] INFLUENZA, SEASONAL, INJECTABLE 2018 141 complet ed [facility] ZOSTER RECOMBINANT 2018 187 complet ed Partner: [facility]. Administe red by: JOEL PETERSEN (GWC=[phone]). Partner 6 Lot#: [id number] Mfr: [employer]; Dosage: 1 [place] [facility] INFLUENZA, SEASONAL, [...] Apr 27, 2024 11:20 AM Reporting Lab: [facility] [place] [facility] [address] [address] Performing Lab: [facility] [place] [facility] [address] [address] [facility] [place] [facility] LIPID PANEL FASTING CHOLESTEROL [MASS/VOLUM E] IN SERUM OR PLASMA 85 mg/dL 05/02 Specimen Type: SERUM Comment: Hemolysis present analysis cannot be performed. Hemolysis present may falsly elevate Potassium Total and Direct Bili, Iron, AST, %Fe. Ordering Provider: Promise ESPARZA Report Released Date/Time: Apr 27, 2024 11:20 AM Reporting Lab: [facility] [address] [address] Performing Lab: [facility] [address] [address] [facility] LIPID PANEL FASTING TRIGLYCERID E [MASS/VOLUM E] IN SERUM OR PLASMA 130 mg/dL 0 - 150 05/02 Specimen Type: SERUM Comment: Hemolysis present analysis cannot be performed. Hemolysis present may falsly elevate Potassium Total and Direct Bili, Iron, AST, %Fe. Ordering Provider: Promise ESPARZA Report Released Date/Time: Apr 27, 2024 11:20 AM Reporting Lab: [facility] [address] [address] Performing Lab: [address] [address] [facility] LIPID PANEL FASTING CHOLESTEROL IN LDL [MASS/VOLUM E] IN SERUM OR PLASMA BY CALCULATION 29 mg/dL 0 - 129 05/02 Specimen Type: SERUM Comment: Hemolysis present analysis cannot be performed. Hemolysis present may falsly elevate Potassium Total and Direct Bili, Iron, AST, %Fe. Ordering Provider: Promise ESPARZA Report Released Date/Time: Apr 27, 2024 11:20 AM Reporting Lab: [address] [address] Performing Lab: [facility] [address] [address] [facility] LIPID PANEL FASTING CHOLESTEROL .TOTAL/CHOL ESTEROL IN HDL [MASS RATIO] IN SERUM OR PLASMA 2.8 05/02 Specimen Type: SERUM Comment: Hemolysis present analysis cannot be performed. Hemolysis present may falsly elevate Potassium Total and Direct Bili, Iron, AST, %Fe. Ordering Provider: Promise ESPARZA Report Released Date/Time: Apr 27, 2024 11:20 AM Reporting Lab: [facility] [place] [facility] [address] [address] Performing Lab: [facility] [address] [address] [facility]N [facility] LIPID PANEL FASTING CHOLESTEROL IN HDL [MASS/VOLUM E] IN SERUM OR PLASMA 30 mg/dL 40 - 60 05/02 L Specimen Type: SERUM Comment: Hemolysis present analysis cannot be performed. Hemolysis present may falsly elevate Potassium Total and Direct Bili, Iron, AST, %Fe. Ordering Provider: Promise ESPARZA Report Released Date/Time: Apr 27, 2024 11:20 AM Reporting Lab: [facility] [address] [address] Performing Lab: [facility]ITALUSETS [address] [address] [facility]ITAL[facility]N [facility]ITALUSE [facility] LIVER FUNCTION PROTEIN [MASS/VOLUM E] IN SERUM OR PLASMA 6.2 g/dL 6.0 - 8.3 05/02 Specimen Type: SERUM Comment: Hemolysis present analysis cannot be performed. Hemolysis present may falsly elevate Potassium Total and Direct Bili, Iron, AST, %Fe. Ordering Provider: Promise ESPARZA Report Released Date/Time: Apr 27, 2024 11:20 AM Reporting Lab: [facility]ITALRU[facility]TRN [facility] [address] [address] Performing Lab: [facility]N [facility]ITALUSE[facility] [address] [address] [facility]ITALRU[facility]TRN [facility]ITALUSE [facility] LIVER FUNCTION ALBUMIN [MASS/VOLUM E] IN SERUM OR PLASMA 3.8 g/dL 3.5 - 5.0 05/02 Specimen Type: SERUM Comment: Hemolysis present analysis cannot be performed. Hemolysis present may falsly elevate Potassium Total and Direct Bili, Iron, AST, %Fe. Ordering Provider: Promise ESPARZA Report Released Date/Time: Apr 27, 2024 11:20 AM Reporting Lab: [facility]TRN [facility]ETS [facility] [address] [address] Performing Lab: [facility] [place] [facility] [address] [address] [facility] [place] [facility] LIVER FUNCTION ALKALINE PHOSPHATASE [ENZYMATIC ACTIVITY/VO LUME] IN SERUM OR PLASMA 35 U/L 40 - 150 05/02 L Specimen Type: SERUM Comment: Hemolysis present analysis cannot be performed. Hemolysis present may falsly elevate Potassium Total and Direct Bili, Iron, AST, %Fe. Ordering Provider: Promise ESPARZA Report Released Date/Time: Apr 27, 2024 11:20 AM Reporting Lab: [facility] [place] [facility] [address] [address] Performing Lab: [facility] [place] [facility] [address] [address] [facility] [place] [facility] LIVER FUNCTION ASPARTATE AMINOTRANSF ERASE [ENZYMATIC ACTIVITY/VO LUME] IN SERUM OR PLASMA 22 U/L 5 - 34 05/02 Specimen Type: SERUM Comment: Hemolysis present analysis cannot be performed. Hemolysis present may falsly elevate Potassium Total and Direct Bili, Iron, AST, %Fe. Ordering Provider: Promise ESPARZA Report Released Date/Time: Apr 27, 2024 11:20 AM Reporting Lab: [facility] [place] [facility] [address] [address] Performing Lab: [facility] [place] [facility] [address] [address] [facility] [place] [facility] LIVER FUNCTION ALANINE AMINOTRANSF ERASE [ENZYMATIC ACTIVITY/VO LUME] IN SERUM OR PLASMA 12 U/L 05/02 Specimen Type: SERUM Comment: Hemolysis present analysis cannot be performed. Hemolysis present may falsly elevate Potassium Total and Direct Bili, Iron, AST, %Fe. Ordering Provider: Promise ESPARZA Report Released Date/Time: Apr 27, 2024 11:20 AM Reporting Lab: [facility] [place] [facility] [address] [address] Performing Lab: [facility] [place] [facility] [address] [address] [facility] [place] [facility] LIVER FUNCTION BILIRUBIN.T OTAL [MASS/VOLUM E] IN SERUM OR PLASMA commen tmg/dL 0.2 - 1.2 05/02 Specimen Type: SERUM Comment: Hemolysis present analysis cannot be performed. Hemolysis present may falsly elevate Potassium Total and Direct Bili, Iron, AST, %Fe. Ordering Provider: Promise ESPARZA Report Released Date/Time: Apr 27, 2024 11:20 AM Reporting Lab: [facility]USE[facility] [address] [address] Performing Lab: [facility]ITALRL TRN [facility] [address] [address] [facility] BASIC METABOLIC PANEL (fasting) UREA NITROGEN [MASS/VOLUM E] IN SERUM OR PLASMA 24 mg/dL 7 - 25 05/02 Specimen Type: SERUM Comment: Hemolysis present analysis cannot be performed. Hemolysis present may falsly elevate Potassium Total and Direct Bili, Iron, AST, %Fe. Ordering Provider: Promise ESPARZA Report Released Date/Time: Apr 27, 2024 11:20 AM Reporting Lab: [facility]ITALRL [facility] [address] [address] Performing Lab: [facility]ITAL[facility] TRN [address] [address] [facility] BASIC METABOLIC PANEL (fasting) GLUCOSE [MASS/VOLUM E] IN SERUM OR PLASMA 93 mg/dL 65 - 100 05/02 Specimen Type: SERUM Comment: Hemolysis present analysis cannot be performed. Hemolysis present may falsly elevate Potassium Total and Direct Bili, Iron, AST, %Fe. Ordering Provider: Promise ESPARZA Report Released Date/Time: Apr 27, 2024 11:20 AM Reporting Lab: [facility] [address] [address] Performing Lab: [facility] TRN [address] [address] [facility] BASIC METABOLIC PANEL (fasting) SODIUM [MOLES/VOLU ME] IN SERUM OR PLASMA 140 mmol/L 135 - 145 05/02 Specimen Type: SERUM Comment: Hemolysis present analysis cannot be performed. Hemolysis present may falsly elevate Potassium Total and Direct Bili, Iron, AST, %Fe. Ordering Provider: Promise ESPARZA Report Released Date/Time: Apr 27, 2024 11:20 AM Reporting Lab: [facility] [address] [address] Performing Lab: [facility] [address] [address] [facility] BASIC METABOLIC PANEL (fasting) POTASSIUM [MOLES/VOLU ME] IN SERUM OR PLASMA 5.1 mmol/L 3.5 - 5.0 05/02 H Specimen Type: SERUM Comment: Hemolysis present analysis cannot be performed. Hemolysis present may falsly elevate Potassium Total and Direct Bili, Iron, AST, %Fe. Ordering Provider: Promise ESPARZA Report Released Date/Time: Apr 27, 2024 11:20 AM Reporting Lab: [facility] [address] [address] Performing Lab: [address] [address] [facility] BASIC METABOLIC PANEL (fasting) CHLORIDE [MOLES/VOLU ME] IN SERUM OR PLASMA 112 mmol/L 100 - 110 05/02 H Specimen Type: SERUM Comment: Hemolysis present analysis cannot be performed. Hemolysis present may falsly elevate Potassium Total and Direct Bili, Iron, AST, %Fe. Ordering Provider: Promise ESPARZA Report Released Date/Time: Apr 27, 2024 11:20 AM Reporting [facility]: [facility] [address] [address] Performing Lab: [facility] [address] [address] [facility] BASIC METABOLIC PANEL (fasting) CARBON DIOXIDE, TOTAL [MOLES/VOLU ME] IN SERUM OR PLASMA 19 meq/L 20 - 30 05/02 L Specimen Type: SERUM Comment: Hemolysis present analysis cannot be performed. Hemolysis present may falsly elevate Potassium Total and Direct Bili, Iron, AST, %Fe. Ordering Provider: Promise ESPARZA Report Released Date/Time: Apr 27, 2024 11:20 AM Reporting Lab: [facility] [address] [address] Performing Lab: [facility] [address] [address] [facility] BASIC METABOLIC PANEL (fasting) CREATININE [MASS/VOLUM E] IN SERUM OR PLASMA 0.87 mg/dL 0.50 - 1.40 05/02 Specimen Type: SERUM Comment: Hemolysis present analysis cannot be performed. Hemolysis present may falsly elevate Potassium Total and Direct Bili, Iron, AST, %Fe. Ordering Provider: Promise ESPARZA Report Released Date/Time: Apr 27, 2024 11:20 AM Reporting Lab: [facility] [address] [address] Performing Lab: [facility] [address] [address] [place] [facility] BASIC METABOLIC PANEL (fasting) GLOMERULAR FILTRATION [...] Apr 27, 2024 11:20 AM Reporting Lab: [facility]RU[facility] [address] [address] Performing Lab: [facility]PITALRATHENS-[facility]ITALN [facility]ITALUSECATSK[facility] [address] [address] [facility] LIPID PANEL FASTING CHOLESTEROL [MASS/VOLUM E] IN SERUM OR PLASMA 107 mg/dL 01/17 Specimen Type: SERUM No comment entered. Ordering Provider: Promise ESPARZA Report Released Date/Time: Sep 28, 2023 11:20 AM Reporting Lab: [facility] [place] [facility] [address] [address] Performing Lab: [facility] [place] [facility] [address] [address] [facility] LIPID PANEL FASTING TRIGLYCERID E [MASS/VOLUM E] IN SERUM OR PLASMA 225 mg/dL 0 - 150 01/17 H Specimen Type: SERUM No comment entered. Ordering Provider: Promise ESPARZA Report Released Date/Time: Sep 28, 2023 11:20 AM Reporting Lab: [facility] [place] [facility] [address] [address] Performing Lab: [facility] [place] [facility] [address] [address] [facility] [facility] LIPID PANEL FASTING CHOLESTEROL IN LDL [MASS/VOLUM E] IN SERUM OR PLASMA BY CALCULATION 33 mg/dL 0 - 129 01/17 Specimen Type: SERUM No comment entered. Ordering Provider: Promise ESPARZA Report Released Date/Time: Sep 28, 2023 11:20 AM Reporting Lab: [facility] [place] [facility] [address] [address] Performing Lab: [facility] [place] [facility] [address] [address] [facility] [place] [facility] LIPID PANEL FASTING CHOLESTEROL .TOTAL/CHOL ESTEROL IN HDL [MASS RATIO] IN SERUM OR PLASMA 3.7 01/17 Specimen Type: SERUM No comment entered. Ordering Provider: Promise ESPARZA Report Released Date/Time: Sep 28, 2023 11:20 AM Reporting Lab: [facility] [place] [facility] [address] [address] Performing Lab: [facility] [place] [facility] [address] [address] [facility] [place] [facility] LIPID PANEL FASTING CHOLESTEROL IN HDL [MASS/VOLUM E] IN SERUM OR PLASMA 29 mg/dL 40 - 60 01/17 L Specimen Type: SERUM No comment entered. Ordering Provider: Promise ESPARZA Report Released Date/Time: Sep 28, 2023 11:20 AM Reporting Lab: [facility]ITALRL TRN [facility]PITALUSETS [facility] [address] [address] Performing Lab: [facility]PITALRL WSTRN [facility]ITALUSECATSK[facility] [address] [address] [facility]OSPITALRL WSTRN [facility]ITALUSE [facility] VITAMIN D (25-OH) 25-HYDROXYV ITAMIN D3 [MASS/VOLUM E] IN SERUM OR PLASMA 40 ng/mL 20 - 50 01/17 Specimen Type: SERUM No comment entered. Ordering Provider: Promise ESPARZA Report Released Date/Time: Sep 28, 2023 11:20 AM Reporting Lab: [facility]ITALRU[facility]STTRN [facility] HOSPITALUSE[address] [address] Performing Lab: [facility]ITALRL TRN [facility]OSPITALUSE[address] [address] [facility] HOSPITALRATHENS-LIMESTONE HOSPITALN [facility] HOSPITALUSE [facility] BASIC METABOLIC PANEL (fasting) UREA NITROGEN [MASS/VOLUM E] IN SERUM OR PLASMA 17 mg/dL 7 - 25 01/17 Specimen Type: SERUM No comment entered. Ordering Provider: Promise ESPARZA Report Released Date/Time: Sep 28, 2023 11:20 AM Reporting Lab: [facility]ITALRL TRN [facility]ITALUSECATSK[facility] [address] [address] Performing Lab: [facility]PITALRL WSTRN [facility]OSPITALUSETS [facility] [address] [address] [facility]ITALRL TRN [facility] HOSPITALUSE [facility] BASIC METABOLIC PANEL (fasting) GLUCOSE [MASS/VOLUM E] IN SERUM OR PLASMA 93 mg/dL 65 - 100 01/17 Specimen Type: SERUM No comment entered. Ordering Provider: Promise ESPARZA Report Released Date/Time: Sep 28, 2023 11:20 AM Reporting Lab: [facility]ITALRL [facility]N [facility]PITALUSE[address] [address] Performing Lab: [facility]ITALRL [facility] [place] [facility] [address] [address] [facility] [place] [facility] BASIC METABOLIC PANEL (fasting) SODIUM [MOLES/VOLU ME] IN SERUM OR PLASMA 141 mmol/L 135 - 145 01/17 Specimen Type: SERUM No comment entered. Ordering Provider: Promise ESPARZA Report Released Date/Time: Sep 28, 2023 11:20 AM Reporting Lab: [facility] [place] [facility] [address] [address] Performing Lab: [facility] [place] [facility] [address] [address] [facility]ITALRL [facility] [place] [facility] BASIC METABOLIC PANEL (fasting) POTASSIUM [MOLES/VOLU ME] IN SERUM OR PLASMA 4.7 mmol/L 3.5 - 5.0 01/17 Specimen Type: SERUM No comment entered. Ordering Provider: Promise ESPARZA Report Released Date/Time: Sep 28, 2023 11:20 AM Reporting Lab: [facility] [place] [facility] [address] [address] Performing Lab: [facility] [place] [facility] [address] [address] [facility]PITALRL WSTRN [place] [facility] BASIC METABOLIC PANEL (fasting) CHLORIDE [MOLES/VOLU ME] IN SERUM OR PLASMA 109 mmol/L 100 - 110 01/17 Specimen Type: SERUM No comment entered. Ordering Provider: Promise ESPARZA Report Released Date/Time: Sep 28, 2023 11:20 AM Reporting Lab: [facility] [place] [facility] [address] [address] Performing Lab: [facility] [place] [facility] [address] [address] [facility]ITALRL [facility] [place] [facility] BASIC METABOLIC PANEL (fasting) CARBON DIOXIDE, TOTAL [MOLES/VOLU ME] IN SERUM OR PLASMA 25 meq/L 20 - 30 01/17 Specimen Type: SERUM No comment entered. Ordering Provider: Promise ESPARZA Report Released Date/Time: Sep 28, 2023 11:20 AM Reporting Lab: [facility] [place] [facility] [address] [address] Performing Lab: [facility] [place] [facility] [address] [address] [facility] [place] [facility] BASIC METABOLIC PANEL (fasting) CREATININE [MASS/VOLUM E] IN SERUM OR PLASMA 0.86 mg/dL 0.50 - 1.40 01/17 Specimen Type: SERUM No comment entered. Ordering Provider: Promise ESPARZA Report Released Date/Time: Sep 28, 2023 11:20 AM Reporting Lab: [facility] [place] [facility] [address] [address] Performing Lab: [facility] [place] [facility] [address] [address] [facility] [place] [facility] BASIC METABOLIC PANEL (fasting) GLOMERULAR FILTRATION RATE/1.73 SQ M.PREDICTED [VOLUME RATE/AREA] IN SERUM, PLASMA OR BLOOD BY CREATININE- BASED FORMULA (CKD-EPI 2020) 84 mL/min 60 01/17 Specimen Type: SERUM No comment entered. Ordering Provider: Promise ESPARZA Report Released Date/Time: Sep 28, 2023 11:20 AM Reporting Lab: [facility] [place] [facility] [address] [address] Performing Lab: [facility] [place] [facility] [address] [address] [facility] [place] [facility] LIVER FUNCTION PROTEIN [MASS/VOLUM E] IN SERUM OR PLASMA 6.1 g/dL 6.0 - 8.3 01/17 Specimen Type: SERUM No comment entered. Ordering Provider: Promise ESPARZA Report Released Date/Time: Sep 28, 2023 11:20 AM Reporting Lab: [facility] [place] [facility] [address] [address] Performing Lab: [facility] [place] [facility] [address] [address] [facility] [place] [facility] LIVER FUNCTION ALBUMIN [MASS/VOLUM E] IN SERUM OR PLASMA 3.9 g/dL 3.5 - 5.0 01/17 Specimen Type: SERUM No comment entered. Ordering Provider: Promise ESPARZA Report Released Date/Time: Sep 28, 2023 11:20 AM Reporting Lab: [facility] [place] [facility] [address] [address] Performing Lab: [facility] [place] [facility] [address] [address] [facility] [place] [facility] LIVER FUNCTION ALKALINE PHOSPHATASE [ENZYMATIC ACTIVITY/VO LUME] IN SERUM OR PLASMA 44 U/L 40 - 150 01/17 Specimen Type: SERUM No comment entered. Ordering Provider: Promise ESPARZA Report Released Date/Time: Sep 28, 2023 11:20 AM Reporting Lab: [facility] [place] [address] [address] Performing Lab: [facility] [place] [facility] [address] [address] [facility] [place] [facility] LIVER FUNCTION ASPARTATE AMINOTRANSF ERASE [ENZYMATIC ACTIVITY/VO LUME] IN SERUM OR PLASMA 14 U/L 5 - 34 01/17 Specimen Type: SERUM No comment entered. Ordering Provider: Promise ESPARZA Report Released Date/Time: Sep 28, 2023 11:20 AM Reporting Lab: [facility] [place] [facility] [address] [address] Performing Lab: [facility] [place] [facility] [address] [address] [facility] [place] [facility] LIVER FUNCTION ALANINE AMINOTRANSF ERASE [ENZYMATIC ACTIVITY/VO LUME] IN SERUM OR PLASMA 14 U/L 01/17 Specimen Type: SERUM No comment entered. Ordering Provider: Promise ESPARZA Report Released Date/Time: Sep 28, 2023 11:20 AM Reporting Lab: [facility] [place] [facility] [address] [address] Performing Lab: [facility] [place] [facility] [address] [address] [facility] [place] [facility] LIVER FUNCTION BILIRUBIN.T OTAL [MASS/VOLUM E] IN SERUM OR PLASMA 0.4 mg/dL 0.2 - 1.2 01/17 Specimen Type: SERUM No comment entered. Ordering Provider: Promise ESPARZA Report Released Date/Time: Sep 28, 2023 11:20 AM Reporting Lab: [facility] [place] [facility] [address] [address] Performing Lab: [facility] [place] [address] [address] [facility] [place] [facility] HEMOGLOBI N A1C PANEL HEMOGLOBIN [...] PM Reporting Lab: [facility] [place] [address] [address] Performing Lab: [facility] [place] [address] [address] [facility] [place] [facility] LIPID PANEL FASTING CHOLESTEROL [MASS/VOLUM E] IN SERUM OR PLASMA 109 mg/dL 09/20 Specimen Type: SERUM No comment entered. Ordering Provider: Promise ESPARZA Report Released Date/Time: Jun 02, 2023 02:59 PM Reporting Lab: [facility] [place] [facility] [address] [address] Performing Lab: [facility] [place] [address] [address] [facility] [place] [facility] LIPID PANEL FASTING TRIGLYCERID E [MASS/VOLUM E] IN SERUM OR PLASMA 202 mg/dL 0 - 150 09/20 H Specimen Type: SERUM No comment entered. Ordering Provider: Promise ESPARZA Report Released Date/Time: Jun 02, 2023 02:59 PM Reporting Lab: [facility]ITALRL W[facility]N [facility]USE[facility] [address] [address] Performing Lab: [facility]ITALRL WSTRN [facility]ITALUSECATSK[facility] [address] [address] [facility]PITALRL TRN [facility]ITALUSE [facility] LIPID PANEL FASTING CHOLESTEROL IN LDL [MASS/VOLUM E] IN SERUM OR PLASMA BY CALCULATION 36 mg/dL 0 - 129 09/20 Specimen Type: SERUM No comment entered. Ordering Provider: Promise ESPARZA Report Released Date/Time: Jun 02, 2023 02:59 PM Reporting Lab: [facility]ITALRL [facility]N [facility]OSPITALUSE[address] [address] Performing Lab: [facility]ITALRL W[facility]N [facility]ITALUSE[address] [address] [facility]OSPITALRL [facility]ERN [facility]OSPITALUSE [facility] LIPID PANEL FASTING CHOLESTEROL .TOTAL/CHOL ESTEROL IN HDL [MASS RATIO] IN SERUM OR PLASMA 3.3 09/20 Specimen Type: SERUM No comment entered. Ordering Provider: Promise ESPARZA Report Released Date/Time: Jun 02, 2023 02:59 PM Reporting Lab: [facility]ITALRL [facility] [place] [address] [address] Performing Lab: [facility]ITALUSETS [address] [address] [facility]RL TRN [facility]PITALUSE [facility] LIPID PANEL FASTING CHOLESTEROL IN HDL [MASS/VOLUM E] IN SERUM OR PLASMA 33 mg/dL 40 - 60 09/20 L Specimen Type: SERUM No comment entered. Ordering Provider: Promise ESPARZA Report Released Date/Time: Jun 02, 2023 02:59 PM Reporting Lab: [facility]PITALRL W[facility]N MASSUSE[address] [address] Performing Lab: [facility] [place] [facility] 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, bilater al upper limbs<b r/> LEELEE STEINBERG LIE E 11/21 [facility] En[facility] [id number] 11/21 [facility] En[facility] [id number] 11/21 [facility] En[facility] [id number] 11/27 [facility] En[facility] [id number] 11/28 [facility] OFFICE O/P NEW LOW 30-44 MIN [id number] Diagnos is: ICD-10- CM 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 , 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<br/ > KIARA ESPARZA 12/03 [facility] En[facility] [id number] 12/03 [facility] En[facility] [id number] 12/03 [facility] En[facility] [id number] 12/18 [facility] EYE EXAM ESTABLISH PATIENT [id number] Diagnos is: ICD-10- CM 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<br/ > ABIMBOLA FREGOSO 12/18 [facility] En[facility] [id number] 12/19 [facility] FIT SPECTACLES MULTIFOCAL [id number] Diagnos is: ICD-10- CM Z46.0 Encount er for fit/adj st of spectac les and contact lenses< br/> MOLLY CAMACHO A 12/19 [facility] En[facility] [id number] 12/24 [facility] OFFICE O/P EST SF 10-19 MIN [id number] Diagnos is: ICD-10- CM 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
ZAID FLORES 02/04 [facility] En[facility] [id number] 02/06 [facility] OFFICE O/P EST MOD 30-39 MIN [id number] Diagnos is: ICD-10- CM M15.0 Primary general ized (osteo) arthrit is
AFTAB TEMPLE P 02/06 [facility] REPAIR & ADJUST SPECTACLES [id number] Diagnos is: ICD-10- CM Z46.0 Encount er for fit/adj st of spectac les and contact lenses< br/> ISELA DELEON 02/23 [facility] En[facility] [id number] 02/27 [facility] En[facility] [id number] 02/27 [facility] OFFICE O/P EST LOW 20-29 MIN [id number] Diagnos is: ICD-10- CM I11.9 Hyperte nsive heart disease without heart failure
KIARA ESPARZA 03/02 [facility] En[facility] [id number] 03/03 [facility] En[facility] [id number] 03/03 [facility] En[facility] [id number] 03/04 [facility] En[facility] [id number] 03/06 [facility] Encounter [id number] 03/16 [facility] COLLJ & INTERPJ DATA EA 30 D [id number] Diagnos is: ICD-10- CM G47.30 Sleep apnea, unspeci fied
TAJ ROBBINS 03/16 [facility] En[facility] [id number] 03/26 [facility] En[facility] [id number] 03/26 [facility] DEBRIDE NAIL 6 [place] MORE [id number] Diagnos is: ICD-10- CM L60.3 Nail dystrop hy
ZAID FLORES YAEL 04/09 [facility] En[facility] [id number] 05/11 [facility] Encounter [id number] 05/17 [facility] OFFICE O/P EST LOW 20 MIN [id number] Diagnos is: ICD-10- CM I11.9 Hyperte nsive heart disease without heart failure
KIARA ESPARZA 06/02 [facility] HC PRO PHONE CALL 21-30 MIN [id number] Diagnos is: ICD-10- CM E78.5 Hyperli pidemia , unspeci fied
ALFA YOO A 06/09 [facility] En[facility] [id number] 06/11 [facility] DEBRIDE NAIL 6 [place] MORE [id number] Diagnos is: ICD-10- CM L60.3 Nail dystrop hy
ZAID FLORES YAEL 06/18 [facility] OFFICE O/P EST LOW 20 MIN [id number] Diagnos is: ICD-10- CM G56.01 Carpal tunnel syndrom e, right upper limb
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, left eye, severe stage<b r/> ZENOBIA,SD JAZMYNE [facility] INTRM OPH EXAM EST PATIENT [id number] Diagnos is: ICD-10- CM H40.111 3 Primary open-an gle glaucom a, right eye, severe stage<b r/> ZENOBIA,ABIMBOLA JAZMYNE [facility] En[facility] [id number] [facility] Encounter [id number] 08/03 [facility] En[facility] [id number] 08/06 [facility] OFFICE O/P EST MOD 30 MIN [id number] Diagnos is: ICD-10- CM M15.0 Primary general ized (osteo) arthrit is
AFTAB TEMPLE JOSE LUIS P 08/06 [facility] MTMS BY PHARM EST 15 MIN [id number] Diagnos is: ICD-10- CM E78.2 Mixed hyperli pidemia
ALFA YOO A 08/16 [facility] TRIM NAIL(S) [id number] Diagnos is: ICD-10- CM L60.3 Nail dystrop hy
ZAID FLORES 08/25 [facility] OFFICE O/P EST LOW 20 MIN [id number] Diagnos is: ICD-10- CM I11.9 Hyperte nsive heart disease without heart failure
KIARA ESPARZA 09/27 [facility] En[facility] [id number] Kerry DALLAS 09/28 [facility] Encounter [id number] 10/06 [facility] Encounter [id number] 10/22 [facility] TRIM NAIL(S) [id number] Diagnos is: ICD-10- CM L60.3 Nail dystrop hy
ZAID FLORES YAEL 11/01 [facility] Out[facility] Encounter [id number] 11/25 [facility]counter [id number] 12/09 [facility] Encounter [id number] 12/09 [facility] [id number] 12/09 [facility] En[facility] [id number] 12/20 [facility] [id number] 12/21 [facility] En[facility] [id number] 01/05 [facility] TRIM NAIL(S) [id number] Diagnos is: ICD-10- CM L60.3 Nail dystrop hy
ZAID FLORES YAEL 01/11 [facility] OFFICE O/P EST LOW 20 MIN [id number] Diagnos is: ICD-10- CM G47.30 Sleep apnea, unspeci fied
KIARA ESPARZA 01/24 [facility] [id number] 02/04 [facility] En[facility] [id number] 02/04 [facility] INTRM OPH EXAM EST PATIENT [id number] Diagnos is: ICD-10- CM L71.8 Other rosacea
ABIMBOLA FREGOSO 02/15 [facility] En[facility] [id number] 02/15 [facility]counter [id number] 02/24 [facility]counter [id number] 02/24 [facility]counter [id number] 03/07 [facility]counter [id number]/21 [facility] NURSING ASSESSMENT /EVALUATN [id number] Diagnos is: ICD-10- CM R19.4 Change in bowel habit<b r/> Kerry DALLAS 03/22 [facility] OFFICE O/P EST LOW 20 MIN [id number] Diagnos is: ICD-10- CM K59.00 Constip ation, unspeci fied
JIE CHOWDHURY 03/22 [facility] TRIM NAIL(S) [id number] Diagnos is: ICD-10- CM L60.3 Nail dystrop hy
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, lumbar region< br/> Krishan HARPER 04/07 [facility] Out[facility] Encounter [id number] 04/07 [facility] RPR&REFITG SPECT XCP APHAKIA [id number] Diagnos is: ICD-10- CM Z46.0 Encount er for fit/adj st of spectac les and contact lenses< br/> Charlie JOSÉ 04/20 [facility] Out[facility] Encounter [id number] 04/20 [facility] Out[facility] Encounter [id number] 04/21 [facility] Outpatient Encounter [id number] 05/06 [facility] COLLJ & INTERPJ DATA EA 30 D [id number] Diagnos is: ICD-10- CM G47.30 Sleep apnea, unspeci fied
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
KIARA ESPARZA 05/09 [facility] Social History Combined list of available smoking, tobacco, and other social history from Department of Defense and Veterans Affairs facilities. Social History Type Response Date Comment Source Tobacco smoking status [facility] VA-TOBACCO FORMER USER 12/21/2023 [facility] History of tobacco use VA-TOBACCO QUIT 15 YRS OR MORE 12/21/2023 [facility] History of tobacco use VA-TOBACCO FORMER USER 10/31/2022 [facility] History of tobacco use VA-TOBACCO FORMER USER 09/17/2021 [facility] History of tobacco use VA-TOBACCO FORMER USER 08/15/2020 [facility] History of tobacco use VA-TOBACCO QUIT 15 YRS OR MORE 05/12/2019 [facility] History of tobacco use [place]-TOBACCO QUIT 15 YRS OR MORE 05/31/2018 [facility] History of tobacco use QUIT TOBACCO USE > 7 YEARS AGO 02/16/2017 quit 16 years ago [facility] History of tobacco use QUIT TOBACCO USE > 7 YEARS AGO 11/13/2015 [facility] History of tobacco use QUIT TOBACCO USE > 7 YEARS AGO 05/12/2013 quit 2002 [facility] Plan of Care List of future care activities from [facility] facilities. Additional future care activities may be listed in the Assessment and Plan section. Date/Time Care Activity Care Activity Detail Facili ty 06/03/2024 AMBULATORY - MEDICINE [facility] 06/22/2024 AMBULATORY - MEDICINE [facility] [place] [facility] 07[facility]05/2024 AMBULATORY - MEDICINE [facility] [place] [facility] 08/05/2024 AMBULATORY - MEDICINE [facility] [place] [facility] 08[facility]19/2024 AMBULATORY - MEDICINE [facility] [place] [facility] 09/13/2024 AMBULATORY - MEDICINE [facility] [place] [facility] 09[facility]13/2024 AMBULATORY - MEDICINE [facility] [place] [facility] 05/09/2024 Consult Order [facility] ARDIOLOGY Cons Architecture Faculty Member's Choice [facility] Advance Directives List of completed, amended, or rescinded Advance Directives on record at [facility] facilities. An actual copy of the Directive is not included. Date Advance Directive Provider Source 11/03/2022 ADVANCE DIRECTIVE [facility]EN[facility]A CARCAMO [facility] 08/16/2020 ADVANCE DIRECTIVE EDMUND MORGAN [facility]
--- OUTSIDE RECORDS SUMMARY | 2024-05-20 11:10 | XMS_ITS | Patient Health Record ---
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 Name Role Phone Luis F Copeland Primary Care Provider Un available Elmo Minor Unavailable [phone] Fior SHEARER, Jeffery Unavailable Unavailable ALLERGIES Allergen (clinical drug ingredient) Drug/Non Drug Allergy documented on EMR Reaction Allergy Type Onset Date Status penicillin G Penicillin G Sodium Unknown Drug Allergy Active REASON FOR REFERRAL No Information MEDICATIONS Medication SIG (Take, Route, Frequency, Duration) Notes Start Date End Date Status Colace 100 MG 1 capsule as needed Orally Once a day for 30 day(s) Active Rosuvastatin Calcium 40 MG 1 tablet Oral ly Once a day for 30 day(s) Active Artificial Tear Acti ve Carboxymethylcellulose Sod P F 0.25 % as directed Ophthalmic Active Metoprolol Tartrate 50 MG 1 tablet with food Orally Twice a day for 30 day(s) Active Omeprazole Magnesium 20 MG 1 tablet Oral ly Once a day Active Multivitamin Adults - as directed Orally Active Metoprolol Succinate ER 50 MG TK 1 T PO BID Orally Active Aspirin Adult Low Dose 81 MG 1 tablet Or ally Once a day for 30 day(s) Not-Taking Tamsulosin HCl 0.4 MG 1 capsule Orally Once a day for 30 day(s) Active Iron 325 (65 Fe) MG 1 tablet Orally Once a day Active Timolol Maleate 0.5 % 1 drop into affected eye Ophthalmic Once a day Active Tylenol Arthritis Pain 650 MG 2 tablets as needed Orally every 8 hrs Active Aspirin 81 81 MG 1 tablet Orally Once a day for 30 day(s) Active IMMUNIZATIONS Vaccine Route Administration Date Status Comme nts Influenza Unknown 02/11/2018 Administered Influenza Unknown 02/23/2019 Administered Influenza Unknown 01/31/2020 Administered SOCIAL HISTORY Tobacco Use: Social History Observation Description Date Details (start date - stop date) Never Smoker NA - NA Sex Assigned At : Social History Observation Description Sex Assigned At Unknown Tobacco Use/Smoking Question Answer Notes Patient is a nonsmoker Alcohol Screen Question Answer Notes Did you have a drink containing alcohol in the p ast year? 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 Castillo CAD--stent(s) placed in 2001-Dr. Childress Iron Deficiency Anemia in 18 10--EGD and Colonoscopy with Dr. 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 Stover 07/2017 right eye cataract Bilateral inguinal hernia- Evgeny lo left hand trigger finger
== END ==
LOC: HO.CARD 10:44
PROVIDERS: PCP Physician Assistant; Visit Provider Internal Medicine
DX: I25.10 Atherosclerotic heart disease of native coronary artery without angina pectoris (principal)
CPT/HCPCS: 93306; Q9957

== ENCOUNTER → 2024-05-20 10:47 | Outpatient (BNV) | payer OTHER, SELFPAY | PROVIDERS: PCP Physician Assistant; Visit Provider Internal Medicine | DX: I35.8 Other nonrheumatic aortic valve disorders (principal); I34.81 Nonrheumatic mitral (valve) annulus calcification | CPT/HCPCS: 93306 ==

== ENCOUNTER 2024-06-07 11:38 | Outpatient (REF) | payer OTHER, SELFPAY ==
[2024-06-07 12:08] LABS: MANUAL DIFF FLAG NO
[2024-06-07 12:30] LABS: Basophils Absolute Auto 0.1 X10*3/uL (0.0-0.2); Basophils Percent Auto 1.5 % (0-2); Eosinophils Absolute Auto 0.1 X10*3/uL (0.0-0.4); Eosinophils Percent Auto 1.7 % (0-4); Hematocrit 21.3 % (42.0-52.0); Imm Gran Abs Auto 0.05 X10*3/uL (0.00-0.03); Imm Gran Pct Auto 0.7 % (0.0-0.4); Lymphocytes Absolute Auto 0.7 X10*3/uL (1.2-4.9); Lymphocytes Percent Auto 9.7 % (20-40); Mean Corpuscular HGB Conc 27.2 g/dl (31.0-36.0); Mean Corpuscular Hemoglobin 22.2 pg (27.0-33.0); Mean Corpuscular Volume 81.6 fL (80.0-98.0); Monocytes Absolute Auto 0.8 X10*3/uL (0.1-1.2); Monocytes Percent Auto 11.1 % (2-11); Neutrophils Absolute Auto 5.4 x10*3/uL (2.0-8.3); Neutrophils Percent Auto 75.3 % (45-73); Platelet Count 402 X10*3/uL (160-400); Red Blood Count 2.61 X10*6/uL (4.60-5.80); Red Cell Distribution Width 19.5 % (11.0-16.0); White Blood Count 7.2 X10*3/uL (4.8-10.8)
[2024-06-07 12:34] LABS: Hemoglobin 5.8 g/dl (14.0-18.0)
[2024-06-07 13:14] LABS: Iron 117 mcg/dL (45-160); Percent Iron Saturation 31 % (15-50); Total Iron Binding Capacity 376 mcg/dL (228-428); Unsaturated Iron Binding 259 ug/dL
[2024-06-07 13:29] LABS: Ferritin 5 ng/mL (20-250)
--- OUTSIDE RECORDS SUMMARY | 2024-06-07 13:29 | XMS_ITS | Continuity of Care Document ---
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 Name Role Phone Kiara Latham Primary Care Physician [phone] Encounter [facility] [id number] Date(s): 05/23/24 - 05/27/[address] [id number] Discharge Disposition: A-D/C Home Attending Physician: Angella Newman MD Admitting Physician: Mike Dboson MD Referring Physician: Not on Staff, Referring MD Encounter Type: Disch IP Allergies, Adverse Reactions, Alerts Substance Criticality Severity Reaction Reaction Severity Status naproxen GI Ulcers Active cortisone eye pressure Active penicillin uknown Active NSAIDs GI Ulcers Active Medications Artificial Tears Plus ointment, Eyes, Both, Daily at bedtime, 0 Refills, Maintenance, 09/30/21 10:48:00 AM EDT, Partial fill upon patient request if the prescription is for a schedule II opioid drug. Start Date: 09/30/21 Status: Ordered Repeat number: 1 aspirin 81 mg oral tablet 1 tablet = 81 mg, By Mouth, Daily, # 30 tablet, 0 Refills, Maintenance, 02/24/19 3:26:58 PM EDT, Tablet Start Date: 02/24/19 Status: Ordered Quantity: 30.0 Unit: tablet Repeat number: 1 Eliquis 5 mg oral tablet 1 tablet = 5 mg, By Mouth, 2 times a day, # 60 tablet, 5 Refills, Maintenance, 05/27/24 11:45:00 AMEST, Tablet, [facility], Partial fill upon patient request if the prescription is fora schedule II opioid drug. Start Date: 05/27/24 Status: Ordered Quantity: 60.0 Unit: tablet Repeat number: 6 ferrous sulfate 325 mg oral enteric coated tablet 325 mg, 1, tablet, By Mouth, Every other day, # 45 tablet, Refills 0, Tot. Refills 0, Maintenance, 05/27/24 11:46:00 AM EST, Route to Pharmacy Electronically, [facility], Partial fill upon patient request if the prescription is for a schedule II opioid drug. Start Date: 05/27/24 Stop Date: 08/25/24 Status: Ordered Quantity: 45.0 Unit: tablet Repeat number: 1 fluticasone 50 mcg/inh nasal spray 2 sprays, Nares, Both, 2 times a day, 0 Refills, Maintenance, 09/30/21 10:45:00 AM EDT, [place], Partial fill upon patient request if the prescription is for a schedule II opioid drug. Start Date: 09/30/21 Status: Ordered Repeat number: 1 latanoprost 0.005% ophthalmic solution 1 drops, Eyes, Both, Daily at bedtime, # 3 mL, 0 Refills, Maintenance, 02/24/19 3:40:10 PM EDT, Ophth Solution Start Date: 02/24/19 Status: Ordered Quantity: 3.0 Unit: mL Repeat number: 1 lisinopril 10 mg oral tablet 10 mg, 1, tablet, By Mouth, Daily in AM, # 30 tablet, Refills 0, Maintenance, 09/30/21 10:46:00 AM EDT, Partial fill upon patient request if the prescription is for a schedule II opioid drug. Start Date: 09/30/21 Status: Ordered Quantity: 30.0 Unit: tablet Repeat number: 1 metoprolol 25 mg oral tablet, extended release 25 mg, XL Tablet, By Mouth, Hold for: BP<90/60 or HR <60, 05/27/24 9:00:00 AM EST Start Date: 05/27/24 Stop Date: 05/27/24 Status: Completed Repeat number: 1 metoprolol 50 mg oral tablet 50 mg, 1, tablet, By Mouth, 2 times a day, # 60 tablet, Refills 0, Tot. Refills 0, Maintenance, 05/27/24 11:45:00 AM EST, Route to Pharmacy Electronically, [facility], Partial fill uponpatient request if the prescription is for a schedule II opioid drug. Start Date: 05/27/24 Status: Ordered Quantity: 60.0 Unit: tablet Repeat number: 1 Multivitamin 1 tablet, By Mouth, Daily, 0 Refills, Maintenance, 02/24/19 3:46:12 PM EDT Start Date: 02/24/19 Status: Ordered Repeat number: 1 omeprazole 20 mg oral delayed release tablet 1 tablet = 20 mg, By Mouth, Daily in AM, # 120 tablet, 0 Refills, Maintenance, 02/24/19 3:35:32 PM EDT, EC Tablet Start Date: 02/24/19 Status: Ordered Quantity: 120.0 Unit: tablet Repeat number: 1 Refresh - solution 1 drops, Eyes, Both, 2 times a day, PRN for dry eyes, # 15 mL, 0 Refills, Maintenance, 09/30/21 10:45:00 AM EDT, [place], Partial fill upon patient request if the prescription is for a schedule II opioid drug. Start Date: 09/30/21 Status: Ordered Quantity: 15.0 Unit: mL Repeat number: 1 rosuvastatin 40 mg oral capsule 1 capsule = 40 mg, By Mouth, Daily at bedtime, # 90 capsule, 0 Refills, Maintenance, 09/30/21 10:47:00 AM EDT, Caps[place], Partial fill upon patient request if the prescription is for a schedule II opioiddrug. Start Date: 09/30/21 Status: Ordered Quantity: 90.0 Unit: capsule Repeat number: 1 Tamsulosin 0.4 mg, By Mouth, Daily at supper, Refills 0, Maintenance, 02/24/19 3:35:55 PM EDT Start Date: 02/24/19 Status: Ordered Repeat number: 1 timolol maleate 0.25% ophthalmic solution 1 drops, Eyes, Both, Daily in AM, # 60 each, 0 Refills, Maintenance, 09/30/21 10:48:00 AM EDT, Solution, Partial fill upon patient request if the prescription is for a schedule II opioid drug. Start Date: 09/30/21 Status: Ordered Quantity: 60.0 Unit: each Repeat number: 1 Tylenol 325 mg oral capsule 2 capsule = 650 mg, By Mouth, 2 times a day, # 20 capsule, 0 Refills, Maintenance, 02/24/19 3:44:39 PM EDT, Capsule Start Date: 02/24/19 Status: Ordered Quantity: 20.0 Unit: capsule Repeat number: 1 Problem List Condition Confirmation Course Effective Dates Status Health St atus Informant Obese class I Confirmed Active Procedures Procedure Date Related Diagnosis Body Site Status Hernia 1 Completed Stented coronary artery C ompleted 1x2 Results Radiology Reports * Exam Date Time Procedure Performing Provider Status 05/23/24 11:53 AM Chest 2 Views Frontal and Lat Eusebi o , Radha; Auth (Verified) Notes: (Chest 2 Views Frontal and Lat) Reason For Exam: Shortness of Breath RESULT: Chest 2 Views Frontal and Lat Chest 2 Views Frontal and Lat Hx of Present Illness: SOB; Reason: Shortness of Breath; no history of malignancy. Clinical Question(s): Pneumonia COMPARISON: None. FINDINGS: LINES AND TUBES: None. LUNGS AND PLEURA: Clear lungs. Normal pulmonary vascularity. No pleural effusion. No pneumothorax. HEART, MEDIASTINUM AND MELANIE: Heart is normal in size. Normal mediastinal and hilar contour. BONES AND SOFT TISSUES: Sclerotic focus in the body of the right scapula. No other focal lytic or blastic lesion. IMPRESSION: No acute abnormality. Sclerotic focus in the body of the right scapula. As there is no known history of malignancy, this finding most likely represents a benign finding. However, short interval imaging follow-up is recommended to assess stability. WSN: [id number] Ordering Physician: Andrea Vásquez Dictated By: Griffin Hernandez MD Dictated Date/Time: 05/23/24 12:00 p Reviewed By: Griffin Hernandez MD Signed By: Griffin Hernandez MD Signed Date/Time: 05/23/24 12:00 pm Transcribed By: CRESENCIO Transcribed Date/Time: 05/23/24 11:55 am Vital Signs Most recent to oldest [Reference Range]: 1 2 3 Weight 86.8 kg (05/27/24 5:44 AM) 88.5 kg (05/26/24 7:14 AM) 88.5 kg (05/25/24 4:00 PM) Oxygen Saturation [94-100 %] 97 % (05/27/24 10:39 AM) 98 % (05/27/24 5:44 AM) 98 % (05/26/24 9:26 PM) Pulse Rate [55-90 bpm] 70 bpm (05/27/24 10:39 AM) 61 bpm (05/27/24 8:36 AM) 58 bpm (05/27/24 5:44 AM) Blood Pressure [90-138/55-84 mm Hg] 123/46mm Hg (05/27/24 10:39 AM) 134/71mm Hg (05/27/24 8:36 AM) 109/58mm Hg (05/27/24 5:44 AM) Respiratory Rate [16-30 br/min] 16 br/min (05/27/24 10:39 AM) 16 br/min (05/27/24 5:44 AM) 16 br/min (05/26/24 9:26 PM) Temperature [96.8-100.4 DegF] 97.7 DegF (05/27/24 10:39 AM) 97.8 DegF (05/27/24 5:44 AM) 97.8 DegF (05/26/24 9:26 PM) Liters per Minute 3 L/min (05/26/24 9:53 AM) 3 L/min (05/26/24 9:47 AM) 3 L/min (05/26/24 9:39 AM) Mode of Delivery (Oxygen) Room air (05/27/24 10:39 AM) Room air (05/27/24 5:44 AM) Room air (05/26/24 9:26 PM) Blood pressure sites Arm, right (05/27/24 10:39 AM) Arm, left (05/27/24 5:44 AM) Arm, left (05/26/24 9:26 PM) Temperature Route Oral (05/27/24 10:39 AM) Oral (05/27/24 5:44 AM) Oral (05/26/24 9:26 PM) Weight Obtained Via Bed scale (05/25/24 5:14 AM) Social History Social History Type Response Smoking Status Former smoker, quit more than 30 days ago; Other: quit 2001; entered on: 05/23/24 Sex Sex Representation Male (finding) Clinical Note * Event Display: GG EGD Please click on pdf link to open report Admission evaluation note * Mike Dobson MD: MODIFY Mike Dobson MD: MODIFY, MODIFY Event Display: Admission Note Authored Date: Patient: ??CHAR TATE ? Age:??88 Years?Sex:??Male?:??1935?? Chief Complaint/Reason for Consultation pt presenting to the ED from home with SOB on exertion x3 weeks with associated angina. recent workup at [facility] which showed no acute issues. endorsing epigastric pressure, weakness and fatigue. History of Present Illness 88-year-old male with past medical history of coronary artery disease status post stents, hypertension, hyperlipidemia,??gastric ulcer who presents to the emergency department??with chest pain. ?? Patient reports that for the past 3 to 4 weeks??he has been going downhill. ?? He says for being 88 he is very active and walks and swims all the time??but has felt more fatigued and noticed that hehas been taking more naps during the day.?? His primary care physician at the [facility] felt thathe should see a television news producer the last Thursday??cardiology due to EKG??and ordered an echocardiogram??but he has not received the results yet. ?? He reports that he feels weaker without doing anything. ??Describes his chest pain as a sack of potatoes??on my chest ??but says this sensation has improved since coming to the hospital.?? Denies the chest pain radiating anywhere, denies any sharp stabbing??sensation or positional??relief.?? This morning 05/23 patient??went to the bathroom and??was very short of breath so his , Anaya, felt that he should go??to the emergency department.?? He does report having black tarry stools for some time but feels that it was because he was on iron??pills however that made him constipated so he no longer takes those. ??He has been on iron pills for??1 to 2 years.?? Denies any??nausea, vomiting, niya turia. ?? Upon presentation to the emergency department??patient was afebrile, heart rate 83, blood pressure 151/51, 100% on room air.?? Initial lab work concerning for hemoglobin 4.2, high-sensitivity troponin 18 and repeat flat at 18.?? D-dimer 0.31.?? Chest x-ray with no acute abnormalities.?? EKG shows normal sinus rhythm with right bundle branch block. ?? Gastroenterology evaluated patient in the emergency department and recommend n.p.o. after midnight plan for EGD tomorrow.?? Recommend keeping hemoglobin greater than 7. ?? When I saw patient at bedside on the floor he reports feeling better and denying any chest pressure or other acute complaints at this time.?? He understands that he will be going for EGD in the morning. Review of Systems GEN:?Denies any issues with sleep, fatigue or changes in wt, fever, chills. HEENT: Denies runny nose, dry mouth,?sore throat or changes to his vision. CV: Denies CP, palpitations, edema or orthopnea. PULM: Denies any SOB, wheezing, cough. GI: Denies any abdominal pain, N/V/D, heartburn.?Denies any changes to bowel habits or stool character.?? : Denies dysuria, polyuria, or hematuria. EXT: Denies any joint pain, stiffness, numbness or tingling. +??leg cramps for past several weeks PSYCH: Denies any depression or anxiety. Neurologic:??No headache, dizziness, syncope, unilateral weakness, ataxia, numbness or tingling in the extremities. ?? All other systems reviewed and otherwise negative unless stated in HPI. Objective ?? Vital Signs?? Temperature: 97.7 DegF (05/23/24 17:35:00) Temperature Route: Oral (05/23/24 17:35:00) Pulse Rate: 77 bpm (05/23/24 18:38:00) Respiratory Rate: 18 br/min (05/23/24 18:38:00) Systolic Blood Pressure:??158 mm Hg??High (05/23/24 18:38:00) Diastolic Blood Pressure: 59 mm Hg (05/23/24 18:38:00) Blood pressure sites: Arm, left (05/23/24 18:38:00) Mean Arterial Pressure: 92 mm Hg (05/23/24 18:38:00) Pulse Pressure: 99 mm Hg (05/23/24 18:38:00) Oxygen Saturation: 100 % (05/23/24 18:38:00) Liters per Minute: 2 L/min (05/23/24 18:38:00) Mode of Delivery (Oxygen): Nasal cannula (05/23/24 18:38:00) Early Warning Score: 2 (05/23/24 18:39:45) ? Physical Exam General: No acute distress, resting in bed HEENT: EOMI, mucous membranes moist CV: RRR S1 S2 present. No murmurs, gallops, rubs appreciated. No JVD. No edema. Respiratory: All malik clear to auscultation bilaterally. No wheezes, rales, rhonchi appreciated Abdominal: Soft, nontender. No rebound tenderness. Bowel sounds noted all four quadrants. : No suprapubic tenderness. Neuro: A&OX3. Moving upper and lower extremities. No gross neurological deficits, cranial nerves intact on my exam Psych: Affect appropriate Skin:??Appears pale, no acute lesions, wounds, rashes. Assessment/Plan Diagnoses Acute upper GI bleed ??(K92.2) BPH (benign prostatic hyperplasia) ??(N40.0) Hyperlipidemia ??(E78.5) Hypertension ??(I10) ?? Assessment:??88-year-old male with past medical history of coronary artery disease status post stents, hypertension, hyperlipidemia, BPH, gastric ulcer who presents to the emergency department??with chest pain. Found to??be severely anemic and now s/p 1u PRBC pending further transfusions and EGD.? Acute upper GI bleed (K92.2): Acute??Symptomatic Anemia Likely gastric ulcers as patient does have a history of this. Hemoglobin 4.2 in emergency department, has remained hemodynamically stable evaluated by GI in the ED??plan for EGD tomorrow Plan: ? Transfused 2 units of packed red blood cells, will repeat H&H after transfusion ?Hemoglobin goal greater than 7 ??? Pantoprazole 40 mg IV twice daily ??? EGD tomorrow ??? Holding aspirin??and lisinopril ?? BPH (benign prostatic hyperplasia) (N40.0):??Continue home tamsulosin Hyperlipidemia (E78.5):??Continue home atorvastatin Hypertension (I10):??Continue home metoprolol, holding home lisinopril??due to anesthesia being??used during??EGD tomorrow Scapula lesion: Sclerotic focus in the body of the right scapula. As there is no known history of malignancy, this finding most likely represents a benign finding. However, short interval imaging follow-up is recommended to assess stability. plan: - f/u with PCP for further imaging ?? VTE Prophylaxis:??pneumatic compression devices, chemical contraindicated. ?VTE Prophylaxis Assessment:??VTE Prophylaxis Ordered Discharge Planning:??Likely 2 to 3 days Ongoing Medical Necessity:??Pending EGD Code Status:??Full code confirmed with patient ?Order Code Status:??Code Status Ordered ?? HCP/Family Update: Anaya updated on the phone. Sepideh??is patient's HCP at??[phone] but??her phone went to [employer] when I called. ?? Patient seen and discussed with Dr. Olya Chin, DO Internal Medicine PGY2 ?? The patient seen and examined on this date. The case reviewed in detail with admitting resident on this date. I reviewed and agree as above. Dvt, high risk. Mike Dobson MD Histories Allergies Allergies ?(Active and Proposed Allergies Only) naproxen? (Severity: Unknown severity, Onset: Unknown) ?Reactions: GI Ulcers NSAIDs? (Severity: Unknown severity, Onset: Unknown) ?Reactions: GI Ulcers cortisone? (Severity: Unknown severity, Onset: Unknown) ?Reactions: eye pressure penicillin? (Severity: Unknown severity, Onset: Unknown) ?Reactions: uknown ? Past Medical History/Problem List Active Problems(1) Obese class I ? Past Surgical History Hernia Stented coronary artery ? Social History Alcohol Details:??Frequency: 1-2 times per month. Employment/School Details:??Status: Retired. Exercise Details:??Self assessment: Fair condition. ??Exercise type: Swimming, Walking. Home/Environment Details:??Living situation: Home/Independent. ??Lives with: Spouse. Substance Abuse Details:??Use: Never. Tobacco Details:??Use: Former smoker, quit more than 30 days ago. ??Other: quit 2002. ? Family History Mother: TIA Father: Parkinson disease ? Medications Home Medications Acetaminophen (Tylenol 325 mg oral capsule)?2?capsule?650?Milligram?By Mouth?2 times a day Aspirin (aspirin 81 mg oral tablet)?1?tab(s)?81?Milligram?By Mouth?Daily Fluticasone Nasal (fluticasone 50 mcg/inh nasal spray)?2?spray(s)?Nares, Both?2 times aday Latanoprost Ophthalmic (latanoprost 0.005% ophthalmic solution)?1?Drops?Eye, Right?Daily?Eyes, Both?Daily at bedtime Lisinopril (lisinopril 10 mg oral tablet)?10?Milligram?1?tablet?By Mouth?Daily Kennedy Loratadine (loratadine 10 mg oral tablet)?10?Milligram?1?tablet?By Mouth?Daily Kennedy Metoprolol (metoprolol 50 mg oral tablet)?50?Milligram?1?tablet?By Mouth?2 times a day Multivitamin?1?tab(s)?By Mouth?Daily Ocular Lubricant (Refresh - solution)?1?Drops?Eyes, Both?2 times a day?as needed?for dry eyes Ocular Lubricant (Artificial Tears Plus)?ointment?Eyes, Both?Daily at bedtime Omeprazole (omeprazole 20 mg oral delayed release tablet)?1?tab(s)?20?Milligram?By Mouth?Daily?Daily in AM Rosuvastatin (rosuvastatin 40 mg oral capsule)?1?capsule?40?Milligram?By Mouth?Daily at bedtime Tamsulosin?0.4?Milligram?By Mouth?Daily Timolol Ophthalmic (timolol maleate 0.25% ophthalmic solution)?1?Drops?Eyes, Both?Dailyin AM ? Inpatient Medications Medications (18) Active SCHEDULED: (10) Latanoprost 0.005% Ophthalmic Solution (latanoprost 0.005% ophthalmic solution) ??1 drops, Eyes, Both, Daily at bedtime Loratadine 10 mg Tablet (loratadine 10 mg oral tablet) ??10 mg, By Mouth, Daily in AM Metoprolol 50 mg Tablet (metoprolol 50 mg oral tablet) ??50 mg, By Mouth, 2 times a day Multivitamin Tablet ??1 tablet, By Mouth, Daily NaCl 0.9% Flush 3ml (NaCL 0.9% Flush) ??3 mL, IV Push, Every 8 hours Pantoprazole 40 mg Inj (Pantoprazole Inj) ??40 mg, IV Push Slowly, Every 12 hours Polyvinyl Alcohol 1.4% Opthalmic Solution/Artificial Tears (Artificial Tears1.4%) ??1 drops, Eyes, Both, Daily at bedtime Rosuvastatin 20 mg Tablet (rosuvastatin 40 mg oral tablet) ??40 mg, By Mouth, Daily at bedtime Tamsulosin 0.4 mg Capsule (tamsulosin 0.4 mg oral capsule) ??0.4 mg, By Mouth, Daily Timolol 0.25% Ophthalmic Solution (Timolol 0.25% Ophth) ??1 drops, Eyes, Both, Daily in AM CONTINUOUS: (0) PRN: (8) Acetaminophen 325 mg Tablet (Acetaminophen Tablet) ??650 mg, By Mouth, Every 4 hours Dextromethorphan-Guaifenesin 20 mg-200 mg/10 mL Liqu UD (Robitussin DM Liquid) ??10 mL, By Mouth, Every 4 hours Docusate Sodium 100 mg Capsule (Docusate Sodium Capsule) ??100 mg 1 capsule, By Mouth, 2 times a day Melatonin 3 mg Tablet (Melatonin Tablet) ??3 mg, By Mouth, Daily at bedtime NaCl 0.9% Flush 3ml (NaCL 0.9% Flush) ??3 mL, IV Push, Every 8 hours Polyethylene Glycol 17 Gm Powder (MiraLax Powder) ??17 Gm 1 pack/packet, By Mouth, Daily Senna Tablet ??8.6 mg 1 tablet, By Mouth, 2 times a day Simethicone 80 mg Chewable Tablet (Simethicone Tablet) ??80 mg, Chew, 3 times a day ? Results Recent Labs BLOOD BANK Blood Type A Positive ()?? 05/23/2024 13:54 Antibody Screen Negative ()?? 05/23/2024 13:54 RBC Unit ID [id number] ()?? 05/23/2024 16:18 RBC Available XM ()?? 05/23/2024 16:18 ?? BLOOD COUNT & DIFF WBC 6.8 k/mm3 ()?? 05/23/2024 11:34 RBC 2.20 m/mm3 (Low)?? 05/23/2024 11:34 Hgb 4.2 Gm/dL (Critical)?? 05/23/2024 11:34 Hct 16.2 % (Critical)?? 05/23/2024 11:34 MCV 73.6 femtoliters (Low)?? 05/23/2024 11:34 MCH 19.1 pg (Low)?? 05/23/2024 11:34 MCHC 25.9 Gm/dL (Low)?? 05/23/2024 11:34 Platelet Count 311 k/mm3 ()?? 05/23/2024 11:34 RDW-SD 48.3 femtoliters (High)?? 05/23/2024 11:34 MPV 10.9 femtoliters ()?? 05/23/2024 11:34 Nucleated RBC (Automated) 0.9 #/100 WBC'S ()?? 05/23/2024 11:34 Abs. NRBC 0.1 k/mm3 ()?? 05/23/2024 11:34 Abs. Neut 5.4 k/mm3 ()?? 05/23/2024 11:34 Abs. Lymph 0.5 k/mm3 (Low)?? 05/23/2024 11:34 Abs. Gonzales 0.8 k/mm3 ()?? 05/23/2024 11:34 Abs. Eo 0.1 k/mm3 ()?? 05/23/2024 11:34 Abs. Baso 0.0 k/mm3 ()?? 05/23/2024 11:34 Neut % 78.6 % (High)?? 05/23/2024 11:34 Lymph % 7.5 % (Low)?? 05/23/2024 11:34 Gonzales % 11.5 % (High)?? 05/23/2024 11:34 Eos % 0.9 % ()?? 05/23/2024 11:34 Baso % 0.6 % ()?? 05/23/2024 11:34 Imm Gran 0.9 % ()?? 05/23/2024 11:34 Abs. Imm Gran 0.1 k/mm3 ()?? 05/23/2024 11:34 ?? CARDIAC Nt-Probnp 388 pg/mL ()?? 05/23/2024 11:34 High Sensitivity Troponin (HSTnT) 18 ng/L ()?? 05/23/2024 14:02 ?? CHEM GENERAL Sodium 142 mmol/L ()?? 05/23/2024 11:34 Potassium 4.0 mmol/L ()?? 05/23/2024 11:34 Chloride 109 mmol/L (High)?? 05/23/2024 11:34 Bicarbonate Level 21 mmol/L (Low)?? 05/23/2024 11:34 Anion Gap 12 ()?? 05/23/2024 11:34 Glucose Level 102 mg/dL (High)?? 05/23/2024 11:34 BUN 20 mg/dL ()?? 05/23/2024 11:34 Creatinine-Blood 0.87 mg/dL ()?? 05/23/2024 11:34 Estimated GFR Creatinine 84 ML/MIN/1.73 M2 ()?? 05/23/2024 11:34 Calcium 9.1 mg/dL ()?? 05/23/2024 11:34 Protein, Total 6.0 Gm/dL (Low)?? 05/23/2024 11:34 Albumin 4.0 Gm/dL ()?? 05/23/2024 11:34 AG Ratio 2.0 ()?? 05/23/2024 11:34 Alkaline Phosphatase 42 units/L ()?? 05/23/2024 11:34 Lipase 27 units/L ()?? 05/23/2024 11:34 AST (SGOT) 11 units/L ()?? 05/23/2024 11:34 ALT (SGPT) 9 units/L ()?? 05/23/2024 11:34 Bilirubin, Total 0.5 mg/dL ()?? 05/23/2024 11:34 ?? COAG D-Dimer 0.31 mg/L FEU ()?? 05/23/2024 11:34 ? EKG study * Event Display: ECG 12-Lead Authored Date: Please click on pdf link to open report * Event Display: ECG 12-Lead Authored Date: Ventricular Rate: 118 BPM Atrial Rate: 197 BPM QRS Duration: 142 ms Q-T Interval: 370 ms QTC Calculation(Bazett): 518 ms R [place]: -7 degrees T [place]: 24 degrees Atrial fibrillation with rapid ventricular response Right bundle branch block Abnormal ECG When compared with ECG of 23-May-2024 12:21, Atrial fibrillation has replaced Sinus rhythm Vent. rate has increased by 46 bpm Confirmed by ARTURO HINTON MD ([id number]) on 05/27/2024 7:26:43 AM Artemas: ARTURO HINTON MD * Event Display: ECG 12-Lead Authored Date: Please click on pdf link to open report * Event Display: ECG 12-Lead Authored Date: Ventricular Rate: 72 BPM Atrial Rate: 72 BPM P-R Interval: 158 ms QRS Duration: 148 ms Q-T Interval: 450 ms QTC Calculation(Bazett): 492 ms P [place]: 64 degrees R [place]: 16 degrees T [place]: 43 degrees Normal sinus rhythm Right bundle branch block Abnormal ECG When compared with ECG of 24-Jun-2001 06:59, QRS duration has increased QT has lengthened Confirmed by KIARA AUSTIN MD ([id number]) on 05/23/2024 12:59:43 PM Artemas: KIARA AUSTIN MD Cardiology * Event Display: Cardiac Rhythm Strips Authored Date: Hospital Progress note * Ann Nieves RN: PERFORM, SIGN, VERIFY Event Display: Progress Note Hospital Authored Date: [id number] Patient: CHAR TATE Age: 88 years Sex: Male : 1935 Associated Diagnoses: None Author: Ann Nieves RN Findings Nursing Data Evaluation Patient recieved AOx4, VSS, on RA, NSR on tele, ambulates with walker to bathroom, continent of both. Patient discharged today, discharge instructions reviewed and paperwork signed, IV discontinued, patient left unit on wheelchair with transport and . Patient safety maintained. . Discharge Information Case Management Discharge Plan : Case Management Discharge Plan Data 05/27/2024 16:23 EST Discharge Level of Care at Discharge Home/Assisted/Foster Care * Pooja Byrd RN: PERFORM, SIGN, VERIFY Event Display: Progress Note Hospital Authored Date: [id number] Patient: CHAR TATE Age: 88 years Sex: Male : 1935 Associated Diagnoses: None Author: Pooja Byrd RN Findings Problem Related to Alteration in Fluid Electrolyte : Alteration in Fluid Electrolyte Func/new 05/27/2024 4:00 EST Alteration Fluid Electrolytes Related to Anemia Goals & Outcomes, Fluid/Electrolyte Pt will maintain adequate GI/ function appropriate for pt, Pt's fluid & RBC volume will normalize & be maintained, Pt's functional abilities will normalize, be maintained Interventions, Fluid Electrolyte Assess/monitor any signs of bleeding, Assess/monitor effects of blood product administration, Assess/monitor for s/s of shock, Assess/monitor lab values affected by anemia BH Goals/Interventions,Fluid Electrolyte Yes Fluid Electrolyte, Problem Start 05/27/2024 4:39 Reviewed plan with, Fluid Electrolyte Patient Patient Progression, Fluid Electrolyte Pt progressing according to plan . Narrative/Incidental pt a&ox4, vital signs stable overnight, Hgb this morning (05/27) resulted as 7.4. greater than goal of 7.0. patient denied pain overnight. all needs met, call ho within reach. bed in lowest, locked position. patient refusing alarms. educated on fall risk safety. Pt states understanding. see [facility] for further documentation.. * Marty SHEARER, Angela: PERFORM, MODIFY Event Display: Progress Note Hospital Authored Date: Patient: ??CHAR TATE ? Age:??88 Years?Sex:??Male?:??1935?? Subjective Overnight: No acute event patient; remained stable This AM:??Patient seen after his colonoscopy. ??He feels improved. ??He does not have any complaints and he??appreciates the update??particularly??when I informed him of his diagnosis of A-fib.?? He was able to tell me that he had 2 TIAs prior and he??is very worried of??having a stroke. Review of Systems Full ROS has been performed and is otherwise negative asides form what has been mentioned in HPI Objective Vital Signs?? Temperature: 97.4 DegF (05/26/24 11:09:00) Temperature Route: Oral (05/26/24 11:09:00) Normothermic Measures: Additional blanket (05/25/24 17:15:00) Pulse Rate: 67 bpm (05/26/24 14:18:00) Heart Rate Monitored: 63 bpm (05/26/24 10:08:00) Respiratory Rate: 16 br/min (05/26/24 11:09:00) Systolic Blood Pressure:??147 mm Hg??High (05/26/24 14:18:00) Diastolic Blood Pressure:??47 mm Hg??Low (05/26/24 14:18:00) Blood pressure sites: Arm, left (05/26/24 11:09:00) Mean Arterial Pressure: 74 mm Hg (05/26/24 11:09:00) Pulse Pressure: 73 mm Hg (05/26/24 11:09:00) Oxygen Saturation: 100 % (05/26/24 11:09:00) Liters per Minute: 3 L/min (05/26/24 09:53:00) Mode of Delivery (Oxygen): Room air (05/26/24 11:09:00) Early Warning Score: 2 (05/26/24 14:25:20) ? Intake/Output? 05/23 17:16 05/26 07:00 05/25 07:00 05/24 07:00 05/23 07:00 ?? 05/26 16:59 05/26 16:59 05/26 06:59 05/25 06:59 05/24 06:59 Intake ? 1453 ?0 ?0 ?533 ?920 Output ? 1750 ?0 ?600 ?450 ?700 Net Total ? -297 ?0 ? -600 ? 83 ?220 ? Urine Count ?6 ?0 ?5 ?1 ?0 ? Physical Exam General: Patient in no acute pain or distress?? HEENT: normocephalic, atraumatic Respiratory: bilateral equal air entry, clear to auscultation with no wheezes or crackles. CVS: regular rate and rhythm, S1 and S2 present, no murmurs. No JVD.?? Abdomen: soft, non tender, non distended, bowel sounds present. Extremities: No edema noted bilaterally. Pulses intact. Neuro: alert and oriented x3. Moving all extremities spontaneously. Following simple commands. Results Recent Labs BLOOD BANK RBC Unit ID [id number] ()?? 05/24/2024 11:30 RBC Available PT ()?? 05/24/2024 11:30 ?? BLOOD COUNT & DIFF WBC 9.1 k/mm3 ()?? 05/26/2024 00:43 RBC 3.89 m/mm3 (Low)?? 05/26/2024 00:43 Hgb 7.7 Gm/dL (Low)?? 05/26/2024 15:36 Hct 26.0 % (Low)?? 05/26/2024 15:36 MCV 79.4 femtoliters (Low)?? 05/26/2024 00:43 MCH 23.1 pg (Low)?? 05/26/2024 00:43 MCHC 29.1 Gm/dL (Low)?? 05/26/2024 00:43 Platelet Count 329 k/mm3 ()?? 05/26/2024 00:43 RDW-SD 53.4 femtoliters (High)?? 05/26/2024 00:43 MPV 11.5 femtoliters ()?? 05/26/2024 00:43 Nucleated RBC (Automated) 0.4 #/100 WBC'S ()?? 05/26/2024 00:43 Abs. NRBC 0.0 k/mm3 ()?? 05/26/2024 00:43 ?? CHEM GENERAL Sodium 140 mmol/L ()?? 05/26/2024 00:45 Potassium 3.9 mmol/L ()?? 05/26/2024 00:45 Chloride 106 mmol/L ()?? 05/26/2024 00:45 Bicarbonate Level 22 mmol/L ()?? 05/26/2024 00:45 Anion Gap 12 ()?? 05/26/2024 00:45 Glucose Level 154 mg/dL (High)?? 05/26/2024 00:45 BUN 12 mg/dL ()?? 05/26/2024 00:45 Creatinine-Blood 0.88 mg/dL ()?? 05/26/2024 00:45 Estimated GFR Creatinine 83 ML/MIN/1.73 M2 ()?? 05/26/2024 00:45 Calcium 8.8 mg/dL ()?? 05/26/2024 00:45 Phosphorus 2.4 mg/dL (Low)?? 05/26/2024 00:45 Magnesium 2.3 mg/dL ()?? 05/26/2024 00:45 ? Assessment/Plan 88-year-old male with past medical history of coronary artery disease status post stents, hypertension, hyperlipidemia,??gastric ulcer who presents to the emergency department??with ROCK and??angina??found to be??severely anemic??admitted for management of symptomatic anemia??with concern for upper GI bleed??secondary to gastric ulcer seen by GI s/p EGD on 05/25 which showed no gastric ulcers and??1??small??angiectasia in in his stomach that not explain patient's bleed. ??Patient received??3 blood transfusions??during this admission. 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 ??His hemoglobin currently remained stable. ??Course complicated byA-fib with RVR??and patient was started on??metoprolol. ??We will monitor patient's hemoglobin overnight??and determine??safety to initiate??anticoagulation??in discussion with GI team??n??pending their recommendations.? 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 ?? Plan: -trend H&H -Continue IV PPI -Will hold off patient's lisinopril but??consider continuation of aspirin tomorrow -Follow-up H&H 7 PM??transfuse for hemoglobin??less than 7 ?? New onset A-fib with RVR Patient with A-fib??with RVR??on 05/26 AM on telemetry Reports prior history of 2 TIAs??and reports never having a Holter monitor done??or being diagnosedwith A-fib before He received 500 cc IV fluids as well as??25??mg of metoprolol titrate after which she converted [id number] score of 3 Has bled score of??2 moderate risk for bleeding We will discuss risk and benefit of??anticoagulation??with GI team ?? Plan: -Metoprolol 25 XL started -Patient needs to be on Eliquis??for stroke prevention but??has moderate risk??for bleeding we willdiscuss risk versus benefit - Patient is established with outpatient doctor Alvaro cardiology but has no prior hx of afib ? Chronic Stable Medical Conditions: ?? - BETINA:??Home PAP ordered - Restless leg syndrome:??Patient uses ice pack, ordered - BPH (benign prostatic hyperplasia) (N40.0):??Continue home tamsulosin - Hyperlipidemia (E78.5):??Continue home atorvastatin - Hypertension (I10):??Continue home metoprolol, holding home lisinopril?? - CAD: no concern for ACS during this visit , F/u with outpatient television news producer Dr John. patient scheduled for stress test on 05/26, might need ot be rescheduled - Scapula lesion: Sclerotic focus in the body of the right scapula. As there is no known history of malignancy, this finding most likely represents a benign finding. However, short interval imaging follow-up is recommended to assess stability. plan: - f/u with PCP for further imaging ?? Quality Measures?? CODE Status:??Full code DVT prophylaxis: PCB Diet: Cardiac diet, n.p.o. after midnight HCP:??Daughter Sepideh phone #[phone]??but patient would like??his Anaya??phone #[phone]??to be updated??first Anaya updated over the phone??today ?? This case has been??reviewed and discussed with ??Paty Ferguson MD Internal Medicine PGY-3 Pager: [phone] ?? Parts of this note were accomplished using [employer] software. Despite efforts at performing a carefuland accurate dictation, this program is prone to speech recognition errors which may result in inaccurate documentation. If clinical questions should arise, please do not hesitate to contact me. ? Consult note * Sabino SHEARER, Jackson Mendez: MODIFY, PERFORM Event Display: Consultation Note Authored Date: [id number] Patient: ??CHAR TATE ? Age:??88 Years?Sex:??Male?:??1935?? Referrring Provider Andrea Vásquez, DO Chief Complaint Chest pain, SOB Reason for Consultation UGIB History of Present Illness 88-year-old man with history of CAD s/p remote stent on ASA alone, HTN, HLD, and chronic anemia on iron tablets??who we are asked to see for UGI bleed. ?? Patient presented earlier today with chest pain and SOB. He also reports chronically black stools on iron tablets. No hematochezia, hematemesis, nausea, vomiting or abdominal pain. His last EGD and colonoscopy were a few years ago at an outside hospital and unremarkable. He reports prior EGDs that showed ulcers. He is on omeprazole 20 mg daily. He denies NSAID or heavy alcohol use.??No family history of GI tract cancers.? Vital signs stable. No prior labs. Hgb 4.2. MCV 74. Plt 311. BUN 20. Cr 0.87. LFTs normal. HSTnT??18. EKG non ischemic, RBBB. No abd imaging obtained. ?? Review of Systems ROS per HPI Physical Exam Vitals & Measurements T:??97.4?F?? HR:??83??(Peripheral)?? RR:??22?? BP:??151/51?? SpO2:??100%?? General:??No acute distress. Well developed HEENT:??Moist mucus membranes. Anicteric sclera Respiratory:??Speaking comfortably. Not dyspneic Cardiovascular:??Normal rate, regular rhythm, no murmurs?? GI/Abdomen:??Normal active bowel sounds, soft, non-tender, non-distended Extremities:??No edema. No clubbing or cyanosis. Skin:??No jaundice. No rash Neurologic:??Alert & Oriented. Moves all extremities.?? Psychiatric:??Mood and affect appropriate Assessment/Plan Assessment:??88-year-old man with history of CAD s/p remote stent on ASA alone, HTN, HLD, and chronic anemia on iron tablets??who presents chest pain and SOB and is found with hgb 4.2 with concern for demand induced chest pain. GI is consulted for melena.? Differential includes??peptic ulcer disease bleed given reported prior history of peptic ulcer disease. Differential also includes??esophagitis/gastritis/duodenitis, AVM, Dieulafoy,??and neoplasm. Anne kee's hemoglobin needs to be optimized above 7 prior to endoscopy. No ongoing overt bleeding, and he is hemodynamically stable. ?? Recommendations: -EGD??tomorrow -Diet as tolerated, NPO after MN -IV pantoprazole 40 mg BID -Monitor H&H; keep hgb above 7 -Monitor for hemodynamic instability ?? Patient discussed with??attending physician??Dr. Blancas ?? Jackson Gallo MD?? Gastroenterology Fellow - PGY 6 ?? Problem List/Past Medical History Ongoing Obese class I Procedure/Surgical History prior EGD and colonoscopy Medications Inpatient Protonix Inj, 40 mg, IV Push Slowly, Once Home Artificial Tears Plus, ointment, Eyes, Both, Daily at bedtime aspirin 81 mg oral tablet, 81 mg= 1 tablet, By Mouth, Daily fluticasone 50 mcg/inh nasal spray, 2 sprays, Nares, Both, 2 times a day latanoprost 0.005% ophthalmic solution, 1 drops, Eyes, Both, Daily at bedtime lisinopril 10 mg oral tablet, 10 mg= 1 tablet, By Mouth, Daily in AM loratadine 10 mg oral tablet, 10 mg= 1 tablet, By Mouth, Daily in AM metoprolol 50 mg oral tablet, 50 mg= 1 tablet, By Mouth, 2 times a day Misc Rx Multivitamin, 1 tablet, By Mouth, Daily omeprazole 20 mg oral delayed release tablet, 20 mg= 1 tablet, By Mouth, Daily in AM Refresh - solution, 1 drops, Eyes, Both, 2 times a day, PRN rosuvastatin 40 mg oral capsule, 40 mg= 1 capsule, By Mouth, Daily at bedtime Tamsulosin, 0.4 mg, By Mouth, Daily at supper timolol maleate 0.25% ophthalmic solution, 1 drops, Eyes, Both, Daily in AM Tylenol 325 mg oral capsule, 650 mg= 2 capsule, By Mouth, 2 times a day Allergies NSAIDs??(GI Ulcers) cortisone??(eye pressure) naproxen??(GI Ulcers) penicillin??(uknown) Social History denies heavy alcohol use Family History denies FHx of gi cancer Lab Results Test Name Test Result Date/Time WBC 6.8 k/mm3 05/23/2024 11:34 EST Hgb 4.2 Gm/dL 05/23/2024 11:34 EST Platelet Count 311 k/mm3 05/23/2024 11:34 EST Sodium 142 mmol/L 05/23/2024 11:34 EST Potassium 4.0 mmol/L 05/23/2024 11:34 EST Glucose Level 102 mg/dL 05/23/2024 11:34 EST BUN 20 mg/dL 05/23/2024 11:34 EST Creatinine-Blood 0.87 mg/dL 05/23/2024 11:34 EST Estimated GFR Creatinine 84 ML/MIN/1.73 M2 05/23/2024 11:34 EST Alkaline Phosphatase 42 units/L 05/23/2024 11:34 EST AST (SGOT) 11 units/L 05/23/2024 11:34 EST ALT (SGPT) 9 units/L 05/23/2024 11:34 EST * Gianni Blancas DO Tri: PERFORM Event Display: Consultation Note Authored Date: GI Attending Note: ?? The patient was seen, examined and discussed with the??fellow. I have personally reviewed all of the labs and imaging. Additionally, I personally created the assessment and plan of care on rounds anddelineated in the above note. Additional comments as below: ?? no additions ?? Please call with questions or concerns. Thank you for allowing me to participate in this patient's care. ?? Gianni Blancas DO [facility] [address], [address] [place] [address] Note * Ann Nieves RN: PERFORM Event Display: Discharge/Transfer Note Hospital Authored Date: [id number] Nursing Discharge Note Entered On: 05/27/2024 16:25 EST Performed On: 05/27/2024 17:05 EST by nAn Nieves RN Nursing Discharge Note 2 Discharge Time : 05/27/2024 17:05 EST Ann Nieves RN - 05/27/2024 17:17 EST Discharge Level of Care at Discharge : Home/Assisted/Foster Care Patient Left Unit Via : Wheelchair Patient Accompanied Off Unit with : Significant other DC Instructions Provided & Signed by Pt : Yes Patient Understands D/C Instructions : Yes Patient Instructions Discharge Signed : Yes Did Pt have Specialty Bed or Wound Vac : No Ann Nieves RN - 05/27/2024 16:23 EST * Marty SHEARER, Angela: PERFORM, MODIFY, MODIFY, MODIFY, MODIFY, MODIFY Event Display: Discharge/Transfer Note Hospital Authored Date: [id number] Patient: ??CHAR TATE ? Age:??88 Years?Sex:??Male?:??1935?? Patient Information Discharge Location: Primary Care Physician: Kiara Latham Admit Date/Time: 05/23/2024 17:16 Discharge Disposition Discharge Disposition: Home: No Services Discharge Diagnosis Chest pain ([id number]) Acute upper GI bleed (K92.2) Arteriovenous malformation (Q27.30) Acute blood loss anemia (D62) New onset atrial fibrillation (I48.91) Lesion of bone of shoulder (M89.9) ?? Hypertension (I10) Hyperlipidemia (E78.5) BPH (benign prostatic hyperplasia) (N40.0) Obstructive sleep apnea (G47.33) Restless leg syndrome (G25.81) Hyperlipidemia (E78.5) Coronary artery disease (I25.10) _ Discharge Medications Acetaminophen (Tylenol 325 mg oral capsule)?2?capsule?650?Milligram?By Mouth?2 times a day apixaban (Eliquis 5 mg oral tablet)?1?tab(s)?5?Milligram?By Mouth?2 times a day Aspirin (aspirin 81 mg oral tablet)?1?tab(s)?81?Milligram?By Mouth?Daily Ferrous Sulfate (ferrous sulfate 325 mg oral enteric coated tablet)?325?Milligram?1?tablet?By Mouth?Every other day?for 90?Days Fluticasone Nasal (fluticasone 50 mcg/inh nasal spray)?2?spray(s)?Nares, Both?2 times aday Latanoprost Ophthalmic (latanoprost 0.005% ophthalmic solution)?1?Drops?Eye, Right?Daily?Eyes, Both?Daily at bedtime Lisinopril (lisinopril 10 mg oral tablet)?10?Milligram?1?tablet?By Mouth?Daily Kennedy Metoprolol (metoprolol 50 mg oral tablet)?50?Milligram?1?tablet?By Mouth?2 times a day Multivitamin?1?tab(s)?By Mouth?Daily Ocular Lubricant (Refresh - solution)?1?Drops?Eyes, Both?2 times a day?as needed?for dry eyes Ocular Lubricant (Artificial Tears Plus)?ointment?Eyes, Both?Daily at bedtime Omeprazole (omeprazole 20 mg oral delayed release tablet)?1?tab(s)?20?Milligram?By Mouth?Daily?Daily in AM Rosuvastatin (rosuvastatin 40 mg oral capsule)?1?capsule?40?Milligram?By Mouth?Daily at bedtime Tamsulosin?0.4?Milligram?By Mouth?Daily Timolol Ophthalmic (timolol maleate 0.25% ophthalmic solution)?1?Drops?Eyes, Both?Dailyin AM ? Medications Started apixaban (Eliquis 5 mg oral tablet)?1?tab(s)?5?Milligram?By Mouth?2 times a day Ferrous Sulfate (ferrous sulfate 325 mg oral enteric coated tablet)?325?Milligram?1?tablet?By Mouth?Every other day?for 90?Days Medications Discontinued None Doses Changed None Allergies Allergies ?(Active and Proposed Allergies Only) naproxen? (Severity: Unknown severity, Onset: Unknown) ?Reactions: GI Ulcers NSAIDs? (Severity: Unknown severity, Onset: Unknown) ?Reactions: GI Ulcers cortisone? (Severity: Unknown severity, Onset: Unknown) ?Reactions: eye pressure penicillin? (Severity: Unknown severity, Onset: Unknown) ?Reactions: uknown ? PCP Follow-Up/Heads-Up F/U CBC in 3-5 days Hospital Course 88-year-old male with past medical history of coronary artery disease status post stents, hypertension, hyperlipidemia,??gastric ulcer who presents to the emergency department??with ROCK and??angina??found to be??severely anemic??admitted for management of symptomatic anemia??with concern for upper GI bleed??secondary to gastric ulcer seen by GI s/p EGD on 05/25 which showed no gastric ulcers and??1??small??angiectasia in in his stomach that not explain patient's bleed. ??Patient received??3 blood transfusions??during this admission. 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 ??His hemoglobin currently remained stable. ??Course complicated byA-fib with RVR??and patient was started on??metoprolol.?? It was later found out that patient takesmetoprolol 50 mg??twice daily??which was not??ordered??on admission probably because patient was GIbleeding. ??We resumed 25 XL which patient tolerated well and we will discharge him back on his home dose. ??Upon discussion with the GI team and subsequently shared decision making with the patient (Anaya serna??his and Rosina step daughter over the phone)??and we discussed her some benefit of stroke versus GI bleed??and??decision was made to start Eliquis to decrease patient's risk of s troke as patient??has??[id number] score of 3??but on the other hand he has a moderate risk of bleeding??with a has bled score of 2. ??Patient aware to follow-up closely with his PCP for repeat CBC within 3 to 5 days of his discharge. ??If there are concerns for recurrent or further GI bleeding??per GI it is worth getting CT enterography??as he might have AVMs in his small bowel.? 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 Upon discussion with the GI team and shared decision making with the patient decision was made to start Eliquis to decrease patient's risk of stroke as patient??has??[id number] score of 3??but on the other hand he has a moderate risk of bleeding??with a has bled score of 2. ??Patient aware to follow-up closely with his PCP for repeat CBC within 3 to 5 days of his discharge.? Recommendations -Repeat CBC within 3 to 5 days of discharge -Follow-up with??PCP -Ferrous sulfate prescribed for iron deficiency anemia ? New onset A-fib with RVR Patient with A-fib??with RVR??on 05/26 AM on telemetry Reports prior history of 2 TIAs??and reports never having a Holter monitor done??or being diagnosedwith A-fib before He received 500 cc IV fluids as well as??25??mg of metoprolol titrate after which she converted [id number] score of 3 Has bled score of??2 moderate risk for bleeding Upon discussion with the GI team and shared decision making with the patient decision was made to start Eliquis to decrease patient's risk of stroke as patient??has??[id number] score of 3??but on the other hand he has a moderate risk of bleeding??with a has bled score of 2. ??Patient aware to follow-up closely with his PCP for repeat CBC within 3 to 5 days of his discharge.? Patient takes metoprolol 50 mg??twice daily at home??we will discharge him on his home dose ?? Recommendations: -Metoprolol continue home dose -Start Eliquis 5 mg twice daily -Closely monitor hemoglobin 3 to 5 days after initiation of Eliquis. ??Particularly that the patient is??on aspirin??for secondary prevention. - Patient is established with outpatient doctor Alvaro cardiology but has no prior hx of afib??as per patient and his family. ??Patient aware to follow-up with Dr. John. ? Chronic Stable Medical Conditions: - BETINA:??Continue home CPAP - Restless leg syndrome:??Ferrous sulfate ordered - BPH (benign prostatic hyperplasia) (N40.0):??Continue home tamsulosin - Hyperlipidemia (E78.5):??Continue home atorvastatin - Hypertension (I10):??Continue home metoprolol, continue home lisinopril - CAD: no concern for ACS during this visit , F/u with outpatient television news producer Dr John. - Scapula lesion: Sclerotic focus in the body of the right scapula. As there is no known history of malignancy, this finding most likely represents a benign finding. However, short interval imaging follow-up is recommended to assess stability. plan: - f/u with PCP for further imaging ? Vital Signs?? Temperature: 97.7 DegF (05/27/24 10:39:00) Temperature Route: Oral (05/27/24 10:39:00) Pulse Rate: 70 bpm (05/27/24 10:39:00) Respiratory Rate: 16 br/min (05/27/24 10:39:00) Systolic Blood Pressure: 123 mm Hg (05/27/24 10:39:00) Diastolic Blood Pressure:??46 mm Hg??Low (05/27/24 10:39:00) Blood pressure sites: Arm, right (05/27/24 10:39:00) Mean Arterial Pressure: 72 mm Hg (05/27/24 10:39:00) Pulse Pressure: 77 mm Hg (05/27/24 10:39:00) Oxygen Saturation: 97 % (05/27/24 10:39:00) Mode of Delivery (Oxygen): Room air (05/27/24 10:39:00) Early Warning Score: 2 (05/27/24 10:40:04) ? . Physical Exam General: Patient in no acute pain or distress?? HEENT: normocephalic, atraumatic Respiratory: bilateral equal air entry, clear to auscultation with no wheezes or crackles. CVS: regular rate and rhythm, S1 and S2 present, no murmurs. No JVD.?? Abdomen: soft, non tender, non distended, bowel sounds present. Extremities: No edema noted bilaterally. Pulses intact. Neuro: alert and oriented x3. Moving all extremities spontaneously. Following simple commands. Surgical Procedures Gastroscopy (EGD) Diagnostic 05/25/2024 16:52 Colonoscopy Diagnostic 05/26/2024 08:31 Patient Education Titles [employer] Patient Education - Lower GI Endoscopy?? [employer] Patient Education - Atrial Fibrillation?? [employer] Patient Education - Lower Gastrointestinal (GI) Bleeding (Stable)?? [employer] Patient Education - Iron Supplements?? [employer] Patient Education - Apixaban?? [employer] Patient Education - Afib Guidelines Patient Discharge Instructions?? [employer] Patient Education - Metoprolol?? Follow-Up Appointments Added Follow Up ?Time Frame ?Comments Del DAUGHERTY , Kiara?3-5 day: call to discuss follow up visit?Please call your PCP office within 3 to 5 days of your discharge to schedule a follow-up appointment to monitor your blood levels. Patient Instructions You presented to our hospital with complaints of??weakness, shortness of breath, and??chest??pressure You are found to have very low blood levels??and required blood transfusions Because you are also complaining of dark stools??you were seen by our gastroenterology team??who recommended??an upper endoscopy You underwent upper endoscopy which showed??1 small??arteriovenous malformation??which did not explain??your bleed Eventually??you??underwent??a colonoscopy??which revealed 4??arteriovenous malformations which could be the cause of your bleed and they were cauterized?? Your hemoglobin currently remains stable During this hospitalization you were diagnosed with an abnormal heart rhythm called atrial fibrillation Please continue to take your metoprolol 50 mg??twice a day??per your home dose this will help control your heart rate??and follow-up with your television news producer Because of atrial fibrillation you are at increased risk of developing strokes and thus??you need to be on??an anticoagulant You will be started on??Eliquis 5 mg twice a day Because you recently had??a gastrointestinal bleed you are at a moderate risk??of developing??another gastrointestinal bleed Therefore it is very important to??follow-up with your PCP within 3 to 5 days of your discharge??torecheck??a complete blood count??and monitor your hemoglobin Please take all your medications as prescribed Please??call your PCP office to schedule a follow-up appointment within 3 to 5 days Please follow-up with??your television news producer as an outpatient??as you have a new diagnosis of atrial fibrillation If you experience??recurrent dark stools,??lightheadedness, chest pain, bright red blood??in your stools??or any other complaints please call your PCP office or present to the nearest emergency department. It was a pleasure being part of your care team Post Discharge Care Diet: ??Cardiac diet ?? Activity: ??Ambulate with assistance 3 times a day unless otherwise specified ?? Code Status: ??Full ?? Condition: ??Fair ?? Prognosis: ??Fair ?? Results Discharge Labs BLOOD BANK Blood Type A Positive ()?? 05/23/2024 13:54 Antibody Screen Negative ()?? 05/23/2024 13:54 RBC Unit ID [id number] ()?? 05/24/2024 11:30 RBC Available PT ()?? 05/24/2024 11:30 ?? BLOOD COUNT & DIFF WBC 8.0 k/mm3 ()?? 05/27/2024 00:35 RBC 3.09 m/mm3 (Low)?? 05/27/2024 00:35 Hgb 7.4 Gm/dL (Low)?? 05/27/2024 00:35 Hct 25.0 % (Low)?? 05/27/2024 00:35 MCV 80.9 femtoliters ()?? 05/27/2024 00:35 MCH 23.9 pg (Low)?? 05/27/2024 00:35 MCHC 29.6 Gm/dL (Low)?? 05/27/2024 00:35 Platelet Count 256 k/mm3 ()?? 05/27/2024 00:35 RDW-SD 56.7 femtoliters (High)?? 05/27/2024 00:35 MPV 11.0 femtoliters ()?? 05/27/2024 00:35 Nucleated RBC (Automated) 0.4 #/100 WBC'S ()?? 05/27/2024 00:35 Abs. NRBC 0.0 k/mm3 ()?? 05/27/2024 00:35 Abs. Neut 5.4 k/mm3 ()?? 05/23/2024 11:34 Abs. Lymph 0.5 k/mm3 (Low)?? 05/23/2024 11:34 Abs. Gonzales 0.8 k/mm3 ()?? 05/23/2024 11:34 Abs. Eo 0.1 k/mm3 ()?? 05/23/2024 11:34 Abs. Baso 0.0 k/mm3 ()?? 05/23/2024 11:34 Neut % 78.6 % (High)?? 05/23/2024 11:34 Lymph % 7.5 % (Low)?? 05/23/2024 11:34 Gonzales % 11.5 % (High)?? 05/23/2024 11:34 Eos % 0.9 % ()?? 05/23/2024 11:34 Baso % 0.6 % ()?? 05/23/2024 11:34 Imm Gran 0.9 % ()?? 05/23/2024 11:34 Abs. Imm Gran 0.1 k/mm3 ()?? 05/23/2024 11:34 ?? CARDIAC Nt-Probnp 388 pg/mL ()?? 05/23/2024 11:34 High Sensitivity Troponin (HSTnT) 18 ng/L ()?? 05/23/2024 14:02 ?? CHEM GENERAL Sodium 137 mmol/L ()?? 05/27/2024 00:36 Potassium 4.0 mmol/L ()?? 05/27/2024 00:36 Chloride 105 mmol/L ()?? 05/27/2024 00:36 Bicarbonate Level 22 mmol/L ()?? 05/27/2024 00:36 Anion Gap 10 ()?? 05/27/2024 00:36 Glucose Level 94 mg/dL ()?? 05/27/2024 00:36 Glucose, POC 106 mg/dL (High)?? 05/26/2024 18:04 BUN 16 mg/dL ()?? 05/27/2024 00:36 Creatinine-Blood 1.12 mg/dL ()?? 05/27/2024 00:36 Estimated GFR Creatinine 64 ML/MIN/1.73 M2 ()?? 05/27/2024 00:36 Calcium 8.5 mg/dL (Low)?? 05/27/2024 00:36 Phosphorus 3.7 mg/dL ()?? 05/27/2024 00:36 Magnesium 2.2 mg/dL ()?? 05/27/2024 00:36 Protein, Total 6.0 Gm/dL (Low)?? 05/23/2024 11:34 Albumin 4.0 Gm/dL ()?? 05/23/2024 11:34 AG Ratio 2.0 ()?? 05/23/2024 11:34 Alkaline Phosphatase 42 units/L ()?? 05/23/2024 11:34 Lipase 27 units/L ()?? 05/23/2024 11:34 AST (SGOT) 11 units/L ()?? 05/23/2024 11:34 ALT (SGPT) 9 units/L ()?? 05/23/2024 11:34 Bilirubin, Total 0.5 mg/dL ()?? 05/23/2024 11:34 ? COAG D-Dimer 0.31 mg/L FEU ()?? 05/23/2024 11:34 ? HEME OTHER Hold Lavender Top SPECIMEN DISCARDED AFTER 24 HOURS. ()?? 05/27/2024 09:52 Hold Blue Top SPECIMEN DISCARDED AFTER 4 HOURS. ()?? 05/23/2024 11:34 ?? MISC. CHEMISTRY Hold Green Top SPECIMEN DISCARDED AFTER 1 WEEK ()?? 05/24/2024 08:31 ?This case has been??reviewed and discussed with Dr.??Paty Ferguson MD Internal Medicine PGY-3 Pager: [phone] ?? Parts of this note were accomplished using [employer] software. Despite efforts at performing a carefuland accurate dictation, this program is prone to speech recognition errors which may result in inaccurate documentation. If clinical questions should arise, please do not hesitate to contact me. ? 60_ minutes spent on discharge * Anibal DUPONT, Bree: PERFORM Event Display: Patient Education/Instruction Authored Date: [id number] Inpatient Adult Discharge Instructions. [address] [address] Name: CHAR TATE : 1935?? Visit: 05/23/2024 17:16?? Current Date: 05/27/2024 15:39 ?? Account: [id number]?? Inpatient Adult Discharge Instructions We would like to thank you for allowing us to assist you with your healthcare needs. The following includes patient education materials and information regarding your injury/illness. Our entire staffstrives to provide an excellent experience for our patients and their families. PLEASE ENSURE YOU FOLLOW-UP PER THE INSTRUCTIONS BELOW! ?? YOUR OPINION IS IMPORTANT TO US! Please complete the survey you may receive by mail or email. Your feedback will be used to make improvements to the healthcare experiences of our patients and their families. Surveys are administered by [employer] ?? If further treatment with your primary care physician or another doctor is recommended, it is important for you to keep the appointment. Call your primary care physician or return to the Emergency Department immediately if your condition worsens, fails to improve, or new symptoms develop. If you need to find a doctor, you can call [facility] Link for a referral at [phone] or toll free at [phone] or log in to [email or web address].. ?? [facility], in keeping with [facility] guidance, no longer requires face masks for staff, patientsor visitors in most situations. Similiar to time spent indoors at other locations, there is the chance that you were exposed to repiratory viruses during your time with us (such as flu or COVID-19). If you develop symptoms concerning for a viral respiratory infection, please seek testing (and treatment if indicated) from your medical provider or home test kit. ?? You can view and manage your care through the patient portal or by using a health care bhavya of your choosing. [employer] is a website that allows you to securely view your medical information including your hospital discharge summary, office visit summaries, medications and follow-up visits. You can also request appointments, renew medications, and request access to your medical information using a health care bhavya of your choosing, or just ask a question. You can enroll at [email or web address] or register during your next office visit. You have been discharged from [facility], Patient Care Unit: S2??. If you have any questions regarding these instructions, including results of studies pending, afteryou leave, please call us and we will be happy to assist you 22/12. [facility] Your Care Team Attending Physician Angella Newman MD?? Consulting Providers Angella Newman MD?? Discharging Providers Angela Ferguson MD Reason for Your Visit pt presenting to the ED from home with SOB on exertion x3 weeks with associated angina. recent workup at [facility] which showed no acute issues. endorsing epigastric pressure, weakness and fatigue.?? Your Diagnosis Acute blood loss anemia Acute upper GI bleed Arteriovenous malformation BPH (benign prostatic hyperplasia) Chest pain Coronary artery disease Hyperlipidemia Hyperlipidemia Hypertension Lesion of bone of shoulder New onset atrial fibrillation Obstructive sleep apnea Restless leg syndrome Tests Performed Below is a partial list of the tests performed during your hospitalization. You may have had other tests and procedures not included in this list. Please discuss all test results with your provider. Basic Metabolic Panel CBC CBC w/ Differential Comprehensive Metabolic Panel D-DIMER GLUCOSE POC H + H HEMOGLOBIN AND HEMATOCRIT High??Sensitivity??Troponin T Hold Blue Top Tube HOLD GREEN TUBE HOLD LAVENDER TUBE Lipase Magnesium Level Phosphorus Level ProBNP Type and Screen XR Chest 2 Views Frontal and Lat Add On Lab Order?? B Type Natriuretic Peptide (NT-proBNP) (ProBNP)?? Basic Metabolic Panel?? CBC?? CBC w/ Differential?? Comprehensive Metabolic Panel?? D Dimer (D-DIMER)?? Glucose POC?? Hgb + Hct (H + H)?? High??Sensitivity??Troponin T?? Hold Blue Top Tube?? Hold Green Top Tube (HOLD GREEN TUBE)?? Hold Lavender Top Tube (HOLD LAVENDER TUBE)?? Lipase?? Magnesium Level?? Pathology Tissue Request ()?? Phosphorus Level?? Transfuse RBCs?? Type and Screen?? Chest 2 Views Frontal and Lat (XR Chest 2 Views Frontal and Lat)?? Primary Care Provider Kiara Latham? Advance Directive Health Care Proxy on File No Patient refuses to discuss Discharge Vitals Temperature: 97.7 DegF Weight: 86.8 kg Pulse Rate: 70 bpm ?? Respiratory Rate: 16 br/min ?? Systolic Blood Pressure: 123 mm Hg ?? Diastolic Blood Pressure:??46 mm Hg??Low ?? Oxygen Saturation: 97 % ?? Studies Pending All studies ordered during this hospital stay have been completed unless listed below. Please discuss all pending results with your provider listed above in these instructions. ?? Add On Lab Order?? Pathology Tissue Request ()?? Transfuse RBCs?? What to do next Instructions From Your Doctor You presented to our hospital with complaints of??weakness, shortness of breath, and??chest??pressure You are found to have very low blood levels??and required blood transfusions Because you are also complaining of dark stools??you were seen by our gastroenterology team??who recommended??an upper endoscopy You underwent upper endoscopy which showed??1 small??arteriovenous malformation??which did not explain??your bleed Eventually??you??underwent??a colonoscopy??which revealed 4??arteriovenous malformations which could be the cause of your bleed and they were cauterized?? Your hemoglobin currently remains stable During this hospitalization you were diagnosed with an abnormal heart rhythm called atrial fibrillation Please continue to take your metoprolol 50 mg??twice a day??per your home dose this will help control your heart rate??and follow-up with your television news producer Because of atrial fibrillation you are at increased risk of developing strokes and thus??you need to be on??an anticoagulant You will be started on??Eliquis 5 mg twice a day Because you recently had??a gastrointestinal bleed you are at a moderate risk??of developing??another gastrointestinal bleed Therefore it is very important to??follow-up with your PCP within 3 to 5 days of your discharge??torecheck??a complete blood count??and monitor your hemoglobin Please take all your medications as prescribed Please??call your PCP office to schedule a follow-up appointment within 3 to 5 days Please follow-up with??your television news producer as an outpatient??as you have a new diagnosis of atrial fibrillation If you experience??recurrent dark stools,??lightheadedness, chest pain, bright red blood??in your stools??or any other complaints please call your PCP office or present to the nearest emergency department. It was a pleasure being part of your care team ?? Orders??:Cardiac diet :Ambulate with assistance ??3 times a day ??unless otherwise specified Status:Full :Fair :Fair? 05/27/24 15:31:00 EST?? You Need to Schedule the Following Appointments Follow Up with??Del DAUGHERTY , Kiara When:??Within 3-5 day: call to discuss follow up visit Why: Please call your PCP office within 3 to 5 days of your discharge to schedule a follow-up appointment to monitor your blood levels. Where: [address] [place] [id number]- Discharge Medications CHAR TATE :1935 Visit Date:05/23/2024 Medications: Please continue your medications until treatment is completed or stopped by your provider. Medications not listed below should be discontinued. Discuss any questions related to medications with your provider. What How Much When Instructions Next Dose New apixaban (Eliquis 5 mg oral tablet) 1 tab(s) Oral Twice a day Refills: 5 Pickup at [place] [address] 05/27 at 9pm New Ferrous Sulfate (ferrous sulfate 325 mg oral enteric coated tablet) 1 tab(s) Oral Every other day Duration: 90 Days Pickup at [place] [address] 05/28 at 9am Unchanged Acetaminophen (Tylenol 325 mg oral capsule) 2 capsule Oral Twice a day 05/27 at 9pm Unchanged Aspirin (aspirin 81 mg oral tablet) 1 tab(s) Oral Daily 05/28 at 9am Unchanged Fluticasone Nasal (fluticasone 50 mcg/ inh nasal spray) 2 spray(s) Nares, Both Twice a day 05/27 at 9pm Unchanged Latanoprost Ophthalmic (latanoprost 0.005% ophthalmic solution) 1 Drops Both eyes Daily at Bedtime 05/27 at 9pm Unchanged Lisinopril (lisinopril 10 mg oral tablet) 1 tab(s) Oral Daily in the morning 05/28 at 9am Unchanged Metoprolol (metoprolol 50 mg oral tablet) 1 tab(s) Oral Twice a day Pickup at [place] [address] 05/27 at 9pm Unchanged Multivitamin 1 tab(s) Oral Daily 05/28 at 9am Unchanged Ocular Lubricant (Artificial Tears Plus) ointment Both eyes Daily at Bedtime 05/27 at 9pm Unchanged Ocular Lubricant (Refresh - solution) 1 Drops Both eyes Twice a day as needed for for dry eyes As needed Unchanged Omeprazole (omeprazole 20 mg oral delayed release tablet) 1 tab(s) Oral Daily in the morning 05/28 at 9am Unchanged Rosuvastatin (rosuvastatin 40 mg oral capsule) 1 capsule Oral Daily at Bedtime 05/27 at 9pm Unchanged Tamsulosin 0.4 Milligram Oral Daily at supper 05/27 at 5pm Unchanged Timolol Ophthalmic (timolol maleate 0.25% ophthalmic solution) 1 Drops Both eyes Daily in the morning 05/28 at 9am Pharmacy Information [facility] 3: [address] [place] [address] [phone] ?? What How Much When Comments Stop Taking Loratadine (loratadine 10 mg oral tablet) 1 tab(s) Oral Daily in the morning Stop Taking Miscellaneous Rx (Misc Rx) iron 65mg oral daily ?? Prescription Given During Visit Ferrous Sulfate (ferrous sulfate 325 mg oral enteric coated tablet) - 1 tablet = 325 mg, By Mouth, Every other day, # 45 tablet, 0 Refills, [place] [id number]?? Metoprolol (metoprolol 50 mg oral tablet) - 1 tablet = 50 mg, By Mouth, 2 times a day, # 60 tablet,0 Refills, [place] [address] [phone]?? apixaban (Eliquis 5 mg oral tablet) - 1 tablet = 5 mg, By Mouth, 2 times a day, # 60 tablet, 5 Refills, [place] [address] [phone]?? Laboratory Results Below is a partial list of the most recent Laboratory test results done prior to this discharge. You may have had other tests and procedures not included in this list. Please discuss all test resultswith your provider. RBC Available - PT (05/24/2024) RBC Unit ID - [id number] (05/24/2024) Basic Metabolic Panel (05/27/2024) ???Sodium - 137 mmol/L???Potassium - 4.0 mmol/L???Chloride - 105 mmol/L???Bicarbonate Level - 22 mmol/L???Anion Gap - 10???Glucose Level - 94 mg/dL???BUN - 16 mg/dL???Creatinine-Blood - 1.12 mg/dL???Estimated GFR Creatinine - 64 ML/MIN/1.73 M2???Calcium - 8.5 mg/dL CBC (05/27/2024) ???WBC - 8.0 k/mm3???RBC - 3.09 m/mm3???Hgb - 7.4 Gm/dL???Hct - 25.0 %???MCV - 80.9 femtoliters???MCH - 23.9 pg???MCHC - 29.6 Gm/dL???Platelet Count - 256 k/mm3???RDW-SD - 56.7 femtoliters???MPV - 11.0 femtoliters???Nucleated RBC (Automated) - 0.4 #/100 WBC'S???Abs. NRBC - 0.0 k/mm3 CBC w/ Differential (05/23/2024) ???WBC - 6.8 k/mm3???RBC - 2.20 m/mm3???Hgb - 4.2 Gm/dL???Hct - 16.2 %???MCV - 73.6 femtoliters???MCH - 19.1 pg???MCHC - 25.9 Gm/dL???Platelet Count - 311 k/mm3???RDW-SD - 48.3 femtoliters???MPV - 10.9 femtoliters???Nucleated RBC (Automated) - 0.9 #/100 WBC'S???Abs. NRBC - 0.1 k/mm3???Abs. Neut - 5.4 k/mm3???Abs. Lymph - 0.5 k/mm3???Abs. Gonzales - 0.8 k/mm3???Abs. Eo - 0.1 k/mm3???Abs. Baso - 0.0 k/mm3???Neut % - 78.6 %???Lymph % - 7.5 %???Gonzales % - 11.5 %???Eos % - 0.9 %???Baso % - 0.6 %???Imm Gran - 0.9 %???Abs. Imm Gran - 0.1 k/mm3 Comprehensive Metabolic Panel (05/23/2024) ???Sodium - 142 mmol/L???Potassium - 4.0 mmol/L???Chloride - 109 mmol/L???Bicarbonate Level - 21 mmol/L???Anion Gap - 12???Glucose Level - 102 mg/dL???BUN - 20 mg/dL???Creatinine-Blood - 0.87 mg/dL???Estimated GFR Creatinine - 84 ML/MIN/1.73 M2???Calcium - 9.1 mg/dL???Protein, Total - 6.0 Gm/dL???Albumin - 4.0 Gm/dL???AG Ratio - 2.0???Alkaline Phosphatase - 42 units/L???AST (SGOT) - 11 units/L???ALT (SGPT) - 9 units/L???Bilirubin, Total - 0.5 mg/dL D-DIMER (05/23/2024) ???D-Dimer - 0.31 mg/L FEU GLUCOSE POC (05/26/2024) ???Glucose, POC - 106 mg/dL H + H (05/26/2024) ???Hgb - 7.7 Gm/dL???Hct - 26.0 % HEMOGLOBIN AND HEMATOCRIT (05/24/2024) ???Hgb - 7.9 Gm/dL???Hct - 27.0 % High??Sensitivity??Troponin T (05/23/2024) ???High Sensitivity Troponin (HSTnT) - 18 ng/L Hold Blue Top Tube (05/23/2024) ???Hold Blue Top - SPECIMEN DISCARDED AFTER 4 HOURS. HOLD GREEN TUBE (05/24/2024) ???Hold Green Top - SPECIMEN DISCARDED AFTER 1 WEEK HOLD LAVENDER TUBE (05/27/2024) ???Hold Lavender Top - SPECIMEN DISCARDED AFTER 24 HOURS. Lipase (05/23/2024) ???Lipase - 27 units/L Magnesium Level (05/27/2024) ???Magnesium - 2.2 mg/dL Phosphorus Level (05/27/2024) ???Phosphorus - 3.7 mg/dL ProBNP (05/23/2024) ???Nt-Probnp - 388 pg/mL Type and Screen (05/23/2024) ???Blood Type - A Positive???Antibody Screen - Negative You will be contacted within 72 hours with your results. Allergies (NKA means No Known Allergies) NSAIDs??(GI Ulcers) cortisone??(eye pressure) naproxen??(GI Ulcers) penicillin??(uknown) Problems Active Problems??(1) Obese class I?? Education Materials Below is the list of Educational Leaflet Providered with your Discharge Instructions. [employer] Patient Education - Lower GI Endoscopy?? [employer] Patient Education - Atrial Fibrillation?? [employer] Patient Education - Lower Gastrointestinal (GI) Bleeding (Stable)?? [employer] Patient Education - Iron Supplements?? [employer] Patient Education - Apixaban?? [employer] Patient Education - Afib Guidelines Patient Discharge Instructions?? [employer] Patient Education - Metoprolol?? Valuables and Belongings I fully understand and agree that [facility] accepts no responsibility for all my personal property including clothing, toilet articles, radios, jewelry, dentures, hearing aids, rings, money, or any other property that is in my possession or is brought to me after admission. I understand certain valuables may be placed in a hospital safe for a short period of time. I understand that the hospital is not liable for loss or damage due to accident, fire, or other natural occurrence while said property is in the safe. I accept full responsibility for any personal property that I keep with me, and will not hold the hospital responsible in case of loss or disappearance. I acknowledge that i have been encouraged to send valuables and belongings home. ?? Review of Valuable and Belonging List: With patient Possessions released to: Underwear, glasses and ring to PACU Date for Pt to Sign Valuables/Belongings: 05/26/24 23:08:00 ?? Other Discharge Information ? Pulmonary Rehab Status?? Pulmonary Rehab Discharge Status?? Respiratory Rate: 16 br/min ? Common Emergency Awareness Tips IS IT A STROKE? Act FAST and Check for these signs: FACE Does the face look uneven? ARM Does one arm drift down? SPEECH Does their speech sound strange? TIME Call at any sign of stroke ?? Heart Attack Signs Chest discomfort: Most heart attacks involve discomfort in the center of the chest and lasts more than a few minutes, or goes away and comes back. It can feel like uncomfortable pressure, squeezing, fullness or pain. Discomfort in upper body: Symptoms can include pain or discomfort in one or both arms, back, neck, jaw or stomach. Shortness of breath: With or without discomfort. Other signs: Breaking out in a cold sweat, nausea, or lightheaded. Remember, MINUTES DO MATTER. If you experience any of these heart attack warning signs, call to get immediate medical attention! ?? Smoking can increase your chances of developing chronic health problems and can cause harmful effects to other family members in your house. If you smoke, you are strongly encouraged to quit. Please call [facility] Link at [phone] or [phone] ([phone]) or log in to [email or web address] for referrals to smoking cessation programs. ?? 656 Suicide & Crisis Lifeline is available 22/12 if you or someone you know needs to find a reason to keep living. By calling 781 you'll be connected to a skilled, trained counselor at a crisis center in your area. INPATIENT DISCHARGE INSTRUCTIONS SIGNATURE PAGE LEA CHAR Location:[facility] Registration Date and Time:05/23/2024 17:16 EST Primary Care Physician: Kiara Latham, Attending Physician: Angella Newman MD, I CHAR TATE, have received the above patient education materials/instructions and have verbalized understanding. If ambulance or transport services are being used I further acknowledge being given a choice of service. ?? If you need to contact me, please call me at this number: . Patient/Agency Service Representative Name: Patient/Agency Service Representative Signature: Relationship to Patient: Witness Name/Signature: Date: * Angela Ferguson MD: PERFORM Event Display: Patient Education Leaflets Authored Date: [id number] Lower GI Endoscopy ?? [id number] Lower GI Endoscopy Lower GI endoscopy lets your healthcare provider view your lower gastrointestinal (GI) tract. Your entire colon and rectum can be examined (colonoscopy). Or just the rectum and sigmoid colon can be examined (sigmoidoscopy). During endoscopy,??a long,??flexible tube is used to view the inside of your lower GI tract. Before the exam Follow these and any other instructions you are given before your endoscopy. If you don't follow the instructions for getting ready for this test, the test may need to be canceled or done again. For this reason, read your instructions carefully before the exam. Call your healthcare provider with any questions. ??? Follow any directions you're given for not eating or drinking before the test. For a colonoscopy, you may be told to eat and drink only clear liquids for 1 to 3 days before the exam. You may have other diet changes.? Take any laxatives that are prescribed for you. An enema may also be prescribed. Follow the instructions for these carefully. ??? Arrange for someone to drive you home after the exam if you'll be sedated. ??? Tell your healthcare provider about all the medicines you take. This includes any prescription or [id number] medicines. It also includes vitamins,herbs, and other supplements. Also tell the provider if you take any illegal drugs. ??? Tell your provider if you have any health problems or allergies. ??? Discuss possible alternatives to the proced ure, and risks, with your healthcare provider.? The procedure ??? Colonoscopy can take 30 minutes or longer. Sigmoidoscopy often takes??about??20 minutes or longer. The length of the procedure depends a lot on how clean your intestines are, the reason for the procedure, and what biopsies or treatments must be done.? You lie on the??stretcher or bed??on your left side. ??? For colonoscopy, you're given medicine to relax you (sedation). This is given through an IV (intravenous) line. You can choose not to get any sedation medicines. Discuss this with your provider. Sigmoidoscopy usually doesn???t need sedation. ??? The endoscope is inserted into your rectum. You may feel pressure and cramping. If you feel pain, tell your healthcare provider. You may get more sedation, which includes pain medicine and an anti-anxiety medicine.? The endoscope sends images of your colon to a video screen. Prints of the images may be taken as a record of your exam. ??? Biopsies (tissue samples), polyp removal, or other treatments may be done.? When the procedure is done, you rest for a time.??You may??have some discomfort right after theprocedure from trapped air. This can be relieved by??changing position and passing the air. ??? If you've been sedated, you must have an adult drive you home. Don't work, drive, or make big decisionsfor 24 hours after sedation. ?? When to call your healthcare provider Call if your provider if you have any of the following after the procedure: ??? Belly pain ??? Fever of 100.4??F (38??C) or above, or as directed by your provider ??? Slight rectal bleeding ??? Nausea or vomiting ?? Call 911 Call 911, or get immediate medical care at the nearest emergency department , if you have heavy or prolonged rectal bleeding ?? Last Reviewed Date: 2023 ?? [employer]. All rights reserved. This information is not intended as a substitute for professional medical care. Always follow your healthcare professional's instructions. ?? * Angela Ferguson MD: PERFORM Event Display: Patient Education Leaflets Authored Date: [id number] Atrial Fibrillation ?? [id number] Atrial Fibrillation Atrial fibrillation is a condition in which the heart beats in an irregular pattern. It is the mostcommon abnormal heart rhythm. It is caused by a problem in the heart's electrical pathways within the muscle of the upper chambers of the heart (atria). It can be a sign of heart disease or other health problems that affect the heart. Heart palpitations are a common symptom of atrial fibrillation. This is the feeling that your heartis fluttering, or beating fast, hard, or irregular. When the heart beats too fast, it doesn't pump blood very well. This can cause other symptoms, such as anxiety, fatigue, shortness of breath, chestpain, dizziness, or fainting. Atrial fibrillation may come and go on its own, which is known as paroxysmal atrial fibrillation. It can last from a few hours to a couple of days. Or it may become persistent, lasting for weeks or months at a time. It can even become lifelong (permanent). Some symptoms of atrial fibrillation are hard to notice. For instance, some people develop subtle fatigue. Others notice a reduced ability to exercise. Some people have no symptoms. Atrial fibrillation is more common in older adults. It may be caused by heart disease or other conditions in the body that affect the heart. They include: ??? Coronary artery disease (atherosclerosis), sometimes called blocked arteries ??? High blood pressure ??? Disease of the heart valves ??? Enlarged heart ??? Heart failure Atrial fibrillation can also occur without heart disease because of: ??? Overactive thyroid (hyperthyroid) ??? Chronic lung disease (COPD, emphysema, or bronchitis) ???Heavy alcohol use ??? Heart stimulants, such as cocaine, amphetamines, diet pills, certain decongestant cold medicines, caffeine, or nicotine ??? Infection ??? Blood clot in the lung (pulmonary embolus) ??? Diabetes ??? Chronic kidney disease ??? Obesity ??? Obstructive sleep apnea ??? Extreme and continued athletic conditioning ??? Certain genetic diseases Treating or removing these causes will help your treatment for atrial fibrillation. It will also make it less likely for it to come back. Atrial fibrillation can alternate back and forth with another abnormal rhythm called atrial flutter. Atrial flutter is a more regular heart rhythm. It is also linked to an increased risk for stroke. Correct treatment of these arrhythmias can lower your risk for stroke. Home care Follow these guidelines when caring for yourself at home: ??? Go back to your usual activities as soon as you are feeling back to normal. ??? If you smoke, stop smoking. Contact your healthcare provider or a local stop-smoking program for help. ??? Don't use stimulants like alcohol, cocaine, amphetamines, diet pills, certain decongestant cold medicines, caffeine, or nicotine. ??? If your providerprescribed medicine to stop atrial fibrillation from coming back, take it exactly as directed. Somemedicines must be taken every day, not just when you have symptoms. This will help them work as they should. ??? If you were prescribed a blood-thinning medicine, take it exactly as prescribed. One of these medicines, called warfarin, needs your blood to be tested regularly as advised by your healthcare provider. This will make sure you are getting the dose that is right for you. It also lowers your risk for side effects. You may have been prescribed other blood-thinning medicines that don't need regular testing. ?? Follow-up care Follow up with your healthcare provider as advised. ?? When to get medical care Call your healthcare provider if any of these occur: ??? Swelling in the legs that gets worse ??? Unexpected weight gain ??? Pain, redness, or swelling in 1 leg ?? Call 911 Calling 911 is the fastest and safest way to get the emergency department. The paramedics can also start treatment on the way to the hospital, if needed. Call 911 or get medical help right away if any of these occur: ??? Weakness of an arm, leg, one side of the face ??? Chest pain ??? Shortness of breath, or feeling that you can't get enough air ??? Feeling lightheaded, faint, or dizzy ??? Your heartbeat is very fast, slow, or irregular compared with your regular heartbeat ??? Uncontrolled bleeding ??? Trouble with speech or vision ??? Extreme drowsiness, confusion, dizziness, or fainting ?? Last Reviewed Date: 2022 ?? [employer]. All rights reserved. This information is not intended as a substitute for professional medical care. Always follow your healthcare professional's instructions. ?? * Angela Ferguson MD: PERFORM Event Display: Patient Education Leaflets Authored Date: [id number] Lower Gastrointestinal (GI) Bleeding (Stable) ?? [id number] Lower Gastrointestinal (GI) Bleeding (Stable) You have signs of blood in your stool. This is called rectal bleeding. The bleeding may have begun in another part of your gastrointestinal (GI) tract. If the blood is bright red, it's likely coming from the lower part of the GI tract. If the blood is black or dark, it might be coming from higher up in the GI tract. Very small amounts of GI bleeding may not be visible and can only be discovered during a test on your stool. Possible causes of lower GI bleeding include: ??? Swollen inflamed veins in the rectum (hemorrhoids) ??? Tear in the lining of the anus (anal fissures) ??? Bleeding from a blood vessel in a small pouch in the large intestine (diverticular bleeding) ??? Inflammatory bowel disease (Crohn's disease or ulcerative colitis) ??? Polyps (growths) in the intestine ??? Swelling and irritation of the colon (infectious colitis or other types of colitis)??? Colon cancer Note:??Iron supplements and medicines for diarrhea or upset stomach can cause black stools. Foods, such as licorice and red beets, can also discolor the stool and be mistaken for bleeding. These are not bleeding and are not a cause for alarm. Home care You have not lost a large amount of blood and your condition appears stable at this time.??You may resume normal activity as long as you feel well. Don't take NSAIDs, such as aspirin, ibuprofen, or naproxen. They can irritate the stomach and causefurther bleeding. If you are taking these medicines for other medical reasons, talk to your healthcare provider before you stop them.? Follow-up care Follow up with your healthcare provider, or as advised. Further tests may be needed to find??the cause of your bleeding. ?? When to get medical advice Call your healthcare provider??right away??if any of the following occur: ??? Rectal bleeding?Increasing belly (abdominal) pain ??? Weakness, dizziness ??? Current symptoms get worse, or you have new symptoms ?? Call 911 Call 911 if any of the following occur: ??? Loss of consciousness ??? Vomiting blood ??? Large amount of rectal bleeding? Last Reviewed Date: 2022 ?? [id number] [employer]. All rights reserved. This information is not intended as a substitute for professional medical care. Always follow your healthcare professional's instructions. ?? Patient Care team information Care Team Personnel Name: Avani Junior RN Position: [facility] RN Member Role: Primary Care Nurse Name: Darrius Ulrich RN Position: [facility] RN Member Role: Primary Care Nurse Name: Bin Clark RN Position: S RN Member Role: Primary Care Nurse Name: Ashley Khan RN Position: S RN Member Role: Primary Care Nurse Name: Kiara Latham Position: Reference Physician Member Role: PCP Address: [address] [place] [address] Telecom: Insurance Providers Guarantor name: NA Health Plan Information #: 1 Payer: [facility] Member Number: [id number] Policy Number: NA Group Number: NA Health Plan Information #: 2 Payer: [facility] Member Number: [id number] Policy Number: NA Group Number: NA
--- OUTSIDE RECORDS SUMMARY | 2024-06-07 13:29 | XMS_ITS | Continuity of Care Document ---
Author Name [facility] Organization [facility] Care Team Providers Care Mend Worker Name Role Phone [facility] Unavailable Unavailable Problems Combined list of problems from Department of Defense and Veterans Affairs facilities. It does not include entries that were removed or entered in error. 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 [facility] Glaucoma Active Condition [facility] Hematuria (SCT 49853968) Active Condition [facility] HYPERLIPIDEMIA Active Condition [facility] IMPOTENCE, ORGANIC ORIGN Active Condition [facility] Inflamed Seborrheic Keratosis (SCT 24074213) Active Condition [facility] Long-term current use of anticoagulant Active Condition [facility] Obesity Active Condition [facility] Obstructive sleep apnea syndrome Active Condition [facility] Primary generalized osteoarthritis Active Condition [facility] Diagnosis: ICD-10-CM D64.9 Anemia, unspecified Active Diagnosis [facility] Diagnosis: ICD-10-CM Z51.81 Encounter for therapeutic drug level monitoring Active Diagnosis [facility] Diagnosis: ICD-10-CM I25.10 Athscl heart disease of [place] coronary artery w/o ang pctrs Active Diagnosis [...] HCS 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 [facility] Medications Combined list of outpatient medications from [...] EVERY EVENING ORAL ACTIVE JESSENIA YOO 2023 [facility] AMMONIUM LACTATE 12% LOTION APPLY MODERATE AMOUNT TOPICALL Y ONCE DAILY FOR DRY IRRITATE D SKIN TOPICA L ACTIVE 01/25/2025 [id number] 4 KIARA ESPARZA 2023 240 [facility] AMMONIUM LACTATE 12% LOTION APPLY MODERATE AMOUNT TOPICALL Y ONCE DAILY FOR DRY IRRITATE D SKIN TOPICA L DISCONT INUED 11/04/2023 [id number] WILLIAN LUNA 2022 240 [facility] APIXABAN 5MG TAB TAKE ONE TABLET BY MOUTH EVERY 12 HOURS ORAL ACTIVE KIARA ESPARZA 2024 [facility] CAPSAICIN 0.025% CREAM,TOP APPLY A THIN LAYER TOPICALL Y TWICE DAILY NEEDED FOR LOCALIZE D PAIN FOR KNEES TOPICA L ACTIVE 01/25/2025 [id number] 4 KIARA ESPARZA 2023 60 [facility] CAPSAICIN 0.025% CREAM,TOP APPLY A THIN LAYER TOPICALL Y TWICE DAILY NEEDED FOR KNEES TOPICA L DISCONT INUED (EDIT) 11/02/2024 [id number] 4 RA LEONILA BERTRAND 2023 60 [facility] CARBOXYMETH YLCELLULOSE NA 0.5% SOLN,OPH INSTILL 1 DROP INTO EACH EYE TWICE DAILY NEEDED FOR DRYNESS OPHTHA LMIC DISCONT INUED (EDIT) 05/17/2024 [id number] 3 KIARA ESPARZA 2022 15 [facility] CARBOXYMETH YLCELLULOSE NA 0.5% SOLN,OPH INSTILL 1 DROP INTO EACH EYE FOUR TIMES DAILY NEEDED FOR DRYNESS OPHTHA LMIC 06/02/2024 [id number] 4 KIARA ESPARZA 2023 45 [facility] DICLOFENAC NA 1% GEL,TOP APPLY 2 GRAMS TOPICALL Y FOUR TIMES A DAY FOR OSTEOART HRITIS - USE DOSING CARD PROVIDED IN BOX APPLY TO HANDS TOPICCharlie L 01/23/2024 [id number] 4 GAIL HARPER 2022 100 [facility] EYELID CLEANSER,EY E SCRUB PAD USE 1 PAD TOPICALL Y ONCE DAILY BLEPHARI TIS TOPICA L ACTIVE 02/16/2025 [id number] 4 Davide FREGOSO 2023 90 [facility] FERROUS SO4 325MG TAB TAKE ONE TABLET BY MOUTH ONCE DAILY TO SUPPLEME NT IRON ORAL DISCONT INUED BY PROVIDE R 11/26/2024 [id number] 4 KIARA ESPARZA 2023 100 [facility] FERROUS SO4 325MG TAB TAKE ONE TABLET BY MOUTH ONCE DAILY TO SUPPLEME NT IRON ORAL DISCONT INUED 10/10/2023 [id number] 4 KIARA ESPARZA 2022 100 [facility] GUAIFENESIN 600MG TAB,SA TAKE ONE TABLET BY MOUTH TWICE DAILY NEEDED FOR COUGH FOLLOW DOSE WITH FULL GLASS OF WATER ORAL 04/25/2023 [id number] 3 PAULETTE CHOWDHURY 2022 60 [facility] HYLAN G-F20 48MG/6ML INJ,SYRINGE ,6ML INJECT 48MG/6ML INTRA-AR TICULAR NEEDED FOR OSTEOART HRITIS OF THE KNEE DIRECTED BY PROVIDER INTRA- ARTICU LAR ACTIVE 02/02/2025 [id number] ALONDRA TEMPLEY P 2023 2 [facility] HYLAN G-F20 48MG/6ML INJ,SYRINGE ,6ML INJECT 48MG/6ML INTRA-AR TICULAR NEEDED DIRECTED BY PROVIDER INTRA- ARTICU LAR 01/16/2024 [id number] 4 SEPTEMBER,ALONDRA RLY P 2023 2 [facility] HYPROMELLOS E 0.3% GEL,OPH APPLY 1 TO 2 DROPS INTO EACH EYE AT BEDTIME FOR DRY EYE OPHTHA LMIC ACTIVE 02/16/2025 [id number] 4 Davide FREGOSO 2023 40 [facility] LACTULOSE 10GM/15ML SOLN,ORAL TAKE 30 ML (2 TABLESPO ONS) BY MOUTH TWICE DAILY NEEDED FOR CONSTIPA TION ORAL ACTIVE 06/20/2024 [id number] 4 PAULETTE CHOWDHURY 2023 473 [facility] LATANOPROST 0.005% SOLN,OPH INSTILL 1 DROP INTO EACH EYE AT BEDTIME FOR INCREASE D PRESSURE IN THE EYE OPHTHA LMIC ACTIVE 02/16/2025 [id number] 4 Davide FREGOSO 2023 7.5 [facility] LATANOPROST 0.005% SOLN,OPH INSTILL 1 DROP INTO EACH EYE AT BEDTIME FOR INCREASE D PRESSURE IN THE EYE OPHTHA LMIC 10/28/2023 [id number] 4 Davide FREGOSO 2023 12.5 [facility] LIDOCAINE 5% PATCH APPLY 1 PATCH TOPICALL Y ONCE DAILY (LEAVE PATCH ON FOR 12 HOURS THEN LEAVE OFF FOR 12 HOURS) TOPICA L ACTIVE 04/08/2025 [id number] 4 GAIL HARPER 2023 90 [facility] LISINOPRIL 10MG TAB TAKE ONE TABLET BY MOUTH ONCE DAILY TO CONTROL BLOOD PRESSURE ORAL ACTIVE 04/01/2025 [id number] 4 KIARA ESPARZA [address] LISINOPRIL 10MG TAB TAKE ONE TABLET BY MOUTH ONCE DAILY TO CONTROL BLOOD PRESSURE ORAL DISCONT INUED 03/02/2024 [id number] 4 KIARA ESPARZA 2022 90 [facility] METOPROLOL TARTRATE 50MG TAB TAKE ONE TABLET BY MOUTH TWICE DAILY FOR BLOOD PRESSURE /HEART ORAL ACTIVE 01/25/2025 [id number] 4 KIARA ESPARZA 2023 180 [facility] METOPROLOL TARTRATE 50MG TAB TAKE ONE TABLET BY MOUTH TWICE DAILY FOR BLOOD PRESSURE /HEART ORAL DISCONT INUED 02/01/2024 [id number] 4 KIARA ESPARZA 2022 180 [facility] MINERAL OIL,LIGHT/P ETROLATUM (PF) OINT,OPH APPLY THIN RIBBON INTO EACH EYE AT BEDTIME OPHTHA LMIC 03/04/2024 [id number] 4 KIARA ESPARZA 2022 2 [facility] MULTIVITAMI NS W/MINERALS TAB TAKE ONE TABLET BY MOUTH EVERY MORNING ORAL ACTIVE KIARA ESPARZA 2012 [facility] OMEPRAZOLE 20MG CAP,EC TAKE ONE CAPSULE BY MOUTH EVERY MORNING 30 MINUTES BEFORE BREAKFAS T ORAL ACTIVE 09/28/2024 [id number] 4 KIARA ESPARZA [address] [facility] OMEPRAZOLE 20MG CAP,EC TAKE ONE CAPSULE BY MOUTH EVERY MORNING 30 MINUTES BEFORE BREAKFAS T ORAL DISCONT INUED 10/30/2023 [id number] 4 KIARA ESPARZA 2022 90 [facility] POLYETHYLEN E GLYCOL 3350 PWDR,ORAL TAKE 17 GRAMS(FI LL CAP TO 17GM LINE) BY MOUTH ONCE DAILY FOR CONSTIPA TION [MIX WITH 4 TO 8OZ. OF BEVERAGE ] ORAL ACTIVE 05/10/2025 [id number] 4 KIARA ESPARZA 2023 510 [facility] POLYETHYLEN E GLYCOL 3350 PWDR,ORAL TAKE 17 GRAMS(FI LL CAP TO 17GM LINE) BY MOUTH ONCE DAILY FOR CONSTIPA TION [MIX WITH 4 TO 8OZ. OF BEVERAGE ] ORAL DISCONT INUED 04/21/2024 [id number] 4 PAULETTE CHOWDHURYNAH 2023 510 [facility] ROSUVASTATI N CA 40MG TAB TAKE ONE TABLET BY MOUTH ONCE DAILY FOR CHOLESTE ROL ORAL ACTIVE 09/28/2024 [id number] 4 KIARA ESPARZA 2023 90 [facility] ROSUVASTATI N CA 40MG TAB TAKE ONE TABLET BY MOUTH ONCE DAILY FOR CHOLESTE ROL ORAL DISCONT INUED 10/30/2023 [id number] 4 KIARA ESPARZA 2022 90 [facility] TAMSULOSIN HCL 0.4MG CAP TAKE ONE CAPSULE BY MOUTH ONCE DAILY FOR ENLARGED PROSTATE ORAL ACTIVE 04/22/2025 [id number] 4 KIARA ESPARZA 2023 90 [facility] TAMSULOSIN HCL 0.4MG CAP TAKE ONE CAPSULE BY MOUTH ONCE DAILY FOR ENLARGED PROSTATE ORAL DISCONT INUED 06/02/2024 [id number] 4 KIARA ESPARZA 2023 90 [facility] TAMSULOSIN HCL 0.4MG CAP TAKE ONE CAPSULE BY MOUTH ONCE DAILY ORAL DISCONT INUED (EDIT) 03/05/2024 [id number] 3 KIARA ESPARZA 2022 30 [facility] TIMOLOL MALEATE 0.5% SOLN,OPH INSTILL 1 DROP INTO EACH EYE EVERY MORNING OPHTHA LMIC 03/04/2024 [id number] 4 Davide FREGOSO 2022 15 [facility] Allergies, Adverse Reactions, Alerts Combined list of allergies from Department of Defense and Veterans Affairs facilities. It does not include entries that were removed or entered in error. Substance Category Reaction Severity Reaction type Status Date Reported Comments Source CORTISONE Propensity to adverse reactions to drug (finding) Raised intraocular pressure active 9 [facility] NAPROXEN Propensity to adverse reactions to drug (finding) Gastric ulcer active 9 [facility] PENICILLIN Propensity to adverse reactions to drug (finding) Itching active 3 [facility] Immunizations Combined list of available immunizations from the Department of Defense and Veterans Affairs facilities. Immunization Series Date Given Administered By Site Reaction Lot Number CVX Code Drug Travel Information Center Supervisor Status Comments Source COVID-19 (MODERNA), MRNA, LNP-S, PF, 50 MCG/0.5 ML (AGES 12+ YEARS) 6 [facility]23 [facility] INFLUENZA, UNSPECIFIED FORMULATION 2023 88 [facility] TDAP 2023 [place]EL [place] E LEFT DELTO ID [id number] 115 [facility] INFLUENZA, HIGH-DOSE, QUADRIVALENT 2022 EFFIE CHEN ER M LEFT DELTO ID [id number] 197 complet [facility] RSV, BIVALENT, PROTEIN SUBUNIT RSVPREF, DILUENT RECONSTITUTED , 0.5 ML, PF 2022 EFFIE CHEN ER M RIGHT DELTO ID [id number] 305 complet ed [id number] [facility] COVID-19 (MODERNA), MRNA, LNP-S, BIVALENT BOOSTER, PF, 50 MCG/0.5 ML OR 25MCG/0.25 ML DOSE 1 2022 ALLEN RUIZ LEFT DELTO ID [id number] 229 complet ed [facility] INFLUENZA, UNSPECIFIED FORMULATION 2021 88 complet ed [facility] COVID-19 (MODERNA), MRNA, LNP-S, PF, 100 MCG/0.5ML DOSE OR 50 MCG/0.25ML DOSE 3 2021 207 complet ed [facility] COVID-19 (MODERNA), MRNA, LNP-S, PF, 100 MCG OR 50 MCG DOSE 3 2020 207 complet ed MOD; [id number]; 2 [facility] INFLUENZA VACCINE, QUADRIVALENT, ADJUVANTED 2020 205 complet ed [facility] COVID-19 (MODERNA), MRNA, LNP-S, PF, 100 MCG/0.5 ML DOSE 2 2020 207 complet ed MOD; [id number]; 1 [facility] COVID-19 (MODERNA), MRNA, LNP-S, PF, 100 MCG/0.5 ML DOSE 1 2020 207 complet ed MOD; [id number]; 1 [facility] INFLUENZA, HIGH-DOSE, QUADRIVALENT 2019 197 complet ed [facility] ZOSTER RECOMBINANT 2 2018 187 complet ed [facility] INFLUENZA, HIGH DOSE SEASONAL 2018 135 complet ed Partner: [facility]. Administe red by: JOEL PETERSEN (MOW=[phone]). Partner 6 Lot#: [id number] Mfr: Sanofi P[employer]ur; Dosage: 0.5 [facility] INFLUENZA, SEASONAL, INJECTABLE 2018 141 complet ed [facility] ZOSTER RECOMBINANT 2018 187 complet ed Partner: [facility]. Administe red by: JOEL JERAD PETERSEN (MGC=[phone]). Partner 6 Lot#: [id number] Mfr: [employer] hKline; Dosage: 1 [facility] INFLUENZA, SEASONAL, [...] Reference Range Date Interpretation Specimen Comments Source PT & INR (COUMADIN ) INR IN PLATELET POOR PLASMA BY COAGULATION ASSAY 1.5 05/31 Specimen Type: PLASMA No comment entered. Ordering Provider: Promise ESPARZA Report Released Date/Time: May 27, 2024 04:53 PM Reporting Lab: [facility] [place] [facility] [address] [facility] [address] Performing Lab: [facility] [place] [facility] [address] [facility] [address] [facility] PT & INR (COUMADIN ) PROTHROMBIN TIME (PT) 16.6 s 10.0 - 13.1 05/31 H Specimen Type: PLASMA No comment entered. Ordering Provider: Promise ESPARZA Report Released Date/Time: May 27, 2024 04:53 PM Reporting Lab: [facility] [place] [facility] [address] [facility] [address] Performing Lab: [facility] [place] [facility] [address] [facility] [address] [facility] CREATININ E (eGFR 2020) CREATININE [MASS/VOLUM E] IN SERUM OR PLASMA 0.85 mg/dL 0.50 - 1.40 05/31 Specimen Type: SERUM No comment entered. Ordering Provider: Promise ESPARZA Report Released Date/Time: May 27, 2024 04:53 PM Reporting Lab: [facility] [place] [facility] [address] [facility] [address] Performing Lab: [facility] [place] [facility] [address] [facility] [address] [facility] CREATININ E (eGFR 2020) GLOMERULAR FILTRATION RATE/1.73 SQ M.PREDICTED [VOLUME RATE/AREA] IN SERUM, PLASMA OR BLOOD BY CREATININE- BASED FORMULA (CKD-EPI 2020) 84 mL/min 60 05/31 Specimen Type: SERUM No comment entered. Ordering Provider: Promise ESPARZA Report Released Date/Time: May 27, 2024 04:53 PM Reporting Lab: [facility] [place] [facility] [address] [facility] [address] Performing Lab: [facility] [place] [facility] [address] [facility] [address] [facility] LIVER FUNCTION PROTEIN [MASS/VOLUM E] IN SERUM OR PLASMA 5.8 g/dL 6.0 - 8.3 05/31 L Specimen Type: SERUM No comment entered. Ordering Provider: Promise ESPARZA Report Released Date/Time: May 27, 2024 04:53 PM Reporting Lab: [facility] [place] [facility] [address] [facility] [address] Performing Lab: [facility] [place] [facility] [address] [facility] [address] [facility] [facility] LIVER FUNCTION ALBUMIN [MASS/VOLUM E] IN SERUM OR PLASMA 3.7 g/dL 3.5 - 5.0 05/31 Specimen Type: SERUM No comment entered. Ordering Provider: Promise ESPARZA Report Released Date/Time: May 27, 2024 04:53 PM Reporting Lab: [facility] [place] [address] [address] Performing Lab: [facility] [place] [address] [address] [facility] LIVER FUNCTION ALKALINE PHOSPHATASE [ENZYMATIC ACTIVITY/VO LUME] IN SERUM OR PLASMA 43 U/L 40 - 150 05/31 Specimen Type: SERUM No comment entered. Ordering Provider: Promise ESPARZA Report Released Date/Time: May 27, 2024 04:53 PM Reporting Lab: [facility] [place] [address] [address] Performing Lab: [facility] [place] [address] [address] [facility] LIVER FUNCTION ASPARTATE AMINOTRANSF ERASE [ENZYMATIC ACTIVITY/VO LUME] IN SERUM OR PLASMA 11 U/L 5 - 34 05/31 Specimen Type: SERUM No comment entered. Ordering Provider: Promise ESPARZA Report Released Date/Time: May 27, 2024 04:53 PM Reporting Lab: [facility] [place] [address] [address] Performing Lab: [facility] [place] [facility] [address] [facility] [address] [facility] LIVER FUNCTION ALANINE AMINOTRANSF ERASE [ENZYMATIC ACTIVITY/VO LUME] IN SERUM OR PLASMA 13 U/L 05/31 Specimen Type: SERUM No comment entered. Ordering Provider: Promise ESPARZA Report Released Date/Time: May 27, 2024 04:53 PM Reporting Lab: [facility] [place] [facility] [address] [facility] [address] Performing Lab: [facility] [place] [facility] [address] [facility] [address] [facility] LIVER FUNCTION BILIRUBIN.T OTAL [MASS/VOLUM E] IN SERUM OR PLASMA 0.5 mg/dL 0.2 - 1.2 05/31 Specimen Type: SERUM No comment entered. Ordering Provider: Promise ESPARZA Report Released Date/Time: May 27, 2024 04:53 PM Reporting Lab: [facility] [place] [address] [address] Performing Lab: [facility] [place] [address] [address] [facility] CBC LEUKOCYTES [#/VOLUME] IN BLOOD BY AUTOMATED COUNT 6.32 10*3/u L 4.50 - 11.00 05/31 Specimen Type: BLOOD Comment: Verified by repeat analysis. Critical result acknowledge godwin TEE, [id number], 12:13, JCL Ordering Provider: Promise ESPARZA Report Released Date/Time: May 27, 2024 04:53 PM Reporting Lab: [facility] [place] [address] [address] Performing Lab: [facility] [place] [address] [address] [facility] CBC ERYTHROCYTE S [#/VOLUME] IN BLOOD BY AUTOMATED COUNT 3.26 10*6/u L 4.23 - 5.66 05/31 L Specimen Type: BLOOD Comment: Verified by repeat analysis. Critical result acknowledge godwin TEE [id number], 12:13, [facility] Ordering Provider: Promise ESPARZA Report Released Date/Time: May 27, 2024 04:53 PM Reporting Lab: [facility] [place] [facility] [address] [facility] [address] Performing Lab: [facility] [place] [address] [address] [facility] [place] CBC HEMOGLOBIN [MASS/VOLUM E] IN BLOOD 7.5 g/dL 12.8 - 17 05/31 LL Specimen Type: BLOOD Comment: Verified by repeat analysis. Critical result acknowledge godwin TEE, [id number], 12:13, [facility] Ordering Provider: Promise ESPARZA Report Released Date/Time: May 27, 2024 04:53 PM Reporting Lab: [facility] [place] [address] [address] Performing Lab: [facility] [place] [address] [address] [facility] [place] CBC HEMATOCRIT [VOLUME FRACTION] OF BLOOD BY AUTOMATED COUNT 26.2 39.2 - 50.4 05/31 L Specimen Type: BLOOD Comment: Verified by repeat analysis. Critical result acknowledge godwin TEE [id number], 12:13, [facility] Ordering Provider: Promise ESPARZA Report Released Date/Time: May 27, 2024 04:53 PM Reporting Lab: [facility] [place] [facility] [address] [facility] [address] Performing Lab: [facility] [place] [address] [address] [facility] [place] [facility] CBC MCV [ENTITIC VOLUME] BY AUTOMATED COUNT 80.4 fL 82 - 99 05/31 L Specimen Type: BLOOD Comment: Verified by repeat analysis. Critical result acknowledge godwin TEE [id number], 12:13, JCL Ordering Provider: Promise ESPARZA Report Released Date/Time: May 27, 2024 04:53 PM Reporting Lab: [facility] [place] [address] Performing Lab: [facility] [place] [address] [facility] CBC MCHC [MASS/VOLUM E] BY AUTOMATED COUNT 28.6 g/dL 30.8 - 35.1 05/31 L Specimen Type: BLOOD Comment: Verified by repeat analysis. Critical result acknowledge godwin TEE, [id number], 12:13, JCL Ordering Provider: Promise ESPARZA Report Released Date/Time: May 27, 2024 04:53 PM Reporting Lab: [facility] [place] [address] [address] Performing Lab: [facility] [place] [address] [facility] CBC PLATELETS [#/VOLUME] IN BLOOD BY AUTOMATED COUNT 309 10*3/u L 140 - 360 05/31 Specimen Type: BLOOD Comment: Verified by repeat analysis. Critical result acknowledge godwin TEE, [id number], 12:13, JCL Ordering Provider: Promise ESPARZA Report Released Date/Time: May 27, 2024 04:53 PM Reporting Lab: [facility] [place] [address] [address] Performing Lab: [facility] [place] [address] [address] [facility] [place] [facility] CBC ERYTHROCYTE DISTRIBUTIO N WIDTH [RATIO] BY AUTOMATED COUNT 19.1 12.0 - 16.0 05/31 H Specimen Type: BLOOD Comment: Verified by repeat analysis. Critical result acknowledge godwin TEE, [id number], 12:13, JCL Ordering Provider: VANWAGNER,W ILLIAM F Report Released Date/Time: May 27, 2024 04:53 PM Reporting Lab: [facility] [place] [address] [address] Performing Lab: [facility] [place] [address] [address] [facility] [place] [facility] CBC MCH [ENTITIC MASS] BY AUTOMATED COUNT 23.0 pg 26.2 - 32.6 05/31 L Specimen Type: BLOOD Comment: Verified by repeat analysis. Critical result acknowledge godwin TEE, [id number], 12:13, JCL Ordering Provider: Promise ESPARZA Report Released Date/Time: May 27, 2024 04:53 PM Reporting Lab: [facility] [place] [address] [address] Performing Lab: [facility] [id number] [place], [place] [address] [facility] LIVER FUNCTION PROTEIN [MASS/VOLUM E] IN SERUM OR PLASMA 6.2 g/dL 6.0 - 8.3 05/02 Specimen Type: SERUM Comment: Hemolysis present analysis cannot be performed. Hemolysis present may falsly elevate Potassium Total and Direct Bili, Iron, AST, %Fe. Ordering Provider: Promise ESPARZA Report Released Date/Time: Apr 27, 2024 11:20 AM Reporting Lab: [facility] [place] [address] [address] Performing Lab: [facility] [place] [address] [address] [facility] [place] [facility] LIVER FUNCTION ALBUMIN [MASS/VOLUM E] IN SERUM OR PLASMA 3.8 g/dL 3.5 - 5.0 05/02 Specimen Type: SERUM Comment: Hemolysis present analysis cannot be performed. Hemolysis present may falsly elevate Potassium Total and Direct Bili, Iron, AST, %Fe. Ordering Provider: Promise ESPARZA Report Released Date/Time: Apr 27, 2024 11:20 AM Reporting Lab: [place] [facility] [place] [facility] [address] [facility] [address] Performing Lab: [place] [facility] [place] [facility] [address] [facility] [id number] [facility] [place] [facility] LIVER FUNCTION ALKALINE PHOSPHATASE [ENZYMATIC ACTIVITY/VO LUME] IN SERUM OR PLASMA 35 U/L 40 - 150 05/02 L Specimen Type: SERUM Comment: Hemolysis present analysis cannot be performed. Hemolysis present may falsly elevate Potassium Total and Direct Bili, Iron, AST, %Fe. Ordering Provider: Promise ESPARZA Report Released Date/Time: Apr 27, 2024 11:20 AM Reporting Lab: [place] [facility] [place] [facility] [address] [facility] [address] Performing Lab: [place] [facility] [place] [facility] [address] [facility] [address] [facility] [place] [facility] LIVER FUNCTION ASPARTATE AMINOTRANSF ERASE [ENZYMATIC ACTIVITY/VO LUME] IN SERUM OR PLASMA 22 U/L 5 - 34 05/02 Specimen Type: SERUM Comment: Hemolysis present analysis cannot be performed. Hemolysis present may falsly elevate Potassium Total and Direct Bili, Iron, AST, %Fe. Ordering Provider: Promise ESPARZA Report Released Date/Time: Apr 27, 2024 11:20 AM Reporting Lab: [place] [facility] [place] [facility] [address] [facility] [address] Performing Lab: [facility] [place] [facility] [address] [facility] [address] [place] [facility] [place] [facility] LIVER FUNCTION ALANINE AMINOTRANSF ERASE [ENZYMATIC ACTIVITY/VO LUME] IN SERUM OR PLASMA 12 U/L 05/02 Specimen Type: SERUM Comment: Hemolysis present analysis cannot be performed. Hemolysis present may falsly elevate Potassium Total and Direct Bili, Iron, AST, %Fe. Ordering Provider: Promise ESPARZA Report Released Date/Time: Apr 27, 2024 11:20 AM Reporting Lab: [facility] [facility] [address] [facility] [address] Performing Lab: [facility] [place] [facility] [address] [facility] [address] [facility] [facility] LIVER FUNCTION BILIRUBIN.T OTAL [MASS/VOLUM E] IN SERUM OR PLASMA commen tmg/dL 0.2 - 1.2 05/02 Specimen Type: SERUM Comment: Hemolysis present analysis cannot be performed. Hemolysis present may falsly elevate Potassium Total and Direct Bili, Iron, AST, %Fe. Ordering Provider: Promise ESPARZA Report Released Date/Time: Apr 27, 2024 11:20 AM Reporting Lab: [facility] [facility] [address] [facility] [address] Performing Lab: [facility] [address] [address] [facility] BASIC METABOLIC PANEL (fasting) UREA NITROGEN [MASS/VOLUM E] IN SERUM OR PLASMA 24 mg/dL 7 - 25 05/02 Specimen Type: SERUM Comment: Hemolysis present analysis cannot be performed. Hemolysis present may falsly elevate Potassium Total and Direct Bili, Iron, AST, %Fe. Ordering Provider: Promise ESPARZA Report Released Date/Time: Apr 27, 2024 11:20 AM Reporting Lab: [place] [facility] [address] [address] Performing Lab: [place] [facility] [place] [address] [address] [facility] BASIC METABOLIC PANEL (fasting) GLUCOSE [MASS/VOLUM E] IN SERUM OR PLASMA 93 mg/dL 65 - 100 05/02 Specimen Type: SERUM Comment: Hemolysis present analysis cannot be performed. Hemolysis present may falsly elevate Potassium Total and Direct Bili, Iron, AST, %Fe. Ordering Provider: Promise ESPARZA Report Released Date/Time: Apr 27, 2024 11:20 AM Reporting Lab: [place] [facility] [place] [address] [address] Performing Lab: [place] [facility] [place] [address] [address] [facility] [place] [facility] BASIC METABOLIC PANEL (fasting) SODIUM [MOLES/VOLU ME] IN SERUM OR PLASMA 140 mmol/L 135 - 145 05/02 Specimen Type: SERUM Comment: Hemolysis present analysis cannot be performed. Hemolysis present may falsly elevate Potassium Total and Direct Bili, Iron, AST, %Fe. Ordering Provider: Promise ESPARZA Report Released Date/Time: Apr 27, 2024 11:20 AM Reporting Lab: [facility] [address] [facility] [address] Performing Lab: [facility] [address] [facility] BASIC METABOLIC PANEL (fasting) POTASSIUM [MOLES/VOLU ME] IN SERUM OR PLASMA 5.1 mmol/L 3.5 - 5.0 05/02 H Specimen Type: SERUM Comment: Hemolysis present analysis cannot be performed. Hemolysis present may falsly elevate Potassium Total and Direct Bili, Iron, AST, %Fe. Ordering Provider: Promise ESPARZA Report Released Date/Time: Apr 27, 2024 11:20 AM Reporting Lab: [facility] [address] [address] Performing Lab: [facility] [address] [facility] [address] [facility] BASIC METABOLIC PANEL (fasting) CHLORIDE [MOLES/VOLU ME] IN SERUM OR PLASMA 112 mmol/L 100 - 110 05/02 H Specimen Type: SERUM Comment: Hemolysis present analysis cannot be performed. Hemolysis present may falsly elevate Potassium Total and Direct Bili, Iron, AST, %Fe. Ordering Provider: Promise ESPARZA Report Released Date/Time: Apr 27, 2024 11:20 AM Reporting Lab: [facility] [address] [facility] [address] Performing Lab: [facility] [address] [address] [facility] BASIC METABOLIC PANEL (fasting) CARBON DIOXIDE, TOTAL [MOLES/VOLU ME] IN SERUM OR PLASMA 19 meq/L 20 - 30 05/02 L Specimen Type: SERUM Comment: Hemolysis present analysis cannot be performed. Hemolysis present may falsly elevate Potassium Total and Direct Bili, Iron, AST, %Fe. Ordering Provider: Promise ESPARZA Report Released Date/Time: Apr 27, 2024 11:20 AM Reporting Lab: [facility] [address] [facility] [address] Performing Lab: [facility] [address] [facility] [address] [facility] BASIC METABOLIC PANEL (fasting) CREATININE [MASS/VOLUM E] IN SERUM OR PLASMA 0.87 mg/dL 0.50 - 1.40 05/02 Specimen Type: SERUM Comment: Hemolysis present analysis cannot be performed. Hemolysis present may falsly elevate Potassium Total and Direct Bili, Iron, AST, %Fe. Ordering Provider: Promise ESPARZA Report Released Date/Time: Apr 27, 2024 11:20 AM Reporting Lab: [facility] [address] [facility] [address] Performing Lab: [facility] [address] [facility] [address] [facility] BASIC METABOLIC PANEL (fasting) GLOMERULAR [...] Apr 27, 2024 11:20 AM Reporting Lab: [facility] [address] [facility] [address] Performing Lab: [address] [address] [facility] HEMOGLOBI N A1C PANEL HEMOGLOBIN A1C/HEMOGLO [...] Apr 27, 2024 11:20 AM Reporting Lab: [address] [address] Performing Lab: [address] [address] [facility] LIPID PANEL FASTING CHOLESTEROL [MASS/VOLUM E] IN SERUM OR PLASMA 85 mg/dL 05/02 Specimen Type: SERUM Comment: Hemolysis present analysis cannot be performed. Hemolysis present may falsly elevate Potassium Total and Direct Bili, Iron, AST, %Fe. Ordering Provider: Promise ESPARZA Report Released Date/Time: Apr 27, 2024 11:20 AM Reporting Lab: [address] [address] Performing Lab: [address] [address] [facility] LIPID PANEL FASTING TRIGLYCERID E [MASS/VOLUM E] IN SERUM OR PLASMA 130 mg/dL 0 - 150 05/02 Specimen Type: SERUM Comment: Hemolysis present analysis cannot be performed. Hemolysis present may falsly elevate Potassium Total and Direct Bili, Iron, AST, %Fe. Ordering Provider: Promise ESPARZA Report Released Date/Time: Apr 27, 2024 11:20 AM Reporting Lab: [address] [address] Performing Lab: [address] [address] [facility] [place] [facility] LIPID PANEL FASTING CHOLESTEROL IN LDL [MASS/VOLUM E] IN SERUM OR PLASMA BY CALCULATION 29 mg/dL 0 - 129 05/02 Specimen Type: SERUM Comment: Hemolysis present analysis cannot be performed. Hemolysis present may falsly elevate Potassium Total and Direct Bili, Iron, AST, %Fe. Ordering Provider: Promise ESPARZA Report Released Date/Time: Apr 27, 2024 11:20 AM Reporting Lab: [facility] [place] [facility] [address] [facility] [address] Performing Lab: [facility] [address] [facility] [address] [facility] LIPID PANEL FASTING CHOLESTEROL .TOTAL/CHOL ESTEROL IN HDL [MASS RATIO] IN SERUM OR PLASMA 2.8 05/02 Specimen Type: SERUM Comment: Hemolysis present analysis cannot be performed. Hemolysis present may falsly elevate Potassium Total and Direct Bili, Iron, AST, %Fe. Ordering Provider: Promise ESPARZA Report Released Date/Time: Apr 27, 2024 11:20 AM Reporting Lab: [facility] [place] [place] [facility] [address] [facility] [address] Performing Lab: [facility]N [facility] [address] [facility] [address] [facility] LIPID PANEL FASTING CHOLESTEROL IN HDL [MASS/VOLUM E] IN SERUM OR PLASMA 30 mg/dL 40 - 60 05/02 L Specimen Type: SERUM Comment: Hemolysis present analysis cannot be performed. Hemolysis present may falsly elevate Potassium Total and Direct Bili, Iron, AST, %Fe. Ordering Provider: Promise ESPARZA Report Released Date/Time: Apr 27, 2024 11:20 AM Reporting Lab: [facility] [place] [facility] [address] [facility] [address] Performing Lab: [facility] [address] [facility] [address] [facility] LIPID PANEL FASTING CHOLESTEROL [MASS/VOLUM E] IN SERUM OR PLASMA 107 mg/dL 01/17 Specimen Type: SERUM No comment entered. Ordering Provider: Promise ESPARZA Report Released Date/Time: Sep 28, 2023 11:20 AM Reporting Lab: [facility] [place] [facility] [address] [facility] [address] Performing Lab: [facility] [place] [facility] [address] [facility] [address] [facility] [place] [facility] LIPID PANEL FASTING TRIGLYCERID E [MASS/VOLUM E] IN SERUM OR PLASMA 225 mg/dL 0 - 150 01/17 H Specimen Type: SERUM No comment entered. Ordering Provider: Promise ESPARZA Report Released Date/Time: Sep 28, 2023 11:20 AM Reporting Lab: [facility] [facility] [address] [facility] [address] Performing Lab: [facility] [facility] [address] [facility] [address] [facility] [place] [facility] LIPID PANEL FASTING CHOLESTEROL IN LDL [MASS/VOLUM E] IN SERUM OR PLASMA BY CALCULATION 33 mg/dL 0 - 129 01/17 Specimen Type: SERUM No comment entered. Ordering Provider: Promise ESPARZA Report Released Date/Time: Sep 28, 2023 11:20 AM Reporting Lab: [facility] [place] [address] [address] Performing Lab: [facility] [facility] [address] [facility] [address] [facility] [place] [facility] LIPID PANEL FASTING CHOLESTEROL .TOTAL/CHOL ESTEROL IN HDL [MASS RATIO] IN SERUM OR PLASMA 3.7 01/17 Specimen Type: SERUM No comment entered. Ordering Provider: Promise ESPARZA Report Released Date/Time: Sep 28, 2023 11:20 AM Reporting Lab: [facility] [place] [facility] [address] [facility] [address] Performing Lab: [facility] [facility] [address] [facility] [address] [facility] [place] [facility] LIPID PANEL FASTING CHOLESTEROL IN HDL [MASS/VOLUM E] IN SERUM OR PLASMA 29 mg/dL 40 - 60 01/17 L Specimen Type: SERUM No comment entered. Ordering Provider: Promise ESPARZA Report Released Date/Time: Sep 28, 2023 11:20 AM Reporting Lab: [facility] [place] [facility] [address] [facility] [address] Performing Lab: [facility] [place] [facility] [address] [facility] [address] [facility] [place] [facility] VITAMIN D (25-OH) 25-HYDROXYV ITAMIN D3 [MASS/VOLUM E] IN SERUM OR PLASMA 40 ng/mL 20 - 50 01/17 Specimen Type: SERUM No comment entered. Ordering Provider: Promise ESPARZA Report Released Date/Time: Sep 28, 2023 11:20 AM Reporting Lab: [facility] [place] [facility] [address] [facility] [address] Performing Lab: [facility] [facility] [address] [facility] [address] [facility] [place] [facility] Vital Signs Combined list of inpatient and outpatient Vital Signs from Department of Defense and Veterans Affairs, ranging from 12 months to all on record, depending upon the facility. Vital Sign Value Date Comments Source SYSTOLIC BLOOD PRESSURE 128 06/03/19 25 13:27:59 [facility] [place] [facility] DIASTOLIC BLOOD PRESSURE 66 025 13:27:59 [facility] [place] [facility] PULSE OXIMETRY 98 06/03/2024 13:27:59 [facility] [place] [facility] WEIGHT 204 06/03/2024 13:27:59 [facility] [place] [facility] BMI 33kg/m2 06/03/2024 13:27:59 [facility] [place] [facility] PAIN 0 06/03/2024 13:27:59 [facility] [place] [facility] TEMPERATURE 98.2 06/03/2024 13:27:59 [facility] [place] [facility] PULSE 56 06/03/2024 13:27:59 [facility] [place] [facility] RESPIRATION 16 06/03/2024 13:27:59 [facility] [place] [facility] SYSTOLIC BLOOD PRESSURE 128 05/09/20 24 10:20:19 [facility] [place] [facility] DIASTOLIC BLOOD PRESSURE 62 10:20:19 [facility] [place] [facility] PULSE [...] [facility] [place] [facility] DIASTOLIC BLOOD PRESSURE 60 08:06:33 [facility] [place] [facility] PULSE [place] [facility] SYSTOLIC BLOOD PRESSURE 132 02/05/20 24 10:51:24 [facility] [place] [facility] DIASTOLIC [...] 02/05/2024 10:51:24 [facility] [place] [facility] Encounters Combined [...] [facility] [place] En[facility] [id number] 12/18 [facility] EYE EXAM ESTABLISH PATIENT [id number] Diagnos is: ICD-10- CM 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<br/ > ABIMBOLA FREGOSO 12/18 [facility] En[facility] [id number] 12/19 [facility] [place] FIT SPECTACLES MULTIFOCAL [id number] Diagnos is: ICD-10- CM Z46.0 Encount er for fit/adj st of spectac les and contact lenses< br/> JANICEMOLLY FOSTERWing A 12/19 [facility] [place] En[facility] [id number] 12/24 [facility] [place] [place] [facility] OFFICE O/P EST SF 10-19 MIN [id number] Diagnos is: ICD-10- CM 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
ZAID FLORES 09/06 /2023 [facility] En[facility] [id number] 02/06 [facility] OFFICE O/P EST MOD 30-39 MIN [id number] Diagnos is: ICD-10- CM M15.0 Primary general ized (osteo) arthrit is
AFTAB TEMPLE LY P 02/06 [facility] REPAIR & ADJUST SPECTACLES [id number] Diagnos is: ICD-10- CM Z46.0 Encount er for fit/adj st of spectac les and contact lenses< br/> ISELA DELEON 02/23 [facility] En[facility] [id number] 02/27 [facility] [place] En[facility] [id number] 02/27 [facility] [place] [place] [facility] OFFICE O/P EST LOW 20-29 MIN [id number] Diagnos is: ICD-10- CM I11.9 Hyperte nsive heart disease without heart failure
KIARA ESPARZA 03/02 [facility] En[facility] [id number] 03/03 [facility] Encounter [id number] 03/03 [facility] En[facility] [id number] 03/04 [facility] En[facility] [id number] 03/06 [facility] En[facility] [id number] 03/16 [facility] COLLJ & INTERPJ DATA EA 30 D [id number] Diagnos is: ICD-10- CM G47.30 Sleep apnea, unspeci fied
TAJ ROBBINS 03/16 [facility] [id number] 03/26 [facility] Out[facility] Encounter [id number] 03/26 [facility] [place] NA[place] MORE [id number] Diagnos is: ICD-10- CM L60.3 Nail dystrop hy
ZAID FLORES 04/09 [facility] En[facility] [id number] 05/11 [facility] Encounter [id number] 05/17 [facility] OFFICE O/P EST LOW 20 MIN [id number] Diagnos is: ICD-10- CM I11.9 Hyperte nsive heart disease without heart failure
KIARA ESPARZA 06/02 [facility] HC PRO PHONE CALL 21-30 MIN [id number] Diagnos is: ICD-10- CM E78.5 Hyperli pidemia , unspeci fied
FREDOKENNETHALFA A 06/09 [facility] En[facility] [id number] 06/11 [facility] DEBRIDE NAIL 6 [place] MORE [id number] Diagnos is: ICD-10- CM L60.3 Nail dystrop hy
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, left eye, severe stage<b r/> ABIMBOLA FREGOSO [facility] INTRM OPH EXAM EST PATIENT [id number] Diagnos is: ICD-10- CM H40.111 3 Primary open-an gle glaucom a, right eye, severe stage<b r/> ABIMBOLA FREGOSO [facility] Out[facility] Encounter [id number] [facility] Encounter [id number] 08/03 [facility] Outpatient Encounter [id number] 08/06 [facility] OFFICE O/P EST MOD 30 MIN [id number] Diagnos is: ICD-10- CM M15.0 Primary general ized (osteo) arthrit is
SEPTEMBERAFTAB LY P 08/06 [facility] MTMS BY PHARM EST 15 MIN [id number] Diagnos is: ICD-10- CM E78.2 Mixed hyperli pidemia
GDALFA MCCLELLAND A 08/16 [facility] TRIM NAIL(S) [id number] Diagnos is: ICD-10- CM L60.3 Nail dystrop hy
ZAID FLORES 08/25 [facility] OFFICE O/P EST LOW 20 MIN [id number] Diagnos is: ICD-10- CM I11.9 Hyperte nsive heart disease without heart failure
KIARA ESPARZA 09/27 [facility] En[facility] [id number] Kerry DALLAS 09/28 [facility] En[facility] [id number] 10/06 [facility] Encounter [id number] 10/22 [facility] TRIM NAIL(S) [id number] Diagnos is: ICD-10- CM L60.3 Nail dystrop hy
ZAID FLORES 11/01 [facility] En[facility] [id number] 11/25 [facility] En[facility] [id number] 12/09 [facility] En[facility] [id number] 12/09 [facility] [id number] 12/09 [facility] [id number] 12/20 [facility]counter [id number] 12/21 [facility] Encounter [id number] 01/05 [facility] TRIM NAIL(S) [id number] Diagnos is: ICD-10- CM L60.3 Nail dystrop hy
MARKZAIDDANIEL CONLEY 01/11 [facility] OFFICE O/P EST LOW 20 MIN [id number] Diagnos is: ICD-10- CM G47.30 Sleep apnea, unspeci fied
KIARA ESPARZA 01/24 [facility] En[facility] [id number] 02/04 [facility] Encounter [id number] 02/04 [facility] INTRM OPH EXAM EST PATIENT [id number] Diagnos is: ICD-10- CM L71.8 Other rosacea
ABIMBOLA FREGOSO 02/15 [facility] En[facility] [id number] 02/15 [facility]counter [id number] 02/24 [facility]counter [id number] 02/24 [facility]counter [id number] 03/07 [facility] En[facility] [id number] 1.03/21 [facility] NURSING ASSESSMENT /EVALUATN [id number] Diagnos is: ICD-10- CM R19.4 Change in bowel habit<b r/> Kerry DALLAS 03/22 [facility] OFFICE O/P EST LOW 20 MIN [id number] Diagnos is: ICD-10- CM K59.00 Constip ation, unspeci fied
JIE CHOWDHURY 03/22 [facility] TRIM NAIL(S) [id number] Diagnos is: ICD-10- CM L60.3 Nail dystrop hy
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, lumbar region< br/> Krishan HARPER 04/07 [facility] Outpatient Encounter [id number] 04/07 [facility] RPR&REFITG SPECT XCP APHAKIA [id number] Diagnos is: ICD-10- CM Z46.0 Encount er for fit/adj st of spectac les and contact lenses< br/> Charlie JOSÉ 04/20 [facility] Outpatient Encounter [id number] 04/20 [facility] Outpatient Encounter [id number] 04/21 [facility] Outpatient Encounter [id number] [facility] COLLJ & INTERPJ DATA EA 30 D [id number] Diagnos is: ICD-10- CM G47.30 Sleep apnea, unspeci fied
TAJ ROBBINS 05/06 [facility] HC PRO PHONE CALL 11-20 MIN [id number] Diagnos is: ICD-10- CM I25.10 Athscl heart disease of [place] coronar y artery w/o ang pctrs<b r/> LOKESH LONGH ANN 05/09 [facility] OFFICE O/P EST LOW 20 MIN [id number] Diagnos is: ICD-10- CM I11.9 Hyperte nsive heart disease without heart failure
KIARA ESPARZA 05/09 [facility] Outpatient Encounter [id number] 05/23 [facility] Out[facility] Encounter [id number] Kerry DALLAS 05/23 [facility] Out[facility] Encounter [id number] 1.05/27 [facility] MTMS BY PHARM ADDL 15 MIN [id number] Diagnos is: ICD-10- CM Z51.81 Encount er for therape utic drug level monitor ing<br/ > TAHMINA MARSHALL 05/30 [facility] Outpatient Encounter [id number] [facility] Outpatient Encounter [id number] [facility] OFFICE O/P EST LOW 20 MIN [id number] Diagnos is: ICD-10- CM D64.9 Anemia, unspeci fied
KIARA ESPARZA 06/03 [facility] [place] [place] [place] [facility] Outpatient Encounter [id number] 06/03 [facility] [place] [facility] Social History Combined list of available smoking, tobacco, and other social history from Department of Defense and Veterans Affairs facilities. Social History Type Response Date Comment Source Tobacco smoking status NHIS VA-TOBACCO FORMER USER 12/21/2023 [facility] [place] [place] [facility] History of tobacco use DC-TOBACCO QUIT 15 YRS OR MORE 12/21/2023 [facility] [facility] History of tobacco use DC-TOBACCO QUIT 15 YRS OR MORE 10/31/2022 [facility] [facility] History of tobacco use DC-TOBACCO QUIT 15 YRS OR MORE 09/17/2021 [facility] [facility] of [facility] [place] [facility] History of tobacco use DC-TOBACCO FORMER USER 05/12/2019 [facility] [place] [facility] History of tobacco use DC-TOBACCO FORMER USER 05/31/2018 [facility] [facility] History of tobacco use QUIT TOBACCO USE > 7 YEARS AGO 02/16/2017 quit 16 years ago [facility] [facility] History of tobacco use QUIT TOBACCO USE > 7 YEARS AGO 11/13/2015 . [facility] [place] [facility] History of tobacco use QUIT TOBACCO USE > 7 YEARS AGO 05/12/2013 quit 2002 [facility] [place] [facility] Plan of Care List of future care activities from Department of Veterans Affairs facilities. Additional future care activities may be listed in the Assessment and Plan section. Date/Time Care Activity Care Activity Detail Facili ty 06/07/2024 AMBULATORY - NONE AMBULATORY - NONE [facility] [place] [facility] 06/22/2024 AMBULATORY - MEDICINE AMBULATORY - MEDICI NE [facility] [place] [facility] 07/05/2024 AMBULATORY - MEDICINE AMBULATORY - MEDICI NE [facility] [place] [facility] 07/19/2024 AMBULATORY - MEDICINE AMBULATORY - MEDICI NE [facility] [place] [facility] 08/05/2024 AMBULATORY - MEDICINE AM[facility] 08/19/2024 AMBULATORY - MEDICINE [facility] [place] [facility] 09/13/2024 AMBULATORY - MEDICINE AM[facility]ULATORY [facility] 09/13/2024 AMBULATORY - MEDICINE [facility] 05/09/2024 Consult Order [facility] ARDIOLOGY Cons Risk Control Director's Choice [facility] 05/29/2024 Consult Order [facility] OLONOSCOPY DIAGNOSTIC Cons Risk Control Director's [facility] 06/03/2024 Consult Order PROSTHETICS REQU EST - COMPRESSION STOCKINGS Cons Risk Control Director's Choice [facility] Advance Directives List of completed, amended, or rescinded Advance Directives on record at Department of Veterans Affairs facilities. An actual copy of the Directive is not included. Date Advance Directive Provider Source 11/03/2022 ADVANCE DIRECTIVE LENORA CARCAMO [facility] 08/16/2020 ADVANCE DIRECTIVE EDMUND MORGAN [facility]
--- OUTSIDE RECORDS SUMMARY | 2024-06-07 13:33 | XMS_ITS | Encounter Summary ---
Author Name [facility] [place] [facility] [place] Address [address] [place] [address] Care Team Providers Care Crm Marketing Executive Name Role Phone KIARA ESPARZA Primary Care [...] Colbert's Name Patient's Relationship to Policy Colbert [facility] (WNR) MEDICARE [facility] (WNR) Jun 01, 2017 [id number] Krishan TATE PATIENT [facility] (WNR) MEDICARE [facility] (WNR) Jun 01, 2017 [id number] Krishan TATE PATIENT [facility] (WNR) MEDICARE ADVANTAGE [facility] (WNR) Jun 01, 2017 [id number] Krishan TATE PATIENT Selected Encounter This section includes the information on record at [place] for the Encounter. Date/Time Encounter Type Encounter Description Reason Provider Source May 30, 2024 08:50 AM MTMS BY DEVYN GRIFFITH 15 MIN TELEPHONE/VON [place]BL[place] ICD-10-CM Z51.81 Encounter for therapeutic drug level monitoring WALLY GRIFFIN I[facility] Encounter Template Text not used by [place] Assessments - Encounter Diagnoses This section includes the primary and secondary diagnoses documented for the Encounter. Date/Time Primary/Secondary Diagnosis Diagnosis Name Provider Source May 30, 2024 08:50 AM PRIMARY Encounter for therapeutic drug level monitoring [facility] May 30, 2024 08:50 AM [facility] (current[facility] use of anticoagulants [facility] Plan of Treatment: Future Appointments (+ 6 months) and Future Tests (+/- 45 days) The Plan of Treatment section includes future care activities for the patient from all [place] treatmentfacilities. This section includes future appointments and future orders which are active, pending or scheduled. Future Appointments This section includes appointments that were scheduled to occur 6 months from the date of the Encounter, up to a maximum of 20 appointments. The data comes from all [place] treatment facilities. Appointment Date/Time Appointment Type Appointme nt Facility Name Jun 03, 2024 01:30 PM AMBULATORY - MEDICINE [place] [facility] [place] [facility] Jun 07, 2024 10:30 AM AMBULATORY - NONE [facility] [place] [facility] Jun 22, 2024 10:50 AM AMBULATORY - MEDICINE [facility] [place] [facility] Jul 05, 2024 02:30 PM AMBULATORY - MEDICINE [facility] [place] [facility] Jul 19, 2024 01:00 PM AMBULATORY - MEDICINE VA C [...] 13, 2024 11:30 AM AMBULATORY - MEDICINE VA [...] of theEncounter. The data comes from all [place] treatment facilities. Test Date/Time Test Type Test Details Facility Name May 09, 2024 11:19 AM Consult Order [facility]-CARDIOLOGY Cons Belt Buckle Maker's Choice [facility] May 29, 2024 07:50 AM Consult Order [facility]-COLONOSCOPY DIAGNOSTIC Cons Belt Buckle Maker[facility] Jun 03, 2024 02:20 PM Consult Order PROSTHETIC S REQUEST - COMPRESSION STOCKINGS Cons Belt Buckle Maker's Choice [facility] Lab Results: +/- 30 days of the encounter This section includes the Chemistry and Hematology Lab Results on record with [place] for the patient. Radiology Reports and Pathology Reports are provided separately, in subsequent sections. Lab Results This section contains the Chemistry/Hematology Results that were resulted 30 days before or 30 daysafter the date of the Encounter. Date/Time Source Result Type Result - Unit Interpretation Reference Range Comment May 31, 2024 11:20 AM [facility] CREATININE (eGFR 2020) Specimen Type: SERUM No comment entered. Ordering Provider: SOLOMON ESPARZA Report Released Date/Time: May 27, 2024 04:53 PM Reporting Lab: [address] [address] Performing Lab: [address] [address] CREATININE, Serum 0.85 mg/dL 0.50-1.40 eGFR(CKD-EPI 2020) 84 mL/min >60 May 31, 2024 11:20 AM [facility] PT & INR (COUMADIN) Specimen Type: PLASMA No comment entered. Ordering Provider: SOLOMON ESPARZA F Report Released Date/Time: May 27, 2024 04:53 PM Reporting Lab: [address] [address] Performing Lab: [facility] [address] [address] INR 1.5 PROTIME 16.6 s H 10.0-13.1 May 31, 2024 11:20 AM [facility] LIVER FUNCTION Specimen Type: SERUM No comment entered. Ordering Provider: SOLOMON ESPARZA F Report Released Date/Time: May 27, 2024 04:53 PM Reporting Lab: [facility] [address] [address] Performing Lab: [address] [address] PROTEIN,TOTAL 5.8 g/dL L 6.0-8.3 ALBUMIN 3.7 g/dL 3.5-5.0 ALKALINE PHOSPHATASE 43 U/L 40-150 AST 11 U/L 5-34 ALT 13 U/L BILIRUBIN, TOTAL 0.5 mg/dL 0.2-1.2 May 31, 2024 11:20 AM [facility] CBC Specimen Type: BLOOD Comment: Verified by repeat analysis. Critical result acknowledged. CATARINO, [id number], 12:13, JCL Ordering Provider: SOLOMON ESPARZA Report Released Date/Time: May 27, 2024 04:53 PM Reporting Lab: [address] [address] Performing Lab: [address] [address] WBC 6.32 10*3/uL 4.50-11.00 RBC 3.26 10*6/uL L 4.23-5.66 HGB 7.5 g/dL LL 12.8-17 HCT 26.2 L 39.2-50.4 MCV 80.4 fL L 82-99 MCHC 28.6 g/dL L 30.8-35.1 PLT 309 10*3/uL 140-360 RDW-CV 19.1 H 12.0-16.0 MCH 23.0 pg L 26.2-32.6 May 02, 2024 09:24 AM [facility] LIVER FUNCTION Specimen Type: SERUM Comment: Hemolysis present analysis cannot be performed. Hemolysis present may falsly elevate Potassium Total and Direct Bili, Iron, AST, %Fe. Ordering Provider: SOLOMON ESPARZA F Report Released Date/Time: Apr 27, 2024 11:20 AM Reporting Lab: [address] [address] Performing Lab: [address] [address] PROTEIN,TOTAL 6.2 g/dL 6.0-8.3 ALBUMIN 3.8 g/dL 3.5-5.0 ALKALINE PHOSPHATASE 35 U/L L 40-150 AST 22 U/L 5-34 ALT 12 U/L BILIRUBIN, TOTAL comment mg/dL 0.2-1.2 May 02, 2024 09:24 AM [facility] BASIC METABOLIC PANEL (fasting) Specimen Type: SERUM Comment: Hemolysis present analysis cannot be performed. Hemolysis present may falsly elevate Potassium Total and Direct Bili, Iron, AST, %Fe. Ordering Provider: SOLOMON ESPARZA Report Released Date/Time: Apr 27, 2024 11:20 AM Reporting Lab: [address] [address] Performing Lab: [address] [address] UREA NITROGEN 24 mg/dL 7-25 GLUCOSE 93 mg/dL 65-100 SODIUM 140 mmol/L 135-145 POTASSIUM 5.1 mmol/L H 3.5-5.0 CHLORIDE 112 mmol/L H 100-110 CO2 19 meq/L L 20-30 CREATININE, Serum 0.87 mg/dL 0.50-1.40 eGFR(CKD-EPI 2020) 84 mL/min >60 May 02, 2024 09:24 AM [facility] HEMOGLOBIN A1C PANEL Specimen Type: [...] Apr 27, 2024 11:20 AM Reporting Lab: [address] [address] Performing Lab: [address] [address] HEMOGLOBIN A1C 5.6 4.0-5.6 May 02, 2024 09:24 AM [facility] LIPID PANEL FASTING Specimen Type: SERUM Comment: Hemolysis present analysis cannot be performed. Hemolysis present may falsly elevate Potassium Total and Direct Bili, Iron, AST, %Fe. Ordering Provider: SOLOMON ESPARZA Report Released Date/Time: Apr 27, 2024 11:20 AM Reporting Lab: [address] [address] Performing Lab: [address] [address] CHOLESTEROL 85 mg/dL TRIGLYCERIDE 130 mg/dL 0-150 LDL calculated 29 mg/dL 0-129 CHOL/HDL 2.8 HDL CHOLESTEROL 30 mg/dL L 40-60 Advance Directives: All historical and current Section Date Range: From patient's date of to the date document was created. This section includes ALL of a patient's completed or amended [place] Advance and Rescinded Directives. The entries below indicate that a directive exists for the patient, but an actual copy is not included with this document. The data comes from all [place] facilities. Date Advance Directives Provider Source Nov 03, 2022 ADVANCE DIRECTIVE LENORA CARCAMO [facility] Aug 16, 2020 ADVANCE DIRECTIVE EDMUND MORGAN [facility] Encounter Notes: All associated encounter notes This section contains the clinical notes associated to the Encounter. Date/Time Encounter Note(s) Provider Source May 30, 2024 08:50 AM PHARMACY MEDICATIO N MGT CONSULT: LOCAL TITLE: CONSULT REPORT/ANTICOAGULATION CLINIC STANDARD TITLE: PHARMACY MEDICATION MGT CONSULT DATE OF NOTE: MAY 30, 2024@08:50 ENTRY DATE: MAY 30, 2024@08:50:36 AUTHOR: KATHLEEN GRIFFIN COSIGNER: URGENCY: STATUS: COMPLETED Initial Note: Anticoagulation DOAC Agent Progress Note Reason for visit: Initial Education for Apixaban/Eliquis Indication: atrial fibrillation Start Date: 05/29/24 Expected Duration: Indefinite Referring Provider: Del Patient Contact: Home: Patient has given permission to leave anticoagulation message on answering machine or with person listed. Subjective: Spoke with pt/ on speaker phone to review use of apixaban. Pt notes he was started on apixaban at time of hospital d/c (received a 30 day supply at time of d/c). Cleared by GI/Cardiology to start on apixaban at time of d/c despite concern for anemia (Hgb was 4.2g/dL upon admission with 3 PRBC units provided). H/H increased during hospital stay. Pt had endoscopy/colonoscopy during admission with several areas cauterized. Pt still in need of follow-up (additional colonoscopy needed). Repeat labs ordered for PCP visit this week. Pt advised to remain on aspirin. Avoids NSAIDs, no routine EtOH, may have upcoming procedure. Reviewed follow-up and passive monitoring. Per hospital notes: 88-year-old male with past medical history of coronary artery disease status post stents, hypertension, hyperlipidemia, gastric ulcer who presents to the emergency department with ROCK and angina found to be severely anemic admitted for management of symptomatic anemia with concern for upper GI bleed secondary to gastric ulcer seen by GI s/p EGD on 05/25 which showed no gastric ulcers and 1 small angiectasia in in his stomach that not explain patient's bleed. Patient received 3 blood transfusions during this admission. 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 His hemoglobin currently remained stable. Course complicated by A-fib with RVR and patient was started on metoprolol. It was later found out that patient takes metoprolol 50 mg twice daily which was not ordered on admission probably because patient was GI bleeding. We resumed 25 XL which patient tolerated well and we will discharge him back on his home dose. Upon discussion with the GI team and subsequently shared decision making with the patient (Anaya serna his and Rosina step daughter over the phone) and we discussed her some benefit of stroke versus GI bleed and decision was made to start Eliquis to decrease patient's risk of stroke as patient has [id number] score of 3 but on the other hand he has a moderate risk of bleeding with a has bled score of 2. Patient aware to follow-up closely with his PCP for repeat CBC within 3 to 5 days of his discharge. If there are concerns for recurrent or further GI bleeding per GI it is worth getting CT enterography as he might have AVMs in his small bowel. Labs: Patient reports outside Hgb results: Date: May 27, 2024 Results: 7.4 Location: Outside Healthcare Provider Patient reports outside HCT results: Date: May 27, 2024 Results: 25 Location: Outside Healthcare Provider Patient reports outside PLT results: Date: May 27, 2024 Results: 256 Location: Outside Healthcare Provider Patient reports outside SCR results: Date: May 27, 2024 Results: 1.12 Location: Outside Healthcare Provider Patient reports outside BUN results: Date: May 27, 2024 Results: 16 Location: Outside Healthcare Provider Patient reports outside ALT results: Date: May 27, 2024 Results: 9 Location: Outside Healthcare Provider Patient reports outside AST results: Date: May 27, 2024 Results: 11 Location: Outside Healthcare Provider CRCL IBW: 61.4 mL/min (Creat:0.87 05/02/24) CRCL ACT: 68.56 mL/min CRCL ADJ: 61.4 mL/min (05/02/24) LFTs WNL Vitals: Weight (BMI): 204.9 lb [92.94 kg] (05/09/2024 10:20) BMI: 33.1 Height: 66 in [167.6 cm] (05/09/2024 10:20) Active Outpatient Medications (including Supplies): AMMONIUM LACTATE 12% LOTION APPLY MODERATE AMOUNT ACTIVE TOPICALLY ONCE DAILY FOR DRY IRRITATED SKIN Indication: FOR DRY SKIN CAPSAICIN 0.025% CREAM APPLY A THIN LAYER TOPICALLY TWICE ACTIVE DAILY NEEDED FOR KNEES Indication: FOR LOCALIZED PAIN CARBOXYMETHYLCELLULOSE NA 0.5% OPH SOLN INSTILL 1 DROP ACTIVE INTO EACH EYE FOUR TIMES DAILY NEEDED FOR DRYNESS Indication: FOR DRY EYE EYELID CLEANSER,EYE SCRUB PAD USE 1 PAD TOPICALLY ONCE ACTIVE DAILY Indication: BLEPHARITIS HYLAN G-F20 48MG/6ML INJ SYRINGE 6ML INJECT 48MG/6ML ACTIVE INTRA-ARTICULAR NEEDED DIRECTED BY PROVIDER Indication: FOR OSTEOARTHRITIS OF THE KNEE HYPROMELLOSE 0.3% OPH GEL APPLY 1 TO 2 DROPS INTO EACH EYE ACTIVE AT BEDTIME Indication: FOR DRY EYE LACTULOSE 10GM/15ML ORAL SOLN TAKE 30 ML (2 TABLESPOONS) ACTIVE BY MOUTH TWICE DAILY NEEDED Indication: FOR CONSTIPATION LATANOPROST 0.005% OPH SOLN INSTILL 1 DROP INTO EACH EYE ACTIVE AT BEDTIME Indication: FOR INCREASED PRESSURE IN THE EYE LIDOCAINE 5% PATCH APPLY 1 PATCH TOPICALLY ONCE DAILY ACTIVE (LEAVE PATCH ON FOR 12 HOURS THEN LEAVE OFF FOR 12 HOURS) Indication: FOR NERVE PAIN LISINOPRIL 10MG TAB TAKE ONE TABLET BY MOUTH ONCE DAILY TO ACTIVE CONTROL BLOOD PRESSURE METOPROLOL TARTRATE 50MG TAB TAKE ONE TABLET BY MOUTH ACTIVE TWICE DAILY FOR BLOOD PRESSURE/HEART OMEPRAZOLE 20MG EC CAP TAKE ONE CAPSULE BY MOUTH EVERY ACTIVE MORNING 30 MINUTES BEFORE BREAKFAST POLYETHYLENE GLYCOL 3350 ORAL PWDR TAKE 17 GRAMS(FILL CAP ACTIVE TO 17GM LINE) BY MOUTH ONCE DAILY [MIX WITH 4 TO 8OZ. OF BEVERAGE] Indication: FOR CONSTIPATION ROSUVASTATIN CA 40MG TAB TAKE ONE TABLET BY MOUTH ONCE ACTIVE DAILY FOR CHOLESTEROL Indication: FOR HIGH CHOLESTEROL TAMSULOSIN HCL 0.4MG CAP TAKE ONE CAPSULE BY MOUTH ONCE ACTIVE DAILY Indication: FOR ENLARGED PROSTATE Non-VA ACETAMINOPHEN TAB 1300 BY MOUTH EVERY MORNING AND ACTIVE 650MG BY MOUTH EVERY EVENING Non-VA ASPIRIN 81MG EC TAB 81MG BY MOUTH DAILY ACTIVE Non-VA MULTIVITAMIN/MINERALS CAP/TAB 1 TABLET BY MOUTH ACTIVE EVERY MORNING + ferrous sulfate Interacting Meds: -- aspirin: increased risk of bleeding; pt with hx TIA per verbal report Apixaban: The patient was provided with the following education: -- Purpose of Apixaban -- Signs and symptoms of stroke and thrombosis and what to do should they occur -- Medication Identification -- Dosing recommendations -Apixaban may be taken with or without food -Apixaban may be crushed -- Storage recommendations -Store medication in a dry area at room temperature -- Recommendations for missed doses or overdosage -- Importance of medication compliance and avoiding lapses in therapy to minimize the risk of stroke -- Monitor for signs/symptoms of bleeding, including: -[place] or brown urine -Red or black tarry stools -Coughing up blood -Vomiting blood or vomit that looks like coffee grounds -Reoccurring nosebleeds -Unusual bleeding from the gums -Bleeding from a cut that does not stop -Headaches, dizziness or weakness -- Contact this clinic or provider if patient experiences and serious or intolerable adverse effects -- Review risks associated with falling -- Which medications to avoid due to drug interactions -- Importance of notifying all providers of any medication patient is taking or changes that may occur -- What to do if patient wants to discontinue therapy -- Contact this clinic or provider if scheduled for a procedure -- Contact number for the [facility] provided Assessment/Plan: Initiate : Apixaban 5mg twice daily Time Spent: 25 mins Next Appt: Jun 4 weeks WILL ASK [facility] MANAGER REVENUE TO PLEASE MAIL APIXABAN HANDOUT Next PCP Appt: Jun EDUCATION Provided with verbal instructions: Yes Provided with written instructions: No Barriers to learning: No Readiness to learn: Yes Specific dose directions reviewed: Yes Opportunity for questions/discussion: Yes Reports understanding of instructions: Yes Further learning needs: No /elizabeth/ Kathleen Griffin PharmD, [facility] Clinical In Service Education Teacher Signed: 05/30/2024 09:30 Receipt Acknowledged By: 05/30/2024 09:35 /elizabeth/ MERCY CODY CPHT Clinical Treer KATHLEEN GRIFFIN OC
--- OUTSIDE RECORDS SUMMARY | 2024-06-07 13:33 | XMS_ITS | Encounter Summary ---
Author Name [facility] [place] [facility] [place] Address [address] [place] [address] Care Team Providers Care Analysis Specialist Name Role Phone LUIS F CASH Primary [...] Colbert's Name Patient's Relationship to Policy Colbert [facility] (WNR) MEDICARE ADVANTAGE [facility] (WNR) Jun 01, 2017 [id number] Krishan TATE PATIENT [facility] (WNR) MEDICARE ADVANTAGE [facility] (WNR) Jun 01, 2017 [id number] [phone] Krishan TATE PATIENT [facility] (WNR) MEDICARE ADVANTAGE [facility] (WNR) Jun 01, 2017 [id number] [phone] Krishan TATE PATIENT Selected Encounter This section includes the information on record at [place] for the Encounter. Date/Time Encounter Type Encounter Description Reason Pro vider Source May 30, 2024 02:10 PM Outpatient Encounter PM&RS PHYSICIAN IHE Encounter Template Text not used by [place] Plan of Treatment: Future Appointments (+ 6 months) and Future Tests (+/- 45 days) The Plan of Treatment section includes future care activities for the patient [facility] [place] [facility] This section includes future appointments and future orders which are active, pending or scheduled. Future Appointments This section includes appointments that were scheduled to occur 6 months from the date of the Encounter, up to a maximum of 20 appointments. The data comes from all [facility]. Appointment Date/Time Appointment Type Appointme nt Facility Name Jun 03, 2024 01:30 PM AMBULATORY - MEDICINE [place] [facility] [place] [facility] Jun 07, 2024 10:30 AM AMBULATORY - NONE [facility] [place] [facility] Jun 22, 2024 10:50 AM AMBULATORY - MEDICINE [facility] [place] [facility] Jul 05, 2024 02:30 PM AMBULATORY - MEDICINE [facility] [place] [facility] Jul 19, 2024 01:00 PM AMBULATORY - MEDICINE [facility] [place] [facility] Aug 05, 2024 11:00 AM AMBULATORY - MEDICINE [facility] [place] [facility] Aug 19, 2024 11:00 AM AMBULATORY - MEDICINE [facility] [place] [facility] Sep 13, 2024 11:00 AM AMBULATORY - MEDICINE [facility] [place] [facility] Sep 13, 2024 11:30 AM AMBULATORY - MEDICINE [place] [facility] [place] [facility] Active, Pending, and Scheduled Orders This section includes a listing of several types of active, pending, and scheduled orders, including clinic medications orders, diagnostic test orders, procedure orders and consult orders; where the start date of the order is 45 days before the date of the Encounter or 45 days after the date of theEncounter. The data comes from all [facility]. Test Date/Time Test Type Test Details Facility Name May 09, 2024 11:19 AM Consult Order COMMUNITY CARE-CARDIOLOGY Cons Inspector Elevators's Choice [facility] [place] [facility] May 29, 2024 07:50 AM Consult Order COMMUNITY CARE-COLONOSCOPY DIAGNOSTIC Cons Inspector Elevators's Choice [facility] [place] [facility] Jun 03, 2024 02:20 PM Consult Order PROSTHETIC S REQUEST - COMPRESSION STOCKINGS Cons Inspector Elevators's Choice [facility] Lab Results: +/- 30 days of [...] Range Comment May 31, 2024 11:20 AM [facility] PT & INR (COUMADIN) Specimen Type: PLASMA No comment entered. Ordering Provider: SOLOMON CASH F Report Released Date/Time: May 27, 2024 04:53 PM Reporting Lab: [facility] [address] [facility] [address] Performing Lab: [facility] [address] [address] INR 1.5 PROTIME 16.6 s H 10.0-13.1 May 31, 2024 11:20 AM [facility] CREATININE (eGFR 2020) Specimen Type: SERUM No comment entered. Ordering Provider: SOLOMON CASH F Report Released Date/Time: May 27, 2024 04:53 PM Reporting Lab: [facility] [address] [address] Performing Lab: [facility] [address] [address] CREATININE, Serum 0.85 mg/dL 0.50-1.40 eGFR(CKD-EPI 2020) 84 mL/min >60 May 31, 2024 11:20 AM [facility] LIVER FUNCTION Specimen Type: SERUM No comment entered. Ordering Provider: SOLOMON CASH F Report Released Date/Time: May 27, 2024 04:53 PM Reporting Lab: [facility] [address] [address] Performing Lab: [address] [address] PROTEIN,TOTAL 5.8 g/dL L 6.0-8.3 ALBUMIN 3.7 g/dL 3.5-5.0 ALKALINE PHOSPHATASE 43 U/L 40-150 AST 11 U/L 5-34 ALT 13 U/L BILIRUBIN, TOTAL 0.5 mg/dL 0.2-1.2 May 31, 2024 11:20 AM [facility] CBC Specimen Type: BLOOD Comment: Verified by repeat analysis. Critical result acknowledged. CATARINO, [id number], 12:13, JCL Ordering Provider: SOLOMON CASH Report Released Date/Time: May 27, 2024 04:53 PM Reporting Lab: [address] [address] Performing Lab: [address] [address] WBC 6.32 10*3/uL 4.50-11.00 RBC 3.26 10*6/uL L 4.23-5.66 HGB 7.5 g/dL LL 12.8-17 HCT 26.2 L 39.2-50.4 MCV 80.4 fL L 82-99 MCHC 28.6 g/dL L 30.8-35.1 PLT 309 10*3/uL 140-360 RDW-CV 19.1 H 12.0-16.0 MCH 23.0 pg L 26.2-32.6 May 02, 2024 09:24 AM [facility] HEMOGLOBIN A1C PANEL Specimen Type: BLOOD Comment: [...] Apr 27, 2024 11:20 AM Reporting Lab: [address] [address] Performing Lab: [address] [address] HEMOGLOBIN A1C 5.6 4.0-5.6 May 02, 2024 09:24 AM [facility] LIVER FUNCTION Specimen Type: SERUM Comment: Hemolysis present analysis cannot be performed. Hemolysis present may falsly elevate Potassium Total and Direct Bili, Iron, AST, %Fe. Ordering Provider: SOLOMON CASH F Report Released Date/Time: Apr 27, 2024 11:20 AM Reporting Lab: [address] [address] Performing Lab: [address] [address] PROTEIN,TOTAL 6.2 g/dL 6.0-8.3 ALBUMIN 3.8 g/dL 3.5-5.0 ALKALINE PHOSPHATASE 35 U/L L 40-150 AST 22 U/L 5-34 ALT 12 U/L BILIRUBIN, TOTAL comment mg/dL 0.2-1.2 May 02, 2024 09:24 AM [facility] BASIC METABOLIC PANEL (fasting) Specimen Type: SERUM Comment: Hemolysis present analysis cannot be performed. Hemolysis present may falsly elevate Potassium Total and Direct Bili, Iron, AST, %Fe. Ordering Provider: SOLOMON CASH Report Released Date/Time: Apr 27, 2024 11:20 AM Reporting Lab: [address] [address] Performing Lab: [address] [address] UREA NITROGEN 24 mg/dL 7-25 GLUCOSE 93 mg/dL 65-100 SODIUM 140 mmol/L 135-145 POTASSIUM 5.1 mmol/L H 3.5-5.0 CHLORIDE 112 mmol/L H 100-110 CO2 19 meq/L L 20-30 CREATININE, Serum 0.87 mg/dL 0.50-1.40 eGFR(CKD-EPI 2020) 84 mL/min >60 May 02, 2024 09:24 AM [facility] LIPID PANEL FASTING Specimen Type: SERUM Comment: Hemolysis present analysis cannot be performed. Hemolysis present may falsly elevate Potassium Total and Direct Bili, Iron, AST, %Fe. Ordering Provider: SOLOMON CASH Report Released Date/Time: Apr 27, 2024 11:20 AM Reporting Lab: [facility] [address] [address] Performing Lab: [facility] [address] [address] CHOLESTEROL 85 mg/dL TRIGLYCERIDE 130 mg/dL 0-150 LDL calculated 29 mg/dL 0-129 CHOL/HDL 2.8 HDL CHOLESTEROL 30 mg/dL L 40-60 Social History: Smoking Status [...] took place. Date/Time Current Smoking Status Comment [facility] Dec 21, 2023 11:40 AM [place]-TOBACCO QUIT 15 YRS OR MORE [facility] Tobacco Use History This section includes a history of the smoking, or tobacco-related health factors, that were collected on or before the date of the Encounter. The data comes from the [place] facility where the Encounter took place. Date/Time Smoking Status/Tobac co Use Comment [facility] Dec 21, 2023 11:40 AM [place]-TOBACCO QUIT 15 YRS OR MORE [facility] [place] [facility] Oct 31, 2022 11:30 AM VA-TOBACCO FORMER USER [facility] [place] [facility] Oct 31, 2022 11:30 AM VA-TOBACCO QUIT 15 YRS OR MORE [facility] [place] [facility] Sep 17, 2021 03:00 PM VA-TOBACCO FORMER USER [facility] [place] [facility] Sep 17, 2021 03:00 PM VA-TOBACCO QUIT 15 YRS OR MORE [facility] [place] [facility] Aug 15, 2020 10:00 AM VA-TOBACCO FORMER USER [facility] [place] [facility] Aug 15, 2020 10:00 AM VA-TOBACCO QUIT 15 YRS OR MORE [facility] [place] [facility] May 12, 2019 03:07 PM VA-TOBACCO FORMER USER [facility] [place] [facility] May 12, 2019 03:07 PM VA-TOBACCO QUIT 15 YRS OR MORE [facility] May 31, 2018 01:08 PM VA-TOBACCO FORMER USER [facility] [place] [facility] May 31, 2018 01:08 PM VA-TOBACCO QUIT 15 YRS OR MORE [facility] [place] [facility] Feb 16, 2017 01:33 PM QUIT TOBACCO USE > 7 YEARS AGO quit 16 years ago [facility] Nov 13, 2015 03:48 PM QUIT TOBACCO USE > 7 YEARS AGO . [facility] May 12, 2013 12:49 PM QUIT TOBACCO USE > 7 YEARS AGO quit 2001 [facility] Advance Directives: All historical and [...] Nov 03, 2022 ADVANCE DIRECTIVE [facility] Aug 16, 2020 ADVANCE DIRECTIVE EDMUND MORGAN [facility] Encounter Notes: All associated encounter notes This section contains the clinical notes associated to the Encounter. Date/Time Encounter Note(s) Provider Source May 30, 2024 02:10 PM NURSING TELEPHONE ENCOUNTER NOTE: LOCAL TITLE: NURSING/OUTPATIENT TELEPHONE FOLLOW UP STANDARD TITLE: NURSING TELEPHONE ENCOUNTER NOTE DATE OF NOTE: MAY 30, 2024@14:10 ENTRY DATE: MAY 30, 2024@14:10:20 AUTHOR: CHLOÉ ROSENBERG EXP COSIGNER: URGENCY: STATUS: COMPLETED NURSING/OUTPATIENT TELEPHONE FOLLOW UP Has ADDENDA Brethren left a voicemail that he needs to reschedule appt schedule 06/03, appt cancelled, will ask [facility] to assist in rescheduling, thank you. /elizabeth/ Chloé Rosenberg RN Med Rehab Signed: 05/30/2024 14:12 Receipt Acknowledged By: 06/02/2024 11:44 /elizabeth/ NATALI SMITH POLISH MAKER 05/31/2024 ADDENDUM STATUS: COMPLETED I called him, informed of stable labs. We meet on thursday. /elizabeth/ Luis F Cash PA-C STAFF PHYSICIAN STITCHER SET UP OPERATOR AUT[employer] Signed: 05/31/2024 17:01 06/02/2024 ADDENDUM STATUS: COMPLETED scheduled 07/19/2024 /elizabeth/ NATALI SMITH POLISH MAKER Signed: 06/02/2024 11:45 CHLOÉ ROSENBERG [facility]
--- OUTSIDE RECORDS SUMMARY | 2024-06-07 13:33 | XMS_ITS ---
Author Name [facility] [place] Organization [facility] [place] Address [address] [place] [address] Care Team Providers Care Plant Operations Vice President Name Role Phone KIARA CASH Primary Care [...] Name Patient's Relationship to Policy Colbert KYLIE [facility] (WNR) MEDICARE ADVANTAGE [facility] (WNR) Jun 01, 2017 [id number] [phone] Krishan TATE PATIENT [facility] (WNR) MEDICARE ADVANTAGE [facility] (WNR) Jun 01, 2017 [id number] [phone] Krishan TATE PATIENT [facility] (WNR) MEDICARE ADVANTAGE [facility] (WNR) Jun 01, 2017 [id number] [phone] Krishan TATE PATIENT Selected Encounter This section includes the information on record at [place] for the Encounter. Date/Time Encounter Type Encounter Description Reason Provider Source May 23, 2024 10:17 AM Outpatient Encounter PRIMARY CARE/MEDICINE JANES DALLAS Avis Encounter Template Text not used by [place] Plan of Treatment: Future Appointments (+ 6 months) and Future Tests (+/- 45 days) The Plan of Treatment section includes future care activities for the patient from [facility] [place] [facility] This section includes future appointments and future orders which are active, pending or scheduled. Future Appointments This section includes appointments that were scheduled to occur 6 months from the date of the Encounter, up to a maximum of 20 appointments. The data comes from all [facility]. Appointment Date/Time Appointment Type Appointme nt Facility Name Jun 03, 2024 01:30 PM AMBULATORY - MEDICINE [place] [facility] [place] [facility] Jun 07, 2024 10:30 AM AMBULATORY - NONE [place] [facility] [place] [facility] Jun 22, 2024 10:50 AM AMBULATORY - MEDICINE [place] [facility] [place] [facility] Jul 05, 2024 02:30 PM AMBULATORY - MEDICINE [place] [facility] [place] [facility] Jul 19, 2024 01:00 PM AMBULATORY - MEDICINE [place] [facility] [place] [facility] Aug 05, 2024 11:00 AM AMBULATORY - MEDICINE [place] [facility] [place] [facility] Aug 19, 2024 11:00 AM AMBULATORY - MEDICINE [place] [facility] [place] [facility] Sep 13, 2024 11:00 AM AMBULATORY - MEDICINE [place] [facility] [place] [facility] Sep 13, 2024 11:30 AM AMBULATORY - MEDICINE [place] [facility] [place] [facility] Active, Pending, and Scheduled Orders This section includes a listing of several types of active, pending, and scheduled orders, including clinic medications orders, diagnostic test orders, procedure orders and consult orders; where the start date of the order is 45 days before the date of the Encounter or 45 days after the date of theEncounter. The data comes from all [facility]. Test Date/Time Test Type Test Details Facility Name May 09, 2024 11:19 AM Consult Order COMMUNITY CARE-CARDIOLOGY Cons Vice President Of Advertising's Choice [facility] [place] [facility] May 29, 2024 07:50 AM Consult Order COMMUNITY CARE-COLONOSCOPY DIAGNOSTIC Cons Vice President Of Advertising's Choice [facility] Jun 03, 2024 02:20 PM Consult Order PROSTHETIC S REQUEST - COMPRESSION STOCKINGS Cons Vice President Of Advertising's Choice [facility] Lab Results: +/- 30 days of the [...] Range Comment May 31, 2024 11:20 AM [facility] CREATININE (eGFR 2020) Specimen Type: SERUM No comment entered. Ordering Provider: SOLOMON CASH F Report Released Date/Time: May 27, 2024 04:53 PM Reporting Lab: [facility] [address] [facility] [address] Performing Lab: [facility] [address] [address] CREATININE, Serum 0.85 mg/dL 0.50-1.40 eGFR(CKD-EPI 2020) 84 mL/min >60 May 31, 2024 11:20 AM [facility] PT & INR (COUMADIN) Specimen Type: PLASMA No comment entered. Ordering Provider: SOLOMON CASH F Report Released Date/Time: May 27, 2024 04:53 PM Reporting Lab: [facility] [address] [facility] [address] Performing Lab: [facility] [address] INR 1.5 PROTIME 16.6 s H 10.0-13.1 May 31, 2024 11:20 AM [facility] LIVER FUNCTION Specimen Type: SERUM No comment entered. Ordering Provider: SOLOMON CASH F Report Released Date/Time: May 27, 2024 04:53 PM Reporting Lab: [address] [address] Performing Lab: [address] [address] PROTEIN,TOTAL 5.8 g/dL L 6.0-8.3 ALBUMIN 3.7 g/dL 3.5-5.0 ALKALINE PHOSPHATASE 43 U/L 40-150 AST 11 U/L 5-34 ALT 13 U/L BILIRUBIN, TOTAL 0.5 mg/dL 0.2-1.2 May 31, 2024 11:20 AM [facility] CBC Specimen Type: BLOOD Comment: Verified by repeat analysis. Critical result acknowledged. CATARINO, [id number], 12:13, JC Ordering Provider: SOLOMON CASH Report Released Date/Time: May 27, 2024 04:53 PM Reporting Lab: [address] [address] Performing Lab: [address] [address] WBC 6.32 10*3/uL 4.50-11.00 RBC 3.26 10*6/uL L 4.23-5.66 HGB 7.5 g/dL LL 12.8-17 HCT 26.2 L 39.2-50.4 MCV 80.4 fL L 82-99 MCHC 28.6 g/dL L 30.8-35.1 PLT 309 10*3/uL 140-360 RDW-CV 19.1 H 12.0-16.0 MCH 23.0 pg L 26.2-32.6 May 02, 2024 09:24 AM [facility] LIVER FUNCTION Specimen Type: SERUM Comment: Hemolysis present analysis cannot be performed. Hemolysis present may falsly elevate Potassium Total and Direct Bili, Iron, AST, %Fe. Ordering Provider: SOLOMON CASH Report Released Date/Time: Apr 27, 2024 11:20 AM Reporting Lab: [address] [address] Performing Lab: [address] [place] [address] PROTEIN,TOTAL 6.2 g/dL 6.0-8.3 ALBUMIN 3.8 g/dL 3.5-5.0 ALKALINE PHOSPHATASE 35 U/L L 40-150 AST 22 U/L 5-34 ALT 12 U/L BILIRUBIN, TOTAL comment mg/dL 0.2-1.2 May 02, 2024 09:24 AM [facility] BASIC METABOLIC PANEL (fasting) Specimen Type: SERUM Comment: Hemolysis present analysis cannot be performed. Hemolysis present may falsly elevate Potassium Total and Direct Bili, Iron, AST, %Fe. Ordering Provider: SOLOMON CASH F Report Released Date/Time: Apr 27, 2024 11:20 AM Reporting Lab: [address] [address] Performing Lab: [address] [address] UREA NITROGEN 24 mg/dL 7-25 GLUCOSE 93 mg/dL 65-100 SODIUM 140 mmol/L 135-145 POTASSIUM 5.1 mmol/L H 3.5-5.0 CHLORIDE 112 mmol/L H 100-110 CO2 19 meq/L L 20-30 CREATININE, Serum 0.87 mg/dL 0.50-1.40 eGFR(CKD-EPI 2020) 84 mL/min >60 May 02, 2024 09:24 AM [facility] HEMOGLOBIN A1C PANEL Specimen Type: BLOOD Comment: [...] Apr 27, 2024 11:20 AM Reporting Lab: [address] [address] Performing Lab: [address] [address] HEMOGLOBIN A1C 5.6 4.0-5.6 May 02, 2024 09:24 AM [facility] LIPID PANEL FASTING Specimen Type: SERUM Comment: Hemolysis present analysis cannot be performed. Hemolysis present may falsly elevate Potassium Total and Direct Bili, Iron, AST, %Fe. Ordering Provider: SOLOMON CASH Report Released Date/Time: Apr 27, 2024 11:20 AM Reporting Lab: [facility] [address] [address] Performing Lab: [facility] [address] [facility] [address] CHOLESTEROL 85 mg/dL TRIGLYCERIDE 130 mg/dL 0-150 [...] place. Date/Time Current Smoking Status Comment [facility] Dec 21, 2023 11:40 AM VA-TOBACCO FORMER USER [facility] Tobacco Use History This section includes a history of the smoking, or tobacco-related health factors, that were collected on or before the date of the Encounter. The data comes from the [place] facility where the Encounter took place. Date/Time Smoking Status/Tobac co Use Comment Facility Dec 21, 2023 11:40 AM VA-TOBACCO QUIT 15 YRS OR MORE [place] [facility] [place] [facility] Oct 31, 2022 11:30 AM VA-TOBACCO FORMER USER [place] [facility] [place] [facility] Oct 31, 2022 11:30 AM VA-TOBACCO QUIT 15 YRS OR MORE [place] [facility] [place] [facility] Sep 17, 2021 03:00 PM VA-TOBACCO FORMER USER [place] [facility] [place] [facility] Sep 17, 2021 03:00 PM VA-TOBACCO QUIT 15 YRS OR MORE [place] [facility] [place] [facility] Aug 15, 2020 10:00 AM VA-TOBACCO FORMER USER [place] [facility] [place] [facility] Aug 15, 2020 10:00 AM VA-TOBACCO QUIT 15 YRS OR MORE [place] [facility] [place] [facility] May 12, 2019 03:07 PM VA-TOBACCO FORMER USER [place] [facility] [place] [facility] May 12, 2019 03:07 PM VA-TOBACCO QUIT 15 YRS OR MORE [facility] May 31, 2018 01:08 PM VA-TOBACCO FOR[facility] May 31, 2018 01:08 PM VA-TOBACCO QUIT 15 YRS OR MORE [facility] Feb 16, 2017 01:33 PM QUIT TOBACCO USE > 7 YEARS AGO quit 16 years ago [facility] Nov 13, 2015 03:48 PM QUIT TOBACCO USE > 7 YEARS AGO . [facility] May 12, 2013 12:49 PM QUIT TOBACCO USE > 7 YEARS AGO quit 2001 [facility] Advance Directives: All historical and [...] Nov 03, 2022 ADVANCE DIRECTIVE LENORA CARCAMO [facility] Aug 16, 2020 ADVANCE DIRECTIVE EDMUND MORGAN [facility] Encounter Notes: All associated encounter notes This section contains the clinical notes associated to the Encounter. Date/Time Encounter Note(s) Provider Source May 27, 2024 04:52 PM ADDENDUM: LOCAL TITLE: Addendum STANDARD TITLE: ADDENDUM DATE OF NOTE: MAY 27, 2024@16:52:02 ENTRY DATE: MAY 27, 2024@16:52:02 AUTHOR: KIARA CASH COSIGNER: URGENCY: STATUS: COMPLETED teams from [employer] who works here.: Rosina Monreal 3:08 PM Hi there. I hope your holiday was better than Fermin's. He is being discharged form [facility] now, but feeling better with 3 ux of blood on board and his spirits are up. Discharge hbg is 7.4. 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 They are suspecting some in small bowel, but letting it ride for bit so he needs to seen by primary care and have CBC drawn on Thursday, maybe Thursday? They also are starting him on Eliquis due to a 12 hour stent of having a fib, (currently in NSR). mom has an echo on thursday at 11 so if possible would like to be able to work around that. How can I get this appt booked or lab draw set up? Labs ordered. Lab is a walk in 8430 busin... by Kiara Cash 4:51 PM Kiara Cash Labs ordered. Lab is a walk in 8-430 business days. Pharmacy night not need labs to provide the Eliquis, so wait until you hear from pharmacy before you send him for lab. I'll get Rosanna Silva to book with me. I'll probably have him do lab when he sees me anyway to check for an acute drop in H/H.. Please add her to comm auth and book him with me early next week. Overbook as they see fit. /elizabeth/ Kiara Cash PA-C STAFF PHYSICIAN CLINICAL BIOCHEMICAL GENETICIST Signed: 05/27/2024 16:53 Receipt Acknowledged By: 05/30/2024 07:55 /elizabeth/ JANES DALLAS, KIAH REGISTERED NURSE 06/06/2024 12:19 /elizabeth/ ROSANNA SILVA ELIER ====== --- Original Document --- 05/23/24 PRIMARY CARE SECURE MESSAGING: ------Original Message ------- Sent: 05/23/2024 10:17 AM ET From: JANES DALLAS To: CHAR TATE Subject: General:[place] PHONE # Good Morning, Please report any ER visits within 72 hours to . Happy Holidays Thank you for your service, KIAH Phillips - PACT Content Administrator /es/ JANES DALLAS RN REGISTERED NURSE Signed: 05/23/2024 10:17 ISAIASKIARA Chapman [place] [facility] [place] [facility] May 23, 2024 10:17 AM PRIMARY CARE SECURE MESSAGING: LOCAL TITLE: PRIMARY CARE SECURE MESSAGING STANDARD TITLE: PRIMARY CARE SECURE MESSAGING DATE OF NOTE: MAY 23, 2024@10:17 ENTRY DATE: MAY 23, 2024@10:17:55 AUTHOR: JANES DALLAS EXP COSIGNER: URGENCY: STATUS: COMPLETED PRIMARY CARE SECURE MESSAGING Has ADDENDA ------Original Message ------- Sent: 05/23/2024 10:17 AM ET From: JANES DALLAS To: CHAR TATE Subject: General:[place] PHONE # Good Morning, Please report any ER visits within 72 hours to . Happy Holidays Thank you for your service, KIAH Phillips - PACT Content Administrator /elizabeth/ JANES DALLAS RN REGISTERED NURSE Signed: 05/23/2024 10:17 05/27/2024 ADDENDUM STATUS: COMPLETED teams from [employer] who works here.: Rosina Monreal 3:08 PM Hi there. I hope your holiday was better than Fermin's. He is being discharged form [facility] now, but feeling better with 3 ux of blood on board and his spirits are up. Discharge hbg is 7.4. 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 They are suspecting some in small bowel, but letting it ride for bit so he needs to seen by primary care and have CBC drawn on Thursday, maybe Thursday? They also are starting him on Eliquis due to a 12 hour stent of having a fib, (currently in NSR). mom has an echo on thursday at 11 so if possible would like to be able to work around that. How can I get this appt booked or lab draw set up? Labs ordered. Lab is a walk in 8-430 busin... by Kiara Cash 4:51 PM Kiara Cash Labs ordered. Lab is a walk in 8-430 business days. Pharmacy night not need labs to provide the Eliquis, so wait until you hear from pharmacy before you send him for lab. I'll get Rosanna Silva to book with me. I'll probably have him do lab when he sees me anyway to check for an acute drop in H/H.. Please add her to comm auth and book him with me early next week. Overbook as they see fit. /elizabeth/ Kiara Cash PA-C STAFF PHYSICIAN CLINICAL BIOCHEMICAL GENETICIST Signed: 05/27/2024 16:53 Receipt Acknowledged By: * AWAITING SIGNATURE * JANES DALLAS * AWAITING SIGNATURE * ROSANNA SILVA LAUREN M [facility]
--- OUTSIDE RECORDS SUMMARY | 2024-06-07 13:33 | XMS_ITS ---
Author Name [facility] [place] Organization [place] Address [address] [place] [address] Care Team Providers Care Dye Weigher Name Role Phone KIARA CASH Primary Care [...] [facility] (WNR) MEDICARE ADVANTAGE [facility] (WNR) Jun 01, 2017 [id number] Krishan TATE PATIENT [facility] (WNR) MEDICARE ADVANTAGE [facility] (WNR) Jun 01, 2017 [id number] Krishan TATE PATIENT [facility] (WNR) MEDICARE ADVANTAGE [facility] (WNR) Jun 01, 2017 [id number] Krishan TATE PATIENT Selected Encounter This section includes the information on record at [place] for the Encounter. Date/Time Encounter Type Encounter Description Reason Pro vider Source May 30, 2024 12:05 PM Outpatient Encounter COMMUNITY CARE CONSULT IHE Encounter Template Text not used by [place] Plan of Treatment: Future Appointments (+ 6 [...] The data comes from all [place] treatment [facility]. Appointment Date/Time Appointment Type Appointme nt Facility Name Jun 03, 2024 01:30 PM AM[place]ULATORY [place]ICINE [place] [facility] [place] [facility] Jun 07, 2024 10:30 AM AMBULATORY - NONE [place] [facility] [place] [facility] Jun 22, 2024 10:50 AM [place] [facility] Jul 05, 2024 02:30 PM [place] [facility] Jul 19, 2024 01:00 PM [place] [facility] Aug 05, 2024 11:00 AM [place]INE [place] [facility] Aug 19, 2024 11:00 AM [place]ICINE [place] [facility] Sep 13, 2024 11:00 AM AM[place]INE [place] [facility] Sep 13, 2024 11:30 AM AM[place]ORY - [place]ICINE [place] [facility] Active, Pending, and Scheduled Orders This section includes a listing of several types of active, pending, and scheduled orders, including clinic medications orders, diagnostic test orders, procedure orders and consult orders; where the start date of the order is 45 days before the date of the Encounter or 45 days after the date of theEncounter. The data comes from all [facility]. Test Date/Time Test Type Test Details Facility Name May 09, 2024 11:19 AM Consult Order COMMUNITY CARE-CARDIOLOGY Cons Set Designer's Choice [place] [facility] [place] [facility] May 29, 2024 07:50 AM Consult Order COMMUNITY CARE-COLONOSCOPY DIAGNOSTIC Cons Set Designer's Choice [facility] Jun 03, 2024 02:20 PM Consult Order PROSTHETIC S REQUEST - COMPRESSION STOCKINGS Cons Set Designer's Choice [facility] Lab Results: +/- 30 days of the encounter This section includes the Chemistry and Hematology Lab Results on record with [place] for the patient. Radiology Reports and Pathology Reports are provided separately, in subsequent sections. Lab Results This section contains the Chemistry/Hematology Results that were resulted 30 days before or 30 daysafter the date of the Encounter. Date/Time Source Result Type Result - Unit Interpretation Reference Range Comment May 31, 2024 11:20 AM [facility] CREATININE (eGFR 2020) Specimen Type: SERUM No comment entered. Ordering Provider: SOLOMON CASH F Report Released Date/Time: May 27, 2024 04:53 PM Reporting Lab: [facility] [address] [facility] [address] Performing Lab: [facility] [address] [facility] [address] CREATININE, Serum 0.85 mg/dL 0.50-1.40 eGFR(CKD-EPI 2020) 84 mL/min >60 May 31, 2024 11:20 AM [facility] PT & INR (COUMADIN) Specimen Type: PLASMA No comment entered. Ordering Provider: SOLOMON CASH F Report Released Date/Time: May 27, 2024 04:53 PM Reporting Lab: [facility] [address] [facility] [address] Performing Lab: [address] [address] INR 1.5 PROTIME 16.6 s H 10.0-13.1 May 31, 2024 11:20 AM [facility] LIVER FUNCTION Specimen Type: SERUM No comment entered. Ordering Provider: SOLOMON CASH F Report Released Date/Time: May 27, 2024 04:53 PM Reporting Lab: [place] [address] [address] Performing Lab: [address] [address] PROTEIN,TOTAL 5.8 g/dL L 6.0-8.3 ALBUMIN 3.7 g/dL 3.5-5.0 ALKALINE PHOSPHATASE 43 U/L 40-150 AST 11 U/L 5-34 ALT 13 U/L BILIRUBIN, TOTAL 0.5 mg/dL 0.2-1.2 May 31, 2024 11:20 AM [facility] CBC Specimen Type: BLOOD Comment: Verified by repeat analysis. Critical result acknowledged. CATARINO, [id number], 12:13, JC Ordering Provider: SOLOMON CASH Report Released Date/Time: May 27, 2024 04:53 PM Reporting Lab: [address] [address] Performing Lab: [address] [address] WBC 6.32 10*3/uL 4.50-11.00 RBC 3.26 10*6/uL L 4.23-5.66 HGB 7.5 g/dL LL 12.8-17 HCT 26.2 L 39.2-50.4 MCV 80.4 fL L 82-99 MCHC 28.6 g/dL L 30.8-35.1 PLT 309 10*3/uL 140-360 RDW-CV 19.1 H 12.0-16.0 MCH 23.0 pg L 26.2-32.6 May 02, 2024 09:24 AM [facility] BASIC METABOLIC PANEL (fasting) Specimen Type: SERUM Comment: Hemolysis present analysis cannot be performed. Hemolysis present may falsly elevate Potassium Total and Direct Bili, Iron, AST, %Fe. Ordering Provider: SOLOMON CASH Report Released Date/Time: Apr 27, 2024 11:20 AM Reporting Lab: [address] [address] Performing Lab: [address] [place] [address] UREA NITROGEN 24 mg/dL 7-25 GLUCOSE 93 mg/dL 65-100 SODIUM 140 mmol/L 135-145 POTASSIUM 5.1 mmol/L H 3.5-5.0 CHLORIDE 112 mmol/L H 100-110 CO2 19 meq/L L 20-30 CREATININE, Serum 0.87 mg/dL 0.50-1.40 eGFR(CKD-EPI 2020) 84 mL/min >60 May 02, 2024 09:24 AM [facility] LIVER FUNCTION Specimen Type: SERUM Comment: Hemolysis present analysis cannot be performed. Hemolysis present may falsly elevate Potassium Total and Direct Bili, Iron, AST, %Fe. Ordering Provider: SOLOMON CASH Report Released Date/Time: Apr 27, 2024 11:20 AM Reporting Lab: [address] [address] Performing Lab: [address] [address] PROTEIN,TOTAL 6.2 g/dL 6.0-8.3 ALBUMIN 3.8 g/dL 3.5-5.0 ALKALINE PHOSPHATASE 35 U/L L 40-150 AST 22 U/L 5-34 ALT 12 U/L BILIRUBIN, TOTAL comment mg/dL 0.2-1.2 May 02, 2024 09:24 AM [facility] HEMOGLOBIN A1C PANEL Specimen Type: BLOOD [...] Apr 27, 2024 11:20 AM Reporting Lab: [address] [address] Performing Lab: [address] [address] HEMOGLOBIN A1C 5.6 4.0-5.6 May 02, 2024 09:24 AM [facility] LIPID PANEL FASTING Specimen Type: SERUM Comment: Hemolysis present analysis cannot be performed. Hemolysis present may falsly elevate Potassium Total and Direct Bili, Iron, AST, %Fe. Ordering Provider: SOLOMON CASH Report Released Date/Time: Apr 27, 2024 11:20 AM Reporting Lab: [facility] [address] [facility] [address] Performing Lab: [facility] [address] [address] CHOLESTEROL 85 mg/dL TRIGLYCERIDE 130 mg/dL 0-150 [...] place. Date/Time Current Smoking Status Comment [facility] Dec 21, 2023 11:40 AM [place]-TOBACCO QUIT 15 YRS OR MORE [facility] Tobacco Use History This section includes a history of the smoking, or tobacco-related health factors, that were collected on or before the date of the Encounter. The data comes from the [place] facility where the Encounter took place. Date/Time Smoking Status/Tobac co Use Comment [facility] Dec 21, 2023 11:40 AM [place]-TOBACCO QUIT 15 YRS OR MORE [place] [facility] [place] [facility] Oct 31, 2022 11:30 AM VA-TOBACCO FORMER USER [place] [facility] [place] [facility] Oct 31, 2022 11:30 AM [place]-TOBACCO QUIT 15 YRS OR MORE [place] [facility] [facility] Sep 17, 2021 03:00 PM VA-TOBACCO FORMER USER [place] [facility] [facility] Sep 17, 2021 03:00 PM VA-TOBACCO QUIT 15 YRS OR MORE [place] [facility] Aug 15, 2020 10:00 AM VA-TOBACCO FORMER USER [place] [facility] [facility] Aug 15, 2020 10:00 AM VA-TOBACCO QUIT 15 YRS OR MORE [place] [facility] May 12, 2019 03:07 PM VA-TOBACCO FORMER USER [place] [facility] [place] [facility] May 12, 2019 03:07 PM VA-TOBACCO QUIT 15 YRS OR MORE [facility] May 31, 2018 01:08 PM VA-TOBACCO FORMER USER [place] [facility] May 31, 2018 01:08 PM VA-TOBACCO QUIT 15 YRS OR MORE [place] [facility] Feb 16, 2017 01:33 PM QUIT TOBACCO USE > 7 YEARS AGO quit 16 years ago [facility] Nov 13, 2015 03:48 PM QUIT TOBACCO USE > 7 YEARS AGO . [facility] May 12, 2013 12:49 PM QUIT TOBACCO USE > 7 YEARS AGO quit 2001 [facility] Advance Directives: All historical and [...] Nov 03, 2022 ADVANCE DIRECTIVE [facility] Aug 16, 2020 ADVANCE DIRECTIVE EDMUND MORGAN [facility] Encounter Notes: All associated encounter notes This section contains the clinical notes associated to the Encounter. Date/Time Encounter Note(s) Provider Source May 30, 2024 12:05 PM NONVA NOTE: LOCAL TITLE: COMMUNITY CARE-LELA SELF PRESENTING CARE COORD PLAN STANDARD TITLE: NONVA NOTE DATE OF NOTE: MAY 30, 2024@12:05 ENTRY DATE: MAY 30, 2024@12:05:49 AUTHOR: DARCY HAHN COSIGNER: URGENCY: STATUS: COMPLETED COMMUNITY CARE-LELA SELF PRESENTING CARE COORD PLAN NOTE Has ADDENDA Emergency Notification Intake Date Presenting to the Facility: May Method of Contact: Notified from ECR worklist Notification ID: [id number] [facility] Ref[facility] Name: Hospital: [facility] Address: City: [place] State: [place] Zip Code: Phone : Community Facility Point of Contact: Name: Vida Phone: Chief complaint: K92.2 E78.5 I10 Primary Diagnosis: Disposition Admitted Route of Admission: ER Date of Admission: May Admitting Diagnosis: K92.2 E78.5 I10 Community Care Provider: Kasandra Level of Care: /es/ DARCY QIU Signed: 05/30/2024 12:06 Receipt Acknowledged By: 05/30/2024 13:05 /es/ JANES DALLAS, KIAH REGISTERED NURSE 05/31/2024 12:27 /es/ WILMER HARPER Registered Nurse Curtain Hemmer Automatic 06/01/2024 09:43 /es/ Kiara Cash PA-C STAFF PHYSICIAN BICYCLE MECHANIC 06/06/2024 ADDENDUM STATUS: COMPLETED discharged home on 05/27. /es/ REID SOL,RN,CNL Curtain Hemmer Automatic Signed: 06/06/2024 13:19 DARCY HAHN HUMBOLDT
--- OUTSIDE RECORDS SUMMARY | 2024-06-07 13:33 | XMS_ITS | Encounter Summary ---
Author Name [facility] [place] Address [address] [place] [address] Care Team Providers Care Expanded Function Dental Assistant Name Role Phone KIARA ESPARZA Primary Care [...] Name Patient's Relationship to Policy Colbert [facility] (WNR) MEDICARE ADVANTAGE [facility] (WNR) Jun 01, 2017 [id number] [phone] Krishan TATE PATIENT [facility] (WNR) MEDICARE ADVANTAGE [facility] (WNR) Jun 01, 2017 [id number] Krishan TATE PATIENT [facility] (WNR) MEDICARE ADVANTAGE [facility] (WNR) Jun 01, 2017 [id number] Krishan TATE PATIENT Selected Encounter This section includes the information on record at [place] for the Encounter. Date/Time Encounter Type Encounter Description Reason Pro vider Source May 23, 2024 12:00 AM Outpatient Encounter EVENT (HISTORICAL) IHE Encounter Template Text not used by [place] Plan of Treatment: Future Appointments (+ 6 months) and Future Tests (+/- 45 days) The Plan of Treatment section includes future care activities for the patient from all [place] [facility] This section includes future appointments and future orders which are active, pending or scheduled. Future Appointments This section includes appointments that were scheduled to occur 6 months from the date of the Encounter, up to a maximum of 20 appointments. The data comes from all [facility]. Appointment Date/Time Appointment Type Appointme nt Facility Name Jun 03, 2024 01:30 PM [place]ORY [place] [facility] Jun 07, 2024 10:30 AM AMBULATORY - NONE [place] [facility] [place] [facility] Jun 22, 2024 10:50 AM AM[place]ORY [place]IC[place] [facility] Jul 05, 2024 02:30 PM AM[place]ORY [place]ICINE [place] [facility] Jul 19, 2024 01:00 PM AM[place]ULATORY [place]INE [place] [place] [facility] Aug 05, 2024 11:00 AM AM[place]ORY [place]INE [place] [facility] Aug 19, 2024 11:00 AM AM[place]ULATORY [place]ICINE [place] [facility] Sep 13, 2024 11:00 AM AM[place]ORY [place]INE [place] [facility] Sep 13, 2024 11:30 AM AM[place]ULATORY [place]ICINE [place] [place] [facility] [...] of theEncounter. The data comes from all [facility]. Test Date/Time Test Type Test Details Facility Name May 09, 2024 11:19 AM Consult Order COMMUNITY CARE-CARDIOLOGY Cons Lead Android Developer's Choice [place] [facility] [place] [facility] May 29, 2024 07:50 AM Consult Order COMMUNITY CARE-COLONOSCOPY DIAGNOSTIC Cons Lead Android Developer's Choice [facility] Jun 03, 2024 02:20 PM Consult Order PROSTHETIC S REQUEST - COMPRESSION STOCKINGS Cons Lead Android Developer's Choice [facility] Lab Results: +/- 30 days of [...] Range Comment May 31, 2024 11:20 AM [facility] CREATININE (eGFR 2020) Specimen Type: SERUM No comment entered. Ordering Provider: SOLOMON ESPARZA F Report Released Date/Time: May 27, 2024 04:53 PM Reporting Lab: [facility] [address] [address] Performing Lab: [facility] [address] [address] CREATININE, Serum 0.85 mg/dL 0.50-1.40 eGFR(CKD-EPI 2020) 84 mL/min >60 May 31, 2024 11:20 AM [facility] PT & INR (COUMADIN) Specimen Type: PLASMA No comment entered. Ordering Provider: SOLOMON ESPARZA F Report Released Date/Time: May 27, 2024 04:53 PM Reporting Lab: [facility] [address] [address] Performing Lab: [facility]PITALUSE[address] [address] INR 1.5 PROTIME 16.6 s H 10.0-13.1 May 31, 2024 11:20 AM [facility] LIVER FUNCTION Specimen Type: SERUM No comment entered. Ordering Provider: SOLOMON ESPARZA F Report Released Date/Time: May 27, 2024 04:53 PM Reporting Lab: [facility] [address] [address] Performing Lab: [address] [address] PROTEIN,TOTAL 5.8 g/dL L 6.0-8.3 ALBUMIN 3.7 g/dL 3.5-5.0 ALKALINE PHOSPHATASE 43 U/L 40-150 AST 11 U/L 5-34 ALT 13 U/L BILIRUBIN, TOTAL 0.5 mg/dL 0.2-1.2 May 31, 2024 11:20 AM [facility] CBC Specimen Type: BLOOD Comment: Verified by repeat analysis. Critical result acknowledged. CATARINO, [id number], 12:13, JCL Ordering Provider: SOLOMON ESPARZA Report Released Date/Time: May 27, 2024 04:53 PM Reporting Lab: [address] [address] Performing Lab: [address] [address] WBC 6.32 10*3/uL 4.50-11.00 RBC 3.26 10*6/uL L 4.23-5.66 HGB 7.5 g/dL LL 12.8-17 HCT 26.2 L 39.2-50.4 MCV 80.4 fL L 82-99 MCHC 28.6 g/dL L 30.8-35.1 PLT 309 10*3/uL 140-360 RDW-CV 19.1 H 12.0-16.0 MCH 23.0 pg L 26.2-32.6 May 02, 2024 09:24 AM [facility] LIVER FUNCTION Specimen Type: SERUM Comment: Hemolysis present analysis cannot be performed. Hemolysis present may falsly elevate Potassium Total and Direct Bili, Iron, AST, %Fe. Ordering Provider: SOLOMON ESPARZA Report Released Date/Time: Apr 27, 2024 11:20 AM Reporting Lab: [address] [address] Performing Lab: [address] [place] [address] PROTEIN,TOTAL 6.2 g/dL 6.0-8.3 ALBUMIN 3.8 g/dL 3.5-5.0 ALKALINE PHOSPHATASE 35 U/L L 40-150 AST 22 U/L 5-34 ALT 12 U/L BILIRUBIN, TOTAL comment mg/dL 0.2-1.2 May 02, 2024 09:24 AM [facility] BASIC METABOLIC PANEL (fasting) Specimen Type: SERUM Comment: Hemolysis present analysis cannot be performed. Hemolysis present may falsly elevate Potassium Total and Direct Bili, Iron, AST, %Fe. Ordering Provider: SOLOMON ESPARZA F Report Released Date/Time: Apr 27, 2024 11:20 AM Reporting Lab: [address] [address] Performing Lab: [address] [address] UREA NITROGEN 24 mg/dL 7-25 GLUCOSE 93 mg/dL 65-100 SODIUM 140 mmol/L 135-145 POTASSIUM 5.1 mmol/L H 3.5-5.0 CHLORIDE 112 mmol/L H 100-110 CO2 19 meq/L L 20-30 CREATININE, Serum 0.87 mg/dL 0.50-1.40 eGFR(CKD-EPI 2020) 84 mL/min >60 May 02, 2024 09:24 AM [facility] HEMOGLOBIN A1C PANEL Specimen Type: [...] Apr 27, 2024 11:20 AM Reporting Lab: [address] [address] Performing Lab: [address] [address] HEMOGLOBIN A1C 5.6 4.0-5.6 May 02, 2024 09:24 AM [facility] LIPID PANEL FASTING Specimen Type: SERUM Comment: Hemolysis present analysis cannot be performed. Hemolysis present may falsly elevate Potassium Total and Direct Bili, Iron, AST, %Fe. Ordering Provider: SOLOMON ESPARZA Report Released Date/Time: Apr 27, 2024 11:20 AM Reporting Lab: [facility] [address] [address] Performing Lab: [facility] [address] [address] CHOLESTEROL 85 mg/dL TRIGLYCERIDE 130 mg/dL 0-150 LDL calculated 29 mg/dL 0-129 CHOL/HDL 2.8 HDL CHOLESTEROL 30 mg/dL L 40-60 Social History: Smoking Status (Most current) and Tobacco Use (All prior to encounter date) This section includes the most current, and the historical, smoking and tobacco- related health factors from the [place] facility where the Encounter took place. Current Smoking Status This section includes the most current smoking, or tobacco-related health factor, from the [place] facility where the Encounter took place. Date/Time Current Smoking Status Comment [facility] Dec 21, 2023 11:40 AM [place]-TOBACCO FORMER USER [facility] Tobacco Use History This section includes a history of the smoking, or tobacco-related health factors, that were collected on or before the date of the Encounter. The data comes from the [place] facility where the Encounter took place. Date/Time Smoking Status/Tobac co Use Comment [facility] Dec 21, 2023 11:40 AM VA-TOBACCO QUIT 15 YRS OR MORE [place] [facility] [facility] Oct 31, 2022 11:30 AM VA-TOBACCO FORMER USER [place] [facility] Oct 31, 2022 11:30 AM VA-TOBACCO QUIT 15 YRS OR MORE [place] [facility] [facility] Sep 17, 2021 03:00 PM VA-TOBACCO FORMER USER [place] [facility] Sep 17, 2021 03:00 PM VA-TOBACCO QUIT 15 YRS OR MORE [place] [facility] Aug 15, 2020 10:00 AM VA-TOBACCO FORMER USER [place] [facility] Aug 15, 2020 10:00 AM VA-TOBACCO QUIT 15 YRS OR MORE [place] [facility] May 12, 2019 03:07 PM VA-TOBACCO FORMER USER [place] [facility] May 12, 2019 03:07 PM VA-TOBACCO QUIT 15 YRS OR MORE [facility] May 31, 2018 01:08 PM VA-TOBACCO FORMER USER [place] [facility] May 31, 2018 01:08 PM VA-TOBACCO QUIT 15 YRS OR MORE [place] [facility] Feb 16, 2017 01:33 PM QUIT TOBACCO USE > 7 YEARS AGO quit 16 years ago [facility] Nov 13, 2015 03:48 PM QUIT TOBACCO USE > 7 YEARS AGO . [facility] May 12, 2013 12:49 PM QUIT TOBACCO USE > 7 YEARS AGO quit 2001 [facility] Advance Directives: All historical and current Section Date Range: From patient's date of to the date document was created. This section includes ALL of a patient's completed or amended [place] Advance and Rescinded Directives. The entries below indicate that a directive exists for the patient, but an actual copy is not included with this document. The data comes from all [place] facilities. Date Advance Directives Provider Source Nov 03, 2022 ADVANCE DIRECTIVE [facility] Aug 16, 2020 ADVANCE DIRECTIVE EDMUND MORGAN [facility] Encounter Notes: All associated encounter notes This section contains the clinical notes associated to the Encounter. Date/Time Encounter Note(s) Provider Source May 23, 2024 12:00 AM NONVA NOTE: LOCAL TITLE: NON-VA HOSPITALIZATIONS/ER STANDARD TITLE: NONVA NOTE DATE OF NOTE: MAY 23, 2024 ENTRY DATE: MAY 30, 2024@08:08:16 AUTHOR: ROHAN KENDRICK EXP COSIGNER: URGENCY: STATUS: COMPLETED VistA Imaging - Scanned Document SCANNED DOCUMENT SIGNATURE NOT REQUIRED Electronically Filed: 05/30/2024 by: ROHAN COLIN CNTRL [facility]
--- OUTSIDE RECORDS SUMMARY | 2024-06-07 13:33 | XMS_ITS | Encounter Summary ---
Author Name [facility] [facility] [place] Address [address] [place] [address] Care Team Providers Care Defence Intelligence Analyst Name Role Phone KIARA ESPARZA Primary Care [...] Colbert's Name Patient's Relationship to Policy Colbert [facility] (WNR) MEDICARE ADVANTAGE [facility] (WNR) Jun 01, 2017 [id number] [phone] Krishan TATE PATIENT [facility] (WNR) MEDICARE ADVANTAGE [facility] (WNR) Jun 01, 2017 [id number] Krishan TATE PATIENT [facility] (WNR) MEDICARE ADVANTAGE [facility] (WNR) Jun 01, 2017 [id number] Krishan TATE PATIENT Selected Encounter This section includes the information on record at NH for the Encounter. Date/Time Encounter Type Encounter Description Reason Pro vider Source May 27, 2024 12:00 AM Outpatient Encounter EVENT (HISTORICAL) IHE Encounter Template Text not used by [place] Plan of Treatment: Future Appointments (+ 6 months) and Future Tests (+/- 45 days) The Plan of Treatment section includes future care activities for the patient from all [facility] This section includes future appointments and future orders which are active, pending or scheduled. Future Appointments This section includes appointments that were scheduled to occur 6 months from the date of the Encounter, up to a maximum of 20 appointments. The data comes from all [facility]. Appointment Date/Time Appointment Type Appointme nt Facility Name Jun 03, 2024 01:30 PM AMBULATORY - MEDICINE [place] [facility] [place] [facility] Jun 07, 2024 10:30 AM AMBULATORY - NONE [place] [facility] [place] [facility] Jun 22, 2024 10:50 AM AMBULATORY - MEDICINE [place] [facility] [place] [facility] Jul 05, 2024 02:30 PM AMBULATORY - MEDICINE [place] [facility] [place] [facility] Jul 19, 2024 01:00 PM AMBULATORY - MEDICINE [place] [facility] [place] [facility] Aug 05, 2024 11:00 AM AMBULATORY - MEDICINE [place] [facility] [place] [facility] Aug 19, 2024 11:00 AM AMBULATORY - MEDICINE [place] [facility] [place] [facility] Sep 13, 2024 11:00 AM AMBULATORY - MEDICINE [place] [facility] [place] [facility] Sep 13, 2024 11:30 AM AMBULATORY - MEDICINE [place] [facility] [place] [facility] Active, Pending, and Scheduled Orders This section includes a listing of several types of active, pending, and scheduled orders, including clinic medications orders, diagnostic test orders, procedure orders and consult orders; where the start date of the order is 45 days before the date of the Encounter or 45 days after the date of theEncounter. The data comes from all [facility]. Test Date/Time Test Type Test Details Facility Name May 09, 2024 11:19 AM Consult Order COMMUNITY CARE-CARDIOLOGY Cons Ad Writer's Choice [place] [facility] [place] [facility] May 29, 2024 07:50 AM Consult Order COMMUNITY CARE-COLONOSCOPY DIAGNOSTIC Cons [facility] [place] [facility] Jun 03, 2024 02:20 PM Consult Order PROSTHETIC S REQUEST - COMPRESSION STOCKINGS Cons Ad Writer[facility] Lab Results: +/- 30 days [...] Range Comment May 31, 2024 11:20 AM [facility] PT & INR (COUMADIN) Specimen Type: PLASMA No comment entered. Ordering Provider: SOLOMON ESPARZA F Report Released Date/Time: May 27, 2024 04:53 PM Reporting Lab: [facility] [address] [facility] [address] Performing Lab: [facility] [address] [address] INR 1.5 PROTIME 16.6 s H 10.0-13.1 May 31, 2024 11:20 AM [facility] CREATININE (eGFR 2020) Specimen Type: SERUM No comment entered. Ordering Provider: SOLOMON ESPARZA F Report Released Date/Time: May 27, 2024 04:53 PM Reporting Lab: [facility] [address] [facility] [address] Performing Lab: [facility] [address] [address] CREATININE, Serum 0.85 mg/dL 0.50-1.40 eGFR(CKD-EPI 2020) 84 mL/min >60 May 31, 2024 11:20 AM [facility] LIVER FUNCTION Specimen Type: SERUM No comment entered. Ordering Provider: SOLOMON ESPARZA F Report Released Date/Time: May 27, 2024 04:53 PM Reporting Lab: [facility] [address] [address] Performing Lab: [address] [address] PROTEIN,TOTAL 5.8 g/dL L 6.0-8.3 ALBUMIN 3.7 g/dL 3.5-5.0 ALKALINE PHOSPHATASE 43 U/L 40-150 AST 11 U/L 5-34 ALT 13 U/L BILIRUBIN, TOTAL 0.5 mg/dL 0.2-1.2 May 31, 2024 11:20 AM [facility] CBC Specimen Type: BLOOD Comment: Verified by repeat analysis. Critical result acknowledged. CATARINO, [id number], 12:13, JCL Ordering Provider: SOLOMON ESPARZA Report Released Date/Time: May 27, 2024 04:53 PM Reporting Lab: [address] [address] Performing Lab: [address] [address] WBC 6.32 10*3/uL 4.50-11.00 RBC 3.26 10*6/uL L 4.23-5.66 HGB 7.5 g/dL LL 12.8-17 HCT 26.2 L 39.2-50.4 MCV 80.4 fL L 82-99 MCHC 28.6 g/dL L 30.8-35.1 PLT 309 10*3/uL 140-360 RDW-CV 19.1 H 12.0-16.0 MCH 23.0 pg L 26.2-32.6 May 02, 2024 09:24 AM [facility] LIVER FUNCTION Specimen Type: SERUM Comment: Hemolysis present analysis cannot be performed. Hemolysis present may falsly elevate Potassium Total and Direct Bili, Iron, AST, %Fe. Ordering Provider: SOLOMON ESPARZA Report Released Date/Time: Apr 27, 2024 11:20 AM Reporting Lab: [address] [address] Performing Lab: [address] [place] [address] PROTEIN,TOTAL 6.2 g/dL 6.0-8.3 ALBUMIN 3.8 g/dL 3.5-5.0 ALKALINE PHOSPHATASE 35 U/L L 40-150 AST 22 U/L 5-34 ALT 12 U/L BILIRUBIN, TOTAL comment mg/dL 0.2-1.2 May 02, 2024 09:24 AM [facility] BASIC METABOLIC PANEL (fasting) Specimen Type: SERUM Comment: Hemolysis present analysis cannot be performed. Hemolysis present may falsly elevate Potassium Total and Direct Bili, Iron, AST, %Fe. Ordering Provider: SOLOMON ESPARZA F Report Released Date/Time: Apr 27, 2024 11:20 AM Reporting Lab: [address] [address] Performing Lab: [address] [address] UREA NITROGEN 24 mg/dL 7-25 GLUCOSE 93 mg/dL 65-100 SODIUM 140 mmol/L 135-145 POTASSIUM 5.1 mmol/L H 3.5-5.0 CHLORIDE 112 mmol/L H 100-110 CO2 19 meq/L L 20-30 CREATININE, Serum 0.87 mg/dL 0.50-1.40 eGFR(CKD-EPI 2020) 84 mL/min >60 May 02, 2024 09:24 AM [facility] HEMOGLOBIN A1C PANEL Specimen Type: BLOOD [...] 27, 2024 11:20 AM Reporting Lab: [address] [address] Performing Lab: [address] [address] HEMOGLOBIN A1C 5.6 4.0-5.6 May 02, 2024 09:24 AM [facility] LIPID PANEL FASTING Specimen Type: SERUM Comment: Hemolysis present analysis cannot be performed. Hemolysis present may falsly elevate Potassium Total and Direct Bili, Iron, AST, %Fe. Ordering Provider: SOLOMON ESPARZA Report Released Date/Time: Apr 27, 2024 11:20 AM Reporting Lab: [facility] [address] [facility] [address] Performing Lab: [facility] [address] [facility] [address] CHOLESTEROL 85 mg/dL TRIGLYCERIDE 130 mg/dL 0-150 [...] took place. Date/Time Current Smoking Status Comment [facility] Dec 21, 2023 11:40 AM VA-TOBACCO FOR[facility]ER [facility] Tobacco Use History This section includes a history of the smoking, or tobacco-related health factors, that were collected on or before the date of the Encounter. The data comes from the [place] facility where the Encounter took place. Date/Time Smoking Status/Tobac co Use Comment [facility] Dec 21, 2023 11:40 AM VA-TOBACCO QUIT 15 YRS OR MORE [place] [facility] [place] [facility] Oct 31, 2022 11:30 AM VA-TOBACCO FORMER USER [place] [facility] [place] [facility] Oct 31, 2022 11:30 AM VA-TOBACCO QUIT 15 YRS OR MORE [place] [facility] [place] [facility] Sep 17, 2021 03:00 PM VA-TOBACCO FORMER USER [place] [facility] [place] [facility] Sep 17, 2021 03:00 PM VA-TOBACCO QUIT 15 YRS OR MORE [place] [facility] [place] [facility] Aug 15, 2020 10:00 AM VA-TOBACCO FOR[facility]ER [facility] [place] [facility] Aug 15, 2020 10:00 AM VA-TOBACCO QUIT 15 YRS OR MORE [facility] May 12, 2019 03:07 PM VA-TOBACCO FORMER USER [place] [facility] [place] [facility] May 12, 2019 03:07 PM VA-TOBACCO QUIT 15 YRS OR [facility] May 31, 2018 01:08 PM VA-TOBACCO FOR[facility]ER [facility] May 31, 2018 01:08 PM VA-TOBACCO QUIT 15 YRS OR MORE [facility] Feb 16, 2017 01:33 PM QUIT TOBACCO USE > 7 YEARS AGO quit 16 years ago [facility] Nov 13, 2015 03:48 PM QUIT TOBACCO USE > 7 YEARS AGO . [facility] May 12, 2013 12:49 PM QUIT TOBACCO USE > 7 YEARS AGO quit 2001 [facility] Advance Directives: All historical and current [...] Nov 03, 2022 ADVANCE DIRECTIVE LENORA CARCAMO [facility] Aug 16, 2020 ADVANCE DIRECTIVE EDMUND MORGAN [facility]
--- OUTSIDE RECORDS SUMMARY | 2024-06-07 13:33 | XMS_ITS ---
Author Name [facility] [place] [facility] [place] Address [address] [place] [address] Care Team Providers Care Electric Meter Repairer Name Role Phone KIARA CASH Primary Care [...] Name Patient's Relationship to Policy Colbert [facility] (WNR) MEDICARE ADVANTAGE [facility] (WNR) Jun 01, 2017 [id number] Krishan TATE PATIENT [facility] (WNR) MEDICARE ADVANTAGE [facility] (WNR) Jun 01, 2017 [id number] [phone] Krishan TATE PATIENT [facility] (WNR) MEDICARE ADVANTAGE [facility] (WNR) Jun 01, 2017 [id number] Krishan TATE PATIENT Selected Encounter This section includes the information on record at [place] for the Encounter. 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 Date/Time Primary/Secondary Diagnosis Diagnosis Name Provider Source May 09, 2024 11:19 AM PRIMARY Hypertensive heart disease without heart failure STEVE CASH [place] [facility] [place] [facility] Plan of Treatment: Future Appointments (+ 6 [...] - MEDICINE [place] [facility] [place] [facility] Jun 03, 2024 01:30 PM AMBULATORY - MEDICINE [place] [facility] [place] [facility] Jun 07, 2024 10:30 AM AMBULATORY - NONE [place] [facility] [place] [facility] Jun 22, 2024 10:50 AM AMBULATORY - MEDICINE [place] [facility] [place] [facility] Jul 05, 2024 02:30 PM AMBULATORY - MEDICINE [facility] [place] [facility] Jul 19, 2024 01:00 PM AMBULATORY - MEDICINE [facility] [place] [facility] Aug 05, 2024 11:00 AM AMBULATORY - MEDICINE [place] [facility] [place] [facility] Aug 19, 2024 11:00 AM AMBULATORY - MEDICINE [place] [facility] [place] [facility] Sep 13, 2024 11:00 AM AMBULATORY - MEDICINE [place] [facility] [place] [facility] Sep 13, 2024 11:30 AM AMBULATORY - MEDICINE [place] [facility] [place] [facility] Active, Pending, and Scheduled Orders This section [...] 31, 2024 08:02 AM Consult Order [facility]-NEUROLOGY Cons Metal Ceiling Hanger's Choice [facility] May 09, 2024 11:19 AM Consult Order [facility]-CARDIOLOGY Cons Metal Ceiling [employer]anger[employer] Choice [facility] May 29, 2024 07:50 AM Consult Order [facility]-COLONOSCOPY DIAGNOSTIC Cons Metal Ceiling [employer]anger[employer] [facility] Jun 03, 2024 02:20 PM Consult Order PROSTHETIC S REQUEST - COMPRESSION STOCKINGS Cons Metal Ceiling Hanger's Choice [facility] Lab Results: +/- 30 days of [...] Range Comment May 31, 2024 11:20 AM [facility] CREATININE (eGFR 2020) Specimen Type: SERUM No comment entered. Ordering Provider: SOLOMON CASH F Report Released Date/Time: May 27, 2024 04:53 PM Reporting Lab: [facility] [address] [facility] [address] Performing Lab: [facility] [address] [facility] [address] CREATININE, Serum 0.85 mg/dL 0.50-1.40 eGFR(CKD-EPI 2020) 84 mL/min >60 May 31, 2024 11:20 AM [facility] PT & INR (COUMADIN) Specimen Type: PLASMA No comment entered. Ordering Provider: SOLOMON CASH F Report Released Date/Time: May 27, 2024 04:53 PM Reporting Lab: [address] [address] [facility]forming [facility]: [facility] [address] [address] INR 1.5 PROTIME 16.6 s H 10.0-13.1 May 31, 2024 11:20 AM [facility] LIVER FUNCTION Specimen Type: SERUM No comment entered. Ordering Provider: SOLOMON CASH [facility] F Report Released Date/Time: May 27, 2024 04:53 PM Reporting Lab: [address] [address] Performing Lab: [address] [address] PROTEIN,TOTAL 5.8 g/dL L 6.0-8.3 ALBUMIN 3.7 g/dL 3.5-5.0 ALKALINE PHOSPHATASE 43 U/L 40-150 AST 11 U/L 5-34 ALT 13 U/L BILIRUBIN, TOTAL 0.5 mg/dL 0.2-1.2 May 31, 2024 11:20 AM [facility] CBC Specimen Type: BLOOD Comment: Verified by repeat analysis. Critical result acknowledged. CATARINO, [id number], 12:13, JCL Ordering Provider: SOLOMON CASH F Report Released Date/Time: May 27, 2024 04:53 PM Reporting Lab: [address] [address] Performing Lab: [address] [address] WBC 6.32 10*3/uL 4.50-11.00 RBC 3.26 10*6/uL L 4.23-5.66 HGB 7.5 g/dL LL 12.8-17 HCT 26.2 L 39.2-50.4 MCV 80.4 fL L 82-99 MCHC 28.6 g/dL L 30.8-35.1 PLT 309 10*3/uL 140-360 RDW-CV 19.1 H 12.0-16.0 MCH 23.0 pg L 26.2-32.6 May 02, 2024 09:24 AM [facility] LIVER FUNCTION Specimen Type: SERUM Comment: Hemolysis present analysis cannot be performed. Hemolysis present may falsly elevate Potassium Total and Direct Bili, Iron, AST, %Fe. Ordering Provider: SOLOMON CASH F Report Released Date/Time: Apr 27, 2024 11:20 AM Reporting Lab: [address] [address] Performing Lab: [address] [address] PROTEIN,TOTAL 6.2 g/dL 6.0-8.3 ALBUMIN 3.8 g/dL 3.5-5.0 ALKALINE PHOSPHATASE 35 U/L L 40-150 AST 22 U/L 5-34 ALT 12 U/L BILIRUBIN, TOTAL comment mg/dL 0.2-1.2 May 02, 2024 09:24 AM [facility] BASIC METABOLIC PANEL (fasting) Specimen Type: SERUM Comment: Hemolysis present analysis cannot be performed. Hemolysis present may falsly elevate Potassium Total and Direct Bili, Iron, AST, %Fe. Ordering Provider: SOLOMON CASH F Report Released Date/Time: Apr 27, 2024 11:20 AM Reporting Lab: [address] [address] Performing Lab: [address] [address] UREA NITROGEN 24 mg/dL 7-25 GLUCOSE 93 mg/dL 65-100 SODIUM 140 mmol/L 135-145 POTASSIUM 5.1 mmol/L H 3.5-5.0 CHLORIDE 112 mmol/L H 100-110 CO2 19 meq/L L 20-30 CREATININE, Serum 0.87 mg/dL 0.50-1.40 eGFR(CKD-EPI 2020) 84 mL/min >60 May 02, 2024 09:24 AM [facility] HEMOGLOBIN A1C PANEL Specimen Type: BLOOD [...] Apr 27, 2024 11:20 AM Reporting Lab: [facility] [address] [address] Performing Lab: [address] [address] HEMOGLOBIN A1C 5.6 4.0-5.6 May 02, 2024 09:24 AM [facility] LIPID PANEL FASTING Specimen Type: SERUM Comment: Hemolysis present analysis cannot be performed. Hemolysis present may falsly elevate Potassium Total and Direct Bili, Iron, AST, %Fe. Ordering Provider: SOLOMON CASH Report Released Date/Time: Apr 27, 2024 11:20 AM Reporting Lab: [address] [address] Performing Lab: [address] [address] CHOLESTEROL 85 mg/dL TRIGLYCERIDE 130 mg/dL 0-150 LDL calculated 29 mg/dL 0-129 CHOL/HDL 2.8 HDL CHOLESTEROL 30 mg/dL L 40-60 Vital Signs: All taken on the encounter date This section contains inpatient and outpatient Vital Signs collected on the date of the Encounter. Date/Time Temperature Pulse Blood Pressure Respiratory Rate SP02 Pain Height Weight Body Mass Index Source May 09, 2024 10:20 AM 56 128/62 16 98 5 66 204.9 33 [facility] Social History: Smoking Status (Most current) [...] 21, 2023 11:40 AM VA-TOBACCO FORMER USER [place] [facility] [place] [facility] Tobacco Use History This section includes a history of the smoking, or tobacco-related health factors, that were collected on or before the date of the Encounter. The data comes from the [place] facility where the Encounter took place. Date/Time Smoking Status/Tobac co Use Comment Facility Dec 21, 2023 11:40 AM VA-TOBACCO QUIT 15 YRS OR MORE [place] [facility] [place] [facility] Oct 31, 2022 11:30 AM VA-TOBACCO FORMER USER [facility] [place] [facility] Oct 31, 2022 11:30 AM VA-TOBACCO QUIT 15 YRS OR MORE [place] [facility] [facility] Sep 17, 2021 03:00 PM VA-TOBACCO FORMER USER [facility] [place] [facility] Sep 17, 2021 03:00 PM VA-TOBACCO QUIT 15 YRS OR MORE [place] [facility] [facility] Aug 15, 2020 10:00 AM VA-TOBACCO FORMER USER [place] [facility] [facility] Aug 15, 2020 10:00 AM VA-TOBACCO QUIT 15 YRS OR MORE [place] [facility] [facility] May 12, 2019 03:07 PM VA-TOBACCO FORMER USER [place] [facility] [facility] May 12, 2019 03:07 PM VA-TOBACCO QUIT 15 YRS OR MORE [place] [facility] [facility] May 31, 2018 01:08 PM VA-TOBACCO FORMER USER [place] [facility] [place] [facility] May 31, 2018 01:08 PM VA-TOBACCO QUIT 15 YRS OR MORE [place] [facility] [place] [facility] Feb 16, 2017 01:33 PM QUIT TOBACCO USE > 7 YEARS AGO quit 16 years ago [place] [facility] [facility] Nov 13, 2015 03:48 PM QUIT TOBACCO USE > 7 YEARS AGO . [facility] [place] [facility] May 12, 2013 12:49 PM QUIT TOBACCO USE > 7 YEARS AGO quit 2001 [place] [facility] [place] [facility] Advance Directives: All historical and current Section [...] Nov 03, 2022 ADVANCE DIRECTIVE LENORA CARCAMO [place] [facility] Aug 16, 2020 ADVANCE DIRECTIVE EDMUND MORGAN [place] [facility] Encounter Notes: All associated encounter notes This section contains the clinical notes associated to the Encounter. Date/Time Encounter Note(s) Provider Source May 23, 2024 09:48 AM PHYSICIAN INSPECTOR TUBES NOTE: LOCAL TITLE: PA NOTE STANDARD TITLE: PHYSICIAN INSPECTOR TUBES NOTE DATE OF NOTE: MAY 23, 2024@09:48 ENTRY DATE: MAY 23, 2024@09:48:49 AUTHOR: KIARA CASH EXP COSIGNER: URGENCY: STATUS: COMPLETED WILLOW NOTE Has ADDENDA I was notified by staff that Mr Tate's horn/sob is not improved. I have seen records about his going workup with Dr Asencio at [facility] cardiology. They report ekg and echo complete, nuclear stress test pending 05/26. I spoke with him and Anaya on speaker. They report not worse, but no better. See my recent note for context. They decide to go to [facility] ED by ambulance now, as we have no sickcall provider here today and a full ED can do more, faster than we. Please fax this note and our recent labs to Dr Asencio at [facility] cardiology. Do we call an expect to [facility] ED? Send Him or Anaya (or both) the [place] ED notification phone # so they can notify. /elizabeth/ Kiara Cash PA-C STAFF PHYSICIAN INSPECTOR TUBES Signed: 05/23/2024 09:54 Receipt Acknowledged By: 05/23/2024 10:16 /elizabeth/ JANES DALLAS RN REGISTERED NURSE 05/23/2024 ADDENDUM STATUS: COMPLETED Faxed. /shakir DALLAS RN REGISTERED NURSE Signed: 05/23/2024 10:15 KIARA CASH [place] [facility] May 09, 2024 11:15 AM PHYSICIAN INSPECTOR TUBES NOTE: LOCAL TITLE: PA NOTE STANDARD TITLE: PHYSICIAN INSPECTOR TUBES NOTE DATE OF NOTE: MAY 09, 2024@11:15 ENTRY DATE: MAY 09, 2024@11:15:11 AUTHOR: KIARA CASH: URGENCY: STATUS: COMPLETED CC/HPI/A/P: 88 year old [...] Miralax as Jackson had planned, not sat wtih current BMs 'like pencils' but admits that he was like clockwork 'for 86 years' We discuss and renew miralax. Review of systems: Patient reports no changes from [facility], in meds or any admissions. Active problems - Computerized Problem List is the source for the followin. Hematuria (SCT 14277969) 2. Inflamed Seborrheic Keratosis (SCT 92952368) 3. Glaucoma 4. Chronic gastric ulcer 5. Obesity 6. Primary generalized osteoarthritis 7. Obstructive sleep apnea syndrome 8. Coronary arteriosclerosis 9. Benign essential hypertension (SNOMED CT 9345700) 10. 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 [...] Recent labs reviewed with patient today:yes /elizabeth/ Kiara Cash PA-C STAFF PHYSICIAN INSPECTOR TUBES Signed: 05/09/2024 11:19 KIARA CASH [place] [facility] [place] [facility] May 09, 2024 10:29 AM PREVENTIVE MEDICINE NURSING NOTE: LOCAL TITLE: CLINICAL REMINDERS/NURSING STANDARD TITLE: PREVENTIVE MEDICINE NURSING NOTE DATE OF NOTE: MAY 09, 2024@10:29 ENTRY DATE: MAY 09, 2024@10:29:17 AUTHOR: REID CEDILLO COSIGNER: URGENCY: STATUS: COMPLETED (Optional) Whole Health [...] Provider Information Source: FROM OTHER REGISTRY Comment: skilled nursing center [place] COVID-19 Immunization: Patient received a prior dose of the Moderna Monovalent vaccine. Documented: COVID-19 (MODERNA), MRNA, LNP-S, PF, 50 MCG/0.5 ML (AGES 12+ YEARS) Historical Date Administered: Feb 25, 2024 Series: Series 6 Outside Location: Outside Healthcare Provider Information Source: FROM OTHER REGISTRY Comment: [facility] /elizabeth/ REID CEDILLO LPN LPN Signed: 05/09/2024 10:35 REID CEDILLO [place] [facility]
--- OUTSIDE RECORDS SUMMARY | 2024-06-07 13:34 | XMS_ITS | Encounter Summary ---
Author Name [facility] [place] Organization [place] Address [address] [place] [address] Care Team Providers Care Program Engineer Name Role Phone KIARA ESPARZA Primary [...] Colbert's Name Patient's Relationship to Policy Colbert [facility] (WNR) MEDICARE ADVANTAGE [facility] (WNR) Jun 01, 2017 [id number] Krishan TATE PATIENT [facility] (WNR) MEDICARE ADVANTAGE [facility] (WNR) Jun 01, 2017 [id number] Krishan TATE PATIENT [facility] (WNR) MEDICARE ADVANTAGE [facility] (WNR) Jun 01, 2017 [id number] Krishan TATE PATIENT Selected Encounter This section includes the information on record at [place] for the Encounter. Date/Time Encounter Type Encounter Description Reason Pro vider Source Jun 03, 2024 02:47 PM Outpatient Encounter PRIMARY CARE/MEDICINE IHE Encounter Template Text not used by [place] Plan of Treatment: Future Appointments (+ 6 months) and Future Tests (+/- 45 days) The Plan of Treatment section includes future care activities for the patient from all [place] [facility]. This section includes future appointments and future orders which are active, pending or scheduled. Future Appointments This section includes appointments that were scheduled to occur 6 months from the date of the Encounter, up to a maximum of 20 appointments. The data comes from all [facility]. Appointment Date/Time Appointment Type Appointme nt Facility Name Jun 07, 2024 10:30 AM AMBULATORY - NONE [place] [facility] [place] [facility] Jun 22, 2024 10:50 AM AMBULATORY - MEDICINE [place] [facility] [place] [facility] Jul 05, 2024 02:30 PM AMBULATORY - MEDICINE [place] [facility] [place] [facility] Jul 19, 2024 01:00 PM AMBULATORY - MEDICINE [place] [facility] [facility] Aug 05, 2024 11:00 AM AMBULATORY - MEDICINE [place] [facility] [place] [facility] Aug 19, 2024 11:00 AM AMBULATORY - MEDICINE [place] [facility] [facility] Sep 13, 2024 11:00 AM AMBULATORY - MEDICINE [place] [facility] [place] [facility] Sep 13, 2024 11:30 AM AMBULATORY - MEDICINE [facility] [place] [facility] Active, Pending, and Scheduled Orders This section includes a listing of several types of active, pending, and scheduled orders, including clinic medications orders, diagnostic test orders, procedure orders and consult orders; where the start date of the order is 45 days before the date of the Encounter or 45 days after the date of theEncounter. The data comes from all [facility]. Test Date/Time Test Type Test Details Facility Name May 09, 2024 11:19 AM Consult Order COMMUNITY CARE-CARDIOLOGY Cons Track Inspector's Choice [place] [facility] [place] [facility] May 29, 2024 07:50 AM Consult Order COMMUNITY CARE-COLONOSCOPY DIAGNOSTIC Cons Track Inspector's [facility] Jun 03, 2024 02:20 PM Consult Order PROSTHETIC S REQUEST - COMPRESSION STOCKINGS Cons Track Inspector's Choice [facility] Lab Results: +/- 30 days [...] Range Comment May 31, 2024 11:20 AM [facility] PT & INR (COUMADIN) Specimen Type: PLASMA No comment entered. Ordering Provider: STEVE ESPARZA Report Released Date/Time: May 27, 2024 04:53 PM Reporting Lab: [address] [address] Performing Lab: [facility] [address] INR 1.5 PROTIME 16.6 s H 10.0-13.1 May 31, 2024 11:20 AM [facility] CREATININE (eGFR 2020) Specimen Type: SERUM No comment entered. Ordering Provider: STEVE ESPARZA Report Released Date/Time: May 27, 2024 04:53 PM Reporting Lab: [facility] [address] [address] Performing Lab: [facility] [address] CREATININE, Serum 0.85 mg/dL 0.50-1.40 eGFR(CKD-EPI 2020) 84 mL/min >60 May 31, 2024 11:20 AM [facility] LIVER FUNCTION Specimen Type: SERUM No comment entered. Ordering Provider: STEVE ESPARZA Report Released Date/Time: May 27, 2024 04:53 PM Reporting Lab: [facility] [address] Performing Lab: [address] [address] PROTEIN,TOTAL 5.8 g/dL L 6.0-8.3 ALBUMIN 3.7 g/dL 3.5-5.0 ALKALINE PHOSPHATASE 43 U/L 40-150 AST 11 U/L 5-34 ALT 13 U/L BILIRUBIN, TOTAL 0.5 mg/dL 0.2-1.2 May 31, 2024 11:20 AM [facility] CBC Specimen Type: BLOOD Comment: Verified by repeat analysis. Critical result acknowledged. CATARINO , [id number], 12:13, JCL Ordering Provider: STEVE ESPARZA Report Released Date/Time: May 27, 2024 04:53 PM Reporting Lab: [address] [address] Performing Lab: [address] [address] WBC 6.32 10*3/uL 4.50-11.00 RBC 3.26 10*6/uL L 4.23-5.66 HGB 7.5 g/dL LL 12.8-17 HCT 26.2 L 39.2-50.4 MCV 80.4 fL L 82-99 MCHC 28.6 g/dL L 30.8-35.1 PLT 309 10*3/uL 140-360 RDW-CV 19.1 H 12.0-16.0 MCH 23.0 pg L 26.2-32.6 Vital Signs: All taken on the encounter date This section contains inpatient and outpatient Vital Signs collected on the date of the Encounter. Date/Time Temperature Pulse Blood Pressure Respiratory Rate SP02 Pain Height Weight Body Mass Index Source Jun 03, 2024 01:27 PM 98.2 56 128/66 16 98 0 204 33 [facility] Social History: Smoking Status (Most current) and Tobacco Use (All prior to encounter date) This section includes the most current, and the historical, smoking and tobacco- related health factors from the [place] facility where the Encounter took place. Current Smoking Status This section includes the most current smoking, or tobacco-related health factor, from the [place] facility where the Encounter took place. Date/Time Current Smoking Status Comment [facility] Dec 21, 2023 11:40 AM VA-TOBACCO QUIT 15 YRS OR MORE [place] [facility] [place] [facility] Tobacco Use History This section includes a history of the smoking, or tobacco-related health factors, that were collected on or before the date of the Encounter. The data comes from the [place] facility where the Encounter took place. Date/Time Smoking Status/Tobac co Use Comment [facility] Dec 21, 2023 11:40 AM VA-TOBACCO QUIT 15 YRS OR MORE [place] [facility] [facility] Oct 31, 2022 11:30 AM VA-TOBACCO FORMER USER [facility] [place] [facility] Oct 31, 2022 11:30 AM VA-TOBACCO QUIT 15 YRS OR MORE [place] [facility] [facility] Sep 17, 2021 03:00 PM VA-TOBACCO FORMER USER [place] [facility] [place] [facility] Sep 17, 2021 03:00 PM VA-TOBACCO QUIT 15 YRS OR MORE [place] [facility] [facility] Aug 15, 2020 10:00 AM VA-TOBACCO FORMER USER [place] [facility] [facility] Aug 15, 2020 10:00 AM VA-TOBACCO QUIT 15 YRS OR MORE [place] [facility] [place] [facility] May 12, 2019 03:07 PM VA-TOBACCO FORMER USER [facility] [place] [facility] May 12, 2019 03:07 PM VA-TOBACCO QUIT 15 YRS OR MORE [place] [facility] [facility] May 31, 2018 01:08 PM VA-TOBACCO FORMER USER [place] [facility] [facility] May 31, 2018 01:08 PM VA-TOBACCO QUIT 15 YRS OR MORE [facility] [place] [facility] Feb 16, 2017 01:33 PM QUIT TOBACCO USE > 7 YEARS AGO quit 16 years ago [place] [facility] [place] [facility] Nov 13, 2015 03:48 PM QUIT TOBACCO USE > 7 YEARS AGO . [facility] [place] [facility] May 12, 2013 12:49 PM QUIT TOBACCO USE > 7 YEARS AGO quit 2001 [place] [facility] [place] [facility] Advance Directives: All historical and current Section Date Range: From patient's date of to the date document was created. This section includes ALL of a patient's completed or amended [place] Advance and Rescinded Directives. The entries below indicate that a directive exists for the patient, but an actual copy is not included with this document. The data comes from all [place] facilities. Date Advance Directives Provider Source Nov 03, 2022 ADVANCE DIRECTIVE LENORA CARCAMO [facility] Aug 16, 2020 ADVANCE DIRECTIVE EDMUND MORGAN [facility] Encounter Notes: All associated encounter notes This section contains the clinical notes associated to the Encounter. Date/Time Encounter Note(s) Provider Source Jun 03, 2024 02:47 PM CLINICAL WARNING: LOCAL TITLE: COMMUNICATION AUTHORIZATION STANDARD TITLE: CLINICAL WARNING DATE OF NOTE: JUN 03, 2024@14:47 ENTRY DATE: JUN 03, 2024@14:47:38 AUTHOR: JHONATAN APARICIO EXP COSIGNER: URGENCY: STATUS: COMPLETED Family/Caregiver Name: Primary: Anaya Monreal Secondary: Sepideh Kent Tertiary: Rosina Tobin Authorized Clinic & Topics: All Clinic's & Topics: All Care/Coordination Primary Care: Mental Health: Specialty Care: [id number] Protected Info: [ ] Drug Abuse [ ] Alcohol Abuse [ ] HIV [ ] Sickle Cell Expiration: Date: [ ] At [X] Through [ ] At end of care /elizabeth/ KYLIE BROOKS ADVANCED LEGAL ANALYST Signed: 06/03/2024 14:50 JHONATAN APARICIO [facility]
--- OUTSIDE RECORDS SUMMARY | 2024-06-07 13:34 | XMS_ITS | Encounter Summary ---
Author Name [place] Address [address] [place] [address] Care Team Providers Care Insulation Applicator Name Role Phone KIARA CASH Primary Care [...] Name Patient's Relationship to Policy Colbert BCBS [facility] (WNR) MEDICARE ADVANTAGE [facility] (WNR) Jun 01, 2017 [id number] [phone] Krishan TATE PATIENT [facility] (WNR) MEDICARE ADVANTAGE [facility] (WNR) Jun 01, 2017 [id number] [phone] Krishan TATE PATIENT [facility] (WNR) MEDICARE ADVANTAGE [facility] (WNR) Jun 01, 2017 [id number] [phone] Krishan TATE PATIENT Selected Encounter This section includes the information on record at [place] for the Encounter. Date/Time Encounter Type Encounter Description Reason Provider Source Jun 03, 2024 01:30 PM OFFICE O/P EST LOW 20 MIN PRIMARY CARE/MEDICINE ICD-10-CM D64.9 Anemia, unspecified VANWAGNER,WILL NEREIDA F IHE Encounter Template Text not used by [place] Assessments - Encounter Diagnoses This section includes the primary and secondary diagnoses documented for the Encounter. Date/Time Primary/Secondary Diagnosis Diagnosis Name Provider Source Jun 03, 2024 02:09 PM PRIMARY Anemia, unspecified VANWAGNER,STEVE JLUIS F [place] [facility] [facility] Jun 03, 2024 02:09 PM SECONDARY Hematuria, unspecified VANWAGNER,STEVE JLUIS F [facility] [place] [facility] Jun 03, 2024 02:09 PM SECONDARY Unspecified atrial fibrillation VANWAGNER,STEVE JLUIS F [place] [facility] [facility] Plan of Treatment: Future Appointments (+ 6 months) and Future Tests (+/- 45 days) The Plan of Treatment section includes future care activities for the patient from all [place] [facility]. This section includes future appointments and future orders which are active, pending or scheduled. Future Appointments This section includes appointments that were scheduled to occur 6 months from the date of the Encounter, up to a maximum of 20 appointments. The data comes from all [place] treatment facilities. Appointment Date/Time Appointment Type Appointme nt Facility Name Jun 07, 2024 10:30 AM AMBULATORY - NONE [facility] [place] [facility] Jun 22, 2024 10:50 AM AMBULATORY - MEDICINE [facility] [place] [facility] Jul 05, 2024 02:30 PM AMBULATORY - MEDICINE [facility] [place] [facility] Jul 19, 2024 01:00 PM AMBULATORY - MEDICINE [facility] [place] [facility] Aug 05, 2024 11:00 AM AMBULATORY - MEDICINE [facility] [place] [facility] Aug 19, 2024 11:00 AM AMBULATORY - MEDICINE [facility] [place] [facility] Sep 13, 2024 11:00 AM AMBULATORY - MEDICINE [place] [facility] [place] [facility] Sep 13, 2024 11:30 AM AMBULATORY - MEDICINE [facility] Active, Pending, and Scheduled Orders This section includes a listing of several types of active, pending, and scheduled orders, including clinic medications orders, diagnostic test orders, procedure orders and consult orders; where the start date of the order is 45 days before the date of the Encounter or 45 days after the date of theEncounter. The data comes from all [place] treatment facilities. Test Date/Time Test Type Test Details Facility Name May 09, 2024 11:19 AM Consult Order COMMUNITY CARE-CARDIOLOGY Cons Medical Services Coordinator's Choice [facility] May 29, 2024 07:50 AM Consult Order COMMUNITY CARE-COLONOSCOPY DIAGNOSTIC Cons Medical Services Coordinator's Choice [facility] Jun 03, 2024 02:20 PM Consult Order PROSTHETIC S REQUEST - COMPRESSION STOCKINGS Cons Medical Services Coordinator's Choice [facility] Lab Results: +/- 30 days of the encounter This section includes the Chemistry and Hematology Lab Results on record with [place] for the patient. Radiology Reports and Pathology Reports are provided separately, in subsequent sections. Lab Results This section contains the Chemistry/Hematology Results that were resulted 30 days before or 30 daysafter the date of the Encounter. Date/Time Source Result Type Result - Unit Interpretation Reference Range Comment May 31, 2024 11:20 AM [facility] CREATININE (eGFR 2020) Specimen Type: SERUM No comment entered. Ordering Provider: STEVE CASH Report Released Date/Time: May 27, 2024 04:53 PM Reporting Lab: [facility] [address] [facility] [address] Performing Lab: [address] [address] CREATININE, Serum 0.85 mg/dL 0.50-1.40 eGFR(CKD-EPI 2020) 84 mL/min >60 May 31, 2024 11:20 AM [facility] PT & INR (COUMADIN) Specimen Type: PLASMA No comment entered. Ordering Provider: STEVE CASH Report Released Date/Time: May 27, 2024 04:53 PM Reporting Lab: [facility] [address] [facility] [address] Performing Lab: [facility] [address] INR 1.5 PROTIME 16.6 s H 10.0-13.1 May 31, 2024 11:20 AM [facility] LIVER FUNCTION Specimen Type: SERUM No comment entered. Ordering Provider: STEVE CASH Report Released Date/Time: May 27, 2024 04:53 PM Reporting Lab: [facility] [address] [facility] [address] Performing Lab: [address] [address] PROTEIN,TOTAL 5.8 g/dL L 6.0-8.3 ALBUMIN 3.7 g/dL 3.5-5.0 ALKALINE PHOSPHATASE 43 U/L 40-150 AST 11 U/L 5-34 ALT 13 U/L BILIRUBIN, TOTAL 0.5 mg/dL 0.2-1.2 May 31, 2024 11:20 AM [facility] CBC Specimen Type: BLOOD Comment: Verified by repeat analysis. Critical result acknowledged. CATARINO , [id number], 12:13, JC Ordering Provider: STEVE CASH Report Released Date/Time: May 27, 2024 04:53 PM Reporting Lab: [facility] [address] [address] Performing Lab: [facility] [address] [address] WBC 6.32 10*3/uL 4.50-11.00 RBC 3.26 10*6/uL [...] 56 128/66 16 98 0 204 33 [place] [facility] [facility] Social History: Smoking Status (Most current) and Tobacco Use (All prior to encounter date) This section includes the most current, and the historical, smoking and tobacco- related health factors from the [place] facility where the Encounter took place. Current Smoking Status This section includes the most current smoking, or tobacco-related health factor, from the [place] facility where the Encounter took place. Date/Time Current Smoking Status Comment [facility] Dec 21, 2023 11:40 AM VA-TOBACCO FORMER USER [place] [facility] [place] [facility] Tobacco Use History This section includes a history of the smoking, or tobacco-related health factors, that were collected on or before the date of the Encounter. The data comes from the [place] facility where the Encounter took place. Date/Time Smoking Status/Tobac co Use Comment Facility Dec 21, 2023 11:40 AM VA-TOBACCO QUIT 15 YRS OR MORE [facility] [place] [facility] Oct 31, 2022 11:30 AM VA-TOBACCO FORMER USER [facility] [place] [facility] Oct 31, 2022 11:30 AM VA-TOBACCO QUIT 15 YRS OR MORE [facility] [place] [facility] Sep 17, 2021 03:00 PM VA-TOBACCO FORMER USER [facility] [place] [facility] Sep 17, 2021 03:00 PM VA-TOBACCO QUIT 15 YRS OR MORE [facility] [facility] Aug 15, 2020 10:00 AM VA-TOBACCO FORMER USER [facility] [place] [facility] Aug 15, 2020 10:00 AM VA-TOBACCO QUIT 15 YRS OR MORE [facility] [place] [facility] May 12, 2019 03:07 PM VA-TOBACCO FORMER USER [facility] [place] [facility] May 12, 2019 03:07 PM VA-TOBACCO QUIT 15 YRS OR MORE [facility] [facility] May 31, 2018 01:08 PM NM-TOBACCO FORMER USER [facility] May 31, 2018 01:08 PM VA-TOBACCO QUIT 15 YRS OR MORE [facility] Feb 16, 2017 01:33 PM QUIT TOBACCO USE > 7 YEARS AGO quit 16 years ago [facility] Nov 13, 2015 03:48 PM QUIT TOBACCO USE > 7 YEARS AGO . [facility] May 12, 2013 12:49 PM QUIT TOBACCO USE > 7 YEARS AGO quit 2001 [facility] Advance Directives: All historical and current Section Date Range: From patient's date of to the date document was created. This section includes ALL of a patient's completed or amended [place] Advance and Rescinded Directives. The entries below indicate that a directive exists for the patient, but an actual copy is not included with this document. The data comes from all [place] facilities. Date Advance Directives Provider Source Nov 03, 2022 ADVANCE DIRECTIVE LENORA CARCAMO [facility] Aug 16, 2020 ADVANCE DIRECTIVE EDMUND MORGAN [facility] Encounter Notes: All associated encounter notes This section contains the clinical notes associated to the Encounter. Date/Time Encounter Note(s) Provider Source Jun 03, 2024 02:05 PM PHYSICIAN TRUCK CRANE OPERATOR HELPER NOTE: LOCAL TITLE: PA NOTE STANDARD TITLE: PHYSICIAN TRUCK CRANE OPERATOR HELPER NOTE DATE OF NOTE: JUN 03, 2024@14:05 ENTRY DATE: JUN 03, 2024@14:05:09 AUTHOR: KIARA CASH EXP COSIGNER: URGENCY: STATUS: COMPLETED WILLOW NOTE Has ADDENDA CC/HPI/A/P: 88 year old MALE here with Anaay and TAD Almaguer in follow-up for; Anemia, pend GI fu next week. He has some late day pedal edema, no chest pain nor sob. Exam finds 1+ pedal edema to mid reeves bilaterally. There were no major med changes X the addition of Eliquis and stopping baby aspirin in the hospital. Review of systems: Patient reports no changes from [place], in meds or any admissions. Active problems - Computerized Problem List is the source for the followin. Long-term current use of anticoagulant 2. Atrial fibrillation 3. Hematuria (SCT 19145412) 4. Inflamed Seborrheic Keratosis (SCT 85012900) 5. Glaucoma 6. Chronic gastric ulcer 7. Obesity 8. Primary generalized osteoarthritis 9. Obstructive sleep apnea syndrome 10. Coronary arteriosclerosis 11. Benign essential hypertension (SNOMED CT 4072355) 12. 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 BPH W/O URINARY OBSTRUCT SERVICE CONNECTED % [...] FOR KNEES Indication: FOR LOCALIZED PAIN 3) EYELID CLEANSER,EYE SCRUB PAD USE 1 PAD TOPICALLY ONCE DAILY ACTIVE Indication: BLEPHARITIS 4) HYLAN G-F20 48MG/6ML INJ SYRINGE 6ML INJECT 48MG/6ML ACTIVE INTRA-ARTICULAR NEEDED DIRECTED BY PROVIDER Indication: FOR OSTEOARTHRITIS OF THE KNEE 5) HYPROMELLOSE 0.3% OPH GEL APPLY 1 TO 2 DROPS INTO EACH EYE ACTIVE AT BEDTIME Indication: FOR DRY EYE 6) LACTULOSE 10GM/15ML ORAL SOLN TAKE 30 ML (2 TABLESPOONS) BY ACTIVE MOUTH TWICE DAILY NEEDED Indication: FOR CONSTIPATION 7) LATANOPROST 0.005% OPH SOLN INSTILL 1 DROP INTO EACH EYE AT ACTIVE BEDTIME Indication: FOR INCREASED PRESSURE IN THE EYE 8) LIDOCAINE 5% PATCH APPLY 1 PATCH TOPICALLY ONCE DAILY (LEAVE ACTIVE PATCH ON FOR 12 HOURS THEN LEAVE OFF FOR 12 HOURS) Indication: FOR NERVE PAIN 9) LISINOPRIL 10MG TAB TAKE ONE TABLET BY MOUTH ONCE DAILY TO ACTIVE CONTROL BLOOD PRESSURE 10) METOPROLOL TARTRATE 50MG TAB TAKE ONE TABLET BY MOUTH TWICE ACTIVE DAILY FOR BLOOD PRESSURE/HEART 11) OMEPRAZOLE 20MG EC CAP TAKE ONE CAPSULE BY MOUTH EVERY ACTIVE MORNING 30 MINUTES BEFORE BREAKFAST 12) POLYETHYLENE GLYCOL 3350 ORAL PWDR TAKE 17 GRAMS(FILL CAP TO ACTIVE 17GM LINE) BY MOUTH ONCE DAILY [MIX WITH 4 TO 8OZ. OF BEVERAGE] Indication: FOR CONSTIPATION 13) ROSUVASTATIN CA 40MG TAB TAKE ONE TABLET BY MOUTH ONCE DAILY ACTIVE FOR CHOLESTEROL Indication: FOR HIGH CHOLESTEROL 14) TAMSULOSIN HCL 0.4MG CAP TAKE ONE CAPSULE BY MOUTH ONCE ACTIVE DAILY Indication: FOR ENLARGED PROSTATE Inactive Outpatient Medications Status 1) CARBOXYMETHYLCELLULOSE NA 0.5% OPH SOLN INSTILL 1 DROP INTO EACH EYE FOUR TIMES DAILY NEEDED FOR DRYNESS Indication: FOR DRY EYE Active Non-VA Medications Status 1) Non-VA ACETAMINOPHEN TAB 1300 BY MOUTH EVERY MORNING AND ACTIVE 650MG BY MOUTH EVERY EVENING 2) Non-VA ASPIRIN 81MG EC TAB 81MG BY MOUTH DAILY ACTIVE 3) Non-VA MULTIVITAMIN/MINERALS CAP/TAB 1 TABLET BY MOUTH EVERY ACTIVE MORNING 18 Total Medications 98.2 F [36.8 C] (06/03/2024 13:27) 56 (06/03/2024 13:27) 16 (06/03/2024 13:27) 128/66 (06/03/2024 13:27) 0 (06/03/2024 13:27) 66 in [167.6 cm] (05/09/2024 10:20) 204 lb [92.53 kg] (06/03/2024 13:27) BMI: 33.0 Neuro: Alert and oriented times three, grossly nonfocal, nasolabial folds intact. Recent labs reviewed with patient today:last week on the phone. /elizabeth/ Kiara Cash PA-C STAFF PHYSICIAN TRUCK CRANE OPERATOR HELPER Signed: 06/03/2024 14:09 06/03/2024 ADDENDUM STATUS: COMPLETED measured for knee high compression stockings calf @39cm/15.5 inches ankle @27.5 cm 10.5 inches /elizabeth/ GATITO HOUSTON LPN Signed: 06/03/2024 14:16 KIARA CASH [facility]
[2024-06-07 13:42] LABS: Folate 16.8 ng/mL (> or = 4.0); Vitamin B12 414 pg/mL (200-900)
== END 2024-06-07 11:39 | disposition home or self-care (01) ==
LOC: HO.LAB 11:38
PROVIDERS: PCP Physician Assistant; Visit Provider Internal Medicine
DX: D50.0 Iron deficiency anemia secondary to blood loss (chronic) (principal)
CPT/HCPCS: 36415; 82607; 82728; 82746; 83540; 85025

== ENCOUNTER 2025-03-15 10:50 | Outpatient (AMB) | payer OTHER, SELFPAY ==
--- NOTE | 2025-03-15 11:04 | A.OFFVIS_ITS ---
Intake Visit Reasons: 6M STROKE Allergies Penicillins (PENICILLINS) Allergy (Intermediate, Verified 08/04/23 13:54) RASH PENICILLIN Allergy (Unknown, Uncoded 08/04/23 13:54) Rash Medication List - Last Reconciled 03/15/25 by Enrique Castillo MD acetaminophen ER (Tylenol Arthritis Pain) 650 mg PO Q12H ammonium lactate 12% 1 appl topical DAILY aspirin (Adult Aspirin Regimen) 81 mg PO DAILY carboxymethylcellulose sodium 0.5% 1 drp ophthalmic (eye) QID ferrous sulfate 325 mg PO DAILY latanoprost 0.005% 1 drp ophthalmic (eye) DAILY lisinopril 10 mg PO DAILY metoprolol tartrate 50 mg PO BID multivitamin (Multiple Vitamins tablet) 1 tab PO DAILY pantoprazole DR 40 mg PO DAILY rosuvastatin 40 mg PO DAILY tamsulosin 0.4 mg PO BEDTIME timolol 0.5% 1 drp ophthalmic (eye) DAILY HPI Comments Details: Balance is stable. Occasionally uses acane on a dirt road. No stroke like sx. He had IV iron infusion. His last Hgb was 12.7. He became severely anemic from GI bleeding with Hgb of 4.2 and his Eliquis has been stopped . Had cauterization of multiple vessels in upper and lower GI tract. Plavix also had to be stopped. He had multiple transfusions. Also has a Wazman device for closure of left atrial appendage. Balance has been stable but may be worse. No falls. No major dizzy spells. Doing well with no sx of TIA, Dizziness etc. BP is better controlled. Does cardio exercise class and swimming. Gets a bit off balance upon getting up from a long period of sitting. Sees Dr Mariusz Elliott. In the end of November 2017, he had a sudden onset of dizziness with lightheadedness and ataxia ,?CAT scan of the head 6 days after the event showed a left cerebellar infarct which appears old and some of which might be subacute.? He uses nasal CPAP for 7 hours for severe obstructive sleep apnea. He also has a lot of periodic leg movements of sleep. [facility] Medical History (Updated 03/15/25 @ 11:10 by Enrique Castillo MD) Right bundle branch block Peptic gastritis COPD (chronic obstructive pulmonary disease) TIA (transient ischemic attack) Benign prostatic hyperplasia Erectile dysfunction Hyperlipidemia, unspecified Essential hypertension BETINA (obstructive sleep apnea) Atherosclerotic cardiovascular disease Surgical History (Updated 05/16/24 @ 14:27 by Yuko Person) Hx of cardiac cath Family History (Updated 08/04/23 @ 13:59 by Heather Mason) Mother Stroke Father Glaucoma Social History (Updated 08/04/23 @ 13:59 by Heather Mason) Alcohol intake: never Patient Tobacco Use Status: Former Tobacco user Review of Systems Const Details: General/Constitutional:? Change in appetitedenies.? Chillsdenies.? Fatiguedenies.? Feverdenies.? Weight gainadmits.? Weight lossdenies. ???Sleep:? Difficulty getting to sleepdenies.? Difficulty maintaining sleepdenies?.? Urge to move legsdenies.? Teeth grindingdenies.? Shouting or Kicking during sleep admits.? Abnormal behavior during sleepdenies.? Excessive sleepdenies.? Snoring admits.? Daytime sleepinessdenies. ???Respiratory:? Shortness of breathdenies.? Chest paindenies.? Coughdenies. ???Cardiovascular:? Chest pain at restdenies.? Chest pain with exertiondenies.? Claudicationdenies .? Dizzinessdenies.? Fluid accumulation in the legsdenies.? Irregular heartbeat denies.? Palpitationsdenies. ???Gastrointestinal:? Abdominal paindenies.? Constipationdenies.? Diarrheadenies.? Difficulty swallowingdenies.? Heartburndenies.? Nauseadenies.? Rectal bleedingdenies. ???Genitourinary:? Frequent urinationadmits.? Urgencydenies.? Incontinencedenies.? Erectile Dysfunctionadmits. ???Musculoskeletal:? Neck paindenies.? Back paindenies.? Muscle achesdenies.? Painful jointsadmits.? Sciaticadenies.? Weaknessdenies. ???Neurologic:? Difficulty swallowingdenies.? Balance difficultyadmits.? Coordinationnormal.? Difficulty speakingdenies.? Dizzinessadmits.? Faintingdenies.? Gait abnormality denies.? Headachedenies.? Loss of strengthdenies.? Loss of use of extremity denies.? Low back paindenies.? Memory lossdenies.? Seizuresdenies.? Ticsdenies.? Tingling/Numbnessdenies.? Transient loss of visiondenies.? Tremordenies. ???Psychiatric:? Anxietydenies.? Auditory/visual hallucinationsdenies.? Delusionsdenies.? Depressed mooddenies.? Stressorsdenies.? Substance abusedenies.? Suicidal thoughtsdenies. Physical Exam Neuro Other: Neurological: Abnormal neurological findings:??none.?Mental Status:??alert and oriented X 3,?Normal attention, orientation, memory and affect.?Cranial Nerves:??Pupils are equal, round and reactive to light. Fundoscopy shows normal disc bilaterally. External occular muscles are intact. Visual malik are full, no ptosis. Face is symmetrical, no facial weakness or droop. Facial sensations are normal. Tongue protrudes in midline. Palate elevates symmetrically. Shoulder shrugging is normal..?Motor Examination:??Normal muscle tone, bulk and strength,?No atrophy or fasciculations,?No drift of the extended upper extremities,?Deep tendon reflexes are 2+?,?Plantars are flexor?.?Straight Leg Raising:??90 degrees.?Sensory Exam:??Normal light touch, temperature, pinprick, vibration and joint-position sensations?,?Rhomberg sign is absent.?Coordination:??no ataxia,?no titubation,?qdtgcs-eg-ytvx, vivd-pbli-bluu test and rapid alternating movements were normal.?Gait Exam:??Within normal limits.?Cerebellar Signs:??Orzcvh-ll-ctvk and kogu-ze-alhn is normal,?no dysdiadochokinesia?.?Extrapyramidal System:??No tremor, rigidity with normal facial expressions,?No bradykinesia, no bradyphrenia. Normal arm swing and posture. No propulsion or retropulsion.?Speech:??Normal,?no dysphasia or dysarthria..? Mini Mental Status Exam: Level of Consciousness:??Alert.?Orientation:??Knows correct year, month, date, day and season.?Knows correct city, county and state. Knows correct location and floor.?Registration:??Able to register 3 objects.?Attention:??Serial 7's performed accurately.?Recall:??Able to recall 3 out of 3 objects.?Language:??Normal spontaneous speech, fluency, repetition, naming, comprehension, reading, and writing.?Total Score:??30/30.? General Examination: GENERAL APPEARANCE:??normal,?in no acute distress.?HEART:??S1, S2 normal,?no murmurs.?LUNGS:??clear anteriorly and posteriorly.?MUSCULOSKELETAL:??normal.?EXTREMITIES:??no edema.?PSYCH:??alert, o riented,?cognitive function intact,?cooperative with exam.? 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 MRI shows microvascular disease and old left cerebellar infarct. 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
--- OUTSIDE RECORDS SUMMARY | 2025-03-15 13:14 | XMS_ITS | Encounter Summary ---
Author Organization [facility] Address [address] [address] Phone Care Team Providers Care Assistant Manager/Embalmer Name Role Phone Pcp, Unknown Primary Care Provider Unavailabl e Encounter Details Date Type Department Care Team (Late st Contact Info) Description 05/10/2021 Procedure Pass OR Admitting Dept - Virtual Department [address] [place] [address] Social History Tobacco Use Types Packs/Day Years Used Date Smoking Tobacco: Former Smokeless Tobacco: Never Comments:quit 2001 Alcohol Use Standard Drinks/Week Comments Never 0 (1 standard drink = 0.6 oz pur e alcohol) Sex and Gender Information Value Date Recorded Sex Assigned at Not on file Legal Sex Male 3:53 PM EDT Gender Identity Not on file Sexual Orientation Not on file documented as of this encounter Plan of Treatment Not on file documented as of this encounter Visit Diagnoses Not on filedocumented in this encounter Care Teams Assistant Manager/Embalmer Relationship Specialty Start Date End Date Pcp, Unknown PCP - General 04/08/21 documented as of this encounter Additional Source Comments The information contained in this document represents components of the legal health record. It is not the complete legal health record.[facility]
--- OUTSIDE RECORDS SUMMARY | 2025-03-15 13:14 | XMS_ITS | Clinical Summary ---
Author Organization [facility] Address [address] [place] [phone] Phone Care Team Providers Care Sail Maker Name Role Phone Pcp, Unknown Primary Care Provider Unavailabl e Allergies Active Allergy Reactions Criticality Noted Date Comments Hydrocortisone 05/08/2021 Increase intraocular pressures Nsaids (Non-Steroidal Anti-Inflammatory Drug) 05/08/2021 Due to anemia gi bleeding Penicillins 05/08/2021 Childhood rash Medications aspirin 81 MG EC tablet Take 81 mg by mouth daily. Active lisinopril (PRINIVIL,ZESTR IL) 10 MG tablet Take 10 mg by mouth daily. Active omeprazole (PRILOSEC) 20 MG tablet Take 20 mg by mouth daily. Active metoprolol tartrate (LOPRESSOR) 50 MG tablet Take 50 mg by mouth 2 (two) times a day. Active acetaminophen (TYLENOL) 650 MG CR tablet Take 650 mg by mouth every 8 (eight) hours as needed for pain (specific location in comments). Active carboxymethylce llulose (REFRESH TEARS) 0.5 % Drop 1-2 drops 3 (three) times a day. Active ferrous sulfate 325 mg (65 mg sioux iron) tablet Take 325 mg by mouth daily with breakfast. Active ketoconazole 2 % cream Apply topically daily. Active latanoprost (XALATAN) 0.005 % ophthalmic solution Place 1 drop into each eye nightly at bedtime. Active acnelntl-lup-os rrous gluconate (CENTRUM WITH IRON) 9 mg iron/15 mL Liqd Take 15 mL by mouth daily. Active rosuvastatin (CRESTOR) 40 MG tablet Take 40 mg by mouth daily. Active tamsulosin (FLOMAX) 0.4 mg Cap Take 0.4 mg by mouth daily. Active timoloL maleate, PF, (TIMOPTIC OCUDOSE) 0.5 % Dpet Place 1 drop into each eye daily. Active white petrolatum-mine ral oiL (LACRI-LUBE) 56.8-42.5 % Oint Place 0.25 inches into each eye nightly at bedtime. Active traMADoL (ULTRAM) 50 mg tablet Take 1 tablet (50 mg total) by mouth every 6 (six) hours as needed for pain (specific location in comments). 20 tablet 1 Active traMADoL (ULTRAM) 50 mg tablet Take 1 tablet (50 mg total) by mouth every 6 (six) hours as needed for pain (specific location in comments). 20 tablet 1 Active traMADoL (ULTRAM) 50 mg tablet Take 1 tablet (50 mg total) by mouth every 6 (six) hours as needed for pain (specific location in comments). 20 tablet 1 Active Social History Tobacco Use Types Packs/Day Years Used Date Smoking Tobacco: Former Smokeless Tobacco: Never Comments:quit 2001 Alcohol Use Standard Drinks/Week Comments Never 0 (1 standard drink = 0.6 oz pur e alcohol) Education Answer Date Recorded Are you interested in more education? Not on karthikeyan e 09/27/2022 Are you concerned about learning? Not on file 09/27/2022 No 09/27/2022 No 09/27/2022 Digital Access Answer Date Recorded No 10/26/2022 No 10/26/2022 No 10/26/2022 Reliable internet access at home? Not on file 10/26/2022 Device with a working camera? Not on file Sex and Gender Information Value Date Recorded Sex Assigned at Not on file Legal Sex Male 3:53 PM EDT Gender Identity Not on file Sexual Orientation Not on file Last Filed Vital Signs Vital Sign Reading Time Taken Comments Blood Pressure 170/69 05/10/2021 11:58 AM EST Pulse 48 05/10/2021 11:00 AM EST Temperature 36 C (96.8 F) 05/10/2021 11:58 AM EST Respiratory Rate 16 05/10/2021 11:58 AM EST Oxygen Saturation 96% 05/10/2021 11:58 AM EST Inhaled Oxygen Concentration - - Weight 95.3 kg (210 lb) 05/08/2021 4:11 PM EST Height 170.2 cm (5' 7 ) 05/08/2021 4:11 PM EST Body Mass Index 32.89 05/08/2021 4:11 PM EST Plan of Treatment Health Maintenance Due Date Last Done Comments CREATININE LEVEL 1936 POTASSIUM LEVEL 1936 DEPRESSION SCREENING 1948 RSV VACCINE (1 - 1-dose 75+ series) 2011 Adult Td,Tdap Booster 10/01/2023 09/30/2013 INFLUENZA VACCINE (#1) 2024 , 02/14/2020, 02/23/2019, Additional history exists COVID-19 VACCINE (2024- season) 2025 04/26/2021, 07/13/2020, 06/15/2020 PNEUMOCOCCAL VACCINES (50+ years) Completed 11/08/2014, 09/30/2013 ZOSTER VACCINES Completed 05/12/2019, 01/31, 10/11/2011, Additional history exists HEPATITIS A VACCINES Aged Out No long er eligible based on patient's age to complete this topic HIB VACCINES Aged Out No longer eligi ble based on patient's age to complete this topic MENINGOCOCCAL VACCINES (ACWY) Aged Out No longer eligible based on patient's age to complete this topic MENINGOCOCCAL VACCINES (B) Aged Out N o longer eligible based on patient's age to complete this topic Medical Devices Implanted Type Area Ammonia Box Tender Device Identifier Shelf Expiration Date Model / Serial / Lot Lens Lens Bilateral: Eye Mesh Mesh Abdomen Description:x2 Stent Stent Arterial Description:pci Insurance BLUE CROSS [place] MEDICARE PPO BLUE REPLACEMENT Member Subscriber Plan / Payer (Ef fective 2001-Present) Name:Negar Knight Relation to Subscriber:Self Name:Negar Knight Payer ID:[id number] (NAIC) Type:Medicare Address: [address] [facility] MEDICARE PPO BLUE REPLACEMENT Member Subscriber Plan / Payer (Ef fective 2001-Present) Name:Negar Knight Relation to Subscriber:Self Name:Negar Knight Payer ID:[id number] (NAIC) Type:Medicare Address: [address] [facility] MEDICARE PPO BLUE REPLACEMENT Member Subscriber Plan / Payer (Ef fective 2001-Present) Name:Negar Knight Relation to Subscriber:Self Name:Negar Knight Payer ID:[id number] (NAIC) Type:Medicare Address: [address] [facility] MEDICARE PPO BLUE REPLACEMENT Member Subscriber Plan / Payer (Ef fective 2001-Present) Name:Negar Knight Relation to Subscriber:Self Name:Negar Knight Payer ID:[id number] (NAIC) Type:Medicare Address: [facility] [id number] [facility] MEDICARE PPO BLUE REPLACEMENT Member Subscriber Plan / Payer (Ef fective 2001-Present) Name:Negar Knight Relation to Subscriber:Self Name:Negar Knight Payer ID:[id number] (NAIC) Type:Medicare Address: [address] [employer] MEDICARE PPO BLUE REPLACEMENT Member Subscriber Plan / Payer (Ef fective 2001-Present) Name:EugeneFermin leijakatya Relation to Subscriber:Self Name:Negar Knight Payer ID:[id number] (NAIC) Type:Medicare Address: [address] [employer] MEDICARE PPO BLUE REPLACEMENT Member Subscriber Plan / Payer (Ef fective 2001-Present) Name:Negar Knight Relation to Subscriber:Self Name:Negar Knight Payer ID:[id number] (NAIC) Type:Medicare Address: [address] [facility] MEDICARE PPO BLUE REPLACEMENT Member Subscriber Plan / Payer (Ef fective 2001-Present) Name:Negar Knight Relation to Subscriber:Self Name:Negar Knight Payer ID:[id number] (NAIC) Type:Medicare Address: [address] [employer] MEDICARE PPO BLUE REPLACEMENT [employer] Care Teams Sail Maker Relationship Specialty Start Date End Date Pcp, Unknown PCP - General 04/08/21 Additional Source Comments The information contained in this document represents components of the legal health record. It is not the complete legal health record.[facility]
--- OUTSIDE RECORDS SUMMARY | 2025-03-15 13:14 | XMS_ITS | Encounter Summary ---
Author Organization [facility] Address [address] [place] [address] Phone Care Team Providers Care Rail Loader Name Role Phone Pcp, Unknown Primary Care Provider Unavailabl e Encounter Details Date Type Department Care Team (Latest Contact Info) Description 04/03/2021 Transcribe Orders Virtual Department [address] [place] [address] Luis F Mathis PA [address] [place] [address] Gross hematuria (Primary Dx) Social History Tobacco Use Types Packs/Day Years Used Date Smoking Tobacco: Never Assessed Sex and Gender Information Value Date Recorded Sex Assigned at Not on file Legal Sex Male 3:53 PM EDT Gender Identity Not on file Sexual Orientation Not on file documented as of this encounter Plan of Treatment Not on file documented as of this encounter Results * US Kidneys and Bladder (04/11/2021 11:57 AM EST) Anatomical Region Laterality Modality Abdomen, Kidney Ultrasound 04/11/2021 12:2 1 PM EST Impressions 04/11/2021 12:23 PM EST Right renal cortical cyst and wall non-obstructing left upper pole calculus. Approximate 10% post-void residual bladder volume. POS - [id number] Narrative 04/11/2021 12:23 PM EST COMPARISON: None FINDINGS: Kidneys are within normal limits overall size with the right measuring 12.3 x 5.4 cm and the left 11.1 x 6.0 cm in a longitudinal plane. There is a 9 x 7 x 12 mm simple cyst in the right lower pole. No left-sided cyst apparent. No solid renal mass or hydronephrosis demonstrated. There is a 4 mm calculus in the left upper pole. No right-sided nephrolithiasis. Prevoid bladder measured 191.0 cc and post-void bladder 19.3 cc consistent with an approximate 10% residual volume. No gross intravesicular mass identified. Bilateral ureteral jets were documented. Prostate measured approximately 4.6 cm in diameter. Procedure Note Jamal Santana MD - 04/11/2021 COMPARISON: None FINDINGS: Kidneys are within normal limits overall size with the right ckgjhezxl31.3 x 5.4 cm and the left 11.1 x 6.0 cm in a longitudinal plane. There is a 9 x 7 x 12 mm simple cyst in the right lower pole. Noleft-sided cyst apparent. No solid renal mass or hydronephrosisdemonstrated. There is a 4 mm calculus in the left upper pole. Noright-sided nephrolithiasis. Prevoid bladder measured 191.0 cc and post-void bladder 19.3 cc consistentwith an approximate 10% residual volume. No gross intravesicular massidentified. Bilateral ureteral jets were documented. Prostate measuredapproximately 4.6 cm in diameter. IMPRESSION: Right renal cortical cyst and wall non-obstructing left upper polecalculus. Approximate 10% post-void residual bladder volume. POS - [id number] Luis F DAUGHERTY Ariana RENAL Eileen l Result documented in this encounter Visit Diagnoses Diagnosis Gross hematuria- Primary Gross hematuria documented in this encounter Care Teams Rail Loader Relationship Specialty Start Date End Date Pcp, Unknown PCP - General 04/08/21 documented as of this encounter Additional Source Comments The information contained in this document represents components of the legal health record. It is not the complete legal health record.[facility]
--- OUTSIDE RECORDS SUMMARY | 2025-03-15 13:14 | XMS_ITS | Clinical Summary ---
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] (Primary Dx) 12/28/2024 Billing Patient Not Present Gastroenterology - [address] [phone] Shefali Stringer MD 12/14/2024 Telephone Gastroenterology - [address] [place] [phone] Bk Cai MD 12/14/2024 Telephone Gastroenterology [facility] 175 [facility] [address] [place] [address] Linda Solis MD from Last 3 Months Social History Tobacco Use Types Packs/Day Years Used Date Smoking Tobacco: Never Assessed Sex and Gender Information Value Date Recorded Sex Assigned at Not on file Legal Sex Male 8:26 AM EDT Gender Identity Not on file Sexual Orientation Not on file Plan of Treatment Health Maintenance Due Date Last Done Comments Depression Screening 06/01/2024 Cholesterol Screening (Lipid Panel) 12/14/2024 Falls Risk Assessment 12/14/2024 Medicare Annual Wellness Visit 12/14/2024 Social Influencers of Health Screening 12/14/2024 Hypertension/CHF/CAD Annual BMP Blood Test 12/28/2024 COVID-19 Vaccine ( season) 2025 02/25/2024, 09/08/2023, 07/11/2022, Additional history exists DTaP,Tdap,and Td Vaccines (4 - Td or Tdap) 06/02/2033 06/02/2023, 09/30/2013, 09/30/2013 Zoster Vaccines Completed 05/12/2019, 01/31, 10/11/2011, Additional history exists RSV Immunization Adult Patients Completed 03/02/2023 Influenza Vaccine Completed 02/16/2025, , 03/02/2023, Additional history exists Pneumococcal Vaccine: 50+ Years Completed 02/16/2025, 11/08/2014, 09/30/2013, Additional history exists HIB Vaccines Aged Out No longer eligi ble based on patient's age to complete this topic HPV Vaccines Aged Out No longer eligi ble based on patient's age to complete this topic Hepatitis A Vaccines Aged Out No long er eligible based on patient's age to complete this topic Hepatitis B Vaccines Aged Out No long er eligible based on patient's age to complete this topic IPV Vaccines Aged Out No longer eligi ble based on patient's age to complete this topic MMR Vaccines Aged Out No longer eligi ble based on patient's age to complete this topic Meningococcal ACWY Vaccine Aged Out N o longer eligible based on patient's age to complete this topic Meningococcal B Vaccine Aged Out No l onger eligible based on patient's age to complete this topic RSV Immunization Patients Under 20 months Aged Out No longer eligible based on patient's age to complete this topic Varicella Vaccines Aged Out No longer eligible based on patient's age to complete this topic Procedures Procedure Name Priority Date/Time Associated Diagnosis Comments ENDOSCOPY, SMALL BOWEL Routine 12/28/2024 8:24 AM EDT from Last 3 Months Results * Endoscopy, small bowel with ileum (12/28/2024 8:24 AM EDT) Anatomical Region Laterality Modality Endoscopy us Historical Provider GI~PROCEDURE ORDERABLES F inal Result from Last 3 Months Insurance BLUE [place] - [place] MEDICARE ADVANTAGE [facility] Care Teams Manufacturing Technologist Relationship Specialty Start Date End Date Luis F Mathis PA [address] [place] [address] PCP - General Physician Reel Cart Operator 12/14/24
== END 2025-03-15 11:32 | disposition home or self-care (01) ==
LOC: HO.HSM 10:51
PROVIDERS: PCP Physician Assistant; Referring Provider Physician Assistant; Visit Provider Psychiatry & Neurology Neurology
DX: I63.549 Cerebral infarction due to unspecified occlusion or stenosis of unspecified cerebellar artery (principal); R42 Dizziness and giddiness; G11.9 Hereditary ataxia, unspecified; G47.61 Periodic limb movement disorder
CPT/HCPCS: 99214

== ENCOUNTER → 2025-03-15 10:50 | Outpatient (BNVA) | payer OTHER, SELFPAY | PROVIDERS: PCP Physician Assistant; Referring Provider Physician Assistant; Visit Provider Psychiatry & Neurology Neurology | DX: I63.549 Cerebral infarction due to unspecified occlusion or stenosis of unspecified cerebellar artery (principal); R42 Dizziness and giddiness; G11.9 Hereditary ataxia, unspecified; G47.61 Periodic limb movement disorder | CPT/HCPCS: 99212 ==